=== PATIENT | female | born 1985 | race Hispanic/Latino ===

== ENCOUNTER 2018-03-17 17:52 | Emergency (ER) | payer OTHER ==
--- OUTSIDE RECORDS SUMMARY | 2018-03-17 17:54 | XMS REPORT | Clinical Summary ---
:1985 Author Organization [facility] Address [address] [place] [address] Care Team Providers Name Role Phone Rogelio Evangelista MD Primary Care Provider Allergies No Known Allergies Current Medications Not on file Active Problems Currently Estimated Date of Delivery Comments Yes 10/21/2017 No additional problems on file Encounters Date Type Specialty Care Team Description 05/08/2017 Emergency Emergency Medicine Adolph Anaya, Fall, initial encounter (Primary Dx); Intrauterine normal , first trimester after 03/16/2017 Social History Tobacco Use Types Packs/Day Years Used Date Never Smoker Alcohol Use Drinks/Week oz/Week Comments No Currently Estimated Date of Delivery Comments Yes 10/21/2017 Sex Assigned at Date Recorded Not on file Last Filed Vital Signs Vital Sign Reading Time Taken Blood Pressure 116/57 05/08/2017 3:54 PM CDT Pulse 80 05/08/2017 3:54 PM CDT Temperature 36.4 C (97.5 F) 05/08/2017 3:54 PM CDT Respiratory Rate 16 05/08/2017 3:54 PM CDT Oxygen Saturation 98% 05/08/2017 3:54 PM CDT Inhaled Oxygen Concentration - - Weight - - Height 167.6 cm (5' 6") 05/08/2017 1:26 PM CDT Body Mass Index - - Plan of Treatment Health Maintenance Due Date Last Done Comments CERVICAL CANCER SCREENING 2008 INFLUENZA VACCINE 04/15/2018 Procedures Procedure Name Priority Date/Time Associated Comments Diagnosis US SINGLE STAT 05/08/2017 3:04 Results for this LESS THAN 14 WEEKS PM CDT procedure are in the results section. US STAT 05/08/2017 3:04 Results for this TRANSVAGINAL PM CDT procedure are in the results section. URINALYSIS STAT 05/08/2017 2:06 Results for this PM CDT procedure are in the results section. after 03/16/2017 Results US Single Less Than 14 Weeks (05/08/2017 3:04 PM) Narrative Performed At EXAMINATION:US SINGLE LESS THAN 14 WEEKS [facility] CLINICAL HISTORY:pain after fall at 16 weeks COMPARISON:None. TECHNIQUE:Transverse and longitudinal transvaginal and transabdominal sonographic images of the pelvis were obtained. Grayscale, color Doppler, and spectral waveform analysis of the ovarian vessels was performed. FINDINGS: A live intrauterine gestation measuring 14 weeks 1 day by ultrasound demonstrates a cardiac rate of 160 bpm. The placenta is posterior, though the inferior placental tip is not imaged, in particular relative to the cervix, and follow-up traditional OB ultrasound is therefore recommended, though this could possibly be performed on a nonemergent outpatient basis. The right ovary measures3.7 x 2.1 x 2.7 cm and appears normal. The left ovary is not visualized. Blood flow is documented within the right ovary.. No suspicious fluid is identified.There is a small nabothian cyst. Impression: Live IUP measuring 14 weeks 1 day by ultrasound. ENDOMETRIAL THICKNESS GUIDELINES Pre-menopausal *Menstrual phase : 1 - 4 mm *Proliferative phase (days 6-14) : 5 - 7 mm *Late proliferative phase (trilaminar appearance) : up to 11 mm *Secretory Phase : 7 - 16 mm Post-menopausal without bleeding (acceptable ranges are less well-established) * Up to 8 -11 mm *Greater than 11 mm should prompt biopsy Post-menopausal with bleeding *Atrophy : 5 mm or less *Abnormal : greater than 5mm should prompt biopsy Post-menopausal on Tamoxifen *Normal : 5 mm or less *Abnormal : greater than 5 mm (high-rate of false of positive. consider hysteroscopy and biopsy on all patients with bleeding on Tamoxifen) [facility]-[id number] Procedure Note Interface, Radiology Results Incoming - 05/08/2017 3:36 PM CDT EXAMINATION: US SINGLE LESS THAN 14 WEEKS CLINICAL HISTORY: pain after fall at 16 weeks COMPARISON: None. TECHNIQUE:Transverse and longitudinal transvaginal and transabdominal sonographic images of the pelvis were obtained. Grayscale, color Doppler, and spectral waveform analysis of the ovarian vessels was performed. FINDINGS: A live intrauterine gestation measuring 14 weeks 1 day by ultrasound demonstrates a cardiac rate of 160 bpm. The placenta is posterior, though the inferior placental tip is not imaged, in particular relative to the cervix, and follow-up traditional OB ultrasound is therefore recommended, though this could possibly be performed on a nonemergent outpatient basis. The right ovary measures 3.7 x 2.1 x 2.7 cm and appears normal. The left ovary is not visualized. Blood flow is documented within the right ovary.. No suspicious fluid is identified. There is a small nabothian cyst. Impression: Live IUP measuring 14 weeks 1 day by ultrasound. ENDOMETRIAL THICKNESS GUIDELINES Pre-menopausal * Menstrual phase : 1 - 4 mm * Proliferative phase (days 6-14) : 5 - 7 mm * Late proliferative phase (trilaminar appearance) : up to 11 mm * Secretory Phase : 7 - 16 mm Post-menopausal without bleeding (acceptable ranges are less well-established) * Up to 8 -11 mm * Greater than 11 mm should prompt biopsy Post-menopausal with bleeding * Atrophy : 5 mm or less * Abnormal : greater than 5mm should prompt biopsy Post-menopausal on Tamoxifen * Normal : 5 mm or less * Abnormal : greater than 5 mm (high-rate of false of positive. consider hysteroscopy and biopsy on all patients with bleeding on Tamoxifen) [facility]-[id number] Performing Organization Address City/[facility] Phone Number [email or web address] [place] [address] US Transvaginal (05/08/2017 3:04 PM) Narrative Performed At EXAMINATION:US TRANSVAGINAL [facility] CLINICAL HISTORY:Trauma IMPRESSION: Please see accession number [id number] for report. [id number] Procedure Note Interface, Radiology Results Incoming - 05/08/2017 3:08 PM CDT EXAMINATION: US TRANSVAGINAL CLINICAL HISTORY: Trauma IMPRESSION: Please see accession number [id number] for report. [id number] Performing Organization Address City/[facility] Phone Number [email or web address] [place] [address] Urinalysis (05/08/2017 2:06 PM) Glucose, UA Negative Negative DEPART[facility] OF PATHOLOGY [facility] GENOMIC MEDICINE, [facility] Bilirubin, UA Positive@UBIL (A) Negative DEPARTMENT OF PATHOLOGY AND GENOMIC MEDICINE, [facility] Ketones, UA Negative Negative DEPARTMENT OF PATHOLOGY AND GENOMIC MEDICINE, [facility] Specific gravity, UA =>1.030 1.001 - 1.035 [facility] Blood, UA Trace (A) Negative [facility] pH, UA 5.5 5.0 - 8.5 [facility] Protein, UA 1+ (A) Negative [facility] Urobilinogen, UA 2.0 (A) <2.0 [facility] Nitrite, UA Negative Negative [facility] Leukocyte esterase, UA Negative Negative [facility] Color, UA Dark Yellow [facility] Appearance, UA Slightly Hazy [facility] Specimen Urine Performing Organization Address City/State/[facility] Phone Number DEPARTMENT OF PATHOLOGY AND [address] [place] [id number] [place] [address] after 03/16/2017 Insurance Payer Benefit Plan / Group Subscriber ID Type Phone Address MEDICAID MEDICAID xxxxxxxxx Medicaid Work: [id number] [employer]AR[employer] [phone] [place], [place] [address] Home: [phone] [facility]
[2018-03-17] MEDS ORDERED: ONDANSETRON 4 MG/2 ML VIAL ONE (19:10)
[2018-03-17] MEDS ORDERED: MECLIZINE HCL 12.5 MG TAB ONE (19:10)
[2018-03-17] MEDS ORDERED: NA CHLORIDE 0.9% 1,000 ML ONE (19:10)
--- NOTE | 2018-03-17 19:25 | RAD REPORT ---
EXAM DESCRIPTION: RAD - Chest Single View - 03/17/2018 7:21 pm CLINICAL HISTORY: Hypertension Chest pain. COMPARISON: None FINDINGS: Portable technique limits examination quality. The lungs are grossly clear. The heart is normal in size. No displaced fractures. IMPRESSION: No acute intrathoracic process suspected.
--- NOTE | 2018-03-17 19:25 | RAD REPORT ---
EXAM DESCRIPTION: CT - Head Brain Wo Cont - 03/17/2018 7:15 pm CLINICAL HISTORY: elevated blood pressure;Dizziness;Headache COMPARISON: <Comparisons> TECHNIQUE: All CT scans are performed using dose optimization technique as appropriate and may inclu de automated exposure control or mA/KV adjustment according to patient size. FINDINGS: No intracranial hemorrhage, hydrocephalus or extra-axial fluid collection.No areas of brai n edema or evidence of midline shift. The paranasal sinuses and mastoids are clear. The calvarium is intact. IMPRESSION: No acute intracranial abnormality.
[2018-03-17 19:51] LABS: Absolute Lymphocytes (CBC) 2.1 K/uL (0.7-4.9); Absolute Monocytes 0.7 K/uL (0.1-1.3); Absolute Neutrophil 7.6 K/uL (1.8-8.0); Basophils % 0.4 % (0-1.3); Eosinophils % 0.2 % (0-4.4); Hematocrit 36.7 % (36.0-45.0); Lymphocytes % 20.3 % (15.3-44.8); MCH 26.6 pg (27.0-35.0); MCV 79.5 fL (80-100); MPV 8.7 fL (7.6-11.3); Monocytes % 6.6 % (3.3-12.3); RBC Red Blood Cell Count 4.61 M/uL (3.86-4.86)
[2018-03-17 19:57] LABS: Protime INR 1.13
[2018-03-17 20:13] LABS: ALT/SGPT 94 U/L (12-78); AST/SGOT 66 U/L (15-37); Albumin 3.7 g/dL (3.4-5.0); Alkaline Phosphatase 92 U/L (45-117); BUN Blood Urea Nitrogen 14 mg/dL (7-18); Bicarbonate 24 mmol/L (21-32); Bilirubin Direct < 0.1 mg/dL (0-0.2); Bilirubin Total 0.4 mg/dL (0.2-1.0); CKMB Creatine Kinase MB < 1.0 ng/mL (0.3-3.6); Creatine Phosphokinase 126 U/L (26-192); Glucose Level 104 mg/dL (74-106); Magnesium 2.2 mg/dL (1.8-2.4); Potassium 3.8 mmol/L (3.5-5.1); Protein, Total 8.2 g/dL (6.4-8.2); Sodium Level 139 mmol/L (136-145)
[2018-03-17 20:54] LABS: Urine Blood 3+ (NEG); Urine Glucose NEGATIVE (NEG); Urine Protein TRACE (NEG)
[2018-03-17] MEDS ORDERED: ACETAMINOPHEN 500 MG TAB ONE (21:05)
[2018-03-17] MEDS ORDERED: METOCLOPRAMIDE 10 MG/2mL INJ ONE (21:05)
--- NOTE | 2018-03-17 21:29 | EDPHYS ---
Physician Documentation [facility] Name: Zehra Carrillo Age: 32 yrs Sex: Female : 1985 Arrival Date: 03/17/2018 Time: 17:56 Bed 19 Private MD: Go Evangelista E ED Physician Obinna Ladd HPI: 03/17 19:00 This 32 yrs old Female presents to ER via Ambulatory with complaints of High cp Blood Pressure, Headache, Dizziness. 19:00 The patient has elevated blood pressure and discovered this dentist office. Onset: The cp symptoms/episode began/occurred today. Severity of symptoms: At its worst the blood pressure was 160 mm Hg, in the emergency department the blood pressure is improved, 122 mm Hg. 19:00 Associated signs and symptoms: Pertinent positives: dizziness, headache, general cp weakness, Pertinent negatives: chest pain, visual changes, vomiting. 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 - Social history:: Smoking status: Patient/guardian denies using tobacco, Patient/guardian denies using alcohol. - Ebola Screening: : Patient negative for fever greater than or equal to 101.5 degrees Fahrenheit, and additional compatible Ebola Virus Disease symptoms Patient denies exposure to infectious person Patient denies travel to an Ebola-affected area in the 21 days before illness onset. ROS: 19:10 Constitutional: Negative for body aches, chills, fever, poor PO intake. cp 19:10 Eyes: Negative for injury, pain, redness, and discharge. cp 19:10 ENT: Negative for drainage from ear(s), ear pain, sore throat, difficulty swallowing, difficulty handling secretions. 19:10 Cardiovascular: Negative for chest pain, edema, palpitations. 19:10 Respiratory: Negative for cough, shortness of breath, wheezing. 19:10 Abdomen/GI: Negative for abdominal pain, vomiting, diarrhea, constipation, anorexia, black/tarry stool, rectal bleeding. 19:10 Back: Negative for pain at rest, pain with movement, radiated pain. 19:10 : Negative for urinary symptoms. 19:10 Skin: Negative for cellulitis, rash. 19:10 Neuro: Positive for dizziness, headache, general weakness, Negative for altered mental status, syncope, near syncope, visual changes. 19:10 All other systems are negative. Exam: 19:15 Constitutional: The patient appears in no acute distress, alert, awake, cp non-diaphoretic, non-toxic, well developed, well nourished. 19:15 Head/Face: Normocephalic, atraumatic. Eyes: Pupils equal round and reactive to light, cp extra-ocular motions intact. Lids and lashes normal. Conjunctiva and sclera are non-icteric and not injected. Cornea within normal limits. Periorbital areas with no swelling, redness, or edema. ENT: Nares patent. No nasal discharge, no septal abnormalities noted. Tympanic membranes are normal and external auditory canals are clear. Oropharynx with no redness, swelling, or masses, exudates, or evidence of obstruction, uvula midline. Mucous membranes moist. Neck: Trachea midline, no thyromegaly or masses palpated, and no cervical lymphadenopathy. Supple, full range of motion without nuchal rigidity, or vertebral point tenderness. No Meningismus. Chest/axilla: Normal chest wall appearance and motion. Nontender with no deformity. No lesions are appreciated. Cardiovascular: Regular rate and rhythm with a normal S1 and S2. No gallops, murmurs, or rubs. Normal PMI, no JVD. No pulse deficits. Respiratory: Lungs have equal breath sounds bilaterally, clear to auscultation and percussion. No rales, rhonchi or wheezes noted. No increased work of breathing, no retractions or nasal flaring. Abdomen/GI: Soft, non-tender, with normal bowel sounds. No distension or tympany. No guarding or rebound. No evidence of tenderness throughout. Skin: Warm, dry with normal turgor. Normal color with no rashes, no lesions, and no evidence of cellulitis. Neuro: Awake and alert, GCS 15, oriented to person, place, time, and situation. Cranial nerves II-XII grossly intact. Motor strength 5/5 in all extremities. Sensory grossly intact. Cerebellar exam normal. Normal gait. 19:37 ECG was reviewed by the Attending Physician. cp Vital Signs: 18:02 BP 112 / 80; Pulse 93; Resp 18; Temp 98.4(O); Pulse Ox 100% on R/A; Weight 103.42 kg; hj Height 5 ft. 6 in. (167.64 cm); Pain 10/10; 18:50 BP 122 / 87; Pulse 89; Resp 14; Temp 98.5; Pulse Ox 99% on R/A; Pain 8/10; ch 19:30 BP 108 / 71; Pulse 85; Resp 18; Pulse Ox 98% on R/A; lp1 20:30 BP 112 / 69; Pulse 80; Resp 16; Pulse Ox 98% on R/A; lp1 21:30 BP 124 / 79; Pulse 82; Resp 17; Pulse Ox 99% on R/A; lp1 18:02 Body Mass Index 36.80 (103.42 kg, 167.64 cm) hj MDM: 18:32 Patient medically screened. cp 19:00 Differential diagnosis: hypertensive crisis, Malignant HTN, CVA, intracerebral cp hemorrhage, vertigo, electrolyte abnormality. 21:25 Data reviewed: vital signs, nurses notes, lab test result(s), EKG, radiologic studies, cp CT scan, plain films. 21:25 Test interpretation: by ED physician or midlevel provider: ECG, plain radiologic cp studies. Counseling: I had a detailed discussion with the patient and/or guardian regarding: the historical points, exam findings, and any diagnostic results supporting the discharge/admit diagnosis, lab results, radiology results, the need for outpatient follow up, a family practitioner, to return to the emergency department if symptoms worsen or persist or if there are any questions or concerns that arise at home. Response to treatment: the patient's symptoms have markedly improved after treatment, and as a result, I will discharge patient. 03/17 18:56 Order name: Basic Metabolic Panel cp 03/17 18:56 Order name: CBC with Diff; Complete Time: 20:27 cp 03/17 20:27 Interpretation: Normal except: MCV 79.5; MCH 26.6; RDW 16.2. cp 03/17 18:56 Order name: Ckmb; Complete Time: 20:27 cp 03/17 18:56 Order name: CPK; Complete Time: 20:27 cp 03/17 18:56 Order name: LFT's; Complete Time: 20:27 cp 03/17 20:27 Interpretation: Normal except: AST 66; ALT 94; GLOB 4.5; A/G 0.8. 03/17 18:56 Order name: Magnesium; Complete Time: 20:27 cp 03/17 20:45 Interpretation: MG 2.2; Reviewed. 03/17 18:56 Order name: PT-INR; Complete Time: 20:27 cp 03/17 20:44 Interpretation: PT 13.3; Reviewed. 03/17 18:56 Order name: Ptt, Activated; Complete Time: 20:27 cp 03/17 18:56 Order name: Troponin (emerg Dept Use Only); Complete Time: 20:27 cp 03/17 20:28 Interpretation: TROPED < 0.02; Reviewed. 03/17 18:56 Order name: Basic Metabolic Panel; Complete Time: 20:27 EDNY 03/17 20:28 Interpretation: Normal except: CL 109. 03/17 20:49 Order name: Urine Dipstick--Ancillary (enter results) [facility] 03/17 20:49 Order name: Urine --Ancillary (enter results) [facility] 03/17 20:50 Order name: Urine Dipstick-Ancillary [facility] 03/17 20:50 Order name: Urine --Ancillary [facility] 03/17 18:56 Order name: CT Head Brain wo Cont; Complete Time: 19:30 03/17 19:30 Interpretation: Report reviewed. 03/17 18:56 Order name: Urine Test (obtain specimen); Complete Time: 20:48 03/17 18:56 Order name: XRAY Chest (1 view); Complete Time: 19:30 03/17 18:56 Order name: EKG; Complete Time: 18:56 03/17 18:56 Order name: Cardiac monitoring; Complete Time: 19:04 cp 03/17 18:56 Order name: EKG - Nurse/Tech; Complete Time: 19:45 cp 03/17 18:56 Order name: IV Saline Lock; Complete Time: 19:45 cp 03/17 18:56 Order name: Labs collected and sent; Complete Time: 19:45 cp 03/17 18:56 Order name: O2 Per Protocol; Complete Time: 19:04 cp 03/17 18:56 Order name: O2 Sat Monitoring; Complete Time: 19:04 cp 03/17 18:56 Order name: Urine Dipstick-Ancillary (obtain specimen); Complete Time: 20:48 cp EC:37 Rate is 84 beats/min. Rhythm is regular. NV interval is normal. QRS interval is normal. cp QT interval is normal. No ST changes noted. Interpreted by me. Reviewed by me. Administered Medications: 19:44 Drug: Meclizine 25 mg Route: PO; lp1 20:47 Follow up: Response: Other; Dizziness slightly decreased lp1 19:45 Drug: NS 0.9% 1000 ml Route: IV; Rate: 1 bolus; Site: right antecubital; lp1 21:20 Follow up: IV Status: Completed infusion; IV Intake: 1000ml lp1 19:45 Drug: Zofran 4 mg Route: IVP; Site: right antecubital; lp1 20:48 Follow up: Response: Marked relief of symptoms lp1 21:10 Drug: Reglan 10 mg Route: IVP; Site: right antecubital; lp1 21:10 Drug: Tylenol 1000 mg Route: PO; lp1 Disposition: 03/17/18 21:29 Discharged to Home. Impression: Dizziness, Headache, Weakness - General. - Condition is Stable. - Discharge Instructions: Dizziness, General Headache Without Cause, Weakness. - Prescriptions for Meclizine 25 mg Oral Tablet - take 1 tablet by ORAL route every 8 hours As needed; 30 tablet. Zofran 4 mg Oral Tablet - take 1 tablet by ORAL route every 12 hours As needed; 20 tablet. - Medication Reconciliation Form, Thank You Letter, Antibiotic Education, Prescription Opioid Use form. - Follow up: Private Physician; When: 2 - 3 days; Reason: Recheck today's complaints. - Problem is new. - Symptoms have improved. Addendum: 03/19/2018 03:42 Co-signature as Attending Physician, Obinna Ladd MD. g s Signatures: Dispatcher [employer] EDRylie Fajardo RN RN lp1 Brent Garcia RN RN hj Page, Corey, PA PA cp Starr, Gregory, MD MD gs Corrections: (The following items were deleted from the chart) 03/17 21:33 21:29 03/17/2018 21:29 Discharged to Home. Impression: Dizziness; Headache; Weakness - lp1 General. Condition is Stable. Forms are Medication Reconciliation Form, Thank You Letter, Antibiotic Education, Prescription Opioid Use. Follow up: Private Physician; When: 2 - 3 days; Reason: Recheck today's complaints. Problem is new. Symptoms have improved. cp
--- NOTE | 2018-03-17 21:29 | ER ---
Nurse's Notes [facility] Name: Zehra Carrillo Age: 32 yrs Sex: Female : 1985 Arrival Date: 03/17/2018 Time: 17:56 Bed 19 Private MD: Go Evangelista E Diagnosis: Dizziness;Headache;Weakness-General Presentation: 03/17 17:58 Presenting complaint: Patient states: i was at the dentist clinic for a procedure, but hj they didn't do the procedure because my BP was so high; reports dizziness and headache; BP at the dentist is 160/95;. Transition of care: patient was not received from another setting of care. Onset of symptoms was March 17, 2018. Risk Assessment: Do you want to hurt yourself or someone else? Patient reports no desire to harm self or others. Initial Sepsis Screen: Does the patient meet any 2 criteria? No. Patient's initial sepsis screen is negative. Does the patient have a suspected source of infection? No. Patient's initial sepsis screen is negative. Care prior to arrival: None. 17:58 Method Of Arrival: Ambulatory 17:58 Acuity: FRANCISCO 3 Triage Assessment: 18:01 Headache History: Denies prior headaches. General: Appears in no apparent distress. hj uncomfortable, Behavior is calm, cooperative, appropriate for age. Pain: Complains of pain in head Pain currently is 10 out of 10 on a pain scale. Pain began Also complains of nausea. Neuro: Level of Consciousness is awake, alert, obeys commands, Oriented to person, place, time, situation, Appropriate for age. 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 - Social history:: Smoking status: Patient/guardian denies using tobacco, Patient/guardian denies using alcohol. - Ebola Screening: : Patient negative for fever greater than or equal to 101.5 degrees Fahrenheit, and additional compatible Ebola Virus Disease symptoms Patient denies exposure to infectious person Patient denies travel to an Ebola-affected area in the 21 days before illness onset. Screenin:02 Abuse screen: Denies threats or abuse. Denies injuries from another. Nutritional hj screening: No deficits noted. Tuberculosis screening: No symptoms or risk factors identified. Fall Risk None identified. Assessment: 18:20 Reassessment: when pt tracks with her eyes, states she gets very dizzy. General: ch Appears in no apparent distress. uncomfortable, Behavior is calm, cooperative, appropriate for age. Pain: Complains of pain in head Pain currently is 8 out of 10 on a pain scale. Pain began suddenly. Neuro: Level of Consciousness is awake, alert, obeys commands, Oriented to person, place, time, situation, Lead Carpenter are equal bilaterally Moves all extremities. Full function Gait is steady, Speech is normal, Facial symmetry appears normal, Facial symmetry: tongue is midline, Pupils are PERRLA, Reports dizziness, headache. Cardiovascular: Heart tones S1 S2 present Capillary refill < 3 seconds in bilateral fingers toes Clubbing of nail beds is absent Pulses are all present. Edema is 1+ to left ankle and right ankle. Respiratory: Airway is patent Respiratory effort is even, unlabored, Breath sounds are clear bilaterally. GI: Abdomen is obese, Bowel sounds present X 4 quads. Abd is soft and non tender X 4 quads. Reports nausea. : No signs and/or symptoms were reported regarding the genitourinary system. EENT: No signs and/or symptoms were reported regarding the EENT system. Derm: Skin is pink, warm \T\ dry. Musculoskeletal: Circulation, motion, and sensation intact. Capillary refill < 3 seconds, in bilateral fingers. toes. 19:30 General: Appears uncomfortable, Behavior is appropriate for age. Pain: Complains of lp1 pain in head Aggravated by increased activity, Noted to be withdrawn. Neuro: Level of Consciousness is awake, alert, obeys commands, Oriented to person, place, time, situation, Moves all extremities. Full function Gait is steady, Speech is normal, Pupils are PERRLA, Reports dizziness, on movement headache. Cardiovascular: Patient's skin is warm and dry. Rhythm is sinus rhythm. Respiratory: Respiratory effort is even, unlabored, Breath sounds are clear bilaterally. GI: Reports nausea. : No signs and/or symptoms were reported regarding the genitourinary system. EENT: No signs and/or symptoms were reported regarding the EENT system. Derm: Skin is pink, warm \T\ dry. Musculoskeletal: Circulation, motion, and sensation intact. 20:30 Reassessment: Patient appears in no apparent distress at this time. No changes from lp1 previously documented assessment. Patient states nausea relief, some dizziness relief; States continued headache. 21:29 Reassessment: Patient states ready to leave at this time; ready to take child home; lp1 Does not want to wait for discharge papers. Vital Signs: 18:02 BP 112 / 80; Pulse 93; Resp 18; Temp 98.4(O); Pulse Ox 100% on R/A; Weight 103.42 kg; hj Height 5 ft. 6 in. (167.64 cm); Pain 10/10; 18:50 BP 122 / 87; Pulse 89; Resp 14; Temp 98.5; Pulse Ox 99% on R/A; Pain 8/10; ch 19:30 BP 108 / 71; Pulse 85; Resp 18; Pulse Ox 98% on R/A; lp1 20:30 BP 112 / 69; Pulse 80; Resp 16; Pulse Ox 98% on R/A; lp1 21:30 BP 124 / 79; Pulse 82; Resp 17; Pulse Ox 99% on R/A; lp1 18:02 Body Mass Index 36.80 (103.42 kg, 167.64 cm) ED Course: 17:56 Patient arrived in ED. rg4 17:56 Go Evangelista MD is Private Physician. rg4 18:00 Triage completed. hj 18:02 Arm band placed on left wrist. hj 18:03 Patient has correct armband on for positive identification. Placed in gown. Bed in low hj position. Call light in reach. Side rails up X 1. Adult w/ patient. 18:12 Jeannette Gilliland, RICARDO is Primary Nurse. ch 18:30 Anibal Varner PA is PHCP. cp 18:31 Obinna Ladd MD is Attending Physician. cp 18:50 No apparent distress. Resting quietly. ch 18:50 No provider procedures requiring assistance completed. ch 19:[address] via wheelchair. sj 19:06 Report given to Rylie. ch 19:14 CT completed. Patient tolerated procedure well. Patient moved to radiology. nj 19:15 CT Head Brain wo Cont In Process Unspecified. EDMS 19:20 X-ray completed. Patient tolerated procedure poorly. Patient moved back from radiology. 1 19:20 XRAY Chest (1 view) In Process Unspecified. EDMS 19:20 Inserted saline lock: 20 gauge in right antecubital area, using aseptic technique. lp1 Blood collected. 19:44 Rylie Rosales, RN is Primary Nurse. lp1 21:31 IV discontinued, No redness/swelling at site. Pressure dressing applied. lp1 Administered Medications: 19:44 Drug: Meclizine 25 mg Route: PO; lp1 20:47 Follow up: Response: Other; Dizziness slightly decreased lp1 19:45 Drug: NS 0.9% 1000 ml Route: IV; Rate: 1 bolus; Site: right antecubital; lp1 21:20 Follow up: IV Status: Completed infusion; IV Intake: 1000ml lp1 19:45 Drug: Zofran 4 mg Route: IVP; Site: right antecubital; lp1 20:48 Follow up: Response: Marked relief of symptoms lp1 21:10 Drug: Reglan 10 mg Route: IVP; Site: right antecubital; lp1 21:10 Drug: Tylenol 1000 mg Route: PO; lp1 Intake: 21:20 IV: 1000ml; Total: 1000ml. lp1 Outcome: 21:29 Discharge ordered by MD. cp 21:31 Discharged to home ambulatory. lp1 21:31 Condition: good 21:31 Instructed on Follow-up with PCP if symptoms persist; Patient did not wait for discharge papers 21:33 Patient left the ED. 1 Signatures: Dispatcher [employer] EDMS Jeannette Gilliland, Barbara Haro RN, ch 1 Rae Andino Laura, RICARDO RN 1 Brent Garcia RN RN hj Page, Corey, PA PA cp Garcia, Rubi Arslan Carranza Corrections: (The following items were deleted from the chart) 18:04 18:02 Pulse 93bpm; Resp 18bpm; Pulse Ox 100% RA; Temp 98.4F Oral; 103.42 kg; Height 5 hj ft. 6 in.; BMI: 36.8; Pain 10/10; hj
[2018-03-17 21:42] VITALS: TEMP 98.5
[2018-03-17 21:44] VITALS: BP 108/71; O2SAT 98
--- NOTE | 2018-03-18 09:24 | EKG ---
Test Date: 2018-03-17 Test Time: 19:28:31 Screen Roller: MEAGAN MEASUREMENT RESULTS: Intervals: Rate: 84 AK: 130 QRSD: 92 QT: 360 QTc: 425 Homer: P: 15 AK: 130 QRS: 5 T: 12 INTERPRETIVE STATEMENTS: Normal sinus rhythm Normal ECG No previous ECG available for comparison Electronically Signed On 03-18-18 09:22:51 CDT by Gutierrez Lion
== END 2018-03-17 21:33 | disposition home or self-care (01) ==
LOC: ER 17:52
DX: R51 Headache (principal); R53.1 Weakness; F90.9 Attention-deficit hyperactivity disorder, unspecified type
CPT/HCPCS: 36415; 70450; 71045; 80048; 80076; 81003; 81025; 82550; 82553; 83735; 84484; 85025; 85610; 85730; 93005; 96361; 96374; 96375; 99285; J2405; J2765; J7030

== ENCOUNTER 2019-03-01 10:05 | Emergency (ER) | payer OTHER, SELFPAY ==
--- OUTSIDE RECORDS SUMMARY | 2019-03-01 10:07 | XMS REPORT | Clinical Summary ---
:1985 Author Organization [facility] Address [address] [place] [address] Care Team Providers Name Role Phone Rogelio Evangelista MD Primary Care Provider Allergies No Known Allergies Medications Not on file Active Problems Estimated Date of Delivery Comments Yes 10/21/2017 No additional problems on file Social History Tobacco Use Types Packs/Day Years Used Date Never Smoker Alcohol Use Drinks/Week oz/Week Comments No Estimated Date of Delivery Comments Yes 10/21/2017 Sex Assigned at Date Recorded Not on file Job Start Date Occupation Industry Not on file Not on file Not on file Travel History Travel Start Travel End No recent travel history available. Last Filed Vital Signs Not on file Plan of Treatment Health Maintenance Due Date Last Done Comments INFLUENZA VACCINE 04/15/2019 Results Not on fileafter 02/28/2018 [id number] (Work) Advance Directives Patient has advance care planning documents on file. For more information, please contact:[id number] [place] [address]
[2019-03-01] MEDS ORDERED: PIPER/TAZO/NS 3.375gm 3.375 GM/100 ML BAG ONE (10:56)
[2019-03-01] MEDS ORDERED: KETOROLAC 30 MG/ML INJ ONE (10:56)
[2019-03-01] MEDS ORDERED: FENTANYL CITR 100 MCG/2 ML ONE ×2 (10:56→13:21)
[2019-03-01 11:00] LABS: Absolute Lymphocytes (CBC) 1.6 K/uL (0.7-4.9); Basophils % 0.3 % (0-1.3); Eosinophils % 0.3 % (0-4.4); Hematocrit 40.8 % (36.0-45.0); MPV 8.8 fL (7.6-11.3); Monocytes % 6.5 % (3.3-12.3); RBC Red Blood Cell Count 4.59 M/uL (3.86-4.86)
[2019-03-01 11:26] LABS: Albumin 3.5 g/dL (3.4-5.0); Bilirubin Total 0.6 mg/dL (0.2-1.0); Potassium 3.4 mmol/L (3.5-5.1); Protein, Total 8.2 g/dL (6.4-8.2)
[2019-03-01 11:56] LABS: Urine Blood TRACE (NEG); Urine Glucose NEGATIVE (NEG); Urine Protein 1+ (NEG)
[2019-03-01] MEDS ORDERED: POTASSIUM 25 MEQ EFFERV TAB ONE (12:02)
--- NOTE | 2019-03-01 12:23 | RAD REPORT ---
EXAM DESCRIPTION: CT - Int Auditory Canals W/Contr - 03/01/2019 11:44 am CLINICAL HISTORY: R ear infection. r/o mastoiditis COMPARISON: <Comparisons> TECHNIQUE: The temporal bones were scanned in the direct axial plane using high resolution thin slic es without contrast. Coronal and sagittal reformatted images were obtained and reviewed. IV contrast was administered. All CT scans are performed using dose optimization technique as appropriate and may include automated exposure control or mA/KV adjustment according to patient size. FINDINGS: On the right, there is very significant inflammatory change involving the external auditory canal wit h very prominent soft tissue filling the external canal. The tissue is phlegmonous in nature without a drainable abscess suspected. The middle ear cavity is filled with fluid with a small amount of air present. No ossicular erosion seen. Fluid is present in the mastoid air cell with adjacent skin thick ening present. Early mastoiditis is likely. No thrombosis seen involving the sigmoid sinus or right i nternal jugular vein. On the left, there is evidence of external auditory canal soft tissue thickening as well, however les s severe compared to the right. Some early, mild fluid is present in the middle ear cavity and left m astoid air cell, however less significant than on the right. No ossicular erosion seen. No evidence o f sigmoid sinus or internal jugular vein thrombus. IMPRESSION: A significant right sided otitis externa, otitis media and early mastoiditis suspected. Similar, but less severe early findings are present on the left.
--- NOTE | 2019-03-01 12:37 | EDPHYS ---
Physician Documentation [facility] Name: Zehra Carrillo Age: 33 yrs Sex: Female : 1985 Arrival Date: 03/01/2019 Time: 10:08 Bed 14 Private MD: Go Evangelista E ED Physician Go Liz HPI: 03/01 11:32 This 33 yrs old Female presents to ER via Ambulatory with complaints of Ear wa Pain. 11:32 The patient presents with drainage, that is purulent, pain, swelling, tenderness. The wa complaints affect the right ear > left. Onset: The symptoms/episode began/occurred 4 day(s) ago. Modifying factors: The symptoms are alleviated by nothing, the symptoms are aggravated by nothing. Associated signs and symptoms: Pertinent positives: on the right side, sore throat, Pertinent negatives: cough, fever, lightheadedness, rhinorrhea, sinus trouble. Severity of symptoms: At their worst the symptoms were moderate in the emergency department the symptoms are worse moderately. The patient has not experienced similar symptoms in the past. The patient has been recently seen by a physician: the patient's primary care provider, place on ciprodex and augmentin. 33 yo F. c/o severe R ear pain with discharge x 4 days. Now also 2 days of L ear pain. saw her PMD 2 days ago and given Ciprodex and Augmentin. states symptoms worse. denies h/o DM. CLERICAL RECEPTIONIST: 10:13 LMP N/A - control method bp Historical: - Allergies: 10:13 No Known Allergies; bp - Home Meds: 10:13 None [Active]; bp - PMHx: 10:13 ADD/ADHD; bp - Immunization history:: Adult Immunizations up to date. - Social history:: Smoking status: Patient/guardian denies using tobacco. - Ebola Screening: : No symptoms or risks identified at this time. - Family history:: not pertinent. - Hospitalizations: : No recent hospitalization is reported. ROS: 11:35 Constitutional: Negative for fever, chills, and weight loss, Eyes: Negative for injury, wa pain, redness, and discharge, Neck: Negative for injury, pain, and swelling, Cardiovascular: Negative for chest pain, palpitations, and edema, Respiratory: Negative for shortness of breath, cough, wheezing, and pleuritic chest pain, Abdomen/GI: Negative for abdominal pain, nausea, vomiting, diarrhea, and constipation, Back: Negative for injury and pain, : Negative for injury, bleeding, discharge, and swelling, MS/Extremity: Negative for injury and deformity, Skin: Negative for injury, rash, and discoloration, Neuro: Negative for headache, weakness, numbness, tingling, and seizure, Psych: Negative for depression, anxiety, suicide ideation, homicidal ideation, and hallucinations. 11:35 ENT: Positive for drainage from ear(s), ear pain, sore throat, on the right side, Negative for nasal discharge, rhinorrhea, sinus congestion. Exam: 11:37 Constitutional: This is a well developed, well nourished patient who is awake, alert, wa and in no acute distress. Head/Face: Normocephalic, atraumatic. Eyes: Pupils equal round and reactive to light, extra-ocular motions intact. Lids and lashes normal. Conjunctiva and sclera are non-icteric and not injected. Cornea within normal limits. Periorbital areas with no swelling, redness, or edema. Neck: Trachea midline, no thyromegaly or masses palpated, and no cervical lymphadenopathy. Supple, full range of motion without nuchal rigidity, or vertebral point tenderness. No Meningismus. Chest/axilla: Normal chest wall appearance and motion. Nontender with no deformity. No lesions are appreciated. Cardiovascular: Regular rate and rhythm with a normal S1 and S2. No gallops, murmurs, or rubs. Normal PMI, no JVD. No pulse deficits. Respiratory: Lungs have equal breath sounds bilaterally, clear to auscultation and percussion. No rales, rhonchi or wheezes noted. No increased work of breathing, no retractions or nasal flaring. Abdomen/GI: Soft, non-tender, with normal bowel sounds. No distension or tympany. No guarding or rebound. No evidence of tenderness throughout. Back: No spinal tenderness. No costovertebral tenderness. Full range of motion. Skin: Warm, dry with normal turgor. Normal color with no rashes, no lesions, and no evidence of cellulitis. MS/ Extremity: Pulses equal, no cyanosis. Neurovascular intact. Full, normal range of motion. Neuro: Awake and alert, GCS 15, oriented to person, place, time, and situation. Cranial nerves II-XII grossly intact. Motor strength 5/5 in all extremities. Sensory grossly intact. Cerebellar exam normal. Normal gait. Psych: Awake, alert, with orientation to person, place and time. Behavior, mood, and affect are within normal limits. 11:37 ENT: External ear(s): pain with movement, that is severe, of the pinna of right ear, R mastoid tender. traction on Pinna elicit pain. canal completely closed with noted yellowish discharge. L ear canal filled with yellow debris and discharge. no mastoid tenderness. 11:39 ENT: throat exam wnl. no swelling, redness or petechiae. wa Vital Signs: 10:13 BP 111 / 69; Pulse 75; Resp 16; Temp 97.1; Pulse Ox 97% ; Weight 104.33 kg; Height 5 bp ft. 6 in. (167.64 cm); 11:10 BP 130 / 79; Pulse 75; Resp 16; Pulse Ox 95% on R/A; aj1 12:14 BP 127 / 65; Pulse 80; Resp 18; Pulse Ox 99% on R/A; aj1 13:30 BP 97 / 65; Pulse 68; Resp 18; Pulse Ox 100% on R/A; aj1 14:20 BP 103 / 68; Pulse 64; Resp 18; Temp 98.4; Pulse Ox 100% on R/A; aj1 15:35 BP 117 / 63; Pulse 66; Resp 18; Pulse Ox 100% on R/A; aj1 10:13 Body Mass Index 37.12 (104.33 kg, 167.64 cm) bp MDM: 10:17 Patient medically screened. wa 11:40 Differential diagnosis: severe otitis externa/media. r/o R mastoid involvement. wa 12:32 Data reviewed: vital signs, nurses notes, lab test result(s), radiologic studies. Test wa interpretation: by ED physician or midlevel provider: CT: acute R side mastoiditis. Also note on the Left. R>L. labs noted for mild hyperkalemia. Response to treatment: the patient's symptoms have mildly improved after treatment. ED course: noted mastoiditis. will administer vanc IV as well. will transfer as no ENT in house for further care. 13:14 Physician consultation: 1316 hrs: spoke with Dr. Stein ENT at [facility]. accepted to ny consult on pt. advised admit to hospitalist service. 03/01 10:35 Order name: CBC with Diff; Complete Time: 11: ny 03/01 10:35 Order name: CMP; Complete Time: 11: ny 03/01 10:49 Order name: Int Auditory Canals W/Contr; Complete Time: 12:25 EDMS 03/01 10:50 Order name: Urine Dipstick--Ancillary (enter results); Complete Time: 12:23 bd 03/01 10:50 Order name: Urine --Ancillary (enter results); Complete Time: 12:23 03/01 10:35 Order name: IV Start; Complete Time: 10:54 ny 03/01 10:36 Order name: Urine Test (obtain specimen); Complete Time: 10:54 ny 03/01 10:36 Order name: Urine Dipstick-Ancillary (obtain specimen); Complete Time: 10:54 ny Administered Medications: 11:08 Drug: Zosyn 3.375 grams Route: IVPB; Infused Over: 60 mins; Site: right antecubital; aj1 12:13 Follow up: IV Status: Completed infusion; IV Intake: 100ml aj1 11:08 Drug: TORadol 30 mg Route: IVP; Site: right antecubital; aj1 12:14 Follow up: Response: No adverse reaction aj1 11:09 Drug: fentaNYL (PF) 50 mcg Route: IVP; Site: right antecubital; aj1 12:13 Follow up: Response: No adverse reaction aj1 12:13 Drug: Potassium Effervescent Tablet 50 mEq Route: PO; aj1 13:14 Follow up: Response: No adverse reaction aj1 13:13 Drug: vancoMYCIN 2 grams Route: IVPB; Rate: calculated rate; Site: right antecubital; aj1 15:35 Follow up: IV Status: Infusion continued upon transfer; IV Intake: 200ml aj1 13:13 Drug: fentaNYL (PF) 50 mcg Route: IVP; Site: right antecubital; aj1 13:45 Follow up: Response: No adverse reaction; Pain is decreased aj1 14:45 Drug: Dilaudid 1 mg Route: IVP; Site: right antecubital; aj1 15:35 Follow up: Response: No adverse reaction; Pain is decreased aj1 Disposition: 03/01/19 12:36 Transfer ordered to Other Acute Care Facility. Diagnosis are Acute R side otitis media, acute R side otitis externa, acute R side mastoiditis, acute L side otitis externa, acute L side otitis Media. - Reason for transfer: Higher level of care. - Accepting physician is . Steff. - Condition is Stable. - Problem is new. - Symptoms have improved. Signatures: Dispatcher [employer] EDNE Niecy Abdullahi RN RN aj1 Go Liz MD MD wa Peltier, Brian, RN RN bp Corrections: (The following items were deleted from the chart) 10:49 10:42 Maxillofacial W/Cont+CT.RAD.BRZ ordered. [facility] 15:42 12:36 03/01/2019 12:36 Transfer ordered to Other Acute Care Facility. Diagnosis is aj1 Acute R side otitis media; acute R side otitis externa; acute R side mastoiditis; acute L side otitis externa; acute L side otitis Media. Reason for transfer: Higher level of care. Accepting physician is [facility]. Condition is Stable. Problem is new. Symptoms have improved. paulo
--- NOTE | 2019-03-01 12:37 | ER ---
Nurse's Notes [facility] Name: Zehra Carrillo Age: 33 yrs Sex: Female : 1985 Arrival Date: 03/01/2019 Time: 10:08 Bed 14 Private MD: Go Evangelista E Diagnosis: Acute R side otitis media;acute R side otitis externa;acute R side mastoiditis;acute L side otitis externa;acute L side otitis Media Presentation: 03/01 10:11 Presenting complaint: Patient states: REFERRED BY PCP DR LEILA NAGEL FOR R OTITIS bp MEDIA SPREADING TO LEFT OTITIS EXTERNA. Transition of care: patient was not received from another setting of care. Onset of symptoms is unknown. Risk Assessment: Do you want to hurt yourself or someone else? Patient reports no desire to harm self or others. Initial Sepsis Screen: Does the patient meet any 2 criteria? No. Patient's initial sepsis screen is negative. Does the patient have a suspected source of infection? No. Patient's initial sepsis screen is negative. Care prior to arrival: None. 10:11 Method Of Arrival: Ambulatory bp 10:11 Acuity: FRANCISCO 3 bp Triage Assessment: 10:13 General: Appears in no apparent distress. uncomfortable, Behavior is cooperative, bp appropriate for age, anxious. Pain: Complains of pain in right ear and left ear. EENT: Reports pain in left ear and right ear. 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 - Social history:: Smoking status: Patient/guardian denies using tobacco. - Ebola Screening: : No symptoms or risks identified at this time. - Family history:: not pertinent. - Hospitalizations: : No recent hospitalization is reported. Screenin:21 Abuse screen: Denies threats or abuse. Denies injuries from another. Nutritional aj1 screening: No deficits noted. Tuberculosis screening: No symptoms or risk factors identified. 15:37 Fall Risk None identified. aj1 Assessment: 10:21 General: Appears in no apparent distress. uncomfortable, Behavior is calm, cooperative, aj1 appropriate for age. Pain: Complains of pain in right ear, left ear and right jaw Pain currently is 9 out of 10 on a pain scale. Neuro: Level of Consciousness is awake, alert, obeys commands, Oriented to person, place, time, situation. Cardiovascular: Patient's skin is warm and dry. Respiratory: Airway is patent Respiratory effort is even, unlabored, Respiratory pattern is regular, symmetrical. GI: No signs and/or symptoms were reported involving the gastrointestinal system. : No signs and/or symptoms were reported regarding the genitourinary system. EENT: Reports ear pain, states that she was seen at her PCP office 3 days ago and given Rx for antibiotics, the pain was not getting any better and the other ear was beginning to hurt so she returned to her PCP for follow up today, he attempted to flush her ear, but the procedure was extremely painful for the patient, so she was advised to come to the emergency room for further evaluation. Derm: No signs and/or symptoms reported regarding the dermatologic system. Skin is pink, warm \T\ dry. normal. Musculoskeletal: No signs and/or symptoms reported regarding the musculoskeletal system. Circulation, motion, and sensation intact. 11:10 Reassessment: Patient appears in no apparent distress at this time. No changes from aj1 previously documented assessment. Patient and/or family updated on plan of care and expected duration. Pain level reassessed. Patient is alert, oriented x 3, equal unlabored respirations, skin warm/dry/pink. 12:14 Reassessment: Patient appears in no apparent distress at this time. No changes from aj1 previously documented assessment. Patient and/or family updated on plan of care and expected duration. Pain level reassessed. Patient is alert, oriented x 3, equal unlabored respirations, skin warm/dry/pink. Patient provided socks for comfort. 13:30 Reassessment: Patient appears in no apparent distress at this time. No changes from aj1 previously documented assessment. Patient and/or family updated on plan of care and expected duration. Pain level reassessed. Patient is alert, oriented x 3, equal unlabored respirations, skin warm/dry/pink. 14:21 Reassessment: Patient appears in no apparent distress at this time. No changes from aj1 previously documented assessment. Patient and/or family updated on plan of care and expected duration. Pain level reassessed. Patient is alert, oriented x 3, equal unlabored respirations, skin warm/dry/pink. 15:33 Reassessment: Patient appears in no apparent distress at this time. No changes from aj1 previously documented assessment. Patient and/or family updated on plan of care and expected duration. Pain level reassessed. Patient is alert, oriented x 3, equal unlabored respirations, skin warm/dry/pink. Vital Signs: 10:13 BP 111 / 69; Pulse 75; Resp 16; Temp 97.1; Pulse Ox 97% ; Weight 104.33 kg; Height 5 bp ft. 6 in. (167.64 cm); 11:10 BP 130 / 79; Pulse 75; Resp 16; Pulse Ox 95% on R/A; aj1 12:14 BP 127 / 65; Pulse 80; Resp 18; Pulse Ox 99% on R/A; aj1 13:30 BP 97 / 65; Pulse 68; Resp 18; Pulse Ox 100% on R/A; aj1 14:20 BP 103 / 68; Pulse 64; Resp 18; Temp 98.4; Pulse Ox 100% on R/A; aj1 15:35 BP 117 / 63; Pulse 66; Resp 18; Pulse Ox 100% on R/A; aj1 10:13 Body Mass Index 37.12 (104.33 kg, 167.64 cm) bp ED Course: 10:08 Patient arrived in ED. mr 10:08 Go Evangelista MD is Private Physician. mr 10:13 Triage completed. bp 10:13 Arm band placed on. bp 10:15 Niecy Abdullahi RN is Primary Nurse. aj1 10:17 Go Liz MD is Attending Physician. wa 10:21 Patient has correct armband on for positive identification. Bed in low position. Call aj1 light in reach. 10:21 No provider procedures requiring assistance completed. aj1 10:50 Urine collected: clean catch specimen, mayelin colored. dh3 10:53 Initial lab(s) drawn, by me, sent to lab. Inserted saline lock: 20 gauge in right dh3 antecubital area, using aseptic technique. Blood collected. 11:47 Int Auditory Canals W/Contr In Process Unspecified. EDMS 14:26 Report given to RICARDO Tam at [facility]. aj1 15:36 Patient transferred, IV remains in place. aj1 Administered Medications: 11:08 Drug: Zosyn 3.375 grams Route: IVPB; Infused Over: 60 mins; Site: right antecubital; aj1 12:13 Follow up: IV Status: Completed infusion; IV Intake: 100ml aj1 11:08 Drug: TORadol 30 mg Route: IVP; Site: right antecubital; aj1 12:14 Follow up: Response: No adverse reaction aj1 11:09 Drug: fentaNYL (PF) 50 mcg Route: IVP; Site: right antecubital; aj1 12:13 Follow up: Response: No adverse reaction aj1 12:13 Drug: Potassium Effervescent Tablet 50 mEq Route: PO; aj1 13:14 Follow up: Response: No adverse reaction aj1 13:13 Drug: vancoMYCIN 2 grams Route: IVPB; Rate: calculated rate; Site: right antecubital; aj1 15:35 Follow up: IV Status: Infusion continued upon transfer; IV Intake: 200ml aj1 13:13 Drug: fentaNYL (PF) 50 mcg Route: IVP; Site: right antecubital; aj1 13:45 Follow up: Response: No adverse reaction; Pain is decreased aj1 14:45 Drug: Dilaudid 1 mg Route: IVP; Site: right antecubital; aj1 15:35 Follow up: Response: No adverse reaction; Pain is decreased aj1 Intake: 12:13 IV: 100ml; Total: 100ml. aj1 15:35 IV: 200ml; Total: 300ml. aj1 Outcome: 12:36 ER care complete, transfer ordered by MD. bates 15:36 Transferred by ground EMS to [facility]. aj1 15:36 Condition: stable 15:36 Discharge instructions given to patient, Instructed on the need for transfer, Demonstrated understanding of instructions. 15:42 Patient left the ED. aj1 Signatures: Dispatcher [employer] EDMS Niecy Abdullahi RN RN aj1 Zoya Fernandez, Nancy 3 Go Liz MD MD wa Peltier, Brian RN RN bp
[2019-03-01] MEDS ORDERED: VANCOMYCIN 2 GM in NA CHLORIDE 0.9% 500 ML IVPB ONE (13:00)
[2019-03-01] MEDS ORDERED: HYDROMORPHONE HCL 1 MG/ML INJ ONE (14:48)
[2019-03-01 16:13] VITALS: O2SAT 100
[2019-03-01 16:15] VITALS: BP 103/68; TEMP 98.4
== END 2019-03-01 15:42 ==
LOC: ER 10:05
DX: H66.93 Otitis media, unspecified, bilateral (principal); H60.503 Unspecified acute noninfective otitis externa, bilateral; H70.91 Unspecified mastoiditis, right ear
CPT/HCPCS: 36415; 70481; 80053; 81003; 81025; 85025; 96365; 96366; 96367; 96375; 99285; J1170; J2543; J3010; Q9967

== ENCOUNTER 2019-08-20 17:01 | Emergency (ER) | payer OTHER ==
--- OUTSIDE RECORDS SUMMARY | 2019-08-20 17:11 | XMS REPORT ---
:1985 [facility] Address [address] [place] [address] Dr. Norris [address] [place] [id number] Care Team Providers Name Role Phone LOC CORDON Unavailable Unavailable Problems This patient has no known problems. Allergies, Adverse Reactions, Alerts This patient has no known allergies or adverse reactions. Medications This patient has no known medications. Results Test Description Test Time Test Comments Text Results Atomic Results Result Comments BLOOD CULTURE 2019-03-07 09:55:00 Test Item Value Reference Range Comments CULTURE (BEAKER) (test dupz=1547) No growth in 5 days BLOOD [id number] 20:01:00 Test Item Value Reference Range Comments CULTURE (BEAKER) (test nknm=9964) No growth in 5 days EAR CULTURE + GRAM [id number] 10:54:00 Test Item Value Reference Range Comments CULTURE (BEAKER) (test PSEUDOMONAS 4+ Pseudomonas rphs=3310) AERUGINOSA aeruginosa Amikacin (test code=1) Susceptible 0-16 , Resistant <0 or >16 Aztreonam (test code=32) Susceptible 0-8 , Resistant <0 or >8 Cefepime (test code=51) Susceptible 0-8 , Resistant <0 or >8 Ceftazidime (test Susceptible 0-8 , code=27) Resistant <0 or >8 Ciprofloxacin (test Susceptible 0-0.5 , code=7) Resistant <0 or >.5 Gentamicin (test code=18) Susceptible 0-4 , Resistant <0 or >4 Imipenem (test code=19) Susceptible 0-2 , Resistant <0 or >2 Levofloxacin (test Susceptible 0-1 , code=22) Resistant <0 or >1 Meropenem (test code=34) Susceptible 0-2 , Resistant <0 or >2 Piperacillin (test Susceptible 0-16 , code=24) Resistant <0 or >16 Piperacillin + Tazobactam Susceptible 0-16 , (test code=29) Resistant <0 or >16 Tobramycin (test code=25) Susceptible 0-4 , Resistant <0 or >4 CULTURE (BEAKER) (test KLEBSIELLA 1+ Klebsiella tnjp=3996) PNEUMONIAE SSP pneumoniae ssp PNEUMONIAE pneumoniae Amikacin (test code=1) Ampicillin + Sulbactam (test code=6) Aztreonam (test code=32) Cefepime (test code=51) Cefoxitin (test code=68) Ceftazidime (test code=27) Ceftriaxone (test code=52) Ertapenem (test code=38) Gentamicin (test code=18) Levofloxacin (test code=22) Meropenem (test code=34) Nitrofurantoin (test code=23) Piperacillin + Tazobactam (test code=29) Tetracycline (test code=2) Tobramycin (test code=25) Trimethoprim + Sulfamethoxazole (test code=47) GRAM STAIN RESULT <1+ WBCs (BEAKER) (test hbuj=7990) GRAM STAIN RESULT 1+ gram variable (BEAKER) (test rods iwnl=794388) GRAM STAIN RESULT <1+ gram positive (BEAKER) (test cocci in pairs dtst=[id number]) BASIC METABOLIC [id number] 06:46:00 Test Item Value Reference Range Comments SODIUM (BEAKER) (test 137 meq/L 136-145 qjrt=792) POTASSIUM (BEAKER) (test 4.1 meq/L 3.5-5.1 vsvp=952) CHLORIDE (BEAKER) (test 106 meq/L 98-107 nhjt=840) CO2 (BEAKER) (test 23 meq/L 22-29 zbgh=820) BLOOD UREA NITROGEN 9 mg/dL 7-21 (BEAKER) (test ahji=682) CREATININE (BEAKER) (test 0.63 mg/dL 0.57-1.25 ngxs=502) GLUCOSE RANDOM (BEAKER) 93 mg/dL 70-105 (test ktkp=856) CALCIUM (BEAKER) (test 9.0 mg/dL 8.4-10.2 ubrl=111) EGFR (BEAKER) (test 110 mL/min/1.73 sq m ESTIMATED GFR IS NOT ozff=6783) ACCURATE CREATININE CLEARANCE IN PREDICTING GLOMERULAR FILTRATION RATE. ESTIMATED GFR IS NOT APPLICABLE FOR DIALYSIS PATIENTS. CBC W/PLT COUNT & AUTO [id number] 06:02:00 Test Item Value Reference Range Comments WHITE BLOOD CELL COUNT (BEAKER) (test renm=231) 7.2 K/ L 3.5-10.5 RED BLOOD CELL COUNT (BEAKER) (test ecwk=704) 4.11 M/ L 3.93-5.22 HEMOGLOBIN (BEAKER) (test ayii=687) 12.3 GM/DL 11.2-15.7 HEMATOCRIT (BEAKER) (test sxem=126) 36.6 % 34.1-44.9 MEAN CORPUSCULAR VOLUME (BEAKER) (test jenh=832) 89.1 fL 79.4-94.8 MEAN CORPUSCULAR HEMOGLOBIN (BEAKER) (test 29.9 pg 25.6-32.2 hqyl=195) MEAN CORPUSCULAR HEMOGLOBIN CONC (BEAKER) (test 33.6 GM/DL 32.2-35.5 hldd=230) RED CELL DISTRIBUTION WIDTH (BEAKER) (test 11.7 % 11.7-14.4 vnis=485) PLATELET COUNT (BEAKER) (test ktep=338) 279 K/CU MM 150-450 MEAN PLATELET VOLUME (BEAKER) (test rghu=986) 10.1 fL 9.4-12.3 NUCLEATED RED BLOOD CELLS (BEAKER) (test 0 /100 WBC 0-0 fwbn=598) NEUTROPHILS RELATIVE PERCENT (BEAKER) (test 59 % rpte=889) LYMPHOCYTES RELATIVE PERCENT (BEAKER) (test 31 % apzy=121) MONOCYTES RELATIVE PERCENT (BEAKER) (test 7 % wrfe=976) EOSINOPHILS RELATIVE PERCENT (BEAKER) (test 3 % ztta=841) BASOPHILS RELATIVE PERCENT (BEAKER) (test 1 % icta=903) NEUTROPHILS ABSOLUTE COUNT (BEAKER) (test 4.23 K/ L 1.56-6.13 fixr=775) LYMPHOCYTES ABSOLUTE COUNT (BEAKER) (test 2.22 K/ L 1.18-3.74 blkl=061) MONOCYTES ABSOLUTE COUNT (BEAKER) (test 0.48 K/ L 0.24-0.36 bfwt=977) EOSINOPHILS ABSOLUTE COUNT (BEAKER) (test 0.18 K/ L 0.04-0.36 umsw=893) BASOPHILS ABSOLUTE COUNT (BEAKER) (test 0.05 K/ L 0.01-0.08 yuwm=744) IMMATURE GRANULOCYTES-RELATIVE PERCENT (BEAKER) 1 % 0-1 (test brlk=8069) URINALYSIS W/ REFLEX URINE [id number] 14:41:00 Test Item Value Reference Range Comments COLOR (BEAKER) (test alve=838) Yellow CLARITY (BEAKER) (test ploj=279) Clear SPECIFIC GRAVITY UA (BEAKER) (test ccll=622) 1.015 1.001-1.035 PH UA (BEAKER) (test hfts=190) 7.0 5.0-8.0 PROTEIN UA (BEAKER) (test ysxu=145) Negative Negative GLUCOSE UA (BEAKER) (test ndgg=739) Negative Negative KETONES UA (BEAKER) (test tfcv=006) Negative Negative BILIRUBIN UA (BEAKER) (test fgoz=467) Negative Negative BLOOD UA (BEAKER) (test iuxm=647) Moderate Negative NITRITE UA (BEAKER) (test evqw=203) Negative Negative LEUKOCYTE ESTERASE UA (BEAKER) (test wamf=210) Moderate Negative UROBILINOGEN UA (BEAKER) (test frcq=906) 0.2 mg/dL 0.2-1.0 RBC UA (BEAKER) (test xxyc=483) 50 /HPF WBC UA (BEAKER) (test hxwi=307) 18 /HPF MUCUS (BEAKER) (test nlxg=8020) Occasional SQUAMOUS EPITHELIAL (BEAKER) (test koiz=304) 3 /HPF SOURCE(BEAKER) (test yehy=6705) BASIC METABOLIC [id number] 05:45:00 Test Item Value Reference Range Comments SODIUM (BEAKER) (test 135 meq/L 136-145 kjub=045) POTASSIUM (BEAKER) (test 4.0 meq/L 3.5-5.1 gsds=586) CHLORIDE (BEAKER) (test 104 meq/L 98-107 karr=372) CO2 (BEAKER) (test 24 meq/L 22-29 vrmf=427) BLOOD UREA NITROGEN 10 mg/dL 7-21 (BEAKER) (test phlo=397) CREATININE (BEAKER) (test 0.62 mg/dL 0.57-1.25 peoc=578) GLUCOSE RANDOM (BEAKER) 95 mg/dL 70-105 (test fboq=480) CALCIUM (BEAKER) (test 9.1 mg/dL 8.4-10.2 oobw=387) EGFR (BEAKER) (test 112 mL/min/1.73 sq m ESTIMATED GFR IS NOT dcpe=0195) ACCURATE CREATININE CLEARANCE IN PREDICTING GLOMERULAR FILTRATION RATE. ESTIMATED GFR IS NOT APPLICABLE FOR DIALYSIS PATIENTS. CBC W/PLT COUNT & AUTO [id number] 05:11:00 Test Item Value Reference Range Comments WHITE BLOOD CELL COUNT (BEAKER) (test epoc=743) 7.0 K/ L 3.5-10.5 RED BLOOD CELL COUNT (BEAKER) (test vakz=415) 4.23 M/ L 3.93-5.22 HEMOGLOBIN (BEAKER) (test fzlb=249) 12.8 GM/DL 11.2-15.7 HEMATOCRIT (BEAKER) (test yfir=094) 37.4 % 34.1-44.9 MEAN CORPUSCULAR VOLUME (BEAKER) (test wycb=192) 88.4 fL 79.4-94.8 MEAN CORPUSCULAR HEMOGLOBIN (BEAKER) (test 30.3 pg 25.6-32.2 egrm=315) MEAN CORPUSCULAR HEMOGLOBIN CONC (BEAKER) (test 34.2 GM/DL 32.2-35.5 oxet=226) RED CELL DISTRIBUTION WIDTH (BEAKER) (test 11.8 % 11.7-14.4 wjfc=538) PLATELET COUNT (BEAKER) (test cnuy=320) 262 K/CU MM 150-450 MEAN PLATELET VOLUME (BEAKER) (test mwxo=238) 9.8 fL 9.4-12.3 NUCLEATED RED BLOOD CELLS (BEAKER) (test 0 /100 WBC 0-0 gshu=106) NEUTROPHILS RELATIVE PERCENT (BEAKER) (test 54 % efxl=216) LYMPHOCYTES RELATIVE PERCENT (BEAKER) (test 36 % dzbe=047) MONOCYTES RELATIVE PERCENT (BEAKER) (test 7 % bxth=279) EOSINOPHILS RELATIVE PERCENT (BEAKER) (test 2 % kpsl=567) BASOPHILS RELATIVE PERCENT (BEAKER) (test 0 % bbts=510) NEUTROPHILS ABSOLUTE COUNT (BEAKER) (test 3.80 K/ L 1.56-6.13 hrot=419) LYMPHOCYTES ABSOLUTE COUNT (BEAKER) (test 2.55 K/ L 1.18-3.74 spff=433) MONOCYTES ABSOLUTE COUNT (BEAKER) (test 0.50 K/ L 0.24-0.36 waud=744) EOSINOPHILS ABSOLUTE COUNT (BEAKER) (test 0.13 K/ L 0.04-0.36 qjtn=719) BASOPHILS ABSOLUTE COUNT (BEAKER) (test 0.03 K/ L 0.01-0.08 lvph=076) IMMATURE GRANULOCYTES-RELATIVE PERCENT (BEAKER) 0 % 0-1 (test gzhk=6228) HEMOGLOBIN [id number] 13:15:00 Test Item Value Reference Range Comments HEMOGLOBIN A1C (BEAKER) (test pimm=199) 5.6 % 4.3-6.1 BASIC METABOLIC [id number] 05:44:00 Test Item Value Reference Range Comments SODIUM (BEAKER) (test 137 meq/L 136-145 ilkz=789) POTASSIUM (BEAKER) (test 4.0 meq/L 3.5-5.1 vfnw=300) CHLORIDE (BEAKER) (test 105 meq/L 98-107 ibaa=143) CO2 (BEAKER) (test 25 meq/L 22-29 sxtn=427) BLOOD UREA NITROGEN 11 mg/dL 7-21 (BEAKER) (test greu=848) CREATININE (BEAKER) (test 0.64 mg/dL 0.57-1.25 zomd=557) GLUCOSE RANDOM (BEAKER) 94 mg/dL 70-105 (test skoe=818) CALCIUM (BEAKER) (test 9.3 mg/dL 8.4-10.2 wmws=274) EGFR (BEAKER) (test 108 mL/min/1.73 sq m ESTIMATED GFR IS NOT zija=2546) ACCURATE CREATININE CLEARANCE IN PREDICTING GLOMERULAR FILTRATION RATE. ESTIMATED GFR IS NOT APPLICABLE FOR DIALYSIS PATIENTS. [id number] 05:16:00 Test Item Value Reference Range Comments PROTIME (BEAKER) (test sgjp=567) 14.5 seconds 11.9-14.2 INR (BEAKER) (test acnx=480) 1.2 <=5.9 PARTIAL THROMBOPLASTIN TIME (BEAKER) (test 32.6 seconds 22.5-36.0 scqa=303) Effective 02/10/2019: PT Reference Range ChangeNew: 11.9-14.2 Previous: 11.7- 14.7RECOMMENDED COUMADIN/WARFARIN INR THERAPY RANGESSTANDARD DOSE: 2.0-3.0 Includes: PROPHYLAXIS for venous thrombosis, systemic embolization; TREATMENT for venous thrombosis and/or pulmonary embolus.HIGH RISK: Target INR is2.5-3.5 for patients wiht mechanical heart valves.CBC W/PLT COUNT & AUTO [id number] 05:13:00 Test Item Value Reference Range Comments WHITE BLOOD CELL COUNT (BEAKER) (test redm=143) 9.2 K/ L 3.5-10.5 RED BLOOD CELL COUNT (BEAKER) (test sysw=349) 4.06 M/ L 3.93-5.22 HEMOGLOBIN (BEAKER) (test zmzi=279) 12.4 GM/DL 11.2-15.7 HEMATOCRIT (BEAKER) (test rafl=908) 35.9 % 34.1-44.9 MEAN CORPUSCULAR VOLUME (BEAKER) (test hcxi=615) 88.4 fL 79.4-94.8 MEAN CORPUSCULAR HEMOGLOBIN (BEAKER) (test 30.5 pg 25.6-32.2 txoj=674) MEAN CORPUSCULAR HEMOGLOBIN CONC (BEAKER) (test 34.5 GM/DL 32.2-35.5 hcag=835) RED CELL DISTRIBUTION WIDTH (BEAKER) (test 11.8 % 11.7-14.4 rzem=393) PLATELET COUNT (BEAKER) (test aadp=039) 254 K/CU MM 150-450 MEAN PLATELET VOLUME (BEAKER) (test rjot=570) 10.2 fL 9.4-12.3 NUCLEATED RED BLOOD CELLS (BEAKER) (test 0 /100 WBC 0-0 hmcy=827) NEUTROPHILS RELATIVE PERCENT (BEAKER) (test 59 % cfrc=118) LYMPHOCYTES RELATIVE PERCENT (BEAKER) (test 31 % xlql=322) MONOCYTES RELATIVE PERCENT (BEAKER) (test 8 % jfrl=427) EOSINOPHILS RELATIVE PERCENT (BEAKER) (test 1 % dssu=230) BASOPHILS RELATIVE PERCENT (BEAKER) (test 1 % dtsi=279) NEUTROPHILS ABSOLUTE COUNT (BEAKER) (test 5.43 K/ L 1.56-6.13 vkjs=859) LYMPHOCYTES ABSOLUTE COUNT (BEAKER) (test 2.84 K/ L 1.18-3.74 tema=798) MONOCYTES ABSOLUTE COUNT (BEAKER) (test 0.76 K/ L 0.24-0.36 vusk=880) EOSINOPHILS ABSOLUTE COUNT (BEAKER) (test 0.07 K/ L 0.04-0.36 yaxd=501) BASOPHILS ABSOLUTE COUNT (BEAKER) (test 0.06 K/ L 0.01-0.08 wgfc=491) IMMATURE GRANULOCYTES-RELATIVE PERCENT (BEAKER) 0 % 0-1 (test nyer=3350) SCREEN, [id number] 20:10:00 Test Item Value Reference Range Comments TEST URINE (BEAKER) (test pvdg=535) Negative BASIC METABOLIC [id number] 18:39:00 Test Item Value Reference Range Comments SODIUM (BEAKER) (test 138 meq/L 136-145 ypmn=816) POTASSIUM (BEAKER) (test 3.7 meq/L 3.5-5.1 ybvh=982) CHLORIDE (BEAKER) (test 101 meq/L 98-107 zwmd=431) CO2 (BEAKER) (test 29 meq/L 22-29 gjbd=018) BLOOD UREA NITROGEN 10 mg/dL 7-21 (BEAKER) (test vykl=123) CREATININE (BEAKER) (test 0.74 mg/dL 0.57-1.25 qqce=899) GLUCOSE RANDOM (BEAKER) 139 mg/dL 70-105 (test pyah=912) CALCIUM (BEAKER) (test 9.4 mg/dL 8.4-10.2 ncgb=969) EGFR (BEAKER) (test 92 mL/min/1.73 sq m ESTIMATED GFR IS NOT bfvk=0073) ACCURATE CREATININE CLEARANCE IN PREDICTING GLOMERULAR FILTRATION RATE. ESTIMATED GFR IS NOT APPLICABLE FOR DIALYSIS PATIENTS.
[2019-08-20] MEDS ORDERED: IBUPROFEN 100 MG/5 ML UCUP ONE (18:02)
[2019-08-20] MEDS ORDERED: HYDROCODONE/CHLORPHEN 5 ML/OSYR ONE (18:14)
[2019-08-20 18:29] LABS: Urine Culture Reflex Order NOT NEEDED
[2019-08-20 18:34] LABS: Urine Bacteria 20-50 /HPF (<20); Urine Mucus 2+ /HPF (NONE SEEN); Urine RBC <5 /HPF (NONE SEEN)
[2019-08-20 18:34] LABS: Urine Blood TRACE (NEG); Urine Glucose NEGATIVE (NEG); Urine Protein 1+ (NEG); Urine Specific Gravity 1.025 (1.005-1.030)
--- NOTE | 2019-08-20 19:10 | RAD REPORT ---
EXAM DESCRIPTION: RAD - Chest Pa And Lat (2 Views) - 08/20/2019 6:22 pm CLINICAL HISTORY: Chest pain;Cough COMPARISON: March 2018 TECHNIQUE: PA and lateral views of the chest were obtained. FINDINGS: The lungs are underinflated. Interstitial markings are not substantially different from co mparison. Markings are more pronounced retrocardiac left base matching the 2018 study. Heart size i s normal and central vasculature is within normal limits. No pleural effusion or pneumothorax seen. No acute bony finding noted. No aortic abnormality. IMPRESSION: No acute cardiopulmonary process.
--- NOTE | 2019-08-20 19:12 | ER ---
Nurse's Notes [facility] Name: Zehra Carrillo Age: 33 yrs Sex: Female : 1985 Arrival Date: 08/20/2019 Time: 17:03 Bed 28 Private MD: Go Evangelista E Diagnosis: Fever presenting with conditions classified elsewhere;Urinary tract infection, site not specified Presentation: 08/20 17:13 Presenting complaint: Patient states: Pt states pain in chest, weakness, ear pain, dm5 throat pain and lightheadedness that started last night. Highest temp recorded at home 102. Pt states the last time they took medication was 0900, Mucinex, Tylenol. Presenting complaint: Patient states: hurts to [facility]. Transition of care: patient was not received from another setting of care. Onset of symptoms was August 19, 2019. Risk Assessment: Do you want to hurt yourself or someone else? Patient reports no desire to harm self or others. Initial Sepsis Screen: Does the patient meet any 2 criteria? HR > 90 bpm. No. Patient's initial sepsis screen is negative. Does the patient have a suspected source of infection? No. Patient's initial sepsis screen is negative. Note gastric sleeve and hiatal hernia repair, 3 weeks ago. Care prior to arrival: None. 17:13 Method Of Arrival: Ambulatory dm5 17:13 Acuity: FRANCISCO 4 dm5 Triage Assessment: 17:25 General: Appears in no apparent distress. uncomfortable, Behavior is calm, cooperative. dm5 Pain: Complains of pain in throat Pain currently is 8 out of 10 on a pain scale. Pain began last night Aggravated by swallowing. Neuro: Level of Consciousness is awake, alert, obeys commands, Oriented to person, place, time. Respiratory: Reports cough that is non-productive. Derm: Skin is pink, warm \T\ dry. NIGHT NURSE: 17:13 abnormal mentstrual cycle dm5 Historical: - Allergies: 19:36 No Known Allergies; ss - Immunization history:: Adult Immunizations up to date. - Social history:: Smoking status: Patient/guardian denies using tobacco. - Ebola Screening: : Patient denies exposure to infectious person Patient denies travel to an Ebola-affected area in the 21 days before illness onset. Screenin:09 Abuse screen: Denies threats or abuse. Denies injuries from another. Nutritional dm5 screening: No deficits noted. Tuberculosis screening: No symptoms or risk factors identified. Fall Risk None identified. Assessment: 18:09 Reassessment: urine sent to lab. dm5 18:09 General: Appears uncomfortable. Neuro: Level of Consciousness is awake, alert, obeys dm5 commands. Respiratory: Reports cough that is. Derm: Skin is pink, warm \T\ dry. 19:34 Reassessment: discharge pending shot time. ss Vital Signs: 17:13 BP 98 / 55; Pulse 95; Resp 20; Temp 99; Pulse Ox 99% on R/A; Weight 97.52 kg (R); dm5 Height 5 ft. 6 in. (167.64 cm); 19:34 BP 116 / 72; Pulse 76; Resp 15; Temp 98.6(O); Pulse Ox 98% on R/A; ss 17:13 Body Mass Index 34.70 (97.52 kg, 167.64 cm) dm5 ED Course: 17:03 Patient arrived in ED. mr 17:03 Go Evangelista MD is Private Physician. mr 17:12 Darcie Zuluaga FNP-C is [facility]. snw 17:12 Nicolas Delgado MD is Attending Physician. snw 17:17 Triage completed. dm5 17:25 Arm band placed on right wrist. Patient placed in an exam room. dm5 17:27 flu and strep sent to lab. dm5 17:55 Naima Rivera, RICARDO is Primary Nurse. dm5 17:55 Throat Culture Sent. dm5 18:09 Patient has correct armband on for positive identification. dm5 18:19 Chest Pa And Lat (2 Views) XRAY In Process Unspecified. EDMS 19:04 Daphne Hernandez, RICARDO is Primary Nurse. ss 19:11 Go Evangelista MD is Referral Physician. snw 19:35 No provider procedures requiring assistance completed. Patient did not have IV access ss during this emergency room visit. Administered Medications: 07:18 Drug: Rocephin (cefTRIAXone) 1 grams Route: IM; Site: left gluteus; ss 19:53 Follow up: Response: No adverse reaction ss 18:00 Drug: Motrin Suspension 400 mg Route: PO; sg 18:55 Follow up: Response: No adverse reaction sg 18:33 Drug: Tussionex Pennkinetic ER 5 ml Route: PO; sg 18:54 Follow up: Response: No adverse reaction Outcome: 19:11 Discharge ordered by . snw 19:35 Discharge instructions given to patient, family, Instructed on discharge instructions, ss follow up and referral plans. medication usage, Demonstrated understanding of instructions, follow-up care, medications, Prescriptions given X 2. 19:52 Discharged to home ambulatory. ss 19:52 Condition: good 19:53 Patient left the ED. ss Addendum: 08/23/2019 12:52 Addendum: Culture Results: Positive urine culture. No further action required. Bacteria b d sensitive to prescribed antibiotic. Signatures: Dispatcher [employer] EDMS Suzanne Powell Deana, RN RN dm5 Obdulio Lancaster RN RN sg Darcie Zuluaga, ORTHOPEDIC RADIOLOGIC TECHNOLOGIST-C ORTHOPEDIC RADIOLOGIC TECHNOLOGIST-Csnw Zoya Fernandez Shelby, RN RN
--- NOTE | 2019-08-20 19:13 | EDPHYS ---
Physician Documentation [facility] Name: Zehra Carrillo Age: 33 yrs Sex: Female : 1985 Arrival Date: 08/20/2019 Time: 17:03 Bed 28 Private MD: Go Evangelista E ED Physician Nicolas Delgado HPI: 08/20 20:36 This 33 yrs old Female presents to ER via Ambulatory with complaints of Flu snw Symptoms. 20:36 Onset: The symptoms/episode began/occurred suddenly, this morning. Associated signs and snw symptoms: Pertinent positives: cough, fever, bodyaches. Modifying factors: The patient symptoms are alleviated by nothing. It is unknown whether or not the patient has had similar symptoms in the past. 3 months ago pt had gastric bypass, yest pt had cryotherapy to cervix yest. SLEEVER: 17:13 abnormal mentstrual cycle dm5 Historical: - Allergies: 19:36 No Known Allergies; ss - Immunization history:: Adult Immunizations up to date. - Social history:: Smoking status: Patient/guardian denies using tobacco. - Ebola Screening: : Patient denies exposure to infectious person Patient denies travel to an Ebola-affected area in the 21 days before illness onset. ROS: 20:34 Eyes: Negative for injury, pain, redness, and discharge, ENT: Negative for injury, snw pain, and discharge, Neck: Negative for injury, pain, and swelling, Cardiovascular: Negative for chest pain, palpitations, and edema. 20:34 Respiratory: Negative for shortness of breath, cough, wheezing, and pleuritic chest pain, Abdomen/GI: Negative for abdominal pain, nausea, vomiting, diarrhea, and constipation, Back: Negative for injury and pain, : Negative for injury, bleeding, discharge, and swelling, MS/Extremity: Negative for injury and deformity, Skin: Negative for injury, rash, and discoloration, Neuro: Negative for headache, weakness, numbness, tingling, and seizure. 20:34 Constitutional: Positive for body aches, chills, fatigue, fever, malaise, poor PO intake. 20:34 Respiratory: Positive for cough. Exam: 20:34 Head/Face: Normocephalic, atraumatic. Eyes: Pupils equal round and reactive to light, snw extra-ocular motions intact. Lids and lashes normal. Conjunctiva and sclera are non-icteric and not injected. Cornea within normal limits. Periorbital areas with no swelling, redness, or edema. ENT: Nares patent. No nasal discharge, no septal abnormalities noted. Tympanic membranes are normal and external auditory canals are clear. Oropharynx with no redness, swelling, or masses, exudates, or evidence of obstruction, uvula midline. Mucous membranes moist. Neck: Trachea midline, no thyromegaly or masses palpated, and no cervical lymphadenopathy. Supple, full range of motion without nuchal rigidity, or vertebral point tenderness. No Meningismus. Chest/axilla: Normal chest wall appearance and motion. Nontender with no deformity. No lesions are appreciated. Cardiovascular: Regular rate and rhythm with a normal S1 and S2. No gallops, murmurs, or rubs. Normal PMI, no JVD. No pulse deficits. Respiratory: Lungs have equal breath sounds bilaterally, clear to auscultation and percussion. No rales, rhonchi or wheezes noted. No increased work of breathing, no retractions or nasal flaring. Back: No spinal tenderness. No costovertebral tenderness. Full range of motion. 20:34 Skin: Warm, dry with normal turgor. Normal color with no rashes, no lesions, and no evidence of cellulitis. MS/ Extremity: Pulses equal, no cyanosis. Neurovascular intact. Full, normal range of motion. Neuro: Awake and alert, GCS 15, oriented to person, place, time, and situation. Cranial nerves II-XII grossly intact. Motor strength 5/5 in all extremities. Sensory grossly intact. Cerebellar exam normal. Normal gait. 20:34 Constitutional: The patient appears alert, awake, uncomfortable. 20:34 Abdomen/GI: Inspection: abdomen appears normal, Bowel sounds: normal, Palpation: abdomen is soft and non-tender. Vital Signs: 17:13 BP 98 / 55; Pulse 95; Resp 20; Temp 99; Pulse Ox 99% on R/A; Weight 97.52 kg (R); dm5 Height 5 ft. 6 in. (167.64 cm); 19:34 BP 116 / 72; Pulse 76; Resp 15; Temp 98.6(O); Pulse Ox 98% on R/A; ss 17:13 Body Mass Index 34.70 (97.52 kg, 167.64 cm) dm5 MDM: 17:21 Patient medically screened. snw 20:35 Data reviewed: vital signs, nurses notes. Data interpreted: Pulse oximetry: on room air snw is 98 %. Interpretation: normal. Counseling: I had a detailed discussion with the patient and/or guardian regarding: the historical points, exam findings, and any diagnostic results supporting the discharge/admit diagnosis, lab results, radiology results, the need for outpatient follow up, to return to the emergency department if symptoms worsen or persist or if there are any questions or concerns that arise at home. Special discussion: Based on the history and exam findings, there is no indication for further emergent testing or inpatient evaluation. I discussed with the patient/guardian the need to see the primary care provider for further evaluation of the symptoms. 08/20 17:12 Order name: Flu; Complete Time: 17:54 snw 08/20 17:12 Order name: Strep; Complete Time: 17:44 snw 08/20 17:41 Order name: Throat Culture EDMS 08/20 17:47 Order name: Urine Microscopic Only; Complete Time: 18:39 snw 08/20 17:47 Order name: Urine Culture snw 08/20 18:28 Order name: Urine Dipstick--Ancillary (enter results); Complete Time: 18:39 eb 08/20 17:51 Order name: Chest Pa And Lat (2 Views) XRAY; Complete Time: 19:18 snw 08/20 18:28 Order name: Urine --Ancillary (enter results); Complete Time: 18:39 eb 08/20 19:10 Order name: VS Recheck; Complete Time: 19:25 snw Administered Medications: 07:18 Drug: Rocephin (cefTRIAXone) 1 grams Route: IM; Site: left gluteus; ss 19:53 Follow up: Response: No adverse reaction ss 18:00 Drug: Motrin Suspension 400 mg Route: PO; sg 18:55 Follow up: Response: No adverse reaction sg 18:33 Drug: Tussionex Pennkinetic ER 5 ml Route: PO; sg 18:54 Follow up: Response: No adverse reaction sg Disposition: 08/21 07:25 Co-signature as Attending Physician, Nicolas Delgado MD I agree with the assessment and kdr plan of care. Disposition: 08/20/19 19:11 Discharged to Home. Impression: Fever presenting with conditions classified elsewhere, Urinary tract infection, site not specified. - Condition is Stable. - Discharge Instructions: Urinary Tract Infection, Adult, Rehydration, Adult. - Prescriptions for acetaminophen- codeine 120-12 mg/5 mL Oral Suspension - take 10 milliliters by ORAL route every 6 hours As needed; 180 milliliter. Augmentin ES- 600 600-42.9 mg/5 mL Oral Suspension for Reconstitution - take 7.2 milliliter by ORAL route every 12 hours for 10 days Max = 875mg/dose; 150 milliliter. - Work release form, Medication Reconciliation Form, Thank You Letter, Antibiotic Education, Prescription Opioid Use form. - Follow up: Go Evangelista MD; When: 2 - 3 days; Reason: Recheck today's complaints, Continuance of care, Re-evaluation by your physician. Follow up: Emergency Department; When: As needed; Reason: Worsening of condition. Signatures: Dispatcher [employer] EDMS Obdulio Lancaster, RN RN Nicolas Delgado MD MD [facility] Darcie Zuluaga, UI ARCHITECT-C UI ARCHITECT-Csnw Daphne Hernandez RN RN ss Corrections: (The following items were deleted from the chart) 08/20 19:53 19:11 08/20/2019 19:11 Discharged to Home. Impression: Fever presenting with conditions ss classified elsewhere; Urinary tract infection, site not specified. Condition is Stable. Forms are Medication Reconciliation Form, Thank You Letter, Antibiotic Education, Prescription Opioid Use. Follow up: Go Evangelista; When: 2 - 3 days; Reason: Recheck today's complaints, Continuance of care, Re-evaluation by your physician. Follow up: Emergency Department; When: As needed; Reason: Worsening of condition. snw
[2019-08-20] MEDS ORDERED: WATER FOR INJ,STERILE 10 ML ONE (19:16)
[2019-08-20] MEDS ORDERED: CEFTRIAXONE 1000 MG/VIAL ONE (19:16)
[2019-08-20 21:12] VITALS: BP 116/72; TEMP 98.6; O2SAT 98
== END 2019-08-20 19:53 | disposition home or self-care (01) ==
LOC: ER 17:01
DX: N39.0 Urinary tract infection, site not specified (principal)
CPT/HCPCS: 71046; 81003; 81015; 81025; 87070; 87077; 87081; 87086; 87088; 87186; 87804; 96372; 99284

== ENCOUNTER 2020-03-12 21:56 | Emergency (ER) | payer OTHER ==
--- OUTSIDE RECORDS SUMMARY | 2020-03-12 21:59 | XMS REPORT | Clinical Summary ---
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
--- OUTSIDE RECORDS SUMMARY | 2020-03-12 22:00 | XMS REPORT | Clinical Summary ---
:1985 Author Organization [facility] Address [address] [place] [id number] Care Team Providers Name Role Phone Go Evangelista MD Primary Care Provider [phone] Allergies No Known Allergies Medications Medication Sig Dispensed Refills Start Date End Date Status dextroamphetamine/amp Take by mouth. 0 Active hetamine (ADDERALL ORAL) ibuprofen Take 1 tablet 30 tablet 0 03/04/2019 03/19/2019 Expi red (ADVIL,MOTRIN) 400 MG (400 mg total) tablet by mouth every 8 (eight) hours as needed for Pain for up to 15 days. 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 Obesity 03/01/2019 Right otitis media 03/01/2019 Mastoiditis 03/01/2019 Encounters Date Type Specialty Care Team Description 07/10/2019 Refill Internal Medicine Emma Moe MD after 03/12/2019 Family History Medical History Relation Name Comments Diabetes Father Hyperlipidemia Father Hypertension Father Cancer Mother Diabetes Mother Hypertension Mother Relation Name Status Comments Father Mother Social History Tobacco Use Types Packs/Day Years Used Date Never Smoker Smokeless Tobacco: Never Used Sex Assigned at Date Recorded Not on file Job Start Date Occupation Industry Not on file Not on file Not on file Travel History Travel Start Travel End No recent travel history available. Last Filed Vital Signs Not on file Plan of Treatment Not on file Results Not on fileafter 03/12/2019 Insurance Payer Benefit Plan / Group Subscriber ID Type Phone A ddress C[employer] - [employer]GD CARE CIGNA HMO/POS/OPEN ACCESS xxxxxxxxxxx HMO/POS Advance Directives For more information, please contact:[place] [address] [place], [place] [phone] Code Status Date Activated Date Inactivated Comments Full Code 03/01/2019 5:42 PM 03/04/2019 4:58 PM This code status was determined by: Patient
--- OUTSIDE RECORDS SUMMARY | 2020-03-12 22:01 | XMS REPORT | Continuity of Care Document ---
:[address] [facility] t Address [address] [place] [address] Care Team Providers Name Role Phone Palma Evangelista MD Primary Care Physician Abhi MIDDLETON, Anthony Attending Clinician NERIS Attending Clinician Unavailable NERIS Admitting Clinician Unavailable Payers Payer Name Policy Type Policy Number Effective Date Expiration Date S aleshia CIGNA [facility] ACCESSxxxxxxxxx xxHMO/POS Problems Condition Condition Condition Status Onset Resolution Last Treating Co mments Source Name Details Category Date Date Treatment Clinician Date Right Right Disease Active [facility] externa [facility]: Medical 00 [place] Obesity Obesity Disease Active 2019-[address] [facility] - 00[facility]: [facility] 00 [place] Right Right Disease Active 2019-[address] [facility] otitis otitis 6-17 [facility] - media media 00:00: Medical 00 [place] Mastoiditi Mastoiditi Disease Active 2019-[address] s s 6-17 [facility] - 00:00: Medical 00 [place] Allergies, Adverse Reactions, Alerts This patient has no known allergies or adverse reactions. Family History Family Member Diagnosis Comments Start Date Stop Date Source Natural father Diabetes [facility] Natural father Hyperlipidemia [facility] Natural father Hypertension [facility] Natural mother Cancer [facility] Natural mother Diabetes [facility] Natural mother Hypertension [facility] Social History Social Habit Start Date Stop Date Quantity Comments Source ASSERTION 2017-01-28 Ry Method ist 00:00:[address] [facility] Alcohol intake 2017-05-08 2017-05-08 Current [facility]ist 00:00:00 00:00:00 non-drinker of alcohol (finding) Smoking Status Start Date Stop Date Source Never smoker [facility] Medications Ordered Filled Start Stop Current Ordering Indication Dosage Frequency Signature Comments Components Source Medication Medication Date Date Medication? Clinician (SIG) Name Name ibuprofen 2019- No 400mg Take 1 [facility] (ADVIL,MOTR 6-20 07-05 tablet [facility] - IN) 400 MG 00:00: 23:59 (400 mg Med ical tablet 00 :00 total) by Center mouth every 8 (eight) hours as needed for Pain for up to 15 days. dextroamphe Yes Take by [facility] tamine/amph 6-17 mouth. [facility] - etamine 17:33: Medical (ADDERALL 42 Center ORAL) Procedures This patient has no known procedures. Plan of Care Planned Activity Planned Date Details Comments Source Future Scheduled 2020-04-15 INFLUENZA VACCINE [facility] 00:00:00 [code = INFLUENZA VACCINE] Future Scheduled [facility] malignant neoplasm of cervix (procedure) [code = 328820463] Results Test Description Test Time Test Comments Results Result Comments Source BLOOD CULTURE 2019-03-07 09:55:00 Test Item Value Reference Range Interpretation Comme nts CULTURE (BEAKER) (test code = 1095) No growth in 5 days BLOOD [id number] 20:01:00 Test Item Value Reference Range Interpretation Comments CULTURE (BEAKER) (test No growth in 5 days code = 1095) EAR CULTURE + GRAM [id number] 10:54:00 Test Item Value Reference Range Interpretation Comments CULTURE (BEAKER) (test PSEUDOMONAS A 4+ Ps eudomonas code = 1095) AERUGINOSA aeruginosa Amikacin (test code = Susceptible 0-16 S 1) , Resistant <0 or >16 Aztreonam (test code = Susceptible 0-8 S 32) , Resistant <0 or >8 Cefepime (test code = Susceptible 0-8 S 51) , Resistant <0 or >8 Ceftazidime (test code Susceptible 0-8 S = 27) , Resistant <0 or >8 Ciprofloxacin (test Susceptible S code = 7) 0-0.5 , Resistant <0 or >.5 Gentamicin (test code Susceptible 0-4 S = 18) , Resistant <0 or >4 Imipenem (test code = Susceptible 0-2 S 19) , Resistant <0 or >2 Levofloxacin (test Susceptible 0-1 S code = 22) , Resistant <0 or >1 Meropenem (test code = Susceptible 0-2 S 34) , Resistant <0 or >2 Piperacillin (test Susceptible 0-16 S code = 24) , Resistant <0 or >16 Piperacillin + Susceptible 0-16 S Tazobactam (test code , Resistant <0 = 29) or >16 Tobramycin (test code Susceptible 0-4 S = 25) , Resistant <0 or >4 CULTURE (BEAKER) (test KLEBSIELLA A 1+ Kl ebsiella code = 1095) PNEUMONIAE SSP pneumoniae ss p PNEUMONIAE pneumoniae Amikacin (test code = S 1) Ampicillin + Sulbactam R (test code = 6) Aztreonam (test code = S 32) Cefepime (test code = S 51) Cefoxitin (test code = S 68) Ceftazidime (test code S = 27) Ceftriaxone (test code S = 52) Ertapenem (test code = S 38) Gentamicin (test code S = 18) Levofloxacin (test S code = 22) Meropenem (test code = S 34) Nitrofurantoin (test I code = 23) Piperacillin + S Tazobactam (test code = 29) Tetracycline (test S code = 2) Tobramycin (test code S = 25) Trimethoprim + S Sulfamethoxazole (test code = 47) GRAM STAIN RESULT <1+ WBCs (BEAKER) (test code = 1123) GRAM STAIN RESULT 1+ gram variable (BEAKER) (test code = rods 408173) GRAM STAIN RESULT <1+ gram (BEAKER) (test code = positive cocci 719133) in pairs BASIC METABOLIC [id number] 06:46:00 Test Item Value Reference Range Interpretation Comments SODIUM (BEAKER) 137 meq/L 136-145 (test code = 381) POTASSIUM (BEAKER) 4.1 meq/L 3.5-5.1 (test code = 379) CHLORIDE (BEAKER) 106 meq/L 98-107 (test code = 382) CO2 (BEAKER) (test 23 meq/L 22-29 code = 355) BLOOD UREA NITROGEN 9 mg/dL 7-21 (BEAKER) (test code = 354) CREATININE (BEAKER) 0.63 mg/dL 0.57-1.25 (test code = 358) GLUCOSE RANDOM 93 mg/dL 70-105 (BEAKER) (test code = 652) CALCIUM (BEAKER) 9.0 mg/dL 8.4-10.2 (test code = 697) EGFR (BEAKER) (test 110 mL/min/1.73 ESTIM ATED GFR IS code = 1092) sq m NOT ACCURATE CREATININE CLEARANCE IN PREDICTING GLOMERULAR FILTRATION RATE . ESTIMATED GFR I S NOT APPLICABLE FOR DIALYSIS PATIEN TS. CBC W/PLT COUNT & AUTO [id number] 06:02:00 Test Item Value Reference Range Interpretation Comments WHITE BLOOD CELL COUNT (BEAKER) 7.2 K/ L 3.5-10.5 (test code = 775) RED BLOOD CELL COUNT (BEAKER) 4.11 M/ L 3.93-5.22 (test code = 761) HEMOGLOBIN (BEAKER) (test code = 12.3 GM/DL 11.2-15.7 410) HEMATOCRIT (BEAKER) (test code = 36.6 % 34.1-44.9 411) MEAN CORPUSCULAR VOLUME (BEAKER) 89.1 fL 79.4-94.8 (test code = 753) MEAN CORPUSCULAR HEMOGLOBIN 29.9 pg 25.6-32.2 (BEAKER) (test code = 751) MEAN CORPUSCULAR HEMOGLOBIN CONC 33.6 GM/DL 32.2-35.5 (BEAKER) (test code = 752) RED CELL DISTRIBUTION WIDTH 11.7 % 11.7-14.4 (BEAKER) (test code = 412) PLATELET COUNT (BEAKER) (test 279 K/CU MM 150-450 code = 756) MEAN PLATELET VOLUME (BEAKER) 10.1 fL 9.4-12.3 (test code = 754) NUCLEATED RED BLOOD CELLS 0 /100 WBC 0-0 (BEAKER) (test code = 413) NEUTROPHILS RELATIVE PERCENT 59 % (BEAKER) (test code = 429) LYMPHOCYTES RELATIVE PERCENT 31 % (BEAKER) (test code = 430) MONOCYTES RELATIVE PERCENT 7 % (BEAKER) (test code = 431) EOSINOPHILS RELATIVE PERCENT 3 % (BEAKER) (test code = 432) BASOPHILS RELATIVE PERCENT 1 % (BEAKER) (test code = 437) NEUTROPHILS ABSOLUTE COUNT 4.23 K/ L 1.56-6.13 (BEAKER) (test code = 670) LYMPHOCYTES ABSOLUTE COUNT 2.22 K/ L 1.18-3.74 (BEAKER) (test code = 414) MONOCYTES ABSOLUTE COUNT (BEAKER) 0.48 K/ L 0.24-0.36 H (test code = 415) EOSINOPHILS ABSOLUTE COUNT 0.18 K/ L 0.04-0.36 (BEAKER) (test code = 416) BASOPHILS ABSOLUTE COUNT (BEAKER) 0.05 K/ L 0.01-0.08 (test code = 417) IMMATURE GRANULOCYTES-RELATIVE 1 % 0-1 PERCENT (BEAKER) (test code = 2801) URINALYSIS W/ REFLEX URINE [id number] 14:41:00 Test Item Value Reference Range Interpretation Comments COLOR (BEAKER) (test code = 470) Yellow CLARITY (BEAKER) (test code = 469) Clear SPECIFIC GRAVITY UA (BEAKER) (test 1.015 1.001-1.035 code = 468) PH UA (BEAKER) (test code = 467) 7.0 5.0-8.0 PROTEIN UA (BEAKER) (test code = Negative Negative 464) GLUCOSE UA (BEAKER) (test code = Negative Negative 365) KETONES UA (BEAKER) (test code = Negative Negative 371) BILIRUBIN UA (BEAKER) (test code = Negative Negative 462) BLOOD UA (BEAKER) (test code = Moderate Negative A 461) NITRITE UA (BEAKER) (test code = Negative Negative 465) LEUKOCYTE ESTERASE UA (BEAKER) Moderate Negative A (test code = 466) UROBILINOGEN UA (BEAKER) (test 0.2 mg/dL 0.2-1.0 code = 463) RBC UA (BEAKER) (test code = 519) 50 /HPF WBC UA (BEAKER) (test code = 520) 18 /HPF MUCUS (BEAKER) (test code = 1574) Occasional SQUAMOUS EPITHELIAL (BEAKER) (test 3 /HPF code = 516) SOURCE(BEAKER) (test code = 2795) BASIC METABOLIC [id number] 05:45:00 Test Item Value Reference Range Interpretation Comments SODIUM (BEAKER) 135 meq/L 136-145 L (test code = 381) POTASSIUM (BEAKER) 4.0 meq/L 3.5-5.1 (test code = 379) CHLORIDE (BEAKER) 104 meq/L 98-107 (test code = 382) CO2 (BEAKER) (test 24 meq/L 22-29 code = 355) BLOOD UREA NITROGEN 10 mg/dL 7-21 (BEAKER) (test code = 354) CREATININE (BEAKER) 0.62 mg/dL 0.57-1.25 (test code = 358) GLUCOSE RANDOM 95 mg/dL 70-105 (BEAKER) (test code = 652) CALCIUM (BEAKER) 9.1 mg/dL 8.4-10.2 (test code = 697) EGFR (BEAKER) (test 112 mL/min/1.73 ESTIM ATED GFR IS code = 1092) sq m NOT ACCURATE CREATININE CLEARANCE IN PREDICTING GLOMERULAR FILTRATION RATE . ESTIMATED GFR I S NOT APPLICABLE FOR DIALYSIS PATIEN TS. CBC W/PLT COUNT & AUTO [id number] 05:11:00 Test Item Value Reference Range Interpretation Comments WHITE BLOOD CELL COUNT (BEAKER) 7.0 K/ L 3.5-10.5 (test code = 775) RED BLOOD CELL COUNT (BEAKER) 4.23 M/ L 3.93-5.22 (test code = 761) HEMOGLOBIN (BEAKER) (test code = 12.8 GM/DL 11.2-15.7 410) HEMATOCRIT (BEAKER) (test code = 37.4 % 34.1-44.9 411) MEAN CORPUSCULAR VOLUME (BEAKER) 88.4 fL 79.4-94.8 (test code = 753) MEAN CORPUSCULAR HEMOGLOBIN 30.3 pg 25.6-32.2 (BEAKER) (test code = 751) MEAN CORPUSCULAR HEMOGLOBIN CONC 34.2 GM/DL 32.2-35.5 (BEAKER) (test code = 752) RED CELL DISTRIBUTION WIDTH 11.8 % 11.7-14.4 (BEAKER) (test code = 412) PLATELET COUNT (BEAKER) (test 262 K/CU MM 150-450 code = 756) MEAN PLATELET VOLUME (BEAKER) 9.8 fL 9.4-12.3 (test code = 754) NUCLEATED RED BLOOD CELLS 0 /100 WBC 0-0 (BEAKER) (test code = 413) NEUTROPHILS RELATIVE PERCENT 54 % (BEAKER) (test code = 429) LYMPHOCYTES RELATIVE PERCENT 36 % (BEAKER) (test code = 430) MONOCYTES RELATIVE PERCENT 7 % (BEAKER) (test code = 431) EOSINOPHILS RELATIVE PERCENT 2 % (BEAKER) (test code = 432) BASOPHILS RELATIVE PERCENT 0 % (BEAKER) (test code = 437) NEUTROPHILS ABSOLUTE COUNT 3.80 K/ L 1.56-6.13 (BEAKER) (test code = 670) LYMPHOCYTES ABSOLUTE COUNT 2.55 K/ L 1.18-3.74 (BEAKER) (test code = 414) MONOCYTES ABSOLUTE COUNT (BEAKER) 0.50 K/ L 0.24-0.36 H (test code = 415) EOSINOPHILS ABSOLUTE COUNT 0.13 K/ L 0.04-0.36 (BEAKER) (test code = 416) BASOPHILS ABSOLUTE COUNT (BEAKER) 0.03 K/ L 0.01-0.08 (test code = 417) IMMATURE GRANULOCYTES-RELATIVE 0 % 0-1 PERCENT (BEAKER) (test code = 2801) HEMOGLOBIN [id number] 13:15:00 Test Item Value Reference Range Interpretation Comments HEMOGLOBIN A1C (BEAKER) (test code = 5.6 % 4.3-6.1 368) BASIC METABOLIC [id number] 05:44:00 Test Item Value Reference Range Interpretation Comments SODIUM (BEAKER) 137 meq/L 136-145 (test code = 381) POTASSIUM (BEAKER) 4.0 meq/L 3.5-5.1 (test code = 379) CHLORIDE (BEAKER) 105 meq/L 98-107 (test code = 382) CO2 (BEAKER) (test 25 meq/L 22-29 code = 355) BLOOD UREA NITROGEN 11 mg/dL 7-21 (BEAKER) (test code = 354) CREATININE (BEAKER) 0.64 mg/dL 0.57-1.25 (test code = 358) GLUCOSE RANDOM 94 mg/dL 70-105 (BEAKER) (test code = 652) CALCIUM (BEAKER) 9.3 mg/dL 8.4-10.2 (test code = 697) EGFR (BEAKER) (test 108 mL/min/1.73 ESTIM ATED GFR IS code = 1092) sq m NOT ACCURATE CREATININE CLEARANCE IN PREDICTING GLOMERULAR FILTRATION RATE . ESTIMATED GFR I S NOT APPLICABLE FOR DIALYSIS PATIEN TS. [id number] 05:16:00 Test Item Value Reference Range Interpretation Comments PROTIME (BEAKER) (test code = 14.5 seconds 11.9-14.2 H 759) INR (BEAKER) (test code = 370) 1.2 <=5.9 PARTIAL THROMBOPLASTIN TIME 32.6 seconds 22.5-36.0 (BEAKER) (test code = 760) Effective 02/10/2019: PT Reference Range ChangeNew: 11.9-14.2 Previous: 11.7- 14.7RECOMMENDED COUMADIN/WARFARIN INR THERAPY RANGESSTANDARD DOSE: 2.0-3.0 Includes: PROPHYLAXIS for venous thrombosis, systemic embolization; TREATMENT for venous thrombosis and/or pulmonary embolus.HIGH RISK: Target INR is2.5-3.5 for patients wiht mechanical heart valves.CBC W/PLT COUNT & AUTO [id number] 05:13:00 Test Item Value Reference Range Interpretation Comments WHITE BLOOD CELL COUNT (BEAKER) 9.2 K/ L 3.5-10.5 (test code = 775) RED BLOOD CELL COUNT (BEAKER) 4.06 M/ L 3.93-5.22 (test code = 761) HEMOGLOBIN (BEAKER) (test code = 12.4 GM/DL 11.2-15.7 410) HEMATOCRIT (BEAKER) (test code = 35.9 % 34.1-44.9 411) MEAN CORPUSCULAR VOLUME (BEAKER) 88.4 fL 79.4-94.8 (test code = 753) MEAN CORPUSCULAR HEMOGLOBIN 30.5 pg 25.6-32.2 (BEAKER) (test code = 751) MEAN CORPUSCULAR HEMOGLOBIN CONC 34.5 GM/DL 32.2-35.5 (BEAKER) (test code = 752) RED CELL DISTRIBUTION WIDTH 11.8 % 11.7-14.4 (BEAKER) (test code = 412) PLATELET COUNT (BEAKER) (test 254 K/CU MM 150-450 code = 756) MEAN PLATELET VOLUME (BEAKER) 10.2 fL 9.4-12.3 (test code = 754) NUCLEATED RED BLOOD CELLS 0 /100 WBC 0-0 (BEAKER) (test code = 413) NEUTROPHILS RELATIVE PERCENT 59 % (BEAKER) (test code = 429) LYMPHOCYTES RELATIVE PERCENT 31 % (BEAKER) (test code = 430) MONOCYTES RELATIVE PERCENT 8 % (BEAKER) (test code = 431) EOSINOPHILS RELATIVE PERCENT 1 % (BEAKER) (test code = 432) BASOPHILS RELATIVE PERCENT 1 % (BEAKER) (test code = 437) NEUTROPHILS ABSOLUTE COUNT 5.43 K/ L 1.56-6.13 (BEAKER) (test code = 670) LYMPHOCYTES ABSOLUTE COUNT 2.84 K/ L 1.18-3.74 (BEAKER) (test code = 414) MONOCYTES ABSOLUTE COUNT (BEAKER) 0.76 K/ L 0.24-0.36 H (test code = 415) EOSINOPHILS ABSOLUTE COUNT 0.07 K/ L 0.04-0.36 (BEAKER) (test code = 416) BASOPHILS ABSOLUTE COUNT (BEAKER) 0.06 K/ L 0.01-0.08 (test code = 417) IMMATURE GRANULOCYTES-RELATIVE 0 % 0-1 PERCENT (BEAKER) (test code = 2801) SCREEN, [id number] 20:10:00 Test Item Value Reference Range Interpretation Comments TEST URINE (BEAKER) (test Negative code = 583) BASIC METABOLIC [id number] 18:39:00 Test Item Value Reference Range Interpretation Comments SODIUM (BEAKER) 138 meq/L 136-145 (test code = 381) POTASSIUM (BEAKER) 3.7 meq/L 3.5-5.1 (test code = 379) CHLORIDE (BEAKER) 101 meq/L 98-107 (test code = 382) CO2 (BEAKER) (test 29 meq/L 22-29 code = 355) BLOOD UREA NITROGEN 10 mg/dL 7-21 (BEAKER) (test code = 354) CREATININE (BEAKER) 0.74 mg/dL 0.57-1.25 (test code = 358) GLUCOSE RANDOM 139 mg/dL 70-105 H (BEAKER) (test code = 652) CALCIUM (SANDYAKER) 9.4 mg/dL 8.4-10.2 (test code = 697) EGFR (LUAN) (test 92 mL/min/1.73 ESTIMA EMMA GFR IS code = 1092) sq m NOT ACCURATE CREATININE CLEARANCE IN PREDICTING GLOMERULAR FILTRATION RATE . ESTIMATED GFR I S NOT APPLICABLE FOR DIALYSIS PATIEN TS.
[2020-03-12 22:53] LABS: Absolute Lymphocytes (CBC) 2.4 K/uL (0.7-4.9); Basophils % 0.6 % (0-1.3); Hematocrit 36.8 % (36.0-45.0); Lymphocytes % 29.8 % (15.3-44.8); MPV 9.3 fL (7.6-11.3); RBC Red Blood Cell Count 4.03 M/uL (3.86-4.86)
[2020-03-12] MEDS ORDERED: FAMOTIDINE 20 MG/2 ML VIAL IV ONE (22:57)
[2020-03-12] MEDS ORDERED: ONDANSETRON 4 MG/2 ML VIAL ONE (22:57)
[2020-03-12] MEDS ORDERED: MORPHINE 2 MG/ML SYR ONE (22:57)
[2020-03-12 23:06] LABS: ALT/SGPT 28 U/L (12-78); AST/SGOT 42 U/L (15-37); Albumin 3.6 g/dL (3.4-5.0); Alkaline Phosphatase 76 U/L (45-117); BUN Blood Urea Nitrogen 15 mg/dL (7-18); Bicarbonate 24 mmol/L (21-32); Bilirubin Direct < 0.1 mg/dL (0-0.2); Bilirubin Total 0.3 mg/dL (0.2-1.0); Glucose Level 106 mg/dL (74-106); Lipase 211 U/L (73-393); Potassium 3.6 mmol/L (3.5-5.1); Protein, Total 7.4 g/dL (6.4-8.2); Sodium Level 140 mmol/L (136-145)
[2020-03-13] MEDS ORDERED: MORPHINE 2 MG/ML SYR ONE (00:02)
[2020-03-13] MEDS ORDERED: DICYCLOMINE HCL 10 MG CAP ONE (01:00)
[2020-03-13] MEDS ORDERED: FENTANYL CITR 100 MCG/2 ML ONE (01:24)
[2020-03-13] MEDS ORDERED: NA CHLORIDE 0.9% 1,000 ML ONE (01:24)
[2020-03-13] MEDS ORDERED: MAGNE/ALUM HYDROXD 30 ML UCUP ONE (01:25)
[2020-03-13] MEDS ORDERED: LIDOCAINE VISCOUS 2% SOLN 15 ML UDC ONE (01:25)
--- NOTE | 2020-03-13 01:28 | ER ---
Nurse's Notes [facility] Name: Zehra Carrillo Age: 34 yrs Sex: Female : 1985 Arrival Date: 03/12/2020 Time: 21:59 Bed 6 Private MD: Diagnosis: Upper abdominal pain, unspecified Presentation: 03/12 22:10 Chief complaint: Patient states: Epigastric pain that began one hour ago, states having sg hx of constipation, states never having this pain before its an 04/24, began while just watching TV with her spouse, denies N/V/D at this time. Coronavirus screen: Proceed with normal triage. Ebola Screen: Patient negative for fever greater than or equal to 101.5 degrees Fahrenheit, and additional compatible Ebola Virus Disease symptoms Patient denies exposure to infectious person. Patient denies travel to an Ebola-affected area in the 21 days before illness onset. No symptoms or risks identified at this time. Initial Sepsis Screen: Does the patient meet any 2 criteria? No. Patient's initial sepsis screen is negative. Does the patient have a suspected source of infection? No. Patient's initial sepsis screen is negative. Risk Assessment: Do you want to hurt yourself or someone else? Patient reports no desire to harm self or others. Onset of symptoms was March 12, 2020. Care prior to arrival: None. Transition of care: patient was not received from another setting of care. 22:10 Method Of Arrival: Ambulatory sg 22:10 Acuity: FRANCISCO 3 sg Historical: - Allergies: 22:13 No Known Allergies; sg - Home Meds: 22:13 None [Active]; sg - PMHx: 22:13 ADD/ADHD; sg 22:23 Constipation; sg - PSHx: 22:13 Bariatric Sx; sg - Immunization history:: Adult Immunizations up to date. - Social history:: Smoking status: Patient denies any tobacco usage or history of. Screenin:10 Abuse screen: Denies threats or abuse. Nutritional screening: No deficits noted. ea Tuberculosis screening: No symptoms or risk factors identified. Fall Risk None identified. Assessment: 23:10 General: Appears in no apparent distress. uncomfortable, Behavior is calm, cooperative, jd3 appropriate for age. Pain: Complains of pain in abdomen Quality of pain is described as aching, tender. Neuro: Level of Consciousness is awake, alert, obeys commands, Oriented to person, place, time, situation. Cardiovascular: Denies chest pain, Capillary refill < 3 seconds Patient's skin is warm and dry. Respiratory: Airway is patent Respiratory effort is even, unlabored, Respiratory pattern is regular, symmetrical, Denies cough, shortness of breath. GI: Abdomen is flat, non-distended, Abd is soft X 4 quads Abdomen is tender to palpation X 4 quads. Reports lower abdominal pain, upper abdominal pain, nausea, vomiting. : Reports pain in bilateral flank(s). EENT: No signs and/or symptoms were reported regarding the EENT system. Derm: Skin is intact, Skin is dry, Skin is normal, Skin temperature is warm. Musculoskeletal: Circulation, motion, and sensation intact. Range of motion: intact in all extremities. 03/13 00:15 Reassessment: Patient appears in no apparent distress at this time. No changes from jd3 previously documented assessment. Patient and/or family updated on plan of care and expected duration. Pain level reassessed. Patient is alert, oriented x 3, equal unlabored respirations, skin warm/dry/pink. 01:24 Reassessment: Patient appears in no apparent distress at this time. Patient and/or jd3 family updated on plan of care and expected duration. Pain level reassessed. Patient is alert, oriented x 3, equal unlabored respirations, skin warm/dry/pink. reports continued pain. reports decreased nausea. 01:55 Reassessment: Patient and/or family updated on plan of care and expected duration. Pain ea level reassessed. Patient is alert, oriented x 3, equal unlabored respirations, skin warm/dry/pink. Discharge instruction given to patient, verbalized the understanding of instruction. Pt left ED ambulatory tolerating well. Pt awaiting in car for pt. Vital Signs: 03/12 23:14 BP 100 / 57; Pulse 62; Resp 18; Temp 97.7; Pulse Ox 100% ; Weight 75.75 kg; Height 5 ea ft. 6 in. (167.64 cm); 03/13 00:27 BP 99 / 67; Pulse 63; Resp 16 S; Pulse Ox 98% on R/A; jd3 01:24 BP 97 / 75; Pulse 70; Resp 16 S; Pulse Ox 97% on R/A; jd3 03/12 23:14 Body Mass Index 26.95 (75.75 kg, 167.64 cm) ea ED Course: 03/12 21:59 Patient arrived in ED. cf2 22:08 Nunu Fournier MD is Attending Physician. ma2 22:08 Anibal Varner PA is PHCP. cp 22:11 Nunu Fournier MD is Attending Physician. cp 22:12 Triage completed. sg 22:12 Arm band placed on. sg 22:35 Julio C Salas RN is Primary Nurse. jd3 22:43 Inserted saline lock: 20 gauge in right antecubital area, using aseptic technique. jd3 Blood collected. 23:10 Patient has correct armband on for positive identification. Bed in low position. Call ea light in reach. 03/13 00:01 CT Abd/Pelvis - IV Contrast Only In Process Unspecified. EDMS 01:27 Brent Conklin MD is Referral Physician. cp 01:47 No provider procedures requiring assistance completed. ea 01:50 IV discontinued, intact, bleeding controlled, No redness/swelling at site. Pressure ea dressing applied. Administered Medications: 03/12 22:59 Drug: morphine 2 mg Route: IVP; Site: right antecubital; jd3 23:55 Follow up: Response: No adverse reaction; RASS: Alert and Calm (0) jd3 22:59 Drug: Zofran (Ondansetron) 4 mg Route: IVP; Site: right antecubital; jd3 23:57 Follow up: Response: No adverse reaction jd3 22:59 Drug: Pepcid 20 mg Route: IVP; Site: right antecubital; jd3 23:57 Follow up: Response: No adverse reaction jd3 23:56 Drug: morphine 2 mg Route: IVP; Site: right antecubital; jd3 03/13 00:50 Follow up: Response: No adverse reaction; RASS: Alert and Calm (0) jd3 00:53 Drug: Bentyl 20 mg Route: PO; jd3 01:47 Follow up: Response: No adverse reaction ea 01:23 Drug: NS 0.9% 1000 ml Route: IV; Rate: 1 bolus; Site: right antecubital; jd3 01:23 Drug: fentaNYL (PF) 25 mcg Route: IVP; Site: right antecubital; jd3 01:48 Follow up: Response: No adverse reaction ea 01:23 Drug: GI Cocktail without - (Maalox Suspension 30 ml, Lidocaine Liquid 2 % 15 jd3 ml) Route: PO; 01:48 Follow up: Response: No adverse reaction ea Outcome: 01:27 Discharge ordered by . clive 01:56 Discharged to home ambulatory, with family. ea 01:56 Condition: stable 01:56 Discharge instructions given to patient, Instructed on discharge instructions, follow up and referral plans. medication usage, Demonstrated understanding of instructions, follow-up care, medications, Prescriptions given X 3. 01:57 Patient left the ED. ea Signatures: Dispatcher [employer] EDMS Obdulio Lancaster RN RN Anibal Strauss PA PA cp Antunez, Elena, RN RN ea Davies, Jonathon, RN RN jNunu Farah MD MD ma2 Regulo Smart 2
--- NOTE | 2020-03-13 01:28 | EDPHYS ---
Physician Documentation [facility] Name: Zehra Carrillo Age: 34 yrs Sex: Female : 1985 Arrival Date: 03/12/2020 Time: 21:59 Bed 6 Private MD: ED Physician Nunu Fournier HPI: 03/12 22:20 This 34 yrs old Female presents to ER via Ambulatory with complaints of cp Abdominal Pain, Constipation. 22:20 The patient presents with abdominal pain in the upper abdomen, below ribcage. cp 22:20 Onset: The symptoms/episode began/occurred suddenly, 1 hour(s) ago. cp 22:20 The symptoms radiate to cp 22:20 Associated signs and symptoms: Pertinent positives: constipation, nausea. cp Historical: - Allergies: 22:13 No Known Allergies; sg - Home Meds: 22:13 None [Active]; sg - PMHx: 22:13 ADD/ADHD; sg 22:23 Constipation; sg - PSHx: 22:13 Bariatric Sx; sg - Immunization history:: Adult Immunizations up to date. - Social history:: Smoking status: Patient denies any tobacco usage or history of. ROS: 22:30 Constitutional: Negative for body aches, chills, fever, poor PO intake. cp 22:30 Eyes: Negative for injury, pain, redness, and discharge. cp 22:30 Cardiovascular: Negative for chest pain, palpitations. 22:30 Respiratory: Negative for cough, shortness of breath, wheezing. cp 22:30 Abdomen/GI: Positive for abdominal pain, Negative for diarrhea, constipation, active vomiting. 22:30 Back: Positive for radiated pain. 22:30 : Negative for urinary symptoms, vaginal bleeding, vaginal discharge. 22:30 Neuro: Negative for altered mental status, headache, weakness. 22:30 All other systems are negative. Exam: 22:35 Constitutional: The patient appears in no acute distress, alert, awake, cp non-diaphoretic, non-toxic, well developed, well nourished. 22:35 Head/Face: Normocephalic, atraumatic. cp 22:35 Eyes: Periorbital structures: appear normal, Conjunctiva: normal, no exudate, no cp injection, Sclera: no appreciated abnormality, Lids and lashes: appear normal, bilaterally. 22:35 ENT: External ear(s): are unremarkable, Nose: is normal, Mouth: is normal, Posterior pharynx: Airway: no evidence of obstruction, patent. 22:35 Chest/axilla: Inspection: normal, Palpation: is normal, no crepitus, no tenderness. 22:35 Cardiovascular: Rate: normal, Rhythm: regular. 22:35 Respiratory: the patient does not display signs of respiratory distress, Respirations: normal, no use of accessory muscles, no retractions, labored breathing, is not present, Breath sounds: are clear throughout, no decreased breath sounds, no stridor, no wheezing. 22:35 Abdomen/GI: Inspection: abdomen appears normal, Bowel sounds: active, all quadrants, Palpation: soft, in all quadrants, moderate abdominal tenderness, in the epigastric area, right upper quadrant and left upper quadrant, rebound tenderness, is not appreciated, voluntary guarding, is elicited in the epigastric area, right upper quadrant and left upper quadrant. 22:35 Back: pain, of the mid back area, ROM is normal. 22:35 Skin: no rash present. 22:35 Neuro: Orientation: to person, place \T\ time. Mentation: is normal, Motor: moves all fours, strength is normal. Vital Signs: 23:14 BP 100 / 57; Pulse 62; Resp 18; Temp 97.7; Pulse Ox 100% ; Weight 75.75 kg; Height 5 ea ft. 6 in. (167.64 cm); 03/13 00:27 BP 99 / 67; Pulse 63; Resp 16 S; Pulse Ox 98% on R/A; jd3 01:24 BP 97 / 75; Pulse 70; Resp 16 S; Pulse Ox 97% on R/A; jd3 03/12 23:14 Body Mass Index 26.95 (75.75 kg, 167.64 cm) ea MDM: 03/12 22:08 Patient medically screened. ma2 23:00 Differential diagnosis: cholecystitis, Cholelithiasis, non-specific abd pain, cp pancreatitis, Peptic Ulcer Disease, Perf. Duodenal Ulcer, Perf. Gastric Ulcer, Ureterolithiasis, urinary tract infection. 03/13 01:25 Data reviewed: vital signs, nurses notes, lab test result(s), radiologic studies, CT cp scan. 01:25 Counseling: I had a detailed discussion with the patient and/or guardian regarding: the cp historical points, exam findings, and any diagnostic results supporting the discharge/admit diagnosis, lab results, radiology results, the need for outpatient follow up, a general surgeon, to return to the emergency department if symptoms worsen or persist or if there are any questions or concerns that arise at home. 01:26 Response to treatment: the patient's symptoms have markedly improved after treatment, cp and as a result, I will discharge patient. 01:26 Special discussion: Based on the patient's Hx, exam, and Dx evaluation, there is no cp indication for emergent surgery or inpatient Tx. It is understood by the patient/guardian that if the Sx's persist or worsen they need to return immediately for re-evaluation. 03/12 22:12 Order name: Basic Metabolic Panel; Complete Time: 23:09 cp 03/12 22:12 Order name: CBC with Diff; Complete Time: 23:09 cp 03/12 22:12 Order name: Hepatic Function; Complete Time: 23:09 cp 03/13 00:45 Interpretation: Normal except: AST 42. cp 03/12 22:12 Order name: Lipase; Complete Time: 23:09 cp 03/12 22:53 Order name: CT Abd/Pelvis - IV Contrast Only cp 03/12 22:12 Order name: IV Saline Lock; Complete Time: 22:43 cp 03/12 22:12 Order name: Labs collected and sent; Complete Time: 22:44 cp 03/12 22:12 Order name: Urine Dipstick-Ancillary (obtain specimen); Complete Time: 23:08 cp 03/12 22:12 Order name: Urine Test (obtain specimen); Complete Time: 23:08 cp 03/13 00:45 Order name: PO challenge; Complete Time: 01:23 cp Administered Medications: 03/12 22:59 Drug: morphine 2 mg Route: IVP; Site: right antecubital; jd3 23:55 Follow up: Response: No adverse reaction; RASS: Alert and Calm (0) jd3 22:59 Drug: Zofran (Ondansetron) 4 mg Route: IVP; Site: right antecubital; jd3 23:57 Follow up: Response: No adverse reaction jd3 22:59 Drug: Pepcid 20 mg Route: IVP; Site: right antecubital; jd3 23:57 Follow up: Response: No adverse reaction jd3 23:56 Drug: morphine 2 mg Route: IVP; Site: right antecubital; jd3 03/13 00:50 Follow up: Response: No adverse reaction; RASS: Alert and Calm (0) jd3 00:53 Drug: Bentyl 20 mg Route: PO; jd3 01:47 Follow up: Response: No adverse reaction ea 01:23 Drug: NS 0.9% 1000 ml Route: IV; Rate: 1 bolus; Site: right antecubital; jd3 01:23 Drug: fentaNYL (PF) 25 mcg Route: IVP; Site: right antecubital; jd3 01:48 Follow up: Response: No adverse reaction ea 01:23 Drug: GI Cocktail without - (Maalox Suspension 30 ml, Lidocaine Liquid 2 % 15 jd3 ml) Route: PO; 01:48 Follow up: Response: No adverse reaction ea Disposition: 03:10 Co-signature as Attending Physician, Nunu Fournier MD. ma2 Disposition: 03/13/20 01:27 Discharged to Home. Impression: Upper abdominal pain, unspecified. - Condition is Stable. - Discharge Instructions: Abdominal Pain, Adult. - Prescriptions for Bentyl 20 mg Oral Tablet - take 2 tablets by ORAL route every 6 hours As needed; 30 tablet. Zofran 4 mg Oral Tablet - take 1 tablet by ORAL route every 12 hours As needed; 20 tablet. Protonix 40 mg Oral Tablet - take 1 tablet by ORAL route once daily; 30 tablet. - Medication Reconciliation Form, Thank You Letter, Antibiotic Education, Prescription Opioid Use, Work release form form. - Follow up: Brent Conklin MD; When: Today; Reason: Recheck today's complaints. - Problem is new. - Symptoms have improved. Signatures: Dispatcher [employer] EDObdulio Juarez RN RN Anibal Strauss PA PA cp Antunez, Elena, RN RN ea Davies, Jonathon, RN RN jd3 Alzahri, Mohammad, MD MD ma2 Corrections: (The following items were deleted from the chart) 01:57 01:27 03/13/2020 01:27 Discharged to Home. Impression: Upper abdominal pain, ea unspecified. Condition is Stable. Forms are Medication Reconciliation Form, Thank You Letter, Antibiotic Education, Prescription Opioid Use. Follow up: Brent Conklin; When: Today; Reason: Recheck today's complaints. Problem is new. Symptoms have improved. cp
[2020-03-13 02:05] VITALS: TEMP 97.7
[2020-03-13 02:07] VITALS: BP 97/75; O2SAT 97
--- NOTE | 2020-03-13 10:38 | RAD REPORT ---
EXAM DESCRIPTION: CT Abdomen Pelvis W Contrast CLINICAL HISTORY: 34 years Female upper abdominal pain TECHNIQUE: Contiguous axial images obtained through the abdomen and pelvis following intravenous con trast administration. Coronal and sagittal reformatted images provided. This CT exam was performed according to our departmental dose-optimization program, which includes on e or more of the following dose reduction techniques: automated exposure control, adjustment of the m A and/or kV according to patient size, and/or use of iterative reconstruction technique. COMPARISON: No prior exams provided for comparison. FINDINGS: The gallbladder appears mildly distended without visualized mural thickening or inflammati on. No visualized gallstone or biliary stone. The lung bases, liver, pancreas, spleen, adrenal glands, kidneys, urinary bladder, and osseous struct ures are normal. Intrauterine device in place. No adnexal mass. Prior gastric sleeve surgery. There is no bowel inflammation, obstruction, free intraperitoneal air, or ascites. The appendix is normal. IMPRESSION: Mild gallbladder distention. If there is right upper quadrant pain, ultrasound recommend ed. No other acute findings in the abdomen or pelvis. Electronically signed by: Jillian Dior MD 03/13/2020 12:27 AM CDT Due to temporary technical issues with the PACS/Fluency reporting system, reports are being signed by the in house radiologist without review as a courtesy to ensure prompt reporting. The interpreting r adiologist is fully responsible for the content of the report.
== END 2020-03-13 01:57 | disposition home or self-care (01) ==
LOC: ER 21:56
DX: R10.10 Upper abdominal pain, unspecified (principal); K59.00 Constipation, unspecified
CPT/HCPCS: 85025; 80048; 36415; 80076; 83690; 74177; 96375; 96374; 99284; Q9967; J3010; J2270; J7030; J2405

== ENCOUNTER 2020-03-22 07:07 | Day surgery (SDC) | payer OTHER ==
[2020-03-21 18:19] LABS: ALT/SGPT 21 U/L (12-78); AST/SGOT 11 U/L (15-37); Albumin 3.9 g/dL (3.4-5.0); Alkaline Phosphatase 90 U/L (45-117); Amylase 49 U/L (25-115); BUN Blood Urea Nitrogen 12 mg/dL (7-18); Bicarbonate 27 mmol/L (21-32); Bilirubin Direct 0.2 mg/dL (0-0.2); Bilirubin Total 0.7 mg/dL (0.2-1.0); Glucose Level 83 mg/dL (74-106); Lipase 77 U/L (73-393); Potassium 3.8 mmol/L (3.5-5.1); Sodium Level 140 mmol/L (136-145)
[2020-03-21 18:31] LABS: Basophils % 0.7 % (0-1.3); Hematocrit 38.5 % (36.0-45.0); Lymphocytes % 34.1 % (15.3-44.8); MPV 9.7 fL (7.6-11.3)
--- OUTSIDE RECORDS SUMMARY | 2020-03-22 07:10 | XMS REPORT | Clinical Summary ---
:1985 [facility] [place] [address] Care Team Providers Name Role Phone Go Evangelista MD Primary Care Provider [phone] Allergies No Known Allergies Medications Medication Sig Dispensed Refills Start Date End Date Status dextroamphetamine/ampheta Take by mouth. 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 Obesity 03/01/2019 Right otitis media 03/01/2019 Mastoiditis 03/01/2019 Encounters Date Type Specialty Care Team Description 07/10/2019 Refill Internal Medicine Emma Moe MD after 03/22/2019 Family History Medical History Relation Name Comments [...] Not on file Results Not on fileafter 03/22/2019 Insurance Payer Benefit Plan / Group Subscriber ID Type Phone A ddress CIGNA - MGD CARE CIGNA HMO/POS/OPEN ACCESS xxxxxxxxxxx HMO/POS Advance Directives For more information, please contact:[facility] [employer] [facility] [place], [place] [phone] Code Status Date Activated Date Inactivated Comments Full Code 03/01/2019 5:42 PM 03/04/2019 4:58 PM This code status was determined by: Patient
--- OUTSIDE RECORDS SUMMARY | 2020-03-22 07:10 | XMS REPORT | Clinical Summary ---
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
--- OUTSIDE RECORDS SUMMARY | 2020-03-22 07:11 | XMS REPORT | Continuity of Care Document ---
:1985 Author Organization [facility] t Address [address] [place] [address] Care Team Providers Name Role Phone Palma Evangelista MD Primary Care Physician Abhi MIDDLETON, Anthony Attending Clinician NERIS Attending Clinician Unavailable NERIS Admitting Clinician Unavailable Payers Payer Name Policy Type Policy Number Effective Date Expiration Date S aleshia CIGNA - MGD x[facility]OPEN Center ACCESSxxxxxxxxx xxHMO/POS Problems Condition Condition Condition Status Onset Resolution Last Treating Co mments Source Name Details Category Date Date Treatment Clinician Date Right Right Disease Active [address] [facility] otitis otitis 6-17 [facility] externa [facility]:00: Medical 00 [place] Obesity Obesity Disease Active 2019-[address] [facility] 6[facility]17 [facility] - [facility]: Medical 00 [place] Right Right Disease Active 2019-[address] [facility] otitis otitis 6-17 [facility] media media 00:[facility]: Medical 00 [place] Mastoiditi Mastoiditi Disease Active 2019-[address] s s 6-17 [facility] - [facility]: Medical 00 [place] Allergies, Adverse Reactions, Alerts This patient has no known allergies or adverse reactions. Family History Family Member Diagnosis Comments Start Date Stop Date Source Natural father Diabetes [facility] Natural father Hyperlipidemia [facility] Natural father Hypertension [facility] Natural mother Cancer [facility] Natural mother Diabetes [facility] Natural mother Hypertension [facility] Social History Social Habit Start Date Stop Date Quantity Comments Source ASSERTION 2017-01-28 Ry Method ist 00:00:[address] [facility] Alcohol intake 2017-05-08 2017-05-08 [facility] non-drinker of alcohol (finding) Smoking Status Start Date Stop Date Source Never smoker [facility] Medications Ordered Filled Start Stop Current Ordering Indication Dosage Frequency Signature Comments Components Source Medication Medication Date Date Medication? Clinician (SIG) Name Name dextroamphe Yes Take by [facility] tamine/amph 6-17 mouth. [facility] - etamine 17:33: Medical ([facility]ALL Center ORAL) Procedures This patient has no known procedures. Plan of Care Planned Activity Planned Date Details Comments Source Future Scheduled 2020-04-15 INFLUENZA VACCINE [place] [facility] 00:00:00 [code = INFLUENZA VACCINE] Future Scheduled [facility] malignant neoplasm of cervix (procedure) [code = 128651395] Results Test Description Test Time Test Comments Results Result Comments Source BLOOD CULTURE 2019-03-07 09:55:00 Test Item Value Reference Range Interpretation Comme nts CULTURE (BEAKER) (test code = 1095) No growth in 5 days BLOOD [id number] 20:01:00 Test Item Value Reference Range Interpretation Comments CULTURE (BEAKER) (test No growth in 5 days code = 1095) EAR CULTURE + GRAM [id number] 10:54:00 Test Item Value Reference Range Interpretation [...] gram variable (BEAKER) (test code = rods 003555) GRAM STAIN RESULT <1+ gram (BEAKER) (test code = positive cocci 957986) in pairs BASIC METABOLIC [id number] 06:46:00 Test Item Value Reference Range Interpretation [...] PATIEN TS. CBC W/PLT COUNT & AUTO [id number] 06:02:00 Test Item Value Reference Range Interpretation [...] code = 2801) URINALYSIS W/ REFLEX URINE [id number] 14:41:00 Test Item Value Reference Range Interpretation [...] SOURCE(BEAKER) (test code = 2795) BASIC METABOLIC [id number] 05:45:00 Test Item Value Reference Range Interpretation [...] PATIEN TS. CBC W/PLT COUNT & AUTO [id number] 05:11:00 Test Item Value Reference Range Interpretation [...] PERCENT (BEAKER) (test code = 2801) HEMOGLOBIN [id number] 13:15:00 Test Item Value Reference Range Interpretation Comments HEMOGLOBIN A1C (BEAKER) (test code = 5.6 % 4.3-6.1 368) BASIC METABOLIC [id number] 05:44:00 Test Item Value Reference Range Interpretation [...] S NOT APPLICABLE FOR DIALYSIS PATIEN TS. [id number] 05:16:00 Test Item Value Reference Range Interpretation [...] mechanical heart valves.CBC W/PLT COUNT & AUTO [id number] 05:13:00 Test Item Value Reference Range Interpretation [...] PERCENT (BEAKER) (test code = 2801) SCREEN, [id number] 20:10:00 Test Item Value Reference Range Interpretation Comments TEST URINE (BEAKER) (test Negative code = 583) BASIC METABOLIC [id number] 18:39:00 Test Item Value Reference Range Interpretation [...] H (BEAKER) (test code = 652) CALCIUM (BEAKER) 9.4 mg/dL 8.4-10.2 (test code = 697) EGFR (BEAKER) (test 92 mL/min/1.73 ESTIMA EMMA GFR IS code = 1092) sq m NOT ACCURATE CREATININE CLEARANCE IN PREDICTING GLOMERULAR FILTRATION RATE . ESTIMATED GFR I S NOT APPLICABLE FOR DIALYSIS PATIEN TS.
[2020-03-22] MEDS ORDERED: Ringers Lactate 1,000 ML IV ONE (08:06)
[2020-03-22] MEDS ORDERED: FENTANYL CITR 100 MCG/2 ML ONE (08:46)
[2020-03-22] MEDS ORDERED: ROCURONIUM 50 MG/5 ML VIAL IV ONE (08:46)
[2020-03-22] MEDS ORDERED: LIDOCAINE 1% MPF 5 ML VIAL ONE (08:46)
[2020-03-22] MEDS ORDERED: MIDAZOLAM HCL 2 MG/2 ML INJ ONE (08:46)
[2020-03-22] MEDS ORDERED: propofoL 200 MG/20 ML VIAL IV ONE (08:46)
[2020-03-22] MEDS: CEFOXITIN/SWI 1gm 1 GM/10 ML SYR ONE ×2 (08:51→08:55)
[2020-03-22] MEDS ORDERED: KETOROLAC 30 MG/ML INJ ONE (09:11)
[2020-03-22] MEDS ORDERED: dexAMETHasone 10 MG/ML VIAL ONE (09:11)
[2020-03-22] MEDS ORDERED: GLYCOPYRROLATE 0.2 MG/ML SYR ONE (09:47)
[2020-03-22] MEDS ORDERED: ONDANSETRON 4 MG/2 ML VIAL ONE ×2 (09:47→10:10)
[2020-03-22] MEDS ORDERED: NEOSTIGMINE 1 MG/ML -5 ML ONE (09:48)
--- NOTE | 2020-03-22 09:49 | P.BOP ---
Preoperative diagnosis: acute cholecystitis, symptomatic cholelithiasis, RUQ abd pain Postoperative diagnosis: same Primary procedure: Laparoscopic cholecystectomy Estimated blood loss: <10cc Specimen: gb Findings: as above Anesthesia: General Complications: None Drain(s): Other Transferred to: Recovery Room Condition: Good
[2020-03-22] MEDS: HYDROMORPHONE HCL 2 MG/ML inj ONE ×4 (10:01→10:17)
[2020-03-22] MEDS: HYDROMORPHONE HCL 1 MG/ML INJ ONE ×2 (10:22→10:27)
[2020-03-22] MEDS: MEPERIDINE HCL 50 MG/ML ONE ×2 (10:30→10:35)
[2020-03-22] MEDS ORDERED: MEPERIDINE HCL 50 MG/ML ONE (10:50)
[2020-03-22 11:27] VITALS: O2SAT 98
[2020-03-22] MEDS ORDERED: CODEINE 30MG/APAP 300MG TAB ONE (12:00)
[2020-03-22 12:28] VITALS: BP 106/68; TEMP 97
--- NOTE | 2020-03-27 22:18 | OP ---
Date of Procedure: 03/22/2020 Surgeon: Brent Conklin MD Preoperative Diagnoses: Acute cholecystitis, symptomatic cholelithiasis, right upper quadrant abdomi nal pain. Postoperative Diagnoses: Acute cholecystitis, symptomatic cholelithiasis, right upper quadrant abdom inal pain. Procedure Performed: Laparoscopic cholecystectomy. Estimated Blood Loss: Less than 10 mL. Anesthesia: General plus local. Indications: This is the case of a female who comes to us with above diagnosis, intractable abdomina l pain. She tried to control that with diet, but she is unable to do so. She wants the gallbladder removed. The benefits, alternatives, and risks of laparoscopic possible open cholecystectomy were fu lly explained, which include, but not limited to infection, bleeding, damage to adjacent structures, anesthesia complications, choledocholithiasis, bile leak, pancreatitis, AK, and even . She also understands this may not relieve any symptoms, she might need more than one surgical intervention. She understands also the importance of weight loss. Procedure In Detail: The patient was brought to the operating room, placed in supine position. Anes thesia was done without complication. Abdominal area was prepped and draped in the sterile fashion. Marcaine 0.5% was injected for local anesthetic followed by sharp incision of the skin in the infrau mbilical region. Incision was carried down to fascia, which was opened under direct vision. Periton eum was encountered, opened under direct vision. Vicryl #1 placed inside the fascia. Chandni trocar was carefully introduced. No bleeding was obtained. I placed 3 more trocars, 5 mm each one of them, 1 in the epigastric area, 2 in the right upper quadrant under direct visualization. This allowed me to put a grasper in the fundus of the gallbladder, another grasper in the infundibulum, retracted th e gallbladder in the inferolateral fashion exposing the triangle of Calot and obtaining critical view . Cystic duct and cystic artery were clearly isolated, freed circumferentially and a connection betw een those and the gallbladder was clearly identified. I proceeded to ligate those by using at least 3 clips proximal, 1 clip distal, ligation in the middle. Same was done with the cystic artery. No b ile leak, no bleeding. The gallbladder was removed from the liver using Bovie cauterizer and removed from abdominal cavity using EndoCatch through the umbilical incision. The area was inspected once a gain. No bile leak. No bleeding. At that moment, I proceeded to remove the trocars under direct vi larry, deflated pneumoperitoneum, closed the fascia with 1 Vicryl, irrigated subcutaneous tissue, clos ed that with 3-0 chromic and skin approximated. Sponge count and instrument counts were correct. Carl thompson tolerated the procedure well. Patient was sent to the recovery in stable condition. PIPE/CITLALLI Voice ID: [id number] Report ID: [id number]
--- NOTE | 2020-03-27 22:21 | DS ---
Date of Discharge: 03/22/2020 Diagnoses: Acute cholecystitis, symptomatic cholelithiasis, right upper quadrant abdominal pain. Procedure: Laparoscopic cholecystectomy. Disposition: Home. Activity: As tolerated. No heavy lifting Plan: Follow up in my office in 1 week. Call for appointment [phone]. Keep area dry for 48 hours then may shower. Medications: See orders. PIPE/CITLALLI Voice ID: [id number] Report ID: [id number]
== END 2020-03-22 12:30 | disposition home or self-care (01) ==
LOC: OR 07:07
PROVIDERS: ATTEND Surgery
PROC: 0FT44ZZ Resection of Gallbladder, Percutaneous Endoscopic Approach (ICD-10-PCS; principal; 2020-03-22 08:15)
DX: K80.12 Calculus of gallbladder with acute and chronic cholecystitis without obstruction (principal); Z11.59 Encounter for screening for other viral diseases; K21.9 Gastro-esophageal reflux disease without esophagitis; Z98.84 Bariatric surgery status; Z82.49 Family history of ischemic heart disease and other diseases of the circulatory system; Z83.3 Family history of diabetes mellitus; Z80.49 Family history of malignant neoplasm of other genital organs
CPT/HCPCS: 47562; 85025; 80048; 36415; 82150; 84703; 80076; 88304; 83690; U0002; J2704; J2250; J1170 ×2; J3010; J1100; J2175 ×2; J2710; J7120; J2405 ×2

== ENCOUNTER 2020-08-05 01:33 | Emergency (ER) | payer OTHER ==
--- OUTSIDE RECORDS SUMMARY | 2020-08-05 01:35 | XMS REPORT | Clinical Summary ---
:1985 Author Organization [facility] Address [address] [place] [address] Care Team Providers Name Role Phone Go Evangelista MD Primary Care Provider [phone] Allergies No Known Allergies Medications Medication Sig Dispensed Refills Start Date End Date Status dextroamphetamine/ampheta Take by mouth. 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 Obesity 03/01/2019 Right otitis media 03/01/2019 Mastoiditis 03/01/2019 Family History Medical History Relation Name Comments Diabetes Father Hyperlipidemia Father Hypertension Father Cancer Mother Diabetes Mother Hypertension Mother Relation Name Status Comments Father Mother Social History Tobacco Use Types Packs/Day Years Used Date Never Smoker Smokeless Tobacco: Never Used Sex Assigned at Date Recorded Not on file Last Filed Vital Signs Not on file Plan of Treatment Health Maintenance Due Date Last Done Comments LIPID PANEL 2007 CERVICAL CANCER SCREENING PAP ONLY (Age 21-65) 2008 INFLUENZA VACCINE (#1) 2020 07/15/2017 Results Not on fileafter 08/05/2019 Insurance Payer Benefit Plan / Subscriber ID Effective Dates Phone Addre ss Type Group CIGNA - MGD CIGNA [id number] 2018-Present HMO/POS CARE HMO/POS/OPEN ACCESS Advance Directives For more information, please contact: [phone] Code Status Date Activated Date Inactivated Comments Full Code 03/01/2019 5:42 PM 03/04/2019 4:58 PM This code status was determined by: Patient
--- OUTSIDE RECORDS SUMMARY | 2020-08-05 01:35 | XMS REPORT | Continuity of Care Document ---
:1985 Author Organization [facility] t Address [address] [place] [address] Care Team Providers Name Role Phone Palma Evangelista MD Primary Care Physician Lab, Fam Pob I Attending Clinician Unavailable Pcp, Does Not Have A Attending Clinician NERIS Attending Clinician Unavailable NERIS Admitting Clinician Unavailable Problems Condition Condition Condition Status Onset Resolution Last Treating Co mments Source Name Details Category Date Date Treatment Clinician Date Right Right Disease Active 2019-[address] [facility] otitis [facility]itis 6[facility]17 [facility] extern[facility] extern[facility]: Medical 00 [place] Obesity Obesity Disease Active 2019-[address] [facility] 6[facility] - [facility] 00 [place] Right Right Disease Active 2019-[address] [facility] otitis otitis 6-17 [facility] media media 00:00: Medical 00 [place] Mastoiditi Mastoiditi Disease Active 2019-[address] s s 6-17 [facility] - 00:[facility]: Medical 00 [place] Allergies, Adverse Reactions, Alerts This patient has no known allergies or adverse reactions. Family History Family Member Diagnosis Comments Start Date Stop Date Source Natural father Diabetes [facility] Natural father Hyperlipidemia [facility] Natural father Hypertension [facility] Natural mother Cancer [facility] Natural mother Diabetes [facility] Natural mother Hypertension [facility] Social History Social Habit Start Date Stop Date Quantity Comments Source ASSERTION 2017-01-28 Ry Method ist 00:00:00 Sex Assigned At [facility] Tobacco use and 2019-03-01 2019-03-01 Never used [facility] - exposure 00:00:00 00:00:00 [facility] Alcohol intake 2017-05-08 2017-05-08 Current [facility] 00:00:00 00:00:00 non-drinker of alcohol (finding) Smoking Status Start Date Stop Date Source Never smoker [facility] Medications Ordered Filled Start Stop Current Ordering Indication Dosage Frequency Signature Comments Components Source Medication Medication Date Date Medication? Clinician (SIG) Name Name dextroamphe Yes Take by [facility] tamine/amph 6-20 mouth. [facility] - etamine 14:58: Medical ([facility]DERALL 04 Center ORAL) Procedures This patient has no known procedures. Plan of Care Planned Activity Planned Date Details Comments Source Future Scheduled 2020-05-16 [facility] (#1) [code = [facility] INFLUENZA VACCINE (#1)] Future Scheduled 2020-04-15 INFLUENZA VACCINE [facility] 00:00:00 [code = INFLUENZA VACCINE] Future Scheduled 2008 Screening for [facility]odist Test 00:00:00 malignant neoplasm of cervix (procedure) [code = 521834794] Future Scheduled 2008 Screening for [facility] es - Test 00:00:00 malignant neoplasm Medical C enter of cervix (procedure) [code = 042520056] Future Scheduled 2007 Lipid panel [facility] s - Test 00:00:00 (procedure) [code = [facility] 84181348] Encounters Start End Encounter Admission Attending Care Care Encounter Source Date/Time Date/Time Type Type Clinicians Facility Department ID 2020-07-26 2020-07-26 Laboratory Lab, Adc [facility] [id number] 09:02:18 09:22:18 Only Fam Pob I Health [id number] [place] [id number] Professio [phone] nal 0[address] 2020-07-26 2020-07-26 Letter Pcp, [facility] [id number] 00:00:00 00:00:00 (Out) Patient Health [id number] Does Not [place] [id number] Have A Professio [phone] nal 044 [address] One Results Test Description Test Time Test Comments Results Result Comments Source BLOOD CULTURE 2019-03-07 09:55:00 Test Item Value Reference Range Interpretation Comme nts CULTURE (BEAKER) (test code = 1095) No growth in 5 days BLOOD [id number] 20:01:00 Test Item Value Reference Range Interpretation Comments CULTURE (BEAKER) (test No growth in 5 days code = 1095) EAR CULTURE + GRAM [id number] 10:54:00 Test Item Value Reference Range Interpretation [...] gram variable (BEAKER) (test code = rods 034282) GRAM STAIN RESULT <1+ gram (BEAKER) (test code = positive cocci 645127) in pairs BASIC METABOLIC [id number] 06:46:00 Test Item Value Reference Range Interpretation [...] PATIEN TS. CBC W/PLT COUNT & AUTO [id number] 06:02:00 Test Item Value Reference Range Interpretation [...] code = 2801) URINALYSIS W/ REFLEX URINE [id number] 14:41:00 Test Item Value Reference Range Interpretation [...] SOURCE(BEAKER) (test code = 2795) BASIC METABOLIC [id number] 05:45:00 Test Item Value Reference Range Interpretation [...] PATIEN TS. CBC W/PLT COUNT & AUTO [id number] 05:11:00 Test Item Value Reference Range Interpretation [...] PERCENT (BEAKER) (test code = 2801) HEMOGLOBIN [id number] 13:15:00 Test Item Value Reference Range Interpretation Comments HEMOGLOBIN A1C (BEAKER) (test code = 5.6 % 4.3-6.1 368) BASIC METABOLIC [id number] 05:44:00 Test Item Value Reference Range Interpretation [...] S NOT APPLICABLE FOR DIALYSIS PATIEN TS. [id number] 05:16:00 Test Item Value Reference Range Interpretation [...] mechanical heart valves.CBC W/PLT COUNT & AUTO [id number] 05:13:00 Test Item Value Reference Range Interpretation [...] PERCENT (BEAKER) (test code = 2801) SCREEN, [id number] 20:10:00 Test Item Value Reference Range Interpretation Comments TEST URINE (BEAKER) (test Negative code = 583) BASIC METABOLIC [id number] 18:39:00 Test Item Value Reference Range Interpretation [...]
--- OUTSIDE RECORDS SUMMARY | 2020-08-05 01:35 | XMS REPORT | Clinical Summary ---
:1985 Author Organization [facility] Address [address] [place] [address] Care Team Providers Name Role Phone Rogelio Evangelista MD Primary Care Provider [phone] Allergies No Known Active Allergies Medications Not on file Active Problems Estimated Date of Delivery Comments Yes 10/21/2017 No additional problems on file Social History Tobacco Use Types Packs/Day Years Used Date Never Smoker Alcohol Use Drinks/Week oz/Week Comments No Estimated Date of Delivery Comments Yes 10/21/2017 Sex Assigned at Date Recorded Not on file Obstetrics History Grav Para Term Pre Abrt (TAB) (SAB) (Ect) Mult Lvng Comments 1 Date Outcome GA Total Labor/2nd/3rd Weight Sex Delivery Anes PTL Mayte A 1 A5 Name Clin Labor Current Last Filed Vital Signs Not on file Plan of Treatment Health Maintenance Due Date Last Done Comments CERVICAL CANCER SCREENING 2008 INFLUENZA VACCINE 04/15/2020 Results Not on fileafter 08/05/2019 [phone] (Work) Advance Directives For more information, please contact: [phone] Type Date Recorded 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
--- OUTSIDE RECORDS SUMMARY | 2020-08-05 01:36 | XMS REPORT | Summary of Care ---
:1985 Author Organization [facility] Address [address] [place] [address] Care Team Providers Name Role Phone Pcp, Does Not Have A Primary Care Provider Encounter Details Date Type Department Care Team Description 07/26/2020 Letter (Out) [facility] Family Pcp, Patient Does Not Medicine - [place] Have A [address] [place] [address] [address] [place] [address] [address] [place] [address] Allergies No Known Allergiesdocumented as of this encounter (statuses as of 07/26/2020) Medications Medication Sig Dispensed Refills Start Date End Date Status VIT-IRON 1 Tab Oral DAILY 30 3 03/16/2009 Active FUMARATE-FA 65-1 MG ORAL TAB DOCUSATE CALCIUM 240 1 Cap Oral QHSPRN 30 3 03/16/2009 Active MG ORAL CAP sulfamethoxazole-trime Take 1 Tab by 20 Tab 0 03/03/2015 Active thoprim (BACTRIM DS) mouth every 12 800-160 mg tablet (twelve) hours. 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 documented as of this encounter Last Filed Vital Signs Not on filedocumented in this encounter Plan of Treatment Date Type Specialty Care Team Description 07/26/2020 Laboratory Only Family Medicine Lucita Hickman , SANJAY [address] [place] [address] [place] [address] Exposure to Lab, Adc Fam Pob I SARS-associated coronavirus (Pr imary Dx) documented as of this encounter Results Not on filedocumented in this encounter Additional Health Concerns Infection Onset Date Last Indicated Resolved Time COVID-19 Rule Out 07/26/2020 07/26/2020 documented as of this encounter Insurance Payer Benefit Plan / Group Subscriber ID Effective Dates Phone Address Type MURTAZA HAUSER II [id number] 2019-Present H MO/PPO/POS documented as of this encounter
--- OUTSIDE RECORDS SUMMARY | 2020-08-05 01:36 | XMS REPORT | Summary of Care ---
:1985 Author Organization [facility] Address [address] [place] [address] Care Team Providers Name Role Phone Pcp, Does Not Have A Primary Care Provider Reason for Visit Reason Comments LAB Encounter Details Date Type Department Care Team Description 07/26/2020 Laboratory Only [facility] Family Vick, SANJAY Lee [address] [place] [address] [place] [phone] Exposure to Medicine - [facility], Adc Fam Pob I SARS-associated [address] [place] [address] coronavir[address] s ([address] Dx) [place] [phone] Allergies No Known Allergiesdocumented as of this [...] in contact with Yes 07/26/2020 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 documented as of this encounter Last Filed Vital Signs Not on filedocumented in this encounter Nursing Notes Dania Rodríguez, RICARDO - 07/26/2020 5:20 PM CSTSonmiguel Carrillo is a 34 year old female here for COVID Screening with a Nasopharyngeal Swab All droplet and contact precautions taken with appropriate PPE worn while interacting with patient. ? Goggles ? N95 Mask ? Gloves ? Gown RR 16 Pulse Ox 98% Patient educated on plan of care for visit, swabbing technique, risks and benefits of test and length of time to receive results. Verbal consent obtained to perform test. CDC Fact Sheet for Patients nCoV Diagnostic Panel dated 11/28/2019 and Factsheet What to Do if Sick with COVID 19 11/08/19 provided. Patient swabbed per appropriate nasopharyngeal technique, and patient tolerated well. Patient was discharged from the testing clinic in stable condition. Dania Rodríguez RN 07/26/2020 9:07 AM documented in this encounter Plan of Treatment Name Type Priority Associated Diagnoses Order S chedule COVID-19 (MOLECULAR LAB Routine Exposure to Expected : 07/26/2020, TESTING SARS-associated Expires: 021 NUCLEIC ACID coronavirus AMPLIFICATION) documented as of this encounter Results Not on filedocumented in this encounter Visit Diagnoses Diagnosis Exposure to SARS-associated coronavirus - Primary documented in this encounter Additional Health Concerns Infection Onset Date Last Indicated Resolved Time COVID-19 Rule Out 07/26/2020 07/26/2020 documented as of this encounter documented as of this encounter
[2020-08-05] MEDS ORDERED: MORPHINE 2 MG/ML SYR ONE (02:15)
[2020-08-05] MEDS ORDERED: FAMOTIDINE 20 MG/2 ML VIAL IV ONE (02:15)
[2020-08-05] MEDS ORDERED: ONDANSETRON 4 MG/2 ML VIAL ONE (02:15)
[2020-08-05 02:34] LABS: Absolute Lymphocytes (CBC) 1.3 K/uL (0.7-4.9); Basophils % 0.2 % (0-1.3); Hematocrit 35.6 % (36.0-45.0); Lymphocytes % 14.6 % (15.3-44.8); MPV 9.2 fL (7.6-11.3); RBC Red Blood Cell Count 3.96 M/uL (3.86-4.86)
[2020-08-05] MEDS ORDERED: NA CHLORIDE 0.9% 1,000 ML ONE ×2 (02:35→04:58)
[2020-08-05 02:47] LABS: ALT/SGPT 145 U/L (12-78); AST/SGOT 280 U/L (15-37); Albumin 3.7 g/dL (3.4-5.0); Alkaline Phosphatase 122 U/L (45-117); BUN Blood Urea Nitrogen 12 mg/dL (7-18); Bicarbonate 26 mmol/L (21-32); Bilirubin Direct 0.4 mg/dL (0-0.2); Bilirubin Total 0.9 mg/dL (0.2-1.0); Glucose Level 126 mg/dL (74-106); Lipase 1338 U/L (73-393); Potassium 3.6 mmol/L (3.5-5.1); Protein, Total 7.3 g/dL (6.4-8.2); Sodium Level 141 mmol/L (136-145)
[2020-08-05 02:50] LABS: Urine Blood NEGATIVE (NEG); Urine Glucose NEGATIVE (NEG); Urine Protein NEGATIVE (NEG)
[2020-08-05] MEDS ORDERED: PROMETHAZINE INJ 25 MG/ML AMP ONE (04:39)
[2020-08-05] MEDS ORDERED: MORPHINE 4 MG/ML SYR ONE (04:39)
--- NOTE | 2020-08-05 06:25 | ER ---
Nurse's Notes [facility] Name: Zehra Carrillo Age: 34 yrs Sex: Female : 1985 Arrival Date: 08/05/2020 Time: 01:35 Bed 16 Private MD: Diagnosis: Acute Pancreatitis;Choledocolithiasis Presentation: 08/05 01:46 Chief complaint: Patient states: severe abdominal pain started at approximately 2200. dm5 Pain is constant but then there are waves of more severe pain. Pt states that she has had a similar pain in the past that was related to her "gallbladder attack". Pt has had gallbladder removed. Coronavirus screen: Client denies travel out of the [place] in the last 14 days. nausea, Client presents with at least one sign or symptom that may indicate coronavirus-19. Standard/surgical mask placed on the client. Ebola Screen: Patient negative for fever greater than or equal to 101.5 degrees Fahrenheit, and additional compatible Ebola Virus Disease symptoms Patient denies exposure to infectious person. Patient denies travel to an Ebola-affected area in the 21 days before illness onset. No symptoms or risks identified at this time. Initial Sepsis Screen: Does the patient meet any 2 criteria? No. Patient's initial sepsis screen is negative. Does the patient have a suspected source of infection? No. Patient's initial sepsis screen is negative. Risk Assessment: Do you want to hurt yourself or someone else? Patient reports no desire to harm self or others. Onset of symptoms was August 05, 2020. 01:46 Method Of Arrival: Ambulatory dm5 01:46 Acuity: FRANCISCO 3 dm5 Historical: - Allergies: 01:52 No Known Allergies; dm5 - Home Meds: 01:52 None [Active]; dm5 - PMHx: 01:52 ADD/ADHD; constipation; dm5 - PSHx: 01:52 Cholecystectomy; Hernia repair; dm5 - Immunization history:: Adult Immunizations. - Social history:: Smoking status: Patient denies any tobacco usage or history of. Screenin:15 Abuse screen: Denies threats or abuse. Nutritional screening: No deficits noted. cr4 Tuberculosis screening: No symptoms or risk factors identified. Fall Risk None identified. Assessment: 01:53 General: Appears uncomfortable, well groomed, Behavior is calm, cooperative, cr4 appropriate for age. Pain: Complains of pain in upper abd Pain radiates to radiates accross upper abd. Pain currently is 4 out of 10 on a pain scale. at worst was 10 out of 10 on a pain scale. Pain began 4 hours ago. Is intermittent. Neuro: No deficits noted. Level of Consciousness is awake, alert, obeys commands, Oriented to person, place, time, Appropriate for age. Cardiovascular: No deficits noted. Respiratory: No deficits noted. Airway is patent Trachea midline Respiratory effort is even, unlabored, Respiratory pattern is regular, Breath sounds are clear bilaterally. GI: Bowel sounds present X 4 quads. Abd is soft and non tender X 4 quads. Reports upper abdominal pain, nausea, Patient currently denies vomiting. : Denies burning with urination, discharge. EENT: No deficits noted. Derm: No deficits noted. Musculoskeletal: No deficits noted. 03:30 Reassessment: Patient and/or family updated on plan of care and expected duration. Pain cr4 level reassessed. Patient is alert, oriented x 3, equal unlabored respirations, skin warm/dry/pink. Patient states feeling better. 04:23 Reassessment: Patient and/or family updated on plan of care and expected duration. Pain cr4 level reassessed. Patient is alert, oriented x 3, equal unlabored respirations, skin warm/dry/pink. reports pain increasing again. Ed Burden to speak w/the patient.. 05:15 Reassessment: Patient and/or family updated on plan of care and expected duration. Pain cr4 level reassessed. Patient is alert, oriented x 3, equal unlabored respirations, skin warm/dry/pink. Patient states feeling better. 06:15 Reassessment: Patient and/or family updated on plan of care and expected duration. Pain cr4 level reassessed. Patient is alert, oriented x 3, equal unlabored respirations, skin warm/dry/pink. 07:31 Reassessment: night nurse reports she was unable to give report because it was during em shift change. 08:10 Reassessment: report given to RICARDO Calderon at [facility], pending EMS em transportation. 08:47 Reassessment: report given to EMS, pt reports pain is coming back, rates pain 04/24, em Dr. Rittger notified, received VO for 25 mcg fentanyl IVP x 1. Vital Signs: 01:52 BP 110 / 77; Pulse 84; Resp 18; Temp 98.4; Pulse Ox 98% ; Pain 4/10; cr4 03:31 Pain 4/10; cr4 04:21 BP 105 / 72; Pulse 62; Resp 18; Pulse Ox 98% ; Pain 6/10; cr4 05:00 BP 106 / 77; Pulse 62; Resp 18; Temp 98.4; Pulse Ox 100% ; Pain 4/10; cr4 06:13 BP 105 / 69; Pulse 74; Resp 18; Pulse Ox 99% ; Pain 4/10; cr4 07:31 BP 106 / 73; Pulse 76; Resp 18; Pulse Ox 99% on R/A; Pain 6/10; em ED Course: 01:35 Patient arrived in ED. ag3 01:44 Brayan Platt MD is Attending Physician. mh7 01:51 Triage completed. dm5 01:52 Ирина Brown, RICARDO is Primary Nurse. cr4 01:52 Arm band placed on Patient placed in an exam room. dm5 02:14 Inserted saline lock: 20 gauge in left antecubital area, using aseptic technique. cr4 03:23 CT Abd/Pelvis - IV Contrast Only In Process Unspecified. EDMS 05:15 Patient has correct armband on for positive identification. Bed in low position. Side cr4 rails up X2. 05:34 initiated transfer with Kezia Martinez from [facility]. mw2 05:55 doc to doc with the GI doctor from [facility]. Doctor from [facility] stated that GI mw2 won't be able to help patient until Friday. 05:57 initiated transfer with Elizabeth from [facility]. mw2 06:13 doc to doc with the GI doctor from [facility]. mw2 06:15 Door closed. Lights dimmed. cr4 06:30 administrative approval given by Jeanie Larios/ patient has been accepted to [address] 4th floor/ Dr. Rodriguez has accepted the patient in transfer/ report to be called to [phone]. 08:56 No provider procedures requiring assistance completed. Patient admitted, IV remains in em place. Administered Medications: 02:20 Drug: morphine 2 mg Route: IVP; Site: left antecubital; cr4 03:00 Follow up: Response: No adverse reaction; Pain is decreased cr4 03:31 Follow up: Pain 4/10 Adult; Response: Pain is decreased cr4 02:20 Drug: Zofran (Ondansetron) 4 mg Route: IVP; Site: left antecubital; cr4 03:00 Follow up: Response: No adverse reaction; Pain is decreased cr4 03:31 Follow up: Response: No adverse reaction; Nausea is decreased cr4 02:20 Drug: Pepcid 20 mg Route: IVP; Site: left antecubital; cr4 03:00 Follow up: Response: No adverse reaction cr4 02:26 Drug: NS 0.9% 1000 ml Route: IV; Rate: 1000 ml; Site: left antecubital; cr4 03:30 Follow up: IV Status: Completed infusion; IV Intake: 1000ml cr4 04:30 Drug: morphine 4 mg Route: IVP; Site: left antecubital; cr4 05:00 Follow up: Response: Pain is decreased cr4 04:30 Drug: Phenergan 12.5 mg Route: IVP; Site: left antecubital; cr4 05:00 Follow up: Response: No adverse reaction; Nausea is decreased cr4 04:51 Drug: NS 0.9% 1000 ml Route: IV; Rate: 1000 ml; Site: left antecubital; cr4 06:11 Follow up: IV Status: Completed infusion; IV Intake: 100ml cr4 08:56 Drug: fentaNYL (PF) 25 mcg Route: IVP; Site: left antecubital; em Intake: 03:30 IV: 1000ml; Total: 1000ml. cr4 06:11 IV: 100ml; Total: 1100ml. cr4 Outcome: 06:24 ER care complete, transfer ordered by MD. coker 08:56 Transferred by ground EMS to [facility], Transfer form completed. X-rays sent em w/ patient. 08:56 Condition: stable 08:56 Instructed on the need for transfer, Demonstrated understanding of instructions. 09:00 Patient left the ED. em Signatures: Dispatcher MedHo Naima Montoya RN RN dm5 Munoz, Edgar RN RICARDO em Ирина Brown RN RN cr4 Selma Bojorquez mw2 Sandra Carlisle ag3 Brayan Platt, ID [id number]
--- NOTE | 2020-08-05 06:25 | EDPHYS ---
Physician Documentation [facility] Name: Zehra Carrillo Age: 34 yrs Sex: Female : 1985 Arrival Date: 08/05/2020 Time: 01:35 Bed 16 Private MD: ED Physician Brayan Platt HPI: 08/05 02:10 This 34 yrs old Female presents to ER via Ambulatory with complaints of mh7 Abdominal Pain. 02:10 The patient presents with abdominal pain in the upper abdomen. Onset: The mh7 symptoms/episode began/occurred last night, at 22:00. The symptoms do not radiate. 02:11 Associated signs and symptoms: Pertinent positives: nausea, Pertinent negatives: mh7 anorexia, blood in stools, chest pain, constipation, diarrhea, dysuria, fever, headache, hematuria, palpitations, shortness of breath, vaginal discharge, vomiting, vomiting blood. The symptoms are described as intermittent, vague, waxing/waning. Modifying factors: The symptoms are alleviated by nothing, the symptoms are aggravated by nothing. Severity of pain: At its worst the pain was moderate last night, in the emergency department the pain is unchanged. Historical: - Allergies: 01:52 No Known Allergies; dm5 - Home Meds: 01:52 None [Active]; dm5 - PMHx: 01:52 ADD/ADHD; constipation; dm5 - PSHx: 01:52 Cholecystectomy; Hernia repair; dm5 - Immunization history:: Adult Immunizations. - Social history:: Smoking status: Patient denies any tobacco usage or history of. ROS: 02:11 Constitutional: Negative for fever, chills, and weight loss, Eyes: Negative for injury, mh7 pain, redness, and discharge, ENT: Negative for injury, pain, and discharge, Neck: Negative for injury, pain, and swelling, Cardiovascular: Negative for chest pain, palpitations, and edema, Respiratory: Negative for shortness of breath, cough, wheezing, and pleuritic chest pain, Back: Negative for injury and pain, : Negative for injury, bleeding, discharge, and swelling, MS/Extremity: Negative for injury and deformity, Skin: Negative for injury, rash, and discoloration, Neuro: Negative for headache, weakness, numbness, tingling, and seizure, Psych: Negative for depression, anxiety, suicide ideation, homicidal ideation, and hallucinations, Allergy/Immunology: Negative for hives, rash, and allergies, Endocrine: Negative for neck swelling, polydipsia, polyuria, polyphagia, and marked weight changes, Hematologic/Lymphatic: Negative for swollen nodes, abnormal bleeding, and unusual bruising. Exam: 02:11 Head/Face: Normocephalic, atraumatic. Eyes: Pupils equal round and reactive to light, mh7 extra-ocular motions intact. Lids and lashes normal. Conjunctiva and sclera are non-icteric and not injected. Cornea within normal limits. Periorbital areas with no swelling, redness, or edema. Neck: Trachea midline, no thyromegaly or masses palpated, and no cervical lymphadenopathy. Supple, full range of motion without nuchal rigidity, or vertebral point tenderness. No Meningismus. Chest/axilla: Normal chest wall appearance and motion. Nontender with no deformity. No lesions are appreciated. Cardiovascular: Regular rate and rhythm with a normal S1 and S2. No gallops, murmurs, or rubs. Normal PMI, no JVD. No pulse deficits. Respiratory: Lungs have equal breath sounds bilaterally, clear to auscultation and percussion. No rales, rhonchi or wheezes noted. No increased work of breathing, no retractions or nasal flaring. 02:11 Back: No spinal tenderness. No costovertebral tenderness. Full range of motion. Skin: Warm, dry with normal turgor. Normal color with no rashes, no lesions, and no evidence of cellulitis. MS/ Extremity: Pulses equal, no cyanosis. Neurovascular intact. Full, normal range of motion. Neuro: Awake and alert, GCS 15, oriented to person, place, time, and situation. Cranial nerves II-XII grossly intact. Motor strength 5/5 in all extremities. Sensory grossly intact. Cerebellar exam normal. Normal gait. Psych: Awake, alert, with orientation to person, place and time. Behavior, mood, and affect are within normal limits. 02:11 Constitutional: The patient appears in no acute distress, alert, awake, uncomfortable. 02:11 Abdomen/GI: Inspection: abdomen appears normal, scar(s), are noted in the right upper quadrant, Bowel sounds: Palpation: moderate abdominal tenderness, in the epigastric area, right upper quadrant and left upper quadrant, Rectal exam: the exam is deferred, because of patient request, Indicators: McBurney's point is not tender, Morales's sign is negative, Rovsing's sign is negative, Obturator sign is negative, Psoas sign is negative, Liver: no appreciated palpable abnormalities, Hernia: not appreciated. Vital Signs: 01:52 BP 110 / 77; Pulse 84; Resp 18; Temp 98.4; Pulse Ox 98% ; Pain 4/10; cr4 03:31 Pain 4/10; cr4 04:21 BP 105 / 72; Pulse 62; Resp 18; Pulse Ox 98% ; Pain 6/10; cr4 05:00 BP 106 / 77; Pulse 62; Resp 18; Temp 98.4; Pulse Ox 100% ; Pain 4/10; cr4 06:13 BP 105 / 69; Pulse 74; Resp 18; Pulse Ox 99% ; Pain 4/10; cr4 07:31 BP 106 / 73; Pulse 76; Resp 18; Pulse Ox 99% on R/A; Pain 6/10; em MDM: 06:21 Differential diagnosis: bowel obstruction, diverticulitis, gastritis, gastroesophageal mh7 reflux disease, non-specific abd pain, pancreatitis, Pyelonephritis, urinary tract infection, Choledocolithiasis. Data reviewed: vital signs, nurses notes, lab test result(s), CBC, electrolytes, urinalysis, radiologic studies, CT scan. Data interpreted: Pulse oximetry: on room air is 99 %. Interpretation: normal. Counseling: I had a detailed discussion with the patient and/or guardian regarding: the historical points, exam findings, and any diagnostic results supporting the discharge/admit diagnosis, lab results, radiology results, the need to transfer to another facility, [facility] does not immediately have the required specialist. Response to treatment: the patient's symptoms have mildly improved after treatment. 06:24 Patient medically screened. [facility] 08/05 02:02 Order name: Basic Metabolic Panel; Complete Time: :49 [facility] 08/05 02:02 Order name: CBC with Diff; Complete Time: :49 [facility] 08/05 02:02 Order name: Hepatic Function; Complete Time: 02:49 [facility] 08/05 02:02 Order name: Lipase; Complete Time: :49 [facility] 08/05 02:39 Order name: Urine Dipstick--Ancillary (enter results); Complete Time: 02:52 [facility] 08/05 02:39 Order name: Urine --Ancillary (enter results); Complete Time: 02:52 [facility] 08/05 02:53 Order name: CT Abd/Pelvis - IV Contrast Only [facility] 08/05 04:02 Order name: Amylase, Serum; Complete Time: 04:31 [facility] 08/05 07:06 Order name: SARS-COV-2 RT PCR [facility] 08/05 02:02 Order name: IV Saline Lock; Complete Time: 02:15 [facility] 08/05 02:02 Order name: Labs collected and sent; Complete Time: 02:26 [facility] 08/05 02:02 Order name: Urine Dipstick-Ancillary (obtain specimen); Complete Time: 02:41 [facility] 08/05 02:02 Order name: Urine Test (obtain specimen); Complete Time: 02:41 [facility] Administered Medications: 02:20 Drug: morphine 2 mg Route: IVP; Site: left antecubital; cr4 03:00 Follow up: Response: No adverse reaction; Pain is decreased cr4 03:31 Follow up: Pain 10 Adult; Response: Pain is decreased cr4 02:20 Drug: Zofran (Ondansetron) 4 mg Route: IVP; Site: left antecubital; cr4 03:00 Follow up: Response: No adverse reaction; Pain is decreased cr4 03:31 Follow up: Response: No adverse reaction; Nausea is decreased cr4 02:20 Drug: Pepcid 20 mg Route: IVP; Site: left antecubital; cr4 03:00 Follow up: Response: No adverse reaction cr4 02:26 Drug: NS 0.9% 1000 ml Route: IV; Rate: 1000 ml; Site: left antecubital; cr4 03:30 Follow up: IV Status: Completed infusion; IV Intake: 1000ml cr4 04:30 Drug: morphine 4 mg Route: IVP; Site: left antecubital; cr4 05:00 Follow up: Response: Pain is decreased cr4 04:30 Drug: Phenergan 12.5 mg Route: IVP; Site: left antecubital; cr4 05:00 Follow up: Response: No adverse reaction; Nausea is decreased cr4 04:51 Drug: NS 0.9% 1000 ml Route: IV; Rate: 1000 ml; Site: left antecubital; cr4 06:11 Follow up: IV Status: Completed infusion; IV Intake: 100ml cr4 08:56 Drug: fentaNYL (PF) 25 mcg Route: IVP; Site: left antecubital; em Disposition: 08/05/20 06:24 Transfer ordered to [facility]. Diagnosis are Acute Pancreatitis, Choledocolithiasis. - Reason for transfer: Higher level of care. - Accepting physician is Dr. Donnelly. - Condition is Stable. - Problem is new. - Symptoms have improved. Signatures: Dispatcher [employer] EDOR Naima Rivera, RN RN dm5 Dontrell Agarwal, RN RN Ирина Carey RN RN cr4 Brayan Platt MD MD 7 Corrections: (The following items were deleted from the chart) 02:13 02:10 Associated signs and symptoms: Pertinent negatives: nausea, mh7 7 05:45 05:06 CORONAVIRUS+MR.LAB.BRZ ordered. [facility] 09:00 06:24 08/05/2020 06:24 Transfer ordered to [facility]. Diagnosis is Acute em Pancreatitis; Choledocolithiasis. Reason for transfer: Higher level of care. Accepting physician is Dr. Donnelly. Condition is Stable. Problem is new. Symptoms have improved. 7
[2020-08-05] MEDS ORDERED: FENTANYL CITR 100 MCG/2 ML ONE (09:03)
[2020-08-05 15:55] VITALS: TEMP 98.4
[2020-08-05 16:01] VITALS: O2SAT 99
[2020-08-05 16:03] VITALS: BP 106/73
--- NOTE | 2020-08-07 10:59 | RAD REPORT ---
EXAM DESCRIPTION: CT - Abdomen Pelvis W Contrast - 08/05/2020 7:14 am CLINICAL HISTORY: ABD PAIN TECHNIQUE: Contiguous axial images obtained through the abdomen and pelvis following the uneventful administration of IV contrast. Coronal and sagittal reformatted images were provided. This exam was performed according to our departmental dose-optimization program, which includes autom ated exposure control, adjustment of the mA and/or kV according to patient size and/or use of iterati ve reconstruction technique. COMPARISON: 03/12/2020 FINDINGS: Lung bases: Clear Liver: The liver is enlarged. Gallbladder and biliary system: Interval cholecystectomy. Pancreas: The pancreas appears somewhat indistinct. Spleen: Unremarkable Adrenals: Unremarkable Kidneys: Normal renal cortical enhancement. No calculi. No hydronephrosis. Bowel: Prior gastric sleeve. Moderate stool. No obstruction. No appreciable mucosal thickening. Appendix: Normal caliber appendix. No findings to suggest acute appendicitis. Urinary bladder: Unremarkable Reproductive: 1.6 cm left ovarian corpus luteal cyst. Intrauterine device in place. The right ovary i s unremarkable as visualized. Lymph nodes: No pathologically enlarged lymph nodes. Peritoneum: Small amount of free fluid within the cul-de-sac. No free air. Vessels: No abdominal aortic aneurysm. Abdominal wall: Small fat-containing umbilical hernia. Bones: Unremarkable IMPRESSION: 1. The pancreas appears somewhat indistinct. Consider laboratory correlation for acute pancreatitis. 2. 1.6 cm left ovarian corpus luteum cyst. No follow-up imaging is recommended. Reference: J Am C oll Radiol 2013;10:675-681 3. Other findings as above. Electronically signed by: Alvin Winter MD 08/05/2020 3:51 AM [facility] Due to temporary technical issues with the PACS/Fluency reporting system, reports are being signed by the in house radiologist without review as a courtesy to ensure prompt reporting. The interpreting r adiologist is fully responsible for the content of the report.
== END 2020-08-05 09:00 | disposition short-term general hospital (02) ==
LOC: ER 01:33
DX: K85.90 Acute pancreatitis without necrosis or infection, unspecified (principal); K80.50 Calculus of bile duct without cholangitis or cholecystitis without obstruction; Z20.828 Contact with and (suspected) exposure to other viral communicable diseases
CPT/HCPCS: 96361; 85025; 80048; 36415; 82150; 81025; 80076; 81003; 83690; 74177; 96375; 96374; 99285; U0003; Q9967; J2550; J3010; J2270; J7030 ×2; J2405

== ENCOUNTER 2021-03-13 21:21 | Emergency (ER) | payer OTHER ==
--- OUTSIDE RECORDS SUMMARY | 2021-03-13 21:24 | XMS REPORT | Continuity of Care Document ---
:1985 Author Organization [facility] t Address [address] [place] [address] Care Team Providers Name Role Phone Palma Evangelista MD Primary Care Physician Neville SILVA Attending Clinician Unavailable Lab, Fam Pob I Attending Clinician Unavailable Pcp, Does Not Have A Attending Clinician NERIS Attending Clinician Unavailable NERIS Admitting Clinician Unavailable Payers Payer Name Policy Type Policy Number Effective Date Expiration Date Chuck monk CIG[employer] - MGD [id number] [address] [facility] CARECIGNA 00:00:00 - Medical HMO/POS/OPEN Center [id number] 2019-Presen tHMO/POS Problems Condition Condition Condition Status Onset Resolution Last Treating Co mments Source Name Details Category Date Date Treatment Clinician Date Right Right Disease Active [facility] extern[facility] externa [facility] Center Infection Infection Disease Active [facility] of right of right 6[facility] - mastoid mastoid 00:00: Medical bone bone 00 Center Obesity Obesity Disease [facility] - [facility] Right Right Disease Active 2018- [facility] - media media 00:00: Medical Center Allergies, Adverse Reactions, Alerts This patient has no known allergies or adverse reactions. Family History Family Member Diagnosis Comments Start Date Stop Date Source Natural father Diabetes [facility] Natural father Hyperlipidemia [facility] Natural father Hypertension [facility] Natural mother Cancer [facility] Natural mother Diabetes [facility] Natural mother Hypertension [facility] Social History Social Habit Start Date Stop Date Quantity Comments Source ASSERTION 2017-01-28 [facility] 00:00:00 Tobacco use and 2019-03-01 2019-03-01 Never used [facility] kes - exposure 00:00:00 00:00:00 [facility] Alcohol intake 2017-05-08 2017-05-08 Current [facility] thodist 00:00:00 00:00:00 non-drinker of alcohol (finding) Sex Ass[birth year] [facility] ethodist 00:00:00 00:00:00 Smoking Status Start Date Stop Date Source Never smoker [facility] Medications Ordered Filled Start Stop Current Ordering Indication Dosage Frequency Signature Comments Components Source Medication Medication Date Date Medication? Clinician (SIG) Name Name dextroamphe Yes Take by [facility] tamine/amph 6-20 [facility]. [facility] - etamine 14:58: Medical ([facility] Center ORAL) Procedures This patient has no known procedures. Plan of Care Planned Activity Planned Date Details Comments Source Future Scheduled 2021-04-15 INFLUENZA VACCINE [facility] 00:00:00 [code = INFLUENZA VACCINE] Future Scheduled 2020-05-16 INFLUENZA VACCINE [facility] Test 00:00:00 (#1) [code = [facility] INFLUENZA VACCINE (#1)] Future Scheduled 2008 Screening for [facility]odist Test 00:00:00 malignant neoplasm of cervix (procedure) [code = 398090343] Future Scheduled 2008 Screening for [facility] - Test 00:00:00 malignant neoplasm Medical C enter of cervix (procedure) [code = 025424327] Future Scheduled 2007 Lipid panel [facility] Test 00:00:00 (procedure) [code = [facility] 51506725] Future Scheduled 1999 COVID-19 VACCINE [facility] 00:00:00 (1) [code = COVID-19 VACCINE (1)] Encounters Start End Encounter Admission Attending Care Care Encounter Source Date/Time Date/Time Type Type Clinicians Facility Department ID 2020-10-24 2020-10-24 Telephone JESSICA Lozada [id number] 00:00:00 00:00:00 Anibal KYLEE [id number] [facility] [id number] 2020-07-26 2020-07-26 Laboratory Lab, [facility] [id number] 09:02:18 09:22:18 Only Fam Pob I Health [id number] [place] [id number] Professio [phone] nal [address] 2020-07-26 2020-07-26 Letter Pcp, [facility] [id number] 00:00:00 00:00:00 (Out) Patient Health [id number] Does Not [place] [id number] Have A Professio [phone] nal 044 [address] One Results Test Description Test Time Test Comments Results Result Comments Source BLOOD CULTURE 2019-03-07 09:55:00 Test Item Value Reference Range Interpretation Comme nts CULTURE (BEAKER) (test code = 1095) No growth in 5 days BLOOD [id number] 20:01:00 Test Item Value Reference Range Interpretation Comments CULTURE (BEAKER) (test No growth in 5 days code = 1095) EAR CULTURE + GRAM [id number] 10:54:00 Test Item Value Reference Range Interpretation [...] gram variable (BEAKER) (test code = rods 872132) GRAM STAIN RESULT <1+ gram (BEAKER) (test code = positive cocci 889771) in pairs BASIC METABOLIC [id number] 06:46:00 Test Item Value Reference Range Interpretation [...] PATIEN TS. CBC W/PLT COUNT & AUTO [id number] 06:02:00 Test Item Value Reference Range Interpretation [...] code = 2801) URINALYSIS W/ REFLEX URINE [id number] 14:41:00 Test Item Value Reference Range Interpretation [...] code = 516) SOURCE(BEAKER) (test code = 4575) BASIC METABOLIC [id number] 05:45:00 Test Item Value Reference Range Interpretation [...] PATIEN TS. CBC W/PLT COUNT & AUTO [id number] 05:11:00 Test Item Value Reference Range Interpretation [...] PERCENT (BEAKER) (test code = 2801) HEMOGLOBIN [id number] 13:15:00 Test Item Value Reference Range Interpretation Comments HEMOGLOBIN A1C (BEAKER) (test code = 5.6 % 4.3-6.1 368) BASIC METABOLIC [id number] 05:44:00 Test Item Value Reference Range Interpretation [...] S NOT APPLICABLE FOR DIALYSIS PATIEN TS. [id number] 05:16:00 Test Item Value Reference Range Interpretation [...] mechanical heart valves.CBC W/PLT COUNT & AUTO [id number] 05:13:00 Test Item Value Reference Range Interpretation [...] PERCENT (BEAKER) (test code = 2801) SCREEN, [id number] 20:10:00 Test Item Value Reference Range Interpretation Comments TEST URINE (BEAKER) (test Negative code = 583) BASIC METABOLIC [id number] 18:39:00 Test Item Value Reference Range Interpretation [...] GFR I S NOT APPLICABLE FOR DIALYSIS PATIFAUZIA MENDOZA.
[2021-03-13] MEDS ORDERED: LIDOCAINE 1% MPF 30 ML VIAL ONE (22:23)
[2021-03-13] MEDS ORDERED: HYDROCODONE/APAP 7.5/325 MG TAB ONE (22:23)
--- NOTE | 2021-03-13 23:44 | EDPHYS ---
Physician Documentation [facility] Name: Zehra Carrillo Age: 35 yrs Sex: Female : 1985 Arrival Date: 03/13/2021 Time: 21:24 Bed 26 Private MD: Go Evangelista E ED Physician Nunu Fournier HPI: 03/13 22:00 This 35 yrs old Female presents to ER via Ambulatory with complaints of Foot cp Injury. 22:00 The patient presents with a contusion, an injury, pain, that is acute. The complaints cp affect the right great toe. SCHEDULING SPECIALIST: 21:42 LMP 03/04/2021 ea Historical: - Allergies: 21:41 No Known Allergies; ea - PMHx: 21:41 ADD/ADHD; constipation; ea 21:41 Pancreatitis; ea - PSHx: 21:41 Cholecystectomy; ea - Immunization history:: Adult Immunizations up to date. - Social history:: Smoking status: Patient denies any tobacco usage or history of. ROS: 22:05 Constitutional: Negative for body aches, chills, fever, poor PO intake. cp 22:05 : Positive for injury or acute deformity, of the right great toe. 22:05 All other systems are negative. Exam: 22:10 Constitutional: The patient appears in no acute distress, alert, awake, non-toxic, well cp developed, well nourished, uncomfortable. 22:10 Head/Face: Normocephalic, atraumatic. cp 22:10 Chest/axilla: Inspection: normal. 22:10 Cardiovascular: Rate: normal. 22:10 Respiratory: the patient does not display signs of respiratory distress, Respirations: normal, no use of accessory muscles, no retractions. 22:10 Musculoskeletal/extremity: Extremities: grossly normal except: noted in the right great toe: pain, swelling, tenderness, Perfusion: the extremity is normally perfused throughout, Severe pain noted. Nails: partial avulsion, right great toe. Vital Signs: 21:40 BP 121 / 83; Pulse 80; Resp 19; Temp 98; Pulse Ox 100% ; Weight 72.57 kg; Height 5 ft. ea 6 in. (167.64 cm); 21:55 BP 121 / 83; Pulse 87; Resp 18; Pulse Ox 100% on R/A; Pain 9/10; ld1 23:41 BP 126 / 88; Pulse 89; Resp 18; Pulse Ox 100% ; ld1 21:40 Body Mass Index 25.82 (72.57 kg, 167.64 cm) ea MDM: 21:35 Patient medically screened. cp 22:10 Differential diagnosis: dislocation, open fracture, closed fracture, contusion. cp 23:42 Data reviewed: vital signs, nurses notes, radiologic studies, plain films. cp 23:42 Test interpretation: by ED physician or midlevel provider: plain radiologic studies. cp Counseling: I had a detailed discussion with the patient and/or guardian regarding: the historical points, exam findings, and any diagnostic results supporting the discharge/admit diagnosis, radiology results, the need for outpatient follow up, a family practitioner, to return to the emergency department if symptoms worsen or persist or if there are any questions or concerns that arise at home. Response to treatment: the patient's symptoms have markedly improved after treatment, and as a result, I will discharge patient. 03/13 21:42 Order name: Foot Right 3 View XRAY em 03/13 22:19 Order name: Dressing - Wound; Complete Time: 00:10 cp 03/13 22:19 Order name: Gloves, Sterile; Complete Time: 22:43 cp 03/13 22:19 Order name: Setup Suture Tray; Complete Time: 22:43 cp 03/13 23:42 Order name: Wound dressing; Complete Time: 23:54 cp 03/13 23:42 Order name: Post-op Orthopedic Shoe; Complete Time: 23:54 cp Administered Medications: 22:03 Drug: Hydrocodone-Acetaminophen (7.5 mg-325 mg) 1 tabs Route: PO; ld1 23:00 Follow up: Response: No adverse reaction; Marked relief of symptoms; Pain is decreased em 22:42 Drug: Lidocaine (1 %) 10 ml {Note: administered by PA. Anibal} Volume: 20 ml; Route: em Infiltration; Site: wound; 03/14 00:10 Follow up: Response: No adverse reaction; Marked relief of symptoms; Pain is decreased em 03/13 22:43 Drug: Marcaine (bupivacaine) (0.5 %) 10 ml {Note: administered by PA. Anibal} Volume: em 10 ml; Route: Infiltration; Site: wound; 23:00 Follow up: Response: No adverse reaction; Marked relief of symptoms; Pain is decreased em Disposition: 03/14 19:58 Co-signature as Attending Physician, Nunu Fournier MD. ma2 Disposition Summary: 03/13/21 23:43 Discharge Ordered Location: Home cp Problem: new cp Symptoms: have improved cp Condition: Stable cp Diagnosis - Contusion of right great toe with damage to nail cp Followup: cp - With: Private Physician - When: 10 - 14 days - Reason: Staple/Suture removal Discharge Instructions: - Discharge Summary Sheet cp - Nail Avulsion cp - Fingernail or Toenail Removal, Adult cp Forms: - Medication Reconciliation Form cp - Thank You Letter cp - Antibiotic Education cp - Prescription Opioid Use cp Prescriptions: - Cephalexin 500 mg Oral Capsule - take 1 capsule by ORAL route every 6 hours for 10 days; 40 capsule; Refills: 0, cp Product Selection Permitted - Ibuprofen 800 mg Oral Tablet - take 1 tablet by ORAL route every 8 hours As needed take with food; 30 tablet; cp Refills: 0, Product Selection Permitted - Tramadol 50 mg Oral Tablet - take 1 tablet by ORAL route every 8 hours as needed; 20 tablet; Refills: 0, cp Product Selection Permitted Signatures: Dispatcher [employer] Dontrell Dodson RN RN em Page, Corey, PA PA cp Antunez, Elena, RN RN ea Alzahri, Mohammad, MD MD ma2 Lary Colvin RN RN ld1 Corrections: (The following items were deleted from the chart) 01:03/13 23:05 : Positive for injury or acute deformity, of the right great toe, cp cp 03/14 01:03/13 23:05 Constitutional: Negative for body aches, chills, fever, poor PO intake, cp cp 03/14 01:03/13 23:05 All other systems are negative, cp cp
--- NOTE | 2021-03-13 23:44 | ER ---
Nurse's Notes [facility] Name: Zehra Carrillo Age: 35 yrs Sex: Female : 1985 Arrival Date: 03/13/2021 Time: 21:24 Bed 26 Private MD: Go Evangelista E Diagnosis: Contusion of right great toe with damage to nail Presentation: 03/13 21:40 Chief complaint: Patient states: Reports she ran into the tub with her foot about ea thirty min ago. Pt reports laceration to big right toe. Coronavirus screen: At this time, the client does not indicate any symptoms associated with coronavirus-19. Ebola Screen: No symptoms or risks identified at this time. Initial Sepsis Screen: Does the patient meet any 2 criteria? No. Patient's initial sepsis screen is negative. Does the patient have a suspected source of infection? No. Patient's initial sepsis screen is negative. Risk Assessment: Do you want to hurt yourself or someone else? Patient reports no desire to harm self or others. Onset of symptoms was March 13, 2021. 21:40 Method Of Arrival: Ambulatory ea 21:40 Acuity: FRANCISCO 3 ea Triage Assessment: 21:43 General: Appears uncomfortable, Behavior is appropriate for age. Pain: Complains of ea pain in Right first toenail. Musculoskeletal: Circulation, motion, and sensation intact. Injury Description: Laceration. 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 - Social history:: Smoking status: Patient denies any tobacco usage or history of. Screenin:41 Abuse screen: Denies threats or abuse. Nutritional screening: No deficits noted. ea Tuberculosis screening: No symptoms or risk factors identified. Fall Risk None identified. Assessment: 21:55 General: Appears in no apparent distress. comfortable, Behavior is calm, cooperative, ld1 appropriate for age. Pain: Complains of pain in Right first toenail Pain does not radiate. Pain currently is 9 out of 10 on a pain scale. Quality of pain is described as throbbing, pulsating, Pain began 1 hour ago. Is continuous. Neuro: Level of Consciousness is awake, alert, obeys commands, Oriented to person, place, time, situation. Cardiovascular: Capillary refill < 3 seconds Patient's skin is warm and dry. Respiratory: Airway is patent Respiratory effort is even, unlabored, Respiratory pattern is regular, symmetrical. GI: Abdomen is flat, non-distended. : No signs and/or symptoms were reported regarding the genitourinary system. EENT: No signs and/or symptoms were reported regarding the EENT system. Derm: No signs and/or symptoms reported regarding the dermatologic system. Musculoskeletal: No signs and/or symptoms reported regarding the musculoskeletal system. Injury Description: Pt states she was getting out of the shower and kicked the edge of the bathtub with her right foot. Pt reports pulsating/throbbing in right great toe. 23:41 Reassessment: Patient appears in no apparent distress at this time. Patient is alert, ld1 oriented x 3, equal unlabored respirations, skin warm/dry/pink. Vital Signs: 21:40 BP 121 / 83; Pulse 80; Resp 19; Temp 98; Pulse Ox 100% ; Weight 72.57 kg; Height 5 ft. ea 6 in. (167.64 cm); 21:55 BP 121 / 83; Pulse 87; Resp 18; Pulse Ox 100% on R/A; Pain 9/10; ld1 23:41 BP 126 / 88; Pulse 89; Resp 18; Pulse Ox 100% ; ld1 21:40 Body Mass Index 25.82 (72.57 kg, 167.64 cm) ea ED Course: 21:24 Patient arrived in ED. es 21:24 Go Evangelista MD is Private Physician. es 21:35 Anibal Varner PA is PHCP. cp 21:35 Nunu Fournier MD is Attending Physician. cp 21:37 Lary Colvin RN is Primary Nurse. ld1 21:41 Triage completed. ea 21:41 Patient has correct armband on for positive identification. Bed in low position. Call ea light in reach. Side rails up X2. 21:42 Arm band placed on right wrist. Patient placed in an exam room, on a stretcher, on ea pulse oximetry. 22:13 Foot Right 3 View XRAY In Process Unspecified. EDMS 23:30 Assist provider with laceration repair on right foot using sutures. Set up tray. em Performed by Anibal GRACE Dressed with 4X4s, Fortunato, Neosporin, Patient tolerated well. 03/14 00:12 Patient did not have IV access during this emergency room visit. em Administered Medications: 03/13 22:03 Drug: Hydrocodone-Acetaminophen (7.5 mg-325 mg) 1 tabs Route: PO; ld1 23:00 Follow up: Response: No adverse reaction; Marked relief of symptoms; Pain is decreased em 22:42 Drug: Lidocaine (1 %) 10 ml {Note: administered by PA. Anibal} Volume: 20 ml; Route: em Infiltration; Site: wound; 03/14 00:10 Follow up: Response: No adverse reaction; Marked relief of symptoms; Pain is decreased em 03/13 22:43 Drug: Marcaine (bupivacaine) (0.5 %) 10 ml {Note: administered by PA. Anibal} Volume: em 10 ml; Route: Infiltration; Site: wound; 23:00 Follow up: Response: No adverse reaction; Marked relief of symptoms; Pain is decreased em Outcome: 23:43 Discharge ordered by MD. duffy 03/14 00:11 Discharged to home via wheelchair, with family. em Condition: stable Discharge instructions given to patient, family, Instructed on discharge instructions, follow up and referral plans. medication usage, wound care, Demonstrated understanding of instructions, follow-up care, medications, wound care, Prescriptions given X 3. 00:12 Patient left the ED. em Signatures: Dispatcher [employer] Adela Sommers Edgar, RN RN em Anibal Varner PA PA cp Antunez, Elena, RN RN ea Dibbern, Lauren, RN RN ld1
[2021-03-14 00:36] VITALS: TEMP 98; O2SAT 100
[2021-03-14 00:38] VITALS: BP 126/88
--- NOTE | 2021-03-14 13:51 | RAD REPORT ---
EXAM DESCRIPTION: RAD - Foot Right 3 View - 03/13/2021 10:14 pm CLINICAL HISTORY: Pain. COMPARISON: None. TECHNIQUE: AP, lateral, and oblique views of the right foot. FINDINGS: No fracture. Alignment is anatomic. Joint spaces are maintained. Normal bone mineralizatio n. Normal soft tissues. IMPRESSION: 1. Negative right foot. Electronically signed by: Didi Almeida DO 03/13/2021 11:23 PM CDT Due to temporary technical issues with the PACS/Fluency reporting system, reports are being signed by the in house radiologists without review as a courtesy to insure prompt reporting. The interpreting radiologist is fully responsible for the content of the report.
== END 2021-03-14 00:12 | disposition home or self-care (01) ==
LOC: ER 21:21
PROC: 0JQQ0ZZ Repair Right Foot Subcutaneous Tissue and Fascia, Open Approach (ICD-10-PCS; principal; 2021-03-14)
DX: S90.211A Contusion of right great toe with damage to nail, initial encounter (principal); W22.8XXA Striking against or struck by other objects, initial encounter
CPT/HCPCS: 99284

== ENCOUNTER 2021-11-11 19:54 | Emergency (ER) | payer OTHER ==
--- OUTSIDE RECORDS SUMMARY | 2021-11-11 19:58 | XMS REPORT | Clinical Summary ---
:1985 Author Organization [facility] MD [facility] Address [address] [place] [address] Care Team Providers Name Role Phone Margot Benitez MD Primary Care Provider Marquez Hagen MD Unavailable Allergies No known active allergies Medications Medication Sig Dispensed Refills Start End Date Status Date dextroamphetamine- Take 1 tablet by 0 Active amphetamine mouth 2 (two) 2 (ADDERALL) 30 mg times a day as tablet needed. cyanocobalamin Inject 1 mL 0 Act lilliana (VITAMIN B-12) under the skin 2 1,000 mcg/mL every 30 injection (thirty) days. ergocalciferol Take 1 capsule 0 Active (DRISDOL) 50,000 by mouth once a 2 units capsule week. levothyroxine Take 1 tablet by 0 Active (SYNTHROID, mouth daily. 2 LEVOTHROID) 75 mcg tablet hydroxyzine HCl Take 1 tablet by 0 Active (ATARAX) 50 mg mouth as needed. 2 tablet LORazepam (ATIVAN) Take 1 tablet 1 tablet 0 Active 0.5 mg 30-60 minutes 2 tabletIndications: prior to Anxiety, not scheduled otherwise imaging. You can specified bring the prescription with you to your appointment and the imaging staff will instruct you when to take it. oxyCODONE Take 1 tablet (5 30 tablet 0 Act lilliana (ROXICODONE) 5 mg mg) by mouth 2 immediate release every 4 (four) tabletIndications: hours as needed Positive cervical for severe pain. high risk HPV DNA test acetaminophen Take 2 tablets 60 tablet 0 A ctive (TYLENOL) 500 mg (1,000 mg) by 2 tabletIndications: mouth every 6 Neoplasm, (six) hours. malignant of exocervix apixaban (Eliquis) Take 1 tablet 50 tablet 0 0 Active 2.5 mg (2.5 mg) by 2 22 tabletIndications: mouth every 12 Neoplasm, (twelve) hours malignant of for 25 days. exocervix senna-docusate Take 1 tablet by 60 tablet 0 Active (SENOKOT-S) 8.6 mouth twice 2 mg-50 mg daily. HOLD for tabletIndications: loose Neoplasm, stools/diarrhea. malignant of Available over exocervix the counter. ibuprofen Take 1 tablet 30 tablet 0 Active (ADVIL,MOTRIN) 800 (800 mg) by 2 mg mouth 3 (three) tabletIndications: times a day with Neoplasm, meals. malignant of exocervix methocarbamol Take 1 tablet 30 tablet 0 Ac tive (ROBAXIN) 500 mg (500 mg) by 2 tabletIndications: mouth every 8 Neoplasm, (eight) hours. malignant of exocervix apixaban (Eliquis) Take 1 tablet 52 tablet 0 0 Discontinued 2.5 mg (2.5 mg) by 2 22 (Reorder ) tabletIndications: mouth every 12 Neoplasm, (twelve) hours malignant of for 26 days. 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 Staging: Clinical stage from 2021: Stage IB2 (Primary) - Signed by Margot Benitez MD on 10/19/2021 Positive cervical high risk HPV DNA test 10/18/2021 Anxiety 09/15/2016 Hypothyroidism 09/15/2016 Encounters Date Type Specialty Care Team Description 11/06/2021 Surgery Eli, RADICAL ABDOMIN AL Margot Gaytan MD HYSTERECTOMY, WITH PELVIC LYMPHADENECTOMY W/ REMOVAL OF TUBE (S) 11/06/2021 Anesthesia Event Lolis Perdomo MD Perez, Emmanuel 11/06/2021 Hospital Encounter Transition Benitez, Neoplasm, malignant of exocervix; - Margot Gaytan MD Positive cervical high risk HPV DNA test 11/09/2021 Rossi Noland MD 11/06/2021 Travel 11/05/2021 Anesthesia Event Anesthesiology Fredo Og RN 11/05/2021 POEM Appointments Anesthesiology Thom, Neoplasm , malignant of exocervix; SANJAY Jim Positive cervic al high risk HPV DNA test 11/05/2021 Nutrition Nutrition Margot Benitez MD Gundlach, Claire P, RD 11/02/2021 Office Visit Gynecology Thom, Neoplasm, malig nant of exocervix (Primary Dx); SANJAY Jim Positive cervic al high risk HPV DNA test 11/02/2021 Clinical Support Covid Thom, Suspected C OVID-19 (Primary Dx); SANJAY Jim Neoplasm, malignant of exocervix; Zuleika Mccray Positive cervic al high risk HPV DNA test RICARDO Agrawal 11/02/2021 Documentation Gynecology Maura Hodgson 11/02/2021 Travel 10/27/2021 Immunization Covid Administration of SARS-CoV-2 mRNA vaccine (Primar y Dx) 10/27/2021 Travel 10/26/2021 Ancillary Procedure Radiology Thom, Neoplasm , malignant of exocervix; SANJAY Jim Positive cervic al high risk HPV DNA test 10/26/2021 Ancillary Procedure Radiology Thom, Neoplasm , malignant of exocervix; SANJAY Jim Positive cervic al high risk HPV DNA test 10/26/2021 Travel 10/24/2021 Lab Requisition [facility] 10/22/2021 Orders Only Gynecology Thom, Anxiety, not SANJAY Jim otherwise speci fied (Primary Dx) 10/19/2021 Office Visit Gynecology Eli, Neoplasm, malig nant of exocervix (Primary Dx); Margot Gaytan MD Positive cervi madeline high risk HPV DNA test; Excessive and f requent menstruation with irregular cycle 10/19/2021 [facility] Patient Access Services 10/19/2021 Prep for Surgery Gynecology Thom, Neoplasm, m alignant of exocervix (Primary Dx); SANJAY Jim Positive cervic al high risk HPV DNA test 10/19/2021 Travel after 11/11/2020 Immunizations Name Administration Dates Next Due Moderna SARS-CoV-2 Booster Vaccination 10/27/2021 Moderna SARS-CoV-2 Vaccination 12/20/2020, 11/22/2020 Surgical History Surgery Date Site/Laterality Comments COLONOSCOPY 09/15/2006 - 09/14/2007 HERNIA REPAIR 07/16/2019 - 08/14/2019 STOMACH SURGERY 07/16/2019 - 08/14/2019 CHOLECYSTECTOMY 09/15/2019 - 09/14/2020 UPPER GASTROINTESTINAL 07/16/2019 - ENDOSCOPY 08/14/2019 PA RADICAL ABD 11/06/2021 Abdomen/Bilateral Procedure: RAD ICAL HYSTEREC+PELV NODES ABDOMINAL HY STERECTOMY, WITH PELVIC LYMPHADENECTOMY W/ REMOVAL OF TUBE( S); Surgeon: Margot Benitez MD; Lo cation: MAIN OR; Servic e: DISPLAY SPECIALIST - GYNECOLOGIC ONCO LOGY Medical devices from this surgery are in t he Implants section . PA INTRAOPERATIVE SENTINEL 11/06/2021 Bilateral Proce dure: INTRAOPERATIVE LYMPH NODE ID W DYE LYMPHATIC MA PPING; INJECTION Surgeon: Margot Benitez MD; Lo cation: MAIN OR; Servic e: DISPLAY SPECIALIST - GYNECOLOGIC ONCO LOGY Medical devices from this surgery are in t he Implants section . Medical History Medical History Date Comments Migraine 1999 Pancreatitis 2019 Depressive disorder 2019 Anxiety 2017 Obsessive-compulsive disorder 2000 Attention-deficit hyperactivity disorder Family History Medical History Relation Name Comments Breast cancer Maternal Grandmother Gris Sapp Past due to this Cervical cancer Mother Gris Carrillo Leukemia Paternal Aunt Katherine Wolfe Relation Name Status Comments Maternal Grandmother Gris Sapp Mother Gris Carrillo Paternal Aunt Katherine Wolfe Social History Tobacco Use Types Packs/Day Years Used Date Never Smoker 0 0 Smokeless Tobacco: Never Used Alcohol Use Standard Drinks/Week Comments Yes 0 (1 standard drink = 0.6 oz pure alcoho l) Socially-maybe 2x a month Alcohol Habits Answer Date Recorded How often do you have a drink containing Not asked alcohol? How many drinks containing alcohol do you Not asked have on a typical day when you are drinking? How often do you have six or more drinks on Not asked one occasion? Comment: Socially-maybe 2x a month 10/19/2021 Sex Assigned at Date Recorded Female 10/16/2021 7:18 PM HOSPITAL INSURANCE REPRESENTATIVE Job Start Date Occupation Industry Not on file Not on file Not on file COVID-19 Exposure Response Date Recorded In the last month, have you been in contact with No / Unsure 11/06/2021 8:24 PM HOSPITAL INSURANCE REPRESENTATIVE someone who was confirmed or suspected to have Coronavirus / COVID-19? Obstetrics History Para Term AB IAB SAB Ectopic Multiple Living Live Births 5 3 3 2 3 Date Outcome GA Total Labor/2nd/3rd Weight Sex Delivery Anes PTL Mayte A 1 A5 Name Clin Labor Term Term Term AB AB Last Filed Vital Signs Vital Sign Reading Time Taken Comments Blood Pressure 104/70 11/09/2021 6:20 PM HOSPITAL INSURANCE REPRESENTATIVE Pulse 88 11/09/2021 6:20 PM HOSPITAL INSURANCE REPRESENTATIVE Temperature 36.8 C (98.2 F) 11/09/2021 6:20 PM HOSPITAL INSURANCE REPRESENTATIVE Respiratory Rate 20 11/09/2021 6:20 PM HOSPITAL INSURANCE REPRESENTATIVE Oxygen Saturation 97% 11/09/2021 6:20 PM HOSPITAL INSURANCE REPRESENTATIVE Inhaled Oxygen Concentration - - Weight 77.2 kg (170 lb 3.1 oz) 11/08/2021 5:56 AM HOSPITAL INSURANCE REPRESENTATIVE Height 165.5 cm (5' 5.16") 11/07/2021 8:06 AM HOSPITAL INSURANCE REPRESENTATIVE Body Mass Index 28.19 11/07/2021 8:06 AM HOSPITAL INSURANCE REPRESENTATIVE Plan of Treatment Date Type Specialty Care Team Description 11/13/2021 Clinical Support Surgical Oncology Sharla Tomas, PA [address] [place], [place] [address] (Wo rk) 11/21/2021 Telemedicine Gynecology Margot Benitez MD [address] [place], [place] [address] (Wo rk) Health Maintenance Due Date Last Done Comments COVID-19 Vaccination Completed 10/27/2021, 12/20/2020, 06/2021 Implants Implanted Type Area Med Spa Manager Device Shelf Model / Identifier Expiration Date Ser ial / Lot Seprafilm - Sna Skin/Tiss [id number] 04/03/2024 [id number] / Implanted: Qty: 1 on 11/06/2021 by Margot Benitez MD at [facility] BIOSURGERY NA / [id number] Mirena Description: Mirena Procedures Procedure Name Priority Date/Time Associated Comments Diagnosis ANION GAP AM 11/09/2021 12:38 Results for this AM HOSPITAL INSURANCE REPRESENTATIVE procedure are i n the results section. .GLOMERULAR FILTRATION AM 11/09/2021 12:38 R esults for this RATE AM HOSPITAL INSURANCE REPRESENTATIVE procedure are i n the results section. SERUM CREATININE AM 11/09/2021 12:38 Results for this AM HOSPITAL INSURANCE REPRESENTATIVE procedure are i n the results section. MANUAL DIFFERENTIAL AM 11/09/2021 12:38 Resu lts for this AM HOSPITAL INSURANCE REPRESENTATIVE procedure are i n the results section. Results CBC AM 11/09/2021 12:38 Results for this AM HOSPITAL INSURANCE REPRESENTATIVE procedure are i n the results section. GLUCOSE, RANDOM AM 11/09/2021 12:38 Results for this AM HOSPITAL INSURANCE REPRESENTATIVE procedure are i n the results section. SERUM CREATININE AM 11/09/2021 12:38 AM HOSPITAL INSURANCE REPRESENTATIVE BLOOD UREA NITROGEN AM 11/09/2021 12:38 Resu lts for this AM HOSPITAL INSURANCE REPRESENTATIVE procedure are i n the results section. MAGNESIUM LEVEL AM 11/09/2021 12:38 Results for this AM HOSPITAL INSURANCE REPRESENTATIVE procedure are i n the results section. POTASSIUM LEVEL AM 11/09/2021 12:38 Results for this AM HOSPITAL INSURANCE REPRESENTATIVE procedure are i n the results section. CHLORIDE LEVEL AM 11/09/2021 12:38 Results f or this AM HOSPITAL INSURANCE REPRESENTATIVE procedure are i n the results section. CARBON DIOXIDE LEVEL AM 11/09/2021 12:38 Res ults for this AM HOSPITAL INSURANCE REPRESENTATIVE procedure are i n the results section. SODIUM LEVEL AM 11/09/2021 12:38 Results for this AM HOSPITAL INSURANCE REPRESENTATIVE procedure are i n the results section. COMPLETE BLOOD COUNT W/ AM 11/09/2021 12:38 DIFFERENTIAL AM HOSPITAL INSURANCE REPRESENTATIVE ANION GAP AM 11/08/2021 3:03 Results for this AM HOSPITAL INSURANCE REPRESENTATIVE procedure are i n the results section. .GLOMERULAR FILTRATION AM 11/08/2021 3:03 R esults for this RATE AM HOSPITAL INSURANCE REPRESENTATIVE procedure are i n the results section. SERUM CREATININE AM 11/08/2021 3:03 Results for this AM HOSPITAL INSURANCE REPRESENTATIVE procedure are i n the results section. MANUAL DIFFERENTIAL AM 11/08/2021 3:03 Resu lts for this AM HOSPITAL INSURANCE REPRESENTATIVE procedure are i n the results section. Results CBC AM 11/08/2021 3:03 Results for this AM HOSPITAL INSURANCE REPRESENTATIVE procedure are i n the results section. GLUCOSE, RANDOM AM 11/08/2021 3:03 Results for this AM HOSPITAL INSURANCE REPRESENTATIVE procedure are i n the results section. SERUM CREATININE AM 11/08/2021 3:03 AM HOSPITAL INSURANCE REPRESENTATIVE BLOOD UREA NITROGEN AM 11/08/2021 3:03 Resu lts for this AM HOSPITAL INSURANCE REPRESENTATIVE procedure are i n the results section. MAGNESIUM LEVEL AM 11/08/2021 3:03 Results for this AM HOSPITAL INSURANCE REPRESENTATIVE procedure are i n the results section. POTASSIUM LEVEL AM 11/08/2021 3:03 Results for this AM HOSPITAL INSURANCE REPRESENTATIVE procedure are i n the results section. CHLORIDE LEVEL AM 11/08/2021 3:03 Results f or this AM HOSPITAL INSURANCE REPRESENTATIVE procedure are i n the results section. CARBON DIOXIDE LEVEL AM 11/08/2021 3:03 Res ults for this AM HOSPITAL INSURANCE REPRESENTATIVE procedure are i n the results section. SODIUM LEVEL AM 11/08/2021 3:03 Results for this AM HOSPITAL INSURANCE REPRESENTATIVE procedure are i n the results section. COMPLETE BLOOD COUNT W/ AM 11/08/2021 3:03 DIFFERENTIAL AM HOSPITAL INSURANCE REPRESENTATIVE ANION GAP AM 11/07/2021 12:30 Results for this AM HOSPITAL INSURANCE REPRESENTATIVE procedure are i n the results section. .GLOMERULAR FILTRATION AM 11/07/2021 12:30 R esults for this RATE AM HOSPITAL INSURANCE REPRESENTATIVE procedure are i n the results section. SERUM CREATININE AM 11/07/2021 12:30 Results for this AM HOSPITAL INSURANCE REPRESENTATIVE procedure are i n the results section. GLUCOSE, RANDOM AM 11/07/2021 12:30 Results for this AM HOSPITAL INSURANCE REPRESENTATIVE procedure are i n the results section. SERUM CREATININE AM 11/07/2021 12:30 AM HOSPITAL INSURANCE REPRESENTATIVE BLOOD UREA NITROGEN AM 11/07/2021 12:30 Resu lts for this AM HOSPITAL INSURANCE REPRESENTATIVE procedure are i n the results section. MAGNESIUM LEVEL AM 11/07/2021 12:30 Results for this AM HOSPITAL INSURANCE REPRESENTATIVE procedure are i n the results section. POTASSIUM LEVEL AM 11/07/2021 12:30 Results for this AM HOSPITAL INSURANCE REPRESENTATIVE procedure are i n the results section. CHLORIDE LEVEL AM 11/07/2021 12:30 Results f or this AM HOSPITAL INSURANCE REPRESENTATIVE procedure are i n the results section. CARBON DIOXIDE LEVEL AM 11/07/2021 12:30 Res ults for this AM HOSPITAL INSURANCE REPRESENTATIVE procedure are i n the results section. SODIUM LEVEL AM 11/07/2021 12:30 Results for this AM HOSPITAL INSURANCE REPRESENTATIVE procedure are i n the results section. MANUAL DIFFERENTIAL AM 11/07/2021 12:27 Resu lts for this AM HOSPITAL INSURANCE REPRESENTATIVE procedure are i n the results section. Results CBC AM 11/07/2021 12:27 Results for this AM HOSPITAL INSURANCE REPRESENTATIVE procedure are i n the results section. COMPLETE BLOOD COUNT W/ AM 11/07/2021 12:27 DIFFERENTIAL AM HOSPITAL INSURANCE REPRESENTATIVE INTRAOPERATIVE 11/06/2021 9:17 Neoplasm, LYMPHATIC MAPPING AM HOSPITAL INSURANCE REPRESENTATIVE malignant of exocervix Positive cervical high risk HPV DNA test Special Needs AA@0500 RADICAL ABDOMINAL 11/06/2021 9:17 AM Neoplasm, malign ant of HYSTERECTOMY, WITH PELVIC HOSPITAL INSURANCE REPRESENTATIVE exocer vix LYMPHADENECTOMY W/ OR W/O Positive cervic al high risk HPV REMOVAL OF TUBE(S) AND DNA test OVRY(S) Special Needs AA@0500 CONFIRM ABORH TYPE Now 11/06/2021 8:53 Resul ts for this AM HOSPITAL INSURANCE REPRESENTATIVE procedure are i n the results section. TMP INTERPRETATION Routine 11/06/2021 8:49 Resul ts for this ANTIBODY SCREEN NEGATIVE AM HOSPITAL INSURANCE REPRESENTATIVE pro cedure are in the results section. CLOT EXPIRATION DATE Routine 11/06/2021 8:49 Res ults for this AM HOSPITAL INSURANCE REPRESENTATIVE procedure are i n the results section. ANTIBODY SCREEN Now 11/06/2021 8:49 Results for this AM HOSPITAL INSURANCE REPRESENTATIVE procedure are i n the results section. ABORH Now 11/06/2021 8:49 Results for this AM HOSPITAL INSURANCE REPRESENTATIVE procedure are i n the results section. TYPE AND SCREEN Now 11/06/2021 8:49 AM HOSPITAL INSURANCE REPRESENTATIVE OR URINE BETA HCG Now 11/06/2021 8:17 Result s for this QUALITATIVE AM HOSPITAL INSURANCE REPRESENTATIVE procedure are i n the results section. URINE CULTURE Routine 11/02/2021 12:33 Neoplasm, Results fo r this PM HOSPITAL INSURANCE REPRESENTATIVE malignant of procedure are i n exocervix the results Positive cervical section. high risk HPV DNA test URINALYSIS MICROSCOPIC Routine 11/02/2021 11:56 R esults for this AM HOSPITAL INSURANCE REPRESENTATIVE procedure are i n the results section. URINALYSIS WITH Routine 11/02/2021 11:56 Neoplasm, Results for this MICROSCOPIC IF INDICATED AM HOSPITAL INSURANCE REPRESENTATIVE malignant of pro cedure are in exocervix the results Positive cervical section. high risk HPV DNA test COVID-19 (SARS-COV-2) Routine 11/02/2021 8:40 Suspected Re sults for this PCR-ASYMPTOMATIC MC AM HOSPITAL INSURANCE REPRESENTATIVE COVID-19 procedur e are in the results section. EKG, 12-LEAD (SCHEDULED) Routine 11/02/2021 Neoplasm, malignant of exocervix Positive cervical high risk HPV DNA test PETCT CONTRAST ENHANCED Routine 10/26/2021 11:30 Neoplasm, Results for this INITIAL TREATMENT AM HOSPITAL INSURANCE REPRESENTATIVE malignant of procedure are in STRATEGY exocervix the results Positive cervical section. high risk HPV DNA test MRI PELVIS W WO CONTRAST Routine 10/26/2021 9:00 Neoplasm, Results for this AM HOSPITAL INSURANCE REPRESENTATIVE malignant of procedure are i n exocervix the results Positive cervical section. high risk HPV DNA test PATHOLOGY BIOPSY Routine 10/23/2021 10:00 Neoplasm, Results for this INTERPRETATION AM HOSPITAL INSURANCE REPRESENTATIVE malignant of procedure are in exocervix the results Positive cervical section. high risk HPV DNA test TMP HIV 1/2 AG&AB PATH Routine 10/19/2021 12:40 R esults for this INTERP PM HOSPITAL INSURANCE REPRESENTATIVE procedure are i n the results section. TMP HCVAB INTERP Routine 10/19/2021 12:40 Results for this PM HOSPITAL INSURANCE REPRESENTATIVE procedure are i n the results section. FRACTIONATED BILIRUBIN Routine 10/19/2021 12:40 Neoplasm, R esults for this PM HOSPITAL INSURANCE REPRESENTATIVE malignant of procedure are i n exocervix the results Positive cervical section. high risk HPV DNA test TOTAL PROTEIN Routine 10/19/2021 12:40 Neoplasm, Results fo r this PM HOSPITAL INSURANCE REPRESENTATIVE malignant of procedure are i n exocervix the results Positive cervical section. high risk HPV DNA test ASPARTATE Routine 10/19/2021 12:40 Neoplasm, Results for this AMINOTRANSFERASE PM HOSPITAL INSURANCE REPRESENTATIVE malignant of procedure a re in exocervix the results Positive cervical section. high risk HPV DNA test ALANINE AMINOTRANSFERASE Routine 10/19/2021 12:40 Neoplasm, Results for this PM HOSPITAL INSURANCE REPRESENTATIVE malignant of procedure are i n exocervix the results Positive cervical section. high risk HPV DNA test ALKALINE PHOSPHATASE Routine 10/19/2021 12:40 Neoplasm, Res ults for this PM HOSPITAL INSURANCE REPRESENTATIVE malignant of procedure are i n exocervix the results Positive cervical section. high risk HPV DNA test ALBUMIN LEVEL Routine 10/19/2021 12:40 Neoplasm, Results fo r this PM HOSPITAL INSURANCE REPRESENTATIVE malignant of procedure are i n exocervix the results Positive cervical section. high risk HPV DNA test CALCIUM LEVEL TOTAL Routine 10/19/2021 12:40 Neoplasm, Resu lts for this PM HOSPITAL INSURANCE REPRESENTATIVE malignant of procedure are i n exocervix the results Positive cervical section. high risk HPV DNA test .GLOMERULAR FILTRATION Routine 10/19/2021 12:40 Neoplasm, R esults for this RATE PM HOSPITAL INSURANCE REPRESENTATIVE malignant of procedure are i n exocervix the results Positive cervical section. high risk HPV DNA test SERUM CREATININE Routine 10/19/2021 12:40 Neoplasm, Results for this PM HOSPITAL INSURANCE REPRESENTATIVE malignant of procedure are i n exocervix the results Positive cervical section. high risk HPV DNA test ELECTROLYTE PANEL Routine 10/19/2021 12:40 Neoplasm, Result s for this PM HOSPITAL INSURANCE REPRESENTATIVE malignant of procedure are i n exocervix the results Positive cervical section. high risk HPV DNA test BLOOD UREA NITROGEN Routine 10/19/2021 12:40 Neoplasm, Resu lts for this PM HOSPITAL INSURANCE REPRESENTATIVE malignant of procedure are i n exocervix the results Positive cervical section. high risk HPV DNA test GLUCOSE LEVEL Routine 10/19/2021 12:40 Neoplasm, Results fo r this PM HOSPITAL INSURANCE REPRESENTATIVE malignant of procedure are i n exocervix the results Positive cervical section. high risk HPV DNA test MANUAL DIFFERENTIAL Routine 10/19/2021 12:40 Neoplasm, Resu lts for this PM HOSPITAL INSURANCE REPRESENTATIVE malignant of procedure are i n exocervix the results Positive cervical section. high risk HPV DNA test Results CBC Routine 10/19/2021 12:40 Neoplasm, Results for this PM HOSPITAL INSURANCE REPRESENTATIVE malignant of procedure are i n exocervix the results Positive cervical section. high risk HPV DNA test APTT Routine 10/19/2021 12:40 Neoplasm, Results for this PM HOSPITAL INSURANCE REPRESENTATIVE malignant of procedure are i n exocervix the results Positive cervical section. high risk HPV DNA test PROTHROMBIN TIME Routine 10/19/2021 12:40 Neoplasm, Results for this PM HOSPITAL INSURANCE REPRESENTATIVE malignant of procedure are i n exocervix the results Positive cervical section. high risk HPV DNA test HEMOGLOBIN A1C Routine 10/19/2021 12:40 Neoplasm, Results f or this PM HOSPITAL INSURANCE REPRESENTATIVE malignant of procedure are i n exocervix the results Positive cervical section. high risk HPV DNA test HEPATITIS C VIRUS Routine 10/19/2021 12:40 Neoplasm, Result s for this ANTIBODY PM HOSPITAL INSURANCE REPRESENTATIVE malignant of procedure are i n exocervix the results Positive cervical section. high risk HPV DNA test HIV-1/2 ANTIGEN AND Routine 10/19/2021 12:40 Neoplasm, Resu lts for this ANTIBODIES, FOURTH PM HOSPITAL INSURANCE REPRESENTATIVE malignant of procedure are in GENERATION exocervix the results Positive cervical section. high risk HPV DNA test COMPREHENSIVE METABOLIC Routine 10/19/2021 12:40 Neoplasm, PANEL PM HOSPITAL INSURANCE REPRESENTATIVE malignant of exocervix Positive cervical high risk HPV DNA test COMPLETE BLOOD COUNT W/ Routine 10/19/2021 12:40 Neoplasm, DIFFERENTIAL PM HOSPITAL INSURANCE REPRESENTATIVE malignant of exocervix Positive cervical high risk HPV DNA test HUMAN CHORIONIC Routine 10/19/2021 11:29 Neoplasm, Results for this GONADOTROPIN, AM HOSPITAL INSURANCE REPRESENTATIVE malignant of procedure are in QUALITATIVE, URINE exocervix the results Positive cervical section. high risk HPV DNA test FREE THYROXINE Routine 10/19/2021 10:40 Neoplasm, Results f or this AM HOSPITAL INSURANCE REPRESENTATIVE malignant of procedure are i n exocervix the results Positive cervical section. high risk HPV DNA test THYROID STIMULATING Routine 10/19/2021 10:40 Neoplasm, Resu lts for this HORMONE AM HOSPITAL INSURANCE REPRESENTATIVE malignant of procedure are i n exocervix the results Positive cervical section. high risk HPV DNA test PATHOLOGY OUTSIDE Routine 10/09/2021 Results fo r this INTERPRETATION procedure are in the results section. after 11/11/2020 Results Glucose, Random (11/09/2021 12:38 AM HOSPITAL INSURANCE REPRESENTATIVE)Only the most recent of3 resultswithin the time period is included. Glucose Random 103 70 - 199 mg/dL [facility] Comment: [facility] Effective 04/10/16, the gluco se reference intervals have been updated based on [place] [employer] guidelines (Standards of Medical Care in Diabetes 2016. Diabetes Care 2016; 39: S13-S22). Fasting blood glucose: Normal: 70-99 mg/dL Impaired fasting glucose (in creased risk for diabetes or pre-diabetes): 100- 125 mg/dL Diabetes mellitus: >/=126 mg/dL Random blood glucose: Normal: 70-199 mg/dL Note: Random glucose >100 mg/dL is assoc iated with increased risk for diabetes Specimen Blood Performing Organization Address City/State/[facility] Code Phon e Number [facility] Unless otherwise noted, [address] all lab tests performed by: Division of Pathology and Laboratory Medicine [address] Anion Gap (11/09/2021 12:38 AM HOSPITAL INSURANCE REPRESENTATIVE)Only the most recent of3 resultswithin the time period is included. Pathologist Sig nature Anion Gap 8 4 - 14 mEq/L [facility] Specimen Blood Performing Organization Address City/State/ZIP Code Phon e Number [facility] Unless otherwise noted, [address] all lab tests performed by: Division of Pathology and Laboratory Medicine [address] [place] [address] [place] (ABNORMAL) .Serum Creatinine (11/09/2021 12:38 AM HOSPITAL INSURANCE REPRESENTATIVE)Only the most recent of4 resultswithin the time period is included. Pathologist Sig nature Creatinine 0.49 (L) 0.51 - 0.95 mg/dL [facility] Specimen Blood Performing Organization Address [facility] Phon e Number [facility] Unless otherwise noted, [address] all lab tests performed by: Division of Pathology and Laboratory Medicine [address] [place] [address] (ABNORMAL) .CBC (11/09/2021 12:38 AM HOSPITAL INSURANCE REPRESENTATIVE)Only the most recent of4 resultswithin the time period is included. WBC 6.8 4.0 - 11.0 [facility] K/uL [facility] RBC 3.22 (L) 4.00 - 5.50 [facility] M/uL [facility] Hgb 9.0 (L) 12.0 - 16.0 [facility] gm/dL [facility] Hct 28.6 (L) 37.0 - 47.0 % [facility] MCV 89 82 - [address] [facility] MCH 28.0 27.0 - 31.[address] [facility] MCHC 31.5 31.0 - 36.0 [facility] gm/dL [facility] RDW-SD 42.9 35.1 - 46.[address] [facility] RDW-CV 13.2 12.0 - 15.5 % [facility] Platelet count 239 140 - 440 K/uL [facility] MPV 10.5 (H) 4.0 - 10.[address] [facility] INRBC 0.0 <=0.0 % [facility] Comment: [facility] The INRBC (instrument NRBC) value reflects the enumera tion of nucleated red blood cells contained in a 200uL samp le of whole blood analyzed by the instrument. This value may differ from the NRBC value reported in a manual differ ential, which is based on a 100 cell differential. Specimen Blood Performing Organization Address [facility] Phon e Number [facility] Unless otherwise noted, [address] all lab tests performed by: Division of Pathology and Laboratory Medicine [address] [place] [address] Glomerular Filtration Rate (11/09/2021 12:38 AM HOSPITAL INSURANCE REPRESENTATIVE)Only the most recent of4 resultswithin the time period is included. eGFR-AA 147 >=60 [facility] Comment: mL/min/1.73 [facility] Normal eGFR: >= 60 mL/min/1.73 m2 sq. m Note: The eGFR is calculated using the CKD-EPI equation. The eGFR declines with age. eGFR <60 mL/min/1.73 m2 is considered as "decreased". This equation should only be used for patients 18 and older. According to the [facility]'s Kidney Disease Outcome Quality Initiative (KDOQI) classification and 2012 Kidney Disease Improving Global Outcomes (KDIGO) Clinical Practice Guideline, the stage of CKD should be categorized based on estimated GFR. Stage Description GFR mL/min/1.73 m2 1 Normal or high GFR >=90 2 Mildly decreased GFR 60-89 3a Mildly to moderately decreased GFR 45-59 3b Moderately to severely decreased GFR 30-44 4 Severely decreased GFR 15-29 5 Kidney failure <15 eGFR-VIVEK 128 >=60 [facility] Comment: mL/min/1.73 [facility] Normal eGFR: >= 60 mL/min/1.73 m2 sq. m Note: The eGFR is calculated using the CKD-EPI equation. The eGFR declines with age. eGFR <60 mL/min/1.73 m2 is considered as "decreased". This equation should only be used for patients 18 and older. According to the [facility]'s Kidney Disease Outcome Quality Initiative (KDOQI) classification and 2012 Kidney Disease Improving Global Outcomes (KDIGO) Clinical Practice Guideline, the stage of CKD should be categorized based on estimated GFR. Stage Description GFR mL/min/1.73 m2 1 Normal or high GFR >=90 2 Mildly decreased GFR 60-89 3a Mildly to moderately decreased GFR 45-59 3b Moderately to severely decreased GFR 30-44 4 Severely decreased GFR 15-29 5 Kidney failure <15 Specimen Blood Performing Organization Address City/State/ZIP Code Phon e Number [facility] Unless otherwise noted, [place] [address] CENTER all lab tests performed by: Division of Pathology and Laboratory Medicine [address] (ABNORMAL) Differential (11/09/2021 12:38 AM HOSPITAL INSURANCE REPRESENTATIVE)Only the most recent of4 resultswithin the time period is included. Neutrophil % 61.6 42.0 - 66.0 % [facility] Lymphocyte % 29.9 24.0 - 44.0 % [facility] Monocyte % 7.1 (H) 2.0 - 7.0 % [facility] Eosinophil % 0.7 (L) 1.0 - 4.0 % [facility] Basophil % 0.4 0.0 - 1.0 % [facility] IGRE % 0.3Comment: IGRE % 0.0 - 0.4 % [facility] count includes [facility] Metamyelocytes, Myelocytes, and Promyelocytes. Neutrophil Abs 4.18 1.70 - 7.30 [facility] Lymphocyte Abs 2.03 1.00 - 4.80 [facility] Monocyte Abs 0.48 0.08 - 0.70 [facility] Eosinophil Abs 0.05 0.04 - 0.40 [facility] Basophil Abs 0.03 0.00 - 0.10 [facility] IG Abs 0.02 0.00 - 0.04 [facility] Specimen Blood Performing Organization Address City/[facility] Phon e Number [facility] Unless otherwise noted, [address] all lab tests performed by: Division of Pathology and Laboratory Medicine [address] [facility] Blood Urea Nitrogen (11/09/2021 12:38 AM HOSPITAL INSURANCE REPRESENTATIVE)Only the most recent of4 results within the time period is included. Pathologist Sig nature BUN 12 6 - 23 mg/dL [facility] Specimen Blood Performing Organization Address City/[facility] Phon e Number [facility] Unless otherwise noted, [address] all lab tests performed by: Division of Pathology and Laboratory Medicine [address] [facility] (ABNORMAL) Sodium Level (11/09/2021 12:38 AM HOSPITAL INSURANCE REPRESENTATIVE)Only the most recent of3 resultswithin the time period is included. Pathologist Sig nature Sodium Lvl 134 (L) 136 - 145 mEq/L [facility] Specimen Blood Performing Organization Address City/[facility] Phon e Number [facility] Unless otherwise noted, [address] all lab tests performed by: Division of Pathology and Laboratory Medicine [address] [place] Potassium Level (11/09/2021 12:38 AM HOSPITAL INSURANCE REPRESENTATIVE)Only the most recent of3 resultswithin the time period is included. Pathologist Sig nature Potassium Lvl 3.9 3.5 - 5.1 mEq/L [facility] Specimen Blood Performing Organization Address [facility] Phon e Number [facility] Unless otherwise noted, [address] all lab tests performed by: Division of Pathology and Laboratory Medicine [address] [place] Magnesium Level (11/09/2021 12:38 AM HOSPITAL INSURANCE REPRESENTATIVE)Only the most recent of3 resultswithin the time period is included. Pathologist Sig nature Magnesium 1.9 1.6 - 2.6 mg/dL [facility] Specimen Blood Performing Organization Address [facility] Phon e Number [facility] Unless otherwise noted, [address] all lab tests performed by: Division of Pathology and Laboratory Medicine [address] [place] Chloride Level (11/09/2021 12:38 AM HOSPITAL INSURANCE REPRESENTATIVE)Only the most recent of3 resultswithin the time period is included. Pathologist Sig nature Chloride 103 98 - 107 mEq/L [facility] Specimen Blood Performing Organization Address [facility] Phon e Number [facility] Unless otherwise noted, [address] all lab tests performed by: Division of Pathology and Laboratory Medicine [address] [place] Carbon Dioxide Level (11/09/2021 12:38 AM HOSPITAL INSURANCE REPRESENTATIVE)Only the most recent of3 results within the time period is included. Pathologist Sig nature CO2 23 22 - 29 mEq/L [facility] Specimen Blood Performing Organization Address [facility] Phon e Number [facility] Unless otherwise noted, [address] all lab tests performed by: Division of Pathology and Laboratory Medicine [address] [place] Confirm ABORh (11/06/2021 8:53 AM HOSPITAL INSURANCE REPRESENTATIVE) Pathologist Sig nature ABORh Confirm. A NEG [facility] Specimen Blood Performing Organization Address [facility]/State/ZIP Code Phon e Number [facility] Unless otherwise noted, [address] all lab tests performed by: Division of Pathology and Laboratory Medicine [address] [place] Clot Expiration Date (11/06/2021 8:49 AM HOSPITAL INSURANCE REPRESENTATIVE) Pathologist Sig nature T & S Expiration 11/09/[address] [facility] Specimen Blood Performing Organization Address City/[facility]/ZIP Code Phon e Number [facility] Unless otherwise noted, [address] all lab tests performed by: Division of Pathology and Laboratory Medicine [address] [place] TMP Interpretation Antibody Screen Negative (11/06/2021 8:49 AM HOSPITAL INSURANCE REPRESENTATIVE) TMP Auto Neg ABSC At the present time, patien t plasma shows no evidence of RBC alloantibodies. [facility] Interp Comment: [facility] [place] [id number] Dictated by: KULWINDER MOLINA MD - [id number] Dictated Date/Time: 11.06.19 12:34 PM HOSPITAL INSURANCE REPRESENTATIVE Transcribed Date/Time: 11.06.2021 12:34 PM HOSPITAL INSURANCE REPRESENTATIVE Electronically Signed By: MD Gia BRADSHAW [id number] on 11.06.2021 12:34 PM Specimen Blood Performing Organization Address City/State/ZIP Code Phon e Number [facility] Unless otherwise noted, [address] all lab tests performed by: Division of Pathology and Laboratory Medicine [address] [place] ABORh (11/06/2021 8:49 AM HOSPITAL INSURANCE REPRESENTATIVE) Pathologist Sig nature ABORh. A NEG [facility] Specimen Blood Performing Organization Address City/State/ZIP Code Phon e Number [facility] Unless otherwise noted, [address] all lab tests performed by: Division of Pathology and Laboratory Medicine [address] [place] Antibody Screen (11/06/2021 8:49 AM HOSPITAL INSURANCE REPRESENTATIVE) Pathologist Sig nature ABSC. Negative ABSC [facility] Specimen Blood Performing Organization Address City/State/ZIP Code Phon e Number [facility] Unless otherwise noted, [address] all lab tests performed by: Division of Pathology and Laboratory Medicine [address] [place] OR Urine Beta HCG Qualitative (11/06/2021 8:17 AM HOSPITAL INSURANCE REPRESENTATIVE) OR Urine Beta HCG Negative Negative [facility] Qualitative Comment: [facility] Very dilute urine specimens may cause false negative results. Suggest repeat in 48 hours with a first morning voided urine or request quantitative serum beta HCG test. The ICON 20 hCG Serum/Urine test employs a solid phase chromatographic immunoassay technology to selectively detect elevated levels of hCG in urine with a high degree of sensitivity. Specimen Urine Performing Organization Address City/[facility]/ZIP Code Phon e Number [facility] Unless otherwise noted, [address] all lab tests performed by: Division of Pathology and Laboratory Medicine [address] [place] Urine Culture (11/02/2021 12:33 PM HOSPITAL INSURANCE REPRESENTATIVE) Final Report No growth [facility] Path Review - The results have been review ed and electronically signed by Pathologist: [facility] Urine Karely Castañeda MD, PhD #[id number] [facility] Specimen Urine, Clean Catch Performing Organization Address City/[facility]/ZIP Code Phon e Number [facility] Unless otherwise noted, [address] all lab tests performed by: Division of Pathology and Laboratory Medicine [address] [place] (ABNORMAL) Urinalysis with Microscopic (11/02/2021 11:56 AM HOSPITAL INSURANCE REPRESENTATIVE) UA WBC 3-4 (A)Comment: All 0 - 2 /HPF [facility] [place] components of UA Microscopic Exam performed at [facility], [address] [place] [id number] UA RBC 3-5 (A)Comment: As 0 - 2 /HPF [facility] [place] part of the UA Microscopic Exam performed at [facility], [address] [place] [id number] UA Mucous 3+ (A)Comment: As Not Seen-Trace [facility] [place] part of the UA /HPF Microscopic Exam performed at [facility], [address] [place] [address] UA Bacteria OCCComment: As part NOT SEEN /HPF [facility] [place] of the UA Microscopic Exam performed at [facility], [address] [place] [address] UA Squam Epi OCCComment: As part None-Occasional [facility] [place] of the UA Microscopic /HPF Exam performed at [facility], [address] [place] [address] UA Trans Epi OCC (A)Comment: As NOT SEEN /HPF [facility] [place] part of the UA Microscopic Exam performed at [facility], [address] [place] [address] UA Hyal Cast 0-2Comment: As part 0 - 2 /LPF [facility] [place] of the UA Microscopic Exam performed at [facility], [address] [place] [address] UA Amorph Tracy OCC (A)Comment: As NOT SEEN /HPF [facility] [place] part of the UA Microscopic Exam performed at [facility], [address] [place] [address] Specimen Urine Narrative [facility] - 11/02/2021 1:05 PM HOSPITAL INSURANCE REPRESENTATIVE Some reporting parameters within the Urinalysis test have changed due to the implementation of new instrumentation in the [facility], allowing greater sensitivity of measurement. Urinalysis results rep orted by the [facility] using existing instrumentation, as well as Urinalysis t esting performed manually or by backup methodology at the [facility] will remain relatively unchanged. New reporting parameters and units will now be reported for all campuses. Performing Organization Address City/State/ZIP Code Phon e Number [facility] [address] (ABNORMAL) Urinalysis with Microscopic (11/02/2021 11:56 AM HOSPITAL INSURANCE REPRESENTATIVE) UA Color YellowComment: All Straw-Yellow [facility] components of UA Macroscopic performed at [facility], [address] [place] [address] UA Appear ClearComment: As part Clear [facility] of the UA Macroscopic performed at [facility], [address] [place] [address] UA Glucose NEGComment: As part NEG mg/dL [facility] [place] of the UA Macroscopic performed at [facility], [address] [place] [address] UA Bili NEGComment: As part NEG [facility] [place] of the UA Macroscopic performed at [facility], [address] [place] [address] UA Ketones Trace (A)Comment: As NEG mg/dL [facility] [place] part of UA Macroscopic or as an individual orderable testing performed at [facility], [address] [place] [address] UA Spec Grav 1.025Comment: As part 1.003 - 1.035 [facility] [place] of UA Macroscopic or as an individual orderable testing performed at [facility], [address] [place] [address] UA Blood Trace (A)Comment: As NEG [facility] [place] part of the UA Macroscopic performed at [facility], [address] [place] [address] UA pH 6.5Comment: As part 5.0 - 9.0 [facility] [place] of UA Macroscopic or as an individual orderable testing performed at [facility], [address] [place] [address] UA Protein Trace (A)Comment: As NEG mg/dL [facility] [place] part of the UA Macroscopic performed at [facility], [address] [place] [address] UA Urobilinogen NEGComment: As part NEG [facility] [place] of the UA Macroscopic performed at [facility], [address] [place] [address] UA Nitrite NEGComment: As part NEG [facility] [place] of the UA Macroscopic performed at [facility], [address] [place] [address] UA Leuk Est NEGComment: As part NEG [facility] [place] of the UA Macroscopic performed at [facility], [address] [place] [address] Specimen Urine Performing Organization Address City/State/ZIP Code Phon e Number [facility] [id number] COVID-19 (SARS-CoV-2) PCR-Asymptomatic (11/02/2021 8:40 AM HOSPITAL INSURANCE REPRESENTATIVE) COVID19 (SARS Not Detected Not Detected [facility] SAPP CoV-2) Result Comment: [facility]ENTER This test is a qualitative r everse-transcriptase polymerase chain reaction (RT- PCR) developed for the [employer] system and intended for qualitative detection of SARS CoV-2 RNA in nasopharyngeal a nd oropharyngeal swab specimens collected from any individuals, including those suspected of COVID-19 by their healthcare provider, and those without symptoms or other reasons to suspect COVID-19. A fact sheet for patients provided by the mfg assoc ( [employer]) can be reviewed at: https://www.Lux[employer].gov/media/13 6091/download. A fact sheet for Health Care providers is provided by the mfg assoc ([employer]) and can be reviewed at: https://www.Luxera.gov/media/297315/download Results must be interpreted within the context of all relevant clinical and laboratory findings and should not form the sole basis for a diagnosis or treatment decision. Positive results do not rule out bacterial infection or co- infection with other viruses. Negative results do not rule out SARS-CoV-2 and must be combined with clinical observations, patient history, and/or epidemiological information. "Presumptive Positive" resul ts are due to partial amplification of SARS-CoV-2 targets and indicates low amounts of virus present in the specimen at or near the limit of detection. Regardless, individuals with "Presumptive Positive" results should be managed per institutional gu idelines as individuals positive for SARS-CoV-2 virus, including use of appropriate infection control protocols. Internal controls are includ ed to assess for possible amplification inhibitors. If inhibition is detected, testing is repeated and if inhibition is confirmed the specimen is resulted as "Invalid". When an "Invalid" result occurs, it is recommended to wait 3 days before submittin g a new specimen for testing if clinically indicated. This assay has been approve d by the FDA for use only under Emergency Use Authorization (EUA) in laboratories that have been CLIA-certified to perform moderate-complexity and high-complexity tests. The performance characteristics of this assay were verified by the Microbiology Laboratory at [facility], CLIA Accreditation #: [id number] and CAP Accreditation #: [id number]. COVID19 SARS BEAD WIRE INSULATOR Swab [facility] COVID19 SARS Pre-OR Procedure [facility] Indication CANCER CENTER Specimen Nasopharyngeal Swab Performing Organization Address City/State/ZIP Code Phon e Number [facility] Unless otherwise noted, [place] [address] [place] all lab tests performed by: Division of Pathology and Laboratory Medicine [address] [place] EKG, 12-Lead (Scheduled) (11/02/2021) Specimen Narrative This result has an attachment that is no t available. Performing Organization Address City/State/ZIP Code Phon e Number [facility] PETCT Contrast Enhanced Initial Treatment Strategy (10/26/2021 11:30 AM HOSPITAL INSURANCE REPRESENTATIVE) Specimen Impressions [id number] - 10/26/2021 1:49 PM HOSPITAL INSURANCE REPRESENTATIVE FDG avid known primary tumor in the cervix. No FDG avid parametrial extension, lymphadenopathy, or distant metastases. 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 Indication: Initial staging to determine treatment strategies Comparison: Correlation is made with MRI performed the same day. Technique: F-18 fluorodeoxyglucose (FD G) 9.9 mCi was administered intravenously via right upper proximity. To allow for distribution and uptake of radiotracer, the patient was asked to rest quietly for approximately 60-90 minutes. PET/C T imaging was performed from the skull base through the proximal thighs. CT scanning was done for attenuation correction, image registration, and diagnosis with s can parameters optimized to minimize rad iation exposure to the patient. The CT portion of the examination was performed with intravenous and enteric contrast. SUV measurements are reported as maximum SALDIVAR V based on body weight unless otherwise specified. Findings: Head and Neck: No FDG avid lesions in th e head and neck region. Chest: No FDG avid or otherwise suspicio us pulmonary nodules. No FDG avid or pathologically enlarged lymph nodes in the chest. Abdomen and Pelvis: The liver, spleen, p ancreas, adrenal glands, and both kidneys are unremarkable with no FDG avid lesions. Postsurgical changes from cholecystectom y and gastric reduction surgery. An intrauterine device is in place. Ther e is residual gel contrast material in the vaginal vault from the previous MRI. Focal hypermetabolic activity in the cervix has a maximum SUV of 17.7 (image 209). The underlying cervical abnormality is not measurable on CT. There is no parametrial extension. No FDG avid or pathologically enlarged l ymph nodes in the abdomen or pelvis. Musculoskeletal: No FDG avid bone lesion s. 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 Indication: Initial staging to determine treatment strategies Comparison: Correlation is made with MRI performed the same day. Technique: F-18 fluorodeoxyglucose (FDG ) 9.9 mCi was administered intravenously via right upper proximity. To allow for distribution and uptake of radiotracer, the patient was asked to rest quietly for approximately 60-90 minutes. PET/CT padmini ging was performed from the skull base through the proximal thighs. CT scanning was done for attenuation correction, image registration, and diagnosis with scan parameters optimized to minimize radiation exposure to the patient. The CT portion of the examination was performed with intravenous and enteric contrast. SUV measurements are reported as maximum SUV based on body weight unless otherwise specified. Findings: Head and Neck: No FDG avid lesions in th e head and neck region. Chest: No FDG avid or otherwise suspicio us pulmonary nodules. No FDG avid or pathologically enlarged lymph nodes in the chest. Abdomen and Pelvis: The liver, spleen, p ancreas, adrenal glands, and both kidneys are unremarkable with no FDG avid lesions. Postsurgical changes from cholecystectom y and gastric reduction surgery. An intrauterine device is in place. Ther e is residual gel contrast material in the vaginal vault from the previous MRI. Focal hypermetabolic activity in the cervix has a maximum SUV of 17.7 (image 209). The underlying cervical abnormality is not m easurable on CT. There is no parametrial extension. No FDG avid or pathologically enlarged l ymph nodes in the abdomen or pelvis. Musculoskeletal: No FDG avid bone lesion s. IMPRESSION: FDG avid known primary tumor in the cerv ix. No FDG avid parametrial extension, lymphadenopathy, or distant metastases. Performing Organization Address City/State/ZIP Code Phon e Number [id number] MRI Pelvis with and without Contrast (10/26/2021 9:00 AM HOSPITAL INSURANCE REPRESENTATIVE) Specimen Impressions [id number] - 10/26/2021 10:36 AM HOSPITAL INSURANCE REPRESENTATIVE The known biopsy-proven malignancy appea rs confined to the cervix, and is ill- defined on MR imaging. There is no evidence of vaginal, uterine or parametrial invasion. I personally reviewed these image(s) lesliesawyer diaz with the resident's/fellow's interpretations, certify that if a procedure was performed I was physically present, and agree with the final report. Narrative [id number] - 10/26/2021 10:36 AM HOSPITAL INSURANCE REPRESENTATIVE FULL RESULT: Examination: MRI PELVIS W WO CONTRAST, 9:00 AM. 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 Indication: Cancer pre-treatment assessm ent, Newly diagnosed Cervical Cancer-> initial staging Comparison: None Technique: Multiplanar multisequence mag netic resonance imaging of the pelvis was performed without and with intravenous administration of contrast. Findings: There is nonspecific enhancement at the level of the cervix (image 12 series 127), which may be related to prior procedure or known malignancy. This enhancement appears confined to the cervix. No discre te mass is visualized the level of the c ervix. There is no evidence of vaginal, uterine, or parametrial invasion. An intrauterine device is present. The bilateral ovaries are seen containin g follicles. There are no suspicious adnexal masses. No enlarged pelvic or inguinal lymph nod es are identified.There is a nonspecific 5 mm left external iliac lymph node (series 7 image 16), possibly reactive. The bladder and rectum appear unremarkab le. There is no evidence of osseous metastas is. Other: Limited coronal imaging demonstra varinder no evidence of hydronephrosis. Procedure Note Alanna Gardner MD - 10/26/2021 FULL RESULT: Examination: MRI PELVIS W WO CONTRAST, 9:00 AM. 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 Indication: Cancer pre-treatment assessm ent, Newly diagnosed Cervical Cancer-> initial staging Comparison: None Technique: Multiplanar multisequence mag netic resonance imaging of the pelvis was performed without and with intravenous administration of contrast. Findings: There is nonspecific enhancement at the level of the cervix (image 12 series 127), which may be related to prior procedure or known malignancy. This enhancement appears confined to the cervix. No discrete mass is visualized the level of the cervix. Ther e is no evidence of vaginal, uterine, or parametrial invasion. An intrauterine device is present. The bilateral ovaries are seen containin g follicles. There are no suspicious adnexal masses. No enlarged pelvic or inguinal lymph nod es are identified.There is a nonspecific 5 mm left external iliac lymph node (series 7 image 16), possibly reactive. The bladder and rectum appear unremarkab le. There is no evidence of osseous metastas is. Other: Limited coronal imaging demonstra varinder no evidence of hydronephrosis. 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 There is no evidence of vaginal, uterine or parametrial invasion. I personally reviewed these image(s) leslie diaz with the resident's/fellow's interpretations, certify that if a procedure was performed I was physically present, and agree with the final report. 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 (SEE CO MMENT) signed by Karli Balderrama on 10/24/2021 at 6: 09 PM Comment Immunohistochemical stains a re performed and show the neoplastic cells to be positive for p40 and p16 (strong, diffuse), while negative for synaptophysin and chromogranin. In-situ hybridization for HR-H [facility] PV is performed and is posit lilliana. The findings are consistent with the above diagnosis. While invasion into the unde rlying stroma is present, the lack of sufficient underlying stroma and tangential sectioning limit evaluation and a depth of invasion cannot be determined on this sample. Lymphovascular invasion is not identified. Gross Description A: [facility] Cervix, 9-10 o'clock: One ta n-yellow fragment of soft tissue measuring 0.8 cm, entirely submitted in A1. GM Biomarker T: A1 [facility] Block(s) N: N/A Disclaimer "Some tests reported here [facility] may have been developed and performance characteristics determined by [facility]. These tests have not been specifically cleared or approved by the U.S. Food and Drug Administration. If applicable, controls were reviewed and showed appropriate reactivity." Specimen Tissue - Cervix Performing Organization Address City/State/ZIP Code Phon e Number [facility] [place] [address] [address] [facility] HIV 1/2 Ag&Ab Path Interp (10/19/2021 12:40 PM HOSPITAL INSURANCE REPRESENTATIVE) HIV 1/2 Ag&Ab Negative for HIV-1 antigen a nd HIV-1/HIV-2 antibodies. No laboratory evidence of HIV infection. If acute HIV infection is suspected, consider testing for HIV-1 RNA. [facility] Interp Comment: CENTER NICANOR YATES MD, PhD - [id number] Dictated by: NICANOR YATES MD, PhD - [id number] Dictated Date/Time: 10.20.19 21:24 PM HOSPITAL INSURANCE REPRESENTATIVE Transcribed Date/Time: 10.20.2021 21:24 PM HOSPITAL INSURANCE REPRESENTATIVE Electronically Signed By: DIOGO YATES MD, PhD - [id number] on 10.20.2021 21:24 PM Specimen Blood Performing Organization Address City/State/ZIP Code Phon e Number [facility] CENTER [address] [place] [address] HIV-1/2 Antigen and Antibodies, Fourth Generation (10/19/2021 12:40 PM HOSPITAL INSURANCE REPRESENTATIVE) Pathologist [facility] HIV 1/2 Ag & Ab, Non Reactive Non Reactive [facility] 4th Gen Comment: CENTER Performed at: [facility] [address] [place] [address] Specimen Blood Performing Organization Address City/[facility] Phon e Number [facility] [place] [address] [place] [address] TMP HCV Ab Path Interp (10/19/2021 12:40 PM HOSPITAL INSURANCE REPRESENTATIVE) [facility] HCV Ab Path There is NO serologic evidence of Hepatitis C vi funmilayo antibody. [facility] Interp Comment: CENTER NICANOR YATES MD, PhD - [id number] Dictated by: NICANOR YATES MD, PhD - [id number] Dictated Date/Time: 10.20.19 21:24 PM HOSPITAL INSURANCE REPRESENTATIVE Transcribed Date/Time: 10.20.2021 21:24 PM HOSPITAL INSURANCE REPRESENTATIVE Electronically Signed By: DIOGO YATES MD, PhD - [id number] on 10.20.2021 21:24 PM Specimen Blood Performing Organization Address City/[facility] Code Phon e Number [facility] [place] [address] [place] [address] Fractionated Bilirubin (10/19/2021 12:40 PM HOSPITAL INSURANCE REPRESENTATIVE) [facility] Bili Total 0.4 <=1.2 mg/dL [facility] Comment: Indocyanine Green (ICG) may cause falsely elevated bilirubin results. Total and direct bilirubin must not be measured from samples containing indocyanine green. False elevation of total pipe irubin can be seen in patients with IgG concentrations above 28 g/L. Testing performed at [facility], [address] [place] [address] Bili Direct <0.2 <=0.3 mg/dL [facility] Comment: Indocyanine Green (ICG) may cause falsely elevated bilirubin results. Total and direct bilirubin must not be measured from samples containing indocyanine green. Testing performed at [facility], [address] [place] [address] Bili Indirect See Note 0.0 - 0.9 [facility] Comment: mg/dL Unable to calculate Indirect Bilirubin result due to some parameters are outside reportable range Testing performed at [facility], [address] [place] [address] Specimen Blood Performing Organization Address City/State/ZIP Code Phon e Number [facility] [place] [address] [place] [address] Hepatitis C Virus Antibody (10/19/2021 12:40 PM HOSPITAL INSURANCE REPRESENTATIVE) HCVAb. Non Reactive Non Reactive [facility] Comment: CENTER Antibody detection in the im munocompromised and immunosuppressed population may be delayed or absent entirely. Therefore serial testing, correlation with other clinical findings, and supplemental testin g (if available) should be taken into consideration when interpreting the results. Performed at: [facility] [address] [place] [address] Specimen Blood Performing Organization Address City/[facility]/ZIP Code Phon e Number [facility]ENTER [address] [place] [address] aPTT (10/19/2021 12:40 PM HOSPITAL INSURANCE REPRESENTATIVE) Pathologist Sig alma aPTT 30.1Comment: Testing 24.7 - 36.8 [facility] performed at [facility], [address] [place] [address] Specimen Blood Narrative [facility] - 10/19/2021 1:10 PM HOSPITAL INSURANCE REPRESENTATIVE This lab cannot be scheduled at the [facility] ([place], [place]) locations due to collection/proccessing restrictions: [facility] and [facility]. Performing Organization Address City/[facility]/ZIP [facility] [place] [address] [place] [address] PT/INR (10/19/2021 12:40 PM HOSPITAL INSURANCE REPRESENTATIVE) Pathologist Robin marquez PT 13.5Comment: Testing 11.5 - 13.9 RCC [facility]ERO performed at [facility], [address] [place] [address] INR 1.07Comment: Testing 0.90 - 1.10 [facility] performed at [facility], [address] [place] [address] Specimen Blood Narrative [facility] - 10/19/2021 1:10 PM HOSPITAL INSURANCE REPRESENTATIVE This lab cannot be scheduled at the [facility] ([place], [place]) locations due to collection/proccessing restrictions: [facility] and [facility]. Performing Organization Address City/State/ZIP Code Phon [place] [address] [place] [address] ALT (10/19/2021 12:40 PM HOSPITAL INSURANCE REPRESENTATIVE) Pathologist Sig nature ALT 8Comment: Testing performed <=33 U/L [facility] [place] at [facility], [address] [place], [place] [address] Specimen Blood Performing Organization Address City/[facility]/ZIP Code Phon e Number [address] Aspartate Aminotransferase (10/19/2021 12:40 PM HOSPITAL INSURANCE REPRESENTATIVE) Pathologist Sig [facility] AST 12Comment: Testing performed <=32 U/L RCC [place] at [facility], [address] [place] [address] Specimen Blood Performing Organization Address City/[facility]/ZIP Code Phon e Number [address] Total Protein (10/19/2021 12:40 PM HOSPITAL INSURANCE REPRESENTATIVE) Pathologist Sig [facility] Total Protein 7.9Comment: Testing 6.4 - 8.3 g/dL [facility] [place] performed at [facility], [address] [place] [address] Specimen Blood Performing Organization Address City/[facility]/ZIP Code Phon e Number [facility], [address] Alkaline Phosphatase (10/19/2021 12:40 PM HOSPITAL INSURANCE REPRESENTATIVE) Pathologist Sig nature Alk Phos 88Comment: Testing 35 - 104 U/L [facility] [place] performed at [facility], [address] [place] [address] Specimen Blood Performing Organization Address City/[facility]/ZIP Code Phon e Number [address] Hemoglobin A1c (10/19/2021 12:40 PM HOSPITAL INSURANCE REPRESENTATIVE) Pathologist Sig nature A1C 5.0 4.3 - 5.6 % [facility] Comment: HbA1c values >=6.5% are diagnostic of diabetes mellitu s. Diagnosis should be confirmed by repeat testing. Therapeutic Action suggested: >8.0% HbA1c; Goal of therapy: <7.0% HbA1c Testing Performed at [facility], [address] [place] [address] Specimen Blood Performing Organization Address [facility]/ZIP [facility] [place] [address] [place] [address] Glucose Level (10/19/2021 12:40 PM HOSPITAL INSURANCE REPRESENTATIVE) Pathologist Sig nature Glucose Level 93 70 - 99 mg/dL [facility] Comment: Effective 04/10/16, the gluco se reference intervals have been updated based on [place] [employer] guidelines (Standards of Medical Care in Diabetes 2016. Diabetes Care 2016; 39: S13-S22). Fasting blood glucose: Normal: 70-99 mg/dL Impaired fasting glucose (in creased risk for diabetes or pre-diabetes): 100- 125 mg/dL Diabetes mellitus: >/=126 mg/dL Random blood glucose: Normal: 70-199 mg/dL Note: Random glucose >100 mg/dL is assoc iated with increased risk for diabetes Testing performed at [facility], [address] [place] [address] Specimen Blood Performing Organization Address [facility] [place] [address] [place] [address] Calcium Level (10/19/2021 12:40 PM HOSPITAL INSURANCE REPRESENTATIVE) Pathologist Sig nature Calcium Lvl 9.5Comment: Testing 8.4 - 10.2 mg/dL [facility] performed at [facility], [address] [place] [address] Specimen Blood Performing Organization Address City/[facility]/ZIP [facility] [place] [address] [place] [address] Albumin Level (10/19/2021 12:40 PM HOSPITAL INSURANCE REPRESENTATIVE) Pathologist Sig nature Albumin Lvl 4.6Comment: Testing 3.5 - 5.2 gm/dL [facility] performed at [facility], [address] [place], [place] [address] Specimen Blood Performing Organization Address City/State/ZIP Code Phon e Number [facility] [place] [id number] [address] [place] [address] Electrolyte Panel (10/19/2021 12:40 PM HOSPITAL INSURANCE REPRESENTATIVE) Pathologist Sig nature Sodium Lvl 137Comment: Testing 136 - 145 mEq/L [facility] [place] performed at [facility], [address] [place] [address] Potassium Lvl 3.6Comment: Testing 3.5 - 5.1 mEq/L [facility] [place] performed at [facility], [address] [place] [address] Chloride 102Comment: Testing 98 - 107 mEq/L [facility] performed at [facility], [address] [place] [address] CO2 26Comment: Testing 22 - 29 mEq/L [facility] performed at [facility], [address] [place] [address] Anion Gap 9Comment: Testing 4 - 14 mEq/L [facility] performed at [facility], [address] [place] [address] Specimen Blood Performing Organization Address City/[facility]/ZIP Code Phon e Number [facility] [place] [id number] [address] [place] [address] U HCG (10/19/2021 11:29 AM HOSPITAL INSURANCE REPRESENTATIVE) Pathologist Sig nature U beta hCG Ql Negative Negative [facility] Comment: Very dilute urine specimens may cause false negative results. Suggest repeat in 48 hours with a first morning voided urine or request quantitative serum beta HCG test. Testing performed at [facility], [address] [place], [place] [id number] Specimen Urine Performing Organization Address City/State/ZIP Code Phon e Number [facility] [place] [id number] [address] [place] [address] TSH (10/19/2021 10:40 AM HOSPITAL INSURANCE REPRESENTATIVE) Pathologist Sig nature TSH 1.18Comment: Testing 0.27 - 4.20 [facility] [place] performed at [facility], [address] [place] [address] Specimen Blood Performing Organization Address City/[facility]/ZIP [place] [address] [address] [facility] Free T4 (10/19/2021 10:40 AM HOSPITAL INSURANCE REPRESENTATIVE) Pathologist Sig nature T4 Free 1.52Comment: Testing 0.93 - 1.70 ng/dL ROSIO PHAM performed at [facility], [address] [facility], [place] [address] Specimen Blood Performing Organization Address [facility] [place] [address] [address] [facility] Pathology Outside Interpretation (10/09/2021) Materials Accession#, Stained, Block, Unstained Collected Receiv ed [facility] Received A. [id number], 3 SS, 0 BLOCKS, 0 USS 10/09/2021 10/24/2021 Diagnosis Three outside slides ([id number], A1 x2, IHC), designated as cervical biopsy: [facility] Electronically signed by Carolina FRAGMENTS OF INVASIVE POORLY DIFFERENTIATED SQUAMOUS CELL CARCINOMA. (SEE COMMENT) MD Manuel on 10/25/2021 at 5 :16 AM/FMT PM Comment Submitted [facility] immunohistochemical stain shows that the tumor cells are positive for CK5/6. This result supports the above diagnosis. Biomarker T: [id number], A1 [facility] Block(s) Disclaimer "Some tests reported here [facility] may have been developed and performance characteristics determined by [facility]. These tests have not been specifically cleared or approved by the U.S. Food and Drug Administration. If applicable, controls were reviewed and showed appropriate reactivity." Specimen Tissue Performing Organization Address City/[facility]/ZIP Code Phon e Number [facility] [address] [address] after 11/11/2020 Insurance Payer Benefit Plan / Subscriber ID Effective Dates Phone Addre ss Type Group [employer] MANAGED CIGNA HMO POS [id number] 2018-Present [id number] O CARE OPEN [place] [address] Advance Directives Type Date Recorded Patient Overhauler Explanati on Advance Directives: 11/02/2021 12:00 AM Directive to Physicians Living Will and Family or Surrogates-Maytein g Will Advance Directives: 11/02/2021 12:00 AM Medical Estephania varela Medical Power of Uniformer Uniformer Code Status Date Activated Date Inactivated Comments Full Code 11/06/2021 7:56 PM 11/09/2021 8:33 PM Care Teams Occupational Therapy Technician Relationship Specialty Start Date End Date Margot Benitez, PCP - General Gynecological Oncology 10/17/[address] [place] [address] Patricio Hagen PCP - External Primary Obstetrics/Gynecology 10/19/21 MD Marquez Care Provider [address] [place] [address]
--- OUTSIDE RECORDS SUMMARY | 2021-11-11 20:00 | XMS REPORT | Continuity of Care Document ---
:1985 Author Organization [facility] t Address [address] [place] [address] Care Team Providers Name Role Phone Palma Evangelista MD Primary Care Physician SYSTEM, NOT IN Attending Clinician Unavailable DUNIA Attending Clinician Unavailable Lucila Benitez MD Attending Clinician Dunia MIDDLETON Attending Clinician Leanne MIDDLETON Attending Clinician John Attending Clinician Unavailable Brady Og RN Attending Clinician Unavailable Dereck GRACE Attending Clinician Lucille DANIELS, P Attending Clinician Lucila BENITEZ Attending Clinician Unavailable DERECK Attending Clinician Unavailable Tanja Mccray RN Attending Clinician Unavailable Roxane Hodgson Attending Clinician Unavailable Halle Evans MD Attending Clinician Huber MIDDLETON Attending Clinician Karli CHILDRESS Attending Clinician Unavailable Neville SILVA Attending Clinician Unavailable TROY Attending Clinician Unavailable Lab, Fam Pob I Attending Clinician Unavailable Roxane Koroma Attending Clinician Pcp, Does Not Have A Attending Clinician NERIS Attending Clinician Unavailable Nathan HOUSE Attending Clinician Unavailable Nathan HOUSE Attending Clinician Unavailable DUNIA Admitting Clinician Unavailable NERIS Admitting Clinician Unavailable Hayden MAZA Admitting Clinician Unavailable Payers Payer Name Policy Type Policy Number Effective Date Expiration Date Chuck monk CIGNA HMO POS [id number] 2018 00:00:00 OPEN ACCESS CIGNA II [id number] 2019 00:00:00 Problems Condition Condition Condition Status Onset Resolution Last Treating Co mments Source Name Details Category Date Date Treatment Clinician Date Excessive Excessive Disease Active and and 10-21 Anderso frequent frequent 00:00: n menstruati menstruati 00 on with on with irregular irregular cycle cycle Neoplasm, Neoplasm, Disease Active malignant malignant 10-18 Tha rso of of 00:00: n exocervix exocervix 00 Positive Positive Disease Active cervical cervical 10-18 Jaime o high risk high risk 00:00: n HPV DNA HPV DNA 00 test test Anxiety Anxiety Disease Active 09-15 Anderso 00:00: n 00 Hypothyroi Hypothyroi Disease Active M D dism dism 09-15 Anderso 00:00: n 00 No known No known Disease Unive rs active active ity of problems problems [facility] Allergies, Adverse Reactions, Alerts Allergy Allergy Status Severity Reaction(s) Onset Inactive Treating Comm ents Source Name Type Date Date Clinician NO KNOWN Drug Active Univers ALLERGIE Class ity of S [facility] Family History Family Member Diagnosis Comments Start Date Stop Date Source Maternal grandmother Breast cancer Karli Sapp Natural mother Cervical cancer MD Radha bryant Paternal aunt Leukemia MD Sapp Social History Social Habit Start Date Stop Date Quantity Comments Source ASSERTION 2017-01-28 Adventism 00:00:00 Hospital History [facility] MD Sapp Alcohol Frequency History [facility] MD Sapp Alcohol Std Drinks History BARBARAHI MD Sapp Alcohol Binge Exposure to Not sure MD Sapp SARS-CoV-2 (event) Alcohol intake 2021-11-08 2021-11-08 Current drinker MD Radha bryant 00:00:00 00:00:00 of alcohol (finding) Tobacco use and 2021-10-19 2021-10-19 Smokeless tobacco MD Sapp exposure 00:00:00 00:00:00 non-user History SDOH 2021-10-19 2021-10-19 Socially-maybe 2x MD Radha bryant Alcohol Comment 00:00:00 00:00:00 a month Sex [birth year] At [birth year] F MD Sandoval on 00:00:00 00:00:00 Smoking Status Start Date Stop Date Source Never smoked tobacco MD Sapp Unknown if ever smoked [facility] Medications Ordered Filled Start Stop Current Ordering Indication Dosage Frequency Signature Comments Components Source Medication Medication Date Date Medication? Clinician (SIG) Name Name oxyCODONE Yes Positive 5mg Take 1 MD (ROXICODONE 2-25 cervical tablet (5 Anderso ) 5 mg 00:00: high risk mg) by n immediate 00 HPV DNA mouth release test every 4 tablet (four) hours as needed for severe pain. acetaminoph Yes Neoplasm, 1000mg Take 2 MD en 2-25 malignant tablets Anderso (TYLENOL) 00:00: of (1,000 mg) n 500 mg 00 exocervix by mouth tablet every 6 (six) hours. senna-docus Yes Neoplasm, 1{tbl} Take 1 MD ate 2-25 malignant tablet by Osvaldo tao (SENOKOT-S) 00:00: of mouth n 8.6 mg-50 00 exocervix twice mg tablet daily. HOLD for loose stools/wale rrhea. Available over the counter. ibuprofen Yes Neoplasm, 800mg Take 1 MD (ADVIL,MOTR 2-25 malignant tablet A nderso IN) 800 mg 00:00: of (800 mg) n tablet 00 exocervix by mouth 3 (three) times a day with meals. methocarbam Yes Neoplasm, 500mg Take 1 MD ol 2-25 malignant tablet Anderso (ROBAXIN) 00:00: of (500 mg) n 500 mg 00 exocervix by mouth tablet every 8 (eight) hours. apixaban 2021- Yes Neoplasm, 2.5mg Take 1 MD (Eliquis) 2-25 03-23 malignant tablet An derso 2.5 mg 00:00: 04:59 of (2.5 mg) n tablet 00 :00 exocervix by mouth every 12 (twelve) hours for 25 days. apixaban 2021- No Neoplasm, 2.5mg Take 1 MD (Eliquis) 11-07 malignant tablet An derso 2.5 mg 00:00: 00:00 of (2.5 mg) n tablet 00 :00 exocervix by mouth every 12 (twelve) hours for 26 days. LORazepam Yes Anxiety, Take 1 MD (ATIVAN) 2-07 not tablet Anderso 0.5 mg 00:00: otherwise 30-60 n tablet 00 specified minutes prior to scheduled imaging. You can bring the prescripti on with you to your appointmen t and the imaging staff will instruct you when to take it. dextroamphe Yes 1{tbl} Take 1 MD tamine-amph 1-18 tablet by And erso etamine 00:00: mouth 2 n (ADDERALL) 00 (two) 30 mg times a tablet day as needed. cyanocobala Yes 1mL Inject 1 MD min 1-18 mL under Anderso (VITAMIN 00:00: the skin n B-12) 1,000 00 every 30 mcg/mL (thirty) injection days. ergocalcife Yes 1{capsu Take 1 M D rol 1-18 le} capsule by Andelle (DRISDOL) 00:00: mouth once n 50,000 00 a week. units capsule levothyroxi Yes 1{tbl} Take 1 MD ne 1-18 tablet by Andnatano (SYNTHROID, 00:00: mouth n LEVOTHROID) 00 daily. 75 mcg tablet hydroxyzine Yes 1{tbl} Take 1 MD HCl 1-18 tablet by Anderso (ATARAX) 50 00:00: mouth as n mg tablet 00 needed. amoxicillin 2020- No [id number] 1{tbl} Take 1 Univers -clavulanat 10-23 tablet by it y of e 00:00: 05:59 mouth 2 [place] (AUGMENTIN) 00 :00 (two) Medical 875-125 mg times Branch per tablet daily for 10 days. cetirizine- 2020- No [id number] 1{tbl} Take 1 Univers psuedoephed 10-23 tablet by it y of rine 00:00: 05:59 mouth 2 [place] (ZYRTEC-D) 00 :00 (two) Medical 5-120 mg times Branch per tablet daily for 10 days. dextroamphe Yes 30mg Take 30 mg Univers tamine-amph 1-13 by mouth 2 it y of etamine 30 00:00: (two) [place] mg tablet 00 times Medical daily. Branch sulfamethox Yes 1{tbl} Take 1 Tab Univers azole-trime 6-19 by mouth ity of thoprim 00:00: every 12 [place] (BACTRIM 00 (twelve) Medical DS) 800-160 hours. Branch mg tablet sulfamethox Yes 1{tbl} Take 1 Tab Univers azole-trime 6-19 by mouth ity of thoprim 00:00: every 12 [place] (BACTRIM 00 (twelve) Medical DS) 800-160 hours. Branch mg tablet Yes 1 Tab Oral Uni vers VIT-IRON 7-02 DAILY ity of FUMARATE-FA 00:00: [place] 65-1 MG 00 Medical ORAL TAB Branch DOCUSATE Yes 1 Cap Oral Uni vers CALCIUM 240 7-02 QHSPRN ity of MG ORAL CAP 00:00: [place] 00 Medical Branch Yes 1 Tab Oral Uni vers VIT-IRON 7-02 DAILY ity of FUMARATE-FA 00:00: [place] 65-1 MG 00 Medical ORAL TAB Branch DOCUSATE Yes 1 Cap Oral Uni vers CALCIUM 240 7-02 QHSPRN ity of MG ORAL CAP 00:00: [place] 00 [facility] Immunizations Ordered Filled Immunization Date Status Comments [facility] e Immunization Name Name Tonya SARS-CoV-2 2021-10-27 Completed MD And erson Booster Vaccination 00:00:00 Moderna SARS-CoV-2 2020-12-20 Completed MD And erson Vaccination 00:00:00 Moderna SARS-CoV-2 2020-11-22 Completed MD And erson Vaccination 00:00:00 HPV9 2019-06-25 Completed University of 00:00:00 [facility] Rho (d) Immune 2009-03-16 Completed University of Globulin 00:00:00 [facility] Rho (d) Immune 2009-03-16 Completed University of Globulin 00:00:00 [facility] Rho (d) Immune 2009-03-16 Completed University of Globulin 00:00:00 [facility] Vital Signs Vital Name Observation Time Observation Value Comments Source Systolic blood pressure 2021-11-10 00:20:00 104 mm[Hg] MD Sapp Diastolic blood pressure 2021-11-10 00:20:00 70 mm[Hg] MD Sapp Heart rate 2021-11-10 00:20:00 88 /min MD Osvaldo kramer Body temperature 2021-11-10 00:20:00 36.78 Theresa MD Roxane zamora Respiratory rate 2021-11-10 00:20:00 20 /min MD Roxane zamora Oxygen saturation in 2021-11-10 00:20:00 97 /min MD Sapp Arterial blood by Pulse oximetry Body weight 2021-11-08 11:56:00 77.2 kg MD Osvaldo kramer BMI 2021-11-08 11:56:00 28.19 kg/m2 MD Osvaldo kramer Body height 2021-11-07 14:06:00 165.5 cm MD Osvaldo kramer Procedures Procedure Date / Time Performed Performing Clinician [facility] e COMPLETE BLOOD COUNT W/ 2021-11-09 06:38:00 Kojo Emmanuel MD DIFFERENTIAL SODIUM LEVEL 2021-11-09 06:38:00 Kojo Emmanuel MD CARBON DIOXIDE LEVEL 2021-11-09 06:38:00 Kojo Emmanuel MD Tha rson CHLORIDE LEVEL 2021-11-09 06:38:00 Kojo Emmanuel MD POTASSIUM LEVEL 2021-11-09 06:38:00 Kojo Emmanuel MD MAGNESIUM LEVEL 2021-11-09 06:38:00 Kojo Emmanuel MD BLOOD UREA NITROGEN 2021-11-09 06:38:00 Kojo Emmanuel MD SERUM CREATININE 2021-11-09 06:38:00 Kojo Emmanuel MD GLUCOSE, RANDOM 2021-11-09 06:38:00 Kojo Emmanuel MD Results CBC 2021-11-09 06:38:00 Kojo Emmanuel MD MANUAL DIFFERENTIAL 2021-11-09 06:38:00 Kojo Emmanuel MD SERUM CREATININE 2021-11-09 06:38:00 Kojo Emmanuel MD .GLOMERULAR FILTRATION RATE 2021-11-09 06:38:00 Kojo Emmanuel MD ANION GAP 2021-11-09 06:38:00 Kojo Emmanuel MD COMPLETE BLOOD COUNT W/ 2021-11-08 09:03:00 Kojo Emmanuel MD nderson DIFFERENTIAL SODIUM LEVEL 2021-11-08 09:03:00 Kojo Emmanuel MD CARBON DIOXIDE LEVEL 2021-11-08 09:03:00 Kojo Emmanuel MD rson CHLORIDE LEVEL 2021-11-08 09:03:00 Kojo Emmanuel MD POTASSIUM LEVEL 2021-11-08 09:03:00 Kojo Emmanuel MD MAGNESIUM LEVEL 2021-11-08 09:03:00 Kojo Emamnuel MD BLOOD UREA NITROGEN 2021-11-08 09:03:00 Kojo Emmanuel MD Osvaldo son SERUM CREATININE 2021-11-08 09:03:00 Kojo Emmanuel MD GLUCOSE, RANDOM 2021-11-08 09:03:00 Kojo Emmanuel MD Results CBC 2021-11-08 09:03:00 Kojo Emmanuel MD MANUAL DIFFERENTIAL 2021-11-08 09:03:00 Kojo Emmanuel MD Ovsaldo son SERUM CREATININE 2021-11-08 09:03:00 Kojo Emmanuel MD .GLOMERULAR FILTRATION RATE 2021-11-08 09:03:00 Kojo Emmanuel MD ANION GAP 2021-11-08 09:03:00 Kojo Emmanuel MD SODIUM LEVEL 2021-11-07 06:30:00 Kojo Emmanuel MD CARBON DIOXIDE LEVEL 2021-11-07 06:30:00 Kojo Emmanuele rson CHLORIDE LEVEL 2021-11-07 06:30:00 Kojo Emmanuel MD POTASSIUM LEVEL 2021-11-07 06:30:00 Kojo Emmanuel MD MAGNESIUM LEVEL 2021-11-07 06:30:00 Kojo Emmanuel MD BLOOD UREA NITROGEN 2021-11-07 06:30:00 Kojo Emmanuel MD Osvaldo son SERUM CREATININE 2021-11-07 06:30:00 Kojo Emmanuel MD GLUCOSE, RANDOM 2021-11-07 06:30:00 Kojo Emmanuel MD SERUM CREATININE 2021-11-07 06:30:00 Kojo Emmanuel MD .GLOMERULAR FILTRATION RATE 2021-11-07 06:30:00 Kojo Emmanuel MD ANION GAP 2021-11-07 06:30:00 Kojo Emmanuel MD COMPLETE BLOOD COUNT W/ 2021-11-07 06:27:00 Kojo Emmanuel MDrsdestiny DIFFERENTIAL Results CBC 2021-11-07 06:27:00 Kojo Emmanuel MD MANUAL DIFFERENTIAL 2021-11-07 06:27:00 Kojo Emmanuel MD nia RADICAL ABDOMINAL 2021-11-06 15:17:00 Jami Benitez MD Tha rsdestiny HYSTERECTOMY, WITH PELVIC LYMPHADENECTOMY W/ OR W/O REMOVAL OF TUBE(S) AND OVRY(S) INTRAOPERATIVE LYMPHATIC 2021-11-06 15:17:00 Jami Benitez MD MAPPING CONFIRM ABORH TYPE 2021-11-06 14:53:00 Jami Benitez MD And erson TYPE AND SCREEN 2021-11-06 14:49:00 Hernán Harden MD ABORH 2021-11-06 14:49:00 Hernán Harden MD ANTIBODY SCREEN 2021-11-06 14:49:00 Hernán Harden MD CLOT EXPIRATION DATE 2021-11-06 14:49:00 Hernán Harden MD rsdestiny TMP INTERPRETATION ANTIBODY 2021-11-06 14:49:00 Hernán Harden MD SCREEN NEGATIVE OR URINE BETA HCG QUALITATIVE 2021-11-06 14:17:00 Hernán Harden MD URINE CULTURE 2021-11-02 18:33:00 Hernán Harden MD URINALYSIS WITH MICROSCOPIC IF 2021-11-02 17:56:00 Sharla Harden MD INDICATED URINALYSIS MICROSCOPIC 2021-11-02 17:56:00 Hernán Harden MDson COVID-19 (SARS-COV-2) 2021-11-02 14:40:00 Hernán Harden MD And jocelyne PCR-ASYMPTOMATIC MC EKG, 12-LEAD (SCHEDULED) 2021-11-02 00:00:00 Hernán Harden MD PETCT CONTRAST ENHANCED 2021-10-26 17:30:00 Hernán Harden MD INITIAL TREATMENT STRATEGY MRI PELVIS W WO CONTRAST 2021-10-26 15:00:30 Hernán Harden MD PATHOLOGY BIOPSY 2021-10-23 16:00:00 Hernán Harden MD INTERPRETATION COMPLETE BLOOD COUNT W/ 2021-10-19 18:40:53 Hernán Harden MD DIFFERENTIAL COMPREHENSIVE METABOLIC PANEL 2021-10-19 18:40:53 Hernán Harden MD HIV-1/2 ANTIGEN AND 2021-10-19 18:40:53 [facility] ANTIBODIES, FOURTH GENERATION HEPATITIS C VIRUS ANTIBODY 2021-10-19 18:40:53 Hernán Harden HEMOGLOBIN A1C 2021-10-19 18:40:53 Hernán Harden MD PROTHROMBIN TIME 2021-10-19 18:40:53 Hernán Harden MD APTT 2021-10-19 18:40:53 Hernán Harden MD Results CBC 2021-10-19 18:40:53 Hernán Harden MD MANUAL DIFFERENTIAL 2021-10-19 18:40:53 Hernán Harden [facility] GLUCOSE LEVEL 2021-10-19 18:40:53 Hernán Harden MD BLOOD UREA NITROGEN 2021-10-19 18:40:53 Hernán Harden MD Osvaldo son ELECTROLYTE PANEL 2021-10-19 18:40:53 Hernán Harden MD [facility] n SERUM CREATININE 2021-10-19 18:40:53 Hernán Harden MD .GLOMERULAR FILTRATION RATE 2021-10-19 18:40:53 Hernán Harden MD CALCIUM LEVEL TOTAL 2021-10-19 18:40:53 Hernán Harden [facility] ALBUMIN LEVEL 2021-10-19 18:40:53 Hernán Harden MD ALKALINE PHOSPHATASE 2021-10-19 18:40:53 [facility] ALANINE AMINOTRANSFERASE 2021-10-19 18:40:53 Hernán Harden MD ASPARTATE AMINOTRANSFERASE 2021-10-19 18:40:53 Hernán Harden TOTAL PROTEIN 2021-10-19 18:40:53 Hernán Harden MD FRACTIONATED BILIRUBIN 2021-10-19 18:40:53 Hernán Harden MD TMP HCVAB INTERP 2021-10-19 18:40:53 Hernán Harden MD TMP HIV 1/2 AG&AB PATH INTERP 2021-10-19 18:40:53 Hernán Harden MD HUMAN CHORIONIC GONADOTROPIN, 2021-10-19 17:29:00 Hernán Harden MD QUALITATIVE, URINE THYROID STIMULATING HORMONE 2021-10-19 16:40:00 Hernán Harden MD FREE THYROXINE 2021-10-19 16:40:00 Hernán Harden MD PATHOLOGY OUTSIDE 2021-10-09 00:00:00 Elizabeth Ngo MD Osvaldo son INTERPRETATION Plan of Care Planned Activity Planned Date Details Comments Source Future Scheduled Test COVID-19 VACCINE (1) [facility] [code = COVID-19 VACCINE (1)] Future Scheduled Test Screening for [facility] malignant neoplasm of cervix (procedure) [code = 327197040] Future Scheduled Test INFLUENZA VACCINE [facility] [code = INFLUENZA VACCINE] Encounters Start End Encounter Admission Attending Care Care Encounter Source Date/Time Date/Time Type Type Clinicians Facility Department ID 2021-10-18 Outpatient YUN, KAYLYN PATIÑO [id number] 10:48:59 ANGELA Sandoval o timmy 2021-11-06 2021-11-09 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 [id number] 05:38:00 18:27:00 AMIR Oncology Osvaldo so n 2021-11-05 2021-11-05 Outpatient AUGUSTUS BENITEZ MDA MDA [id number] 12:57:11 12:57:11 JAMI Sandoval o timmy 2021-11-05 2021-11-05 Outpatient AUGUSTUS HARDEN MDA MDA [id number] 09:00:18 09:00:18 HERNÁN Sandoval o timmy 2021-11-02 2021-11-02 Outpatient AUGUSTUS HARDEN MDA MDA [id number] 14:17:15 14:17:15 HERNÁN warner 2021-11-02 2021-11-02 Outpatient AUGUSTUS HARDEN MDA MDA [id number] 11:56:30 12:34:16 HERNÁN Sandoval o timmy 2021-11-02 2021-11-02 Outpatient AUGUSTUS HARDEN MDA MDA [id number] 08:29:44 08:43:46 HERNÁN warner 2021-11-02 2021-11-02 Outpatient EL DERECK, MDA MDA [id number] MD 08:11:05 08:25:44 HERNÁN warner 2021-10-27 2021-10-27 Outpatient EL MDA MDA [id number] MD 09:43:04 09:43:04 Jaime warner 2021-10-26 2021-10-26 Outpatient EL DERECK, MDA MDA [id number] MD 07:13:10 07:13:10 HERNÁN warner 2021-10-26 2021-10-26 Outpatient EL DERECK, MDA MDA [id number] MD 07:12:51 07:12:51 HERNÁN warner 2021-10-19 2021-10-19 Outpatient EL DERECK, MDA MDA [id number] MD 10:38:29 12:39:45 HERNÁN warner 2021-10-19 2021-10-19 Outpatient EL XU, MDA MDA [id number] MD 09:39:33 09:39:33 JAMI warner 2021-10-19 2021-10-19 Outpatient EL MDA MDA [id number] MD 09:37:10 09:37:18 Jaime warner 2020-12-20 2020-12-20 Outpatient Hayden CHILDRESS, [facility] [id number] Univers 16:20:00 16:20:00 JOSHUA [facility] 2020-11-22 2020-11-[address] [facility] [id number] Univers 16:40[facility]00 [facility] 2020-10-24 Telephone JESSICA Lozada [id number] 00:00:00 00:00:00 Anibal KYLEE [id number] [facility] [id number] [facility] 2020-10-24 2020-10-24 Telephone JESSICA Lozada [id number] [facility] 00:00:00 00:00:00 Anibal KYLEE [id number] [facility] [id number] [facility] [id number] [address] 2020-10-23 2020-10-23 Outpatient R TROY, [facility] [id number] Univers 17:00:00 18:27:07 CASTRO ity [facility] 2020-10-23 2020-10-[address] [facility] [id number] Univers 17:00:00 17:00:00 [id number] ity [facility] 2020-07-26 2020-07-26 Outpatient R [facility] [id number] Univers 17:20:00 17:20:00 ity [facility] 2020-07-26 2020-07-26 Laboratory Lab, [facility] [id number] 09:02:18 09:22:18 Only Fam Pob I Health [id number] [place] 4.2.7.2.686 Professio [phone] [place] [address] Office Building [facility] 2020-07-26 2020-07-26 Laboratory Lab, [facility] Fam Pob I [facility] 1.2. [id number] Univers 09:02:18 09:22:18 Only VickTamarae A Health [id number] ity of [place] 4.2.7.2.686 Prabhu as Professio [phone] [facility] dicma nal [address] [place] [address] Office Building [facility] 2020-07-26 2020-07-26 Letter Pcp, [facility] [id number] 00:00:00 00:00:00 (Out) Patient Health [id number] Does Not [place] [id number] Have A Professio [phone] [place] [address] Office Building [facility] 2020-07-26 2020-07-26 Letter Pcp, [facility] [id number] Univers 00:00:00 00:00:00 (Out) Patient Health [id number] it y of Does Not [place] 4[place].2.686 [place] Have A Professio [phone] Mt dic[address] Office Building One 2009-03-14 2009-03-16 Inpatient O ALEIDA HOUSE [facility] [place] [id number] Univers 18:53:00 15:30:00 ALEIDA HOUSE 8 [facility] Results Test Description Test Time Test Comments Results Result Comments Source Glomerular Filtration Rate 2021-11-09 07:44:20 Test Item Value Reference Range Interpretation Comme nts eGFR-AA (test code = 66288-5) 147 See_Comment Normal eGFR: >= 60 mL/min/1.73 m2Note: The eGF R is calculated using the CKD-EPI equ ation. The eGFR declines with a ge. eGFR <60 mL/min/1.73 m2 is considered as "decreased". Th is equation should only be used fo r patients 18 and older. Ashley g to the National Kidney [employer] on's Kidney Disease Outcome Quality Initiative (KDOQI) classification and 2012 Kidney Disease Improvi ng Global Outcomes (KDIGO) Clinica l Practice Guideline, the stage of CK D should be categorized bas ed on estimated GFR. Stage Descripti on GFR mL/min/1.73 m21 Normal or high GFR >=902 Mi ldly decreased GFR 60-8 93a Mildly to moderately decr eased GFR 45-593b Moderately to s everely decreased GFR 30-444 Sever dorene decreased GFR 15-295 Kidney f ailure <15 [Automated mess age] The system which generated this result transmitted reference range : >=60 mL/min/1.73 sq. m. The referenc e range was not used to interpret th is result as normal/abnormal . eGFR-VIVEK (test code = 71200-9) 128 See_Comment Normal eGFR: >= 60 mL/min/1.73 m2Note: The eGF R is calculated using the CKD-EPI equ ation. The eGFR declines with a ge. eGFR <60 mL/min/1.73 m2 is considered as "decreased". Th is equation should only be used fo r patients 18 and older. Ashley g to the National Kidney Foundati on's Kidney Disease Outcome Quality Initiative (KDOQI) classification and 2012 Kidney Disease Improvi ng Global Outcomes (KDIGO) Clinica l Practice Guideline, the stage of CK D should be categorized bas ed on estimated GFR. Stage Descripti on GFR mL/min/1.73 m21 Normal or high GFR >=902 Mi ldly decreased GFR 60-8 93a Mildly to moderately decr eased GFR 45-593b Moderately to s everely decreased GFR 30-444 Sever dorene decreased GFR 15-295 Kidney f ailure <15 [Automated mess age] The system which generated this result transmitted reference range : >=60 mL/min/1.73 sq. m. The referenc e range was not used to interpret th is result as normal/abnormal . MD Dominguez [id number] 07:44:19 Test Item Value Reference Range Interpretation Comments Anion Gap (test code 8 See_Comment [Autom ated message] The = 87188-2) system which ge nerated this result transmit jeremías reference range : 4 - 14 mEq/L. The refe rence range was not used to interpret this result as normal/abnormal . MD SappMagnesium [id number] 07:44:18 Test Item Value Reference Range Interpretation Comments Magnesium (test code = 92553-9) 1.9 mg/dL 1.6-2.6 MD SappChloride [id number] 07:44:17 Test Item Value Reference Range Interpretation Comments Chloride (test code = 103 See_Comment [Auto mated message] The ) system which ge nerated this result tra nsmitted reference range : 98 - 107 mEq/L. The refe rence range was not u sed to interpret this result as normal/abnormal . MD Sapp.Serum [id number] 07:44:16 Test Item Value Reference Range Interpretation Comments Creatinine (test code = 2160-0) 0.49 mg/dL 0.51-0.95 L Lab Interpretation (test code = Abnormal 88842-4) MD SappPotassium [id number] 07:44:15 Test Item Value Reference Range Interpretation Comments Potassium Lvl (test 3.9 See_Comment [Automa jeremías message] The code = 2823-3) system which generated this result tra nsmitted reference range : 3.5 - 5.1 mEq/L. The reference range was not u sed to interpret this result as normal/abnormal . MD SappBlood Urea [id number] 07:44:14 Test Item Value Reference Range Interpretation Comments BUN (test code = 3094-0) 12 mg/dL 6-23 MD SappSodium [id number] 07:44:13 Test Item Value Reference Range Interpretation Comments Sodium Lvl (test code = 134 See_Comment L [Au tomated message] 2951-2) The system [employer] h generated this result transmitted ref erence range: 136 - 14 5 mEq/L. The refe rence range was not u sed to interpret this result as normal/abnor mal. Lab Interpretation (test Abnormal code = 54159-7) MD SappGlucose, [id number] 07:44:11 Test Item Value Reference Range Interpretation Comments Glucose Random (test 103 mg/dL 70-199 Effecti ve 04/10/16, the code = 2345-7) glucose refer ence intervals have been updated based o n [place] [employer] talita delines (Standards of M edical Care in Diabete s 2016. Diabetes Care 2 016; 39: S13-S22).Fastin g blood glucose:Normal: 70-99 mg/dLImpaired f asting glucose (increa sed risk for diabetes or pre-diabetes): 100-125 mg/dLDiabetes m ellitus: >/=126 mg/dL Ra ndom blood glucose:N ormal: 70-199 mg/dLNot e: Random glucose >100 mg /dL is associated with increased risk for diabetes MD SappCarbon Dioxide [id number] 07:44:10 Test Item Value Reference Range Interpretation Comments CO2 (test code = 23 See_Comment [Automated message] The 2028-05) system which ge nerated this result transmit jeremías reference range : 22 - 29 mEq/L. The refe rence range was not used to interpret this result as normal/abnormal . MD SappMwsfbmfsIugjphdtrvjy8931-87-97 07:00:43 Test Item Value Reference Range Interpretation Comments Neutrophil % (test code = 61.6 % 42.0-66.0 770-8) Lymphocyte % (test code = 29.9 % 24.0-44.0 736-9) Monocyte % (test code = 7.1 % 2.0-7.0 H 5905-5) Eosinophil % (test code = 0.7 % 1.0-4.0 L 713-8) Basophil % (test code = 0.4 % 0.0-1.0 31979-8) IGRE % (test code = 0.3 % 0.0-0.4 IGRE % c ount 49725-8) includes Metamyelocytes, Myelocytes, and Promyelocytes. Neutrophil Abs (test code 4.18 K/uL 1.70-7.30 = 751-8) Lymphocyte Abs (test code 2.03 K/uL 1.00-4.80 = 731-0) Monocyte Abs (test code = 0.48 K/uL 0.08-0.70 742-7) Eosinophil Abs (test code 0.05 K/uL 0.04-0.40 = 711-2) Basophil Abs (test code = 0.03 K/uL 0.00-0.10 704-7) IG Abs (test code = 0.02 K/uL 0.00-0.04 21762-2) Lab Interpretation (test Abnormal code = 24073-2) MD Sapp.[id number] 07:00:39 Test Item Value Reference Range Interpretation Comments WBC (test code = 6.8 K/uL 4.0-11.0 6690-2) RBC (test code = 789-8) 3.22 See_Comment L [Au tomated message] The system [employer] generated this result transmitted ref erence range: 4.00 - 5 .50 M/uL. The refer ence range was not u sed to interpret this result as normal/abnor mal. Hgb (test code = 718-7) 9.0 See_Comment L [Au tomated message] The system [employer] generated this result transmitted ref erence range: 12.0 - 1 6.0 gm/dL. The refe rence range was not u sed to interpret this result as normal/abnor mal. Hct (test code = 28.6 % 37.0-47.0 L 4544-3) MCV (test code = 787-2) 89 fL 82-98 MCH (test code = 785-6) 28.0 pg 27.0-31.0 MCHC (test code = 31.5 See_Comment [Automate d message] 786-4) The system [employer] generated this result transmitted ref erence range: 31.0 - 3 6.0 gm/dL. The refe rence range was not u sed to interpret this result as normal/abnor mal. RDW-SD (test code = 42.9 fL 35.1-46.3 39555-6) RDW-CV (test code = 13.2 % 12.0-15.5 788-0) Platelet count (test 239 K/uL 140-440 code = 777-3) MPV (test code = 10.5 fL 4.0-10.4 H 92357-8) INRBC (test code = 0.0 % See_Comment The INRBC (instrument 74473-2) NRBC) value ref lects the enumeration of nucleated red b lood cells contained in a 200uL sampleof whole blood analyzed by the instrument. Thi s value maydiffer from the NRBC value repo rted in a manual differential,wh ich is based on a 100 cell differential. [Automated mess age] The system [employer] generated this result transmitted ref erence range: <=0.0. T he reference range was not used to int erpret this result as normal/abnormal . Lab Interpretation Abnormal (test code = 68188-3) MD SappTMP Interpretation Antibody Screen [id number] 18:34:25 Test Item Value Reference Range Interpretation Comments TMP Auto Neg At the present ABSC Interp time, patient (test code = plasma shows no ____KULWINDER TY 7535) evidence of RBC LYNDSAY MOLINA MD alloantibodies. - [id number] jeremías by: KULWINDER SHIELDS MD - [id number] Date/Time: 10.17 12:34 PM BAND PRESSER Transcribed Demetrius e/Time: 11.06.2021 12:3 4 PM CSTElectronical ly Signed By: KULWINDER SHIELDS MD - [id number] on 12:34 PM MD SappAntibody Rkihni7914-32-16 16:42:22 Test Item Value Reference Range Interpretation Comments ABSC. (test code = 890-4) Negative ABSC MD SappClgbvgtnABWLf9365-99-03 16:42:21 Test Item Value Reference Range Interpretation Comments ABORh. (test code = 882-1) A NEG MD AndersonClot Expiration Hygf6972-81-82 16:42:20 Test Item Value Reference Range Interpretation Comments T & S Expiration (test code = 11/09/2021 5318) MD SappConfirm [id number] 16:42:09 Test Item Value Reference Range Interpretation Comments ABORh Confirm. (test code = 882-1) A NEG MD SappOR Urine Beta HCG Zrsotxbljgi4260-64-70 14:27:27 Test Item Value Reference Range Interpretation Comments OR Urine Beta HCG Negative Negative Very dilut e urine Qualitative (test specimens may cause code = 8927) false negative results. Suggest repeat in 48 hours with a fi rst morning voided urine or request quantit ative serum beta HCG test. The ICON 20 hCG Ser um/Urine test employs a solid phase chromatog raphic immunoassay patricia hnology to selectively detect elevated levels of hCG in urine with a high degree of sensi tivity. MD SappCOVID-19 (SARS-CoV-2) PCR-Asymptomatic [id number] 05:45:38 Test Item Value Reference Range Interpretation Comments COVID19 (SARS Not Detected Not Detected CoV-2) Result (test code = ____This test i s a 87227-7) qualitative reverse-transcr iptase polymerase fish n reaction (RT-PC R) developed for t he Yovanny MERON 680 0 system and inte nded for qualitative detection of SA RS CoV-2 RNA in nasopharyngeal and oropharyngeal s wab specimens colle cted from any indivi duals, including those suspected of CO VID-19 by their health care provider, and t hose without symptom s or other reasons t o suspect COVID-1 9. A fact sheet for patients provid ed by the manufacture r ([employer]) c an be reviewed at:https://www. fda.go v/media/368395/ downlo ad. A fact shee t for Health Care pro viders is provided by the account services representative ([employer]) and can be reviewed at: https://www.fda .gov/m edia/832631/lauren nload Results must be interpreted wit hin the context of all relevant clinic al and laboratory find ings and should not form the sole basis for a diagnosis or treatment decis ion. Positive result s do not rule out bacterial infec tion or co-infection with other viruses. Negative result s do not rule out SARS-CoV-2 and must be combined wit h clinical observations, p atient history, and/or epidemiological information. "Presumptive Positive" resul ts are due to partial amplification o f SARS-CoV-2 targ ets and indicates l ow amounts of viru s present in the specimen at or near the limit of detection. Regardless, individuals wit h "Presumptive Positive" resul ts should be manag ed per institutional guidelines as individuals pos itive for SARS-CoV-2 virus, including use o f appropriate inf ection control protoco ls. Internal contro ls are included to ass ess for possible amplification inhibitors. If inhibition is detected, testi ng is repeated and if inhibition is confirmed the specimen is res ulted as "Invalid". W hen an "Invalid" resul t occurs, it is recommended to wait 3 days before submitting a ne w specimen for te sting if clinically indicated. Thi s assay has been approved by the FDA for use only un aundrea Emergency Use Authorization ( EUA) in laboratories that have been CLIA-certified to perform moderate-comple xity and high-comple xity tests. The performance characteristics of this assay were verified by the Microbiology Laboratory at [facility], CLIA Accreditation # : [id number] and CAP Accreditation # : [id number]. 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 Swab Source (test code = 30823) COVID19 SARS Pre-OR Procedure Indication (test code = 07585) MD SappPathology Outside Cdwkpgllwdnofz3278-75-94 23:16:27 Test Item Value Reference Range Interpretation Comments Materials Received (test b2cinCNzMWXrtVLhZiLo code = 9973) APQySRSgu0ujMUVaeMOd ZzEwMzNcZnRuYmpcdWMx MDRjYgKju5cmq045nCAq w6bcXIEfByV1xGMkVMTb pSGlH991GWFyLJzoo1yz u0DhCVCfiRSfy4F6DKTZ oiyxxPo8dQulJ86bp1U9 VlsmS4rtZGTnVJVvA6Op JQ7bCXBjCxz3ZEK6ITS6 NQBvPLHoX0HeOS6hSBUq pHUaHOk4g2gfuXbiZSHw IBZ0i9ufUYkquhRyFZ9t tr5cnNa7d8bkizClNYTu TYBhfJPDNERgK5YoeWpt Wp2yuSi7jIhqSaduBJO2 Oer8WD6gxs46egs1lUfr FLDlgiozDmN9OQmkACIm djofEXa3IFbnBTXggXhp MFxtYXJncjcyMFxtYXJn mVU5CENiaSBiZ4TnRFCv AKoxGLQjrhz9FvFnMj5q jJAfhUbuFZahp7nvy5va eULiZdf6TKGoLxZfHhoo ZXkyl0Lsr4yzTXTsbf8j RPM8nJAdvAada7Z7qQXx DVDwoJPqjjFmYXRjfw43 hYSdxOHlrMNwgc6awhRn aSIvvLTqCZT1sRLwtvDa LPIzjOPtLNYrRJ2dpSVp FZQhtX9vqdyqTROtMiGk wvhmHEXqxQglqzPhHx7o bPmoXXB7TKreU9hceW3o JvY9TBpjF1uuwN5oGPl0 IPxtqAF2WTSpzB8aCP8x fmtjs7phCgZsTY5deveq m6hoEoYpIZ7blhe8i7ri BSM3BRdvUNVmEeI9ivL5 NDBcaGVhZGVyeTcyMFxm k502OGX6RuQqRUBea9Hs V8SdfQupH43fjVykY26s JVEyhIxxrS4voFqbiT5a UyHwSqUqEPa0dl37GSy7 oyjcvGcxAUc8nxFfICLi YHF9TMElfJDbDXLbF2p9 boFfEGZeJNY7RBYluMBq CENpC4k1ckAlORR4RDq8 cnBhZGRmdDNcdHJwYWRk YjBcdHJwYWRkZmIzXHRy zKMnlICulZUndO5iyBvy FQFqgSBpuC0uUEC1FDXf cmgzMjBcdHJoZHJcbHRy yl27ANWqcnFhiBAufXdr iMIaIIA9BYByBCXySCOm HAW5FQJnDbTsqsAsLRgw bGJyZHJiXGJyZHJzXGJy PMK2EQYqBnObipUjEGeg bGJyZHJsXGJyZHJzXGJy SZJ0SHZkSrOamqKpLUkw bGJyZHJyXGJyZHJzXGJy GBA9SXMnSdNqsaBbJHho bHBhZHQxMFxjbHBhZGZ0 J2mavYTbBHYsHXtkhTJp SRWwI7fvnEIzFVaqDQOz cGFkZmwzXGNscGFkYjBc P1pgHZCdVtUzZ9IosOp7 MDAwXGNsdmVydGFsdFxj pYNjQET7KZReZWVoXSUc JHV2HSCkDeGupeGfVJla bGJyZHJiXGJyZHJzXGJy GTF3ZXLiZyImcxPxJEvb bGJyZHJsXGJyZHJzXGJy BYL5CDKeRfYvwiOkTUba bGJyZHJyXGJyZHJzXGJy POP4QZWhUiEsdsAgPShu bHBhZHQxMFxjbHBhZGZ0 F9etbSRfYKYpLKnkjJCe ZWQeO8bnkMXeKTzkSDGt cGFkZmwzXGNscGFkYjBc B0nnLIVsKmRaU5YwtCg0 NjAwXGNsdmVydGFsdFxj iHSoUGD3XEOdMTVmSEEn GME6ABKjCaGxvaNnJEyh bGJyZHJiXGJyZHJzXGJy PBO5CBHeClTvbbZiJSwj bGJyZHJsXGJyZHJzXGJy NAF6FVHtHnBmtrZuUGvs bGJyZHJyXGJyZHJzXGJy HZC9JMApKtRzemTqOUai bHBhZHQxMFxjbHBhZGZ0 C2ukuTVpYWZqJGnbkLAr KUNiI2aeeBKyOKusQEDc cGFkZmwzXGNscGFkYjBc S4arISUjRjSiV0XpjIl9 PxDfQICtyfAoiP64Vmwn y1MsRTQxLQG6SNsnYEgl bFxwbGFpblxmMVxmczIw KMllwvzhNTQyQBwqU9lh OrFiFCYwlEutIVtln1Il XGYxXGNmMlxmczIwXGIg NMGbUMFgxB6uUyuzO2Ws mQ3oQHtwKwgmS2cpQJXb r0PvmZ1wMWbizVJrxmqb MVxmczIwXGxhbmcxMDMz ARqkN4zzJcFmUMGogPri FThny5XwSRQcKZUfGixh yyUbOKu6jgHvNNOziSxo fASxYWehrsJamSlfc2Ls gaEilCqrQPFdGLd2tsSy nfcrnZj8vLQpqNdpYQSe fJkkfY6jBbBnQfCfWDcj bGFpblxmMVxmczIwXGxh ymqpHGPtCMhnW5rqZyIc IZJlzWtfLPsuc5ByCQBx CCYgUnocmxMwWAKgQ19o bGVjdGVkXHBsYWluXGYx XGZzMjBcbGFuZzEwMzNc aGljaFxmMVxkYmNoXGYx QDqbT2icPkDsS8OlCHAt CjNkyFIfR2yaW1CcwUob YXJkXGludGJsXHNzcGFy ATW9zWZbvoVdwGUhgUTm JNNfITayCRA9wPOwymwk aGWrunpyQGpcmdT0MBFn YWluXGYxXGZzMjBcbGFu ZzEwMzNcaGljaFxmMVxk PsBqNYLjWQvkD1dkVpAm W3WxYNFvWsOlNvKJOHBz aXZlZFxwbGFpblxmMVxm czIwXGxhbmcxMDMzXGhp P8uvFkNeDJVbcNrpVUeh o1XcPDUxESNqInxzvrQu MNr5aeCnPPAcoMzydJ39 Axhmdu32TMVxw1pyIHDy O7SvoAEkSBUjfMNbQWfz MDhcdHJwYWRkZmwzXHRy cGFkZHIxMDhcdHJwYWRk ZnIzXHRycGFkZHQwXHRy dZHfEAS3P9b2ftWaFEQn YSn8skLqQUBxHiGeeRZo KPJ9HOo3KessjzT9vWPj J6h7ZprslnSsAGrgeFVk uy41EDIqtrGdiNHkrXuk dEAfKAE1BALhQTUnPMPm AHL0JKLpTbYwglJxEWrt bGJyZHJiXGJyZHJzXGJy JEH8OYNbDmQekdGqGDym bGJyZHJsXGJyZHJzXGJy VZE2EIXxNuHivcPzUTmr bGJyZHJyXGJyZHJzXGJy ACO0MKRsAdXfwnXfFZmp bHBhZHQxMFxjbHBhZGZ0 H0ijvCXiUFFaWYpujGSu NGKiX7nkwWBqQDvrVLQr cGFkZmwzXGNscGFkYjBc M8flRKCeMyWvS2HhmKf3 MDAwXGNsdmVydGFsdFxj eBYaJTC5YSQmTHPtSSMp DPK0RNOjLcJaduSpNUag bGJyZHJiXGJyZHJzXGJy VJO9HDArFjWlwyNbFBhy bGJyZHJsXGJyZHJzXGJy ZNM6UKTqZkXeutVdQFvo bGJyZHJyXGJyZHJzXGJy HDS6XPXtQxRujxYbUKzy bHBhZHQxMFxjbHBhZGZ0 I2sxsVMuGKMwNGgawGAi YIJjM4wdtWYfCRyoWAYn cGFkZmwzXGNscGFkYjBc Y8acOGKyHtYkH8OibXw7 NjAwXGNsdmVydGFsdFxj jQLeLFN5TIOeAKInIPVs VWO6YDKgZxZdidRgGVkz bGJyZHJiXGJyZHJzXGJy TDR2BHQnWcMbwlZbHTsg bGJyZHJsXGJyZHJzXGJy CQH9EQKtFnQinbKrKGgw bGJyZHJyXGJyZHJzXGJy ZZO4RWImAoLmznZvEYlj bHBhZHQxMFxjbHBhZGZ0 E3ifbIVqGAYdZAofdGUn DIPsQ6fqfBKxBNshGYDc cGFkZmwzXGNscGFkYjBc H0ksJDCpJzEuZ9NelOv6 VgPwRPBrbjQwdP04Vzym k9RkENOnKRL4YKwpXQnj bFxwbGFpblxmMFxmczI0 XHBsYWluXGYxXGZzMjBc bGFuZzEwMzNcaGljaFxm DUzgQjVfMCOeGAzuN9kb RwMgV3QmEURgStGwVJ6a UzIyLTAwNjkwLCAzIFNT NWReELMOV3MRIormFTTV H3NwiCytyA1jVbVcUbSj TNmgUT7xCLQuE5kyoYGn HSScSGJwM3srMcVxhT6z aFxmMVxjZjJcZnMyMFxs dHJjaFxjZWxsXHBhcmRc uR22Knzdz5RbGPUwSWP8 MFxzMFxxbFxwbGFpblxm SErfseT8UIIsPQiiTGRz XGZzMjBcbGFuZzEwMzNc aGljaFxmMVxkYmNoXGYx JRjjE9lwOoAxS8ViKIAm BnThGS5jHR6yXOKyVGZd YWluXGYxXGZzMjBcbGFu ZzEwMzNcaGljaFxmMVxk SqTgBQWfQMbrS7moNqQg C0WgITEvRmKlzMPwD2dy R5IdfZyxNPToYTrbvDFv JZBcbTAfPYM5eIItxtAi oMnabDeaaI3mZjEuKdYl NFxwbGFpblxmMVxmczIw JIrkvjulFLLbVJimQ1bp QiQhLTCqtQarWZuzd7Sv XGYxXGNmMlxmczIwIDIv TT0lQUVvMUFpLMpuPZEj XGZzMjBcbGFuZzEwMzNc aGljaFxmMVxkYmNoXGYx HIpvD4luGdLtG7JfPXLs HgUznNYjL0cxR3PqiNqq npNnxHtvs9imwNOyICop n7CutqVgxVvrVNYpJWBi XHBsYWluXGYwXGZzMjRc fOhioI1lGdBpYsYuPHig GS6yCAQzZ6yvzVQkKTQf JRQhI2ehWeDdwC6wyEtf MVxmczIwXHBhcn0= Diagnosis (test code = d7ilxUMpLYXsjUP0EkZb 34) IYZxc5qbs4OwwNGooHAw BTdtkSCxipNupm15mFI5 mO47JC0yBNBwHrN8BOAa dsQ7Pjl7OOXyKDZkaURi S483e6tsh7ctwlElxYO9 QGKbJBElL3CnVN0oFYFr gHFvH38gsLTpNYX4LKRg SHKtvROmIECtTQU0IRHk dNHrG8beOZEhUS6fxfkt SFocAZaqKVIcjQQ4NSMu eHXoY5GkSADyQUsyOZIy erg5YbToXk3cqGUrfBff MFxwYXJkXHBsYWluXGZz SpDmH4HeIPSnslZuFO42 eCJoFIJql2veOJAaMHeQ MdPqHEA0YPNvSCfvXhFd SUNqsGMfOOvRZ1dmAiHb KSwgZGVzaWduYXRlZCBh iwNcLHQjZWImmzKcM1Ns TRYjy6WqfLhibYUjKKxn NzIwXGxpbjcyMFxwYXJc qPynQDPhFJqbeaF4CESr C6KaEUHXVWsDZN9NNkOC IsFXPyJZZ9vDXEPVO51N TEmkMUmBQgGCWX9VXLYT IVKxT1PBIJ1MHIDzY5VE RLXJYQTCMK2NZRMfYIqK PKSqJ38VPJOYOXmysSKq FWEfwvIvR4XzQIKunjUA XR5DAVZiaMTnvP== Comment (test code = f9yizSUwNMElcOR6KeQa 9835) EEXqm6any3ClnAPirZSk BTrkyITrywJonq40cSM4 wV16RG4nNUWuBfE5XXDn ehF6Apj8PZJzUICquVYe U604a4jak3iftkHrcKE6 RFMdWJZfO3LuXO7nASSc qOTyV82nvVVdVLC2HHNk GMRdlEBoOXTpWBG1PHGi gIEtC0wqXNLiZY5vtydj KGrlBEypCQWhgBB4XEKj bXQdG3TiHRUbTDaiKEYv hfe5KeVyMv0rfJLbiPzm MFxwYXJkXHBsYWluXGZz QsMnE8FyRLKFmAIguNY7 TNQpgX0ncD7ygCrrbC5h aGVtaWNhbCBzdGFpbiBz kN74ojA6tFC1HICqDUI1 kB1njiCuEVjjpxKyhwQg dI4tzQTeczEqQu9dSVKK UJ68SlZBsIybUSNnd3Hu oMIoySIli8R5wvW2pMXt QQAstrEgVWrqK55ve8gi LlxwYXJ9 [employer](s) (test l9txtRBqVNKfgLY7BgPn code = 9841) WVPaz6clz4LjrGJwuBZe JTrqwJDswxSivk31zKP9 gT00IU8yBIIpWcK6HBBq aiU8Zvm2QSRwUVWgwAJh A722q8qzv5uxplMbzMN5 XWHtOXUjL6AnRB0pOZZn gBKpL51bsWEpQFZ0UXKe GBOvbZDqWLQqKLQ2NZOl nDRdY8gtPUNpBH9hjffg SNogWUitSBCyyWH2EQDe kKEuW0AqHXOeBMmxUJJf kfq2PoUpQl5fhZGonPea MFxwYXJkXHBsYWluXGZz MjAgVDogXGNmMSBTMjIt KOX2EKHeCQVuTQMbhv0= Disclaimer (test code = u5erlHPbNODotFCoZuLu 9897) KEVqLNUcp8jaUPVniLQc ZzEwMzNcZnRuYmpcdWMx EJDpHfGqy5htc570fQAt l1lxYOIjQtH2bTDxMFNa fIVaA578TJYeIYhss8bk d0PnPPPwwJCbb4P3UWHX udkyzQs7uKmuY93tv9Y6 CnduX4kpKADrLSVyI1Rt SY3nYWNsWfs7EUN0MDY3 QGKzZZLkH4OtDZ5wCQHh tEKvSVd2l3nduYkaHPDu NUD7z6rnGUyyxeCiFF6a im1ltMo6e3bnfwSnNPZn JZBcbMENIQQnI6JkpZrb Ox2uzAk8zPicPrqmMTN9 Iur9UG7vwf88fvh7nEju RGXrqifyFiT6ZFcrGHXh pkwvRXn3IOroMHNfbBY2 EUAwcMTkW4EyWSFoFV6f esh0NMA8RGagKMXcOjP9 NDBcaGVhZGVyeTcyMFxm x746VIW8LyHlCB7gU4Xn g9R4eI6slBQjLTXxdPPr PoTgMNWqyc0lbLFxHAtl j8JzJFF4jkR3wSCpxYWe TQEjUA62Abyub0QyVbbt AXX3BGIzaeYpk2Zki0ff BhFdheBjN4iaL5IwWUMm NVDxXJAaYbPxrlNdq5Dl j5LdbPHrhUt2c7uxKFSh XWSdyZcri1ldDFX9RGNf Y5L5hVUex1kdHClpKJEp tCY5zsP6YOBubRYdN5Cg pT5wUXFfXG9oouw6v0wa VVQ5WGgyIHUfNnE8vwO6 NDBcaGVhZGVyeTcyMFxm x513AYA0OsNnAUGem4De Z2FdeYaqK97yzScdN24j IZIxyFvyvV9bfVbycR6v ZjBcZnMyNFxxbFxwbGFp fovfATbdobX4LGyscdjc FAQzPQgsJ1ylYjBeQAUl cPctEGdrn3CrRKNtWITm QoweqdL4DFHVh39lPCNo i3KvJMMsyK1tbYWvLLbn yoCrhCQ4RGwsgeWbReEa qfKqWIGenE1xKFGbKD9n PEBjlmWywd7kbiLfSUKb SNGsZ3EddjhsxKmktcEb FFJecd9xydIkNIN8ZPLJ XD5PTGSnKHUwu97zHJOr lQqqxC1wgLVtmgFaZIRc z5VjgE7ujBJAPRGcV3zh HB1dFGxlt4JlrOUxgXPw mSZ5GNWrd7PoAoVmpkOm gGHfwJGlF1GuoIemM1up DCZbDJLxifXhoYNlu4Rd NATwpBV9qLUjNT5GJnOH s52yVVVcCBNCetLrKIOp pPokjZW0pqW7eV5nKwZB ZiBhcHBsaWNhYmxlLCBj d247uf6tscD0AIGeBYXw azmun0DrZSQxMMOyaU40 UPBqAUNcml4yqeuwnKKw fcOlD2Eflvq6nV5bITCo YWluXGYxXGZzMjJcbGFu ZzEwMzNcaGljaFxmMVxk GhMbNISpBJjlJ8kcVcGo ZnMyMlxwYXJ9 [facility] Ftumdiszijdoik3079-01-08 00:09:42 Test Item Value Reference Range Interpretation Comments Submitted Clinical History o3njsZPlIDWwn0nhWKY (test code = 65520) mbGFuZzEwMzNcZnRuYm pcdWMxIHtccnRmMVxzc 3SeR6CtSnMsFJgjwiJb XGRlZmxhbmcxMDMzXGZ 0bmJqXHVjMVxkZWZmMH qfIm1jgOYuqFbqKxIdQ GEro6fnkkMUmzvahGe6 x8ayCHWtDgQ0kWIpULy fI3cjhzOnbBZaRZJwTK y3yB96KNBjxJ3eeSSrE RwdddDwWmB0IKbtQDEz GmT4KGGgrFIhAKZdL3r yZWQwXGdyZWVuMFxibH YtBZK1rWrxz9F5oTViq GVldHtcZjBcZnMyMiBO r6FzIKm2cRlrL8KnEDO jUoY2rTLiYVEmAVuhFZ QcTTQexsL9gT43IQgnj zF3uEIez9Kzf19zx486 xC8dnPNqVAG3UKTzXEU hhKHfBFCuVMT4IAJxmX AlT9yqRIMaQK6qhiffC DmqYXiqRRKuxWA1QPQy pMUtE1KpNBInNQceJLM wknc2UzPcTy7fvVCapR gtGDlsq9ymm1zcwSEfL mh0KPKlHcMmCkvoAQbp i8Wab4hxSQEppf3nUTA 7iFKpbZbiq8E9jHZtXU SthAPaavNoBATpGlM4D UhdOO1eyo78BOVuVGA4 fu4xtAWslOpfuoGgvNQ zVVwhG9McDLUie980ID VfY0IdLVRtg1C8mvAlC vTqBHWnzVI9ncE3BPXm LBx4xQSspkZ7jnDadZR rM2hzqQ6sYUTjZV1glz udi2kcICrpTMliOFCwu BA4vyL2BXQftTKwT6Xf kV4pJWJkALvjQMNeorf 6LoTmYd0gkZXkhHkwLE xzYmtwYWdlXHBnbmNvb nRccGduZGVjXHBsYWlu XHBsYWluXGYwXGZzMjR cbZxysRrtzK7nGlWdRc UeFGzpPQ3lMZLzR1rgd OXrGEBoZDBiM6yuEdEr uI9irLzcXYxrpzLuVZ5 nd0HmNZUcHQMqBImaS4 1awwCmb6UtFAtiW6Fuw tf6KAiQYIZmXU7yuDLb XTCkv8v3jBXyDOZazjZ yO0InFGszN4mxzwmzff SOPEMrYF3KMNOsr3NoO 0K6Xh73BBOcROZmKThi XGYxXGZzMjJcbGFuZzE wMzNcaGljaFxmMVxkYm OaYFUbLUlnL2yqQfKfJ fXqNnzkDVN2fG== Diagnosis (test code = 34) h7eafSKuWWMgySF7UlN rULVij2ncr9HjiKTluD EmRKuwuJGnruQwzs07a LH6kY41SJ4tNYWiEmA3 EMEbuyQ2Cjz9YQUsQUQ wxDWcZ089g6una7pigd PqzGU9cNviKIXkfhjbU nI5FLxiPYFqjqknISe3 SNcpEZMexYX1JTWbnLH fU3RfJZKwQC4bdaw7NJ I3GHhfKUGvOeM6DNLzh LNsABEbaNveDQylt766 POU2EeAkFOSqhbMvwOl xbK3lGjOyIKEBZgZMXV W3lWktHKnsPATsxshvh K3pacjujUQoLZYnDkVr JZNSR7CSVVTSNWDXZNK FTlRJQVRFRCBTUVVBTU 9VUyBDRUxMIENBUkNJT i8KTB8mTGXCLWWHY32M CM0RRYxcWRAdFotmIFP hcn0= Comment (test code = 9835) c6yzmZXxMNSzyYK9PzW aRGWjs6roe1GvqXTmhG ZrRMdobLHlbtQjlg90g UV2dQ89YU6pNVShUcR3 YLVnycP6Jfg4QPIlECB ycHJaN122l8raf1ekmn ZrgII6wFosDJVgkanoH vQ2THjtPRNuufstSYg2 IIseLLYoxQB4JVYnrAT yH1HpXVFoXP0bomf6QN P4FPxrWFVxIwS2LIPln GTgVIEjeSzqVKach790 BVP0LiNkNXYcxxDsvQh owL4eVtOvEXZKcG50lc 1myIO5m2ViIT9xW4BtQ ZB5YKuoqpNhdaRoyRKj Wr9xsIGrEETpRXFilP9 8LBQyTJHmGA2seACjnU ljIGNlbGxzIHRvIGJlI NCvx8j5qCOoORVzdiKf ZCFsBY8mPEKbTcNce0R co65zWHEfnDUgeLZuQV sni7zbkZXursHhMSUxm oXiGt0aVCA8efZmcC1c mMsfnI3qKQ4rEFHzkh6 sl9qfOS6wtc4eHK7lz8 c9vVTokOOnpKSvgqH0o N3iDXVavlFDRh9CBFEu rWUqiPKfGz8aeJWjFZX fHDJsxfIdi1TqmNo3EA 4gVGhlIGZpbmRpbmdzI GImVPChw89izLU4LJ06 VPieiCkfhLnzISXiz5T dDWMbVIypa4Dqhs9diG FyXHBhciBXaGlsZSBpb oIlm3duqoChfzBmBJZm XZA2orQxgwl5kA8iTCY 6gm7kTSWeoqPpblAqCL 78FUO1oLVtxTIolpAcU aUrqLTguJVdAG01TOEj RKIpsIprfkzkz1Aop17 oQFMoZPP8WS6hAA01rC JcLTDkI9Kfl77zawurz GltaXQgZXZhbHVhdGlv nwXfrlJzSHIzDBW3bDW eAcQyguQgg2mvoxWiLZ 0qv6BoKdHyROQ8GEGnu Z7hCGJczaJ2dRgeDGYm iISzTF8aDAeqhVkcloD tF8RbLYDjdO88STHty6 8hjFOnky39TMsqHK23p WZpZWQuICBccGFyfQ== Gross Description (test q7ofxOHaIUOcrKTURGd code = 1035755882) wMFxhbnNpXHNwbHRwZ3 VoiuxgLNgyCR6fAG2fv MqmlUVilBRhER1NDRVf ZmYxXHBhcGVydzEyMjQ jOZSnwCTfyHS9LIEgKR 1hcmdsMTgwMFxtYXJnc nV7CHJovNUgN0PjIYLw PE4styyaDCD1JCfffX3 cniHIMzfrXe3ejBTlfP tcZjFcZmNoYXJzZXQwX TJxmLbiXJEuKEn6kQ3L IkhxV65pg7Z9Qyj1GSE wJNEtL8InRA9gDZPukC VrQ68RZquuVNM7FUXFC apxPKTkXF4Cm3snMIQp eKIzSIW6LFmnfYNhSXE rYPWkSXy8RWWdSOxvrH TmRP2ypAsaGfbomKlmg 2VjdCBcXGlkIDUxMDAy EYvaNDRsMO4XQqAgAZE iTKP2MiGeXIa6JMl2MJ 9WUyAiICAgNTAxMTIxM iAgHBr6AHhoCZ9GSCx3 OhO5ScX4UzW2XPK6ZGC cXHQgMiBcXGYgQXJpYW wgXFxmcyAxMCBcXGZiI AhzYdkjVUwkG64gvGkr kS2oYijjmuBiDUI9UGO hciANClxwbGFpblxlcG ljTmVzdERvYzEgDQpcb HRycGFyXGxpbjBccmlu MCANClxsdHJjaFxiXGN mMVxmczIwIENlcnZpeC loUP5wSZJcO9Ewn0VhL fjbELkgCjTrMO4hDEP6 HO8vgKPdlS43PUMqUEd qAP26YM2eDAVjGmBzbI qgq8BbFL5jEXQ0daoyS tFrHnabC50yJKTegUsf DSt2KLP7Nc1ilKVfJBL fasOXJU0kXPlfjy06QW H5x5bueUPrXMikBkujt YYmvdX2PXxCXVKVBLcE OxRlIM5iIUqLQzkAUAl JTnwyMTAxNnwxfFVTRV Q4PEfmyUcxkRg4u7bjw HDqa1i5ORmcGRL0vIvS s9tpsBTdXQmpFpmrgCK cclB4HKiARTRBLBzFWq EuJF6oWAhDMloMUpF2O pGpWOY6YJqFS4REtJZ1 Qne0VGa4vUulYoaampP xiZGkOlBIaL1ylOjmvQ 0rtRYoF5qtUjLpMBZYB lxlcGljTmVzdERvYzBc huP4SBJliGYrITA6OG4 kXHBhclxwYXJkXHNsLT Y9JZftoO53tKNuDOKmN TZccGFyfVxwbGFpbiAN MplwgV4qZlUek1mnzAb 0MCANClxwbGFpblxmcz O9NWUnj3kevUgjs2Nbz RMbXR6drEwrxT8nBjYw NiANCn0= Biomarker Block(s) (test l4ujpFOpEGBhnTN8GwK code = 9841) fAPSab8sva3TioVOynS KfUTplpAUouzXwoo26n UB3zA81VT0tWWIuTqR6 XLOjxaR8Une3LOZzCAV vxFRlK084x6fjs5kjnz MypSX0wJwkXXShswigU wU7DDlbFMExwtfdNRe6 GJsdAMUstAN2ZRHmnWA bU7QoAGUkVJ5qzda4GS D8FWkkIPJgBlM2STPyo AGzHXBeaStcDDdnu797 BPN4UkPcSCWithUrlUn bkK8uNpRbDNTRNwHHZM ftDWTxXbgwYr9CUMVdl n0= Disclaimer (test code = o7yjoXQpRDMxrSXxIjN 9844) qITBcOHFps4bsFBBueK FuZzEwMzNcZnRuYmpcd PEuVUXtMaKma1cbu701 oNCyw9okDLTnPiO0cZK lUSIvcORsP177REFaQI opk5ohm8WaMSBrxRUec 4G4APOHoimuzJh9kKcg X13fm6Q4GfcnM2zmSCZ wIGDtR1ByOY6cAMGaOc r5ECZ8LJR2RUXzGIBhI 9SmOQ3hMNAanDFtZFr9 w2zbpVsfYKJoGZP8g6v kQGgouyCiWB6zcq5tyD o6q4rdcsFjIJUbSBYza UQEJGPlZ3FthXhdTa2c dZn2yLyyMxciQKE8Jcw 9OJ2mbg60viz2xYfgWQ MgrxfbOgS8FKyyKTNje schJZy5QUrpDZMurIN4 LFVtrDCrP9MnXEYiZF0 nvfc8MYH4YTcaBDBfMc W9HNJdrMWqWNNkfMvsX Qxny767WTL2BlXiMH9y U5Wiq0Z7oN7ylNUpUTO ykKOnQxWxKPMtld9anU FqLVahh2EtRIM5wvS1s RDfzXXeOMYcIM15Olcu l6AzAljrZWE4LBHmlkS jm3Fmm9jhAdBxrlVjG4 jjM4WgTCHvHDRrCRVkK aWsayRhz7Mrl5JtlINi kUi3g6weCURqLIWrvGy tf9mmESS9YJWbJ0V8lN Zus9waEWmhBILumQE5g tF1DVCraSDpL9SjfB6e CWCsJI5rhqu0e1blNGR 8UHmvTSIpGbY7rhT8HW BcaGVhZGVyeTcyMFxmb 000IGP1WvIkIBGxs0Qd H0YbhCfhE88zfIhnR65 qWCSxjTybzF2bkWryiB 5cZjBcZnMyNFxxbFxwb QYqyvnvOTodykE5OVql uclcNHSvXMrvN7suKnE jKOBxrByoMNlfl5FvEE JgANBkPypjkfM8OHLZt 24dURLwd0TuZFXaxD2e yXWyBSxjscVuvVK8HYo hdmUgYmVlbiBkZXZlbG 7eKVIaKY5tVETazoCrh z8zoqNgJDVcBTIaY7Fu cmlzdGljcyBkZXRlcm1 tzaGfFUH4WVJYLD0CCA MlQRIkb37hXWIjhEmeb M0twCMpsoUyTYVge2Az uM0ohMTHQIVhF6whAP5 wDPsde4LvtZRviVLcsV V1JYQwf2MvGgIujbJfo XKslRPaL8KkcXhwT3zo KYNiGHBnahKzbHKhs9U uQQYjhMQ8xBOmPX0DIa BMz80mHGHqIDAHajWaQ SWaaPflfQG9rhV5pR0p LiBJZiBhcHBsaWNhYmx jJJYxf925fg9bhhY1CL TpQMFufxlzj2DwGLPwV PMbbR99TZYrMNNwuq3x kbagkFDlpoFfB1Ielgw 9nB8cFPVpGYunYVRtAA ZzMjJcbGFuZzEwMzNca GljaFxmMVxkYmNoXGYx IGlvV2ryQmRrLlMgNjt wYXJ9 AndersonBLOOD [id number] 09:55:00 Test Item Value Reference Range Interpretation Comments CULTURE (BEAKER) (test No growth in 5 days code = 1095) BLOOD [id number] 20:01:00 Test Item Value Reference Range Interpretation Comments CULTURE (BEAKER) (test No growth in 5 days code = 1095) EAR CULTURE + GRAM [id number] 10:54:00 Test Item Value Reference Range Interpretation [...] gram variable (BEAKER) (test code = rods [id number]) GRAM STAIN RESULT <1+ gram (BEAKER) (test code = positive cocci 557327) in pairs BASIC METABOLIC [id number] 06:46:00 Test Item Value Reference Range Interpretation [...] PATIEN TS. CBC W/PLT COUNT & AUTO [id number] 06:02:00 Test Item Value Reference Range Interpretation [...] code = 2801) URINALYSIS W/ REFLEX URINE [id number] 14:41:00 Test Item Value Reference Range Interpretation [...] SOURCE(BEAKER) (test code = 2795) BASIC METABOLIC [id number] 05:45:00 Test Item Value Reference Range Interpretation [...] PATIEN TS. CBC W/PLT COUNT & AUTO [id number] 05:11:00 Test Item Value Reference Range Interpretation [...] PERCENT (BEAKER) (test code = 2801) HEMOGLOBIN [id number] 13:15:00 Test Item Value Reference Range Interpretation Comments HEMOGLOBIN A1C (BEAKER) (test code = 5.6 % 4.3-6.1 368) BASIC METABOLIC [id number] 05:44:00 Test Item Value Reference Range Interpretation Comments SODIUM (BEAKER) 137 meq/L 136-145 (test code = 381) POTASSIUM (BEAKER) 4.0 meq/L 3.5-5.1 (test code = 379) CHLORIDE (BEAKER) 105 meq/L 98-107 (test code = 382) CO2 (BEAKER) (test 25 meq/L -29 code = 355) BLOOD UREA NITROGEN 11 [...] S NOT APPLICABLE FOR DIALYSIS PATIEN TS. [id number] 05:16:00 Test Item Value Reference Range Interpretation [...] mechanical heart valves.CBC W/PLT COUNT & AUTO [id number] 05:13:00 Test Item Value Reference Range Interpretation [...] PERCENT (BEAKER) (test code = 2801) SCREEN, [id number] 20:10:00 Test Item Value Reference Range Interpretation Comments TEST URINE (BEAKER) (test Negative code = 583) BASIC METABOLIC [id number] 18:39:00 Test Item Value Reference Range Interpretation [...] 697) EGFR (BEAKER) (test 92 mL/min/1.73 ESTIMA JEREMÍAS GFR IS code = 1092) sq m NOT ACCURATE CREATININE CLEARANCE IN PREDICTING GLOMERULAR FILTRATION RATE . ESTIMATED GFR I S NOT APPLICABLE FOR DIALYSIS PATIEN TS.
[2021-11-11] MEDS ORDERED: MORPHINE 4 MG/ML SYR ONE ×2 (21:05→23:25)
[2021-11-11] MEDS ORDERED: ONDANSETRON 4 MG/2 ML VIAL ONE (21:05)
[2021-11-11 21:18] LABS: Absolute Lymphocytes (CBC) 2.1 K/uL (0.7-4.9); Hematocrit 29.9 % (36.0-45.0); Lymphocytes % 23.7 % (15.3-44.8); MPV 7.7 fL (7.6-11.3)
[2021-11-11 21:29] LABS: ALT/SGPT 128 U/L (12-78); AST/SGOT 44 U/L (15-37); Albumin 3.3 g/dL (3.4-5.0); Alkaline Phosphatase 135 U/L (45-117); BUN Blood Urea Nitrogen 19 mg/dL (7-18); Bicarbonate 28 mmol/L (21-32); Bilirubin Direct 0.2 mg/dL (0-0.2); Bilirubin Total 0.5 mg/dL (0.2-1.0); Glucose Level 109 mg/dL (74-106); Lipase 161 U/L (73-393); Potassium 3.6 mmol/L (3.5-5.1); Protein, Total 7.1 g/dL (6.4-8.2); Sodium Level 138 mmol/L (136-145)
[2021-11-11 22:10] LABS: Urine Blood 3+ (Negative); Urine Glucose Negative (Negative); Urine Protein 2+ (Negative); Urine Specific Gravity >=1.030 (1.005-1.030)
[2021-11-11] MEDS ORDERED: CEFTRIAXONE 1000 MG/VIAL ONE (22:19)
[2021-11-11 22:22] LABS: Urine Bacteria >50 /HPF (<20); Urine Mucus HEAVY /HPF (NONE SEEN); Urine RBC 20-50 /HPF (NONE SEEN)
[2021-11-11] MEDS ORDERED: NA CHLORIDE 0.9% 500 ML ONE (23:25)
--- NOTE | 2021-11-11 23:41 | ER ---
Nurse's Notes [facility] Name: Zehra Carrillo Age: 36 yrs Sex: Female : 1985 Arrival Date: 11/11/2021 Time: 19:57 Bed 27 Private MD: Diagnosis: UTI/ Urinary tract infection, site not specified Presentation: 11/11 20:03 Chief complaint: Patient states: recent diagnosis of cancer with a radical hysterectomy sf1 done on 11/06 and was discharged on the 11/09 with a catheter in place. Patient reports discomfort in the abdomen with decreased output and blood in the urine. Coronavirus screen: Vaccine status: Patient reports receiving the 2nd dose of the covid vaccine. Ebola Screen: Patient negative for fever greater than or equal to 101.5 degrees Fahrenheit, and additional compatible Ebola Virus Disease symptoms Patient denies exposure to infectious person. Patient denies travel to an Ebola-affected area in the 21 days before illness onset. Initial Sepsis Screen: Does the patient meet any 2 criteria? No. Patient's initial sepsis screen is negative. Does the patient have a suspected source of infection? No. Patient's initial sepsis screen is negative. Risk Assessment: Do you want to hurt yourself or someone else? Patient reports no desire to harm self or others. Onset of symptoms was November 10, 2021. 20:03 Method Of Arrival: Ambulatory sf1 20:03 Acuity: FRANCISCO 3 sf1 Triage Assessment: 20:05 General: Appears in no apparent distress. Behavior is calm, cooperative, appropriate sf1 for age. Pain: Complains of pain in suprapubic area Pain currently is 8 out of 10 on a pain scale. Historical: - Allergies: 20:05 No Known Allergies; sf1 - Home Meds: 20:05 ibuprofen 800 mg oral tab 3 times per day [Active]; Senokot S Oral 8.6 mg twice a day sf1 [Active]; acetaminophen 500 mg Oral tab 2 tabs every 6 hours [Active]; Eliquis 2.5 mg oral tab 1 tab 2 times per day [Active]; methocarbamol 500 mg oral tab three times a day [Active]; oxycodone 5 mg oral TbOr 1 tab every 4 hours [Active]; - PMHx: 20:05 ADD/ADHD; constipation; Pancreatitis; cervical cancer; sf1 - PSHx: 20:05 Cholecystectomy; radical hysterectomy; sf1 - Immunization history:: Flu vaccine is not up to date. - Social history:: Smoking status: Patient denies any tobacco usage or history of. Patient/guardian denies using alcohol, street drugs. Screenin:33 Abuse screen: Denies threats or abuse. Nutritional screening: No deficits noted. ss7 Tuberculosis screening: No symptoms or risk factors identified. Fall Risk IV access (20 points). Assessment: 21:33 General: Appears in no apparent distress. comfortable, Behavior is calm, cooperative, ss7 appropriate for age. Neuro: No deficits noted. Cardiovascular: Heart tones S1 S2. Respiratory: No deficits noted. Breath sounds are clear bilaterally. GI: Abdomen is flat. : Ruby in place to gravity drainage Urine is blood tinged. EENT: No deficits noted. Derm: No deficits noted. Musculoskeletal: No deficits noted. Vital Signs: 20:03 BP 110 / 84; Pulse 84; Resp 20; Temp 98.3; Pulse Ox 100% ; Weight 72.57 kg; Height 5 sf1 ft. 6 in. (167.64 cm); Pain 8/10; 21:42 BP 114 / 81; Pulse 88; Resp 18; Pulse Ox 100% ; ss7 23:00 BP 104 / 74; Pulse 85; Resp 18; Pulse Ox 100% on R/A; ss7 20:03 Body Mass Index 25.82 (72.57 kg, 167.64 cm) sf1 ED Course: 19:57 Patient arrived in ED. kc5 20:05 Triage completed. sf1 20:11 Francesca Galvan RN is Primary Nurse. ss7 20:21 Juan M Rodriguez NP is PHCP. pm1 20:21 Brayan Platt MD is Attending Physician. pm1 20:57 Basic Metabolic Panel Sent. ss7 20:57 CBC with Diff Sent. ss7 20:57 Hepatic Function Sent. ss7 20:57 Lipase Sent. ss7 21:33 Inserted saline lock: 20 gauge in right antecubital area, using aseptic technique. ss7 21:33 Patient has correct armband on for positive identification. Bed in low position. Call ss7 light in reach. Side rails up X2. 22:11 Urine Microscopic Only Sent. lr4 23:39 No provider procedures requiring assistance completed. ss7 23:40 Arm band placed on. 7 11/12 00:01 Report given to Kiley. ss7 00:34 IV discontinued, intact, bleeding controlled, No redness/swelling at site. Pressure sf1 dressing applied. Administered Medications: 11/11 21:10 Drug: morphine 4 mg Route: IVP; Site: right antecubital; ss7 23:46 Follow up: Response: Pain is decreased ss7 21:10 Drug: Zofran (Ondansetron) 4 mg Route: IVP; Site: right antecubital; ss7 23:46 Follow up: Response: Pain is decreased ss7 22:31 Drug: Rocephin (cefTRIAXone) 1 grams Route: IV; Rate: calculated rate; Site: right ss7 antecubital; 23:38 Drug: NS 0.9% 500 ml Route: IV; Rate: bolus; Site: right antecubital; ss7 23:38 Drug: morphine 4 mg Route: IVP; Site: right antecubital; 7 23:45 Follow up: Response: No adverse reaction; Pain is decreased 7 Outcome: 23:40 Discharged to home ambulatory. ss7 23:40 Condition: good 23:40 Discharge instructions given to patient, family. 23:40 Discharge ordered by MD. pm1 11/12 00:35 Patient left the ED. sf1 Addendum: 11/14/2021 07:51 Addendum: Culture Results: Positive urine culture. No further action required. Bacteria s s sensitive to prescribed antibiotic. Signatures: Daphne Hernandez RN RN ss Juan M Rodriguez NP PROFESSIONAL ADVISOR pm1 Liza Weir kc5 Kiley Silver RN RN sf1 Francesca Galvan RN RN ss7 Radha Gee RN RN lr4
--- NOTE | 2021-11-11 23:41 | EDPHYS ---
Physician Documentation [facility] Name: Zehra Carrillo Age: 36 yrs Sex: Female : 1985 Arrival Date: 11/11/2021 Time: 19:57 Bed 27 Private MD: ED Physician Brayan Platt HPI: 11/11 20:46 This 36 yrs old Female presents to ER via Ambulatory with complaints of Blood pm1 In Catheter. 20:46 The patient presents with urinary symptoms, hematuria. Onset: The symptoms/episode pm1 began/occurred yesterday. Modifying factors: The symptoms are alleviated by nothing. Associated signs and symptoms: Pertinent positives: left flank pain, Pertinent negatives: fever. The patient has not experienced similar symptoms in the past. The patient has been recently seen by a physician: Dr. Margot Benitez Patient with Radical hysterectomy - removal of uterus, cervix, fallopian tubes due to cervical cancer. Bilateral ovaries spared. Patient discharged home with Ruby catheter. Patient reports no blood present in Ruby bag after discharge but she noticed darkening of her urine and possibly blood starting yesterday. Historical: - Allergies: 20:05 No Known Allergies; sf1 - Home Meds: 20:05 ibuprofen 800 mg oral tab 3 times per day [Active]; Senokot S Oral 8.6 mg twice a day sf1 [Active]; acetaminophen 500 mg Oral tab 2 tabs every 6 hours [Active]; Eliquis 2.5 mg oral tab 1 tab 2 times per day [Active]; methocarbamol 500 mg oral tab three times a day [Active]; oxycodone 5 mg oral TbOr 1 tab every 4 hours [Active]; - PMHx: 20:05 ADD/ADHD; constipation; Pancreatitis; cervical cancer; sf1 - PSHx: 20:05 Cholecystectomy; radical hysterectomy; sf1 - Immunization history:: Flu vaccine is not up to date. - Social history:: Smoking status: Patient denies any tobacco usage or history of. Patient/guardian denies using alcohol, street drugs. ROS: 20:46 Positive for flank pain, hematuria. pm1 20:46 Constitutional: Negative for fever, chills, and weight loss, Cardiovascular: Negative for chest pain, palpitations, and edema, Respiratory: Negative for shortness of breath, cough, wheezing, and pleuritic chest pain, Abdomen/GI: Negative for abdominal pain, nausea, vomiting, diarrhea, and constipation. 20:46 MS/Extremity: Negative for injury and deformity, Skin: Negative for injury, rash, and discoloration, Neuro: Negative for headache, weakness, numbness, tingling, and seizure. 20:46 : Positive for flank pain, hematuria. 20:46 All other systems are negative. Exam: 20:46 Constitutional: This is a well developed, well nourished patient who is awake, alert, pm1 and in no acute distress. Head/Face: Normocephalic, atraumatic. 20:46 Back: No spinal tenderness. No costovertebral tenderness. Full range of motion. Skin: Warm, dry with normal turgor. Normal color with no rashes, no lesions, and no evidence of cellulitis. MS/ Extremity: Pulses equal, no cyanosis. Neurovascular intact. Full, normal range of motion. 20:46 Cardiovascular: Exam negative for acute changes, Rate: normal, Rhythm: regular, Pulses: no pulse deficits are appreciated. 20:46 Respiratory: Exam negative for acute changes, respiratory distress, shortness of breath. 20:46 Abdomen/GI: Inspection: suprapubic surgical wound without any signs of infection, no dehiscence, redness, discharge, odor, Palpation: abdomen is soft and non-tender, in all quadrants. 20:46 Neuro: Exam negative for acute changes, Orientation: is normal, Mentation: is normal, Motor: is normal, moves all fours. Vital Signs: 20:03 BP 110 / 84; Pulse 84; Resp 20; Temp 98.3; Pulse Ox 100% ; Weight 72.57 kg; Height 5 sf1 ft. 6 in. (167.64 cm); Pain 8/10; 21:42 BP 114 / 81; Pulse 88; Resp 18; Pulse Ox 100% ; ss7 23:00 BP 104 / 74; Pulse 85; Resp 18; Pulse Ox 100% on R/A; ss7 20:03 Body Mass Index 25.82 (72.57 kg, 167.64 cm) sf1 MDM: 20:36 Patient medically screened. pm1 21:32 Data reviewed: vital signs. Data interpreted: Pulse oximetry: on room air is 100 %. pm1 Interpretation: normal. 21:40 Physician consultation: MD Marcelo discussed with her Fellow regarding the surgery and pm1 there was no injury to the bladder. Since patient has appointment in the office in two days, will replace the Ruby and get urine sample for micro and culture. Will leave the Ruby in place for the patient's appointment for self void testing. She also discussed the ER plan of care with her Fellow and the Fellow does not feel that the CT Abdomen pelvis is necessary. Patient clinically presenting with cystitis/pyelonephritis therefore I agree that CT abdomen/pelvis does not need to performed at this ER visit. 23:38 Counseling: I had a detailed discussion with the patient and/or guardian regarding: the pm1 historical points, exam findings, and any diagnostic results supporting the discharge/admit diagnosis, lab results, the need for outpatient follow up, to return to the emergency department if symptoms worsen or persist or if there are any questions or concerns that arise at home. 11/11 20:43 Order name: Basic Metabolic Panel pm1 11/11 20:43 Order name: CBC with Diff; Complete Time: 21:31 pm1 11/11 20:43 Order name: Hepatic Function; Complete Time: 21:31 pm11/11 20:43 Order name: Lipase; Complete Time: 21:31 pm11/11 20:43 Order name: Urine Microscopic Only; Complete Time: 22:32 pm11/11 20:43 Order name: Basic Metabolic Panel; Complete Time: 21:31 EDWV 11/11 22:10 Order name: Urine Dipstick-Ancillary; Complete Time: 22:12 EDWV 11/11 22:24 Order name: Urine Culture [facility] 11/11 20:43 Order name: IV Saline Lock; Complete Time: 20:57 pm11/11 20:43 Order name: Labs collected and sent; Complete Time: 20:57 pm11/11 20:43 Order name: Urine Dipstick-Ancillary (obtain specimen); Complete Time: 22:11 pm11/11 21:31 Order name: Ruby; Complete Time: 22:02 pm11/11 23:11 Order name: Leg Bag; Complete Time: 23:38 pm1 Administered Medications: 21:10 Drug: morphine 4 mg Route: IVP; Site: right antecubital; ss7 23:46 Follow up: Response: Pain is decreased ss7 21:10 Drug: Zofran (Ondansetron) 4 mg Route: IVP; Site: right antecubital; ss7 23:46 Follow up: Response: Pain is decreased ss7 22:31 Drug: Rocephin (cefTRIAXone) 1 grams Route: IV; Rate: calculated rate; Site: right ss7 antecubital; 23:38 Drug: NS 0.9% 500 ml Route: IV; Rate: bolus; Site: right antecubital; ss7 23:38 Drug: morphine 4 mg Route: IVP; Site: right antecubital; ss7 23:45 Follow up: Response: No adverse reaction; Pain is decreased ss7 Disposition: 11/12 01:45 Co-signature as Attending Physician, Brayan Platt MD. [facility] Disposition Summary: 11/11/21 23:40 Discharge Ordered Location: Home pm1 Problem: new pm1 Symptoms: have improved pm1 Condition: Stable pm1 Diagnosis - UTI/ Urinary tract infection, site not specified pm1 Followup: pm1 - With: Emergency Department - When: As needed - Reason: Worsening of condition Followup: pm1 - With: Private Physician - When: 2 - 3 days - Reason: Recheck today's complaints, Continuance of care, Re-evaluation by your physician Discharge Instructions: - Discharge Summary Sheet pm1 - Urinary Tract Infection, Adult pm1 Forms: - Medication Reconciliation Form pm1 - Thank You Letter pm1 - Antibiotic Education pm1 - Prescription Opioid Use pm1 Prescriptions: - Bactrim DS 800-160 mg Oral Tablet - take 1 tablet by ORAL route every 12 hours for 10 days; 20 tablet; Refills: 0, pm1 Product Selection Permitted Signatures: Dispatcher [employer] EDMS Juan M Rodriguez, CERTIFIED PERSONAL TRAINER CERTIFIED PERSONAL TRAINER pm1 Brayan Platt MD MD 7 Kiley Silver RN RN sf1 Francesca Galvan RN RN ss7 Corrections: (The following items were deleted from the chart) 11/11 22:03 20:50 Abdomen Pelvis W [id number] ordered. EDMS EDMS
[2021-11-12 00:40] VITALS: TEMP 98.3; O2SAT 100
[2021-11-12 00:43] VITALS: BP 104/74
== END 2021-11-12 00:35 | disposition home or self-care (01) ==
LOC: ER 19:54
DX: N39.0 Urinary tract infection, site not specified (principal); Z85.41 Personal history of malignant neoplasm of cervix uteri; Z90.710 Acquired absence of both cervix and uterus
CPT/HCPCS: 87088; 85025; 87086; 80048; 36415; 80076; 87077; 87186; 83690; 96375; 96374; 99283; J7040; J2405; 81003; 81015

== ENCOUNTER 2023-07-24 15:34 | Emergency (ER) | payer OTHER ==
--- OUTSIDE RECORDS SUMMARY | 2023-07-24 15:38 | XMS REPORT | Clinical Summary ---
:1985 Author Organization [facility] MD [facility] Address [address] [place] [address] Care Team Providers Name Role Phone Margot Benitez MD Primary Care Provider Patricio Hagen MD Unavailable Ashlee Kuo RD Unavailable Unavailable Maureen Zamarripa MD Unavailable [phone] Clare Carranza MD Unavailable Niecy Deleon APRN Unavailable Allergies Active Allergy Reactions Criticality Noted Date Comments Ciprofloxacin GI Intolerance 02/07/2023 GI pain Medications Medication Sig Dispensed Refills Start End Date Status Date dextroamphetamine-a Take 1 tablet 0 Active mphetamine (30 mg) by 2 (ADDERALL) 30 mg mouth 2 (two) tablet times a day as needed. escitalopram Take 1 tablet 90 tablet 0 Act lilliana (Lexapro) 5 mg (5 mg) by 2 tabletIndications: mouth every Adjustment disorder morning. with mixed anxiety and depressed mood PreviDent 5000 APPLY A PEA 0 Act lilliana Sensitive 1.1-5 % SIZE AMOUNT TO 2 pste dental paste BRUSH AND BRUSH FOR 2 MINUTES TWICE DAILY RINSING WELL AFTER USE. Dodex 1,000 mcg/mL ADMINISTER 1 0 Active injection ML IN THE 2 MUSCLE MONTHLY vaginal lubricant Insert into 0 Active inst the vagina as needed. ALPRAZolam (XANAX) every 8 0 A ctive 1 mg tablet (eight) hours 3 as needed. ergocalciferol 0 Activ e (DRISDOL) 50,000 3 units capsule [place] Thyroid 60 Take 1 tablet 0 Active mg tablet (60 mg) by 3 mouth daily. levothyroxine Take 1 tablet 0 Ac tive (SYNTHROID, (75 mcg) by LEVOTHROID) 75 mcg mouth daily. tablet cranberry extract Take 1 capsule 30 capsule 2 Active (Ellura) 200 mg by mouth daily 3 capIndications: for 90 doses. Acute cystitis with hematuria diclofenac sodium TAKE 1 TABLET 0 09/18/19 Discontinued (VOLTAREN) 75 mg EC BY MOUTH TWICE 11 07 (Therapy tablet DAILY completed) chlorhexidine 0 09/18/19 Discon tinued (PERIDEX) 0.12% 2 (Not Applicable) solution fluconazole Take 1 tablet 1 tablet 0 09/22/19 Expi red (Diflucan) 200 mg (200 mg) by 3 23 tabletIndications: mouth once for Candidiasis of 1 dose. vagina <Acute> escitalopram Take 1 tablet 30 tablet 1 12/07/19 Dis continued (Lexapro) 5 mg (5 mg) by 12 05 tabletIndications: mouth every Adjustment disorder morning. with mixed anxiety and depressed mood, Positive cervical high risk HPV DNA test phenazopyridine HCl Take by mouth. 0 04/25 Discontinued (AZO ORAL) 2 tablets in 23 (Not A pplicable) the AM and 2 tablets in the PM nystatin Apply 30 g 0 01/04/20 (MYCOSTATIN) topically to 3 100,000 units/g affected powderIndications: area(s) twice Candidiasis of skin daily for 7 days. sulfamethoxazole-tr Take 1 tablet 14 tablet 0 imethoprim (BACTRIM by mouth twice 3 DS) 800 mg-160 mg daily for 7 per days. tabletIndications: Dysuria magnesium hydroxide Chew 1 tablet 0 Discontinued (GARCIA CHEWS) (311 mg) every 23 (Therapy 311 MG chew 4 (four) hours com pleted) as needed. 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 Cancer Staging: Clinical stage from 2021: Stage IB2 (Primary) - Signed by Margot Benitez MD on 10/19/2021 Positive cervical high risk HPV DNA test 10/18/2021 Adjustment disorder with mixed anxiety and depressed mood Hypothyroidism 09/15/2016 Encounters Date Type Department Care Team Description 05/09/2023 Consult Genitourinary Cancer Maureen Zamarripa neoplasm of endocervix; 12:00 PM CDT Center MD Joshua Acute cystitis with hematuri a [address] [facility], [address]th [place] [address] 05/09/2023 Travel 05/08/2023 Telemedicine Adolescent and Young Enoch Deleon cervical high risk HPV DNA test (Primary Dx); 9:00 AM CDT Adult Center Niecy Blake APRN Anxiety, not otherwise speci fied; [address] [facility] Sexual dysfunction Main dg, 7th [place] [address] 05/08/2023 Documentation [facility] Zenaida [address], 7th [place] [address] 05/08/2023 Documentation Child and Adolescent Klaus Grimaldo [facility] Neuropsychology [address], 7th [place] [address] 05/08/2023 Documentation Child and Adolescent Klaus Grimaldo [facility] Neuropsychology [address] Main Bldg, 7th [place] [address] 05/08/2023 Documentation Child and Adolescent Klaus Grimaldo [facility] Neuro[facility]ology [address], 7th [place] [address] 04/25/2023 Follow-Up MD Sapp in [facility] Margot Benitez gnant neoplasm 9:00 AM CDT [facility] - Gynecology MD Los of endocervix [address] [facility] (Primary Dx ) [place] [address] 04/25/2023 Travel 04/21/2023 Travel 04/18/2023 Ancillary Procedure Diagnostic Imaging Eva Mejia PA Malignant neoplasm 8:15 AM CDT in [facility] of endocervix [address] [facility] [place] [address] 02/06/2023 Orders Only MD Sapp in [facility] Dixie Fernando, Dysur ia (Primary [facility] - Gynecology PA Dx) [address] [place] [address] 01/06/2023 Travel 12/27/2022 Follow-Up MD Sapp in [facility] Eva Mejia, SANJAY Cand idiasis of skin (Primary Dx); 1:00 PM CDT Land - Gynecology Malignant neoplasm of endoce rvix [address] [place] [address] 12/27/2022 Travel 12/26/2022 Orders Only MD Sapp in [facility] Dixie Fernando, Malig nant neoplasm [facility] - Gynecology PA of endocervix [address] [facility] (Primary Dx ) [place] [address] 12/26/2022 Orders Only MD Sapp in [facility] Lisa Lelo [facility] - Gynecology Radha RN [address] [place] [address] 12/23/2022 Orders Only MD Sapp in [facility] Dixie Fernando, Acute cystitis with hematuria (Primary Dx); [facility] - Gynecology PA Malignant neoplasm of endoce rvix [address] [place] [address] 12/19/2022 Infusion MD Sapp in [facility] Eva Mejia PA Malignant neoplasm of endocervix; 3:45 PM CDT [facility] - Infusion Niesha Maldonado Acute cystitis with hematuri a [address] [facility] RICARDO [address] [place] [address] 12/19/2022 Travel 12/19/2022 Orders Only MD Sapp in [facility] Lelo Gonzalez Land - Gynecology J, RN [address] [place] [address] 12/18/2022 Follow-Up MD Sapp in [facility] Margot Benitez gnant neoplasm of endocervix (Primary Dx); 11:00 AM CDT Land - Gynecology MD Los Acute cystitis with hematuri a [address] [place] [address] 12/18/2022 Travel 12/16/2022 Hospital Encounter Diagnostic Margot Benitez a 10:00 AM CDT Laboratory Center MD Los Discharge Disposition: Home - 12/16/[address] 11:59 [place] [address] 12/16/2022 Travel 12/13/2022 Orders Only MD Sapp in [facility] Kassie, Dixie, Dysur ia (Primary [facility] - Gynecology PA Dx) [address] [place] [address] 12/06/2022 Travel 11/22/2022 Travel 11/15/2022 Travel 11/08/2022 Telemedicine Adolescent and Young Farhad Deleon m, malignant of exocervix (Primary Dx); 9:00 AM MANAGER CAFE Adult Center Niecy Blake APRN Positive cervical high risk HPV DNA test; [address] Anxiety, not otherwise speci fied; Main Bldg, 7th Floor [place] [address] 10/15/2022 Orders Only MD Sapp in [facility] Eva Mejia PA Acut e cystitis [facility] - Gynecology with hematuria [address] [place] [address] (Primary Dx ) [place] [address] 09/22/2022 Telephone MD Sapp in [facility] Eva Mejia PA [facility] - Gynecology [address] [place] [address] 09/22/2022 Orders Only MD Sapp in [facility] Eva Mejia PA Cand idiasis of Land - Gynecology vagina <Acute> [address] [place] [address] (Primary Dx ) [place] [address] 09/20/2022 Infusion MD Sapp in [facility] Eva Mejia PA Acute cystitis 3:45 PM MANAGER CAFE [facility] - Infusion Catherine Camarillo with hematuria [address] [place] [address] 09/20/2022 Travel 09/20/2022 Orders Only MD Sapp in [facility] Eva Mejia PA Land - Gynecology [address] [place] [address] 09/19/2022 Orders Only MD Sapp in [facility] Eva Mejia PA Acut e cystitis [facility] - Gynecology with hematuria [address] [facility] (Primary Dx ) [place] [address] 09/18/2022 Follow-Up MD Sapp in [facility] Margot Benitez gnant neoplasm of endocervix (Primary Dx); 10:30 AM MANAGER CAFE [facility] Carmelina Madison MD Abdominal pain, not otherwise specified; [address] [place] [address] 09/18/2022 Travel after 07/24/2022 Immunizations Name Administration Dates Next Due Moderna SARS-CoV-2 Monovalent Booster Vaccination (50 2021 mcg/0.25 mL) Moderna SARS-CoV-2 Vaccination 12/20/2020, 11/22/2020 Surgical History Surgery Date Site/Laterality Comments COLONOSCOPY 09/15/2006 - 09/14/2007 HERNIA REPAIR 07/16/2019 - 08/14/2019 STOMACH SURGERY 07/16/2019 - 08/14/2019 CHOLECYSTECTOMY 09/15/2019 - 09/14/2020 UPPER GASTROINTESTINAL 07/16/2019 - ENDOSCOPY 08/14/2019 RI RAD ABDL HYSTERECTOMY 11/06/2021 Abdomen/Bilateral Proce dure: RADICAL W/BI PELVIC LMPHADENECTOMY ABDOM INAL HYSTERECTOMY, WITH PELVIC LYMPHADENECTOMY W/ REMOVAL OF TUBE( S); Surgeon: Margot Benitez MD; Loc ation: MAIN OR; Service : MINE ENGINEERING MANAGER - GYNECOLOGIC ONCO LOGY Medical devices from this surgery are in t he Medical Devices section. RI INTRAOP SENTINEL LYMPH 11/06/2021 Bilateral Proced ure: INTRAOPERATIVE NODE ID W/DYE INJECTION LYMPHATI C MAPPING; Surgeon: Margot Benitez MD; Loc ation: MAIN OR; Service : MINE ENGINEERING MANAGER - GYNECOLOGIC ONCO LOGY Medical devices from this surgery are in t he Medical Devices section. HEMORRHOID SURGERY 04/17/2023 Medical History Medical History Date Comments Migraine 1999 Pancreatitis 2019 Depressive disorder 2019 Anxiety 2016 Obsessive-compulsive disorder 1999 Attention-deficit hyperactivity disorder Family History Medical History Relation Name Comments Depression Brother Drug abuse Brother Diabetes type II Father Breast cancer Maternal Grandmother Gris Sapp Past due to this Cervical cancer Mother Gris Carrillo Depression Mother Gris Carrillo Leukemia Paternal Aunt Katherine Wolfe Relation Name Status Comments Brother Alive Father Alive Maternal Grandmother Gris Sapp Mother Gris Carrillo Alive Paternal Aunt Katherine Wolfe Sister (Age 19) Son 1 Alive Son 2 Alive Son 3 Alive Social History Tobacco Use Types Packs/Day Years Used Date Smoking Tobacco: Never Smokeless Tobacco: Never Tobacco Cessation: Counseling Given: Yes Alcohol Use Standard Drinks/Week Comments Not Currently 0 (1 standard drink = 0.6 oz pure alcoho l) Socially-maybe 1x a month Education Answer Date Recorded What is the highest level of school Associate degree: [employer] program 11/22/2022 you have completed or the highest degree you have received? Sex and Gender Information Value Date Recorded Sex Assigned at Female 10/16/2021 7:18 PM MANAGER CAFE Gender Identity Female 10/16/2021 7:[address] Sexual Orientation Straight 10/16/2021 7:[address] Job Start Date Occupation Industry Not on file Not on file Not on file Obstetrics History Para Term AB IAB SAB Ectopic Multiple Living Live Births 5 3 3 2 3 3 Date Outcome GA Total Labor/2nd/3rd Weight Sex Delivery Anes PTL Mayte A 1 A5 Name Clin Labor Term Term Term AB AB Last Filed Vital Signs Vital Sign Reading Time Taken Comments Blood Pressure 113/76 05/09/2023 11:26 AM CDT Pulse 92 05/09/2023 11:26 AM CDT Temperature 36.9 C (98.4 F) 05/09/2023 11:26 AM CDT Respiratory Rate 15 05/09/2023 11:26 AM CDT Oxygen Saturation 100% 05/09/2023 11:26 AM CDT Inhaled Oxygen Concentration - - Weight 83.4 kg (183 lb 13.8 oz) 05/09/2023 11:18 AM CDT Height 165.5 cm (5' 5.16") 05/09/2023 11:18 AM CDT Body Mass Index 30.45 05/09/2023 11:18 AM CDT Plan of Treatment Date Type Department Care Team Description 08/15/2023 10:30 Telemedicine Genitourinary Cancer Maureen Zamarripa AM MANAGER CAFE [place] MD Joshua [address] [facility] [address] [facility], [address] [place] [address] [place] [address] [phone] 08/22/2023 11:30 Follow-Up MD Sapp in [place] Joy Benitez, AM MANAGER CAFE - Gynecology [address] [facility] [address] [place], [place] [address] [place] [phone] [place] [address] 09 (Wo rk) Health Maintenance Due Date Last Done Comments COVID-19 Vaccination (2022-05/16/2023 10/27/2021, , season) 11/22/2020 Medical Devices Implanted Type Area Production Or Plant Engineer Device Shelf Model / Identifier Expiration Date Ser ial / Lot Seprafilm - Sna Skin/Tiss GENZYME 04/03/2024 [id number] / Implanted: Qty: 1 on 11/06/2021 by Margot Benitez MD at [facility] BIOSURGERY NA / [id number] Mirena Description: Mirena Procedures Procedure Name Priority Date/Time Associated Comments Diagnosis XR CHEST 2 VW Routine 04/18/2023 8:30 AM Malignant neoplasm Re sults for this CDT of endocervix procedure are in the results section. URINALYSIS MICROSCOPIC Routine 02/07/2023 1:05 PM Results for this EXAM CDT procedure are i n the results section. URINALYSIS WITH Routine 02/07/2023 1:05 PM Dysuria Result s for this MICROSCOPIC IF CDT procedure are in INDICATED the results section. URINE CULTURE Routine 02/07/2023 1:05 PM Dysuria Results for this CDT procedure are i n the results section. URINALYSIS MICROSCOPIC Routine 12/16/2022 10:19 R esults for this EXAM AM CDT procedure are i n the results section. URINALYSIS WITH Routine 12/16/2022 10:19 Dysuria Results for this MICROSCOPIC IF AM CDT procedure are in INDICATED the results section. URINE CULTURE Routine 12/16/2022 10:19 Dysuria Results fo r this AM CDT procedure are i n the results section. CYTOLOGY HPV 16/18 Routine 09/18/2022 11:27 Malignant neoplasm Results for this GENOTYPING AND HIGH AM MANAGER CAFE of endocervix procedu re are in RISK POOL the results section. CYTOLOGY MINE ENGINEERING MANAGER Routine 09/18/2022 11:27 Malignant neoplasm Resul ts for this INTERPRETATION AM MANAGER CAFE of endocervix procedure ar e in the results section. URINALYSIS MICROSCOPIC Routine 09/18/2022 11:14 R esults for this EXAM AM MANAGER CAFE procedure are i n the results section. URINALYSIS WITH Routine 09/18/2022 11:14 Dysuria Results for this MICROSCOPIC IF AM MANAGER CAFE procedure are in INDICATED the results section. URINE CULTURE Routine 09/18/2022 11:14 Dysuria Results fo r this AM MANAGER CAFE procedure are i n the results section. after 07/24/2022 Results X-ray Chest 2 Views (04/18/2023 8:30 AM CDT) Anatomical Region Laterality Modality Chest Radio Fluoroscopy Specimen (Source) Anatomical Collection Method Collection Time Re ceived Time Location / / Volume Laterality 04/18/2023 9:09 AM CDT Impressions 04/18/2023 9:10 AM CDT No acute cardiopulmonary disease. ACTIONABLE ITEMS/RECOMMENDATIONS: None. Narrative 04/18/2023 9:10 AM CDT FULL RESULT: Examination: XR CHEST 2 VW on 04/18/2023 8 :30 AM. Clinical History: Malignant neoplasm of endocervix Indication: Other:, cervical cancer scre ening for lung disease Comparison: None Technique: Posteroanterior, lateral and dual-energy radiographs of the chest. Findings: Support Apparatus: None. Lungs/Pleura: No consolidation. No pleur al effusion. Mediastinum/Heart: The cardiac normal in size. No destructive osseous lesions. Procedure Note LawsAshlyn Fatima MD - 04/18/20 23 FULL RESULT: Examination: XR CHEST 2 VW on 04/18/2023 8 :30 AM. Clinical History: Malignant neoplasm of endocervix Indication: Other:, cervical cancer scre ening for lung disease Comparison: None Technique: Posteroanterior, lateral and dual-energy radiographs of the chest. Findings: Support Apparatus: None. Lungs/Pleura: No consolidation. No pleur al effusion. Mediastinum/Heart: The cardiac normal in size. No destructive osseous lesions. IMPRESSION: No acute cardiopulmonary disease. ACTIONABLE ITEMS/RECOMMENDATIONS: None. Eva GRACE IMHalle DIAGNOSTIC IMAGING ORDER NICOLAS (ABNORMAL) Urinalysis Microscopic Exam (02/07/2023 1:05 PM CDT)Only the most recent of3 resultswithin the time period is included. athologist Signature UA WBC 26-50 (A) 0 - 2 /HPF [place] Comment: Some reporting parameters within the Uri nalysis test have changed due to the implementation of new instrumentation in the [place], allowing greater sensitivity of measurement. Urinalysis results rep orted by the [facility] using existing instrumentation, as well as Urinalysis t esting performed manually or by backup methodology at the [facility] [place] will remain relatively unchanged. New reporting parameters and units will not be reported for all campuses. All components of UA Microscopic Exam performed at [facility], [address] [place] [address] UA RBC 11-25 (A) 0 - 2 /HPF [place] [facility] Comment: As part of the UA Microscopic E xam performed at [facility], [address] [place] [address] UA Mucous TRACE Not Seen-Trace /HPF [place] [facility] Comment: As part of the UA Microscopic E xam performed at [facility], [address] [place] [address] UA Bacteria 1+ (A) NOT SEEN /HPF [place] [facility] Comment: As part of the UA Microscopic E xam performed at [facility], [address] [place] [address] UA Squam Epi Few (A) None-Occasional /HPF [place] [facility] Comment: As part of the UA Microscopic E xam performed at [facility], [address] [place] [address] UA WBC Clump 1+ (A) NOT SEEN /HPF [place] Comment: As part of the UA Microscopic E xam performed at [facility], [address] [place] [address] UA Amorph Tracy OCC (A) NOT SEEN /HPF [place] Comment: As part of the UA Microscopic E xam performed at [facility], [address] [place] [address] Specimen Anatomical Collection Method Collection Time Receive d Time (Source) Location / / Volume Laterality Urine 02/07/2023 1:05 PM 3 1:05 CDT PM CDT Dixie GRACE LAB BLOOD ORDERABLES Performing Organization Address City/State/ZIP Code Phon e Number [address], [address] (ABNORMAL) Urinalysis w/Microscopic if Indicated (02/07/2023 1:05 PM CDT)Only the most recent of3 resultswithin the time period is included. athologist Signature UA Color Brown (A) Straw-Yello [place] w Comment: All components of UA Macroscopi c performed at [facility], [address] [place] [address] UA Appear Sl Cloudy (A) Clear [place] Comment: As part of the UA Macroscopic p erformed at [facility], [address] [place] [address] UA Glucose 250 (A) NEG mg/dL [place] Comment: As part of the UA Macroscopic p erformed at [facility], [address] [place] [address] UA Bili NEG NEG [place] Comment: As part of the UA Macroscopic p erformed at [facility], [address] [place] [address] UA Ketones NEG NEG mg/dL [place] Comment: As part of UA Macroscopic or as an individual orderable testing performed at [facility], [address] [place], [place] [address] UA Spec Grav 1.010 1.003 - 1.035 [place] Comment: As part of UA Macroscopic or as an individual orderable testing performed at [facility], [address] [place] [address] UA Blood Small (A) NEG [place] Comment: As part of the UA Macroscopic p erformed at [facility], [address] [place] [address] UA pH 5.5 5.0 - 9.0 [place] Comment: As part of UA Macroscopic or as an individual orderable testing performed at [facility], [address] [place] [address] UA Protein 30 (A) NEG mg/dL [place] Comment: As part of the UA Macroscopic p erformed at [facility], [address] [place] [address] UA Urobilinogen POS (A) NEG [place] Comment: As part of the UA Macroscopic p erformed at [facility], [address] [place] [address] UA Nitrite POS (A) NEG [place] Comment: As part of the UA Macroscopic p erformed at [facility], [address] [place] [address] UA Leuk Est Moderate (A) NEG [place] Comment: As part of the UA Macroscopic p erformed at [facility], [address] [place] [address] Specimen Anatomical Collection Method Collection Time Receive d Time (Source) Location / / Volume Laterality Urine 02/07/2023 1:05 PM 1:05 CDT PM CDT Dixie GRACE URINE ORDERABLES Performing Organization Address City/State/ZIP Code Phon e Number [facility] [place] [address], [address] (ABNORMAL) Urine Culture (02/07/2023 1:05 PM CDT)Only the most recent of3 resultswithin the time period is included. [facility] Method Time Signature Final Report >= 100,000 cfu/ml Escherichia coli [place] <10,000 cfu/ml Normal site tressa present. [facility] Organism Escherichia [place] coli (A) [facility] Specimen Anatomical Collection Method Collection Time Receive d Time (Source) Location / / Volume Laterality Urine, Clean 02/07/2023 1:05 PM 3 7:32 Catch CDT PM CDT Narrative Organism Antibiotic Method Susceptibility Escherichia coli *PAL expressed in mcg/mL MINIMUM INHIBITORY PAL : MINT CONCENTRATION Escherichia coli Ampicillin MINIMUM INHIBITORY >=32: Resist ant CONCENTRATION Escherichia coli Amoxicillin/Clavulanate MINIMUM INHIBITORY 4: S usceptible CONCENTRATION Escherichia coli Ampicillin/Sulbactam MINIMUM INHIBITORY 16: Int ermediate CONCENTRATION Escherichia coli Piperacillin/Tazobactam MINIMUM INHIBITORY <=4: Susceptible CONCENTRATION Escherichia coli Cefpodoxime MINIMUM INHIBITORY <=0.25: Susc eptible CONCENTRATION Escherichia coli Cefotaxime MINIMUM INHIBITORY <=0.25: Susc eptible CONCENTRATION Escherichia coli Ceftazidime MINIMUM INHIBITORY <=1: Suscept ible CONCENTRATION Escherichia coli Ceftriaxone MINIMUM INHIBITORY <=0.25: Susc eptible CONCENTRATION Escherichia coli Cefepime MINIMUM INHIBITORY <=0.12: Susc eptible CONCENTRATION Escherichia coli Aztreonam MINIMUM INHIBITORY <=1: Suscept ible CONCENTRATION Escherichia coli Ertapenem MINIMUM INHIBITORY <=0.12: Susc eptible CONCENTRATION Escherichia coli Imipenem MINIMUM INHIBITORY <=0.25: Susc eptible CONCENTRATION Escherichia coli Meropenem MINIMUM INHIBITORY <=0.25: Susc eptible CONCENTRATION Escherichia coli Amikacin MINIMUM INHIBITORY 2: Susceptib le CONCENTRATION Escherichia coli Gentamicin MINIMUM INHIBITORY <=1: Suscept ible CONCENTRATION Escherichia coli Tobramycin MINIMUM INHIBITORY <=1: Suscept ible CONCENTRATION Escherichia coli Ciprofloxacin MINIMUM INHIBITORY <=0.06: Susc eptible CONCENTRATION Escherichia coli Levofloxacin MINIMUM INHIBITORY <=0.12: Susc eptible CONCENTRATION Escherichia coli Nitrofurantoin MINIMUM INHIBITORY <=16: Suscep tible CONCENTRATION Escherichia coli Trimethoprim/Sulfamethoxa MINIMUM INHIBITORY <= 20: Susceptible zole CONCENTRATION Dixie GRACE MICROBIOLOGY - GENERAL ORDER NICOLAS Performing Organization Address City/State/ZIP Code Phon e Number [facility] Unless otherwise noted, [place] [address] [place] all lab tests performed by: Division of Pathology and Laboratory Medicine [address] [place] [address] Cytology HPV 16/18 Genotyping and High Risk Pool (09/18/2022 11:27 AM MANAGER CAFE) Component Value Ref Range Test Analysis Performed Pathologis t Method Time At [facility] HPV Type 16 Negative Negative, 09/19/2022 [facility] Indetermi 5:50 PM santos, MANAGER CAFE Invalid HPV Type 18 Negative Negative, 09/19/2022 [facility] Indetermi 5:50 PM santos, MANAGER CAFE Invalid HPV High Risk Negative Negative, 09/19/2022 [facility] Non-16/18 Indetermi 5:50 PM santos, MANAGER CAFE Invalid Informational The sagar HPV Test ([facility], [place], [place]) is a qualitative in vitro diagnostic test for the detection of Human Papillomavirus in cervical specimens collected in [employer] Solution. T 09/19/2022 [facility] Points he test utilizes amplificati on of target DNA by the Polymerase Chain Reaction (PCR) and nucleic acid hybridization for the detection of 14 high-risk (HR) HPV types in a single analysis. The test specifi 5:50 PM loren identifies types HPV16 and HPV18 while concurrently detecting the other high risk types (31, 33, 35, 39, 45, 51, 52, 56, 58, 59, 66, and 68). MANAGER CAFE The performance characterist ics of this test were validated and determined by the [facility] cytology laboratory. These validation analyses have confirmed the accurate performance of the assay of the [facility] s stated limit of detection for the target of the test in various specimen types. The [facility] cytology laborator y is authorized under Clinical Laboratory Improvement Amendments (CLIA) to perform high-complexity testing. The [facility] Department of Pathology is accredited by the [employer] ([employer]). Specimen Anatomical Collection Method Collection Time Receive d Time (Source) Location / / Volume Laterality Swab (specimen) 09/18/2022 11:27 09/19/19 23 (Vagina, AM MANAGER CAFE 10:23 AM MANAGER CAFE ThinPrep, Liquid Based Preparation) [facility] CYTOLOGY ORDERABLES Performing Organization Address City/State/ZIP Code Phon e Number [facility] [place] [address], [place] [address] [place] [facility] MINE ENGINEERING MANAGER Interpretation (09/18/2022 11:27 AM MANAGER CAFE) Component Value Ref Test Analysis Performed Pathologis t Range Method Time At [facility] Gross 1 ThinPrep vial 09/20/2022 [facility] Description received 3:17 PM MANAGER CAFE Specimen Vagina, ThinPrep, 09/20/2022 [facility] Information Liquid Based 3:17 PM Preparation, MANAGER CAFE Swab, Specimen Satisfactory for 09/20/2022 [facility] Adequacy evaluation 3:17 PM MANAGER CAFE Diagnosis Negative for 09/20/2022 [facility] Elec tronically intraepithelial 3:17 PM sign ed by lesion or MANAGER CAFE Stewart Ruby malignancy M, CT(ASC P) on 09/20/2022 a t 3:17 PM Diagnosis Fungal forms 09/20/2022 [facility] Additional consistent with 3:17 PM Statements Valentine MANAGER CAFE HPV Reflex for Yes 09/20/2022 [facility] 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 Results are more reliable when a satisfactory sample is obtained on a regular repetitive basis and should 09/20/2022 [facility] Points be interpreted together with past and current clinical data . 3:17 PM Some tests reported here may have been developed and performance characteristics determined by [facility] Laboratory Medicine. These tests have not been specifically cleared or approved by the U.S. Food and Drug Administration. MANAGER CAFE Specimen Anatomical Collection Method Collection Time Receive d Time (Source) Location / / Volume Laterality Swab (specimen) 09/18/2022 11:27 09/19/19 23 (Vagina, AM MANAGER CAFE 10:23 AM MANAGER CAFE ThinPrep, Liquid Based Preparation) [facility] CYTOLOGY ORDERABLES Performing Organization Address City/State/ZIP Code Phon e Number [facility] [place] [address], [address] after 07/24/2022 Insurance Payer Benefit Plan / Subscriber ID Effective Dates Phone Addre ss Type Group [employer] MANAGED CIGNA HMO POS [id number] 2018-Present P O K[place]ELYN [id number] HMO CARE OPEN ACCESS [place] [address] Advance Directives Type Date 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 Advance Directives: 11/02/2021 Directive to Physicians Living Will and Family or Surrogates-Oskar trevino Will Advance Directives: 11/02/2021 Medical Bibiana r of Form Tamper Operator Medical Power of Form Tamper Operator Code Status Date Activated Date Inactivated Comments Full Code 11/06/2021 7:56 PM 11/09/2021 8:33 PM Care Teams 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 Relationship Specialty Start Date End Date Margot Benitez, PCP - General Gynecological Oncology 10/17/21 Patricio Hagen PCP - External Primary Obstetrics/Gynecology 10/19/21 MD Marquez Care Provider [address] [place] [address] [place] [address] Ashlee Kuo, Clinical Dietitian Nutrition 05/17/[address] [place] [id number] Maureen Zamarripa Consulting Physician Urology 05/09/23 MD Joshua [address] [place] [id number] Clare Carranza MD Consulting Physician Psychiatry 05/22/[address] [place] [id number] Niecy Deleon Nurse Practitioner Pediatric Medicine 05/07/22 R, 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
--- OUTSIDE RECORDS SUMMARY | 2023-07-24 16:00 | XMS REPORT | Continuity of Care Document ---
:1985 [facility] Organization [facility] t Address [address] [place] [address] Care Team Providers Name Role Phone Rogelio Evangelista MD Primary Care Physician [phone] SYSTEM, PROVIDER NOT IN Attending Clinician Unavailable Maureen Montemayor MD Attending Clinician [phone] MAUREEN MONTEMAYOR Attending Clinician Unavailable NIECY DELEON Attending Clinician Unavailable Niecy Deleon APRN Attending Clinician Zenaida Domínguez Attending Clinician Unavailable Klaus Grimaldo Attending Clinician Doc Tamayo Attending Clinician JAMI MCNAIR Attending Clinician Unavailable Jami Mcnair MD Attending Clinician MIHAELA WOODALL Attending Clinician Unavailable Eva Mahoney Attending Clinician EVA FELTON Attending Clinician Unavailable SWATHI MEYERS Attending Clinician Unavailable Dixie Woodson Attending Clinician CHAPARRITA ORELLANA Attending Clinician Unavailable Lisa SILVA, Lelo Garcia Attending Clinician Erica SILVA, Niesha Betts Attending Clinician Rabia SILVA, Catherine Ding Attending Clinician Unavailable MIKE OBRIEN Attending Clinician Unavailable Ayaan DANIELS, Ashlee Knutson Attending Clinician Unavailable Monica Ventura LCSW Attending Clinician HERNÁN HARDEN Attending Clinician Unavailable Hernán Cross Attending Clinician Unavailable SANTA DUQUE Attending Clinician Unavailable JOSHUA CHILDRESS Attending Clinician Unavailable Neville SILVA, Anibal Attending Clinician Unavailable CASTRO SIMMONS Attending Clinician Unavailable Shelley Buckner Attending Clinician Doctor Unassigned, [place] Attending Clinician Unavailable Lab, Adc Fam Pob I Attending Clinician Unavailable Lucita Koroma Attending Clinician Pcp, Patient Does Not Have A Attending Clinician [phone] NERISLOC Calvillo Attending Clinician Unavailable ALEIDA HOUSE Attending Clinician Unavailable ALEIDA HOUSE Attending Clinician Unavailable SANTA DUQUE Admitting Clinician Unavailable Shelley Buckner Admitting Clinician LOC CORDON Admitting Clinician Unavailable NELLA MAZA Admitting Clinician Unavailable Payers Payer Name Policy Type Policy Number Effective Date Expiration Date Praveen monk CIGNA OPEN [id number] 2018 00:00:00 ACCESS/OPEN ACCESS PLUS CIGNA II [id number] 2019 00:00:00 Problems Condition Condition Condition Status Onset Resolution Last Treating Co mments Source Name Details Category Date Date Treatment Clinician Date Relationsh Relationsh Disease Active U nivers ip ip 4-03 ity of distress distress 00:00: [place] with with [address] [facility] Decreased Decreased Disease Active Uni vers libido libido 3-10 ity of 00:00: [place] 00 MD Vin warner [facility] Dyspareuni Dyspareuni Disease Active U nivers a a 3-10 ity of 00:00: [place] 00 MD Vin warner [facility] Vaginal Vaginal Disease Active Univers dryness dryness 3-10 ity of 00:00: [place] 00 MD Vin warner [facility] Excessive Excessive Disease Active Uni vers and and 2-06 ity of frequent frequent 00:00: [place] menstruati menstruati 00 on with on with Vin irregular irregular n cycle cycle [facility] Neoplasm, Neoplasm, Disease Active Uni vers malignant malignant 2-03 ity of of of 00:00: [place] exocervix exocervix 00 MD Vin warner [facility] Positive Positive Disease Active Unive rs cervical cervical 2-03 ity of high risk high risk 00:[place] HPV DNA HPV DNA 00 [facility] Diagnosis Active 2019-092020-08-09 Memoria LITHIASIS [place] 10-05 12:20:00 l LITHIASIS 00:00: [place] Active 00 08/05/2020 [facility] [place] [facility] Right Right Disease Active [facility] externa [facility]: [facility] 00 [place] Infection Infection Disease Active [facility] of right of right 6-17 [facility] mastoid mastoid 00:00: [facility] bone bone 00 Center Obesity Obesity Disease Active [facility] 00[facility]: [facility] 00 [place] Right Right Disease Active [facility]itis [facility]17 [facility] media media 00:00: Medical 00 Center Adjustment Adjustment Disease Active U nivers disorder disorder 09-15 ity of with mixed [place] mixed [place] anxiety anxiety 00 depressed depressed n mood mood [facility] Hypothyroi Hypothyroi Disease Active U nivers dism dism - ity of 00:00: [place] 00 MD Vin warner [facility] Hiatal Hiatal Problem Resolve 2022-06-14 Mem oria hernia hernia d 22:02:53 l (disorder) (disorder) He rmann Resolved Problem 06/14/2022 [facility] Headache Headache Problem Active 2023-05-01 Memoria (finding) (finding) 10:32:55 l Active Avinash Problem 05/01/2023 [facility] [place] Malignant Malignant Problem Active 2023-05-01 Memoria tumor of tumor of 10:32:55 l cervix cervix Avinash (disorder) (disorder) Active Problem 05/01/2023 [facility] [place] Migraine Migraine Problem Active 2023-05-01 Memoria with aura with aura 10:32:55 l (disorder) (disorder) [place] Active Problem 05/01/2023 [facility] [place] No known No known Disease Unive rs active active ity of problems problems [facility] Allergies, Adverse Reactions, Alerts Allergy Allergy Status Severity Reaction(s) Onset Inactive Treating Comm ents Source Name Type Date Date Clinician CIPROFLO DRUG Active Nausea 2022-0 MD XACIN INGREDI 5-26 Anderso 00:00: n 00 CIPROFLO DRUG Active Nausea 3-0 MD XACIN INGREDI 5-26 Anderso 00:00: n 00 CIPROFLO DRUG Active Nausea 3-0 MD XACIN INGREDI 5-26 Anderso 00:00: n 00 CIPROFLO DRUG Active Nausea 3-0 MD XACIN INGREDI 5-26 Anderso 00:00: n 00 CIPROFLO DRUG Active Nausea 2023-0 MD XACIN INGREDI 5-26 Anderso 00:00: n 00 CIPROFLO DRUG Active Nausea 3-0 MD XACIN INGREDI 5-26 Anderso 00:00: n 00 CIPROFLO DRUG Active Nausea 3-0 MD XACIN INGREDI 5-26 Anderso 00:00: n 00 CIPROFLO DRUG Active Nausea 3-0 MD XACIN INGREDI 5-26 Anderso 00:00: n 00 CIPROFLO DRUG Active Nausea 2023-0 MD XACIN INGREDI 5-26 Anderso 00:00: n 00 CIPROFLO DRUG Active Nausea 2023-0 MD XACIN INGREDI 5-26 Anderso 00:00: n 00 CIPROFLO DRUG Active Nausea 2023-0 MD XACIN INGREDI 5-26 Anderso 00:00: n 00 CIPROFLO DRUG Active Nausea 2023-0 MD XACIN INGREDI -26 Anderso 00:00: n 00 CIPROFLO DRUG Active Nausea 3-0 MD XACIN INGREDI - Anderso 00:00: n 00 CIPROFLO DRUG Active Nausea 3-0 MD XACIN INGREDI - Anderso 00:00: n 00 CIPROFLO DRUG Active Nausea 3-0 MD XACIN INGREDI - Anderso 00:00: n 00 CIPROFLO DRUG Active Nausea 3-0 MD XACIN INGREDI - Anderso 00:00: n 00 CIPROFLO DRUG Active Nausea 3-0 MD XACIN INGREDI - Anderso 00:00: n 00 CIPROFLO DRUG Active Nausea 2022-0 MD XACIN INGREDI - Anderso 00:00: n 00 CIPROFLO DRUG Active Nausea 2022-0 MD XACIN INGREDI - Anderso 00:00: n 00 CIPROFLO DRUG Active Nausea 2022-0 MD XACIN INGREDI 02-07 Anderso 00:00: n 00 Ciproflo Propensi Active GI 2022-0 GI pain Unive rs xacin ty to Intolerance 02-07 ity o f adverse 00:00: [place] reaction 00 MD praveen [facility] NO KNOWN Drug Active Univers ALLERGIE Class ity of S [facility] No Known No Known Active Memori a Medicati Medicati l on on [place] Allergie Allergie s s Family History Family Member Diagnosis Comments Start Date Stop Date Source Natural brother Depression [facility] Natural brother Drug abuse [facility] Natural [facility] Natural father Diabetes [facility] Natural father Hyperlipidemia [facility] Natural father Hypertension [facility] Maternal grandmother [facility] Natural [facility] Natural mother Depression [facility] Natural mother Hypertension [facility] Natural mother Cancer [facility] Natural mother Diabetes [facility] Paternal aunt Leukemia [facility] Natural sister [facility] MD Osvaldo kramer [facility] Natural son [facility] MD [facility] Social History Social Habit Start Date Stop Date Quantity Comments Source ASSERTION 2017-01-28 [facility] Tobacco use and 2023-05-08 2023-05-08 Smokeless Universit y of exposure 00:00:00 00:00:00 tobacco non-user [facility] Alcohol intake 2023-05-08 2023-05-08 Ex-drinker University 00:00:00 00:00:00 (finding) [place] MD [facility] History of Social 2023-05-08 2023-05-08 Univers ity of function 00:00:00 00:00:00 [place] MD Osvaldo kramer [facility] Exposure to 2022-12-17 2022-12-27 Not sure University SARS-CoV-2 (event) 00:00:00 12:58:00 [place] [facility] Education 2022-11-22 2022-11-22 University of 00:00:00 00:00:00 [place] MD Osvaldo kramer [facility] Alcohol Comment 2022-11-22 2022-11-22 Socially-maybe Unive rsity of 00:00:00 00:00:00 1x a month [place] MD Osvaldo kramer [facility] Sex Assigned At [address] [facility] 00:00[facility]00 [facility] Smoking Status Start Date Stop Date Source Tobacco smoking status [facility] Tobacco smoking consumption [facility] Medications Ordered Filled Start Stop Current Ordering Indication Dosage Frequency Signature Comments Components Source Medication Medication Date Date Medication? Clinician (SIG) Name Name levothyroxi Yes 75ug Take 1 Univ ers ne 8-25 tablet (75 ity of (SYNTHROID, 23:37: mcg) by Prabhu as LEVOTHROID) 52 mouth 75 mcg daily. Anderso tablet n [facility] cranberry 2022- Yes Acute 1{capsu Take 1 U nivers extract 824 cystitis le} capsule by i ty of (Andrei) 00:00: 05:59 with mouth [place] 200 mg cap 00 :00 hematuria daily for MD 90 doses. Anderso n [facility] magnesium 2023-0 2023- No 311mg Chew 1 Univ ers hydroxide 8-24 08-24 tablet ity of (GARCIA 09:11: 00:00 (311 mg) Prabhu as CHEWS) 311 59 :00 every 4 MD MG chew (four) Anderso hours as n needed. [facility] [place] 2022-0 Yes 225 mg, Memoria Autoinjecto 8-14 SUB-Q, l r 225 17:07: qMonth, # [place] mg/1.5 mL 00 1 kit, 3 subcutaneou Refill(s), s solution Pharmacy: [facility] #[id number], 162.56, cm, 04/28/23 11:48:00 CDT, Height, 84.545, kg, 04/28/23 11:48:00 CDT, Weight Wendi 2022-0 Yes 225 mg, Memoria Autoinjecto 8-14 SUB-Q, l r 225 17:07: qMonth, # Avinash mg/1.5 mL 00 1 kit, 3 subcutaneou Refill(s), s solution Pharmacy: [facility] #[id number], 162.56, cm, 04/28/23 11:48:00 CDT, Height, 84.545, kg, 04/28/23 11:48:00 CDT, Weight Wend[place] 0 Yes 225 mg, Memoria Autoinjecto 8-14 SUB-Q, l r 225 17:07: qMonth, # [place] mg/1.5 mL 00 1 kit, 3 subcutaneou Refill(s), s solution Pharmacy: [facility] #[id number], 162.56, cm, 04/28/23 11:48:00 CDT, Height, 84.545, kg, 04/28/23 11:48:00 CDT, Weight Wendi 2022-0 Yes 225 mg, Memoria Autoinjecto 8-14 SUB-Q, l r 225 17:07: qMonth, # [place] mg/1.5 mL 00 1 kit, 3 subcutaneou Refill(s), s solution Pharmacy: [facility] #[id number], 162.56, cm, 04/28/23 11:48:00 CDT, Height, 84.545, kg, 04/28/23 11:48:00 CDT, Weight [place] 3-0 Yes 225 mg, Memoria Autoinjecto 8-14 SUB-Q, l r 225 17:07: qMonth, # Avinash mg/1.5 mL 00 1 kit, 3 subcutaneou Refill(s), s solution Pharmacy: [facility] #[id number], 162.56, cm, 04/28/23 11:48:00 CDT, Height, 84.545, kg, 04/28/23 11:48:00 CDT, Weight Imitrex 100 2023-0 Yes 100 mg = 1 Memoria mg oral 8-14 tab, PO, l tablet 17:06: PRN, PRN Avinash 00 for migraine headache, X 30 day, # 9 tab, 1 Refill(s), [id number], 162.56, cm, 04/28/23 11:48:00 CDT, Height, 84.545, kg, 04/28/23 11:48:00 CDT, Weight Imitrex 100 2022-0 Yes 100 mg = 1 Memoria mg oral 8-14 tab, PO, l tablet 17:06: PRN, PRN [place] 00 for migraine headache, X 30 day, # 9 tab, 1 Refill(s), [id number], 162.56, cm, 04/28/23 11:48:00 CDT, Height, 84.545, kg, 04/28/23 11:48:00 CDT, Weight Imitrex 100 3-0 Yes 100 mg = 1 Memoria mg oral 8-14 tab, PO, l tablet 17:06: PRN, PRN [place] 00 for migraine headache, X 30 day, # 9 tab, 1 Refill(s), [id number], 162.56, cm, 04/28/23 11:48:00 CDT, Height, 84.545, kg, 04/28/23 11:48:00 CDT, Weight Imitrex 100 2023-0 Yes 100 mg = 1 Memoria mg oral 8-14 tab, PO, l tablet 17:06: PRN, PRN Avinash 00 for migraine headache, X 30 day, # 9 tab, 1 Refill(s), Pharmacy: [facility] #[id number], 162.56, cm, 04/28/23 11:48:00 CDT, Height, 84.545, kg, 04/28/23 11:48:00 CDT, Weight Imitrex 100 2022-0 Yes 100 mg = 1 Memoria mg oral 8-14 tab, PO, l tablet 17:06: PRN, PRN for migraine headache, X 30 day, # 9 tab, 1 Refill(s), Pharmacy: [facility] #[id number], 162.56, cm, 04/28/23 11:48:00 CDT, Height, 84.545, kg, 04/28/23 11:48:00 CDT, Weight [place] Yes 60 mg = 1 Memori a Thyroid 60 8-14 tab, PO, l mg oral 16:56: Daily, # Ricardo n tablet 00 30 tab, 1 Refill(s) [place] 0 Yes 60 mg = 1 Memori a Thyroid 60 8-14 tab, PO, l mg oral 16:56: Daily, # Ricardo n tablet 00 30 tab, 1 Refill(s) [place] 2022-0 Yes 60 mg = 1 Memori a Thyroid 60 8-14 tab, PO, l mg oral 16:56: Daily, # Ricardo n tablet 00 30 tab, 1 Refill(s) [place] 0 Yes 60 mg = 1 Memori a Thyroid 60 8-14 tab, PO, l mg oral 16:56: Daily, # Ricardo n tablet 00 30 tab, 1 Refill(s) [place] 0 Yes 60 mg = 1 Memori a Thyroid 60 8-14 tab, PO, l mg oral 16:56: Daily, # Ricardo n tablet 00 30 tab, 1 Refill(s) [place] 0 Yes 60mg Take 1 Univers Thyroid 60 8-14 tablet (60 ity of mg tablet 00:00: mg) by Semaj thompson MD daily. [facility] vaginal Yes Insert Univers lubricant 811 into the ity of inst 09:25: vagina as Semaj Mor[facility] phen[facility]ri 2022- No Take by Un jr dine HCl 8-11 08-11 mouth. 2 ity of (AZO ORAL) 09:25: 00:00 tablets in [place] 30 :00 the AM and 2 tablets Anderso in the PM [facility] sulfamethox 2022- No Dysuria 1{tbl} Take 1 Univers azole-trime 5-26 06-03 tablet by it y of thoprim 00:00: 04:59 mouth [place] (BACTRIM 00 :00 twice DS) 800 daily for Anderso mg-160 mg 7 days. n per tablet [facility] sulfamethox 2022- No Dysuria 1{tbl} Take 1 Univers azole-trime 5-26 06-03 tablet by it y of thoprim 00:00: 04:59 mouth [place] (BACTRIM 00 :00 twice MD DS) 800 daily for Anderso mg-160 mg 7 days. n per tablet [facility] vaginal Yes Insert Univers lubricant 4-24 into the ity of inst 16:29: vagina as [place] 19 needed. MD Vin warner [facility] phenazopyri Yes Take by Uni vers dine HCl 4-24 mouth. 2 ity of (AZO ORAL) 16:29: tablets in [place] 19 the AM and 2 tablets Anderso in the PM [facility] vaginal Yes Insert Univers lubricant 4-14 into the ity of inst 15:05: vagina as [place] 32 needed. MD Vin warner [facility] phenazopyri Yes Take by Uni vers dine HCl 4-14 mouth. 2 ity of (AZO ORAL) 15:05: tablets in [place] 32 the AM and 2 tablets Anderso in the PM [facility] nystatin 2022- No Candidiasis Apply Univers (MYCOSTATIN 4-14 04-22 of skin topically ity of ) 100,000 00:00: 04:59 to [place] units/g 00 :00 affected MD powder area(s) Anderso twice n daily for Cancer 7 days. [place] nystatin 2022- No Candidiasis Apply Univers (MYCOSTATIN 4-14 -22 of skin topically ity of ) 100,000 00:00: 04:59 to [place] units/g 00 :00 affected MD powder area(s) Anderso twice n daily for Cancer 7 days. [place] nystatin 2022- No Candidiasis Apply Univers (MYCOSTATIN 4-14 22 of skin topically ity of ) 100,000 00:00: 04:59 to [place] units/g 00 :00 affected MD powder area(s) Anderso twice n daily for Cancer 7 days. [place] phenazopyri Yes Take by Uni vers dine HCl 4-05 mouth. 2 ity of (AZO ORAL) 22:04: tablets in [place] 55 the AM and 2 tablets Anderso in the PM [facility] vaginal Yes Insert Univers lubricant -05 into the ity of inst 11:23: vagina as [place] 21 needed. MD Banuelos [facility] escitalopra 2022- No Positive 5mg Take 1 Univers m (Lexapro) 3-06 12-24 cervical tablet (5 ity of 5 mg tablet 00:00: 00:00 high risk mg) by [place] 00 :00 HPV DNA mouth MD test every Anderso morning. [facility] escitalopra 2022- No Positive 5mg Take 1 Univers m (Lexapro) 3-24 -24 cervical tablet (5 ity of 5 mg tablet 00:00: 00:00 high risk mg) by [place] 00 :00 HPV DNA mouth MD test every Anderso morning. [facility] escitalopra 2022- No Positive 5mg Take 1 Univers m (Lexapro) 3-24 -24 cervical tablet (5 ity of 5 mg tablet 00:00: 00:00 high risk mg) by [place] 00 :00 HPV DNA mouth MD test every Anderso morning. [facility] escitalopra 2022- No Positive 5mg Take 1 Univers m (Lexapro) 3-24 -24 cervical tablet (5 ity of 5 mg tablet 00:00: 00:00 high risk mg) by [place] 00 :00 HPV DNA mouth MD test every Anderso morning. [facility] ALPRAZolam Yes Univers (XANAX) 1 -22 ity of mg tablet 00:00: [place] 00 MD Vin warner [facility] ergocalcife Yes Univer s rol - ity of (DRISDOL) 00:00: [place] 50,000 00 MD units Anderso capsule [facility] ALPRAZolam Yes Univers (XANAX) 1 - ity of mg tablet 00:00: [place] 00 MD Banuelos [facility] ergocalcife Yes Univer s rol - ity of (DRISDOL) 00:00: [place] 50,000 00 MD units Anderso capsule [facility] ALPRAZolam Yes Univers (XANAX) 1 10-06 ity of mg tablet 00:00: [place] 00 MD Vin warner [facility] ergocalcife Yes Univer s rol - ity of (DRISDOL) 00:00: [place] 50,000 00 [facility] ALPRAZolam Yes every 8 Univ ers (XANAX) 1 - (eight) ity of mg tablet 00:00: hours [place] 00 needed. MD Banuelos [facility] ergocalcife Yes Univer s rol - ity of (DRISDOL) 00:00: [place] 50,000 [facility] No Candidiasis 200mg Take 1 Univers (Diflucan) 09-22 of vagina tablet i ty of 200 mg 00:00: 05:59 <Acute> (200 mg) Prabhu as tablet 00 :00 by mouth once for 1 Anderso dose. [facility] fluconazole 2022- No Candidiasis 200mg Take 1 Univers (Diflucan) 09-22 of vagina tablet i ty of 200 mg 00:00: 05:59 <Acute> (200 mg) Prabhu as tablet 00 :00 by mouth once for 1 Anderso dose. [facility] fluconazole 2022- No Candidiasis 200mg Take 1 Univers (Diflucan) 09-22 of vagina tablet i ty of 200 mg 00:00: 05:59 <Acute> (200 mg) Prabhu as tablet 00 :00 by mouth once for 1 Anderso dose. [facility] fluconazole 2022- No Candidiasis 200mg Take 1 Univers (Diflucan) 09-22 of vagina tablet i ty of 200 mg 00:00: 05:59 <Acute> (200 mg) Prabhu as tablet 00 :00 by mouth once for 1 Anderso dose. n [facility] diclofenac 2021-09- No TAKE 1 Univ ers sodium 0-04 01-04 TABLET BY ity of (VOLTAREN) 00:00: 00:00 MOUTH [place] 75 mg EC 00 :00 TWICE [facility]-09- No TAKE 1 Univ ers sodium 0-04 01-04 TABLET BY ity of (VOLTAREN) 00:00: 00:00 MOUTH [place] 75 mg EC 00 :00 TWICE MD tablet DAILY [facility] diclof[facility]ac 2021-09- No TAKE 1 Univ ers sodium 0-04 01-04 TABLET BY ity of (VOLTAREN) 00:00: 00:00 MOUTH [place] 75 mg EC 00 :00 TWICE MD tablet DAILY [facility] diclofenac 2021-09- No TAKE 1 Univ ers sodium 0-04 01-04 TABLET BY ity of (VOLTAREN) 00:00: 00:00 MOUTH [place] 75 mg EC 00 :00 TWICE MD tablet DAILY [facility] escitalopra 2021-09 Yes Adjustment 5mg Take 1 Univers m (Lexapro) 0-03 disorder tablet (5 ity of 5 mg tablet 00:00: with mixed mg) by anxiety and mouth depressed every Anderso mood morning. n [facility] Dodex 2021-09 Yes ADMINISTER Univers mcg/mL 0-03 1 ML IN ity of injection 00:00: THE MUSCLE [place] 00 MONTHLY MD Banuelos [facility] escitalopra 2021-09 Yes Adjustment 5mg Take 1 Univers m (Lexapro) 0-03 disorder tablet (5 ity of 5 mg tablet 00:00: with mixed mg) by anxiety and mouth depressed every Anderso mood morning. [facility] Dodex 2021-09 Yes ADMINISTER Univers mcg/mL 0-03 1 ML IN ity of injection 00:00: [place]CLE [place] 00 MONTHLY [facility] Adjustment 5mg Take 1 Univers m (Lexapro) 0-03 disorder tablet (5 ity of 5 mg tablet 00:00: with mixed mg) by [place] [id number] anxiety and mouth depressed every Anderso mood morning. n [facility] 2021-09 Yes ADMINISTER Univers mcg/mL 0-03 1 ML IN ity of injection 00:00: [place]CLE [place] 00 MONTHLY MD Vin warner [facility] 2021-09 Yes Adjustment 5mg Take 1 Univers m (Lexapro) 0-03 disorder tablet (5 ity of 5 mg tablet 00:00: with mixed mg) by [place] [id number] anxiety and mouth depressed every Anderso mood morning. n [facility] 2021-09 Yes ADMINISTER Univers mcg/mL 0-03 1 ML IN ity of injection 00:00: [place]CLE [place] 00 MONTHLY [facility] No Dysuria 100mg Take 1 Univers oin 06-14- capsule ity of monohyd/m-c 00:00: 04:59 (100 mg) [place] ryst 00 :00 by mouth (Joshua) twice Anderso 100 mg daily for n capsule 5 days. [facility] 2021- No Dysuria 100mg Take 1 Univers oin 06-14 10-06 capsule ity of monohyd/m-c 00:00: 04:59 (100 mg) [place] ryst 00 :00 by mouth (Joshua) twice Anderso 100 mg daily for n capsule 5 [facility]. [facility] No Dysuria 100mg Take 1 Univers oin -30 10-06 capsule ity of monohyd/m-c 00:00: 04:59 (100 mg) [place] ryst 00 :00 by mouth (Joshua) twice Anderso 100 mg daily for n capsule 5 days. [email or web address] 2021- No Adjustment 5mg Take 1 Univers m (Lexapro) 05-22 10-03 disorder tablet (5 ity of 5 mg tablet 00:00: 00:00 with mixed mg) by [place] 00 :00 anxiety and mouth MD depressed every Anderso mood morning. n [facility] escitalopra 2021- No Adjustment 5mg Take 1 Univers m (Lexapro) 05-22 disorder tablet (5 ity of 5 mg tablet 00:00: 00:00 with mixed mg) by [place] 00 :00 anxiety and mouth MD depressed every Anderso mood morning. n [facility] escitalopra 2021- No Adjustment 5mg Take 1 Univers m (Lexapro) 05-22 disorder tablet (5 ity of 5 mg tablet 00:00: 00:00 with mixed mg) by [place] 00 :00 anxiety and mouth MD depressed every Anderso mood morning. n [facility] propranolol 2021-0 Yes 10 mg = 1 M emoria 10 mg oral 8-23 tab, PO, l tablet 15:38: BID, # 180 [place] nn 00 tab, 1 Refill(s), Pharmacy: [facility] #[id number], 162.56, cm, 04/26/22 11:29:00 CDT, Height, 76.875, kg, 04/26/22 11:29:00 CDT, Weight propranolol 2021-0 Yes 10 mg = 1 M emoria 10 mg oral 8-23 tab, PO, l tablet 15:38: BID, # 180 [place] nn 00 tab, 1 Refill(s), Pharmacy: [facility] #[id number], 162.56, cm, 04/26/22 11:29:00 CDT, Height, 76.875, kg, 04/26/22 11:29:00 CDT, Weight propranolol 2021-0 Yes 10 mg = 1 M emoria 10 mg oral 8-23 tab, PO, l tablet 15:38: BID, # 180 [place] nn 00 tab, 1 Refill(s), Pharmacy: [facility] STORE #[id number], 162.56, cm, 04/26/22 11:29:00 CDT, Height, 76.875, kg, 04/26/22 11:29:00 CDT, Weight propranolol 2-0 Yes 10 mg = 1 M emoria 10 mg oral 8-23 tab, PO, l tablet 15:38: BID, # 180 Ivory nn 00 tab, 1 Refill(s), Pharmacy: [facility] STORE #[id number], 162.56, cm, 04/26/22 11:29:00 CDT, Height, 76.875, kg, 04/26/22 11:29:00 CDT, Weight propranolol 2022-0 Yes 10 mg = 1 M emoria 10 mg oral 8-23 tab, PO, l tablet 15:38: BID, # 180 Ivory nn 00 tab, 1 Refill(s), Pharmacy: [facility] #[id number], 162.56, cm, 04/26/22 11:29:00 CDT, Height, 76.875, kg, 04/26/22 11:29:00 CDT, Weight propranolol 2022-0 Yes 10 mg = 1 M emoria 10 mg oral 8-23 tab, PO, l tablet 15:38: BID, # 180 Ivory nn 00 tab, 1 Refill(s), Pharmacy: [facility] [id number], 162.56, cm, 04/26/22 11:29:00 CDT, Height, 76.875, kg, 04/26/22 11:29:00 CDT, Weight propranolol 2022-0 Yes 10 mg = 1 M emoria 10 mg oral 8-23 tab, PO, l tablet 15:38: BID, # 180 Ivory nn 00 tab, 1 Refill(s), Pharmacy: [facility] [place][id number], 162.56, cm, 04/26/22 11:29:00 CDT, Height, 76.875, kg, 04/26/22 11:29:00 CDT, Weight propranolol 2022-0 Yes 10 mg = 1 M emoria 10 mg oral 8-23 tab, PO, l tablet 15:38: BID, # 180 Ivory nn 00 tab, 1 Refill(s), Pharmacy: [facility] #[id number], 162.56, cm, 04/26/22 11:29:00 CDT, Height, 76.875, kg, 04/26/22 11:29:00 CDT, Weight propranolol 2022-0 Yes 10 mg = 1 M emoria 10 mg oral 8-23 tab, PO, l tablet 15:38: BID, # 180 Ivory nn 00 tab, 1 Refill(s), Pharmacy: [facility] #[id number], 162.56, cm, 04/26/22 11:29:00 CDT, Height, 76.875, kg, 04/26/22 11:29:00 CDT, Weight propranolol 2022-0 Yes 10 mg = 1 M emoria 10 mg oral 8-23 tab, PO, l tablet 15:38: BID, # 180 Ivory nn 00 tab, 1 Refill(s), Pharmacy: [facility] #[id number], 162.56, cm, 04/26/22 11:29:00 CDT, Height, 76.875, kg, 04/26/22 11:29:00 CDT, Weight propranolol 2022-0 Yes 10 mg = 1 M emoria 10 mg oral 8-23 tab, PO, l tablet 15:38: BID, # 180 Ivory nn 00 tab, 1 Refill(s), Pharmacy: [facility] #[id number], 162.56, cm, 04/26/22 11:29:00 CDT, Height, 76.875, kg, 04/26/22 11:29:00 CDT, Weight propranolol 2022-0 Yes 10 mg = 1 M emoria 10 mg oral 8-23 tab, PO, l tablet 15:38: BID, # 180 Ivory nn 00 tab, 1 Refill(s), Pharmacy: [facility] [place][id number], 162.56, cm, 04/26/22 11:29:00 CDT, Height, 76.875, kg, 04/26/22 11:29:00 CDT, Weight propranolol 2022-0 Yes 10 mg = 1 M emoria 10 mg oral 8-23 tab, PO, l tablet 15:38: BID, # 180 Ivory nn 00 tab, 1 Refill(s), Pharmacy: [facility] #[id number], 162.56, cm, 04/26/22 11:29:00 CDT, Height, 76.875, kg, 04/26/22 11:29:00 CDT, Weight propranolol 2022-0 Yes 10 mg = 1 M emoria 10 mg oral 8-23 tab, PO, l tablet 15:38: BID, # 180 Ivory nn 00 tab, 1 Refill(s), Pharmacy: [facility] #[id number], 162.56, cm, 04/26/22 11:29:00 CDT, Height, 76.875, kg, 04/26/22 11:29:00 CDT, Weight propranolol 2022-0 Yes 10 mg = 1 M emoria 10 mg oral 8-23 tab, PO, l tablet 15:38: BID, # 180 Ivory nn 00 tab, 1 Refill(s), Pharmacy: [facility] STORE #[id number], 162.56, cm, 04/26/22 11:29:00 CDT, Height, 76.875, kg, 04/26/22 11:29:00 CDT, Weight propranolol 2022-0 Yes 10 mg = 1 M emoria 10 mg oral 8-23 tab, PO, l tablet 15:38: BID, # 180 Ivory nn 00 tab, 1 Refill(s), Pharmacy: [facility] #[id number], 162.56, cm, 04/26/22 11:29:00 CDT, Height, 76.875, kg, 04/26/22 11:29:00 CDT, Weight propranolol 2022-0 Yes 10 mg = 1 M emoria 10 mg oral 8-23 tab, PO, l tablet 15:38: BID, # 180 Ivory nn 00 tab, 1 Refill(s), Pharmacy: [facility] [place][id number], 162.56, cm, 04/26/22 11:29:00 CDT, Height, 76.875, kg, 04/26/22 11:29:00 CDT, Weight propranolol 2022-0 Yes 10 mg = 1 M emoria 10 mg oral 8-23 tab, PO, l tablet 15:38: BID, # 180 Ivory nn 00 tab, 1 Refill(s), Pharmacy: [facility] #[id number], 162.56, cm, 04/26/22 11:29:00 CDT, Height, 76.875, kg, 04/26/22 11:29:00 CDT, Weight propranolol 2022-0 Yes 10 mg = 1 M emoria 10 mg oral 8-23 tab, PO, l tablet 15:38: BID, # 180 Ivory nn 00 tab, 1 Refill(s), Pharmacy: [facility] #[id number], 162.56, cm, 04/26/22 11:29:00 CDT, Height, 76.875, kg, 04/26/22 11:29:00 CDT, Weight propranolol 2022-0 Yes 10 mg = 1 M emoria 10 mg oral 8-23 tab, PO, l tablet 15:38: BID, # 180 Ivory nn 00 tab, 1 Refill(s), Pharmacy: [facility] #[id number], 162.56, cm, 04/26/22 11:29:00 CDT, Height, 76.875, kg, 04/26/22 11:29:00 CDT, Weight propranolol 2022-0 Yes 10 mg = 1 M emoria 10 mg oral 8-23 tab, PO, l tablet 15:38: BID, # 180 Ivory nn 00 tab, 1 Refill(s), Pharmacy: [facility] #[id number], 162.56, cm, 04/26/22 11:29:00 CDT, Height, 76.875, kg, 04/26/22 11:29:00 CDT, Weight propranolol 2022-0 Yes 10 mg = 1 M emoria 10 mg oral 8-23 tab, PO, l tablet 15:38: BID, # 180 Ivory nn 00 tab, 1 Refill(s), Pharmacy: [facility] #[id number], 162.56, cm, 04/26/22 11:29:00 CDT, Height, 76.875, kg, 04/26/22 11:29:00 CDT, Weight Imitrex 100 2022-0 Yes 100 mg = 1 Memoria mg oral 8-12 tab, PO, l tablet 16:42: Daily, PRN Ivory nn 00 for migraine headache, X 9 day, # 9 tab, 1 Refill(s), Pharmacy: [facility] #[id number], 162.56, cm, 04/26/22 11:29:00 CDT, Height, 76.875, kg, 04/26/22 11:29:00 CDT, Weight propranolol 2022-0 Yes 10 mg = 1 M emoria 10 mg oral 8-12 tab, PO, l tablet 16:42: BID, # 60 Ricardo n 00 tab, 3 Refill(s), Pharmacy: [facility] #[id number], 162.56, cm, 04/26/22 11:29:00 CDT, Height, 76.875, kg, 04/26/22 11:29:00 CDT, Weight Imitrex 100 2022-0 Yes 100 mg = 1 Memoria mg oral 8-12 tab, PO, l tablet 16:42: Daily, PRN Ivroy nn 00 for migraine headache, X 9 day, # 9 tab, 1 Refill(s), Pharmacy: [facility] #[id number], 162.56, cm, 04/26/22 11:29:00 CDT, Height, 76.875, kg, 04/26/22 11:29:00 CDT, Weight propranolol 2022-0 Yes 10 mg = 1 M emoria 10 mg oral 8-12 tab, PO, l tablet 16:42: BID, # 60 Ricardo n 00 tab, 3 Refill(s), Pharmacy: [facility] #[id number], 162.56, cm, 04/26/22 11:29:00 CDT, Height, 76.875, kg, 04/26/22 11:29:00 CDT, Weight Imitrex 100 2022-0 Yes 100 mg = 1 Memoria mg oral 8-12 tab, PO, l tablet 16:42: Daily, PRN Ivory nn 00 for migraine headache, X 9 day, # 9 tab, 1 Refill(s), Pharmacy: [facility] #[id number], 162.56, cm, 04/26/22 11:29:00 CDT, Height, 76.875, kg, 04/26/22 11:29:00 CDT, Weight propranolol 2022-0 Yes 10 mg = 1 M emoria 10 mg oral 8-12 tab, PO, l tablet 16:42: BID, # 60 Ricardo n 00 tab, 3 Refill(s), Pharmacy: [facility] #[id number], 162.56, cm, 04/26/22 11:29:00 CDT, Height, 76.875, kg, 04/26/22 11:29:00 CDT, Weight Imitrex 100 2-0 Yes 100 mg = 1 Memoria mg oral 8-12 tab, PO, l tablet 16:42: Daily, PRN Ivory nn 00 for migraine headache, X 9 day, # 9 tab, 1 Refill(s), Pharmacy: [facility] #[id number], 162.56, cm, 04/26/22 11:29:00 CDT, Height, 76.875, kg, 04/26/22 11:29:00 CDT, Weight propranolol 2-0 Yes 10 mg = 1 M emoria 10 mg oral 8-12 tab, PO, l tablet 16:42: BID, # 60 Ricardo n 00 tab, 3 Refill(s), Pharmacy: [facility] #[id number], 162.56, cm, 04/26/22 11:29:00 CDT, Height, 76.875, kg, 04/26/22 11:29:00 CDT, Weight Imitrex 100 2021-0 Yes 100 mg = 1 Memoria mg oral 8-12 tab, PO, l tablet 16:42: Daily, PRN Ivory nn 00 for migraine headache, X 9 day, # 9 tab, 1 Refill(s), Pharmacy: [facility] #[id number], 162.56, cm, 04/26/22 11:29:00 CDT, Height, 76.875, kg, 04/26/22 11:29:00 CDT, Weight propranolol 2-0 Yes 10 mg = 1 M emoria 10 mg oral 8-12 tab, PO, l tablet 16:42: BID, # 60 Ricardo n 00 tab, 3 Refill(s), Pharmacy: [facility] #[id number], 162.56, cm, 04/26/22 11:29:00 CDT, Height, 76.875, kg, 04/26/22 11:29:00 CDT, Weight Imitrex 100 2-0 Yes 100 mg = 1 Memoria mg oral 8-12 tab, PO, l tablet 16:42: Daily, PRN Ivory nn 00 for migraine headache, X 9 day, # 9 tab, 1 Refill(s), Pharmacy: [facility] #[id number], 162.56, cm, 04/26/22 11:29:00 CDT, Height, 76.875, kg, 04/26/22 11:29:00 CDT, Weight propranolol 2022-0 Yes 10 mg = 1 M emoria 10 mg oral 8-12 tab, PO, l tablet 16:42: BID, # 60 Ricardo n 00 tab, 3 Refill(s), Pharmacy: [facility] #[id number], 162.56, cm, 04/26/22 11:29:00 CDT, Height, 76.875, kg, 04/26/22 11:29:00 CDT, Weight Imitrex 100 2022-0 Yes 100 mg = 1 Memoria mg oral 8-12 tab, PO, l tablet 16:42: Daily, PRN Ivory nn 00 for migraine headache, X 9 day, # 9 tab, 1 Refill(s), Pharmacy: [facility] #[id number], 162.56, cm, 04/26/22 11:29:00 CDT, Height, 76.875, kg, 04/26/22 11:29:00 CDT, Weight propranolol 2022-0 Yes 10 mg = 1 M emoria 10 mg oral 8-12 tab, PO, l tablet 16:42: BID, # 60 Ricardo n 00 tab, 3 Refill(s), Pharmacy: [facility] #[id number], 162.56, cm, 04/26/22 11:29:00 CDT, Height, 76.875, kg, 04/26/22 11:29:00 CDT, Weight Imitrex 100 2022-0 Yes 100 mg = 1 Memoria mg oral 8-12 tab, PO, l tablet 16:42: Daily, PRN Ivory nn 00 for migraine headache, X 9 day, # 9 tab, 1 Refill(s), Pharmacy: [facility] #[id number], 162.56, cm, 04/26/22 11:29:00 CDT, Height, 76.875, kg, 04/26/22 11:29:00 CDT, Weight propranolol 2022-0 Yes 10 mg = 1 M emoria 10 mg oral 8-12 tab, PO, l tablet 16:42: BID, # 60 Ricardo n 00 tab, 3 Refill(s), Pharmacy: [facility] #[id number], 162.56, cm, 04/26/22 11:29:00 CDT, Height, 76.875, kg, 04/26/22 11:29:00 CDT, Weight Imitrex 100 2022-0 Yes 100 mg = 1 Memoria mg oral 8-12 tab, PO, l tablet 16:42: Daily, PRN Ivory nn 00 for migraine headache, X 9 day, # 9 tab, 1 Refill(s), Pharmacy: [facility] #[id number], 162.56, cm, 04/26/22 11:29:00 CDT, Height, 76.875, kg, 04/26/22 11:29:00 CDT, Weight propranolol 2022-0 Yes 10 mg = 1 M emoria 10 mg oral 8-12 tab, PO, l tablet 16:42: BID, # 60 Ricardo n 00 tab, 3 Refill(s), Pharmacy: [facility] #[id number], 162.56, cm, 04/26/22 11:29:00 CDT, Height, 76.875, kg, 04/26/22 11:29:00 CDT, Weight Imitrex 100 2022-0 Yes 100 mg = 1 Memoria mg oral 8-12 tab, PO, l tablet 16:42: Daily, PRN Ivory nn 00 for migraine headache, X 9 day, # 9 tab, 1 Refill(s), Pharmacy: [facility] #[id number], 162.56, cm, 04/26/22 11:29:00 CDT, Height, 76.875, kg, 04/26/22 11:29:00 CDT, Weight propranolol 2022-0 Yes 10 mg = 1 M emoria 10 mg oral 8-12 tab, PO, l tablet 16:42: BID, # 60 Ricardo n 00 tab, 3 Refill(s), Pharmacy: [facility] #[id number], 162.56, cm, 04/26/22 11:29:00 CDT, Height, 76.875, kg, 04/26/22 11:29:00 CDT, Weight Imitrex 100 2022-0 Yes 100 mg = 1 Memoria mg oral 8-12 tab, PO, l tablet 16:42: Daily, PRN Ivory nn 00 for migraine headache, X 9 day, # 9 tab, 1 Refill(s), Pharmacy: [facility] STORE #[id number], 162.56, cm, 04/26/22 11:29:00 CDT, Height, 76.875, kg, 04/26/22 11:29:00 CDT, Weight propranolol 2021-0 Yes 10 mg = 1 M emoria 10 mg oral 8-12 tab, PO, l tablet 16:42: BID, # 60 Ricardo n 00 tab, 3 Refill(s), Pharmacy: [facility] STORE #[id number], 162.56, cm, 04/26/22 11:29:00 CDT, Height, 76.875, kg, 04/26/22 11:29:00 CDT, Weight Imitrex 100 2021-0 Yes 100 mg = 1 Memoria mg oral 8-12 tab, PO, l tablet 16:42: Daily, PRN Ivory nn 00 for migraine headache, X 9 day, # 9 tab, 1 Refill(s), Pharmacy: [facility] STORE #[id number], 162.56, cm, 04/26/22 11:29:00 CDT, Height, 76.875, kg, 04/26/22 11:29:00 CDT, Weight propranolol 2021-0 Yes 10 mg = 1 M emoria 10 mg oral 8-12 tab, PO, l tablet 16:42: BID, # 60 Ricardo n 00 tab, 3 Refill(s), Pharmacy: [facility] STORE #[id number], 162.56, cm, 04/26/22 11:29:00 CDT, Height, 76.875, kg, 04/26/22 11:29:00 CDT, Weight Imitrex 100 2021-0 Yes 100 mg = 1 Memoria mg oral 8-12 tab, PO, l tablet 16:42: Daily, PRN Ivory nn 00 for migraine headache, X 9 day, # 9 tab, 1 Refill(s), Pharmacy: [facility] #[id number], 162.56, cm, 04/26/22 11:29:00 CDT, Height, 76.875, kg, 04/26/22 11:29:00 CDT, Weight propranolol 2-0 Yes 10 mg = 1 M emoria 10 mg oral 8-12 tab, PO, l tablet 16:42: BID, # 60 Ricardo n 00 tab, 3 Refill(s), Pharmacy: [facility] #[id number], 162.56, cm, 04/26/22 11:29:00 CDT, Height, 76.875, kg, 04/26/22 11:29:00 CDT, Weight Imitrex 100 2022-0 Yes 100 mg = 1 Memoria mg oral 8-12 tab, PO, l tablet 16:42: Daily, PRN Ivory nn 00 for migraine headache, X 9 day, # 9 tab, 1 Refill(s), Pharmacy: [facility] [place][id number], 162.56, cm, 04/26/22 11:29:00 CDT, Height, 76.875, kg, 04/26/22 11:29:00 CDT, Weight propranolol 2-0 Yes 10 mg = 1 M emoria 10 mg oral 8-12 tab, PO, l tablet 16:42: BID, # 60 Ricardo n 00 tab, 3 Refill(s), Pharmacy: [facility] #[id number], 162.56, cm, 04/26/22 11:29:00 CDT, Height, 76.875, kg, 04/26/22 11:29:00 CDT, Weight Imitrex 100 2-0 Yes 100 mg = 1 Memoria mg oral 8-12 tab, PO, l tablet 16:42: Daily, PRN Ivory nn 00 for migraine headache, X 9 day, # 9 tab, 1 Refill(s), Pharmacy: [facility] #[id number], 162.56, cm, 04/26/22 11:29:00 CDT, Height, 76.875, kg, 04/26/22 11:29:00 CDT, Weight propranolol 2022-0 Yes 10 mg = 1 M emoria 10 mg oral 8-12 tab, PO, l tablet 16:42: BID, # 60 Ricardo n 00 tab, 3 Refill(s), Pharmacy: [facility] #[id number], 162.56, cm, 04/26/22 11:29:00 CDT, Height, 76.875, kg, 04/26/22 11:29:00 CDT, Weight Imitrex 100 2021-0 Yes 100 mg = 1 Memoria mg oral 8-12 tab, PO, l tablet 16:42: Daily, PRN Ivory nn 00 for migraine headache, X 9 day, # 9 tab, 1 Refill(s), Pharmacy: [facility] #[id number], 162.56, cm, 04/26/22 11:29:00 CDT, Height, 76.875, kg, 04/26/22 11:29:00 CDT, Weight propranolol 2021-0 Yes 10 mg = 1 M emoria 10 mg oral 8-12 tab, PO, l tablet 16:42: BID, # 60 Ricardo n 00 tab, 3 Refill(s), Pharmacy: [facility] #[id number], 162.56, cm, 04/26/22 11:29:00 CDT, Height, 76.875, kg, 04/26/22 11:29:00 CDT, Weight Imitrex 100 2021-0 Yes 100 mg = 1 Memoria mg oral 8-12 tab, PO, l tablet 16:42: Daily, PRN Ivory nn 00 for migraine headache, X 9 day, # 9 tab, 1 Refill(s), Pharmacy: [facility] #[id number], 162.56, cm, 04/26/22 11:29:00 CDT, Height, 76.875, kg, 04/26/22 11:29:00 CDT, Weight propranolol 2021-0 Yes 10 mg = 1 M emoria 10 mg oral 8-12 tab, PO, l tablet 16:42: BID, # 60 Ricardo n 00 tab, 3 Refill(s), Pharmacy: [facility] #[id number], 162.56, cm, 04/26/22 11:29:00 CDT, Height, 76.875, kg, 04/26/22 11:29:00 CDT, Weight Imitrex 100 2-0 Yes 100 mg = 1 Memoria mg oral 8-12 tab, PO, l tablet 16:42: Daily, PRN Ivory nn 00 for migraine headache, X 9 day, # 9 tab, 1 Refill(s), Pharmacy: [facility] STORE #[id number], 162.56, cm, 04/26/22 11:29:00 CDT, Height, 76.875, kg, 04/26/22 11:29:00 CDT, Weight propranolol 2022-0 Yes 10 mg = 1 M emoria 10 mg oral 8-12 tab, PO, l tablet 16:42: BID, # 60 Ricardo n 00 tab, 3 Refill(s), Pharmacy: [facility] #[id number], 162.56, cm, 04/26/22 11:29:00 CDT, Height, 76.875, kg, 04/26/22 11:29:00 CDT, Weight Imitrex 100 2022-0 Yes 100 mg = 1 Memoria mg oral 8-12 tab, PO, l tablet 16:42: Daily, PRN Ivory nn 00 for migraine headache, X 9 day, # 9 tab, 1 Refill(s), Pharmacy: [facility] #[id number], 162.56, cm, 04/26/22 11:29:00 CDT, Height, 76.875, kg, 04/26/22 11:29:00 CDT, Weight propranolol 2022-0 Yes 10 mg = 1 M emoria 10 mg oral 8-12 tab, PO, l tablet 16:42: BID, # 60 Ricardo n 00 tab, 3 Refill(s), Pharmacy: [facility] #[id number], 162.56, cm, 04/26/22 11:29:00 CDT, Height, 76.875, kg, 04/26/22 11:29:00 CDT, Weight Imitrex 100 2022-0 Yes 100 mg = 1 Memoria mg oral 8-12 tab, PO, l tablet 16:42: Daily, PRN Ivory nn 00 for migraine headache, X 9 day, # 9 tab, 1 Refill(s), Pharmacy: [facility] #[id number], 162.56, cm, 04/26/22 11:29:00 CDT, Height, 76.875, kg, 04/26/22 11:29:00 CDT, Weight propranolol 2022-0 Yes 10 mg = 1 M emoria 10 mg oral 8-12 tab, PO, l tablet 16:42: BID, # 60 Ricardo n 00 tab, 3 Refill(s), Pharmacy: [facility] #[id number], 162.56, cm, 04/26/22 11:29:00 CDT, Height, 76.875, kg, 04/26/22 11:29:00 CDT, Weight Imitrex 100 2022-0 Yes 100 mg = 1 Memoria mg oral 8-12 tab, PO, l tablet 16:42: Daily, PRN Ivory nn 00 for migraine headache, X 9 day, # 9 tab, 1 Refill(s), Pharmacy: [facility] #[id number], 162.56, cm, 04/26/22 11:29:00 CDT, Height, 76.875, kg, 04/26/22 11:29:00 CDT, Weight propranolol 2022-0 Yes 10 mg = 1 M emoria 10 mg oral 8-12 tab, PO, l tablet 16:42: BID, # 60 Ricardo n 00 tab, 3 Refill(s), Pharmacy: [facility] #[id number], 162.56, cm, 04/26/22 11:29:00 CDT, Height, 76.875, kg, 04/26/22 11:29:00 CDT, Weight Imitrex 100 2022-0 Yes 100 mg = 1 Memoria mg oral 8-12 tab, PO, l tablet 16:42: Daily, PRN Ivory nn 00 for migraine headache, X 9 day, # 9 tab, 1 Refill(s), Pharmacy: [facility] #[id number], 162.56, cm, 04/26/22 11:29:00 CDT, Height, 76.875, kg, 04/26/22 11:29:00 CDT, Weight propranolol 2022-0 Yes 10 mg = 1 M emoria 10 mg oral 8-12 tab, PO, l tablet 16:42: BID, # 60 Ricardo n 00 tab, 3 Refill(s), Pharmacy: [facility] #[id number], 162.56, cm, 04/26/22 11:29:00 CDT, Height, 76.875, kg, 04/26/22 11:29:00 CDT, Weight chlorhexidi 2022- No Unive rs ne 04-26 ity of (PERIDEX) 00:00: 00:00 [place] 0.12% 00 :00 MD solution [facility] chlorhexidi 2022- No Unive rs ne 04-26 ity of (PERIDEX) 00:00: 00:00 [place] 0.12% 00 :00 MD solution [facility] chlorhexidi 2022- No Unive rs ne 04-26 ity of (PERIDEX) 00:00: 00:00 [place] 0.12% 00 :00 MD solution [facility] chlorhexidi 2022- No Unive rs ne 04-26 ity of (PERIDEX) 00:00: 00:00 [place] 0.12% 00 :00 MD solution [facility] PreviDent Yes APPLY A Unive rs 5000 8-11 PEA SIZE ity of Sensitive 00:00: AMOUNT TO Prabhu as 1.1-5 % 00 BRUSH AND MD pste dental BRUSH FOR And erso paste 2 MINUTES n TWICE [facility] RINSING WELL AFTER USE. Prev Yes APPLY A Unive rs 5000 8-11 PEA SIZE ity of Sensitive 00:00: AMOUNT TO Prabhu as 1.1-5 % 00 BRUSH AND MD pste dental BRUSH FOR And erso paste 2 MINUTES n TWICE [facility] RINSING WELL AFTER USE. Prev Yes APPLY A Unive rs 5000 8-11 PEA SIZE ity of Sensitive 00:00: AMOUNT TO Prabhu as 1.1-5 % 00 BRUSH AND MD pste dental BRUSH FOR And erso paste 2 MINUTES n TWICE [facility] RINSING WELL AFTER USE. Prev Yes APPLY A Unive rs 5000 8-11 PEA SIZE ity of Sensitive 00:00: AMOUNT TO Prabhu as 1.1-5 % 00 BRUSH AND MD pste dental BRUSH FOR And erso paste 2 MINUTES n TWICE [facility] RINSING WELL AFTER USE. Topamax 25 Yes 50 mg = 2 Me moria mg oral 6-24 tab, PO, l tablet 17:17: Bedtime, # Ivory nn 00 60 tab, 3 Refill(s), Pharmacy: [facility] #[id number], 162.56, cm, 03/08/22 11:53:00 CDT, Height, 76.818, kg, 03/08/22 11:53:00 CDT, Weight Topamax 25 2021-0 Yes 50 mg = 2 Me moria mg oral 6-24 tab, PO, l tablet 17:17: Bedtime, # Ivory nn 00 60 tab, 3 Refill(s), Pharmacy: [facility] #[id number], 162.56, cm, 03/08/22 11:53:00 CDT, Height, 76.818, kg, 03/08/22 11:53:00 CDT, Weight Topamax 25 2021-0 Yes 50 mg = 2 Me moria mg oral 6-24 tab, PO, l tablet 17:17: Bedtime, # Ivory nn 00 60 tab, 3 Refill(s), Pharmacy: [facility] [id number], 162.56, cm, 03/08/22 11:53:00 CDT, Height, 76.818, kg, 03/08/22 11:53:00 CDT, Weight Topamax 25 2021-0 Yes 50 mg = 2 Me moria mg oral 6-24 tab, PO, l tablet 17:17: Bedtime, # Ivory nn 00 60 tab, 3 Refill(s), Pharmacy: [facility] #[id number], 162.56, cm, 03/08/22 11:53:00 CDT, Height, 76.818, kg, 03/08/22 11:53:00 CDT, Weight Topamax 25 2021-0 Yes 50 mg = 2 Me moria mg oral 6-24 tab, PO, l tablet 17:17: Bedtime, # Ivory nn 00 60 tab, 3 Refill(s), Pharmacy: [facility] #[id number], 162.56, cm, 03/08/22 11:53:00 CDT, Height, 76.818, kg, 03/08/22 11:53:00 CDT, Weight Topamax 25 2021-0 Yes 50 mg = 2 Me moria mg oral 6-24 tab, PO, l tablet 17:17: Bedtime, # Ivory nn 00 60 tab, 3 Refill(s), Pharmacy: [facility] #[id number], 162.56, cm, 03/08/22 11:53:00 CDT, Height, 76.818, kg, 03/08/22 11:53:00 CDT, Weight Topamax 25 2021-0 Yes 50 mg = 2 Me moria mg oral 6-24 tab, PO, l tablet 17:17: Bedtime, # Ivory nn 00 60 tab, 3 Refill(s), Pharmacy: [facility] #[id number], 162.56, cm, 03/08/22 11:53:00 CDT, Height, 76.818, kg, 03/08/22 11:53:00 CDT, Weight Topamax 25 2021-0 Yes 50 mg = 2 Me moria mg oral 6-24 tab, PO, l tablet 17:17: Bedtime, # Ivory nn 00 60 tab, 3 Refill(s), Pharmacy: [facility] #[id number], 162.56, cm, 03/08/22 11:53:00 CDT, Height, 76.818, kg, 03/08/22 11:53:00 CDT, Weight Topamax 25 2021-0 Yes 50 mg = 2 Me moria mg oral 6-24 tab, PO, l tablet 17:17: Bedtime, # Ivory nn 00 60 tab, 3 Refill(s), Pharmacy: [facility] #[id number], 162.56, cm, 03/08/22 11:53:00 CDT, Height, 76.818, kg, 03/08/22 11:53:00 CDT, Weight Topamax 25 2021-0 Yes 50 mg = 2 Me moria mg oral 6-24 tab, PO, l tablet 17:17: Bedtime, # Ivory nn 00 60 tab, 3 Refill(s), Pharmacy: [facility] [facility] #[id number], 162.56, cm, 03/08/22 11:53:00 CDT, Height, 76.818, kg, 03/08/22 11:53:00 CDT, Weight Topamax 25 2021-0 Yes 50 mg = 2 Me moria mg oral 6-24 tab, PO, l tablet 17:17: Bedtime, # Ivory nn 00 60 tab, 3 Refill(s), Pharmacy: [facility] #[id number], 162.56, cm, 03/08/22 11:53:00 CDT, Height, 76.818, kg, 03/08/22 11:53:00 CDT, Weight Topamax 25 2021-0 Yes 50 mg = 2 Me moria mg oral 6-24 tab, PO, l tablet 17:17: Bedtime, # Ivory nn 00 60 tab, 3 Refill(s), Pharmacy: [facility] #[id number], 162.56, cm, 03/08/22 11:53:00 CDT, Height, 76.818, kg, 03/08/22 11:53:00 CDT, Weight Topamax 25 2021-0 Yes 50 mg = 2 Me moria mg oral 6-24 tab, PO, l tablet 17:17: Bedtime, # Ivory nn 00 60 tab, 3 Refill(s), Pharmacy: [facility] #[id number], 162.56, cm, 03/08/22 11:53:00 CDT, Height, 76.818, kg, 03/08/22 11:53:00 CDT, Weight Topamax 25 2021-0 Yes 50 mg = 2 Me moria mg oral 6-24 tab, PO, l tablet 17:17: Bedtime, # Ivory nn 00 60 tab, 3 Refill(s), Pharmacy: [facility] #[id number], 162.56, cm, 03/08/22 11:53:00 CDT, Height, 76.818, kg, 03/08/22 11:53:00 CDT, Weight Topamax 25 2021-0 Yes 50 mg = 2 Me moria mg oral 6-24 tab, PO, l tablet 17:17: Bedtime, # Ivory nn 00 60 tab, 3 Refill(s), Pharmacy: [facility] #[id number], 162.56, cm, 03/08/22 11:53:00 CDT, Height, 76.818, kg, 03/08/22 11:53:00 CDT, Weight Topamax 25 2021-0 Yes 50 mg = 2 Me moria mg oral 6-24 tab, PO, l tablet 17:17: Bedtime, # Ivory nn 00 60 tab, 3 Refill(s), Pharmacy: [facility] #[id number], 162.56, cm, 03/08/22 11:53:00 CDT, Height, 76.818, kg, 03/08/22 11:53:00 CDT, Weight Topamax 25 2021-0 Yes 50 mg = 2 Me moria mg oral 6-24 tab, PO, l tablet 17:17: Bedtime, # Ivory nn 00 60 tab, 3 Refill(s), [id number], 162.56, cm, 03/08/22 11:53:00 CDT, Height, 76.818, kg, 03/08/22 11:53:00 CDT, Weight Topamax 25 2021-0 Yes 50 mg = 2 Me moria mg oral 6-24 tab, PO, l tablet 17:17: Bedtime, # Ivory nn 00 60 tab, 3 Refill(s), [id number], 162.56, cm, 03/08/22 11:53:00 CDT, Height, 76.818, kg, 03/08/22 11:53:00 CDT, Weight Topamax 25 2021-0 Yes 50 mg = 2 Me moria mg oral 6-24 tab, PO, l tablet 17:17: Bedtime, # Ivory nn 00 60 tab, 3 Refill(s), [id number], 162.56, cm, 03/08/22 11:53:00 CDT, Height, 76.818, kg, 03/08/22 11:53:00 CDT, Weight Topamax 25 2-0 Yes 50 mg = 2 Me moria mg oral 6-24 tab, PO, l tablet 17:17: Bedtime, # Ivory nn 00 60 tab, 3 Refill(s), [facility][id number], 162.56, cm, 03/08/22 11:53:00 CDT, Height, 76.818, kg, 03/08/22 11:53:00 CDT, Weight Topamax 25 2022-0 Yes 50 mg = 2 Me moria mg oral 6-24 tab, PO, l tablet 17:17: Bedtime, # Ivory nn 00 60 tab, 3 Refill(s), Pharmacy: [facility] #[id number], 162.56, cm, 03/08/22 11:53:00 CDT, Height, 76.818, kg, 03/08/22 11:53:00 CDT, Weight Topamax 25 2-0 Yes 50 mg = 2 Me moria mg oral 6-24 tab, PO, l tablet 17:17: Bedtime, # Ivory nn 00 60 tab, 3 Refill(s), Pharmacy: [facility] #[id number], 162.56, cm, 03/08/22 11:53:00 CDT, Height, 76.818, kg, 03/08/22 11:53:00 CDT, Weight Topamax 25 2-0 Yes 25 mg = 1 Me moria mg oral 5-20 tab, PO, l tablet 17:11: Bedtime, # Ivory nn 00 30 tab, 3 Refill(s), Pharmacy: [facility] #[id number], 162.56, cm, 02/01/22 11:34:00 CDT, Height, 76.591, kg, 02/01/22 11:34:00 CDT, Weight Topamax 25 2022-0 Yes 25 mg = 1 Me moria mg oral 5-20 tab, PO, l tablet 17:11: Bedtime, # Ivory nn 00 30 tab, 3 Refill(s), Pharmacy: [facility] #[id number], 162.56, cm, 02/01/22 11:34:00 CDT, Height, 76.591, kg, 02/01/22 11:34:00 CDT, Weight Topamax 25 2022-0 Yes 25 mg = 1 Me moria mg oral 5-20 tab, PO, l tablet 17:11: Bedtime, # Ivory nn 00 30 tab, 3 Refill(s), Pharmacy: [facility] #[id number], 162.56, cm, 02/01/22 11:34:00 CDT, Height, 76.591, kg, 02/01/22 11:34:00 CDT, Weight Topamax 25 2022-0 Yes 25 mg = 1 Me moria mg oral 5-20 tab, PO, l tablet 17:11: Bedtime, # Ivory nn 00 30 tab, 3 Refill(s), Pharmacy: [facility] #[id number], 162.56, cm, 02/01/22 11:34:00 CDT, Height, 76.591, kg, 02/01/22 11:34:00 CDT, Weight Topamax 25 2-0 Yes 25 mg = 1 Me moria mg oral 5-20 tab, PO, l tablet 17:11: Bedtime, # Ivory nn 00 30 tab, 3 Refill(s), Pharmacy: [facility] #[id number], 162.56, cm, 02/01/22 11:34:00 CDT, Height, 76.591, kg, 02/01/22 11:34:00 CDT, Weight Topamax 25 2-0 Yes 25 mg = 1 Me moria mg oral 5-20 tab, PO, l tablet 17:11: Bedtime, # Ivory nn 00 30 tab, 3 Refill(s), Pharmacy: [facility] #[id number], 162.56, cm, 02/01/22 11:34:00 CDT, Height, 76.591, kg, 02/01/22 11:34:00 CDT, Weight Topamax 25 2022-0 Yes 25 mg = 1 Me moria mg oral 5-20 tab, PO, l tablet 17:11: Bedtime, # Ivory nn 00 30 tab, 3 Refill(s), Pharmacy: [facility] #[id number], 162.56, cm, 02/01/22 11:34:00 CDT, Height, 76.591, kg, 02/01/22 11:34:00 CDT, Weight Topamax 25 2022-0 Yes 25 mg = 1 Me moria mg oral 5-20 tab, PO, l tablet 17:11: Bedtime, # Ivory nn 00 30 tab, 3 Refill(s), Pharmacy: [facility] #[id number], 162.56, cm, 02/01/22 11:34:00 CDT, Height, 76.591, kg, 02/01/22 11:34:00 CDT, Weight Topamax 25 2022-0 Yes 25 mg = 1 Me moria mg oral 5-20 tab, PO, l tablet 17:11: Bedtime, # Ivory nn 00 30 tab, 3 Refill(s), Pharmacy: [facility] #[id number], 162.56, cm, 02/01/22 11:34:00 CDT, Height, 76.591, kg, 02/01/22 11:34:00 CDT, Weight Topamax 25 2022-0 Yes 25 mg = 1 Me moria mg oral 5-20 tab, PO, l tablet 17:11: Bedtime, # Ivory nn 00 30 tab, 3 Refill(s), Pharmacy: [facility] #[id number], 162.56, cm, 02/01/22 11:34:00 CDT, Height, 76.591, kg, 02/01/22 11:34:00 CDT, Weight Topamax 25 2022-0 Yes 25 mg = 1 Me moria mg oral 5-20 tab, PO, l tablet 17:11: Bedtime, # Ivory nn 00 30 tab, 3 Refill(s), Pharmacy: [facility] #[id number], 162.56, cm, 02/01/22 11:34:00 CDT, Height, 76.591, kg, 02/01/22 11:34:00 CDT, Weight Topamax 25 2022-0 Yes 25 mg = 1 Me moria mg oral 5-20 tab, PO, l tablet 17:11: Bedtime, # Ivory nn 00 30 tab, 3 Refill(s), Pharmacy: [facility] #[id number], 162.56, cm, 02/01/22 11:34:00 CDT, Height, 76.591, kg, 02/01/22 11:34:00 CDT, Weight Topamax 25 2022-0 Yes 25 mg = 1 Me moria mg oral 5-20 tab, PO, l tablet 17:11: Bedtime, # Ivory nn 00 30 tab, 3 Refill(s), Pharmacy: [facility] #[id number], 162.56, cm, 02/01/22 11:34:00 CDT, Height, 76.591, kg, 02/01/22 11:34:00 CDT, Weight Topamax 25 2022-0 Yes 25 mg = 1 Me moria mg oral 5-20 tab, PO, l tablet 17:11: Bedtime, # Ivory nn 00 30 tab, 3 Refill(s), Pharmacy: [facility] #[id number], 162.56, cm, 02/01/22 11:34:00 CDT, Height, 76.591, kg, 02/01/22 11:34:00 CDT, Weight Topamax 25 2022-0 Yes 25 mg = 1 Me moria mg oral 5-20 tab, PO, l tablet 17:11: Bedtime, # Ivory nn 00 30 tab, 3 Refill(s), Pharmacy: [facility] [id number], 162.56, cm, 02/01/22 11:34:00 CDT, Height, 76.591, kg, 02/01/22 11:34:00 CDT, Weight Topamax 25 2-0 Yes 25 mg = 1 Me moria mg oral 5-20 tab, PO, l tablet 17:11: Bedtime, # Ivory nn 00 30 tab, 3 Refill(s), Pharmacy: [facility] #[id number], 162.56, cm, 02/01/22 11:34:00 CDT, Height, 76.591, kg, 02/01/22 11:34:00 CDT, Weight Topamax 25 2022-0 Yes 25 mg = 1 Me moria mg oral 5-20 tab, PO, l tablet 17:11: Bedtime, # Ivory nn 00 30 tab, 3 Refill(s), Pharmacy: [facility] #[id number], 162.56, cm, 02/01/22 11:34:00 CDT, Height, 76.591, kg, 02/01/22 11:34:00 CDT, Weight Topamax 25 2022-0 Yes 25 mg = 1 Me moria mg oral 5-20 tab, PO, l tablet 17:11: Bedtime, # Ivory nn 00 30 tab, 3 Refill(s), Pharmacy: [facility] #[id number], 162.56, cm, 02/01/22 11:34:00 CDT, Height, 76.591, kg, 02/01/22 11:34:00 CDT, Weight Topamax 25 2021-0 Yes 25 mg = 1 Me moria mg oral 5-20 tab, PO, l tablet 17:11: Bedtime, # Ivory nn 00 30 tab, 3 Refill(s), Pharmacy: [facility] #[id number], 162.56, cm, 02/01/22 11:34:00 CDT, Height, 76.591, kg, 02/01/22 11:34:00 CDT, Weight Topamax 25 2021-0 Yes 25 mg = 1 Me moria mg oral 5-20 tab, PO, l tablet 17:11: Bedtime, # Ivory nn 00 30 tab, 3 Refill(s), Pharmacy: [facility] #[id number], 162.56, cm, 02/01/22 11:34:00 CDT, Height, 76.591, kg, 02/01/22 11:34:00 CDT, Weight Topamax 25 2021-0 Yes 25 mg = 1 Me moria mg oral 5-20 tab, PO, l tablet 17:11: Bedtime, # Ivory nn 00 30 tab, 3 Refill(s), Pharmacy: [facility] #[id number], 162.56, cm, 02/01/22 11:34:00 CDT, Height, 76.591, kg, 02/01/22 11:34:00 CDT, Weight Topamax 25 2021-0 Yes 25 mg = 1 Me moria mg oral 5-20 tab, PO, l tablet 17:11: Bedtime, # Ivory nn 00 30 tab, 3 Refill(s), Pharmacy: [facility] #[id number], 162.56, cm, 02/01/22 11:34:00 CDT, Height, 76.591, kg, 02/01/22 11:34:00 CDT, Weight levothyroxi Yes TAKE 1 William loy ne 75 mcg 5-20 TABLET BY l (0.075 mg) 16:49: MOUTH Ricardo n oral tablet 00 EVERY DAY IN THE MORNING ON AN EMPTY STOMACH levothyroxi Yes TAKE 1 William loy ne 75 mcg 5-20 TABLET BY l (0.075 mg) 16:49: MOUTH Ricardo n oral tablet 00 EVERY DAY IN THE MORNING ON AN EMPTY STOMACH levothyroxi Yes TAKE 1 William loy ne 75 mcg 5-20 TABLET BY l (0.075 mg) 16:49: MOUTH Ricardo n oral tablet 00 EVERY DAY IN THE MORNING ON AN EMPTY STOMACH levothyroxi Yes TAKE 1 William loy ne 75 mcg 5-20 TABLET BY l (0.075 mg) 16:49: MOUTH Ricardo n oral tablet 00 EVERY DAY IN THE MORNING ON AN EMPTY STOMACH levothyroxi Yes TAKE 1 William loy ne 75 mcg 5-20 TABLET BY l (0.075 mg) 16:49: MOUTH Ricardo n oral tablet 00 EVERY DAY IN THE MORNING ON AN EMPTY STOMACH levothyroxi Yes TAKE 1 William loy ne 75 mcg 5-20 TABLET BY l (0.075 mg) 16:49: MOUTH Ricardo n oral tablet 00 EVERY DAY IN THE MORNING ON AN EMPTY STOMACH levothyroxi Yes TAKE 1 William loy ne 75 mcg 5-20 TABLET BY l (0.075 mg) 16:49: MOUTH Ricardo n oral tablet 00 EVERY DAY IN THE MORNING ON AN EMPTY STOMACH levothyroxi Yes TAKE 1 William loy ne 75 mcg 5-20 TABLET BY l (0.075 mg) 16:49: MOUTH Ricardo n oral tablet 00 EVERY DAY IN THE MORNING ON AN EMPTY STOMACH levothyroxi Yes TAKE 1 William loy ne 75 mcg 5-20 TABLET BY l (0.075 mg) 16:49: MOUTH Ricardo n oral tablet 00 EVERY DAY IN THE MORNING ON AN EMPTY STOMACH levothyroxi Yes TAKE 1 William loy ne 75 mcg 5-20 TABLET BY l (0.075 mg) 16:49: MOUTH Ricardo n oral tablet 00 EVERY DAY IN THE MORNING ON AN EMPTY STOMACH levothyroxi 0 Yes TAKE 1 William loy ne 75 mcg 5-20 TABLET BY l (0.075 mg) 16:49: MOUTH Ricardo n oral tablet 00 EVERY DAY IN THE MORNING ON AN EMPTY STOMACH levothyroxi 0 Yes TAKE 1 William loy ne 75 mcg 5-20 TABLET BY l (0.075 mg) 16:49: MOUTH Ricardo n oral tablet 00 EVERY DAY IN THE MORNING ON AN EMPTY STOMACH levothyroxi 0 Yes TAKE 1 William loy ne 75 mcg 5-20 TABLET BY l (0.075 mg) 16:49: MOUTH Ricardo n oral tablet 00 EVERY DAY IN THE MORNING ON AN EMPTY STOMACH levothyroxi 0 Yes TAKE 1 William loy ne 75 mcg 5-20 TABLET BY l (0.075 mg) 16:49: MOUTH Ricardo n oral tablet 00 EVERY DAY IN THE MORNING ON AN EMPTY STOMACH levothyroxi 0 Yes TAKE 1 William loy ne 75 mcg 5-20 TABLET BY l (0.075 mg) 16:49: MOUTH Ricardo n oral tablet 00 EVERY DAY IN THE MORNING ON AN EMPTY STOMACH levothyroxi Yes TAKE 1 William loy ne 75 mcg 5-20 TABLET BY l (0.075 mg) 16:49: MOUTH Ricardo n oral tablet 00 EVERY DAY IN THE MORNING ON AN EMPTY STOMACH levothyroxi 0 Yes TAKE 1 William loy ne 75 mcg 5-20 TABLET BY l (0.075 mg) 16:49: MOUTH Ricardo n oral tablet 00 EVERY DAY IN THE MORNING ON AN EMPTY STOMACH levothyroxi 0 Yes TAKE 1 William loy ne 75 mcg 5-20 TABLET BY l (0.075 mg) 16:49: MOUTH Ricardo n oral tablet 00 EVERY DAY IN THE MORNING ON AN EMPTY STOMACH levothyroxi 0 Yes TAKE 1 William loy ne 75 mcg 5-20 TABLET BY l (0.075 mg) 16:49: MOUTH Ricardo n oral tablet 00 EVERY DAY IN THE MORNING ON AN EMPTY STOMACH levothyroxi 0 Yes TAKE 1 William loy ne 75 mcg 5-20 TABLET BY l (0.075 mg) 16:49: MOUTH Ricardo n oral tablet 00 EVERY DAY IN THE MORNING ON AN EMPTY STOMACH levothyroxi 0 Yes TAKE 1 William loy ne 75 mcg 5-20 TABLET BY l (0.075 mg) 16:49: MOUTH Ricardo n oral tablet 00 EVERY DAY IN THE MORNING ON AN EMPTY STOMACH levothyroxi 0 Yes TAKE 1 William loy ne 75 mcg 5-20 TABLET BY l (0.075 mg) 16:49: MOUTH Ricardo n oral tablet 00 EVERY DAY IN THE MORNING ON AN EMPTY STOMACH Atarax 50 0 Yes TAKE 1 Memori a mg oral tab 5-20 TABLET BY l 16:35: MOUTH [place] 00 EVERY DAY NEEDED Atarax 50 0 Yes TAKE 1 Memori a mg oral tab 5-20 TABLET BY l 16:35: MOUTH [place] 00 EVERY DAY NEEDED Atarax 50 0 Yes TAKE 1 Memori a mg oral tab 5-20 TABLET BY l 16:35: MOUTH Avinash 00 EVERY DAY NEEDED Atarax 50 0 Yes TAKE 1 Memori a mg oral tab 5-20 TABLET BY l 16:35: MOUTH [place] 00 EVERY DAY NEEDED Atarax 50 0 Yes TAKE 1 Memori a mg oral tab 5-20 TABLET BY l 16:35: MOUTH [place] 00 EVERY DAY NEEDED Atarax 50 0 Yes TAKE 1 Memori a mg oral tab 5-20 TABLET BY l 16:35: MOUTH Avinash 00 EVERY DAY NEEDED Atarax 50 2021-0 Yes TAKE 1 Mem[facility] a mg oral tab 5-20 TABLET BY l 16:35: MOUTH Avinash 00 EVERY DAY NEEDED Atarax 50 0 Yes TAKE 1 Memori a mg oral tab 5-20 TABLET BY l 16:35: MOUTH [place] 00 EVERY DAY NEEDED Atarax 50 2021-0 Yes TAKE 1 Memori a mg oral tab 5-20 TABLET BY l 16:35: MOUTH Avinash 00 EVERY DAY NEEDED Atarax 50 2021-0 Yes TAKE 1 Memori a mg oral tab 5-20 TABLET BY l 16:35: MOUTH [place] 00 EVERY DAY NEEDED Atarax 50 2021-0 Yes TAKE 1 Memori a mg oral tab 5-20 TABLET BY l 16:35: MOUTH [place] 00 EVERY DAY NEEDED Atarax 50 2021-0 Yes TAKE 1 Memori a mg oral tab 5-20 TABLET BY l 16:35: MOUTH Avinash 00 EVERY DAY NEEDED Atarax 50 2021-0 Yes TAKE 1 Memori a mg oral tab 5-20 TABLET BY l 16:35: MOUTH [place] 00 EVERY DAY NEEDED Atarax 50 2021-0 Yes TAKE 1 Memori a mg oral tab 5-20 TABLET BY l 16:35: MOUTH Avinash 00 EVERY DAY NEEDED Atarax 50 2021-0 Yes TAKE 1 Memori a mg oral tab 5-20 TABLET BY l 16:35: MOUTH Avinash 00 EVERY DAY NEEDED Atarax 50 2021-0 Yes TAKE 1 Memori a mg oral tab 5-20 TABLET BY l 16:35: MOUTH [place] 00 EVERY DAY NEEDED Atarax 50 2021-0 Yes TAKE 1 Memori a mg oral tab 5-20 TABLET BY l 16:35: MOUTH [place] 00 EVERY DAY NEEDED Atarax 50 2021-0 Yes TAKE 1 Memori a mg oral tab 5-20 TABLET BY l 16:35: MOUTH Avinash 00 EVERY DAY NEEDED Atarax 50 2021-0 Yes TAKE 1 Memori a mg oral tab 5-20 TABLET BY l 16:35: MOUTH [place] 00 EVERY DAY NEEDED Atarax 50 2021-0 Yes TAKE 1 Memori a mg oral tab 5-20 TABLET BY l 16:35: MOUTH [place] 00 EVERY DAY NEEDED Atarax 50 2021-0 Yes TAKE 1 Memori a mg oral tab 5-20 TABLET BY l 16:35: MOUTH [place] 00 EVERY DAY NEEDED Atarax 50 2021-0 Yes TAKE 1 Memori a mg oral tab 5-20 TABLET BY l 16:35: MOUTH Avinash 00 EVERY DAY NEEDED SUMAtriptan 0 Yes = 1 spray, [facility] 20 mg/inh 5-20 NASAL, l nasal spray 16:34: ONCE, PRN [place] 00 for migraine headache, # 1 ea, 0 Refill(s) SUMAtriptan 0 Yes = 1 spray, [facility] 20 mg/inh 5-20 NASAL, l nasal spray 16:34: ONCE, PRN [place] 00 for migraine headache, # 1 ea, 0 Refill(s) SUMAtriptan 0 Yes = 1 spray, [facility] 20 mg/inh 5-20 NASAL, l nasal spray 16:34: ONCE, PRN [place] 00 for migraine headache, # 1 ea, 0 Refill(s) SUMAtriptan 2-0 Yes = 1 spray, [facility] 20 mg/inh 5-20 NASAL, l nasal spray 16:34: ONCE, PRN [place] 00 for migraine headache, # 1 ea, 0 Refill(s) SUMAtriptan 2021-0 Yes = 1 spray, [facility] 20 mg/inh 5-20 NASAL, l nasal spray 16:34: ONCE, PRN [place] 00 for migraine headache, # 1 ea, 0 Refill(s) SUMAtriptan 2021-0 Yes = 1 spray, [facility] 20 mg/inh 5-20 NASAL, l nasal spray 16:34: ONCE, PRN [place] 00 for migraine headache, # 1 ea, 0 Refill(s) SUMAtriptan 2021-0 Yes = 1 spray, [facility] 20 mg/inh 5-20 NASAL, l nasal spray 16:34: ONCE, PRN [place] 00 for migraine headache, # 1 ea, 0 Refill(s) SUMAtriptan 2021-0 Yes = 1 spray, [facility] 20 mg/inh 5-20 NASAL, l nasal spray 16:34: ONCE, PRN [place] 00 for migraine headache, # 1 ea, 0 Refill(s) SUMAtriptan 2021-0 Yes = 1 spray, [facility] 20 mg/inh 5-20 NASAL, l nasal spray 16:34: ONCE, PRN [place] 00 for migraine headache, # 1 ea, 0 Refill(s) SUMAtriptan 2021-0 Yes = 1 spray, [facility] 20 mg/inh 5-20 NASAL, l nasal spray 16:34: ONCE, PRN [place] 00 for migraine headache, # 1 ea, 0 Refill(s) SUMAtriptan 2-0 Yes = 1 spray, [facility] 20 mg/inh 5-20 NASAL, l nasal spray 16:34: ONCE, PRN [place] 00 for migraine headache, # 1 ea, 0 Refill(s) SUMAtriptan 2-0 Yes = 1 spray, [facility] 20 mg/inh 5-20 NASAL, l nasal spray 16:34: ONCE, PRN [place] 00 for migraine headache, # 1 ea, 0 Refill(s) SUMAtriptan 2022-0 Yes = 1 spray, [facility] 20 mg/inh 5-20 NASAL, l nasal spray 16:34: ONCE, PRN [place] 00 for migraine headache, # 1 ea, 0 Refill(s) SUMAtriptan 2021-0 Yes = 1 spray, [facility] 20 mg/inh 5-20 NASAL, l nasal spray 16:34: ONCE, PRN [place] 00 for migraine headache, # 1 ea, 0 Refill(s) SUMAtriptan 2021-0 Yes = 1 spray, [facility] 20 mg/inh 5-20 NASAL, l nasal spray 16:34: ONCE, PRN [place] 00 for migraine headache, # 1 ea, 0 Refill(s) SUMAtriptan 2021-0 Yes = 1 spray, [facility] 20 mg/inh 5-20 NASAL, l nasal spray 16:34: ONCE, PRN [place] 00 for migraine headache, # 1 ea, 0 Refill(s) SUMAtriptan 2021-0 Yes = 1 spray, [facility] 20 mg/inh 5-20 NASAL, l nasal spray 16:34: ONCE, PRN [place] 00 for migraine headache, # 1 ea, 0 Refill(s) SUMAtriptan 2021-0 Yes = 1 spray, [facility] 20 mg/inh 5-20 NASAL, l nasal spray 16:34: ONCE, PRN [place] 00 for migraine headache, # 1 ea, 0 Refill(s) SUMAtriptan 2-0 Yes = 1 spray, [facility] 20 mg/inh 5-20 NASAL, l nasal spray 16:34: ONCE, PRN [place] 00 for migraine headache, # 1 ea, 0 Refill(s) SUMAtriptan 2021-0 Yes = 1 spray, [facility] 20 mg/inh 5-20 NASAL, l nasal spray 16:34: ONCE, PRN [place] 00 for migraine headache, # 1 ea, 0 Refill(s) SUMAtriptan 2-0 Yes = 1 spray, [facility] 20 mg/inh 5-20 NASAL, l nasal spray 16:34: ONCE, PRN [place] 00 for migraine headache, # 1 ea, 0 Refill(s) SUMAtriptan 2-0 Yes = 1 spray, [facility] 20 mg/inh 5-20 NASAL, l nasal spray 16:34: ONCE, PRN [place] 00 for migraine headache, # 1 ea, 0 Refill(s) ciprofloxac 2021- No Cystitis 500mg Take 1 [facility] in HCl 01-25-23 tablet ity of (Cipro) 500 00:00: 00:00 (500 mg) [place] mg tablet 00 :00 by mouth MD twice Anderso daily. n [facility] ciprofloxac 2021- No Cystitis 500mg Take 1 [facility] in HCl 01-25-23 tablet ity of (Cipro) 500 00:00: 00:00 (500 mg) [place] mg tablet 00 :00 by mouth MD twice Anderso daily. n [facility] ciprofloxac 2021- No Cystitis 500mg Take 1 [facility] in HCl 01-2523 tablet ity of (Cipro) 500 00:00: 00:00 (500 mg) [place] mg tablet 00 :00 by mouth MD twice Anderso daily. [facility] dextroamphe Yes 30mg Take 1 Univ ers tamine-amph 1-18 tablet (30 it y of etamine 00:00: mg) by [place] (ADDERALL) 00 mouth 2 MD 30 mg (two) Anderso tablet times a n day as Cancer needed. [place] dextroamphe Yes 30mg Take 1 [facility] ers tamine-amph 1-18 tablet (30 it y of etamine 00:00: mg) by [place] (ADDERALL) 00 mouth 2 MD 30 mg (two) Anderso tablet times a n day as Cancer needed. [facility] dextroamphe Yes 30mg Take 1 Univ ers tamine-amph 1-18 tablet (30 it y of etamine 00:00: mg) by [place] (ADDERALL) 00 mouth 2 MD 30 mg (two) Anderso tablet times a n day as Cancer needed. [facility] dextroamphe Yes 30mg Take 1 Univ ers tamine-amph 1-18 tablet (30 it y of etamine 00:00: mg) by [place] (ADDERALL) 00 mouth 2 MD 30 mg (two) Anderso tablet times a n day as Cancer needed. [facility] ergocalcife 2021- No 1{capsu Take 1 [facility] rol 10-02 le} capsule by ity of (DRISDOL) 00:00: 00:00 mouth once [place] 50,000 00 :00 a week. MD roque Anderso capsule n [facility] levothyroxi 2021- No 1{tbl} Take 1 U nivers ne 10-02 tablet by ity of (SYNTHROID, 00:00: 00:00 [place] LEVOTHROID[place] 00 :00 daily. 75 mcg Anderso tablet n [facility] ergocalcife 2021- No 1{capsu Take 1 [facility] rol 10-02 le} capsule by ity of (DRISDOL) 00:00: 00:00 mouth once [place] 50,000 00 :00 a week. MD roque Anderso capsule n [facility] levothyroxi 2021- No 1{tbl} Take 1 U nivers ne 10-02 tablet by ity of (SYNTHROID, 00:00: 00:00 [place] LEVOTHROID) 00 :00 daily. 75 mcg Anderso tablet n [facility] amoxicillin 2020- No [id number] 1{tbl} Take 1 Univers -clavulanat 10-23 tablet by it y of e 00:00: 05:59 mouth 2 [place] (AUGMENTIN) 00 :00 (two) Medical 875-125 mg times Branch per tablet daily for 10 days. cetirizine- 2020- No [id number] 1{tbl} Take 1 Univers psuedoephed 10-23 tablet by it y of rine 00:00: 05:59 mouth 2 [place] (ZYRTEC-D) 00 :00 (two) Medical 5-120 mg times Branch per tablet daily for 10 days. dextroamphe Yes 30mg Take 30 mg Univers tamine-amph 1-13 by mouth 2 it y of etamine 30 00:00: (two) [place] mg tablet 00 times Medical daily. Branch Melatonin 2019-09 No Notes: Memori a 10-07 (Same as: l 04:42: Melatonin) Avinash 00 Melatonin 2019-09 No Notes: Memori a 1-23 (Same as: l 04:42: Melatonin) Melatonin 2019-09 No Notes: Memori a 1-23 (Same as: l 04:42: Melatonin) Melatonin 2019-09 No Notes: Memori a 1-23 (Same as: l 04:42: Melatonin) Melatonin 2019-09 No Notes: Memori a 1-23 (Same as: l 04:42: Melatonin) Melatonin 2019-09 No Notes: Memori a 1-23 (Same as: l 04:42: Melatonin) Melatonin 2019-09 No Notes: Memori a 1-23 (Same as: l 04:42: Melatonin) Melatonin 2019-09 No Notes: Memori a 1-23 (Same as: l 04:42: Melatonin) Melatonin 2019-09 No Notes: Memori a 1-23 (Same as: l 04:42: Melatonin) Melatonin 2019-09 No Notes: Memori a 1-23 (Same as: l 04:42: Melatonin) Melatonin 2019-09 No Notes: Memori a 1-23 (Same as: l 04:42: Melatonin) Melatonin 2019-09 No Notes: Memori a 1-23 (Same as: l 04:42: Melatonin) Melatonin 2019-09 No Notes: Memori a 1-23 (Same as: l 04:42: Melatonin) Melatonin 2019-09 No Notes: Memori a 1-23 (Same as: l 04:42: Melatonin) Melatonin 2019-09 No Notes: Memori a 1-23 (Same as: l 04:42: Melatonin) Melatonin 2019-09 No Notes: Memori a 1-23 (Same as: l 04:42: Melatonin) Melatonin 2019-09 No Notes: Memori a 1-23 (Same as: l 04:42: Melatonin) Melatonin 2019-09 No Notes: Memori a 1-23 (Same as: l 04:42: Melatonin) Melatonin 2019-09 No Notes: Memori a 1-23 (Same as: l 04:42: Melatonin) Melatonin 2019-09 No Notes: Memori a 1-23 (Same as: l 04:42: Melatonin) Melatonin 2019-09 No Notes: Memori a 10-07 (Same as: l 04:42: Melatonin) [place] Melatonin 2019-09 No Notes: Memori a 10-07 (Same as: l 04:42: Melatonin) [place] Acetaminoph 2019-09 No Notes: Do M emoria en 325 MG / 22 not exceed l Hydrocodone 17:46: 4gm/day of [place] Bitartrate 00 acetaminop 10 MG Oral hen. (Same Tablet as: [place] [[place] 325/10) 10] Acetaminoph 2019-09 No Notes: Do M emoria en 325 MG / 22 not exceed l Hydrocodone 17:46: 4gm/day of [place] Bitartrate 00 acetaminop 10 MG Oral hen. (Same Tablet as: [place] [[place] 325/10) 10325] Acetaminoph 2019-09 No Notes: Do M emoria en 325 MG / 22 not exceed l Hydrocodone 17:46: 4gm/day of [place] Bitartrate 00 acetaminop 10 MG Oral hen. (Same Tablet as: [place] [[place] 325/10) 10325] Acetaminoph 2019-09 No Notes: Do M emoria en 325 MG / 22 not exceed l Hydrocodone 17:46: 4gm/day of [place] Bitartrate 00 acetaminop 10 MG Oral hen. (Same Tablet as: [place] [[place] 325/10) 10325] Acetaminoph 2019-09 No Notes: Do M emoria en 325 MG / 22 not exceed l Hydrocodone 17:46: 4gm/day of [place] Bitartrate 00 acetaminop 10 MG Oral hen. (Same Tablet as: [place] [[place] 325/10) 10325] Acetaminoph 2019-09 No Notes: Do M emoria en 325 MG / -22 not exceed l Hydrocodone 17:46: 4gm/day of [place] Bitartrate 00 acetaminop 10 MG Oral hen. (Same Tablet as: [place] [[place] 325/10) 10325] Acetaminoph 2019-09 No Notes: Do M emoria en 325 MG / 22 not exceed l Hydrocodone 17:46: 4gm/day of [place] Bitartrate 00 acetaminop 10 MG Oral hen. (Same Tablet as: [place] [[place] 325/10) ] Acetaminoph 2019-09 No Notes: Do M emoria en 325 MG / -22 not exceed l Hydrocodone 17:46: 4gm/day of [place] Bitartrate 00 acetaminop 10 MG Oral hen. (Same Tablet as: [place] [[place] 325/10) ] Acetaminoph 2019-09 No Notes: Do M emoria en 325 MG / 22 not exceed l Hydrocodone 17:46: 4gm/day of [place] Bitartrate 00 acetaminop 10 MG Oral hen. (Same Tablet as: [place] [[place] 325/10) ] Acetaminoph 2019-09 No Notes: Do M emoria en 325 MG / 22 not exceed l Hydrocodone 17:46: 4gm/day of [place] Bitartrate 00 acetaminop 10 MG Oral hen. (Same Tablet as: [place] [[place] 325/10) ] Acetaminoph 2019-09 No Notes: Do M emoria en 325 MG / -22 not exceed l Hydrocodone 17:46: 4gm/day of [place] Bitartrate 00 acetaminop 10 MG Oral hen. (Same Tablet as: [place] [[place] 325/10) ] Acetaminoph 2019-09 No Notes: Do M emoria en 325 MG / -22 not exceed l Hydrocodone 17:46: 4gm/day of [place] Bitartrate 00 acetaminop 10 MG Oral hen. (Same Tablet as: [place] [[place] 325/10) ] Acetaminoph 2019-09 No Notes: Do M emoria en 325 MG / -22 not exceed l Hydrocodone 17:46: 4gm/day of [place] Bitartrate 00 acetaminop 10 MG Oral hen. (Same Tablet as: [place] [[place] 325/10) ] Acetaminoph 2019-09 No Notes: Do M emoria en 325 MG / -22 not exceed l Hydrocodone 17:46: 4gm/day of [place] Bitartrate 00 acetaminop 10 MG Oral hen. (Same Tablet as: [place] [[place] 325/10) ] Acetaminoph 2019-09 No Notes: Do M emoria en 325 MG / -22 not exceed l Hydrocodone 17:46: 4gm/day of [place] Bitartrate 00 acetaminop 10 MG Oral hen. (Same Tablet as: [place] [[place] 325/10) ] Acetaminoph 2019-09 No Notes: Do M emoria en 325 MG / 22 not exceed l Hydrocodone 17:46: 4gm/day of [place] Bitartrate 00 acetaminop 10 MG Oral hen. (Same Tablet as: [place] [[place] 325/10) ] Acetaminoph 2019-09 No Notes: Do M emoria en 325 MG / 10-06 not exceed l Hydrocodone 17:46: 4gm/day of [place] Bitartrate 00 acetaminop 10 MG Oral hen. (Same Tablet as: [place] [[place] 325/10) ] Acetaminoph 2019-09 No Notes: Do M emoria en 325 MG / 10-06 not exceed l Hydrocodone 17:46: 4gm/day of [place] Bitartrate 00 acetaminop 10 MG Oral hen. (Same Tablet as: [place] [[place] 325/10) ] Acetaminoph 2019-09 No Notes: Do M emoria en 325 MG / 22 not exceed l Hydrocodone 17:46: 4gm/day of [place] Bitartrate 00 acetaminop 10 MG Oral hen. (Same Tablet as: [place] [[place] 325/10) ] Acetaminoph 2019-09 No Notes: Do M emoria en 325 MG / -22 not exceed l Hydrocodone 17:46: 4gm/day of [place] Bitartrate 00 acetaminop 10 MG Oral hen. (Same Tablet as: [place] [[place] 325/10) ] Acetaminoph 2019-09 No Notes: Do M emoria en 325 MG / -22 not exceed l Hydrocodone 17:46: 4gm/day of [place] Bitartrate 00 acetaminop 10 MG Oral hen. (Same Tablet as: [place] [[place] 325/10) ] Acetaminoph 2019-09 No Notes: Do M emoria en 325 MG / 10-06 not exceed l Hydrocodone 17:46: 4gm/day of [place] Bitartrate 00 acetaminop 10 MG Oral hen. (Same Tablet as: [place] [[place] 325/10) 10/325] Zofran 2019-09 No Notes: Memoria 10-06 (Same as: l 15:19: Zofran) Avinash 00 MEDICATION WASTE Product Size: 4 mg Product Wasted: ___ mg Zofran 2019-09 No Notes: Memoria 10-06 (Same as: l 15:19: Zofran) Avinash 00 MEDICATION WASTE Product Size: 4 mg Product Wasted: ___ mg Zofran 2019-09 No Notes: Memoria 10-06 (Same as: l 15:19: Zofran) Avinash 00 MEDICATION WASTE Product Size: 4 mg Product Wasted: ___ mg Zofran 2019-09 No Notes: [facility] 10-06 (Same as: l 15:19: Zofran) Avinash 00 MEDICATION WASTE Product Size: 4 mg Product Wasted: ___ mg Zofran 2019-09 No Notes: Memoria 10-06 (Same as: l 15:19: Zofran) Avinash 00 MEDICATION WASTE Product Size: 4 mg Product Wasted: ___ mg Zofran 2019-09 No Notes: Memoria 10-06 (Same as: l 15:19: Zofran) Avinash 00 MEDICATION WASTE Product Size: 4 mg Product Wasted: ___ mg Zofran 2019-09 No Notes: Memoria 10-06 (Same as: l 15:19: Zofran) Avinash 00 MEDICATION WASTE Product Size: 4 mg Product Wasted: ___ mg Zofran 2019-09 No Notes: [facility] 10-06 (Same as: l 15:19: Zofran) Avinash 00 MEDICATION WASTE Product Size: 4 mg Product Wasted: ___ mg Zofran 2019-09 No Notes: Memoria 10-06 (Same as: l 15:19: Zofran) Avinash 00 MEDICATION WASTE Product Size: 4 mg Product Wasted: ___ mg Zofran 2020-1 No Notes: Memoria 10-06 (Same as: l 15:19: Zofran) Avinash 00 MEDICATION WASTE Product Size: 4 mg Product Wasted: ___ mg Zofran 2020-1 No Notes: Memoria 10-06 (Same as: l 15:19: Zofran) Avinash 00 MEDICATION WASTE Product Size: 4 mg Product Wasted: ___ mg Zofran 2020-1 No Notes: Memoria 10-06 (Same as: l 15:19: Zofran) Avinash 00 MEDICATION WASTE Product Size: 4 mg Product Wasted: ___ mg Zofran 2020-1 No Notes: Memoria 10-06 (Same as: l 15:19: Zofran) Avinash 00 MEDICATION WASTE Product Size: 4 mg Product Wasted: ___ mg Zofran 2020-1 No Notes: Memoria 10-06 (Same as: l 15:19: Zofran) Avinash 00 MEDICATION WASTE Product Size: 4 mg Product Wasted: ___ mg Zofran 2020-1 No Notes: Memoria 10-06 (Same as: l 15:19: Zofran) Avinash 00 MEDICATION WASTE Product Size: 4 mg Product Wasted: ___ mg Zofran 2020-1 No Notes: Memoria 10-06 (Same as: l 15:19: Zofran) Avinash 00 MEDICATION WASTE Product Size: 4 mg Product Wasted: ___ mg Zofran 2020-1 No Notes: Memoria 10-06 (Same as: l 15:19: Zofran) Avinash 00 MEDICATION WASTE Product Size: 4 mg Product Wasted: ___ mg Zofran 2020-1 No Notes: Memoria 10-06 (Same as: l 15:19: Zofran) Avinash 00 MEDICATION WASTE Product Size: 4 mg Product Wasted: ___ mg Zofran 2020-1 No Notes: Memoria 10-06 (Same as: l 15:19: Zofran) Avinash 00 MEDICATION WASTE Product Size: 4 mg Product Wasted: ___ mg Zofran 2019- No Notes: Memoria 10-06 (Same as: l 15:19: Zofran) Avinash 00 MEDICATION WASTE Product Size: 4 mg Product Wasted: ___ mg Zofran 2019- No Notes: Memoria 10-06 (Same as: l 15:19: Zofran) Avinash 00 MEDICATION WASTE Product Size: 4 mg Product Wasted: ___ mg Zofran 2019- No Notes: Memoria 10-06 (Same as: l 15:19: Zofran) Avinash 00 MEDICATION WASTE Product Size: 4 mg Product Wasted: ___ mg Zofran 2019-09 No 4 mg, Memoria 10-06 Route: l 13:33: IVP, Drug [place] 00 form: INJ, PRN, Dosing Weight 72.727, kg, PRN as needed for nausea/vom iting, Start date: 08/06/20 7:33:00 STUNNER, Duration: 30 day, Stop date: 09/05/20 7:32:00 STUNNER Zofran 2019- No 4 mg, Memoria 10-06 Route: l 13:33: IVP, Drug [place] 00 form: INJ, PRN, Dosing Weight 72.727, kg, PRN as needed for nausea/vom iting, Start date: 08/06/20 7:33:00 STUNNER, Duration: 30 day, Stop date: 09/05/20 7:32:00 STUNNER Zofran 2019- No 4 mg, Memoria 10-06 Route: l 13:33: IVP, Drug [place] 00 form: INJ, PRN, Dosing Weight 72.727, kg, PRN as needed for nausea/vom iting, Start date: 08/06/20 7:33:00 STUNNER, Duration: 30 day, Stop date: 09/05/20 7:32:00 STUNNER Zofran 2019- No 4 mg, Memoria 10-06 Route: l 13:33: IVP, Drug [place] 00 form: INJ, PRN, Dosing Weight 72.727, kg, PRN as needed for nausea/vom iting, Start date: 08/06/20 7:33:00 STUNNER, Duration: 30 day, Stop date: 09/05/20 7:32:00 STUNNER Zofran 2020-1 No 4 mg, Memoria 1-22 Route: l 13:33: IVP, Drug [place] 00 form: INJ, PRN, Dosing Weight 72.727, kg, PRN as needed for nausea/vom iting, Start date: 08/06/20 7:33:00 STUNNER, Duration: 30 day, Stop date: 09/05/20 7:32:00 STUNNER Zofran 2020-1 No 4 mg, Memoria 1-22 Route: l 13:33: IVP, Drug [place] 00 form: INJ, PRN, Dosing Weight 72.727, kg, PRN as needed for nausea/vom iting, Start date: 08/06/20 7:33:00 STUNNER, Duration: 30 day, Stop date: 09/05/20 7:32:00 STUNNER Zofran 2020-1 No 4 mg, Memoria 1- Route: l 13:33: IVP, Drug [place] 00 form: INJ, PRN, Dosing Weight 72.727, kg, PRN as needed for nausea/vom iting, Start date: 08/06/20 7:33:00 STUNNER, Duration: 30 day, Stop date: 09/05/20 7:32:00 STUNNER Zofran 2020-1 No 4 mg, Memoria 1- Route: l 13:33: IVP, Drug [place] 00 form: INJ, PRN, Dosing Weight 72.727, kg, PRN as needed for nausea/vom iting, Start date: 08/06/20 7:33:00 STUNNER, Duration: 30 day, Stop date: 09/05/20 7:32:00 STUNNER Zofran 2020-1 No 4 mg, Memoria 1-22 Route: l 13:33: IVP, Drug [place] 00 form: INJ, PRN, Dosing Weight 72.727, kg, PRN as needed for nausea/vom iting, Start date: 08/06/20 7:33:00 STUNNER, Duration: 30 day, Stop date: 09/05/20 7:32:00 STUNNER Zofran 2020-1 No 4 mg, Memoria 1-22 Route: l 13:33: IVP, Drug [place] 00 form: INJ, PRN, Dosing Weight 72.727, kg, PRN as needed for nausea/vom iting, Start date: 08/06/20 7:33:00 STUNNER, Duration: 30 day, Stop date: 09/05/20 7:32:00 STUNNER Zofran 2020-1 No 4 mg, Memoria 10-06 Route: l 13:33: IVP, Drug [place] 00 form: INJ, PRN, Dosing Weight 72.727, kg, PRN as needed for nausea/vom iting, Start date: 08/06/20 7:33:00 STUNNER, Duration: 30 day, Stop date: 09/05/20 7:32:00 STUNNER Zofran 2020-1 No 4 mg, Memoria 10-06 Route: l 13:33: IVP, Drug [place] 00 form: INJ, PRN, Dosing Weight 72.727, kg, PRN as needed for nausea/vom iting, Start date: 08/06/20 7:33:00 STUNNER, Duration: 30 day, Stop date: 09/05/20 7:32:00 STUNNER Zofran 2020-1 No 4 mg, Memoria 10-06 Route: l 13:33: IVP, Drug [place] 00 form: INJ, PRN, Dosing Weight 72.727, kg, PRN as needed for nausea/vom iting, Start date: 08/06/20 7:33:00 STUNNER, Duration: 30 day, Stop date: 09/05/20 7:32:00 STUNNER Zofran 2020-1 No 4 mg, Memoria 10-06 Route: l 13:33: IVP, Drug [place] 00 form: INJ, PRN, Dosing Weight 72.727, kg, PRN as needed for nausea/vom iting, Start date: 08/06/20 7:33:00 STUNNER, Duration: 30 day, Stop date: 09/05/20 7:32:00 STUNNER Zofran 2020-1 No 4 mg, Memoria 10-06 Route: l 13:33: IVP, Drug [place] 00 form: INJ, PRN, Dosing Weight 72.727, kg, PRN as needed for nausea/vom iting, Start date: 08/06/20 7:33:00 STUNNER, Duration: 30 day, Stop date: 09/05/20 7:32:00 STUNNER Zofran 2020-1 No 4 mg, Memoria 1- Route: l 13:33: IVP, Drug [place] 00 form: INJ, PRN, Dosing Weight 72.727, kg, PRN as needed for nausea/vom iting, Start date: 08/06/20 7:33:00 STUNNER, Duration: 30 day, Stop date: 09/05/20 7:32:00 STUNNER Zofran 2020-1 No 4 mg, Memoria 1-22 Route: l 13:33: IVP, Drug [place] 00 form: INJ, PRN, Dosing Weight 72.727, kg, PRN as needed for nausea/vom iting, Start date: 08/06/20 7:33:00 STUNNER, Duration: 30 day, Stop date: 09/05/20 7:32:00 STUNNER Zofran 2020-1 No 4 mg, Memoria - Route: l 13:33: IVP, Drug [place] 00 form: INJ, PRN, Dosing Weight 72.727, kg, PRN as needed for nausea/vom iting, Start date: 08/06/20 7:33:00 STUNNER, Duration: 30 day, Stop date: 09/05/20 7:32:00 STUNNER Zofran 2020-1 No 4 mg, Memoria 1- Route: l 13:33: IVP, Drug [place] 00 form: INJ, PRN, Dosing Weight 72.727, kg, PRN as needed for nausea/vom iting, Start date: 08/06/20 7:33:00 STUNNER, Duration: 30 day, Stop date: 09/05/20 7:32:00 STUNNER Zofran 2020-1 No 4 mg, Memoria 1-22 Route: l 13:33: IVP, Drug [place] 00 form: INJ, PRN, Dosing Weight 72.727, kg, PRN as needed for nausea/vom iting, Start date: 08/06/20 7:33:00 STUNNER, Duration: 30 day, Stop date: 09/05/20 7:32:00 STUNNER Zofran 2020-1 No 4 mg, Memoria 1-22 Route: l 13:33: IVP, Drug [place] 00 form: INJ, PRN, Dosing Weight 72.727, kg, PRN as needed for nausea/vom iting, Start date: 08/06/20 7:33:00 STUNNER, Duration: 30 day, Stop date: 09/05/20 7:32:00 STUNNER Zofran 2019-09 No 4 mg, Memoria 10-06 Route: l 13:33: IVP, Drug [place] 00 form: INJ, PRN, Dosing Weight 72.727, kg, PRN as needed for nausea/vom iting, Start date: 08/06/20 7:33:00 STUNNER, Duration: 30 day, Stop date: 09/05/20 7:32:00 STUNNER Lovenox 2019-09 No Notes: Memoria 1-21 (Same as: l 22:00: Lovenox) Lovenox 2019-09 No Notes: Memoria 1-21 (Same as: l 22:00: Lovenox) [place]vinash 00 Lovenox 2019-09 No Notes: Memoria 1-21 (Same as: l 22:00: Lovenox) [place]vinash 00 Lovenox 2019-09 No Notes: [facility]oria 1-21 (Same as: l 22:00: Lovenox) [place] Lovenox 2019-09 No Notes: [facility] 1-21 (Same as: l 22:00: Lovenox) [place] Lovenox 2019-09 No Notes: [facility] 1-21 (Same as: l 22:00: Lovenox) [place] Lovenox 2019-09 No Notes: Memoria 1-21 (Same as: l 22:00: Lovenox) [place] Lovenox 2019-09 No Notes: Memoria 1-21 (Same as: l 22:00: Lovenox) [place] Lovenox 2019-09 No Notes: [facility]oria 1-21 (Same as: l 22:00: Lovenox) [place] Lovenox 2019-09 No Notes: [facility]oria 1-21 (Same as: l 22:00: Lovenox) [place] Lovenox 2019-09 No Notes: [facility]oria 1-21 (Same as: l 22:00: Lovenox) [place] Lovenox 2019-09 No Notes: Memoria 1-21 (Same as: l 22:00: Lovenox) [place] Lovenox 2019-09 No Notes: Memoria 1-21 (Same as: l 22:00: Lovenox) [place] Lovenox 2019-09 No Notes: Memoria 1-21 (Same as: l 22:00: Lovenox) [place] Lovenox 2019-09 No Notes: Memoria 1-21 (Same as: l 22:00: Lovenox) [place] Lovenox 2019-09 No Notes: Memoria 1-21 (Same as: l 22:00: Lovenox) [place] Lovenox 2019-09 No Notes: Memoria 1-21 (Same as: l 22:00: Lovenox) [place] Lovenox 2019-09 No Notes: Memoria 1-21 (Same as: l 22:00: Lovenox) [place] Lovenox 2019-09 No Notes: Memoria 1-21 (Same as: l 22:00: Lovenox) [place] Lovenox 2019-09 No Notes: Memoria 1-21 (Same as: l 22:00: Lovenox) [place] 00 Lovenox 2019-09 No Notes: Memoria 1-21 (Same as: l 22:00: Lovenox) [place] Lovenox 2019-09 No Notes: [facility]oria 1-21 (Same as: l 22:00: Lovenox) [place] 00 Acetaminoph 2019-09 No Notes: Do M emoria en 1-21 not exceed l 21:00: 4 gm/day. [place] 00 (Same as: Tylenol) Acetaminoph 2019-09 No Notes: Do M emoria en 1-21 not exceed l 21:00: 4 gm/day. [place] 00 (Same as: Tylenol) Acetaminoph 2019-09 No Notes: Do M emoria en 1-21 not exceed l 21:00: 4 gm/day. [place] 00 (Same as: Tylenol) Acetaminoph 2019-09 No Notes: Do M emoria en 1-21 not exceed l 21:00: 4 gm/day. [place] 00 (Same as: Tylenol) Acetaminoph 2019-09 No Notes: Do M emoria en 1-21 not exceed l 21:00: 4 gm/day. (Same as: Tylenol) Acetaminoph 2019-09 No Notes: Do M emoria en 1-21 not exceed l 21:00: 4 gm/day. (Same as: Tylenol) Acetaminoph 2019-09 No Notes: Do M emoria en 1-21 not exceed l 21:00: 4 gm/day. (Same as: Tylenol) Acetaminoph 2019-09 No Notes: Do M emoria en 1-21 not exceed l 21:00: 4 gm/day. (Same as: Tylenol) Acetaminoph 2019-09 No Notes: Do M emoria en 1-21 not exceed l 21:00: 4 gm/day. (Same as: Tylenol) Acetaminoph 2019-09 No Notes: Do M emoria en 1-21 not exceed l 21:00: 4 gm/day. (Same as: Tylenol) Acetaminoph 2019-09 No Notes: Do M emoria en 1-21 not exceed l 21:00: 4 gm/day. (Same as: Tylenol) Acetaminoph 2019-09 No Notes: Do M emoria en 1-21 not exceed l 21:00: 4 gm/day. (Same as: Tylenol) Acetaminoph 2019-09 No Notes: Do M emoria en 1-21 not exceed l 21:00: 4 gm/day. (Same as: Tylenol) Acetaminoph 2019-09 No Notes: Do M emoria en 1-21 not exceed l 21:00: 4 gm/day. (Same as: Tylenol) Acetaminoph 2019-09 No Notes: Do M emoria en 1-21 not exceed l 21:00: 4 gm/day. (Same as: Tylenol) Acetaminoph 2019-09 No Notes: Do M emoria en 1-21 not exceed l 21:00: 4 gm/day. (Same as: Tylenol) Acetaminoph 2019-09 No Notes: Do M emoria en 1-21 not exceed l 21:00: 4 gm/day. (Same as: Tylenol) Acetaminoph 2019-09 No Notes: Do M emoria en 1-21 not exceed l 21:00: 4 gm/day. (Same as: Tylenol) Acetaminoph 2019-09 No Notes: Do M emoria en 1-21 not exceed l 21:00: 4 gm/day. (Same as: Tylenol) Acetaminoph 2019-09 No Notes: Do M emoria en 1-21 not exceed l 21:00: 4 gm/day. (Same as: Tylenol) Acetaminoph 2019-09 No Notes: Do M emoria en 1-21 not exceed l 21:00: 4 gm/day. (Same as: Tylenol) Acetaminoph 2019-09 No Notes: Do M emoria en 1-21 not exceed l 21:00: 4 gm/day. (Same as: Tylenol) Tramadol 2019-09 No Notes: Not Mem oria 1-21 to exceed l 20:42: 400mg/day. (Same As: Ultram) Tramadol 2019-09 No Notes: Not Mem oria 1-21 to exceed l 20:42: 400mg/day. (Same As: Ultram) Tramadol 2019-09 No Notes: Not Mem oria 1-21 to exceed l 20:42: 400mg/day. (Same As: Ultram) Tramadol 2019-09 No Notes: Not Mem oria 1-21 to exceed l 20:42: 400mg/day. (Same As: Ultram) Tramadol 2019-09 No Notes: Not Mem oria 1-21 to exceed l 20:42: 400mg/day. (Same As: Ultram) Tramadol 2019-09 No Notes: Not Mem oria 1-21 to exceed l 20:42: 400mg/day. (Same As: Ultram) Tramadol 2019-09 No Notes: Not Mem oria 1-21 to exceed l 20:42: 400mg/day. (Same As: Ultram) Tramadol 2019-09 No Notes: Not Mem oria 1-21 to exceed l 20:42: 400mg/day. (Same As: Ultram) Tramadol 2019-09 No Notes: Not Mem oria 1-21 to exceed l 20:42: 400mg/day. [place] 00 (Same As: Ultram) Tramadol 2019-09 No Notes: Not Mem oria 1-21 to exceed l 20:42: 400mg/day. [place] 00 (Same As: Ultram) Tramadol 2019-09 No Notes: Not Mem oria 1-21 to exceed l 20:42: 400mg/day. [place] 00 (Same As: Ultram) Tramadol 2019-09 No Notes: Not Mem oria 1-21 to exceed l 20:42: 400mg/day. [place]ash 00 (Same As: Ultram) Tramadol 2019-09 No Notes: Not Mem oria 1-21 to exceed l 20:42: 400mg/day. [place]ash (Same As: Ultram) Tramadol 2019-09 No Notes: Not Mem oria 1-21 to exceed l 20:42: 400mg/day. [place] 00 (Same As: Ultram) Tramadol 2019-09 No Notes: Not Mem oria 1-21 to exceed l 20:42: 400mg/day. [place]ash 00 (Same As: Ultram) Tramadol 2019-09 No Notes: Not Mem oria 1-21 to exceed l 20:42: 400mg/day. [place] 00 (Same As: Ultram) Tramadol 2019-09 No Notes: Not Mem oria 1-21 to exceed l 20:42: 400mg/day. [place] 00 (Same As: Ultram) Tramadol 2019-09 No Notes: Not Mem oria 1-21 to exceed l 20:42: 400mg/day. [place] 00 (Same As: Ultram) Tramadol 2019-09 No Notes: Not Mem oria 1-21 to exceed l 20:42: 400mg/day. [place] 00 (Same As: Ultram) Tramadol 2019-09 No Notes: Not Mem oria 1-21 to exceed l 20:42: 400mg/day. [place] 00 (Same As: Ultram) Tramadol 2019-09 No Notes: Not Mem oria 1-21 to exceed l 20:42: 400mg/day. [place] 00 (Same As: Ultram) Tramadol 2019-09 No Notes: Not Mem oria 1-21 to exceed l 20:42: 400mg/day. [place] 00 (Same As: Ultram) Lovenox 2020-1 No 40 mg, [facility]oria 1-21 Route: l 20:00: SUB-Q, [place]vinash 00 Drug form: INJ, [id number], Dosing Weight 72.727, kg, Start date: 08/05/20 14:00:00 STUNNER, Duration: 30 day, Stop date: 09/03/20 14:00:00 STUNNER Lovenox 2020-1 No 40 mg, [facility] 1-21 Route: l 20:00: SUB-Q, Avinash 00 Drug form: INJ, [id number], Dosing Weight 72.727, kg, Start date: 08/05/20 14:00:00 STUNNER, Duration: 30 day, Stop date: 09/03/20 14:00:00 STUNNER Lovenox 2020-1 No 40 mg, [facility] 1-21 Route: l 20:00: SUB-Q, [place]vinash 00 Drug form: INJ, [id number], Dosing Weight 72.727, kg, Start date: 08/05/20 14:00:00 STUNNER, Duration: 30 day, Stop date: 09/03/20 14:00:00 STUNNER Lovenox 2020-1 No 40 mg, [facility] 1-21 Route: l 20:00: SUB-Q, [place]vinash 00 Drug form: INJ, [id number], Dosing Weight 72.727, kg, Start date: 08/05/20 14:00:00 STUNNER, Duration: 30 day, Stop date: 09/03/20 14:00:00 STUNNER Lovenox 2020-1 No 40 mg, [facility] 1-21 Route: l 20:00: SUB-Q, Avinash 00 Drug form: INJ, [id number], Dosing Weight 72.727, kg, Start date: 08/05/20 14:00:00 STUNNER, Duration: 30 day, Stop date: 09/03/20 14:00:00 STUNNER Lovenox 2020-1 No 40 mg, [facility] 1-21 Route: l 20:00: SUB-Q, [place] 00 Drug form: INJ, [id number], Dosing Weight 72.727, kg, Start date: 08/05/20 14:00:00 STUNNER, Duration: 30 day, Stop date: 09/03/20 14:00:00 STUNNER Lovenox 2020-1 No 40 mg, [facility] 1-21 Route: l 20:00: SUB-Q, Avinash 00 Drug form: INJ, [id number], Dosing Weight 72.727, kg, Start date: 08/05/20 14:00:00 STUNNER, Duration: 30 day, Stop date: 09/03/20 14:00:00 STUNNER Lovenox 2020-1 No 40 mg, [facility]oria 1-21 Route: l 20:00: SUB-Q, [place] 00 Drug form: INJ, [id number], Dosing Weight 72.727, kg, Start date: 08/05/20 14:00:00 STUNNER, Duration: 30 day, Stop date: 09/03/20 14:00:00 STUNNER Lovenox 2020-1 No 40 mg, [facility] 1-21 Route: l 20:00: SUB-Q, [place]vinash 00 Drug form: INJ, [id number], Dosing Weight 72.727, kg, Start date: 08/05/20 14:00:00 STUNNER, Duration: 30 day, Stop date: 09/03/20 14:00:00 STUNNER Lovenox 2020-1 No 40 mg, [facility] 1-21 Route: l 20:00: SUB-Q, [place]vinash 00 Drug form: INJ, [id number], Dosing Weight 72.727, kg, Start date: 08/05/20 14:00:00 STUNNER, Duration: 30 day, Stop date: 09/03/20 14:00:00 STUNNER Lovenox 2020-1 No 40 mg, [facility] 1-21 Route: l 20:00: SUB-Q, [place] 00 Drug form: INJ, [id number], Dosing Weight 72.727, kg, Start date: 08/05/20 14:00:00 STUNNER, Duration: 30 day, Stop date: 09/03/20 14:00:00 STUNNER Lovenox 2020-1 No 40 mg, [facility] 1-21 Route: l 20:00: SUB-Q, [place]vin[place] 00 Drug form: INJ, [id number], Dosing Weight 72.727, kg, Start date: 08/05/20 14:00:00 STUNNER, Duration: 30 day, Stop date: 09/03/20 14:00:00 STUNNER Lovenox 2020-1 No 40 mg, [facility] 1-21 Route: l 20:00: SUB-Q, [place] 00 Drug form: INJ, [id number], Dosing Weight 72.727, kg, Start date: 08/05/20 14:00:00 STUNNER, Duration: 30 day, Stop date: 09/03/20 14:00:00 STUNNER Lovenox 2020-1 No 40 mg, Memoria 1-21 Route: l 20:00: SUB-Q, Avinash 00 Drug form: INJ, [id number], Dosing Weight 72.727, kg, Start date: 08/05/20 14:00:00 STUNNER, Duration: 30 day, Stop date: 09/03/20 14:00:00 STUNNER Lovenox 2020-1 No 40 mg, Memoria 1-21 Route: l 20:00: SUB-Q, Avinash 00 Drug form: INJ, [id number], Dosing Weight 72.727, kg, Start date: 08/05/20 14:00:00 STUNNER, Duration: 30 day, Stop date: 09/03/20 14:00:00 STUNNER Lovenox 2020-1 No 40 mg, Memoria 1-21 Route: l 20:00: SUB-Q, Avinash 00 Drug form: INJ, [id number], Dosing Weight 72.727, kg, Start date: 08/05/20 14:00:00 STUNNER, Duration: 30 day, Stop date: 09/03/20 14:00:00 STUNNER Lovenox 2020-1 No 40 mg, Memoria 1-21 Route: l 20:00: SUB-Q, [place] 00 Drug form: INJ, [id number], Dosing Weight 72.727, kg, Start date: 08/05/20 14:00:00 STUNNER, Duration: 30 day, Stop date: 09/03/20 14:00:00 STUNNER Lovenox 2020-1 No 40 mg, Memoria 1-21 Route: l 20:00: SUB-Q, Avinash 00 Drug form: INJ, [id number], Dosing Weight 72.727, kg, Start date: 08/05/20 14:00:00 STUNNER, Duration: 30 day, Stop date: 09/03/20 14:00:00 STUNNER Lovenox 2020-1 No 40 mg, Memoria 1-21 Route: l 20:00: SUB-Q, [place] 00 Drug form: INJ, [id number], Dosing Weight 72.727, kg, Start date: 08/05/20 14:00:00 STUNNER, Duration: 30 day, Stop date: 09/03/20 14:00:00 STUNNER Lovenox 2020-1 No 40 mg, Memoria 1-21 Route: l 20:00: SUB-Q, Avinash 00 Drug form: INJ, [id number], Dosing Weight 72.727, kg, Start date: 08/05/20 14:00:00 STUNNER, Duration: 30 day, Stop date: 09/03/20 14:00:00 STUNNER Lovenox 2020-1 No 40 mg, Memoria 1-21 Route: l 20:00: SUB-Q, [place] 00 Drug form: INJ, [id number], Dosing Weight 72.727, kg, Start date: 08/05/20 14:00:00 STUNNER, Duration: 30 day, Stop date: 09/03/20 14:00:00 STUNNER Lovenox 2020-1 No 40 mg, Memoria 1-21 Route: l 20:00: SUB-Q, [place] 00 Drug form: INJ, [id number], Dosing Weight 72.727, kg, Start date: 08/05/20 14:00:00 STUNNER, Duration: 30 day, Stop date: 09/03/20 14:00:00 STUNNER Ibuprofen 2019- No Notes: Memori a 1-21 (Same as: l 19:30: Motrin) [place] 00 "Do Not Crush" Take with food. Ibuprofen 2019-09 No Notes: Memori a 1-21 (Same as: l 19:30: Motrin) Avinash 00 "Do Not Crush" Take with food. Ibuprofen 2019-09 No Notes: Memori a 1-21 (Same as: l 19:30: Motrin) [place] 00 "Do Not Crush" Take with food. Ibuprofen 2019-09 No Notes: Memori a 1-21 (Same as: l 19:30: Motrin) [place] 00 "Do Not Crush" Take with food. Ibuprofen 2019-09 No Notes: Memori a 1-21 (Same as: l 19:30: Motrin) [place]ash 00 "Do Not Crush" Take with food. Ibuprofen 2019-09 No Notes: Memori a 1-21 (Same as: l 19:30: Motrin) [place] 00 "Do Not Crush" Take with food. Ibuprofen 2019-09 No Notes: [facility] a 1-21 (Same as: l 19:30: Motrin) [place] 00 "Do Not Crush" Take with food. Ibuprofen 2019-09 No Notes: [facility] a 1-21 (Same as: l 19:30: Motrin) [place] 00 "Do Not Crush" Take with food. Ibuprofen 2019-09 No Notes: [facility] a 1-21 (Same as: l 19:30: Motrin) [place] 00 "Do Not Crush" Take with food. Ibuprofen 2019-09 No Notes: [facility] a 1-21 (Same as: l 19:30: Motrin) [place] 00 "Do Not Crush" Take with food. Ibuprofen 2019-09 No Notes: [facility] a 1-21 (Same as: l 19:30: Motrin) [place] 00 "Do Not Crush" Take with food. Ibuprofen 2019-09 No Notes: [facility] a 1-21 (Same as: l 19:30: Motrin) [place] 00 "Do Not Crush" Take with food. Ibuprofen 2019-09 No Notes: [facility] a 1-21 (Same as: l 19:30: Motrin) [place] 00 "Do Not Crush" Take with food. Ibuprofen 2019-09 No Notes: [facility] a 1-21 (Same as: l 19:30: Motrin) [place] 00 "Do Not Crush" Take with food. Ibuprofen 2019-09 No Notes: [facility] a 1-21 (Same as: l 19:30: Motrin) [place] 00 "Do Not Crush" Take with food. Ibuprofen 2019-09 No Notes: [facility] a 1-21 (Same as: l 19:30: Motrin) [place] 00 "Do Not Crush" Take with food. Ibuprofen 2019-09 No Notes: [facility] a 1-21 (Same as: l 19:30: Motrin) [place] 00 "Do Not Crush" Take with food. Ibuprofen 2019-09 No Notes: [facility] a 1-21 (Same as: l 19:30: Motrin) [place] 00 "Do Not Crush" Take with food. Ibuprofen 2019-09 No Notes: [facility] a 1-21 (Same as: l 19:30: Motrin) [place] 00 "Do Not Crush" Take with food. Ibuprofen 2019-09 No Notes: [facility] a 1-21 (Same as: l 19:30: Motrin) [place] 00 "Do Not Crush" Take with food. Ibuprofen 2019-09 No Notes: [facility] a 1-21 (Same as: l 19:30: Motrin) [place] 00 "Do Not Crush" Take with food. Ibuprofen 2019-09 No Notes: [facility] a 1-21 (Same as: l 19:30: Motrin) [place] 00 "Do Not Crush" Take with food. Amphetamine 2019-09 Yes 30 mg = 1 M emoria aspartate 1-21 tab, PO, l 7.5 MG / 19:26: Daily, 0 [place] nn Amphetamine 00 Refill(s) Sulfate 7.5 MG / Dextroamphe tamine saccharate 7.5 MG / Dextroamphe tamine Sulfate 7.5 MG Oral Tablet [Adderall] Adderall 30 2019-09 Yes 30 mg = 1 M emoria mg oral 1-21 tab, PO, l tablet 19:26: Daily, 0 [place] 00 Refill(s) Amphetamine 2019-09 Yes 30 mg = 1 M emoria aspartate 1-21 tab, PO, l 7.5 MG / 19:26: Daily, 0 [place] Amphetamine 00 Refill(s) Sulfate 7.5 MG / Dextroamphe tamine saccharate 7.5 MG / Dextroamphe tamine Sulfate 7.5 MG Oral Tablet [Adderall] Adderall 30 2019-09 Yes 30 mg = 1 M [facility] mg oral 1-21 tab, PO, l tablet 19:26: Daily, 0 [place] 00 Refill(s) Amphetamine 2019-09 Yes 30 mg = 1 M emoria aspartate 1-21 tab, PO, l 7.5 MG / 19:26: Daily, 0 [place] Amphetamine 00 Refill(s) Sulfate 7.5 MG / Dextroamphe tamine saccharate 7.5 MG / Dextroamphe tamine Sulfate 7.5 MG Oral Tablet [Adderall] Adderall 30 2019-09 Yes 30 mg = 1 M [facility] mg oral 1-21 tab, PO, l tablet 19:26: Daily, 0 [place] 00 Refill(s) Amphetamine 2019-09 Yes 30 mg = 1 M emoria aspartate 1-21 tab, PO, l 7.5 MG / 19:26: Daily, 0 [place] Amphetamine 00 Refill(s) Sulfate 7.5 MG / Dextroamphe tamine saccharate 7.5 MG / Dextroamphe tamine Sulfate 7.5 MG Oral Tablet [Adderall] Adderall 30 2019-09 Yes 30 mg = 1 M [facility] mg oral 1-21 tab, PO, l tablet 19:26: Daily, 0 [place] 00 Refill(s) Amphetamine 2019-09 Yes 30 mg = 1 M emoria aspartate 1-21 tab, PO, l 7.5 MG / 19:26: Daily, 0 [place] Amphetamine 00 Refill(s) Sulfate 7.5 MG / Dextroamphe tamine saccharate 7.5 MG / Dextroamphe tamine Sulfate 7.5 MG Oral Tablet [Adderall] Adderall 30 2019-09 Yes 30 mg = 1 M [facility] mg oral 1-21 tab, PO, l tablet 19:26: Daily, 0 [place] 00 Refill(s) Amphetamine 2019-09 Yes 30 mg = 1 M emoria aspartate 1-21 tab, PO, l 7.5 MG / 19:26: Daily, 0 [place] Amphetamine 00 Refill(s) Sulfate 7.5 MG / Dextroamphe tamine saccharate 7.5 MG / Dextroamphe tamine Sulfate 7.5 MG Oral Tablet [Adderall] Adderall 30 2019-09 Yes 30 mg = 1 M [facility] mg oral 1-21 tab, PO, l tablet 19:26: Daily, 0 [place] 00 Refill(s) Amphetamine 2019-09 Yes 30 mg = 1 M em[facility] aspartate 1-21 tab, PO, l 7.5 MG / 19:26: Daily, 0 [place] Amphetamine 00 Refill(s) Sulfate 7.5 MG / Dextroamphe tamine saccharate 7.5 MG / Dextroamphe tamine Sulfate 7.5 MG Oral Tablet [Adderall] Adderall 30 2019-09 Yes 30 mg = 1 M [facility] mg oral 1-21 tab, PO, l tablet 19:26: Daily, 0 [place] 00 Refill(s) Amphetamine 2019-09 Yes 30 mg = 1 M emoria aspartate 1-21 tab, PO, l 7.5 MG / 19:26: Daily, 0 [place] Amphetamine 00 Refill(s) Sulfate 7.5 MG / Dextroamphe tamine saccharate 7.5 MG / Dextroamphe tamine Sulfate 7.5 MG Oral Tablet [Adderall] Adderall 30 2019-09 Yes 30 mg = 1 M [facility] mg oral -21 tab, PO, l tablet 19:26: Daily, 0 [place] 00 Refill(s) Amphetamine 2019-09 Yes 30 mg = 1 M em[facility] aspartate 1-21 tab, PO, l 7.5 MG / 19:26: Daily, 0 [place] Amphetamine 00 Refill(s) Sulfate 7.5 MG / Dextroamphe tamine saccharate 7.5 MG / Dextroamphe tamine Sulfate 7.5 MG Oral Tablet [Adderall] Adderall 30 2019-09 Yes 30 mg = 1 M [facility] mg oral -21 tab, PO, l tablet 19:26: Daily, 0 [place] 00 Refill(s) Amphetamine 2019-09 Yes 30 mg = 1 M emoria aspartate 1-21 tab, PO, l 7.5 MG / 19:26: Daily, 0 [place] Amphetamine 00 Refill(s) Sulfate 7.5 MG / Dextroamphe tamine saccharate 7.5 MG / Dextroamphe tamine Sulfate 7.5 MG Oral Tablet [Adderall] Adderall 30 2019-09 Yes 30 mg = 1 M [facility] mg oral 1-21 tab, PO, l tablet 19:26: Daily, 0 [place] 00 Refill(s) Amphetamine 2019-09 Yes 30 mg = 1 M emoria aspartate 1-21 tab, PO, l 7.5 MG / 19:26: Daily, 0 [place] Amphetamine 00 Refill(s) Sulfate 7.5 MG / Dextroamphe tamine saccharate 7.5 MG / Dextroamphe tamine Sulfate 7.5 MG Oral Tablet [Adderall] Adderall 30 2019-09 Yes 30 mg = 1 M [facility] mg oral 1-21 tab, PO, l tablet 19:26: Daily, 0 [place] 00 Refill(s) Amphetamine 2019-09 Yes 30 mg = 1 M emoria aspartate 1-21 tab, PO, l 7.5 MG / 19:26: Daily, 0 [place] Amphetamine 00 Refill(s) Sulfate 7.5 MG / Dextroamphe tamine saccharate 7.5 MG / Dextroamphe tamine Sulfate 7.5 MG Oral Tablet [Adderall] Adderall 30 2019-09 Yes 30 mg = 1 M [facility] mg oral 1-21 tab, PO, l tablet 19:26: Daily, 0 [place] 00 Refill(s) Amphetamine 2019-09 Yes 30 mg = 1 M emoria aspartate 1-21 tab, PO, l 7.5 MG / 19:26: Daily, 0 [place] Amphetamine 00 Refill(s) Sulfate 7.5 MG / Dextroamphe tamine saccharate 7.5 MG / Dextroamphe tamine Sulfate 7.5 MG Oral Tablet [Adderall] Adderall 30 2019-09 Yes 30 mg = 1 M [facility] mg oral 1-21 tab, PO, l tablet 19:26: Daily, 0 [place] 00 Refill(s) Amphetamine 2019-09 Yes 30 mg = 1 M emoria aspartate 1-21 tab, PO, l 7.5 MG / 19:26: Daily, 0 [place] Amphetamine 00 Refill(s) Sulfate 7.5 MG / Dextroamphe tamine saccharate 7.5 MG / Dextroamphe tamine Sulfate 7.5 MG Oral Tablet [Adderall] Adderall 30 2019-09 Yes 30 mg = 1 M [facility] mg oral 1-21 tab, PO, l tablet 19:26: Daily, 0 [place] 00 Refill(s) Amphetamine 2019-09 Yes 30 mg = 1 M emoria aspartate 1-21 tab, PO, l 7.5 MG / 19:26: Daily, 0 [place] Amphetamine 00 Refill(s) Sulfate 7.5 MG / Dextroamphe tamine saccharate 7.5 MG / Dextroamphe tamine Sulfate 7.5 MG Oral Tablet [Adderall] Adderall 30 2019-09 Yes 30 mg = 1 M [facility] mg oral 1-21 tab, PO, l tablet 19:26: Daily, 0 [place] 00 Refill(s) Amphetamine 2019-09 Yes 30 mg = 1 M emoria aspartate 1-21 tab, PO, l 7.5 MG / 19:26: Daily, 0 [place] Amphetamine 00 Refill(s) Sulfate 7.5 MG / Dextroamphe tamine saccharate 7.5 MG / Dextroamphe tamine Sulfate 7.5 MG Oral Tablet [Adderall] Adderall 30 2019-09 Yes 30 mg = 1 M [facility] mg oral -21 tab, PO, l tablet 19:26: Daily, 0 [place] 00 Refill(s) Amphetamine 2019-09 Yes 30 mg = 1 M emoria aspartate 1-21 tab, PO, l 7.5 MG / 19:26: Daily, 0 [place] Amphetamine 00 Refill(s) Sulfate 7.5 MG / Dextroamphe tamine saccharate 7.5 MG / Dextroamphe tamine Sulfate 7.5 MG Oral Tablet [Adderall] Adderall 30 2019-09 Yes 30 mg = 1 M [facility] mg oral -21 tab, PO, l tablet 19:26: Daily, 0 [place] 00 Refill(s) Amphetamine 2019-09 Yes 30 mg = 1 M emoria aspartate 1-21 tab, PO, l 7.5 MG / 19:26: Daily, 0 [place] Amphetamine 00 Refill(s) Sulfate 7.5 MG / Dextroamphe tamine saccharate 7.5 MG / Dextroamphe tamine Sulfate 7.5 MG Oral Tablet [Adderall] Adderall 30 2019-09 Yes 30 mg = 1 M [facility] mg oral -21 tab, PO, l tablet 19:26: Daily, 0 [place] 00 Refill(s) Amphetamine 2019-09 Yes 30 mg = 1 M emoria aspartate 1-21 tab, PO, l 7.5 MG / 19:26: Daily, 0 [place] Amphetamine 00 Refill(s) Sulfate 7.5 MG / Dextroamphe tamine saccharate 7.5 MG / Dextroamphe tamine Sulfate 7.5 MG Oral Tablet [Adderall] Adderall 30 2019-09 Yes 30 mg = 1 M [facility] mg oral 1-21 tab, PO, l tablet 19:26: Daily, 0 [place] 00 Refill(s) Amphetamine 2019-09 Yes 30 mg = 1 M emoria aspartate 1-21 tab, PO, l 7.5 MG / 19:26: Daily, 0 [place] Amphetamine 00 Refill(s) Sulfate 7.5 MG / Dextroamphe tamine saccharate 7.5 MG / Dextroamphe tamine Sulfate 7.5 MG Oral Tablet [Adderall] Amphetamine 2019-09 Yes 30 mg = 1 M [facility] aspartate 1-21 tab, PO, l 7.5 MG / 19:26: Daily, 0 [place] Amphetamine 00 Refill(s) Sulfate 7.5 MG / Dextroamphe tamine saccharate 7.5 MG / Dextroamphe tamine Sulfate 7.5 MG Oral Tablet [Adderall] Adderall 30 2019-09 Yes 30 mg = 1 M [facility] mg oral -21 tab, PO, l tablet 19:26: Daily, 0 [place] 00 Refill(s) Amphetamine 2019-09 Yes 30 mg = 1 M emoria aspartate -21 tab, PO, l 7.5 MG / 19:26: Daily, 0 [place] Amphetamine 00 Refill(s) Sulfate 7.5 MG / Dextroamphe tamine saccharate 7.5 MG / Dextroamphe tamine Sulfate 7.5 MG Oral Tablet [Adderall] Adderall 30 2019-09 Yes 30 mg = 1 M [facility] mg oral -21 tab, PO, l tablet 19:26: Daily, 0 [place] 00 Refill(s) Ibuprofen 2019-09 No 600 mg, [facility] 10-05 Route: PO, l 19:21: Drug form: [place] 00 TAB, Q6H, Dosing Weight 72.727, kg, PRN Pain Score 4-6, Start date: 08/05/20 13:21:00 STUNNER, Duration: 30 day, Stop date: 09/04/20 13:20:00 STUNNER Ibuprofen 2019-09 No 600 mg, [facility] 10-05 Route: PO, l 19:21: Drug form: [place] 00 TAB, Q6H, Dosing Weight 72.727, kg, PRN Pain Score 4-6, Start date: 08/05/20 13:21:00 STUNNER, Duration: 30 day, Stop date: 09/04/20 13:20:00 STUNNER Ibuprofen 2020-1 No 600 mg, [facility] 10-05 Route: PO, l 19:21: Drug form: [place] 00 TAB, Q6H, Dosing Weight 72.727, kg, PRN Pain Score 4-6, Start date: 08/05/20 13:21:00 STUNNER, Duration: 30 day, Stop date: 09/04/20 13:20:00 STUNNER Ibuprofen 2020- No 600 mg, [facility] 10-05 Route: PO, l 19:21: Drug form: [place] 00 TAB, Q6H, Dosing Weight 72.727, kg, PRN Pain Score 4-6, Start date: 08/05/20 13:21:00 STUNNER, Duration: 30 day, Stop date: 09/04/20 13:20:00 STUNNER Ibuprofen 2019- No 600 mg, [facility] 10-05 Route: PO, l 19:21: Drug form: [place] 00 TAB, Q6H, Dosing Weight 72.727, kg, PRN Pain Score 4-6, Start date: 08/05/20 13:21:00 STUNNER, Duration: 30 day, Stop date: 09/04/20 13:20:00 STUNNER Ibuprofen 2019- No 600 mg, [facility] 10-05 Route: PO, l 19:21: Drug form: [place] 00 TAB, Q6H, Dosing Weight 72.727, kg, PRN Pain Score 4-6, Start date: 08/05/20 13:21:00 STUNNER, Duration: 30 day, Stop date: 09/04/20 13:20:00 STUNNER Ibuprofen 2020- No 600 mg, [facility] 10-05 Route: PO, l 19:21: Drug form: [place] 00 TAB, Q6H, Dosing Weight 72.727, kg, PRN Pain Score 4-6, Start date: 08/05/20 13:21:00 STUNNER, Duration: 30 day, Stop date: 09/04/20 13:20:00 STUNNER Ibuprofen 2019-1 No 600 mg, [facility] 10-05 Route: PO, l 19:21: Drug form: [place] 00 TAB, Q6H, Dosing Weight 72.727, kg, PRN Pain Score 4-6, Start date: 08/05/20 13:21:00 STUNNER, Duration: 30 day, Stop date: 09/04/20 13:20:00 STUNNER Ibuprofen 2020-1 No 600 mg, [facility] 1- Route: PO, l 19:21: Drug form: [place] 00 TAB, Q6H, Dosing Weight 72.727, kg, PRN Pain Score 4-6, Start date: 08/05/20 13:21:00 STUNNER, Duration: 30 day, Stop date: 09/04/20 13:20:00 STUNNER Ibuprofen 2020-1 No 600 mg, [facility] 10-05 Route: PO, l 19:21: Drug form: [place] 00 TAB, Q6H, Dosing Weight 72.727, kg, PRN Pain Score 4-6, Start date: 08/05/20 13:21:00 STUNNER, Duration: 30 day, Stop date: 09/04/20 13:20:00 STUNNER Ibuprofen 2020-1 No 600 mg, [facility] 10-05 Route: PO, l 19:21: Drug form: [place] 00 TAB, Q6H, Dosing Weight 72.727, kg, PRN Pain Score 4-6, Start date: 08/05/20 13:21:00 STUNNER, Duration: 30 day, Stop date: 09/04/20 13:20:00 STUNNER Ibuprofen 2020- No 600 mg, [facility] 10-05 Route: PO, l 19:21: Drug form: [place] 00 TAB, Q6H, Dosing Weight 72.727, kg, PRN Pain Score 4-6, Start date: 08/05/20 13:21:00 STUNNER, Duration: 30 day, Stop date: 09/04/20 13:20:00 STUNNER Ibuprofen 2020-1 No 600 mg, [facility] - Route: PO, l 19:21: Drug form: [place] 00 TAB, Q6H, Dosing Weight 72.727, kg, PRN Pain Score 4-6, Start date: 08/05/20 13:21:00 STUNNER, Duration: 30 day, Stop date: 09/04/20 13:20:00 STUNNER Ibuprofen 2020-1 No 600 mg, [facility] 10-05 Route: PO, l 19:21: Drug form: [place] 00 TAB, Q6H, Dosing Weight 72.727, kg, PRN Pain Score 4-6, Start date: 08/05/20 13:21:00 STUNNER, Duration: 30 day, Stop date: 09/04/20 13:20:00 STUNNER Ibuprofen 2020-1 No 600 mg, [facility] 1- Route: PO, l 19:21: Drug form: [place] 00 TAB, Q6H, Dosing Weight 72.727, kg, PRN Pain Score 4-6, Start date: 08/05/20 13:21:00 STUNNER, Duration: 30 day, Stop date: 09/04/20 13:20:00 STUNNER Ibuprofen 2020-1 No 600 mg, [facility] - Route: PO, l 19:21: Drug form: [place] 00 TAB, Q6H, Dosing Weight 72.727, kg, PRN Pain Score 4-6, Start date: 08/05/20 13:21:00 STUNNER, Duration: 30 day, Stop date: 09/04/20 13:20:00 STUNNER Ibuprofen 2020- No 600 mg, [facility] 10-05 Route: PO, l 19:21: Drug form: [place] 00 TAB, Q6H, Dosing Weight 72.727, kg, PRN Pain Score 4-6, Start date: 08/05/20 13:21:00 STUNNER, Duration: 30 day, Stop date: 09/04/20 13:20:00 STUNNER Ibuprofen 2019- No 600 mg, [facility] 10-05 Route: PO, l 19:21: Drug form: [place] 00 TAB, Q6H, Dosing Weight 72.727, kg, PRN Pain Score 4-6, Start date: 08/05/20 13:21:00 STUNNER, Duration: 30 day, Stop date: 09/04/20 13:20:00 STUNNER Ibuprofen 2020-1 No 600 mg, [facility] - Route: PO, l 19:21: Drug form: [place] 00 TAB, Q6H, Dosing Weight 72.727, kg, PRN Pain Score 4-6, Start date: 08/05/20 13:21:00 STUNNER, Duration: 30 day, Stop date: 09/04/20 13:20:00 STUNNER Ibuprofen 2020-1 No 600 mg, [facility] 10-05 Route: PO, l 19:21: Drug form: [place] 00 TAB, Q6H, Dosing Weight 72.727, kg, PRN Pain Score 4-6, Start date: 08/05/20 13:21:00 STUNNER, Duration: 30 day, Stop date: 09/04/20 13:20:00 STUNNER Ibuprofen 2020-1 No 600 mg, [facility] 10-05 Route: PO, l 19:21: Drug form: [place] 00 TAB, Q6H, Dosing Weight 72.727, kg, PRN Pain Score 4-6, Start date: 08/05/20 13:21:00 STUNNER, Duration: 30 day, Stop date: 09/04/20 13:20:00 STUNNER Ibuprofen 2019-1 No 600 mg, [facility] 10-05 Route: PO, l 19:21: Drug form: [place] 00 TAB, Q6H, Dosing Weight 72.727, kg, PRN Pain Score 4-6, Start date: 08/05/20 13:21:00 STUNNER, Duration: 30 day, Stop date: 09/04/20 13:20:00 STUNNER Acetaminoph 2020-1 No 100.4 F, Karli emoria en 10-05 Start l 19:13: date: 08/05/20 13:13:00 STUNNER, Duration: 30 day, Stop date: 09/04/20 13:12:00 STUNNER, 0 Acetaminoph 2020-1 No 100.4 F, Karli emoria en 10-05 Start l 19:13: date: 08/05/20 13:13:00 STUNNER, Duration: 30 day, Stop date: 09/04/20 13:12:00 STUNNER, 0 Acetaminoph 2020-1 No 100.4 F, Karli emoria en 10-05 Start l 19:13: date: 08/05/20 13:13:00 STUNNER, Duration: 30 day, Stop date: 09/04/20 13:12:00 STUNNER, 0 Acetaminoph 2020-1 No 100.4 F, Karli emoria en 10-05 Start l 19:13: date: 08/05/20 13:13:00 STUNNER, Duration: 30 day, Stop date: 09/04/20 13:12:00 STUNNER, 0 Acetaminoph 2020-1 No 100.4 F, Karli emoria en 10-05 Start l 19:13: date: 08/05/20 13:13:00 STUNNER, Duration: 30 day, Stop date: 09/04/20 13:12:00 STUNNER, 0 Acetaminoph 2020-1 No 100.4 F, Karli antunez en 10-05 Start l 19:13: date: 08/05/20 13:13:00 STUNNER, Duration: 30 day, Stop date: 09/04/20 13:12:00 STUNNER, 0 Acetaminoph 2020-1 No 100.4 F, Karli antunez en 10-05 Start l 19:13: date: 08/05/20 13:13:00 STUNNER, Duration: 30 day, Stop date: 09/04/20 13:12:00 STUNNER, 0 Acetaminoph 2020-1 No 100.4 F, Karli antunez en 10-05 Start l 19:13: date: 08/05/20 13:13:00 STUNNER, Duration: 30 day, Stop date: 09/04/20 13:12:00 STUNNER, 0 Acetaminoph 2020-1 No 100.4 F, Karli antunez en 10-05 Start l 19:13: date: 08/05/20 13:13:00 STUNNER, Duration: 30 day, Stop date: 09/04/20 13:12:00 STUNNER, 0 Acetaminoph 2020-1 No 100.4 F, Karli antunez en 10-05 Start l 19:13: date: 08/05/20 13:13:00 STUNNER, Duration: 30 day, Stop date: 09/04/20 13:12:00 STUNNER, 0 Acetaminoph 2020-1 No 100.4 F, Karli antunez en 10-05 Start l 19:13: date: 08/05/20 13:13:00 STUNNER, Duration: 30 day, Stop date: 09/04/20 13:12:00 STUNNER, 0 Acetaminoph 2020-1 No 100.4 F, Karli antunez en 10-05 Start l 19:13: date: 08/05/20 13:13:00 STUNNER, Duration: 30 day, Stop date: 09/04/20 13:12:00 STUNNER, 0 Acetaminoph 2020-1 No 100.4 F, Karli emoria en 1-21 Start l 19:13: date: 08/05/20 13:13:00 STUNNER, Duration: 30 day, Stop date: 09/04/20 13:12:00 STUNNER, 0 Acetaminoph 2020-1 No 100.4 F, Karli emoria en - Start l 19:13: date: 08/05/20 13:13:00 STUNNER, Duration: 30 day, Stop date: 09/04/20 13:12:00 STUNNER, 0 Acetaminoph 2020-1 No 100.4 F, Karli emoria en - Start l 19:13: date: 08/05/20 13:13:00 STUNNER, Duration: 30 day, Stop date: 09/04/20 13:12:00 STUNNER, 0 Acetaminoph 2020-1 No 100.4 F, Karli emoria en - Start l 19:13: date: 08/05/20 13:13:00 STUNNER, Duration: 30 day, Stop date: 09/04/20 13:12:00 STUNNER, 0 Acetaminoph 2020-1 No 100.4 F, Karli emoria en - Start l 19:13: date: 08/05/20 13:13:00 STUNNER, Duration: 30 day, Stop date: 09/04/20 13:12:00 STUNNER, 0 Acetaminoph 2020-1 No 100.4 F, Karli emoria en - Start l 19:13: date: 08/05/20 13:13:00 STUNNER, Duration: 30 day, Stop date: 09/04/20 13:12:00 STUNNER, 0 Acetaminoph 2020-1 No 100.4 F, Karli emoria en - Start l 19:13: date: 08/05/20 13:13:00 STUNNER, Duration: 30 day, Stop date: 09/04/20 13:12:00 STUNNER, 0 Acetaminoph 2020-1 No 100.4 F, Karli emoria en - Start l 19:13: date: 08/05/20 13:13:00 STUNNER, Duration: 30 day, Stop date: 09/04/20 13:12:00 STUNNER, 0 Acetaminoph 2020-1 No 100.4 F, Karli antunez en -21 Start l 19:13: date: 08/05/20 13:13:00 STUNNER, Duration: 30 day, Stop date: 09/04/20 13:12:00 STUNNER, 0 Acetaminoph 2020-1 No 100.4 F, Karli antunez en -21 Start l 19:13: date: 08/05/20 13:13:00 STUNNER, Duration: 30 day, Stop date: 09/04/20 13:12:00 STUNNER, 0 Calcium 2020-1 No 1,000 mL, [facility] Chloride 1-21 1,000 l 0.0014 17:45: ml/hr, MEQ/ML / 00 Infuse Potassium Over: 1 Chloride hr, Route: 0.004 IV, 1,000, MEQ/ML / Drug form: Sodium INJ, ONCE, Chloride Priority: 0.103 STAT, MEQ/ML / Dosing Sodium Weight Lactate 72.727 kg, 0.028 Start MEQ/ML date: Injectable 08/05/20 Solution 11:45:00 STUNNER, Stop date: 08/05/20 11:45:00 STUNNER, 0 Lactated 2020-1 No 1,000 mL, William loy Ringers IV 10-05 Rate: 125 l 1,000 mL 17:45: ml/hr, Infuse over: 8 hr, Route: IV, Dosing Weight 72.727 kg, Total Volume: 1,000, Start date: 08/05/20 11:45:00 STUNNER, Duration: 30 day, Stop date: 09/04/20 11:44:00 STUNNER, 1.86, m2, 0 Calcium 2020-1 No 1,000 mL, [facility] Chloride -21 1,000 l 0.0014 17:45: ml/hr, MEQ/ML / 00 Infuse Potassium Over: 1 Chloride hr, Route: 0.004 IV, 1,000, MEQ/ML / Drug form: Sodium INJ, ONCE, [place] Priority: 0.103 STAT, MEQ/ML / Dosing Sodium Weight Lactate 72.727 kg, 0.028 Start MEQ/ML date: Injectable 08/05/20 Solution 11:45:00 STUNNER, Stop date: 08/05/20 11:45:00 STUNNER, 0 Lactated 2020-1 No 1,000 mL, William loy Ringers IV -21 Rate: 125 l 1,000 mL 17:45: ml/hr, [place] 00 Infuse over: 8 hr, Route: IV, Dosing Weight 72.727 kg, Total Volume: 1,000, Start date: 08/05/20 11:45:00 STUNNER, Duration: 30 day, Stop date: 09/04/20 11:44:00 STUNNER, 1.86, m2, 0 Calcium 2020-1 No 1,000 mL, [facility] Chloride 1-21 1,000 l 0.0014 17:45: ml/hr, [place] MEQ/ML / 00 Infuse Potassium Over: 1 Chloride hr, Route: 0.004 IV, 1,000, MEQ/ML / Drug form: Sodium INJ, ONCE, Chloride Priority: 0.103 STAT, MEQ/ML / Dosing Sodium Weight Lactate 72.727 kg, 0.028 Start MEQ/ML date: Injectable 08/05/20 Solution 11:45:00 STUNNER, Stop date: 08/05/20 11:45:00 STUNNER, 0 Lactated 2020-1 No 1,000 mL, William loy Ringers IV - Rate: 125 l 1,000 mL 17:45: ml/hr, [place] 00 Infuse over: 8 hr, Route: IV, Dosing Weight 72.727 kg, Total Volume: 1,000, Start date: 08/05/20 11:45:00 STUNNER, Duration: 30 day, Stop date: 09/04/20 11:44:00 STUNNER, 1.86, m2, 0 Calcium 2020-1 No 1,000 mL, [facility] Chloride -21 1,000 l 0.0014 17:45: ml/hr, [place] MEQ/ML / 00 Infuse Potassium Over: 1 Chloride hr, Route: 0.004 IV, 1,000, MEQ/ML / Drug form: Sodium INJ, ONCE, Chloride Priority: 0.103 STAT, MEQ/ML / Dosing Sodium Weight Lactate 72.727 kg, 0.028 Start MEQ/ML date: Injectable 08/05/20 Solution 11:45:00 STUNNER, Stop date: 08/05/20 11:45:00 STUNNER, 0 Lactated 2020-1 No 1,000 mL, William loy Ringers IV -21 Rate: 125 l 1,000 mL 17:45: ml/hr, [place] 00 Infuse over: 8 hr, Route: IV, Dosing Weight 72.727 kg, Total Volume: 1,000, Start date: 08/05/20 11:45:00 STUNNER, Duration: 30 day, Stop date: 09/04/20 11:44:00 STUNNER, 1.86, m2, 0 Calcium 2020-1 No 1,000 mL, [facility] Chloride 1-21 1,000 l 0.0014 17:45: ml/hr, [place] MEQ/ML / 00 Infuse Potassium Over: 1 Chloride hr, Route: 0.004 IV, 1,000, MEQ/ML / Drug form: Sodium INJ, ONCE, Chloride Priority: 0.103 STAT, MEQ/ML / Dosing Sodium Weight Lactate 72.727 kg, 0.028 Start MEQ/ML date: Injectable 08/05/20 Solution 11:45:00 STUNNER, Stop date: 08/05/20 11:45:00 STUNNER, 0 Lactated 2020-1 No 1,000 mL, William loy Ringers IV - Rate: 125 l 1,000 mL 17:45: ml/hr, [place] 00 Infuse over: 8 hr, Route: IV, Dosing Weight 72.727 kg, Total Volume: 1,000, Start date: 08/05/20 11:45:00 STUNNER, Duration: 30 day, Stop date: 09/04/20 11:44:00 STUNNER, 1.86, m2, 0 Calcium 2020-1 No 1,000 mL, [facility] Chloride -21 1,000 l 0.0014 17:45: ml/hr, Avinash MEQ/ML / 00 Infuse Potassium Over: 1 Chloride hr, Route: 0.004 IV, 1,000, MEQ/ML / Drug form: Sodium INJ, ONCE, Chloride Priority: 0.103 STAT, MEQ/ML / Dosing Sodium Weight Lactate 72.727 kg, 0.028 Start MEQ/ML date: Injectable 08/05/20 Solution 11:45:00 STUNNER, Stop date: 08/05/20 11:45:00 STUNNER, 0 Lactated 2020-1 No 1,000 mL, William loy Ringers IV -21 Rate: 125 l 1,000 mL 17:45: ml/hr, Avinash 00 Infuse over: 8 hr, Route: IV, Dosing Weight 72.727 kg, Total Volume: 1,000, Start date: 08/05/20 11:45:00 STUNNER, Duration: 30 day, Stop date: 09/04/20 11:44:00 STUNNER, 1.86, m2, 0 Calcium 2020-1 No 1,000 mL, [facility] Chloride 1-21 1,000 l 0.0014 17:45: ml/hr, Avinash MEQ/ML / 00 Infuse Potassium Over: 1 Chloride hr, Route: 0.004 IV, 1,000, MEQ/ML / Drug form: Sodium INJ, ONCE, Chloride Priority: 0.103 STAT, MEQ/ML / Dosing Sodium Weight Lactate 72.727 kg, 0.028 Start MEQ/ML date: Injectable 08/05/20 Solution 11:45:00 STUNNER, Stop date: 08/05/20 11:45:00 STUNNER, 0 Lactated 2020-1 No 1,000 mL, William loy Ringers IV - Rate: 125 l 1,000 mL 17:45: ml/hr, Avinash 00 Infuse over: 8 hr, Route: IV, Dosing Weight 72.727 kg, Total Volume: 1,000, Start date: 08/05/20 11:45:00 STUNNER, Duration: 30 day, Stop date: 09/04/20 11:44:00 STUNNER, 1.86, m2, 0 Calcium 2020-1 No 1,000 mL, [facility] Chloride 1-21 1,000 l 0.0014 17:45: ml/hr, [place] MEQ/ML / 00 Infuse Potassium Over: 1 Chloride hr, Route: 0.004 IV, 1,000, MEQ/ML / Drug form: Sodium INJ, ONCE, Chloride Priority: 0.103 STAT, MEQ/ML / Dosing Sodium Weight Lactate 72.727 kg, 0.028 Start MEQ/ML date: Injectable 08/05/20 Solution 11:45:00 STUNNER, Stop date: 08/05/20 11:45:00 STUNNER, 0 Lactated 2020-1 No 1,000 mL, William loy Ringers IV 1-21 Rate: 125 l 1,000 mL 17:45: ml/hr, Avinash 00 Infuse over: 8 hr, Route: IV, Dosing Weight 72.727 kg, Total Volume: 1,000, Start date: 08/05/20 11:45:00 STUNNER, Duration: 30 day, Stop date: 09/04/20 11:44:00 STUNNER, 1.86, m2, 0 Calcium 2020-1 No 1,000 mL, [facility] Chloride 1-21 1,000 l 0.0014 17:45: ml/hr, [place] MEQ/ML / 00 Infuse Potassium Over: 1 Chloride hr, Route: 0.004 IV, 1,000, MEQ/ML / Drug form: Sodium INJ, ONCE, Chloride Priority: 0.103 STAT, MEQ/ML / Dosing Sodium Weight Lactate 72.727 kg, 0.028 Start MEQ/ML date: Injectable 08/05/20 Solution 11:45:00 STUNNER, Stop date: 08/05/20 11:45:00 STUNNER, 0 Lactated 2020-1 No 1,000 mL, William loy Ringers IV - Rate: 125 l 1,000 mL 17:45: ml/hr, Avinash 00 Infuse over: 8 hr, Route: IV, Dosing Weight 72.727 kg, Total Volume: 1,000, Start date: 08/05/20 11:45:00 STUNNER, Duration: 30 day, Stop date: 09/04/20 11:44:00 STUNNER, 1.86, m2, 0 Calcium 2020-1 No 1,000 mL, [facility] Chloride 1-21 1,000 l 0.0014 17:45: ml/hr, [place] MEQ/ML / 00 Infuse Potassium Over: 1 Chloride hr, Route: 0.004 IV, 1,000, MEQ/ML / Drug form: Sodium INJ, ONCE, Chloride Priority: 0.103 STAT, MEQ/ML / Dosing Sodium Weight Lactate 72.727 kg, 0.028 Start MEQ/ML date: Injectable 08/05/20 Solution 11:45:00 STUNNER, Stop date: 08/05/20 11:45:00 STUNNER, 0 Lactated 2020-1 No 1,000 mL, William loy Ringers IV -21 Rate: 125 l 1,000 mL 17:45: ml/hr, [place] 00 Infuse over: 8 hr, Route: IV, Dosing Weight 72.727 kg, Total Volume: 1,000, Start date: 08/05/20 11:45:00 STUNNER, Duration: 30 day, Stop date: 09/04/20 11:44:00 STUNNER, 1.86, m2, 0 Calcium 2020-1 No 1,000 mL, [facility] Chloride 1-21 1,000 l 0.0014 17:45: ml/hr, [place] MEQ/ML / 00 Infuse Potassium Over: 1 Chloride hr, Route: 0.004 IV, 1,000, MEQ/ML / Drug form: Sodium INJ, ONCE, Chloride Priority: 0.103 STAT, MEQ/ML / Dosing Sodium Weight Lactate 72.727 kg, 0.028 Start MEQ/ML date: Injectable 08/05/20 Solution 11:45:00 STUNNER, Stop date: 08/05/20 11:45:00 STUNNER, 0 Lactated 2020-1 No 1,000 mL, William loy Ringers IV -21 Rate: 125 l 1,000 mL 17:45: ml/hr, [facility] 00 Infuse over: 8 hr, Route: IV, Dosing Weight 72.727 kg, Total Volume: 1,000, Start date: 08/05/20 11:45:00 STUNNER, Duration: 30 day, Stop date: 09/04/20 11:44:00 STUNNER, 1.86, m2, 0 Calcium 2020-1 No 1,000 mL, [facility] Chloride 1-21 1,000 l 0.0014 17:45: ml/hr, [facility] MEQ/ML / 00 Infuse Potassium Over: 1 Chloride hr, Route: 0.004 IV, 1,000, MEQ/ML / Drug form: Sodium INJ, ONCE, Chloride Priority: 0.103 STAT, MEQ/ML / Dosing Sodium Weight Lactate 72.727 kg, 0.028 Start MEQ/ML date: Injectable 08/05/20 Solution 11:45:00 STUNNER, Stop date: 08/05/20 11:45:00 STUNNER, 0 Lactated 2020-1 No 1,000 mL, William loy Ringers IV -21 Rate: 125 l 1,000 mL 17:45: ml/hr, [facility] 00 Infuse over: 8 hr, Route: IV, Dosing Weight 72.727 kg, Total Volume: 1,000, Start date: 08/05/20 11:45:00 STUNNER, Duration: 30 day, Stop date: 09/04/20 11:44:00 STUNNER, 1.86, m2, 0 Calcium 2020-1 No 1,000 mL, [facility] Chloride 1-21 1,000 l 0.0014 17:45: ml/hr, [facility] MEQ/ML / 00 Infuse Potassium Over: 1 Chloride hr, Route: 0.004 IV, 1,000, MEQ/ML / Drug form: Sodium INJ, ONCE, Chloride Priority: 0.103 STAT, MEQ/ML / Dosing Sodium Weight Lactate 72.727 kg, 0.028 Start MEQ/ML date: Injectable 08/05/20 Solution 11:45:00 STUNNER, Stop date: 08/05/20 11:45:00 STUNNER, 0 Lactated 2020-1 No 1,000 mL, William loy Ringers IV 10-05 Rate: 125 l 1,000 mL 17:45: ml/hr, [facility] 00 Infuse over: 8 hr, Route: IV, Dosing Weight 72.727 kg, Total Volume: 1,000, Start date: 08/05/20 11:45:00 STUNNER, Duration: 30 day, Stop date: 09/04/20 11:44:00 STUNNER, 1.86, m2, 0 Calcium 2020-1 No 1,000 mL, [facility] Chloride 1-21 1,000 l 0.0014 17:45: ml/hr, [place] MEQ/ML / 00 Infuse Potassium Over: 1 Chloride hr, Route: 0.004 IV, 1,000, MEQ/ML / Drug form: Sodium INJ, ONCE, Chloride Priority: 0.103 STAT, MEQ/ML / Dosing Sodium Weight Lactate 72.727 kg, 0.028 Start MEQ/ML date: Injectable 08/05/20 Solution 11:45:00 STUNNER, Stop date: 08/05/20 11:45:00 STUNNER, 0 Lactated 2020-1 No 1,000 mL, William loy Ringers IV 10-05 Rate: 125 l 1,000 mL 17:45: ml/hr, [place] 00 Infuse over: 8 hr, Route: IV, Dosing Weight 72.727 kg, Total Volume: 1,000, Start date: 08/05/20 11:45:00 STUNNER, Duration: 30 day, Stop date: 09/04/20 11:44:00 STUNNER, 1.86, m2, 0 Calcium 2020-1 No 1,000 mL, [facility] Chloride 1-21 1,000 l 0.0014 17:45: ml/hr, [place] MEQ/ML / 00 Infuse Potassium Over: 1 Chloride hr, Route: 0.004 IV, 1,000, MEQ/ML / Drug form: Sodium INJ, ONCE, Chloride Priority: 0.103 STAT, MEQ/ML / Dosing Sodium Weight Lactate 72.727 kg, 0.028 Start MEQ/ML date: Injectable 08/05/20 Solution 11:45:00 STUNNER, Stop date: 08/05/20 11:45:00 STUNNER, 0 Lactated 2020-1 No 1,000 mL, William loy Ringers IV 10-05 Rate: 125 l 1,000 mL 17:45: ml/hr, [place] 00 Infuse over: 8 hr, Route: IV, Dosing Weight 72.727 kg, Total Volume: 1,000, Start date: 08/05/20 11:45:00 STUNNER, Duration: 30 day, Stop date: 09/04/20 11:44:00 STUNNER, 1.86, m2, 0 Calcium 2020-1 No 1,000 mL, [facility] Chloride -21 1,000 l 0.0014 17:45: ml/hr, [place] MEQ/ML / 00 Infuse Potassium Over: 1 Chloride hr, Route: 0.004 IV, 1,000, MEQ/ML / Drug form: Sodium INJ, ONCE, Chloride Priority: 0.103 STAT, MEQ/ML / Dosing Sodium Weight Lactate 72.727 kg, 0.028 Start MEQ/ML date: Injectable 08/05/20 Solution 11:45:00 STUNNER, Stop date: 08/05/20 11:45:00 STUNNER, 0 Lactated 2019-1 No 1,000 mL, William loy Ringers IV 10-05 Rate: 125 l 1,000 mL 17:45: ml/hr, [facility] 00 Infuse over: 8 hr, Route: IV, Dosing Weight 72.727 kg, Total Volume: 1,000, Start date: 08/05/20 11:45:00 STUNNER, Duration: 30 day, Stop date: 09/04/20 11:44:00 STUNNER, 1.86, m2, 0 Calcium 2020-1 No 1,000 mL, [facility] Chloride 1-21 1,000 l 0.0014 17:45: ml/hr, [place] MEQ/ML / 00 Infuse Potassium Over: 1 Chloride hr, Route: 0.004 IV, 1,000, MEQ/ML / Drug form: Sodium INJ, ONCE, Chloride Priority: 0.103 STAT, MEQ/ML / Dosing Sodium Weight Lactate 72.727 kg, 0.028 Start MEQ/ML date: Injectable 08/05/20 Solution 11:45:00 STUNNER, Stop date: 08/05/20 11:45:00 STUNNER, 0 Lactated 2020-1 No 1,000 mL, William loy Ringers IV 10-05 Rate: 125 l 1,000 mL 17:45: ml/hr, [place] 00 Infuse over: 8 hr, Route: IV, Dosing Weight 72.727 kg, Total Volume: 1,000, Start date: 08/05/20 11:45:00 STUNNER, Duration: 30 day, Stop date: 09/04/20 11:44:00 STUNNER, 1.86, m2, 0 Calcium 2020-1 No 1,000 mL, [facility] Chloride -21 1,000 l 0.0014 17:45: ml/hr, [place] MEQ/ML / 00 Infuse Potassium Over: 1 Chloride hr, Route: 0.004 IV, 1,000, MEQ/ML / Drug form: Sodium INJ, ONCE, Chloride Priority: 0.103 STAT, MEQ/ML / Dosing Sodium Weight Lactate 72.727 kg, 0.028 Start MEQ/ML date: Injectable 08/05/20 Solution 11:45:00 STUNNER, Stop date: 08/05/20 11:45:00 STUNNER, 0 Lactated 2020-1 No 1,000 mL, William loy Ringers IV 10-05 Rate: 125 l 1,000 mL 17:45: ml/hr, [facility] 00 Infuse over: 8 hr, Route: IV, Dosing Weight 72.727 kg, Total Volume: 1,000, Start date: 08/05/20 11:45:00 STUNNER, Duration: 30 day, Stop date: 09/04/20 11:44:00 STUNNER, 1.86, m2, 0 Calcium 2020-1 No 1,000 mL, [facility] Chloride -21 1,000 l 0.0014 17:45: ml/hr, [place] MEQ/ML / 00 Infuse Potassium Over: 1 Chloride hr, Route: 0.004 IV, 1,000, MEQ/ML / Drug form: Sodium INJ, ONCE, Chloride Priority: 0.103 STAT, MEQ/ML / Dosing Sodium Weight Lactate 72.727 kg, 0.028 Start MEQ/ML date: Injectable 08/05/20 Solution 11:45:00 STUNNER, Stop date: 08/05/20 11:45:00 STUNNER, 0 Lactated 2020-1 No 1,000 mL, William loy Ringers IV -21 Rate: 125 l 1,000 mL 17:45: ml/hr, [facility] 00 Infuse over: 8 hr, Route: IV, Dosing Weight 72.727 kg, Total Volume: 1,000, Start date: 08/05/20 11:45:00 STUNNER, Duration: 30 day, Stop date: 09/04/20 11:44:00 STUNNER, 1.86, m2, 0 Calcium 2020-1 No 1,000 mL, [facility] Chloride 1-21 1,000 l 0.0014 17:45: ml/hr, [place] MEQ/ML / 00 Infuse Potassium Over: 1 Chloride hr, Route: 0.004 IV, 1,000, MEQ/ML / Drug form: Sodium INJ, ONCE, Chloride Priority: 0.103 STAT, MEQ/ML / Dosing Sodium Weight Lactate 72.727 kg, 0.028 Start MEQ/ML date: Injectable 08/05/20 Solution 11:45:00 STUNNER, Stop date: 08/05/20 11:45:00 STUNNER, 0 Lactated 2020-1 No 1,000 mL, William loy Ringers IV - Rate: 125 l 1,000 mL 17:45: ml/hr, [place] 00 Infuse over: 8 hr, Route: IV, Dosing Weight 72.727 kg, Total Volume: 1,000, Start date: 08/05/20 11:45:00 STUNNER, Duration: 30 day, Stop date: 09/04/20 11:44:00 STUNNER, 1.86, m2, 0 Calcium 2020-1 No 1,000 mL, [facility] Chloride 1-21 1,000 l 0.0014 17:45: ml/hr, [place] MEQ/ML / 00 Infuse Potassium Over: 1 Chloride hr, Route: 0.004 IV, 1,000, MEQ/ML / Drug form: Sodium INJ, ONCE, Chloride Priority: 0.103 STAT, MEQ/ML / Dosing Sodium Weight Lactate 72.727 kg, 0.028 Start MEQ/ML date: Injectable 08/05/20 Solution 11:45:00 STUNNER, Stop date: 08/05/20 11:45:00 STUNNER, 0 Lactated 2020-1 No 1,000 mL, William loy Ringers IV 21 Rate: 125 l 1,000 mL 17:45: ml/hr, [place] 00 Infuse over: 8 hr, Route: IV, Dosing Weight 72.727 kg, Total Volume: 1,000, Start date: 08/05/20 11:45:00 STUNNER, Duration: 30 day, Stop date: 09/04/20 11:44:00 STUNNER, 1.86, m2, 0 Calcium 2020-1 No 1,000 mL, [facility] Chloride -21 1,000 l 0.0014 17:45: ml/hr, [facility] MEQ/ML / 00 Infuse Potassium Over: 1 Chloride hr, Route: 0.004 IV, 1,000, MEQ/ML / Drug form: Sodium INJ, ONCE, Chloride Priority: 0.103 STAT, MEQ/ML / Dosing Sodium Weight Lactate 72.727 kg, 0.028 Start MEQ/ML date: Injectable 08/05/20 Solution 11:45:00 STUNNER, Stop date: 08/05/20 11:45:00 STUNNER, 0 Lactated 2019-1 No 1,000 mL, William loy Ringers IV 10-05 Rate: 125 l 1,000 mL 17:45: ml/hr, [facility] 00 Infuse over: 8 hr, Route: IV, Dosing Weight 72.727 kg, Total Volume: 1,000, Start date: 08/05/20 11:45:00 STUNNER, Duration: 30 day, Stop date: 09/04/20 11:44:00 STUNNER, 1.86, m2, 0 Dextrose 2020-1 No 12.5 gm, [facility] 50% Syringe 10-05 25 mL, l (D50W) 17:43: Route: [facility] 00 IVP, Drug Form: INJ, Dosing Weight 72.727, kg, PRN, PRN Blood Glucose Results, Start date: 08/05/20 11:43:00 STUNNER, Duration: 30 day, Stop date: 09/04/20 11:42:00 STUNNER, 0 Glucagon 2019-1 No 1 mg, [facility] 10-05 Route: IM, l 17:43: Drug form: [place] 00 PDR/INJ, PRN, Dosing Weight 72.727, kg, PRN Blood Glucose Results, Start date: 08/05/20 11:43:00 STUNNER, Duration: 30 day, Stop date: 09/04/20 11:42:00 STUNNER, 0 Acetaminoph 2019- No Notes: Do M emoria en 10-05 not exceed l 17:43: 4 gm/day. [facility] (Same as: Tylenol) Dextrose 2019-09 No 12.5 gm, [facility] 50% Syringe 10-05 25 mL, l (D50W) 17:43: Route: [facility] 00 IVP, Drug Form: INJ, Dosing Weight 72.727, kg, PRN, PRN Blood Glucose Results, Start date: 08/05/20 11:43:00 STUNNER, Duration: 30 day, Stop date: 09/04/20 11:42:00 STUNNER, 0 Glucagon 2019-1 No 1 mg, [facility] 10-05 Route: IM, l 17:43: Drug form: [place] 00 PDR/INJ, PRN, Dosing Weight 72.727, kg, PRN Blood Glucose Results, Start date: 08/05/20 11:43:00 STUNNER, Duration: 30 day, Stop date: 09/04/20 11:42:00 STUNNER, 0 Acetaminoph 2019- No Notes: Do M emoria en 10-05 not exceed l 17:43: 4 gm/day. [facility] 00 (Same as: Tylenol) Dextrose 2019-09 No 12.5 gm, [facility] 50% Syringe 10-05 25 mL, l (D50W) 17:43: Route: [place] 00 IVP, Drug Form: INJ, Dosing Weight 72.727, kg, PRN, PRN Blood Glucose Results, Start date: 08/05/20 11:43:00 STUNNER, Duration: 30 day, Stop date: 09/04/20 11:42:00 STUNNER, 0 Glucagon 2020-1 No 1 mg, [facility] 10-05 Route: IM, l 17:43: Drug form: [place] 00 PDR/INJ, PRN, Dosing Weight 72.727, kg, PRN Blood Glucose Results, Start date: 08/05/20 11:43:00 STUNNER, Duration: 30 day, Stop date: 09/04/20 11:42:00 STUNNER, 0 Acetaminoph 2020-1 No Notes: Do Karli cheneyria en 10-05 not exceed l 17:43: 4 gm/day. (Same as: Tylenol) Dextrose 2019-1 No 12.5 gm, [facility] 50% Syringe - 25 mL, l (D50W) 17:43: Route: [place] 00 IVP, Drug Form: INJ, Dosing Weight 72.727, kg, PRN, PRN Blood Glucose Results, Start date: 08/05/20 11:43:00 STUNNER, Duration: 30 day, Stop date: 09/04/20 11:42:00 STUNNER, 0 Glucagon 2020-1 No 1 mg, [facility] - Route: IM, l 17:43: Drug form: [place] 00 PDR/INJ, PRN, Dosing Weight 72.727, kg, PRN Blood Glucose Results, Start date: 08/05/20 11:43:00 STUNNER, Duration: 30 day, Stop date: 09/04/20 11:42:00 STUNNER, 0 Acetaminoph 2020-1 No Notes: Do Karli cheneyria en 10-05 not exceed l 17:43: 4 gm/day. (Same as: Tylenol) Dextrose 2019-1 No 12.5 gm, [facility] 50% Syringe - 25 mL, l (D50W) 17:43: Route: [place] 00 IVP, Drug Form: INJ, Dosing Weight 72.727, kg, PRN, PRN Blood Glucose Results, Start date: 08/05/20 11:43:00 STUNNER, Duration: 30 day, Stop date: 09/04/20 11:42:00 STUNNER, 0 Glucagon 2020-1 No 1 mg, [facility] 10-05 Route: IM, l 17:43: Drug form: [place] 00 PDR/INJ, PRN, Dosing Weight 72.727, kg, PRN Blood Glucose Results, Start date: 08/05/20 11:43:00 STUNNER, Duration: 30 day, Stop date: 09/04/20 11:42:00 STUNNER, 0 Acetaminoph 2020-1 No Notes: Do M emoria en 10-05 not exceed l 17:43: 4 gm/day. [facility] 00 (Same as: Tylenol) Dextrose 2019-09 No 12.5 gm, [facility] 50% Syringe - 25 mL, l (D50W) 17:43: Route: [facility] 00 IVP, Drug Form: INJ, Dosing Weight 72.727, kg, PRN, PRN Blood Glucose Results, Start date: 08/05/20 11:43:00 STUNNER, Duration: 30 day, Stop date: 09/04/20 11:42:00 STUNNER, 0 Glucagon 2019-1 No 1 mg, [facility] 10-05 Route: IM, l 17:43: Drug form: [facility] 00 PDR/INJ, PRN, Dosing Weight 72.727, kg, PRN Blood Glucose Results, Start date: 08/05/20 11:43:00 STUNNER, Duration: 30 day, Stop date: 09/04/20 11:42:00 STUNNER, 0 Acetaminoph 2019- No Notes: Do Karli emoria en 10-05 not exceed l 17:43: 4 gm/day. [place] 00 (Same as: Tylenol) Dextrose 2019-09 No 12.5 gm, [facility] 50% Syringe 10-05 25 mL, l (D50W) 17:43: Route: [facility] 00 IVP, Drug Form: INJ, Dosing Weight 72.727, kg, PRN, PRN Blood Glucose Results, Start date: 08/05/20 11:43:00 STUNNER, Duration: 30 day, Stop date: 09/04/20 11:42:00 STUNNER, 0 Glucagon 2019-1 No 1 mg, [facility] 10-05 Route: IM, l 17:43: Drug form: [place] 00 PDR/INJ, PRN, Dosing Weight 72.727, kg, PRN Blood Glucose Results, Start date: 08/05/20 11:43:00 STUNNER, Duration: 30 day, Stop date: 09/04/20 11:42:00 STUNNER, 0 Acetaminoph 2020-1 No Notes: Do M emoria en 10-05 not exceed l 17:43: 4 gm/day. [place] 00 (Same as: Tylenol) Dextrose 2019-09 No 12.5 gm, [facility] 50% Syringe 1-21 25 mL, l (D50W) 17:43: Route: [facility] 00 IVP, Drug Form: INJ, Dosing Weight 72.727, kg, PRN, PRN Blood Glucose Results, Start date: 08/05/20 11:43:00 STUNNER, Duration: 30 day, Stop date: 09/04/20 11:42:00 STUNNER, 0 Glucagon 2020-1 No 1 mg, [facility] 10-05 Route: IM, l 17:43: Drug form: [place] 00 PDR/INJ, PRN, Dosing Weight 72.727, kg, PRN Blood Glucose Results, Start date: 08/05/20 11:43:00 STUNNER, Duration: 30 day, Stop date: 09/04/20 11:42:00 STUNNER, 0 Acetaminoph 2020-1 No Notes: Do M emoria en 10-05 not exceed l 17:43: 4 gm/day. [facility] (Same as: Tylenol) Dextrose 2019-1 No 12.5 gm, [facility] 50% Syringe - 25 mL, l (D50W) 17:43: Route: [place] IVP, Drug Form: INJ, Dosing Weight 72.727, kg, PRN, PRN Blood Glucose Results, Start date: 08/05/20 11:43:00 STUNNER, Duration: 30 day, Stop date: 09/04/20 11:42:00 STUNNER, 0 Glucagon 2019-1 No 1 mg, [facility] 10-05 Route: IM, l 17:43: Drug form: [place] 00 PDR/INJ, PRN, Dosing Weight 72.727, kg, PRN Blood Glucose Results, Start date: 08/05/20 11:43:00 STUNNER, Duration: 30 day, Stop date: 09/04/20 11:42:00 STUNNER, 0 Acetaminoph 2020-1 No Notes: Do M emoria en 10-05 not exceed l 17:43: 4 gm/day. [facility] (Same as: Tylenol) Dextrose 2019-1 No 12.5 gm, [facility] 50% Syringe 1-21 25 mL, l (D50W) 17:43: Route: [place] 00 IVP, Drug Form: INJ, Dosing Weight 72.727, kg, PRN, PRN Blood Glucose Results, Start date: 08/05/20 11:43:00 STUNNER, Duration: 30 day, Stop date: 09/04/20 11:42:00 STUNNER, 0 Glucagon 2020-1 No 1 mg, [facility] 10-05 Route: IM, l 17:43: Drug form: [place] 00 PDR/INJ, PRN, Dosing Weight 72.727, kg, PRN Blood Glucose Results, Start date: 08/05/20 11:43:00 STUNNER, Duration: 30 day, Stop date: 09/04/20 11:42:00 STUNNER, 0 Acetaminoph 2020-1 No Notes: Do M emoria en 10-05 not exceed l 17:43: 4 gm/day. [place] 00 (Same as: Tylenol) Dextrose 2019- No 12.5 gm, [facility] 50% Syringe - 25 mL, l (D50W) 17:43: Route: [facility] 00 IVP, Drug Form: INJ, Dosing Weight 72.727, kg, PRN, PRN Blood Glucose Results, Start date: 08/05/20 11:43:00 STUNNER, Duration: 30 day, Stop date: 09/04/20 11:42:00 STUNNER, 0 Glucagon 2020-1 No 1 mg, [facility] 10-05 Route: IM, l 17:43: Drug form: [place] 00 PDR/INJ, PRN, Dosing Weight 72.727, kg, PRN Blood Glucose Results, Start date: 08/05/20 11:43:00 STUNNER, Duration: 30 day, Stop date: 09/04/20 11:42:00 STUNNER, 0 Acetaminoph 2020-1 No Notes: Do M emoria en 10-05 not exceed l 17:43: 4 gm/day. [facility] 00 (Same as: Tylenol) Dextrose 2019-1 No 12.5 gm, [facility] 50% Syringe - 25 mL, l (D50W) 17:43: Route: [facility] 00 IVP, Drug Form: INJ, Dosing Weight 72.727, kg, PRN, PRN Blood Glucose Results, Start date: 08/05/20 11:43:00 STUNNER, Duration: 30 day, Stop date: 09/04/20 11:42:00 STUNNER, 0 Glucagon 2020-1 No 1 mg, [facility] 10-05 Route: IM, l 17:43: Drug form: [place] 00 PDR/INJ, PRN, Dosing Weight 72.727, kg, PRN Blood Glucose Results, Start date: 08/05/20 11:43:00 STUNNER, Duration: 30 day, Stop date: 09/04/20 11:42:00 STUNNER, 0 Acetaminoph 2020- No Notes: Do Karli emoria en 10-05 not exceed l 17:43: 4 gm/day. [facility] 00 (Same as: Tylenol) Dextrose 2019-09 No 12.5 gm, [facility] 50% Syringe 10-05 25 mL, l (D50W) 17:43: Route: [facility] 00 IVP, Drug Form: INJ, Dosing Weight 72.727, kg, PRN, PRN Blood Glucose Results, Start date: 08/05/20 11:43:00 STUNNER, Duration: 30 day, Stop date: 09/04/20 11:42:00 STUNNER, 0 Glucagon 2019-1 No 1 mg, [facility] 10-05 Route: IM, l 17:43: Drug form: [place] PDR/INJ, PRN, Dosing Weight 72.727, kg, PRN Blood Glucose Results, Start date: 08/05/20 11:43:00 STUNNER, Duration: 30 day, Stop date: 09/04/20 11:42:00 STUNNER, 0 Acetaminoph 2019- No Notes: Do Karli emoria en 10-05 not exceed l 17:43: 4 gm/day. (Same as: Tylenol) Dextrose 2019-09 No 12.5 gm, [facility] 50% Syringe 10-05 25 mL, l (D50W) 17:43: Route: [place] 00 IVP, Drug Form: INJ, Dosing Weight 72.727, kg, PRN, PRN Blood Glucose Results, Start date: 08/05/20 11:43:00 STUNNER, Duration: 30 day, Stop date: 09/04/20 11:42:00 STUNNER, 0 Glucagon 2019-1 No 1 mg, [facility] 10-05 Route: IM, l 17:43: Drug form: [facility] 00 PDR/INJ, PRN, Dosing Weight 72.727, kg, PRN Blood Glucose Results, Start date: 08/05/20 11:43:00 STUNNER, Duration: 30 day, Stop date: 09/04/20 11:42:00 STUNNER, 0 Acetaminoph 2020-1 No Notes: Do Karli emoria en 10-05 not exceed l 17:43: 4 gm/day. (Same as: Tylenol) Dextrose 2019-1 No 12.5 gm, [facility] 50% Syringe 1-21 25 mL, l (D50W) 17:43: Route: IVP, Drug Form: INJ, Dosing Weight 72.727, kg, PRN, PRN Blood Glucose Results, Start date: 08/05/20 11:43:00 STUNNER, Duration: 30 day, Stop date: 09/04/20 11:42:00 STUNNER, 0 Glucagon 2020-1 No 1 mg, [facility] 10-05 Route: IM, l 17:43: Drug form: [place] 00 PDR/INJ, PRN, Dosing Weight 72.727, kg, PRN Blood Glucose Results, Start date: 08/05/20 11:43:00 STUNNER, Duration: 30 day, Stop date: 09/04/20 11:42:00 STUNNER, 0 Acetaminoph 2020-1 No Notes: Do Karli emoria en 10-05 not exceed l 17:43: 4 gm/day. (Same as: Tylenol) Dextrose 2019- No 12.5 gm, [facility] 50% Syringe 1-21 25 mL, l (D50W) 17:43: Route: IVP, Drug Form: INJ, Dosing Weight 72.727, kg, PRN, PRN Blood Glucose Results, Start date: 08/05/20 11:43:00 STUNNER, Duration: 30 day, Stop date: 09/04/20 11:42:00 STUNNER, 0 Glucagon 2020-1 No 1 mg, [facility] 10-05 Route: IM, l 17:43: Drug form: [place] 00 PDR/INJ, PRN, Dosing Weight 72.727, kg, PRN Blood Glucose Results, Start date: 08/05/20 11:43:00 STUNNER, Duration: 30 day, Stop date: 09/04/20 11:42:00 STUNNER, 0 Acetaminoph 2020-1 No Notes: Do Karli emoria en 10-05 not exceed l 17:43: 4 gm/day. A[facility] (Same as: Tylenol) Dextrose 2019- No 12.5 gm, [facility] 50% Syringe 1-21 25 mL, l (D50W) 17:43: Route: [place] 00 IVP, Drug Form: INJ, Dosing Weight 72.727, kg, PRN, PRN Blood Glucose Results, Start date: 08/05/20 11:43:00 STUNNER, Duration: 30 day, Stop date: 09/04/20 11:42:00 STUNNER, 0 Glucagon 2019-1 No 1 mg, [facility] 10-05 Route: IM, l 17:43: Drug form: [facility] 00 PDR/INJ, PRN, Dosing Weight 72.727, kg, PRN Blood Glucose Results, Start date: 08/05/20 11:43:00 STUNNER, Duration: 30 day, Stop date: 09/04/20 11:42:00 STUNNER, 0 Acetaminoph 2020-1 No Notes: Do M emoria en 10-05 not exceed l 17:43: 4 gm/day. [place] (Same as: Tylenol) Dextrose 2019-09 No 12.5 gm, [facility] 50% Syringe -21 25 mL, l (D50W) 17:43: Route: [facility] 00 IVP, Drug Form: INJ, Dosing Weight 72.727, kg, PRN, PRN Blood Glucose Results, Start date: 08/05/20 11:43:00 STUNNER, Duration: 30 day, Stop date: 09/04/20 11:42:00 STUNNER, 0 Glucagon 2019-1 No 1 mg, [facility] 10-05 Route: IM, l 17:43: Drug form: [facility] 00 PDR/INJ, PRN, Dosing Weight 72.727, kg, PRN Blood Glucose Results, Start date: 08/05/20 11:43:00 STUNNER, Duration: 30 day, Stop date: 09/04/20 11:42:00 STUNNER, 0 Acetaminoph 2020-1 No Notes: Do M emoria en 10-05 not exceed l 17:43: 4 gm/day. [facility] (Same as: Tylenol) Dextrose 2019-09 No 12.5 gm, Memor ia 50% Syringe 1-21 25 mL, l (D50W) 17:43: Route: [place] 00 IVP, Drug Form: INJ, Dosing Weight 72.727, kg, PRN, PRN Blood Glucose Results, Start date: 08/05/20 11:43:00 STUNNER, Duration: 30 day, Stop date: 09/04/20 11:42:00 STUNNER, 0 Glucagon 2020-1 No 1 mg, Memoria 10-05 Route: IM, l 17:43: Drug form: [place] 00 PDR/INJ, PRN, Dosing Weight 72.727, kg, PRN Blood Glucose Results, Start date: 08/05/20 11:43:00 STUNNER, Duration: 30 day, Stop date: 09/04/20 11:42:00 STUNNER, 0 Acetaminoph 2020-1 No Notes: Do M emoria en 10-05 not exceed l 17:43: 4 gm/day. [place] (Same as: Tylenol) Dextrose 2019-09 No 12.5 gm, Memor ia 50% Syringe 10-05 25 mL, l (D50W) 17:43: Route: Avinash 00 IVP, Drug Form: INJ, Dosing Weight 72.727, kg, PRN, PRN Blood Glucose Results, Start date: 08/05/20 11:43:00 STUNNER, Duration: 30 day, Stop date: 09/04/20 11:42:00 STUNNER, 0 Glucagon 2020-1 No 1 mg, [facility] 10-05 Route: IM, l 17:43: Drug form: Avinash 00 PDR/INJ, PRN, Dosing Weight 72.727, kg, PRN Blood Glucose Results, Start date: 08/05/20 11:43:00 STUNNER, Duration: 30 day, Stop date: 09/04/20 11:42:00 STUNNER, 0 Acetaminoph 2020-1 No Notes: Do M emoria en 10-05 not exceed l 17:43: 4 gm/day. Avinash (Same as: Tylenol) Dextrose 2019- No 12.5 gm, Memor ia 50% Syringe - 25 mL, l (D50W) 17:43: Route: [place] 00 IVP, Drug Form: INJ, Dosing Weight 72.727, kg, PRN, PRN Blood Glucose Results, Start date: 08/05/20 11:43:00 STUNNER, Duration: 30 day, Stop date: 09/04/20 11:42:00 STUNNER, 0 Glucagon 2019-1 No 1 mg, Memoria 10-05 Route: IM, l 17:43: Drug form: [place] 00 PDR/INJ, PRN, Dosing Weight 72.727, kg, PRN Blood Glucose Results, Start date: 08/05/20 11:43:00 STUNNER, Duration: 30 day, Stop date: 09/04/20 11:42:00 STUNNER, 0 Acetaminoph 2019-09 No Notes: Do M emoria en 10-05 not exceed l 17:43: 4 gm/day. (Same as: Tylenol) Dextrose 2019-09 No 12.5 gm, [facility] 50% Syringe 10-05 25 mL, l (D50W) 17:43: Route: IVP, Drug Form: INJ, Dosing Weight 72.727, kg, PRN, PRN Blood Glucose Results, Start date: 08/05/20 11:43:00 STUNNER, Duration: 30 day, Stop date: 09/04/20 11:42:00 STUNNER, 0 Glucagon 2019-09 No 1 mg, Memoria 10-05 Route: IM, l 17:43: Drug form: [place] 00 PDR/INJ, PRN, Dosing Weight 72.727, kg, PRN Blood Glucose Results, Start date: 08/05/20 11:43:00 STUNNER, Duration: 30 day, Stop date: 09/04/20 11:42:00 STUNNER, 0 Acetaminoph 2019-09 No Notes: Do M emoria en 10-05 not exceed l 17:43: 4 gm/day. (Same as: Tylenol) dextroamphe 2019-0 Yes Take by [facility] 6-[facility] ORAL) dextroamphe 2019-0 Yes Take by [facility] 6-20 [facility]. [facility] ([facility] 04 [facility] ORAL) dextroamphe 2019-0 Yes Take by [facility] 6-20 [facility]. [facility] ([facility] 04 [facility] ORAL) dextroamphe 2019-0 Yes Take by [facility] 6-20 [facility]. [facility] ([facility] 04 Center ORAL) sulfamethox Yes 1{tbl} Take 1 Tab [facility] azole-trime 6-19 by mouth ity of thoprim 00:00: every 12 [place] (BACTRIM 00 (twelve) Medical DS) 800-160 hours. Branch mg tablet sulfamethox Yes 1{tbl} Take 1 Tab [facility] azole-trime 6-19 by mouth ity of thoprim 00:00: every 12 [place] (BACTRIM 00 (twelve) Medical DS) 800-160 hours. Branch mg tablet Yes 1 Tab Oral Uni vers VIT-IRON 7-02 DAILY ity of FUMARATE-FA 00:00: [place] 65-1 MG 00 Medical ORAL TAB Branch DOCUSATE Yes 1 Cap Oral Uni vers CALCIUM 240 7-02 QHSPRN ity of MG ORAL CAP 00:00: [place] 00 Medical Branch Yes 1 Tab Oral Uni vers VIT-IRON 7-02 DAILY ity of FUMARATE-FA 00:00: [place] 65-1 MG 00 Medical ORAL TAB Branch DOCUSATE Yes 1 Cap Oral Uni vers CALCIUM 240 7-02 QHSPRN ity of MG ORAL CAP 00:00: [place] 00 [facility] Immunizations Ordered Filled Date Status Comments Source Immunization Name Immunization Name [facility] SARS-CoV-2 2021-10-27 Completed Univer sity of [place] Booster 00:00:00 Semaj MIDDLETON Vaccination (50 Sekou Cancer mcg/0.25 mL) [facility] SARS-CoV-2 2021-10-27 Completed Univer sity of [place] Booster 00:00:00 Semaj MIDDLETON Vaccination (50 Sekou Cancer mcg/0.25 mL) [facility] SARS-CoV-2 2021-10-27 Completed Univer sity of Monovalent Booster 00:00:00 Semaj MIDDLETON Vaccination (50 Sekou Cancer mcg/0.25 mL) [facility] SARS-CoV-2 2020-12-20 Completed Univer sity of Vaccination 00:00:00 [facility] SARS-CoV-2 2020-12-20 Completed Univer sity of Vaccination 00:00:00 Semaj blake [facility] SARS-CoV-2 2020-12-20 Completed Univer sity of Vaccination 00:00:00 Semaj Arshad [facility] Moderna SARS-CoV-2 2020-11-22 Completed Univer sity of Vaccination 00:00:00 [place] MD Sekou Arshad [facility] Moderna SARS-CoV-2 2020-11-22 Completed Univer sity of Vaccination 00:00:00 [place] Sekou Arshad [facility] Moderna SARS-CoV-2 2020-11-22 Completed Univer sity of Vaccination 00:00:00 [place] MD Sapp [facility] HPV9 2019-06-25 Completed University of 00:00:00 [facility] Rho (d) Immune 2009-03-16 Completed University of Globulin 00:00:00 [facility] Rho (d) Immune 2009-03-16 Completed University of Globulin 00:00:00 [facility] Rho (d) Immune 2009-03-16 Completed University of Globulin 00:00:00 [facility] Rho (d) Immune Unknown Completed University of Globulin [facility] HPV9 Unknown Completed [facility] Moderna SARS-CoV-2 Unknown Completed Univer sity of Vaccination [place] MD Sapp [facility] Moderna SARS-CoV-2 Unknown Completed Univer sity of Vaccination [place] [facility] Moderna SARS-CoV-2 Unknown Completed Univer sity of Monovalent Booster [place] Vaccination (50 Sekou Cancer mcg/0.25 mL) [facility] Vital Signs Vital Name Observation Time Observation Value Comments Source Systolic blood 2023-05-09 16:26:04 113 mm[Hg] Univer sity of pressure [facility] Diastolic blood 2023-05-09 16:26:04 76 mm[Hg] Unive rsity of pressure [facility] Heart rate 2023-05-09 16:26:04 92 /min [facility] Body temperature 2023-05-09 16:26:04 36.89 Theresa Univ ersity Marni [facility] Respiratory rate 2023-05-09 16:26:04 15 /min Univ ersity M[facility]i [facility] Oxygen saturation in 2023-05-09 16:26:04 100 /min [facility] Arterial blood by Semaj zamora Pulse oximetry [facility] Center Body height 2023-05-09 16:18:00 [facility] Body weight 2023-05-09 16:18:00 83.4 kg Universi ty of [facility] BMI 2023-05-09 16:18:00 30.45 kg/m2 Universi ty of [facility] Systolic (mm Hg) 2023-04-28 16:44:00 William yeung Avinash Diastolic (mm Hg) 2023-04-28 16:44:00 Mem rociocurry [place] Heart Rate 2023-04-28 16:44:00 [facility] Avinash Height 2023-04-28 16:44:00 5 [ft_i] [facility] Weight 2023-04-28 16:44:00 [facility] A[facility]ash BMI Calculated 2023-04-28 16:44:00 De zapien [place] Systolic blood 2023-01-06 21:24:41 119 mm[Hg] Univer sity of pressure [facility] Diastolic blood 2023-01-06 21:24:41 76 mm[Hg] Unive rsity of pressure [facility] Heart rate 2023-01-06 21:24:41 83 /min Universi ty of [facility] Body temperature 2023-01-06 21:24:41 36.72 Theresa Univ ersity of Sem[facility] Respiratory rate 2023-01-06 21:24:41 16 /min Univ ersity of [facility] Oxygen saturation in 2023-01-06 21:24:41 100 /min University of Arterial blood by Semaj zamora Pulse oximetry [facility] Body weight 2023-01-06 21:19:00 78.3 kg Universi ty of [facility] BMI 2023-01-06 21:19:00 28.59 kg/m2 Universi ty of [facility] Systolic blood 2022-12-27 18:04:00 124 mm[Hg] Univer sity of pressure [facility] Diastolic blood 2022-12-27 18:04:00 79 mm[Hg] Unive rsity of pressure [facility] Heart rate 2022-12-27 18:04:00 81 /min Universi ty of [facility] Body temperature 2022-12-27 18:04:00 37 Theresa Univ ersity of [place] MD [facility] Respiratory rate 2022-12-27 18:04:00 18 /min Univ ersity of Semaj [facility] Body weight 2022-12-27 18:04:00 78.3 kg Universi ty of [place] MD [facility] BMI 2022-12-27 18:04:00 28.59 kg/m2 Universi ty of [place] MD [facility] Systolic blood 2022-12-19 21:37:00 124 mm[Hg] Univer sity of pressure [place] MD [facility] Diastolic blood 2022-12-19 21:37:00 80 mm[Hg] Unive rsity of pressure [facility] Heart rate 2022-12-19 21:37:00 78 /min Universi ty of [place] MD [facility] Body temperature 2022-12-19 21:37:00 36.61 Theresa [facility] ersity [facility] MD [facility] Respiratory rate 2022-12-19 21:37:00 18 /min [facility] [place] ersity of Semaj [facility] Body weight 2022-12-19 21:37:00 78.7 kg Universi ty of [place] MD [facility] BMI 2022-12-19 21:37:00 28.73 kg/m2 Universi ty of [facility] Oxygen saturation in 2022-12-16 13:34:00 98 /min [facility] Arterial blood by Semaj zamora Pulse oximetry [facility] Center Systolic (mm Hg) 2022-04-26 16:27:00 William loyl [place] Diastolic (mm Hg) 2022-04-26 16:27:00 Mem orial Avinash Heart Rate 2022-04-26 16:27:00 [facility] 2022-04-26 16:27:00 De Coronado Height 2022-04-26 16:27:00 162.56 cm [facility] Weight 2022-04-26 16:27:00 [facility] BMI Calculated 2022-04-26 16:27:00 Memrocio al Avinash Systolic (mm Hg) 2022-03-08 16:53:00 William rial Avinash Diastolic (mm Hg) 2022-03-08 16:53:00 Mem orial Avinash Heart Rate 2022-03-08 16:53:00 [facility] [place] Respitory Rate 2022-03-08 16:53:00 Memori al [place] Height 2022-03-08 16:53:00 162.56 cm [facility] [place] Weight 2022-03-08 16:53:00 [facility] [place] BMI Calculated 2022-03-08 16:53:00 Memori al Avinash Systolic (mm Hg) 2022-02-01 16:11:00 William rial [place] Diastolic (mm Hg) 2022-02-01 16:11:00 Mem orial [place] Heart Rate 2022-02-01 16:11:00 [facility] [place] Respitory Rate 2022-02-01 16:11:00 Memori al [place] Height 2022-02-01 16:11:00 162.56 cm [facility] [place] Weight 2022-02-01 16:11:00 [facility] [place] BMI Calculated 2022-02-01 16:11:00 Memori al Avinash Temperature Oral (F) 2020-08-07 21:27:00 98.4 F [facility] [place] Heart Rate 2020-08-07 21:27:00 [facility] Avinash Respitory Rate 2020-08-07 21:27:00 Memori al Avinash Systolic (mm Hg) 2020-08-07 21:27:00 William rial Avinash Diastolic (mm Hg) 2020-08-07 21:27:00 Mem orial [place] Temperature Oral (F) 2020-08-07 16:55:00 98.2 F [facility] Avinash Heart Rate 2020-08-07 16:55:00 [facility] [place] Respitory Rate 2020-08-07 16:55:00 Memori al [place] Systolic (mm Hg) 2020-08-07 16:55:00 William rial Avinash Diastolic (mm Hg) 2020-08-07 16:55:00 Mem orial Avinash Temperature Oral (F) 2020-08-07 13:17:00 98.3 F [facility] Avinash Heart Rate 2020-08-07 13:17:00 [facility] [place] Respitory Rate 2020-08-07 13:17:00 Memori al [place] Systolic (mm Hg) 2020-08-07 13:17:00 William rial Avinash Diastolic (mm Hg) 2020-08-07 13:17:00 Maurice Da Silva Height 2020-08-05 17:04:00 167.64 cm Srini Da Silva Weight 2020-08-05 17:04:00 Srini Da Silva BMI Calculated 2020-08-05 17:04:00 De Coronado Procedures Procedure Date / Time Performing Clinician Source Performed XR CHEST 2 VW 2023-04-18 13:30:00 Roberto [facility] URINE CULTURE 2023-02-07 18:05:37 Kassie [facility] URINALYSIS WITH 2023-02-07 18:05:37 Kassie [facility] MICROSCOPIC IF INDICATED MD Almazan [facility] URINALYSIS MICROSCOPIC 2023-02-07 18:05:37 Dixie Fernando [facility] EXAM [facility] URINE CULTURE 2023-02-07 18:05:37 Kassie [facility] URINALYSIS MICROSCOPIC 2023-02-07 18:05:37 Dixie Fernando [facility] EXAM [facility] URINE CULTURE 2022-12-16 15:19:00 Kassie Dixie [facility] URINALYSIS WITH 2022-12-16 15:19:00 Kassie Dixie [facility] MICROSCOPIC IF INDICATED MD Almazan [facility] URINALYSIS MICROSCOPIC 2022-12-16 15:19:00 Dixie Fernando [facility] EXAM [facility] URINE CULTURE 2022-12-16 15:19:00 Kassie [facility] URINALYSIS MICROSCOPIC 2022-12-16 15:19:00 Dixie Fernando 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 GENOTYPING AND HIGH RISK MD Almazan [facility] URINE CULTURE 2022-09-18 17:14:00 Roberto [facility] URINALYSIS WITH 2022-09-18 17:14:00 Roberto [facility] MICROSCOPIC IF INDICATED MD Almazan [facility] URINALYSIS MICROSCOPIC 2022-09-18 17:14:00 Eva Felton [facility] EXAM [facility] URINE CULTURE 2022-09-18 17:14:00 Roberto [facility] URINALYSIS MICROSCOPIC 2022-09-18 17:14:00 Roberto Eva [facility] [place] EXAM [facility] CT CHEST ABDOMEN PELVIS W 2022-06-21 19:02:35 Dixie [facility] CONTRAST [facility] COMPLETE BLOOD COUNT W/ 2022-06-14 17:53:20 Dixie Fernando [facility] DIFFERENTIAL [facility] COMPREHENSIVE METABOLIC 2022-06-14 17:53:20 Dixie Fernando [facility] PANEL [facility] HEMOGLOBIN A1C 2022-06-14 17:53:20 Kassie Dixie [facility] MAGNESIUM LEVEL 2022-06-14 17:53:20 Kassie [facility] THYROID STIMULATING 2022-06-14 17:53:20 Dixie Fernando [facility] HORMONE [facility] FREE THYROXINE 2022-06-14 17:53:20 Kassie Dixie [facility] Results CBC 2022-06-14 17:53:20 Dixie Fernando [facility] MANUAL DIFFERENTIAL 2022-06-14 17:53:20 Dixie Fernando [facility] GLUCOSE LEVEL 2022-06-14 17:53:20 Kassei [facility] BLOOD UREA NITROGEN 2022-06-14 17:53:20 Dixie eFrnando [facility] ELECTROLYTE PANEL 2022-06-14 17:53:20 Dixie Fernando [facility] SERUM CREATININE 2022-06-14 17:53:20 Dixie Fernando [facility] .GLOMERULAR FILTRATION 2022-06-14 17:53:20 Dixie Fernando [facility] CALCIUM LEVEL TOTAL 2022-06-14 17:53:20 Dixie Fernando [facility] ALBUMIN LEVEL 2022-06-14 17:53:20 Dixie Fernando [place] [facility] ALKALINE PHOSPHATASE 2022-06-14 17:53:20 Dixie Fernando [facility] ALANINE AMINOTRANSFERASE 2022-06-14 17:53:20 Dixie Fernando [facility] ASPARTATE AMINOTRANSFERASE 2022-06-14 17:53:20 [facility] TOTAL PROTEIN 2022-06-14 17:53:20 Dixie Fernando [facility] FRACTIONATED BILIRUBIN 2022-06-14 17:53:20 Dixie Fernando [facility] URINE CULTURE 2022-06-14 17:33:00 Dixie Fernando [facility] URINALYSIS WITH 2022-06-14 17:33:00 Dixie Fernando [facility] MICROSCOPIC IF INDICATED MD Almazan [facility] URINALYSIS MICROSCOPIC 2022-06-14 17:33:00 Dixie Fernando [facility] URINE CULTURE 2022-01-25 16:12:00 Dereck [facility] URINALYSIS WITH 2022-01-25 16:01:00 Hernán Harden [facility] MICROSCOPIC IF INDICATED MD Almazan [facility] URINALYSIS MICROSCOPIC 2022-01-25 16:01:00 Hernán Harden [facility] Plan of Care Planned Activity Planned Date Details Comments Source Future Scheduled 2023-07-15 COVID-19 Vaccination [facility] [place] Test 15:15:11 ( season) [facility] [place] [facility] [code = COVID-19 Center Vaccination ( season)] Future Scheduled 2023-07-13 [facility]FLUENZA VACCINE [facility] Test 23:08:49 (#1) [code = INFLUENZA VACCINE (#1)] Future Scheduled 2023-07-13 COVID[facility]19 [facility] 23:08:49 [code = COVID-19 VACCINE (#1)] Future Scheduled 2023-07-13 [facility] Test 23:08:49 malignant neoplasm of cervix (procedure) [code = 283016405] Future Scheduled 2023-03-07 COVID-19 Vaccination [facility] [place] Test 08:08:43 (4 - Moderna series) MD [place] [code = COVID-19 Center Vaccination (4 - Moderna series)] Future Scheduled 2023-03-01 COVID-19 VACCINE (#1) [facility] Test 05:08:20 [code = COVID-19 VACCINE (#1)] Future Scheduled 2023-03-01 [facility] Test 05:08:20 malignant neoplasm of cervix (procedure) [code = 789816384] Future Scheduled 2023-03-01 IN[facility]ENZA VACCINE [facility] Test 05:08:20 [code = INFLUENZA VACCINE] Future Scheduled 2022-12-31 COVID-19 Vaccination [facility] [place] Test 06:56:32 (4 - Booster for MD [facility] Moderna series) [code Center = COVID-19 Vaccination (4 - Booster for Moderna series)] Future Scheduled 2022-12-23 COVID-19 Vaccination [facility] [place] Test 08:18:08 (4 - Booster for MD [facility] Moderna series) [code Center = COVID-19 Vaccination (4 - Booster for Moderna series)] Future Scheduled 2022-12-22 INFL[facility]ENZA VACCINE [facility] Test 22:55:24 [code = INFLUENZA VACCINE] Future Scheduled 2022-12-22 COVID-19 VACCINE (#1) [facility] Test 22:55:24 [code = COVID-19 VACCINE (#1)] Future Scheduled 2022-12-22 [facility] Test 22:55:24 malignant neoplasm of cervix (procedure) [code = 511259320] Future Scheduled 2022-12-22 INFLUENZA VACCINE [facility] Test 22:55:24 [code = INFLUENZA VACCINE] Future Scheduled 2022-12-22 COVID-19 [facility]ACCINE (#[facility]) [facility] 22:55:24 [code = COVID-19 VACCINE (#1)] Future Scheduled 2022-12-22 [facility] Test 22:55:24 malignant neoplasm of cervix (procedure) [code = 958739438] Future Scheduled COVID-19 VACCINE (1) [facility] [code = COVID-19 VACCINE (1)] Future Scheduled [facility] Test malignant neoplasm of cervix (procedure) [code = 522414558] Future Scheduled INFLUENZA VACCINE [facility] Test [code = INFLUENZA VACCINE] Encounters Start End Encounter Admission Attending Care Care Encounter Source Date/Time Date/Time Type Type Clinicians Facility Department ID 2022-12-23 Outpatient [facility] [id number] [place] 09:51:28 [id number] [facility] 2021-10-18 Outpatient KAYLYN MALCOLM MDA [id number] 10:48:59 PROVIDER Jaime warner 2023-08-01 2023-08-01 Outpatient POLLO TANG [id number] Memoria 11:45:00 11:45:00 07 marlys CamachoAvinash 2023-08-01 2023-08-01 Outpatient [facility] KITTY [id number] Memoria 11:45:00 11:45:00 07 marlys [place] 2023-05-09 2023-05-12 Domonique Sam2.840.1 [id number] [facility] 12:00:00 10:01:57 Maureen 04001.1.1 ity of [place] 3.412.2.7 [place] .3.154541 .8 [facility] 2023-05-09 2023-05-12 Outpatient AUGUSTUS MONTEMAYOR MDA MDA [id number] 11:17:45 10:01:57 MAUREEN warner 2023-05-09 2023-05-09 Travel 1.2.840.1 [id number] [id number] [facility] 00:00:00 00:00:00 76610.1.1 350.1.13.41 ity of 3.412.2.[place]3.698 [place] .3.318269 084.8 MD Calderón8 [facility] 2023-05-08 2023-05-08 Outpatient AUGUSTUS DELEON MDA [facility] [id number] 09:01:48 09:31:12 NIECY Jaime [facility] 2023-05-08 2023-05-08 Telemedicreginaldo Deleon 1.2.840.1 [id number] [facility] 09:00:00 09:31:12 ne Niecy Blake 02999.1.1 ity of 3.412.2.7 [place] .3.879204 MD Calderón8 [facility] 2023-05-08 2023-05-08 Documentat White-Geor 1.2.840.1 [id number] Univers 00:00:00 00:00:00 ion Zenaida tafoya 00274.1.1 i ty of 3.412.2.7 [place] .3.886425 MD Calderón8 [facility] 2023-05-08 2023-05-08 Documentat Dillan, 1.2.840.1 [id number] Univers 00:00:00 00:00:00 ion Klaus K 65127.1.1 it y of 3.412.2.7 [place] .3.362432 MD Calderón8 [facility] 2023-05-08 2023-05-08 Documentat Dillan 1.2.840.1 [id number] Univers 00:00:00 00:00:00 ion Vinnie-Cecil K 15288.1.1 it y of 3.412.2.7 [place] .3.309490 MD Calderón8 [facility] 2023-05-08 2023-05-08 Documentat Dillan 1.2.840.1 [id number] Univers 00:00:00 00:00:00 ion Vinnie-Cecil K 44359.1.1 it y of 3.412.2.7 [place] .3.032796 MD Calderón8 [facility] 2023-04-28 2023-04-29 Outpatient MHIE MNA [id number] Memoria 16:45:00 04:59:59 Neurology 06 l Anny Da Silva 2023-04-28 2023-04-29 Outpatient MHIE MNA [id number] Memoria 16:45:00 04:59:59 Neurology 06 l Anny Da Silva 2023-04-28 2023-04-28 [facility] [id number] 11:45:00 23:59:59 Doc 06 Go 2023-04-28 2023-04-28 Outpatient MHIE MHIE [id number] Memoria 11:45:00 11:45:00 06 marlys Avinash 2023-04-25 2023-04-25 Outpatient AUGUSTUS MCNAIR MDA MDA [id number] 09:06:36 10:10:23 JAMI warner 2023-04-25 2023-04-25 Follow-Up Xu, 1.2.840.1 [id number] [facility] 09:00:00 10:10:23 Jami Madison 26978.1.1 ity of 3.412.2.7 [place] .3.704188 .8 [facility] 2023-04-25 2023-04-25 Travel 1.2.840.1 1.2.624.277 [id number] [facility] 00:00:00 00:00:00 71300.1.1 350.1.13.41 ity of 3.412.2.[place].698 [place] .3.241423 084.8 .8 [facility] 2023-04-21 2023-04-21 Outpatient AUGUSTUS WOODALL MDA MDA [id number] 12:32:53 12:32:53 MIHAELA warner 2023-04-21 2023-04-21 Travel 1.2.840.1 1.2.826.888 [id number] Univers 00:00:00 00:00:00 66438.1.1 350.1.13.41 ity of 3.412.2.[place]3.698 [place] .3.400592 084.8 .8 [facility] 2023-04-18 2023-04-18 Ancillary Eva Felton 1.2.840.1 [id number] [facility] 08:15:00 08:30:00 Procedure 43524.1.1 it y of 3.412.2.7 [place] .3.565630 MD Calderón8 [facility] 2023-04-18 2023-04-18 Outpatient EL LIANGEVA MCGEE MDA MDA [id number] 07:55:37 07:55:37 Jaime o timmy 2023-02-12 2023-02-12 [facility] [id number] [place] 15:40:00 15:40:00 [facility] 2023-02-07 2023-02-07 Outpatient AUGUSTUS MCNAIRKAYLYN MDA [id number] 12:46:37 13:09:22 JAMI warner 2023-02-06 2023-02-06 Jerome Fernando, 1.2.840.1 [id number] Univers 00:00:00 00:00:00 Only Dixie 66666.1.1 ity of 3.412.2.7 [place] .3.152363 MD Calderón8 [facility] 2023-02-06 2023-02-06 Jerome Fernando 1.2.840.1 [id number] Univers 00:00:00 00:00:00 Only Dixie 00762.1.1 ity of 3.412.2.7 [place] .3.050937 MD Hu [facility] 2023-01-06 2023-01-06 Outpatient AUGUSTUS GARCIARAKAYLYN MDA [id number] 16:13:50 16:59:29 CHAPARRITA warner 2023-01-06 2023-01-06 Travel 1.2.840.1 1.2.499.320 [id number] Univers 00:00:00 00:00:00 51908.1.1 350.1.13.41 ity of 3.412.2.[place].698 [place] .3.104759 084.8 MD Hu [facility] 2023-01-06 2023-01-06 Travel 1.2.840.1 1.2.676.549 [id number] Univers 00:00:00 00:00:00 50502.1.1 350.1.13.41 ity of 3.412.2.[place]7.3.698 [place] .3.152430 084.8 MD Hu [facility] 2022-12-27 2022-12-27 Outpatient AUGUSTUS WOODALL MDA MDA [id number] 14:33:38 14:33:38 MIHAELA [facility] 2022-12-27 2022-12-27 Follow-Up Eva Felton 1.2.840.1 [id number] Univers 13:00:00 14:11:00 51504.1.1 ity of 3.412.2.7 [place] .3.001540 MD Hu [facility] 2022-12-27 2022-12-27 Follow-Up Eva Little 1.2.840.1 [id number] Univers 13:00:00 14:11:00 77334.1.1 ity of 3.412.2.7 [place] .3.592293 MD Hu [facility] 2022-12-27 2022-12-27 Travel 1.2.840.1 1.2.261.543 [id number] Univers 00:00:00 00:00:00 56014.1.1 350.1.13.41 ity of 3.412.2.7 [place]7.3.698 [place] .3.325153 084.8 MD Hu [facility] 2022-12-27 2022-12-27 Travel 1.2.840.1 1.2.659.562 [id number] Univers 00:00:00 00:00:00 03081.1.1 350.1.13.41 ity of 3.412.2.[place]7.3.698 [place] .3.871237 084.8 MD Calderón8 [facility] 2022-12-26 2022-12-26 Orders Kassie, 1.2.840.1 [id number] Univers 00:00:00 00:00:00 Only Dixie 69916.1.1 ity of 3.412.2.7 [place] .3.237528 MD Calderón8 [facility] 2022-12-26 2022-12-26 Orders Lisa, 1.2.840.1 [id number] Univers 00:00:00 00:00:00 Only Lelo J 64950.1.1 ity of 3.412.2.7 [place] .3.091030 MD Calderón8 [facility] 2022-12-26 2022-12-26 Orders Kassie, 1.2.840.1 [id number] Univers 00:00:00 00:00:00 Only Dixie 42202.1.1 ity of 3.412.2.7 [place] .3.860813 MD Calderón8 [facility] 2022-12-26 2022-12-26 Orders Lisa, 1.2.840.1 [id number] Univers 00:00:00 00:00:00 Only Lelo J 64973.1.1 ity of 3.412.2.7 [place] .3.800218 MD Calderón8 [facility] 2022-12-23 2022-12-23 Jerome Fernando 1.2.840.1 [id number] Univers 00:00:00 00:00:00 Only Dixie 38554.1.1 ity of 3.412.2.7 [place] .3.432065 MD Calderón8 [facility] 2022-12-23 2022-12-23 Jerome Fernando 1.2.840.1 [id number] Univers 00:00:00 00:00:00 Only Dixie 99905.1.1 ity of 3.412.2.7 [place] .3.885174 MD Calderón8 [facility] 2022-12-19 2022-12-19 Infusion Eva Felton 1.2.840.1 [id number] Univers 15:45:00 16:45:00 Niesha Maldonado 55108.1.1 ity of 3.412.2.7 [place] .3.379676 MD Hu [facility] 2022-12-19 2022-12-19 Infusion EL Eva Felton 1.2.840.1 [id number] Univers 15:45:00 16:45:00 Niesha Maldonado 73563.1.1 ity of 3.412.2.7 [place] .3.558658 MD Hu [facility] 2022-12-19 2022-12-19 Travel 1.2.840.1 1.2.671.719 [id number] Univers 00:00:00 00:00:00 15810.1.1 350.1.13.41 ity of 3.412.2.7 [place]7.3.698 [place] .3.058128 084.8 MD Hu [facility] 2022-12-19 2022-12-19 Orders Lisa, 1.2.840.1 [id number] Univers 00:00:00 00:00:00 Only Lelo Garcia 09387.1.1 ity of 3.412.2.7 [place] .3.010807 MD [facility] 2022-12-19 2022-12-19 Travel 1.2.840.1 1.2.598.759 0261 [id number] Univers 00:00:00 00:00:00 54710.1.1 350.1.13.41 ity of 3.412.2.[place].698 [place] .3.039[place] 084.8 MD [facility] 2022-12-19 2022-12-19 Orders Lisa, 1.2.840.1 [id number] [id number] Univers 00:00:00 00:00:00 Only Lelo Garcia 50456.1.1 ity of 3.412.2.7 [place] .3.993126 MD [facility] 2022-12-18 2022-12-18 Follow-Up Mcnair, 1.2.840.1 [id number] 069 [id number] Univers 11:00:00 12:13:38 Jami Madison 72218.1.1 ity of 3.412.2.7 [place] .3.469799 MD [facility] 2022-12-18 2022-12-18 Follow-Up Mcnair, 1.2.840.1 [id number] Univers 11:00:00 12:13:38 Jami Madison. 73406.1.1 it y of 3.412.2.7 [place] .3.733689 MD [facility] 2022-12-18 2022-12-18 Travel 1.2.840.1 1.2.958.036 5809 [id number] Univers 00:00:00 00:00:00 78590.1.1 350.1.13.41 ity of 3.412.2.[place].698 [place] .[place].2194[place] 084.8 MD [facility] 2022-12-18 2022-12-18 Travel 1.2.840.1 1.2.296.422 0834 048167 Univers 00:00:00 00:00:00 76416.1.1 350.1.13.41 ity of 3.412.2.[place].698 [place] .3.863339 084.8 MD [facility] 2022-12-16 2022-12-16 [facility], 1.2.840.1 [id number] [id number] Univers 10:00:00 23:59:00 Encounter Jami Madison 06156.1.1 i ty of 3.412.2.7 [place] .3.122594 MD [facility] 2022-12-16 2022-12-16 [facility], 1.2.840.1 [id number] [id number] Univers 10:00:00 23:59:00 Erin Jami Lucila 25817.1.1 ity of 3.412.2.7 [place] .3.536666 MD [facility] 2022-12-16 2022-12-16 Outpatient AUGUSTUS WOODALL MDA MDA [id number] 08:25:43 08:25:43 MIHAELA Jaimenatan warner 2022-12-16 2022-12-16 Travel 1.2.840.1 1.2.449.333 5174 [id number] Univers 00:00:00 00:00:00 57567.1.1 350.1.13.41 ity of 3.412.2.7 [place].3.698 [place] .3.228531 084.8 MD [facility] 2022-12-16 2022-12-16 Travel 1.2.840.1 1.2.641.853 9694 [id number] Univers 00:00:00 00:00:00 20568.1.1 350.1.13.41 ity of 3.412.2.7 [place].698 [place] .3.615164 084.8 MD [facility] 2022-12-13 2022-12-13 Jerome Fernando, 1.2.840.1 [id number] Univers 00:00:00 00:00:00 Only Dixie 35007.1.1 ity of 3.412.2.7 [place] .3.107570 MD [facility] 2022-12-13 2022-12-13 Jerome Fernando 1.2.840.1 [id number] Univers 00:00:00 00:00:00 Only Dixie 99987.1.1 ity of 3.412.2.7 [place] .3.592728 MD [facility] 2022-12-06 2022-12-06 Outpatient AUGUSTUS WOODALL MDA MDA [id number] 10:23:21 10:23:21 MIHAELA Jaimenatan warner 2022-12-06 2022-12-06 Travel 1.2.840.1 1.2.866.388 3284 [id number] Univers 00:00:00 00:00:00 19179.1.1 350.1.13.41 ity of 3.412.2.[place]3.698 [place] .3.128[place] 084.8 MD [facility] 2022-12-06 2022-12-06 Travel 1.2.840.1 1.2.816.964 5677 [id number] Univers 00:00:00 00:00:00 51435.1.1 350.1.13.41 ity of 3.412.2.7 [place].3.698 [place] .3.893318 084.8 MD Calderón8 [facility] 2022-11-22 2022-11-22 Outpatient AUGUSTUS WOODALL MDA MDA [id number] 09:30:09 09:30:09 MIHAELA Jaimenatan warner 2022-11-22 2022-11-22 Travel 1.2.840.1 1.2.436.807 2121 [id number] [facility] 00:00:00 00:00:00 83427.1.1 350.1.13.41 ity of 3.412.2.7 [place].3.698 [place] .3.098463 084.8 MD [facility] 2022-11-22 2022-11-22 Travel 1.2.840.1 1.2.584.954 2643 [id number] [facility] 00:00:00 00:00:00 44233.1.1 350.1.13.41 ity of 3.412.2.7 [place]7.3.698 [place] .3.185518 084.8 MD Calderón8 [facility] 2022-11-15 2022-11-15 Outpatient AUGUSTUS WOODALL MDA MDA [id number] 09:40:12 10:05:19 MIHAELA warner 2022-11-15 2022-11-15 Travel 1.2.840.1 1.2.471.639 2767 [id number] Univers 00:00:00 00:00:00 55598.1.1 350.1.13.41 ity of 3.412.2.[place].3.698 [place] .3.806718 084.8 MD [facility] 2022-11-15 2022-11-15 Travel 1.2.840.1 1.2.364.356 8366 [id number] Univers 00:00:00 00:00:00 84216.1.1 350.1.13.41 ity of 3.412.2.[place].3.698 [place] .3.634300 084.8 MD [facility] 2022-11-08 2022-11-08 Telemedici Adrienne, 1.2.840.1 [id number] Univers 09:00:00 09:19:47 brittni Blake 31577.1.1 ity of 3.412.2.7 [place] .3.189780 MD [facility] 2022-11-08 2022-11-08 Telemedici AUGUSTUS Deleon, 1.2.840.1 [id number] Univers 09:00:00 09:19:47 ne Niecy Blake 85899.1.1 ity of 3.412.2.7 [place] .3.679741 MD [facility] 2022-10-15 2022-10-15 Eva Little 1.2.840.1 [id number] 11 [id number] Univers 00:00:00 00:00:00 Only 75000.1.1 ity of 3.412.2.7 [place] .3.771743 MD [facility] 2022-10-15 2022-10-15 Eva Little 1.2.840.1 [id number] 11 [id number] Univers 00:00:00 00:00:00 Only 47291.1.1 ity of 3.412.2.7 [place] .3.370804 MD [facility] 2022-09-22 2022-09-22 Eva Gupta 1.2.840.1 [id number] Univers 00:00:00 00:00:00 74520.1.1 ity of 3.412.2.7 [place] .3.931144 MD Calderón8 [facility] 2022-09-22 2022-09-22 Orders RobetroJeaniena 1.2.840.1 [id number] Univers 00:00:00 00:00:00 Only 93583.1.1 ity of 3.412.2.7 [place] .3.370372 MD Calderón8 [facility] 2022-09-22 2022-09-22 Telephone Roberto Eva 1.2.840.1 [id number] Univers 00:00:00 00:00:00 00244.1.1 ity of 3.412.2.7 [place] .3.395663 MD Calderón8 [facility] 2022-09-22 2022-09-22 Eva Little 1.2.840.1 [id number] 11 [id number] Univers 00:00:00 00:00:00 Only 83827.1.1 ity of 3.412.2.7 [place] .3.532934 MD Calderón8 [facility] 2022-09-20 2022-09-20 Infusion Eva Felton 1.2.840.1 [id number] 1 [id number] Univers 15:45:00 17:23:52 Catherine Camarillo 71567.1.1 ity of 3.412.2.7 [place] .3.578664 MD [facility] 2022-09-20 2022-09-20 Infusion EL Eva Felton 1.2.840.1 [id number] 1 [id number] Univers 15:45:00 17:23:52 Catherine Camarillo 99639.1.1 ity of 3.412.2.7 [place] .3.266897 MD Calderón8 [facility] 2022-09-20 2022-09-20 Travel 1.2.840.1 1.2.605.629 7044 [id number] Univers 00:00:00 00:00:00 48323.1.1 350.1.13.41 ity of 3.412.2.7 [place].3.698 [place].956800 084.8 MD [facility] 2022-09-20 2022-09-20 Eva Little 1.2.840.1 [id number] 11 [id number] Univers 00:00:00 00:00:00 Only 66028.1.1 ity of 3.412.2.7 [place] .3.797654 MD [facility] 2022-09-20 2022-09-20 Travel 1.2.840.1 1.2.038.536 6509 [id number] Univers 00:00:00 00:00:00 43511.1.1 350.1.13.41 ity of 3.412.2.7 [place].3.698 [place] .3.209804 084.8 MD [facility] 2022-09-20 2022-09-20 Eva Little 1.2.840.1 [id number] 11 [id number] Univers 00:00:00 00:00:00 Only 87796.1.1 ity of 3.412.2.7 [place] .3.017489 MD [facility] 2022-09-19 2022-09-19 Eva Little 1.2.840.1 [id number] 11 [id number] Univers 00:00:00 00:00:00 Only 20774.1.1 ity of 3.412.2.7 [place] .3.711215 MD [facility] 2022-09-19 2022-09-19 Eva Little 1.2.840.1 [id number] 11 [id number] Univers 00:00:00 00:00:00 Only 95493.1.1 ity of 3.412.2.7 [place] .3.742986 MD [facility] 2022-09-18 2022-09-18 Follow-Up Jami Mcnair 1.2.840.1 1020 [id number] [id number] Univers 10:30:00 11:32:44 Eva Felton 77193.1.1 ity of 3.412.2.7 [place] .3.940956 MD Calderón8 [facility] 2022-09-18 2022-09-18 Follow-Up Jami Esposito. 1.2.840.1 102 [id number] Univers 10:30:00 11:32:44 Eva Felton 20097.1.1 ity of 3.412.2.7 [place] .3.308460 MD Calderón8 [facility] 2022-09-18 2022-09-18 Outpatient EVA LITTLE MDA MDA [id number] 11:11:03 11:30:50 [facility] 2022-09-18 2022-09-18 Travel 1.2.840.1 1.2.257.704 6736 [id number] Univers 00:00:00 00:00:00 57485.1.1 350.1.13.41 ity of 3.412.2.[place].3.698 [place] .3.360343 084.8 MD Calderón8 [facility] 2022-09-18 2022-09-18 Travel 1.2.840.1 1.2.454.007 5318 [id number] Univers 00:00:00 00:00:00 24382.1.1 350.1.13.41 ity of 3.412.2.7 [place]7.3.698 [place] .3.833223 084.8 MD Calderón8 [facility] 2022-08-12 2022-08-12 Outpatient Hayden OBRIEN [facility] [id number] Univers 09:45:00 09:45:[address] [facility] 2022-07-01 2022-07-01 Ambulatory nullFlavo MNA [id number] Memoria 14:15:00 14:15:00 Pre-Reg r Neurology 05 l Anny Da Silva 2022-07-01 2022-07-01 Ambulatory nullFlavo MNA [id number] [facility] 14:15:00 14:15:00 Pre-Reg r Neurology 05 l Anny Da Silva 2022-07-01 2022-07-01 Outpatient KITTY TANG [id number] 09:15:00 09:15:00 05 marlys Da Silva 2022-07-01 2022-07-01 Outpatient Belkis LAVELLE [facility] [id number] 09:15:00 09:15:00 Doc Stiles 2022-06-21 2022-06-21 Ancillary AUGUSTUS Mcnair, 1.2.840.1 [id number] [facility] 12:20:00 14:45:00 Procedure Jami Gaytan 67222.1.1 ity of 3.412.2.7 [place] .3.378690 MD Calderón8 [facility] 2022-06-21 2022-06-21 Travel 1.2.840.1 1.2.742.714 5414 [id number] [facility] 00:00:00 00:00:00 25051.1.1 350.1.13.41 ity of 3.412.2.7 [place].3.698 [place] .3.110483 084.8 MD Mayte warner [facility] 2022-06-17 2022-06-17 Outpatient AUGUSTUS ORELLANA MDA MDA [id number] 16:01:37 16:01:37 CHAPARRITA warner 2022-06-17 2022-06-17 Travel 1.2.840.1 1.2.720.303 7344 [id number] [facility] 00:00:00 00:00:00 33025.1.1 350.1.13.41 ity of 3.412.2.7 [place]7.3.698 [place] .3.6532[place] 084.8 MD [facility] 2022-06-14 2022-06-14 Outpatient AUGUSTUS MCNAIR MDA MDA [id number] 12:32:49 12:53:45 JAMI warner 2022-06-14 2022-06-14 Outpatient AUGUSTUS MCNAIR MDA MDA [id number] 12:30:07 12:53:40 JAMI warner 2022-06-14 2022-06-14 Office Eva Little 1.2.840.1 [id number] [facility] 11:30:00 12:26:55 Visit 10626.1.1 ity of 3.412.2.7 [place] .3.384980 .8 [facility] 2022-06-14 2022-06-14 Travel 1.2.840.1 1.2.214.802 2924 [id number] [facility] 00:00:00 00:00:00 02722.1.1 350.1.13.41 ity of 3.412.2.7 [place].3.698 [place] .3.440414 084.8 .8 [facility] 2022-06-12 2022-06-12 Ambulatory nullFlavo MNA [id number] Memoria 15:30:00 15:30:00 Pre-Reg r Neurology 04 l Bl[place] 2022-06-12 2022-06-12 Ambulatory nullFlavo MNA [id number] Memoria 15:30:00 15:30:00 Pre-Reg r Neurology 04 l Anny [place] 2022-06-12 2022-06-12 Outpatient MHIE KITTY [id number] Memoria 10:30:00 10:30:00 04 marlys [place] 2022-06-12 2022-06-12 [facility] [id number] 10:30:00 10:30:00 Doc Stiles 2022-05-23 2022-05-23 Outpatient AUGUSTUS MCNAIR MDA MDA [id number] 09:08:34 09:08:42 JAMI warner 2022-05-22 2022-05-22 Outpatient AUGUSTUS ORELLANA MDA MDA [id number] 13:52:27 16:01:28 CHAPARRITA warner 2022-05-22 2022-05-22 Travel 1.2.840.1 1.2.680.032 4749 [id number] [facility] 00:00:00 00:00:00 91181.1.1 350.1.13.41 ity of 3.412.2.7 [place].3.698 [place] .3.785417 084.8 MD Calderón8 [facility] 2022-05-17 2022-05-17 Nutrition Niecy Weir 1.2.840.1 10 [id number] Univers 10:00:00 10:59:02 Ashlee Kuo 57425.1.1 ity of 3.412.2.7 [place] .3.856142 MD Calderón8 [facility] 2022-05-07 2022-05-07 Telemedici AUGUSTUS LiangEva mcgee 1.2.840.1 [id number] Univers 09:00:00 09:39:05 ne Niecy Deleon 40467.1.1 ity of 3.412.2.7 [place] .3.245883 MD Calderón8 [facility] 2022-05-07 2022-05-07 Social [place] 1.2.840.1 [id number] Univers 00:00:00 00:00:00 Work Monica Calvillo 05267.1.1 it y of 3.412.2.7 [place] .3.544467 MD Calderón8 [facility] 2022-05-02 2022-05-02 Telemedici Eva Little 1.2.840.1 [id number] Univers 10:30:00 11:00:00 brittni 02068.1.1 ity of 3.412.2.7 [place] .3.510078 MD Calderón8 [facility] 2022-04-26 2022-04-27 Outpatient nullFlavo MNA [id number] Memoria 16:15:00 04:59:59 r Neurology 03 l Anny Da Silva 2022-04-26 2022-04-27 Outpatient nullFlavo MNA [id number] Memoria 16:15:00 04:59:59 r Neurology 03 l Anny Da Silva 2022-04-26 2022-04-26 [facility] [id number] 11:15:00 23:59:59 Doc 03 Go 2022-04-26 2022-04-26 Outpatient MHIE MHIE [id number] Memoria 11:15:00 11:15:00 03 marlys Avinash 2022-03-15 2022-03-15 Office Jami Esposito 1.2.840.1 [id number] Univers 09:30:00 10:30:34 Visit Eva Felton 86018.1.1 ity of 3.412.2.7 [place] .3.289140 .8 [facility] 2022-03-15 2022-03-15 Travel 1.2.840.1 1.2.872.592 0463 [id number] Univers 00:00:00 00:00:00 91265.1.1 350.1.13.41 ity of 3.412.2.[place]3.698 [place] .3.154995 084.8 .8 [facility] 2022-03-08 2022-03-09 Outpatient nullFlavo MNA [id number] Memoria 16:30:00 04:59:59 r Neurology 02 marlys Anny Da Silva 2022-03-08 2022-03-09 Outpatient nullFlavo MNA [id number] Memoria 16:30:00 04:59:59 r Neurology 02 marlys Anny Da Silva 2022-03-08 2022-03-08 Outpatient ARIELA Tamayo [facility] [id number] 11:30:00 23:59:59 Doc Yaneth Stiles 2022-03-08 2022-03-08 Ambulatory nullFlavo MNA [id number] Memoria 16:30:00 16:30:00 Pre-Reg r Neurology 01 marlys Anny Da Silva 2022-03-08 2022-03-08 Ambulatory nullFlavo MNA [id number] Memoria 16:30:00 16:30:00 Pre-Reg r Neurology 01 l Anny Da Silva 2022-03-08 2022-03-08 Outpatient MHIE IE [id number] Memoria 11:30:00 11:30:00 02 marlys Da Silva 2022-03-082022-03-08 Outpatient KITTY TANG [id number] Memoria 11:30:00 11:30:00 01 marlys Avinash 2022-03-08 2022-03-08 [facility] [id number] 11:30:00 11:30:00 Doc 01 Go 2022-02-01 2022-02-02 Outpatient nullFlavo MNA [id number] Memoria 16:00:00 04:59:59 r Neurology 00 l Anny [place] 2022-02-01 2022-02-02 Outpatient nullFlavo MNA [id number] Memoria 16:00:00 04:59:59 r Neurology 00 l Anny Da Silva 2022-02-01 2022-02-01 Out[facility] [id number] 11:00:00 23:59:59 Doc 00 Go 2022-02-01 2022-02-01 Outpatient KITTY TANG [id number] Memoria 11:00:00 11:00:00 00 marlys Da Silva 2022-01-25 2022-01-25 Outpatient AUGUSTUS HARDEN MDA MDA [id number] 11:00:54 11:00:54 HERNÁN warner 2022-01-25 2022-01-25 Jerome Harden 1.2.840.1 [id number] Univers 00:00:00 00:00:00 Only Hernán 52592.1.1 ity of 3.412.2.7 [place] .3.333705 MD uH [facility] 2022-01-24 2022-01-24 Adán Engel.2.840.1 [id number] Univers 00:00:00 00:00:00 Only Hernán 57301.1.1 ity of 3.412.2.7 [place] .3.272289 MD [facility] Leonard 2021-12-21 2021-12-21 Outpatient EVA LITTLE MDA, MDA [id number] 14:30:28 14:38:18 Jaime warner 2021-12-14 2021-12-14 Outpatient AUGUSTUS HARDEN MDA MDA [id number] 14:04:41 14:04:41 HERNÁN Alleners o timmy 2021-11-21 2021-11-21 Outpatient EL XU, MDA MDA [id number] MD 14:06:56 14:58:25 JAMI Jaime o n 2021-11-13 2021-11-13 Outpatient EL XU, MDA MDA [id number] MD 09:10:26 10:11:53 JAMI Sandoval o n 2021-11-13 2021-11-13 Outpatient EL DERECK, MDA MDA [id number] MD 09:21:34 09:21:34 HERNÁN Alleners o n 2021-11-06 2021-11-09 Inpatient UR DUNIA, MDA [employer] [id number] MD 05:38:00 18:27:00 SANTA Riley so n 2021-11-05 2021-11-05 Outpatient AUGUSTUS MCNAIR, MDA MDA [id number] MD 12:57:11 12:57:11 JAMI Sandoval o timmy 2021-11-05 2021-11-05 Outpatient EL DERECK, MDA MDA [id number] 09:00:18 09:00:18 HERNÁN Alleners o timmy 2021-11-02 2021-11-02 Outpatient EL DERECK, MDA MDA [id number] 14:17:15 14:17:15 HERNÁN Alleners o timmy 2021-11-02 2021-11-02 Outpatient EL DERECK, MDA MDA [id number] MD 11:56:30 12:34:16 HERNÁN Alleners o timmy 2021-11-02 2021-11-02 Outpatient EL DERECK, MDA MDA [id number] 08:29:44 08:43:46 HERNÁN Alleners o timmy 2021-11-02 2021-11-02 Outpatient EL DERECK, MDA MDA [id number] MD 08:11:05 08:25:44 HERNÁN Alleners o timmy 2021-10-27 2021-10-27 Outpatient EL MDA MDA [id number] MD 09:43:04 09:43:04 Jaime o timmy 2021-10-26 2021-10-26 Outpatient EL DERECK, MDA MDA [id number] MD 07:13:10 07:13:10 HERNÁN Alleners o timmy 2021-10-26 2021-10-26 Outpatient EL DERECK, MDA MDA [id number] 07:12:51 07:12:51 HERNÁN warner 2021-10-19 2021-10-19 Outpatient AUGUSTUS HARDEN MDA MDA [id number] MD 10:38:29 12:39:45 HERNÁN warner 2021-10-19 2021-10-19 Outpatient AUGUSTUS MCNAIR MDA MDA [id number] 09:39:33 09:39:33 JAMI warner 2021-10-19 2021-10-19 Outpatient AUGUSTUS MDA MDA [id number] 09:37:10 09:37:18 Jaime warner 2020-12-20 2020-12-20 Outpatient Hayden FIOR, [facility] [id number] Univers 16:20:00 16:20:00 JOSHUA [facility] 2020-11-22 2020-11-22 Outpatient [facility] [id number] Univers 16:40:00 16:40:00 [facility] 2020-10-24 2020-10-24 Telephone JESSICA Lozada 1.2.840.114 [id number] 00:00:00 00:00:00 Anibal KYLEE 350.1.13.10 [facility] 4.2.7.2.686 [id number] [facility] 2020-10-24 2020-10-24 Telephone JESSICA Lozada 1.2.840.114 [id number] Univers 00:00:00 00:00:00 Anibal KYLEE 350.1.13.10 [facility] 4.2.7.2.686 Prabhu as [phone] [address] 2020-10-23 2020-10-23 Outpatient Hayden TROY, [facility] [id number] Univers 17:00:00 18:27:07 CASTRO [facility] 2020-08-05 2020-08-07 Inpatient nullFlavo [facility] [id number] Memoria 16:52:00 22:30:[address] 2020-08-05 2020-08-07 [facility] [id number] Memoria 16:52:00 22:30:[address] 2020-08-05 2020-08-07 Outpatient [facility] [id number] 10:52:00 16:30:00 Shelley 26 onna 2020-07-27 2020-07-27 Patient Doctor JESSICA 1.2.840.114 [id number] Univers 00:00:00 00:00:00 Secure Msg Unassigned, KYLEE 350.1.13.10 ity of [facility] 4.2.7.2.686 Prabhu as [phone] [address] 2020-07-26 2020-07-26 Outpatient R [facility] [id number] Univers 17:20:00 17:20:00 ity of [facility] 2020-07-26 2020-07-26 Laboratory Lab, [facility] 1.2.840.114 [id number] 09:02:18 09:22:18 Only Fam Pob I Health 350.1.13.10 [place] 4.2.7.2.686 Professio [phone] [place] [address] Office Building [facility] 2020-07-26 2020-07-26 Laboratory Lab, [facility] Fam Pob I [facility] 1.2. 840.114 [id number] Univers 09:02:18 09:22:18 Only Lucita Hickman A Health 350.1.13.10 ity of [place] 4.2.7.2.686 Prabhu as Professio [phone] [address] Office Building [facility] 2020-07-26 2020-07-26 Letter Pcp, [facility] 1.2.840.114 [id number] 00:00:00 00:00:00 (Out) Patient Health 350.1.13.10 Does Not [place] 4.2.7.2.686 Have A Professio [phone] [place] [address] Office Building [facility] 2020-07-26 2020-07-26 Letter Pcp, [facility] 1.2.840.114 [id number] Univers 00:00:00 00:00:00 (Out) Patient Health 350.1.13.10 it y of Does Not [place] Professio [phone] [address] Office Building [facility] 2009-03-14 2009-03-16 Inpatient O ALEIDA HOUSE [facility] RANDALL [id number] Univers 18:53:00 15:30:00 ALEIDA HOUSE 8 [facility] Results Test Description Test Time Test Comments Results Result Comments Source Urinalysis Microscopic Exam 2022-12-16 16:05:24 Test Item Value Reference Range Interpretation Comme nts UA WBC (test code = See_Comment Some rep orting parameters 19585-4) within the Urin alysis test have changed du e to the implementation of new instrumentation in the [facility], allowin g greater sensitivity of measurement. Urinalysis resu lts reported by the [facility] Centers using e xisting instrumentation , as well as Urinalysis test ing performed manua lly or by backup raul feldman at the [facility] shawn l remain relatively unch anged. New reporting broderick eters and units will not be reported for all campuse s. [Automated mess age] The system which Credii nerated this result transmit jeremías reference range : 0 - 2 /HPF. The refer ence range was not used to interpret this result as normal/abnormal . UA RBC (test code = 12 See_Comment H [Automa jeremías message] The 48166-5) system which Credii nerated this result transmit jeremías reference range : 0 - 2 /HPF. The refer ence range was not used to interpret this result as normal/abnormal . UA Mucous (test code = NOT SEEN Not Seen-Trace /HPF 80413-0) UA Bacteria (test code = OCC NOT SEEN /HPF A 37876-4) UA Squam Epi (test code = 1+ None-Occasional /HPF A 81146-1) Lab Interpretation (test Abnormal code = 44721-8) [facility] 16:05:24 Test Item Value Reference Range Interpretation Comments UA WBC (test code = See_Comment Some rep orting 17463-4) parameters with in the Urinalysis test have changed due to the implementation of new instrumentation in the [facility], al lowing greater sensiti vity of measurement. Urinalysis resu lts reported by the [facility] C enters using existing instrumentation , as well as Urinaly sis testing perform ed manually or by backup methodology at the [facility] shawn l remain relative ly unchanged. New reporting broderick eters and units will not be reported for al l campuses. [Auto mated message] The sy stem which generated this result transmit jeremías reference range : 0 - 2 /HPF. The refer ence range was not u sed to interpret this result as normal/abnor mal. UA RBC (test code = 12 See_Comment H [Automa jeremías message] 89752-2) The system [employer]Spot generated this result transmitted ref erence range: 0 - 2 /H PF. The reference range was not used to int erpret this result as normal/abnormal . UA Mucous (test code = NOT SEEN Not Seen-Trace 47280-3) /HPF UA Bacteria (test code OCC NOT SEEN /HPF A = 44036-1) UA Squam Epi (test 1+ None-Occasional A code = 06291-4) /HPF Lab Interpretation Abnormal (test code = 09833-2) [facility] Unyuhkfvh3631-53-10 15:42:14 Test Item Value Reference Range Interpretation Comments UA Color (test code = Yellow Straw-Yellow 47420-4) UA Appear (test code = Clear Clear 99530-5) UA Glucose (test code = NEG NEG mg/dL 5792-7) UA Bili (test code = NEG NEG 5770-3) UA Ketones (test code = NEG NEG mg/dL 5797-6) UA Spec Grav (test code = 1.034 1.003-1.035 5810-7) UA Blood (test code = Moderate NEG A 5794-3) UA pH (test code = 5803-2) 6.0 5.0-9.0 UA Protein (test code = 20 mg/dL NEG A 5804-0) UA Urobilinogen (test code 1+ NEG A = 5818-0) UA Nitrite (test code = NEG NEG 5802-4) UA Leuk Est (test code = NEG NEG 5799-2) CARLOS (test code = CARLOS) cup is empty can NOT add on tests.12/16/2022 10:22:33 AM CDT Lab Interpretation (test Abnormal code = 65008-3) [facility] Xyccxjwry5853-47-17 15:42:14 Test Item Value Reference Range Interpretation Comments UA Color (test code = Yellow Straw-Yellow 20283-9) UA Appear (test code = Clear Clear 78470-6) UA Glucose (test code = NEG NEG mg/dL 5792-7) UA Bili (test code = NEG NEG 5770-3) UA Ketones (test code = NEG NEG mg/dL 5797-6) UA Spec Grav (test code = 1.034 1.003-1.035 5810-7) UA Blood (test code = Moderate NEG A 5794-3) UA pH (test code = 5803-2) 6.0 5.0-9.0 UA Protein (test code = 20 mg/dL NEG A 5804-0) UA Urobilinogen (test code 1+ NEG A = 5818-0) UA Nitrite (test code = NEG NEG 5802-4) UA Leuk Est (test code = NEG NEG 5799-2) CARLOS (test code = CARLOS) cup is empty can NOT add on tests.12/16/2022 10:22:33 AM CDT Lab Interpretation (test Abnormal code = 44331-9) [facility] [employer] Interpretation 2022-09-20 21:17:10 Test Item Value Reference Range Interpretation Comments Gross Description [id number] (test code = qBI8lwUhmePe4qWkgPRBvfv [id number]) H9cNMqQZrsv9qqURM0y9vnk iYQBdlwYLUdWF1nUKzfNCQp XU2vSaQeALCnZmIhINLlfLC urfVfZtKlPNPutWWuaKU9MV FoRF7plypjPPxqNGdhSBBjv jY0BCTpxFFuB5XuQDNuCL4x lvpzWHZ6RPQOBnltPk7prBV ibHtcZjFcZmNoYXJzZXQwXG XrkUdmIVFlRBx0eL9RBlixI 07ds7O7Hei5IGKyQJSdK7Fj LS1zBJJtpKJdP80FQifmHTM 2ZTXYIxfaInrhwAxqn6HqaC BcXHNnIFxcaWQgNTEwMDAgX FxkYiBPVlIgIiAxMTYwNDk5 OoP8FGj9RAYXZCPkYsJ1MUI 7PUA3MQs9GCQgBI7sZKbzjC BgTVjyPghuCBgiN686AXfqE SJrC3KxY9SjJYobShJdBNbh FZJiHNDiWHdqYDYbK3WZRNQ nROF2FVI2GCZnYKk6DMrcP5 GLHACoDLW3TiV7OMK2SkA2A Jn9YJHWIj3jBXPfKoM4ZFH8 PxU7RLP7DyTsBG1oPSwkkXX fPXjsm9XkQxZfRNPfLFwldd J0IXVvxyYuROfneJnniK6uA THcS80nl4BOr9EjRM7ZNMd9 rqZldwaznX6pNEOhudMuk9D zMFxlcGljWHNhMzAgDQpcbH BxE3fpC0LpANAoGtSvMPZNl YtkROSztER6vMHvDLAyN4Li stDgXXkxf2OnZIFiyAGMa5M wVA9EXUJphWANTFW5GA3bZK pdDIQiL9GbR8RoxvA7a7mtj Wycw7FpvAFyWU3rwQJtSZ8U KXSxUMxsAX1QmT== Specimen Information d6ytuLCqIIUywKSmQtDrVAT (test code = 47561) gLETdi5jmGBDwvYAoZaUmSl NcZnRuYmpcdWMxXGRlZmYwe 1fer530yBObn7lhMYFaBxJ8 yVNmYDTubKIjZ038PQRhBUz ro6vca7ToMYBcoNWds6O2XZ OFoypabFx4h5xdIoLbQy8po MMSh3NgdSWnQX9gqlk8vZwp M06ur2I3VlmvT8ubNPVzJDI zK7WnZV4lNOEcHwa8TKQ2YV M7RPDhNTSlX0CiYZ9vXJHza WUwIDtccmVkMFxncmVlbjBc Eke3REQ8SXB5ITVaZXTaINv gpvEmhpDqNta3GBZfFHU7LH ByXNX2KAzascMddzPiVyj5N TJrN417PFA9oJixd3xjPLQ9 AWZuOHJsYlApRg3ffXFjS31 4GXFgYBZKOPJmzDu7BSZsnb DmnrLlxQGLk783Z660MBWuC WZbXIc6CrBXLAIkaiw4qG7u VQTyms16mHqxayQkt69ehZE yXGxpMzYwIERlZmluaXRpb2 6gBIkzoTu4r6thmiCowDRJA LDjvkt1fG7qZ701ECB9ZJKx GLy5LDtnnLIirB7hiEQ4FEr xXGZzNDhcYlxzYjEwMFxzYT QqMBfllTMwa2H8fVuaKBijr gGcQPfjIHZdoeHLMMs2y2qx IwekytQ2tDGek2G2aTmcBUn yrgIhZyapwxH1CZMtw8ClRD Vyo8AbPAXwe4mhCH97kWxhu gNzVNKsnYIeq3GlsC1hXCM3 jObnzmfwp14jhPKsKD24cPk pbmVsZXZlbDNcZnMyOFxiXH NiMTAwXHNhMTAwXHNsMFxvd SCvlR7gyKQ2FOblQYzwPKBx QEwrI493JFE8ATKkNIu8KVq kaTXnwO2ckEN2WJx3YXPrDk RcYlxzYjEwMFxzYTEwMFxzb TVpp7G8kDhwUWudjuUbUOpi JPMivzBOOTs6h8pjNOrcgsF 2wISwv1L1xLttPGzpooBnWH gdauFoOAXdq5FmINGev3SvE LOvq0ekTC93eOppmtSgPVQe nFFqa9TutX8tRBN6wXtyioG uGJSzATg2OAggcDPtaG5kxL N6ENf8ZOCnKQHaOxaqNpYwC DtbDVPwSKkapHRsk6U4uHsm ZWxldmVsNlxrZWVwbiBINjt 7d2mqMQRtw34hfYErKNwkKL ZhlsOugos2p4mcIDFtt28so HQwXGxpMzYwXHJpMzYwXHNi MTAwXHNhMTAwXHNsMCBCbG9 ym9O3o6CvB050KRExHOCbbA YQXASYL507ZNCpPFKuClLwN dDsMYGKM8DWA020HSGuZEWb hNcjTRKlVZNiHZorCZ5bnVH cuZU0yWegU8ZkYgh5pDaxYp UrUBgmZEEtqH3fV073ASSxW NpdtTaaS2K5YLCfgDusp7Ak JLguGHUnmU8oF026JWNmOCr cZjJcZnMyMFxiIEtleWJvYX QeA197TQNhZSjqimF1cIArC gMiVxYkRTu0iPCtfGj1FUya xKmaYPO1TTD5Bxr7X4y2jGW 9LjAshLa3Nlp4EXM1EGn3DH c0lXW3MJDgfOp7DbfbJFN8S GWdNVn9gGk9GVLlp7GqOQPh KRcjmEQqRDKlUb2vdJU0vPW rR895MUYyAGwhiiJ9uIXuLs JkCwTrPxq1QSDxXIZ2KDFaK VAnIvhgeeXzX2PoQWFxJHzt Km06oA5dYX5gZATaum12lTt ohaEqKOXlNFk5CRypOStltt K8QRXhOpUqcxYvJvNssxUuO KPdIWNqDtEvlDPvqd3Wn6Aq m2LkFp7zmAd4l9ikezTmDTK lKRTlxZDgZDn9q8vrpiTfWI QoE0Srb74gR979WVUeAoVjS wIySqQxEDUNzZUzl5YawLTt K082QQLxOdDujRECDTUqJKD uUWn7z2fiyyI3RCMrH9N4QE bTKJbzBHChu8NjY715IITxF rewzvRYj03qJI62D335c8ds HFZthvXbeObGhcxfy5uaO84 9XHBhcGVydzEyMjQwXHBhcG OiiCZ9KPUeFX1hcsnoZRyyR ExeJQZprpO9UIJvkRKfY4Eo LCHaFF1ptaaeFTM6XEstCNN pOSD5FcPiGFGfq9Daxri7Pj Veqb7aqt57WNJ4s1HeqYdoZ XC2BDR9KqBdQy3gpXRqFVPz RH6yPtVfrMXcNGLkyk46aSm sBXfzmtOtoW7zSsZpPVAnmA HfZERvSM9lqUUcPIWftQ6xb mxjXHBnYnJkcmhlYWRccGdi ezWkJf2gaAbxOUG7MSxxI5f kyQ2ySiB9VZpfU8tgqJ7aKG a4QWycgSV7TJBvdA9xLA2mb jdma3qxBRhhPGxaSLBaxkY2 xdA5RJSvjPGvQ6FkmO3bRJL rDH0ycjhct8ipYTO2LKosHI ZlLYM6VwLjHNTos3Rqfmc3A zCwi4BkqGOoDEbgR66wc863 MGWytlTtC7nhjHXhofrehEK agkdvHXyisvC0IMOsjmRwpH zqbT7iEzIvTtOwNEhzNQ0xU DTbY0kviUEyBFZzISUxO1na DoXboU9maHsoOQyvTiBrEaJ mIYFWJZjusoUnIONkkG9Bti QvOCPGtKW9lNQbNsXbJRHcG VVbhISdUSAdo72iNMW5LOFe IFxwYXJ9 Specimen Adequacy Satisfactory for (test code = 9847) evaluation Diagnosis (test code = Negative for 9849) intraepithelial lesion or malignancy Diagnosis Additional Fungal forms consistent Statements (test code with Valentine = 9850) HPV Reflex for Inside Sales Account Executive Yes (test code = 9974) Informational Points p0rovMZkHHNetYSdBmEkCUR (test code = 9836) eVSLox6yqVBXnhLCqHnWnCv NcZnRuYmpcdWMxXGRlZmYwe 8jvj494tNFxj2rmYEHxItH9 rCYcGWUsxRUiP022JYClIOf gj1mkq8McVWXgqZAvf2W1XE FFNMrkWHVNELf3k3pnVqLxU bY8aPSzVHvlN9nzsbFynHKl GYGaPBv7qI84CHUgzV1ufQN kYYdadgBsDcR0BPqaTCMxWq U2TLGocYHbUDPqU3biRAIcJ IopFQOqXStdnNOeMWF8bKrz m6D4qDMmhADoeMgyOwRkVuN oSzZIf6HlSUl7lJtaV0RwKE BuLgS0eAVaNRObPTpuPRTqH YTstqP2rI32AIriiiU0zVLc m9Rqf31mr048tX5ewELzKEX 4KJYlVHWexNDhQEBgAZZ9CU LjlFRnC2ibWTRgUO5xsqxdP BuqQQylYXWrxAN1XWKxxHHn U9DcJNDmAXexUHHqxkz2UrP xKu0thRZmkXifFEpkm5wtz9 txlCBlXcv6TCGeUcUaVmauS Fmdi1Ibj3jjKWMjkr0cEAD1 xBEgaMzgg0I6hCUmLSSmyXR depPvCCHqTaY4EYomLG7kzr 31WSUyLKO9ez4yrFKgrTjck kDgfHOcEPihB4VwJJVui463 HAKzY9WmCDZds7P1liJjPzM kLUFodFL5neR0NQWgZPu4hS KivdH6huVsyAUxA8gbnU5wD WNpCB3xgvxaa6eqOWwhLCno FAMrnUR7zhL0FHMuwQQzK3G noI2mKTNbJWojUTSpkay1Lj RyLn8bcLQfjIdpUTabBalhK WdlXHBnbmNvbnRccGduZGVj XHBsYWluXHBsYWluXGYwXGZ oMkOghEhgeAxvyX6sTzUwPv QrJYmaGN5rBTWoE4bylHTtV XYhWNRqV7xyKdIdhV9wuCsm WUbxuiG6PMkpB2Btygxdt3H nY4zdIYbcH8w1h0ohS9vzbL YdNBLjC2TwRR4utwhnjUAdY 4JgjKBzYKH3IacpI1AacZ1g GkRsu1PnvsDkWFBlyqYtUKH iZWFgWJjnTFYar4YedGi3QC EqEEMkx6RhvAHiFDNoSO3ao zRlnnKxaLTngACyk6kofrNh GPTicPpbXbQjkP7nlXYrEH0 vwAEjwEPim2O7YYqnZUIvo0 4cWNNtKXo9bRPqZGWmlGZ1v NXjenNdYzXpgFBrNC4fCVWk m5WoZGGmIQBltdWyzpBsSDM tKJG9r5zxnGgrrmH5yHJpXG Uvz1EcRG8oIIF6spKzgrDmO 2upibtwNYzfHZH7NJ3gORFf imMCz65tICTlw8VnXSDuwG1 zfKQkKTkinxKjvAE3NFtkub XzOuZyblNrPDKasE8eMLIiF X2qHCBfvdRzqf9mcmXaAAMh WZLdW6PybrlrmWdiyhFqQUC vfj1djmJdRZW7MIEPZG2JNA ZyDGBru81eSIOlnWdgyO3uy KTtlhZtNSXdw0ZimL9rvDAG UJQgU7cgUB0pEZfoh1LplLR qrNYniHM3CJVpw1MuHuLfmx HpiXImxGPwS1WyjCowF2eoM CNiUDXqxsPbhPQek2XjKVAm iTB3vQAeXF4IQrDVc16wTNX qGWEExiDdBQWhpJdouXC9ad E8gL6fLaNpbSpowF5kBhZgU eUqWztiXM7nFQXqK8jixINi XDIxDAAaO2uxWwMisK9orKk mMlxmczIyXHBhcn0= [facility] [employer] DES[employer] Interpretation 2022-09-20 21:17:10 Test Item Value Reference Range Interpretation Comments Gross Description d2qfsENdIYEhbMCZTHYpLTY (test code = sLB3yoMoefXv6lBuiAIVbeh [id number]) X3wJFaGAibq8ajXUM4x4yra pVCEfsbIWVyMK0uOSwaBFTh TO7vPpGfXLYvFmLuOGLebNM wuzHfJgBlSXSzpHQtfAW2AG IkHV4slpgdZNjeLLbhXCQeq vO5LJIkpZCuN5CfIYZeHK2e ucznPBT4CATUDlrmLu3gsQK ibHtcZjFcZmNoYXJzZXQwXG PprZmvLKMyTWe4wI9UVnjfE 21in5B7Fif0AAKsAEMmB0Vq DE6sBLIlcBIoW01CSyjsDRL 6UYIFMhfuGrkpeNgkq0IfhJ BcXHNnIFxcaWQgNTEwMDAgX FxkYiBPVlIgIiAxMTYwNDk5 PxA8HFb4ACEHMMKxBlD1YSW 8NNX2JEg0FJUdZQ5bIGpaeE GtTIfzAtqkFPxdV847QObcF DNwL9BbK2JtXZxyStRyJIzv JJCvTHPrNBqiLQYjH2MHSXF hEYV2BJB4QGJjKCz2KCkeQ0 LIZWZfWMV4ZfR6NKL9KaH5E Nw3AMNSXf2sMHNlAjZ4WJP1 HqF4IWT1BhKbLE9fUGclqTQ tEWumj1ImWiUoCXLmSByyiz B5QSPdaeFdTQvrjBdydA1qV TMiY80mc7UWt2JsAZ9SGWj9 jxLqoqzguA9xGEKejqZki1L zMFxlcGljWHNhMzAgDQpcbH XlX3ogO8WmQQBeYuCpCHJYf VtuOZWpgTT6pLYaIQAqP3Ei brBuBSzel0KyUFGcfRICz2N fWR2EDJXbfHSQKIE6QQ2yRE zgLZMnO2VxZ1IbofP1s5lkz Pjbm5RmfJDoED8qiJFpIL3Q QKUfWPccCR3FcU== Specimen Information r1kiyCCpEWEepJGuOyTmSWD (test code = 88859) mJYTow1joDRPftYXjXcWqHf NcZnRuYmpcdWMxXGRlZmYwe 7tbo401yISko8evRERmDjV3 sDIdSCZhnRBcR019RRNzVHe av5fmr9LkJLKieCDlp0P3ZT IFrdqacOz7j0yhKkQmLs8am JWXa4LqzJJcFK7rdxq2aYie G97yd5Y5UqqvT2qlUYRgKSW nH4NfRC9vLFMaBkq7UTN3PM L7LZHxXHEeQ1PaHU0kWEDsj WUwIDtccmVkMFxncmVlbjBc Ilg7VAG5AZU7YQVgPBDrMLe gpnLrdcTrEct6TKByTEW4RW JeSYC5AAffuuUwxdZgRmj4P LVrS728TLW2qEnlt3dnKMI6 TBNbBTGnEsVlTp1sbAUmS21 9EKUxMCNGWACqzUp5RDEszg YirhXmcJOTb704H734QYMhC BYoQFw1OyRCOBClatf5pN3a ZXKxwf10vKeqtzSxp11kjNJ yXGxpMzYwIERlZmluaXRpb2 8vADbwoAt8n9qgewSpsSCCJ SEujta1eN7gX128RXM4TPRo DPh6QZkdrGKqqU3ssRJ0ENm xXGZzNDhcYlxzYjEwMFxzYT ZxYYytwVJgr8Y2xCznZVnef vWuDOdlKIUkzeSXAEk0a1gj VpytuwF6uCZdp1D4vXomWNl ayrOtJjaijfX1VROvd7TuTI Ymc4JsVFLvc9mgHL34aIbkr qJoCVFssROmh4ZwbH3hPMB4 qLzqxtnyf65kjBAhFT10wDx pbmVsZXZlbDNcZnMyOFxiXH NiMTAwXHNhMTAwXHNsMFxvd WHmeU7egXU2KAiaRAqgZKNe CPqdN713XDD7ZUKcKFb1QBd edDKrqH1mtYR1DYd6NBTbHi RcYlxzYjEwMFxzYTEwMFxzb EJbv8G3mMdoBExmoyNsCKad XXWrrfUMLHq2r5inSCmmoeX 5sVFuh1E1gBlxGDcvclKrLM nierFoDYFtz9PdMGXav1PfD PEwc3zzQE61wOdxmuKxSTMj yLTzj9YlvZ3rAFY5jGqggjZ vLDFwWRp1USrpeLSqhM8rsN F2FXv7RUWpHUDfBxtnEeVlY ZboMGRpEEddmXKao5L4xKwd ZWxldmVsNlxrZWVwbiBINjt 9p4haGTYnv10duVQrTSqlUQ OhcqBojem0k4vsRQXfg83so HQwXGxpMzYwXHJpMzYwXHNi MTAwXHNhMTAwXHNsMCBCbG9 ry1B2u5EiA768TEOoKMEvrR BRQOASC215TTCgRTSxQjMcZ vLnJKHYP5OFQ352EICgYSFw pBeyKLKaKJSyFQkyKK4ffZZ jdGS9kDanV3ZxVpp7qYhzEu YyZDdzCKVwdC6yH405CNOpE PdceNvwF9U2IBNxsAhiq4Wh GDxvTFHekB6cD428EURmFVp cZjJcZnMyMFxiIEtleWJvYX GqV412YVWbCGkzuhZ2eNSpW qLtUyVxYTi6xLTymPn3ALwm vCwgLNH5LDA3Cuq1H6e0fSY 5VdDulXj6Ifg7LUR9OAc0TO q6dRX7UWYxqDb8OsmmAPB6Z XMhUTm9wUu9ZVFbe0TvZBZn OPbxxPBcARJpEq7khHA1xCX yK410ZXMkPLrneuL4qGPcPc OqJdLkVdt5IQGuPXS3UKTkN TRsBmetfhGhP4EqRHYyJGaw Zr27uC6qHG4qSNUlpq08cFn aktKjZYSzQQb3WOvrORsznu C0YDQiSoIgveRzPrNzmeNzW UNkPGLzLfGhtIVcmu4Gr3Wy j2SlGm2mxMg8y6kndnLzGRI yIJBsyOGaWBn2i7oaydSsTI HzA6Snl99wF865AJNvEkYxM eDnHvIcGVEPySXec1ZjyOZh J864ZMFpWbGexWQGHONtIIT lVIx9h0nhktH2UJLmA8Y1DH rHHLxrONXpa6MnA104INDkD jczrdJUn82lYA28Y913u6se MASxsgZefAdCujgrz6oyQ15 9XHBhcGVydzEyMjQwXHBhcG DmxPK1BHFyOB1pmligLFccQ GyzRVOzypP9UXRetEBqK5Vc TSUcLG3mqqjrOXP0USmgDRM tNTX3XwXhEGQkr0Jrldr2Se Znrd8aut13RMY6e4MaaLmhK CY4HTH1OsLaEo0exFHaYSNm YN0nWgYohVIvKGBicp17oUp iFDmncsWsjH4aCfLtJVIkoZ MiDFZfLH3zrGFoWCZzfO8pa mxjXHBnYnJkcmhlYWRccGdi wtGhRc7iaEwkBCG2DHrwR2f umF7tTtT5HIlrU6aeuS0gDW s0BYjajHT2OKQyrK5uIM2et zqjj7roCKqvXDjrZACrkqJ8 yjI8YLDcxGOxY2PanI3iULL dLB5tdrvxq5rxFYF9FSpsLR KxXYG0JeZyZRZyp2Eypzo7N kZpo0QgzRWoXAbpG23gw312 FSVweeVzU5wftNUczqoqwLJ urpwtCBwtovR5GWTmvnRfvE cftN9pWpViFaBvOAywEJ4dR PSlL6dgzNAlXAZcZZSpN9am ArPrwA2wsUvnCSbiFuPoCcH iLYUSJAojknZjRZDbaG3Mzp DyBABZyVH1cXXpRlOpMEFwR CEvwVQpZLBpu36sVGD2KORv IFxwYXJ9 Specimen Adequacy Satisfactory for (test code = 9847) evaluation Diagnosis (test code = Negative for 9849) intraepithelial lesion or malignancy Diagnosis Additional Fungal forms consistent Statements (test code with Valentine = 9850) HPV Reflex for Inside Sales [employer] Executive Yes (test code = 9974) Informational Points r4kkpTUmLKQebRTdEiIfCPY (test code = 9836) hWIScy4wvJZZfsRYhLqZuNo NcZnRuYmpcdWMxXGRlZmYwe 8srl596pDBlz0ntAQTqMdO3 jRIiCNYruDFhX039STLvCJt pa1lbt8BpQBHliELud1A7QM LVHIceJQBTZLq2a1dzFfCfP vS3zKXqDGskY3uewrVzlORx CUQxEZu0bI95ZNUwoR1wxAK zKSdpurKzRvR0JVxlFDVjFz Z3FEGtvEWxOFTrM4uzHZRzV JtlDCBxDCrslTQxHBE8mQmi j6Q7cQLfeRJqlAkbBgAdVeN sVcYSw8LhAQe3zZskS0SiBU IvWgA7fTAxSMPaFXplHFJuT VHocaF6bX27XCwqwtG8yCZq a3Nun73ly359lQ1tlWUcZTN 6RZCqXQYkyNIjCWEcVJU0TU FufLIpD2mdCTQmME0jforcN LoyCVczDPHbpNF0BOKwfLRq Z3TgMURwFNruGICotsc8SoU sRf8afUEdcEslSPgbp1vfa4 lslDBoCsd6QUBsFkImLoicE Cjlr4Mzv4cfIMXekj9oKUP7 tOJpkHwna1O9cHKdSPBvkEG vduSqOLTzBaC2NAhbGK8wzt 55DJTmXGI1ke4evTTxaLbbj dFytFVxSDwyT3BjSKTgc193 AAFnD0FbSPJzh2O5ltMoXmF pDNTorZI7fdG4RIZrVTr6oN WavkB0gkWdkORcR3ytmP2kG CGjGZ2fmbexh4oaBIzqUDum ZUJtiUI1gyB8SJVpbYAjJ7U pdS1nMUDqZSdtELEafze6Cz SuUn9saXQvkVqxRAhlYcgjG WdlXHBnbmNvbnRccGduZGVj XHBsYWluXHBsYWluXGYwXGZ lXqRagZytdGnltF0qXrMuGm DlRCoaFR4tKFXwO5vodVDfI NUsQTWvP0ojRrNprH9lyXfx GOwvwqK7LHtwJ6Tsfhfyr5J eT8rgOPftE1z7n2cvH6laxE JdUSVlA2XbPW0bfejegFVrF 7NazUKcVRI2EyewD0AcrG9k KrZgn1RowgUxSOKwzmFdBJB eIAZkLRioNUVab8LmbSx7JM IqMPNfi5FxsFGcHLCiAR9nu aQkgmHyxOXmdQJfh7puhxJt OSTlmOikIlKkxL6vjXJqFZ4 ulRMkzVEif7H2YMkaAIXxs4 4zWVMwKMv2sNUqPTYuaFH9z MKxdlHbCsFyxITzXB1vPUHw r4CnDOBrSIKorrOaokUoCCX xFHZ2o8cacEacxiQ0bRPnQZ Fxb6JvMK7aRRB5teLethDwV 9yxvvvcTOzdHDS8UW2aWHNg nkZSv70aHQKmt7EmSHIvoN4 rjSVkSSidcvFazZL5WSczgy DzSrPlidDhFADfcN9iNEIiO F4tIBLvobXdmm2kqoYsIJTk MNGsS5ApzrenqUtvapGmVYI lgd6xdtLeBRR9CGRMPK4RXS OwQJHxp80wGBZbpVbnpK1ql YJfncBjZNOpl6BxqF1ksCFF WUPrJ1jtFW6oQMxze9OsiKE qqBNevTX0NZIct2OqWuHmbe HmyCAawVUwW0DizSelZ6weI EAsGSQgboJtrMPud2CfCKVy rWP0oWMdVM3FXnZTm80yATU gPJBExwEvMHWtfCjnlWV5nu P0vO4cYbEgjBjqaN4qUuXvQ rFwYeprLW1bMFXyD8luvEZs JYUfWNIwZ9olGiVlgV9jhLn mMlxmczIyXHBhcn0= [facility] [employer] DES[employer] Interpretation 2022-09-20 21:17:10 Test Item Value Reference Range Interpretation Comments Gross Description d3uvaQKrMPGfsFAHVUUbKLL (test code = qSZ6tqVdwwQn1rYklEGPsbq [id number]) K8oMUzQFkum3flGFW1s5kag dHWQbklWKEkXM1gXJxzUIFh IW2fYnXrIISvKsHuLAUztJH uqxGvBnYlUPCkkXNmcWS7II CvJU5fqeikIRdnHGbmXCObh xO8MBIddKOvN0CtQMGvKF9b lytpLXH8SWTHLqbyRl5itME ibHtcZjFcZmNoYXJzZXQwXG TgzOzdRULgNKe0kP3EUyncS 19ta8Z9Kbb9CLXxYDFxQ2Cn TP0cPEGzeENvZ51RDothGSD 3LNPPLspyUprsvKjbi8RyuV BcXHNnIFxcaWQgNTEwMDAgX FxkYiBPVlIgIiAxMTYwNDk5 LpQ7PZr5CSWVDAHeGwP8BTX 5UZN9RDm4XVCjLQ9rNScynU CyVBzhRextEErqH242ZNjvE YMzH4CxQ5JtSJmpUfGbYZnm LRVtMNVnAGdkWTZyV5WBDSB uIQU7IXR2BCFlEVt7JPluB3 BHADTkXFO8NhI2NOV1TfK6T Xs2GGDEXr5pVDQvYdX5XYB0 AtS7SSC3WwRtUS1pQNikpME nUVlpc0OsWsWoOFEjYEdzme D6DWQhxoQrDQxycMardN2hE HPtX41ti7ZUw6ArYI8PXNf3 knXtcgkloU0qDIRlipBzy3H zMFxlcGljWHNhMzAgDQpcbH UhE2fcX0GlPYVlOqPlSIKXw DcwZKXbuWP0rOMeTDGiU7Vu fbQpTTurj7PmEJKepCZUs3J oSI0MEMZelBEBUFU3ZZ7nKU aaMRBkR4AyZ5PnfoD4m4wqu Dxyx1CojWWdPI8kiZXoRF6V GEEqUHwpSW7KbM== Specimen Information h9qgyTMyPYLenGPaLtDoRLY (test code = 52074) gTIIii0vaRLXfoNXxWsKpJy NcZnRuYmpcdWMxXGRlZmYwe 5amd954oEWgq7yzKWBsFsN7 iHRlYFFwvYKmK067FDQiNAa fr7gyl2NhTKVpyMZnk7X1AN GWpdmksOf7b8wcGwDbVk3gb QTDg1PltNPuNZ2hclc2aHnc G82jq2K3YsclG8zaOVYkBNU mG2PsYT1fSLXwQhc7RIH3DN S9FRNaZLCxK2AyQE3fKFKvq WUwIDtccmVkMFxncmVlbjBc Dgs8ONZ5HPT3JZTlQRLsBCh jtwWixxTbXsi5AFBeFMF3RP BgSOH2MQwookWgdaPhDis8V YMcY868ZDS0xOykl2cqSVN1 LHUxRZFiDuDdQp9tgXDkR87 1FWJmJODBOTFvxIl6VYUtry LvfkKawDBOn047N349THIpH WBuZXx6SqBANQWqvdy0sD4v OTWqkz89xOxtmyNmg27buZU yXGxpMzYwIERlZmluaXRpb2 7xUXzgyVz6e7jzgdEshDPUS UWqpfi8hX9uE953VNU3VCPl UDk3EAaxbRZvrC4yhAL7NLd xXGZzNDhcYlxzYjEwMFxzYT WaWMbllSDoe0G3vSugFWaua dWxTMjmPTRjcwXWNQz2n7dz RufljmQ9zBOea1L0hSztTNt yjyVgWcatenU8BKOjp9JgUR Hin4ZzMNGzp9nuXC76yNdhh wNaLASgcQArb5YnqW5lLNY2 tIzssjinn39ebNRmPJ00jNc pbmVsZXZlbDNcZnMyOFxiXH NiMTAwXHNhMTAwXHNsMFxvd CPgaG6ghDH3PIfhXMaoUZYs DLqrM690MVI8VTIgWUx3JSh atPXjrY1ljIJ2RCo4JUOjKf RcYlxzYjEwMFxzYTEwMFxzb ICsd3M5hFwxRMsldxRvKHwm MEYnrvGMNEl4k2umUNhjtaU 5pVBgn7K8zDpoVDriklQwIP owdvJdKYXks2ZiYDLqq4ZkM DTls7xzSH21tHqvhkWnHDWc xASob8HxtL6ySKH7dOkdbgN xTBKgLTc2XZzwlWYcuD4gpS G4BDx3LYAmSFRuDqxzOyXeQ QefIIRwJYexvDSjq2A6uIcd ZWxldmVsNlxrZWVwbiBINjt 4c6wfVIZwm73xbOUfAXryGM UljhOruwy1w1goCKWts32nk HQwXGxpMzYwXHJpMzYwXHNi MTAwXHNhMTAwXHNsMCBCbG9 cl1Y8j3FpJ947CDJdBSObvE AOUBHBZ476XBAyICXlEfBjD mXhMCZIM4FQR225TEZxWEUk bCkpHWVvYQRzBTjsCO2ovMQ vdVQ2jMbyN1ZbYnz0iSdwFz JvUAwsPMQuqT3nU992NIRtZ QcieGirY4F4CLSauUrir3Bp APpzAXCwzF7hU429HPLfNNt cZjJcZnMyMFxiIEtleWJvYX WiM071EIIwKAyitdX6nIElN yXiPbTsZFq5uAXkyQn9WEne iDzqXVM7MSI7Izh1W0e2zIE 1UcBsqLf5Hkd0CQC5SDw1MY y4hVX0CFKrzDn0OobuUZO9L LDaKSn6iPc4IJWuz8IgUIVo KNinpMYpMBDyTt8jpRV0nAG sO004LSMqHRfwvwV3rGOvKz LvLaShKdh7UOUcXUH1QLSkJ MNoEzmyltEuX0ZpPZCsAEio Cc18bC2jZK0aQTSfeb33oWv neeGqBGEcLWw3QKapPNdwnk A0VXDrEqBhtdXgRcSnhfUdL GStENPxRyCamBSmrm3Nr6Fe f3CvGp5mjBo0d4eqrzPqADH rDETimVVsPYj5z9trnsIdDU IcQ5Gyd21lM008URCmOrMaM yAfSvCbPHPXvZEtu5RvvUNb Z852LZOiLsQgnXIQXZHcOHV lMLt1w9fiyxR3HPOdV0T1NR gDPNkaNBZts4JlU847OJIrF sqrcuUWq56yAX09G828b0cd DORilpRluHlIgzqwo5ubE02 9XHBhcGVydzEyMjQwXHBhcG TisDY5ZJZjDY6ojdafOJldJ SffZMVpseN2AXVnxCWnE2La RVLgPF6vebamVDT0JBqaUEF rAGV0NpOwVZBfw7Jtxln7Na Zruq8wwl63VNV0m6MnfAuhA QN8BXX9VaIiMl9tmZJqYGEp KB6jRqLagUXdTPTtqq73eXo jYFbpuzAvdQ9lRgXiYZXmkT PgONKkIS2ljGTrESKbqY8er mxjXHBnYnJkcmhlYWRccGdi xqIwRq7kqCbjZPF2CMgmI8o baL6uXuC8AQmjN7dceQ2wYJ k4BTudaVT7PIZcgB2nMY1yt fitc5dnCTnfMKpbCEPznsL3 zxG6PZAbqEUlN0WtbT6nLCC nTW3hrzsmo7jpDON6LQogPZ KaPKY7YmYfYXBez7Frlgt1S sClm0YsyZZwCOnvQ43us419 BJGrwcOgE6qswZSqnaoysJB tlsndJMjdgvA4ADKkhbWfeS pnnV4iBmUhSwRvICceCC7wA NMlD8dhiBZyQVErLCMzM1zp IhSlkT9kiKulJKotFlJnGdH sFANOQNntizWqPGEutE1Bef RhCXOCxXI7fMJpVsXjISHbY TUhjRUsBQUaj06tSDQ0PEOc IFxwYXJ9 Specimen Adequacy Satisfactory for (test code = 9847) evaluation Diagnosis (test code = Negative for 9849) intraepithelial lesion or malignancy Diagnosis Additional Fungal forms consistent Statements (test code with Valentine = 9850) HPV Reflex for Inside Sales Account Executive Yes (test code = 9974) Informational Points h4kdhEOgKEPkyMMuPiCaUGI (test code = 9836) bUFKgk4gaNDUpjRUqPlLnYw NcZnRuYmpcdWMxXGRlZmYwe 9gas972yERrb1tbMUDyPzZ7 wNZgQFBpbXLfZ748ICUaFFj ek6cez6DpUTVgkDPdq1W8AT EFGKkmCWVZUQt4s0qkHsQpX jW2jIWpKCkrO9pzduKnaNGz NMWeFNv4xZ15CFZroI8wcBF xAQnlajOuLbO7TAndRLHzBf B7MUOnyCRpYFGeC4ukSXCvW YvyEVLmXWhvqWErNZB4eYug s8B4iKZsmRKnlZqdEvSaBzY mUqVTv1ZjRPz7eDvnK1OaBZ OmRtG8hZSqCJBzXUpfHXUmV HDsdnL1zT66POpqodB7eEGv t1Ich76rd187fW4lxCLkCTH 0PEDtVRThdJUgKSMqLQD6EF KxiVVaL5nsQWFyIZ3jtcxaG BauGAdaUJBvhXS6SDYnwMTx S1WzTFXoCLtkXBAllwq4UiN zAp0ihDMurNokLApee6acx6 wknBBeWfd0IYLaJnBuFqswW Wkqo3Fzd8bvTTVvgj6lWRX2 tMMvsHkjp4A0qEGhWHNkkKK spmQjWBQoTnP7BAbuRB3ovs 50GGVjECU9tj8wuWZmvExvr vLqiTFuEAljY5IfVGAqb933 DUPxI0HcDBVhl6Q0teLpKlJ lXJTwdVC5obJ8FNXmBGh7nV KhwzI9idMniJDlJ3nedQ2rA FQtBF7jisayo5dlAOlyVAid PHVfoJF2amE8YOTskEXhJ6L plW9pDWUyPLzlKMAhviq1Jx WpSw5lcXFchPjrKJvtRkwsZ WdlXHBnbmNvbnRccGduZGVj XHBsYWluXHBsYWluXGYwXGZ uMwBfxPhxiVvdnX2nGjHqZd PmIRxuAR5tDLPfW6sldFCgZ CRzQWVrV6mvXcHveM3mbQtz LFwddtB5IOtiL7Ntcaehg0C rO0roULieK9n9e1enW6imnB ZqQRZdP7WnSL8xopkooTXwX 7BqmSSvWVZ0EkiyH5SpbR1w MpAal0VqgsKmCKOqspZsFWK sEYVnFGexTMUoi4NxlHb6RY VsBSRyp9TvwBAyNICjZG7gs wCxliFscLRwbSEvc8eznrAc WVMhgLtrDkFioC0pgZQtAD2 qmUJkbLFnb7O8WLqqLARht7 0qHKNmIZx3xMWhTAEtsAO3b LLzrgHwBzSosBSlGC2hBVZy q9DxDKWqINOqblGxcgXeLMY xZEZ3j6evuEctdcN6oCFhOC Gus9HyNE4aHAI1fcKqcxGjB 2aoskhkCDvsUEG0RC9rNWVv sxRIa18xJYYwx3ZmHKCgiA4 teYPbQXonoyHhqTZ9IZnueh YjGnDwdeVsISDnlY3jLJGwB Y0kLFWmnlTarz1rjoBiKSUv ZQJyZ5CaxreloKiwsiLdFWK bpu9gcpCuRWM3FWOKBW8VRR FjMHFwe81kYZLieGhuuD2jp PJapdIrTDMzc4BgeJ2ioNHI TKZcZ5wyEK0yGYjmq4CmzAW waXPsdPV8UOKuk7UyZjNbus SziTUpaETyM4JngHqkM9paD NBwLUQlxkPkiDEls3HnSVCr fTM3bZBpDG4GRmJMt31iRAB aFHZFldJcNUDfmUrqmPS4qw O3kQ4fArScaGjjqL3dLwMbL kLbUrecLL5uJYSbL6nywXFz LBMvDCOuI1orQbVjhK4yhHl mMlxmczIyXHBhcn0= [facility] [employer] DES[employer]ER Interpretation 2022-09-20 21:17:10 Test Item Value Reference Range Interpretation Comments Gross Description w7ztzGAnJZCtoSMJTDQvUDO (test code = kNE4csBgcgOz3oWcwCKLaln [id number]) V3cMDyLDxir0waVER1s8ulb rJEPahoWTWvQG0sUMpyKUBk UJ8gQcVdHJJvOqUkOERcxNU dcfPiJdGxFLKleDCojEO2VS MuMP3sfqvpGMbiMWveZMDon uG9OLZxsVCxO0DnBWGeWV6m wotoOJR5WGOMAfhuPu5oeMS ibHtcZjFcZmNoYXJzZXQwXG PfoNmzJGAxCGe9bK6JCqruB 77vo6H4Kol7LURjASLpF1Ix GQ9cSNBstUEyP59ENmipHWB 2ZEFCZswmIqxllCyil8HokO BcXHNnIFxcaWQgNTEwMDAgX FxkYiBPVlIgIiAxMTYwNDk5 LuE7QFv7XJVUIYIiTeC8VAT 9HLH2UTm0LPTzTG4oBGnajM JjAEouLlvmEJnoH587WZrwD SZsB0WrL6NsLPbuLeSdFYnq CFDkPIUjYTvhIBJyE5ELNBY rSCP0GHX3MVMvAZb7EMfhO4 YTVQNnWGB8HkA8TOR9ThX5E Gg1HTQIFa4nAGJzCpT1EZY6 QrH8WCL5RkCvIP9bRRocxXL xXAzgb5HwQfJlDSJhFWousz M4DFWcskOgCGgelZnvxA4tQ DUmE40ri8SQu1CjFJ0RQFv8 kjXhwvlwoN6fYMOfyvSny8P zMFxlcGljWHNhMzAgDQpcbH AkK1pcZ3UlIUQeMmNkGLQJv GqrULBbyDI4vYZqVGLlM3Ex mfVhUPgdu1DfFDMqwHRXl7A eDN7TQFOwkVXUHPZ2ZM3mIO miYSFzJ3FnZ7YyoqE3p8vkl Ynkh6TrsHPlVY9obOIfUD4M NTQdZZnkVS2YpP== Specimen Information l8pzfXWaDHNuoWNqMmGkYWM (test code = 26094) hWMFvm8toWLOupHMiDhRsTx NcZnRuYmpcdWMxXGRlZmYwe 5ygq668xRLiq5aeJZXzXlS3 cYOhOPTkrHKjP804XHGaUHz ve9pcv2KsQWZxfSLip6N2ZW IMasfmxYe7l4qkRkOdUy6ud LVOh7VaaBTmMO6jbzc8cKnz X92do7E0ZsyxI3uzIPYeXTX tM3OqUB1iKCIoWvs2KZP3QP L6UKSjVMDsB2CbXJ1bVECri WUwIDtccmVkMFxncmVlbjBc Yto8DBY0TDB0IGMwRBGxGCs nomRtkkSrPru5QNXzZRW6AS GfPEP5NSqzgaSajiNmCsv1T LPcI727KAC7jIwot2ldUSH5 VAVpBPCgPmAtCo2smAFsK50 8BJEiJQUEJJEhkAs2ZPYjla ZwuxLmaNOEf706F130QIXfW ZQfBZv9FiIWDFWfjgt0nV0o GGTevv41pAlvmwHhx18nqLG yXGxpMzYwIERlZmluaXRpb2 9oDAxtbVy0h9fnfgUjwZOHE BIvcrh7pN6vP227LWH4BEBj PIk5JOjxtVYolX2luHW6LRe xXGZzNDhcYlxzYjEwMFxzYT ZsZWweiNNom4Z0qXvuHMgim jPpGUgwBASxezACTEm6b7jl IcsmsbU2vPHex5M5pFmoHUs nfsBgFuqfllB1SGEzw0WyDQ Cyu3KrORFbj3qrRU47cBwov hZzJNSvqFHux8CxaF6qHQW2 mRvvzgpds81lkSBuEZ10uDg pbmVsZXZlbDNcZnMyOFxiXH NiMTAwXHNhMTAwXHNsMFxvd HEbpB9kiSI8CAyoSDzdKSCe JVvjV102DTY8LQHfLFp8KPo ewQEusE5akXW7CJe5ZLZtHv RcYlxzYjEwMFxzYTEwMFxzb MWyh6S4iNeeBEvgbxEpILkm YCItsaLDEVy4e2oqGOevynT 0hZAwx7S4zIqeLVlmdpPbFZ kfsmQoRWIcf9ZiKIWjw1QpT CHqz2lgWG41kZjeajDxMNRf lADlk9WdmX4zJEP7oPjjybC cXOFeXDr0MRpmdBVycO7hoL Q0ULx9NTGmYKZcMkfmShOmK VxfJRTbFYptgCIzj4N1xUsd ZWxldmVsNlxrZWVwbiBINjt 9v0qhWUNjc24gzMAyFDcaOB HxqtLrqty7z2rqYYFrv63yv HQwXGxpMzYwXHJpMzYwXHNi MTAwXHNhMTAwXHNsMCBCbG9 dz1J4b5KmF232JWVrQUVmbY MKVFHLR080BYVxEUEbSmKsA tJrUZFTX7LQY849KIWcDSLn aGhsRZMcYLOjIPkmAQ7beJO veXZ1jWbnA7FwVvu6lMdwTc MfYNivOISpjO1cX121AOSzO LpsqNtqD8Z5SYWnqOrzp5Qa SEcyYQEftK8lH501DYFyLTk cZjJcZnMyMFxiIEtleWJvYX OmY542XZUsJTbhjeO2oGFfD nKuDgXtPSt6sDCypBa5VLhc pSyvAHZ8XEU5Ybs7B4z7hSN 6RqDojPq5Pln4WTS8HMv0OJ e1xNN7USTexCp8YnskWHO3C YPkUZg7xRx7VMMms2FjUHRi RSqsfGBvOZQlDf3ffIK8uFT qF599NXZqBRyogbH9zXDnEy JvDkVvPcc4WIWiFMC2COJnC CYlMyzokzLkI1QgBEAfSRwa Bj48aH4uGU4hATQwrj86uKj vcuPpHFXzMLh4MZmzMRmcps E8QAGqTqOqtsZuSoJsbvGaD JRlOFNhOpKjjUGxpa0Si3Dz f1WfKg1rpJe0o6troxKuZOG nXNPgqYCyRNv3f3esxaOmXJ QuK1Hpx07bW119QLLbFvTrJ vQyXdJwNJXEtZZvb2KsoZUh F844QQDwSgIsyNBYDKMlDXE zFJw8l2janzV2NOGwD8S6RJ nHBEtsZFGxl2NjW940UOFaY qhwklEQv90bMP48I269n4bl IUWttlDvzGcXxpsfv1gbV20 9XHBhcGVydzEyMjQwXHBhcG LijZF5CBChMD1aeufmOBqhP OmdKEYwgfN8NACvbYJyJ9Xe TJAhOM6uvnnlXJV8ILlwSGD sACN5MzXyPJEja8Ahwrj7Ww Lquq6jmk00ORM8q5LraTsfB EM7XMJ9CdXxPp7uoNIiLIXm DL0aNwBpjVZzWBLbdk28sVl tQPzmycNpyI9rLuXaYWOruJ SuTHBjRC2lhWIvIOWnzL3rh mxjXHBnYnJkcmhlYWRccGdi fuOgCd2fhFrqEFZ9NTfbS2k nuI1pZpM0HEvtU2ebdI0aKX p9XQzfgFI2SNLpaF6hAC2cl znql8myIKxjLOnlULWebyH2 dnQ8LIAfkWYkB0EmrK1dIMW sEA2fvpgyv0ezCHV0XDedOG BwJFG2AhVnIRYze2Ikmib1M gFhd8BmzHXfHGzcL50tl860 NWLgliKvQ3uhtMXpapjujJA wllrbXNbwryA0ECCvpySrsY brmW3hHiTbHaWjEXcaWB6rX NXyN4egfGLwEAKzNHVkQ0aj ZbTbdO4iiJucAGcvUgPcOsI xWEHDDNkwrwNyWIAdfK5Caq WmPGSZwJB7sDGeLcFwTIByP MYfeITmDATzx53cQAW1TTBv IFxwYXJ9 Specimen Adequacy Satisfactory for (test code = 9847) evaluation Diagnosis (test code = Negative for 9849) intraepithelial lesion or malignancy Diagnosis Additional Fungal forms consistent Statements (test code with Valentine = 9850) HPV Reflex for Inside Sales Account Executive Yes (test code = 9974) Informational Points b8nwfPPvSWPptEQfHkLnHNR (test code = 9836) pMMXpv5yiPJPqfIJcMyMtHd NcZnRuYmpcdWMxXGRlZmYwe 9dnt399bDRsg0jrAJZpHkV4 rNYeCJSxjROfT731FCLnHTz fg0axy5YiOYNvsMCjt3C7VB KKPLezRAFYYPb0y7jfDoCdE oQ8jNPeWBjmK3etovFltMYr ZRYuLFf5fC96QVJtsT5fmZW xNYdlukYaTpM2QKioMEIiVc Y3CJLueEOmTXZnI4jeNATgZ OfxAJHbADbitIAfDWJ5yHiq b4C1tOLweLYtsKvrTzTjYwY tNgJPq9FhOAf1qPkcU8DmWJ NyVoN7qXSuFKWgKIopLSPfC AShfvH0nA82NQszohZ2hJWh j0Oyt48do459lN0hhCHgDWI 3ECAvZYLnzYLnDOLfBXP6ZB IeeEAyX7pwRCCnWJ3lypyvU YxcMCydIZJkfNX6KFSpsYDr R8CqGFNtAWyoEKFiuru2VwG nJl9fwOAgfZxaQItdg4bbb4 gviENzJxc9HZMyFiPxWlezZ Ottw9Pea5rxIOSfve5sBKY5 gKGjvKyhe7M0kJFrGXYpnGZ qypTzORYkRmB1OBixYF0lsq 29KPUuDDW2yv3xpPWyxLado oUddUKmKZosF1QnQZBlh664 TPQxF9PbBGOfg7P0lpFaTgZ lNEOunCO5beU7OAChSJs4nZ BjsmC8nxSwkYBuT7vpoT9hJ RChMG3wcapkr3coXLmqYSjz CAWkgGI4urO7DBBfxSKiR1X fzF0iPELtBLxfMOEcapp3Vy UxNq6qxWHfrFfdKAyuVrflP WdlXHBnbmNvbnRccGduZGVj XHBsYWluXHBsYWluXGYwXGZ oVfMabZovnOjbxG8gVhFuRl EqZLctSX7jQSCpX0cjcQJyQ TNkGZWiJ4lmMzFkuD0jcVaz WFldkyI4UKdaF5Hbxlltu8I nP1faHUcxX4t3r9feB7phyV FgIBXlF8HnCX4ynzshkEFmC 4AgvYTeVTF9BeajZ5HpyX2b IxSjm7TllpEwPBUzjdVgFYT lHHNhNPvfHGPtm5LhrDq0IY AbNHMfy1YqbUUoZQWuSP9qi vGwgrNuqKQmvLRlb2jejyGw BWUbeLteZqGwrC1qwFTyNX1 djIXsgBVzl2S2NVyaOBXnz0 9hRYMqULx6yPAlXVIeqMG5s NVgcxHyRaZkoGUqAN1vHNOk k8OgRAQhBWZkunMxbdScEYL bVLH9i5wffWilxyK6tKDyLG Tuy2GyYD5rNWR2bcJupqVzJ 7pwxiqyCXmbBKO0PA3tXDMu cpBCq67aKDRgk0MfMMZwhI4 dvVCuIYgglwLlbUR7WSinzx BvToOcwtYcGELbkE4hXGYmR S8tZLLitqXvul1qxoLyWMSu QENzT1CghmbecYjhzxEyGIE tjl8jqjAfCKY6RUOTJQ3COG DlPUWjt48hQFThkNuikW3by JTkktDlOZQzz3ZsmX0cqXFU RYOcL3twGY8nIYnys0EavZO koIByzZQ9UAHcg3XpYcNkyo IrpRTjyTEnY1FrcOeuJ0onN XFiTWXbldSdtBYkq1UgVUFm hAT1pIXhIH4UIiOJt42hHWE rMCDOfaLvWGPclKotrSL9gs U3tJ3lAzYibGgmaA9rWdQlE tDtTabsTY8eXJVlU6bhnAVh XQXqFPUyL1zbNcXjpD7mySr mMlxmczIyXHBhcn0= [facility]/18 [facility] High Risk [id number] 23:50:00 Test Item Value Reference Range Interpretation Comments HPV Type 16 (test Negative Negative, code = 9853) Indeterminate, Invalid HPV Type 18 (test Negative Negative, code = 9854) Indeterminate, Invalid HPV High Risk Negative Negative, Non-16/18 (test code Indeterminate, = 9855) Invalid Informational Points The sagar HPV Test (test code = 9852) ([facility], [place], [place]) is a qualitative in vitro diagnostic test for the detection of Human Papillomavirus in cervical specimens collected in [employer]. The test utilizes amplification of target DNA by the Polymerase Chain Reaction (PCR) and nucleic acid hybridization for the detection of 14 high-risk (HR) HPV types in a single analysis. The test specifically identifies types HPV16 and HPV18 while concurrently detecting the other high risk types (31, 33, 35, 39, 45, 51, 52, 56, 58, 59, 66, and 68). The performance characteristics of this test were validated and determined by the [facility] cytology laboratory. These validation analyses have confirmed the accurate performance of the assay of the fire apparatus engineer s stated limit of detection for the target of the test in various specimen types. The [facility] cytology laboratory is authorized under Clinical Laboratory Improvement Amendments (CLIA) to perform high-complexity testing. The [facility] Department of Pathology is accredited by the [employer] ([employer]). [facility]18 [facility] High Risk [id number] 23:50:00 Test Item Value Reference Range Interpretation Comments HPV Type 16 (test Negative Negative, code = 9853) Indeterminate, Invalid HPV Type 18 (test Negative Negative, code = 9854) Indeterminate, Invalid HPV High Risk Negative Negative, Non-16/18 (test code Indeterminate, = 9855) Invalid Informational Points The sagar HPV Test (test code = 9852) ([facility], [place], [place]) is a qualitative in vitro diagnostic test for the detection of Human Papillomavirus in cervical specimens collected in [employer]. The test utilizes amplification of target DNA by the Polymerase Chain Reaction (PCR) and nucleic acid hybridization for the detection of 14 high-risk (HR) HPV types in a single analysis. The test specifically identifies types HPV16 and HPV18 while concurrently detecting the other high risk types (31, 33, 35, 39, 45, 51, 52, 56, 58, 59, 66, and 68). The performance characteristics of this test were validated and determined by the [facility] cytology laboratory. These validation analyses have confirmed the accurate performance of the assay of the fire apparatus engineer s stated limit of detection for the target of the test in various specimen types. The [facility] cytology laboratory is authorized under Clinical Laboratory Improvement Amendments (CLIA) to perform high-complexity testing. The [facility] Department of Pathology is accredited by the [employer] ([employer]). [facility]/18 Genotyping and High Risk [id number] 23:50:00 Test Item Value Reference Range Interpretation Comments HPV Type 16 (test Negative Negative, code = 9853) Indeterminate, Invalid HPV Type 18 (test Negative Negative, code = 9854) Indeterminate, Invalid HPV High Risk Negative Negative, Non-16/18 (test code Indeterminate, = 9855) Invalid Informational Points The sagar HPV Test (test code = 9852) ([facility], [place], [place]) is a qualitative in vitro diagnostic test for the detection of Human Papillomavirus in cervical specimens collected in [employer]. The test utilizes amplification of target DNA by the Polymerase Chain Reaction (PCR) and nucleic acid hybridization for the detection of 14 high-risk (HR) HPV types in a single analysis. The test specifically identifies types HPV16 and HPV18 while concurrently detecting the other high risk types (31, 33, 35, 39, 45, 51, 52, 56, 58, 59, 66, and 68). The performance characteristics of this test were validated and determined by the [facility] cytology laboratory. These validation analyses have confirmed the accurate performance of the assay of the fire apparatus engineer s stated limit of detection for the target of the test in various specimen types. The [facility] cytology laboratory is authorized under Clinical Laboratory Improvement Amendments (CLIA) to perform high-complexity testing. The [facility] Department of Pathology is accredited by the [employer] ([employer]). [facility]/18 Genotyping and High Risk [id number] 23:50:00 Test Item Value Reference Range Interpretation Comments HPV Type 16 (test Negative Negative, code = 9853) Indeterminate, Invalid HPV Type 18 (test Negative Negative, code = 9854) Indeterminate, Invalid HPV High Risk Negative Negative, Non-16/18 (test code Indeterminate, = 9855) Invalid Informational Points The sagar HPV Test (test code = 9852) ([facility], [place], [place]) is a qualitative in vitro diagnostic test for the detection of Human Papillomavirus in cervical specimens collected in [employer]. The test utilizes amplification of target DNA by the Polymerase Chain Reaction (PCR) and nucleic acid hybridization for the detection of 14 high-risk (HR) HPV types in a single analysis. The test specifically identifies types HPV16 and HPV18 while concurrently detecting the other high risk types (31, 33, 35, 39, 45, 51, 52, 56, 58, 59, 66, and 68). The performance characteristics of this test were validated and determined by the [facility] cytology laboratory. These validation analyses have confirmed the accurate performance of the assay of the fire apparatus engineer s stated limit of detection for the target of the test in various specimen types. The [facility] cytology laboratory is authorized under Clinical Laboratory Improvement Amendments (CLIA) to perform high-complexity testing. The [facility] Department of Pathology is accredited by the [employer] ([employer]). [facility] [id number] 09:18:00 Test Item Value Reference Range Interpretation Comments Monocytes # (test code 0.3 See_Comment [Aut omated message] The = Monocytes #) system which generated this result tra nsmitted reference range : <=0.8. The reference r daniel was not used to int erpret this result as normal/abnormal . [facility]KTKIWHREWF5098-38-27 09:18:00 Test Item Value Reference Range Interpretation Comments Eosinophils # (test code 0.1 See_Comment [A utomated message] The = Eosinophils #) system whic h generated this result tra nsmitted reference range : <=0.5. The reference r daniel was not used to int erpret this result as normal/abnormal . [facility] [id number] 09:18:00 Test Item Value Reference Range Interpretation Comments Ca Ion WB (test code = Ca Ion WB) 1.11 1.05-1.25 [facility] [id number] 09:18:00 Test Item Value Reference Range Interpretation Comments Ca Norm WB (test code = Ca Norm WB) 1.08 1.05-1.25 [place] 447990-11-23 09:18:00 Test Item Value Reference Range Interpretation Comments Glucose Lvl (test code = Glucose Lvl) 74 70-99 [place] 447990-11-23 09:18:00 Test Item Value Reference Range Interpretation Comments BUN (test code = BUN) 5 7-22 [place] 447990-11-23 09:18:00 Test Item Value Reference Range Interpretation Comments Creatinine Lvl (test code = Creatinine 0.44 0.50-1.40 Lvl) [place] 447990-11-23 09:18:00 Test Item Value Reference Range Interpretation Comments Sodium Lvl (test code = Sodium Lvl) 138 135-145 [place] 447990-11-23 09:18:00 Test Item Value Reference Range Interpretation Comments Potassium Lvl (test code = Potassium 3.5 3.5-5.1 Lvl) [place] 447990-11-23 09:18:00 Test Item Value Reference Range Interpretation Comments Chloride Lvl (test code = Chloride Lvl) 108 95-109 [place] 447990-11-23 09:18:00 Test Item Value Reference Range Interpretation Comments CO2 (test code = CO2) 23 24-32 [place] 447990-11-23 09:18:00 Test Item Value Reference Range Interpretation Comments Calcium Lvl (test code = Calcium Lvl) 8.3 8.5-10.5 [place] 447990-11-23 09:18:00 Test Item Value Reference Range Interpretation Comments AGAP (test code = AGAP) 10.5 10.0-20.0 [place] 447990-11-23 09:18:00 Test Item Value Reference Range Interpretation Comments eGFR (test code = eGFR) 134 [place] 447990-11-23 09:18:00 Test Item Value Reference Range Interpretation Comments Calcium Lvl (test code = Calcium Lvl) 8.3 8.5-10.5 [place] 447990-11-23 09:18:00 Test Item Value Reference Range Interpretation Comments Total Protein (test code = Total 5.9 6.4-8.4 Protein) [address]23 09:18:00 Test Item Value Reference Range Interpretation Comments Albumin Lvl (test code = Albumin Lvl) 3.1 3.5-5.[address]23 09:18:00 Test Item Value Reference Range Interpretation Comments ALT (test code = ALT) 178 See_Comment [Auto mated message] The system which ge nerated this result transmit jeremías reference range : <=65. The reference range was not used to interpr et this result as vernell l/abnormal. [address]23 09:18:00 Test Item Value Reference Range Interpretation Comments AST (test code = AST) 92 See_Comment [Auto mated message] The system which ge nerated this result transmit jeremías reference range : <=37. The reference range was not used to interpr et this result as vernell l/abnormal. [place] [address]-23 09:18:00 Test Item Value Reference Range Interpretation Comments Alk Phos (test code = Alk Phos) 128 39-136 [place] [address]-23 09:18:00 Test Item Value Reference Range Interpretation Comments Bili Total (test code = Bili Total) 0.9 0.2-1.[address] 09:18:00 Test Item Value Reference Range Interpretation Comments Bili Direct (test code 0.2 See_Comment [Aut omated message] The = Bili Direct) system which generated this result tra nsmitted reference range : <=0.3. The reference r daniel was not used to int erpret this result as vernell l/abnormal. [address] 09:18:00 Test Item Value Reference Range Interpretation Comments Bili Indirect (test 0.7 See_Comment [Automa jeremías message] The code = Bili Indirect) system which generated this result tra nsmitted reference range : <=1.0. The reference r daniel was not used to int erpret this result as normal/abnormal . [address] 09:18:00 Test Item Value Reference Range Interpretation Comments Globulin (test code = Globulin) 2.8 2.7-4.2 [facility]2020-11-23 09:18:00 Test Item Value Reference Range Interpretation Comments A/G Ratio (test code = A/G Ratio) 1.1 1 0.7-1.6 [facility]2020-11-23 09:18:00 Test Item Value Reference Range Interpretation Comments Magnesium Lvl (test code = Magnesium 1.8 1.8-2.4 Lvl) [facility]2020-11-23 09:18:00 Test Item Value Reference Range Interpretation Comments Phosphorus (test code = Phosphorus) 3.2 2.5-4.5 [facility]mmmtaoUJORAOCIRU1318-08-47 09:18:00 Test Item Value Reference Range Interpretation Comments WBC (test code = WBC) 3.9 3.7-10.4 [facility] CenterBvhzwylKQNKSZXHPS5944-53-49 09:18:00 Test Item Value Reference Range Interpretation Comments RBC (test code = RBC) 3.47 4.20-5.40 [facility] CenterXmkcyucXYDSRYDIFY1122-11-68 09:18:00 Test Item Value Reference Range Interpretation Comments Hgb (test code = Hgb) 11.0 12.0-16.0 [facility] CenterOntcqbvEHKBOJOPLH3133-56-69 09:18:00 Test Item Value Reference Range Interpretation Comments Hct (test code = Hct) 32.2 36.0-48.0 [facility] CenterFouxrufPMGBGHDZGG6969-34-86 09:18:00 Test Item Value Reference Range Interpretation Comments MCV (test code = MCV) 92.6 80.0-98.0 [facility] CenterYforytzEGETCNFCGX5803-35-94 09:18:00 Test Item Value Reference Range Interpretation Comments MCH (test code = MCH) 31.7 pg 27.0-31.0 [facility] CenterCooziblVGBGADFHQN3777-99-32 09:18:00 Test Item Value Reference Range Interpretation Comments MCHC (test code = MCHC) 34.2 32.0-36.0 [facility] CenterPmtwqerJMHNUCETCW7395-60-28 09:18:00 Test Item Value Reference Range Interpretation Comments RDW (test code = RDW) 12.6 11.5-14.5 [facility] CenterPnurnvgSTMUMJXTFC5372-95-49 09:18:00 Test Item Value Reference Range Interpretation Comments Platelet (test code = Platelet) 160 133-450 [place] [address]-11-23 09:18:00 Test Item Value Reference Range Interpretation Comments MPV (test code = MPV) 9.7 7.4-10.4 [place] 235960-11-23 09:18:00 Test Item Value Reference Range Interpretation Comments PT (test code = PT) 15.1 s 12.0-14.7 [place] 235960-11-23 09:18:00 Test Item Value Reference Range Interpretation Comments INR (test code = INR) 1.18 1 0.85-1.17 [place] [address]-11-23 09:18:00 Test Item Value Reference Range Interpretation Comments Segs (test code = Segs) 53.6 45.0-75.0 [place] [address]-11-23 09:18:00 Test Item Value Reference Range Interpretation Comments Lymphocytes (test code = Lymphocytes) 34.7 20.0-40.0 [place] [address]-11-23 09:18:00 Test Item Value Reference Range Interpretation Comments Monocytes (test code = Monocytes) 9.0 2.0-12.0 [place] [address]-11-23 09:18:00 Test Item Value Reference Range Interpretation Comments Eosinophils (test code = 1.9 See_Comment [A utomated message] The Eosinophils) system which ge nerated this result tra nsmitted reference range : <=4.0. The reference r daniel was not used to int erpret this result as normal/abnormal . [place] [address]-11-23 09:18:00 Test Item Value Reference Range Interpretation Comments Basophils (test code = 0.8 See_Comment [Aut omated message] The Basophils) system which ge nerated this result tra nsmitted reference range : <=1.0. The reference r daniel was not used to int erpret this result as normal/abnormal . [place] [address]-11-23 09:18:00 Test Item Value Reference Range Interpretation Comments Neutrophils # (test code = Neutrophils 2.1 1.5-8.1 #) [place] [address]-11-23 09:18:00 Test Item Value Reference Range Interpretation Comments Lymphocytes # (test code = Lymphocytes 1.3 1.0-5.5 #) [place] [address]-11-23 09:18:00 Test Item Value Reference Range Interpretation Comments Monocytes # (test code 0.3 See_Comment [Aut omated message] The = Monocytes #) system which generated this result tra nsmitted reference range : <=0.8. The reference r daniel was not used to int erpret this result as normal/abnormal . [facility] CenterEbhzqxyGQKPFIVOLL1255-02-26 09:18:00 Test Item Value Reference Range Interpretation Comments Eosinophils # (test code 0.1 See_Comment [A utomated message] The = Eosinophils #) system whic h generated this result tra nsmitted reference range : <=0.5. The reference r daniel was not used to int erpret this result as normal/abnormal . [facility]2020-11-23 09:18:00 Test Item Value Reference Range Interpretation Comments Ca Ion WB (test code = Ca Ion WB) 1.11 1.05-1.25 [place] 024340-11-23 09:18:00 Test Item Value Reference Range Interpretation Comments Ca Norm WB (test code = Ca Norm WB) 1.08 1.05-1.25 [place] [address]-11-23 09:18:00 Test Item Value Reference Range Interpretation Comments Glucose Lvl (test code = Glucose Lvl) 74 70-99 [place] 447990-11-23 09:18:00 Test Item Value Reference Range Interpretation Comments BUN (test code = BUN) 5 7-22 [place] 447990-11-23 09:18:00 Test Item Value Reference Range Interpretation Comments Creatinine Lvl (test code = Creatinine 0.44 0.50-1.40 Lvl) [place] [address]-11-23 09:18:00 Test Item Value Reference Range Interpretation Comments Sodium Lvl (test code = Sodium Lvl) 138 135-145 [place] [address]-11-23 09:18:00 Test Item Value Reference Range Interpretation Comments Potassium Lvl (test code = Potassium 3.5 3.5-5.1 Lvl) [place] 447990-11-23 09:18:00 Test Item Value Reference Range Interpretation Comments Chloride Lvl (test code = Chloride Lvl) 108 95-109 [place] 447990-11-23 09:18:00 Test Item Value Reference Range Interpretation Comments CO2 (test code = CO2) 23 24-32 [facility]2020-11-23 09:18:00 Test Item Value Reference Range Interpretation Comments Calcium Lvl (test code = Calcium Lvl) 8.3 8.5-10.5 [place] 447990-11-23 09:18:00 Test Item Value Reference Range Interpretation Comments AGAP (test code = AGAP) 10.5 10.0-20.0 [place] 447990-11-23 09:18:00 Test Item Value Reference Range Interpretation Comments eGFR (test code = eGFR) 134 [place] 447990-11-23 09:18:00 Test Item Value Reference Range Interpretation Comments Calcium Lvl (test code = Calcium Lvl) 8.3 8.5-10.5 [place] 447990-11-23 09:18:00 Test Item Value Reference Range Interpretation Comments Total Protein (test code = Total 5.9 6.4-8.4 Protein) [place] 447990-11-23 09:18:00 Test Item Value Reference Range Interpretation Comments Albumin Lvl (test code = Albumin Lvl) 3.1 3.5-5.[address] [facility] [id number] 09:18:00 Test Item Value Reference Range Interpretation Comments ALT (test code = ALT) 178 See_Comment [Auto mated message] The system which ge nerated this result transmit jeremías reference range : <=65. The reference range was not used to interpr et this result as vernell l/abnormal. [facility] [id number] 09:18:00 Test Item Value Reference Range Interpretation Comments AST (test code = AST) 92 See_Comment [Auto mated message] The system which ge nerated this result transmit jeremías reference range : <=37. The reference range was not used to interpr et this result as vernell l/abnormal. [facility] [id number] 09:18:00 Test Item Value Reference Range Interpretation Comments Alk Phos (test code = Alk Phos) 128 39-[address] [facility] [id number] 09:18:00 Test Item Value Reference Range Interpretation Comments Bili Total (test code = Bili Total) 0.9 0.2-1.3 [address]11-23 09:18:00 Test Item Value Reference Range Interpretation Comments Bili Direct (test code 0.2 See_Comment [Aut omated message] The = Bili Direct) system which generated this result tra nsmitted reference range : <=0.3. The reference r daniel was not used to int erpret this result as vernell l/abnormal. [address]11-23 09:18:00 Test Item Value Reference Range Interpretation Comments Bili Indirect (test 0.7 See_Comment [Automa jeremías message] The code = Bili Indirect) system which generated this result tra nsmitted reference range : <=1.0. The reference r daniel was not used to int erpret this result as normal/abnormal . [address]11-23 09:18:00 Test Item Value Reference Range Interpretation Comments Globulin (test code = Globulin) 2.8 2.7-4.2 [address]11-23 09:18:00 Test Item Value Reference Range Interpretation Comments A/G Ratio (test code = A/G Ratio) 1.1 1 0.7-1.6 [address]11-23 09:18:00 Test Item Value Reference Range Interpretation Comments Magnesium Lvl (test code = Magnesium 1.8 1.8-2.4 Lvl) [address]11-23 09:18:00 Test Item Value Reference Range Interpretation Comments Phosphorus (test code = Phosphorus) 3.2 2.5-4.5 [place] [address]-11-23 09:18:00 Test Item Value Reference Range Interpretation Comments WBC (test code = WBC) 3.9 3.7-10.[address]11-23 09:18:00 Test Item Value Reference Range Interpretation Comments RBC (test code = RBC) 3.47 4.20-5.[address]11-23 09:18:00 Test Item Value Reference Range Interpretation Comments Hgb (test code = Hgb) 11.0 12.0-16.0 [address]11-23 09:18:00 Test Item Value Reference Range Interpretation Comments Hct (test code = Hct) 32.2 36.0-48.0 [address]11-23 09:18:00 Test Item Value Reference Range Interpretation Comments MCV (test code = MCV) 92.6 80.0-98.0 [place] [address]-11-23 09:18:00 Test Item Value Reference Range Interpretation Comments MCH (test code = MCH) 31.7 pg 27.0-31.0 [place] [address]-11-23 09:18:00 Test Item Value Reference Range Interpretation Comments MCHC (test code = MCHC) 34.2 32.0-36.0 [place] [address]-11-23 09:18:00 Test Item Value Reference Range Interpretation Comments RDW (test code = RDW) 12.6 11.5-14.5 [place] [address]-11-23 09:18:00 Test Item Value Reference Range Interpretation Comments Platelet (test code = Platelet) 160 133-450 [place] 235960-11-23 09:18:00 Test Item Value Reference Range Interpretation Comments MPV (test code = MPV) 9.7 7.4-10.4 [place] [address]-11-23 09:18:00 Test Item Value Reference Range Interpretation Comments PT (test code = PT) 15.1 s 12.0-14.7 [place] [address]-11-23 09:18:00 Test Item Value Reference Range Interpretation Comments INR (test code = INR) 1.18 1 0.85-1.17 [place] [address]-11-23 09:18:00 Test Item Value Reference Range Interpretation Comments Segs (test code = Segs) 53.6 45.0-75.0 [place] 235960-11-23 09:18:00 Test Item Value Reference Range Interpretation Comments Lymphocytes (test code = Lymphocytes) 34.7 20.0-40.0 [place] [address]-11-23 09:18:00 Test Item Value Reference Range Interpretation Comments Monocytes (test code = Monocytes) 9.0 2.0-12.0 [place] [address]-11-23 09:18:00 Test Item Value Reference Range Interpretation Comments Eosinophils (test code = 1.9 See_Comment [A utomated message] The Eosinophils) system which ge nerated this result tra nsmitted reference range : <=4.0. The reference r daniel was not used to int erpret this result as normal/abnormal . [place] 235960-11-23 09:18:00 Test Item Value Reference Range Interpretation Comments Basophils (test code = 0.8 See_Comment [Aut omated message] The Basophils) system which ge nerated this result tra nsmitted reference range : <=1.0. The reference r daniel was not used to int erpret this result as normal/abnormal . [facility]ThzywdeWBKGQBPBMB3864-72-76 09:18:00 Test Item Value Reference Range Interpretation Comments Neutrophils # (test code = Neutrophils 2.1 1.5-8.1 #) [facility] CenterPezkziaPCCTIPQVAD3033-96-23 09:18:00 Test Item Value Reference Range Interpretation Comments Lymphocytes # (test code = Lymphocytes 1.3 1.0-5.5 #) [facility] CenterChntdyzIAHAFBMGTO6835-50-49 09:18:00 Test Item Value Reference Range Interpretation Comments Monocytes # (test code 0.3 See_Comment [Aut omated message] The = Monocytes #) system which generated this result tra nsmitted reference range : <=0.8. The reference r daniel was not used to int erpret this result as normal/abnormal . [facility] CenterQbysjneOMKIFCXETY8568-96-35 09:18:00 Test Item Value Reference Range Interpretation Comments Eosinophils # (test code 0.1 See_Comment [A utomated message] The = Eosinophils #) system whic h generated this result tra nsmitted reference range : <=0.5. The reference r daniel was not used to int erpret this result as normal/abnormal . [facility]DashROID [id number] 09:18:00 Test Item Value Reference Range Interpretation Comments Ca Ion WB (test code = Ca Ion WB) 1.11 1.05-1.25 [facility] CenterDashALEXANDRA [place] [id number] 09:18:00 Test Item Value Reference Range Interpretation Comments Ca Norm WB (test code = Ca Norm WB) 1.08 1.05-1.25 [facility]2020-11-23 09:18:00 Test Item Value Reference Range Interpretation Comments Glucose Lvl (test code = Glucose Lvl) 74 70-[address] [facility] [id number] 09:18:00 Test Item Value Reference Range Interpretation Comments BUN (test code = BUN) 5 7-22 [place] 447990-11-23 09:18:00 Test Item Value Reference Range Interpretation Comments Creatinine Lvl (test code = Creatinine 0.44 0.50-1.40 Lvl) [place] 447990-11-23 09:18:00 Test Item Value Reference Range Interpretation Comments Sodium Lvl (test code = Sodium Lvl) 138 135-145 [place] [address]-11-23 09:18:00 Test Item Value Reference Range Interpretation Comments Potassium Lvl (test code = Potassium 3.5 3.5-5.1 Lvl) [place] 447990-11-23 09:18:00 Test Item Value Reference Range Interpretation Comments Chloride Lvl (test code = Chloride Lvl) 108 95-109 [place] 447990-11-23 09:18:00 Test Item Value Reference Range Interpretation Comments CO2 (test code = CO2) 23 24-32 [place] 447990-11-23 09:18:00 Test Item Value Reference Range Interpretation Comments Calcium Lvl (test code = Calcium Lvl) 8.3 8.5-10.5 [place] 447990-11-23 09:18:00 Test Item Value Reference Range Interpretation Comments AGAP (test code = AGAP) 10.5 10.0-20.0 [place] 447990-11-23 09:18:00 Test Item Value Reference Range Interpretation Comments eGFR (test code = eGFR) [address] [place] 447990-11-23 09:18:00 Test Item Value Reference Range Interpretation Comments Calcium Lvl (test code = Calcium Lvl) 8.3 8.5-10.5 [place] 447990-11-23 09:18:00 Test Item Value Reference Range Interpretation Comments Total Protein (test code = Total 5.9 6.4-8.4 Protein) [place] 447990-11-23 09:18:00 Test Item Value Reference Range Interpretation Comments Albumin Lvl (test code = Albumin Lvl) 3.1 3.5-5.0 [place] 447990-11-23 09:18:00 Test Item Value Reference Range Interpretation Comments ALT (test code = ALT) 178 See_Comment [Auto mated message] The system which ge nerated this result transmit jeremías reference range : <=65. The reference range was not used to interpr et this result as vernell l/abnormal. [facility] [employer] [id number] 09:18:00 Test Item Value Reference Range Interpretation Comments AST (test code = AST) 92 See_Comment [Auto mated message] The system which ge nerated this result transmit jeremías reference range : <=37. The reference range was not used to interpr et this result as vernell l/abnormal. [facility] [employer] [id number] 09:18:00 Test Item Value Reference Range Interpretation Comments Alk Phos (test code = Alk Phos) 128 39-136 [facility] [employer] [id number] 09:18:00 Test Item Value Reference Range Interpretation Comments Bili Total (test code = Bili Total) 0.9 0.2-1.3 [facility] [id number] 09:18:00 Test Item Value Reference Range Interpretation Comments Bili Direct (test code 0.2 See_Comment [Aut omated message] The = Bili Direct) system which generated this result tra nsmitted reference range : <=0.3. The reference r daniel was not used to int erpret this result as vernell l/abnormal. [facility] [employer] [id number] 09:18:00 Test Item Value Reference Range Interpretation Comments Bili Indirect (test 0.7 See_Comment [Automa jeremías message] The code = Bili Indirect) system which generated this result tra nsmitted reference range : <=1.0. The reference r daniel was not used to int erpret this result as normal/abnormal . [facility] [employer] [id number] 09:18:00 Test Item Value Reference Range Interpretation Comments Globulin (test code = Globulin) 2.8 2.7-4.2 [facility] [employer] [id number] 09:18:00 Test Item Value Reference Range Interpretation Comments A/G Ratio (test code = A/G Ratio) 1.1 1 0.7-1.6 [facility] [id number] 09:18:00 Test Item Value Reference Range Interpretation Comments Magnesium Lvl (test code = Magnesium 1.8 1.8-2.4 Lvl) [facility] [id number] 09:18:00 Test Item Value Reference Range Interpretation Comments Phosphorus (test code = Phosphorus) 3.2 2.5-4.5 [facility]PxabnqhXVRKPELOZK9014-95-40 09:18:00 Test Item Value Reference Range Interpretation Comments WBC (test code = WBC) 3.9 3.7-10.4 [facility] CenterOzlydfsNQQZDXVPPJ8460-75-86 09:18:00 Test Item Value Reference Range Interpretation Comments RBC (test code = RBC) 3.47 4.20-5.40 [facility] CenterSseqjyeVDPZPQBQJU6280-06-40 09:18:00 Test Item Value Reference Range Interpretation Comments Hgb (test code = Hgb) 11.0 12.0-16.0 [place] 235960-11-23 09:18:00 Test Item Value Reference Range Interpretation Comments Hct (test code = Hct) 32.2 36.0-48.0 [facility] CenterCtlgdjcIMUHDCFTOY3454-40-62 09:18:00 Test Item Value Reference Range Interpretation Comments MCV (test code = MCV) 92.6 80.0-98.0 [facility] CenterBleezzcONIHHGDNUO8566-99-33 09:18:00 Test Item Value Reference Range Interpretation Comments MCH (test code = MCH) 31.7 pg 27.0-31.0 [facility] CenterAnkigdlDBCLPSGWVY0718-77-72 09:18:00 Test Item Value Reference Range Interpretation Comments MCHC (test code = MCHC) 34.2 32.0-36.0 [facility] CenterDfwcjixAUGLIXRNUX9932-95-75 09:18:00 Test Item Value Reference Range Interpretation Comments RDW (test code = RDW) 12.6 11.5-14.5 [facility] CenterXankzymTBMFHKDBBI9848-61-34 09:18:00 Test Item Value Reference Range Interpretation Comments Platelet (test code = Platelet) 160 133-450 [facility] CenterUpfmrnvZFZQQFUFZL7097-13-06 09:18:00 Test Item Value Reference Range Interpretation Comments MPV (test code = MPV) 9.7 7.4-10.4 [facility] CenterAvqlktiWSLUTELDYI3603-20-79 09:18:00 Test Item Value Reference Range Interpretation Comments PT (test code = PT) 15.1 s 12.0-14.7 [facility] CenterUzyhhltABPINEWPZM2519-90-18 09:18:00 Test Item Value Reference Range Interpretation Comments INR (test code = INR) 1.18 1 0.85-1.17 [place] [address]-11-23 09:18:00 Test Item Value Reference Range Interpretation Comments Segs (test code = Segs) 53.6 45.0-75.0 [place] [address]-11-23 09:18:00 Test Item Value Reference Range Interpretation Comments Lymphocytes (test code = Lymphocytes) 34.7 20.0-40.0 [place] [address]-11-23 09:18:00 Test Item Value Reference Range Interpretation Comments Monocytes (test code = Monocytes) 9.0 2.0-12.0 [place] [address]-11-23 09:18:00 Test Item Value Reference Range Interpretation Comments Eosinophils (test code = 1.9 See_Comment [A utomated message] The Eosinophils) system which ge nerated this result tra nsmitted reference range : <=4.0. The reference r daniel was not used to int erpret this result as normal/abnormal . [place] [address]-11-23 09:18:00 Test Item Value Reference Range Interpretation Comments Basophils (test code = 0.8 See_Comment [Aut omated message] The Basophils) system which ge nerated this result tra nsmitted reference range : <=1.0. The reference r daniel was not used to int erpret this result as normal/abnormal . [place] [address]-11-23 09:18:00 Test Item Value Reference Range Interpretation Comments Neutrophils # (test code = Neutrophils 2.1 1.5-8.1 #) [place] [address]-11-23 09:18:00 Test Item Value Reference Range Interpretation Comments Lymphocytes # (test code = Lymphocytes 1.3 1.0-5.5 #) [place] [address]-11-23 09:18:00 Test Item Value Reference Range Interpretation Comments Monocytes # (test code 0.3 See_Comment [Aut omated message] The = Monocytes #) system which generated this result tra nsmitted reference range : <=0.8. The reference r daniel was not used to int erpret this result as normal/abnormal . [place] [address]-11-23 09:18:00 Test Item Value Reference Range Interpretation Comments Eosinophils # (test code 0.1 See_Comment [A utomated message] The = Eosinophils #) system whic h generated this result tra nsmitted reference range : <=0.5. The reference r daniel was not used to int erpret this result as normal/abnormal . [facility] [id number] 09:18:00 Test Item Value Reference Range Interpretation Comments Ca Ion WB (test code = Ca Ion WB) 1.11 1.05-1.25 [facility]RO[facility] [id number] 09:18:00 Test Item Value Reference Range Interpretation Comments Ca Norm WB (test code = Ca Norm WB) 1.08 1.05-1.25 [facility]2020-11-23 09:18:00 Test Item Value Reference Range Interpretation Comments Glucose Lvl (test code = Glucose Lvl) 74 70-99 [facility]2020-11-23 09:18:00 Test Item Value Reference Range Interpretation Comments BUN (test code = BUN) 5 7-22 [facility]2020-11-23 09:18:00 Test Item Value Reference Range Interpretation Comments Creatinine Lvl (test code = Creatinine 0.44 0.50-1.40 Lvl) [facility]2020-11-23 09:18:00 Test Item Value Reference Range Interpretation Comments Sodium Lvl (test code = Sodium Lvl) 138 135-145 [facility] [id number] 09:18:00 Test Item Value Reference Range Interpretation Comments Potassium Lvl (test code = Potassium 3.5 3.5-5.1 Lvl) [facility] [id number] 09:18:00 Test Item Value Reference Range Interpretation Comments Chloride Lvl (test code = Chloride Lvl) 108 95-109 [place] 447990-11-23 09:18:00 Test Item Value Reference Range Interpretation Comments CO2 (test code = CO2) 23 24-[address] [facility] [id number] 09:18:00 Test Item Value Reference Range Interpretation Comments Calcium Lvl (test code = Calcium Lvl) 8.3 8.5-10.[address] [facility] [id number] 09:18:00 Test Item Value Reference Range Interpretation Comments AGAP (test code = AGAP) 10.5 10.0-20.0 [address]11-23 09:18:00 Test Item Value Reference Range Interpretation Comments eGFR (test code = eGFR) 134 [place] [address]-11-23 09:18:00 Test Item Value Reference Range Interpretation Comments Calcium Lvl (test code = Calcium Lvl) 8.3 8.5-10.5 [address]11-23 09:18:00 Test Item Value Reference Range Interpretation Comments Total Protein (test code = Total 5.9 6.4-8.4 Protein) [address]11-23 09:18:00 Test Item Value Reference Range Interpretation Comments Albumin Lvl (test code = Albumin Lvl) 3.1 3.5-5.0 [address]11-23 09:18:00 Test Item Value Reference Range Interpretation Comments ALT (test code = ALT) 178 See_Comment [Auto mated message] The system which ge nerated this result transmit jeremías reference range : <=65. The reference range was not used to interpr et this result as vernell l/abnormal. [address]11-23 09:18:00 Test Item Value Reference Range Interpretation Comments AST (test code = AST) 92 See_Comment [Auto mated message] The system which ge nerated this result transmit jeremías reference range : <=37. The reference range was not used to interpr et this result as vernell l/abnormal. [address]11-23 09:18:00 Test Item Value Reference Range Interpretation Comments Alk Phos (test code = Alk Phos) 128 39-136 [place] [address]-11-23 09:18:00 Test Item Value Reference Range Interpretation Comments Bili Total (test code = Bili Total) 0.9 0.2-1.3 [address]11-23 09:18:00 Test Item Value Reference Range Interpretation Comments Bili Direct (test code 0.2 See_Comment [Aut omated message] The = Bili Direct) system which generated this result tra nsmitted reference range : <=0.3. The reference r daniel was not used to int erpret this result as vernell l/abnormal. [facility] [id number] 09:18:00 Test Item Value Reference Range Interpretation Comments Bili Indirect (test 0.7 See_Comment [Automa jeremías message] The code = Bili Indirect) system which generated this result tra nsmitted reference range : <=1.0. The reference r daniel was not used to int erpret this result as normal/abnormal . [facility] [id number] 09:18:00 Test Item Value Reference Range Interpretation Comments Globulin (test code = Globulin) 2.8 2.7-4.2 [place] 447990-11-23 09:18:00 Test Item Value Reference Range Interpretation Comments A/G Ratio (test code = A/G Ratio) 1.1 1 0.7-1.6 [place] 447990-11-23 09:18:00 Test Item Value Reference Range Interpretation Comments Magnesium Lvl (test code = Magnesium 1.8 1.8-2.4 Lvl) [facility]2020-11-23 09:18:00 Test Item Value Reference Range Interpretation Comments Phosphorus (test code = Phosphorus) 3.2 2.5-4.5 [place] 235960-11-23 09:18:00 Test Item Value Reference Range Interpretation Comments WBC (test code = WBC) 3.9 3.7-10.4 [facility] CenterEuzrblnOESAUUNKBW4458-02-87 09:18:00 Test Item Value Reference Range Interpretation Comments RBC (test code = RBC) 3.47 4.20-5.40 [facility] CenterTkbxqruCYYWFLFDSD8382-45-38 09:18:00 Test Item Value Reference Range Interpretation Comments Hgb (test code = Hgb) 11.0 12.0-16.0 [place] [address]-11-23 09:18:00 Test Item Value Reference Range Interpretation Comments Hct (test code = Hct) 32.2 36.0-48.0 [place] [address]-11-23 09:18:00 Test Item Value Reference Range Interpretation Comments MCV (test code = MCV) 92.6 80.0-98.0 [place] [address]-11-23 09:18:00 Test Item Value Reference Range Interpretation Comments MCH (test code = MCH) 31.7 pg 27.0-31.0 [place] 235960-11-23 09:18:00 Test Item Value Reference Range Interpretation Comments MCHC (test code = MCHC) 34.2 32.0-36.0 [place] 235960-11-23 09:18:00 Test Item Value Reference Range Interpretation Comments RDW (test code = RDW) 12.6 11.5-14.5 [place] [address]-11-23 09:18:00 Test Item Value Reference Range Interpretation Comments Platelet (test code = Platelet) 160 133-450 [facility] CenterOsyqzgyQDFGQBKJDI0978-12-40 09:18:00 Test Item Value Reference Range Interpretation Comments MPV (test code = MPV) 9.7 7.4-10.4 [place] 235960-11-23 09:18:00 Test Item Value Reference Range Interpretation Comments PT (test code = PT) 15.1 s 12.0-14.7 [place] [address]-11-23 09:18:00 Test Item Value Reference Range Interpretation Comments INR (test code = INR) 1.18 1 0.85-1.17 [place] 235960-11-23 09:18:00 Test Item Value Reference Range Interpretation Comments Segs (test code = Segs) 53.6 45.0-75.0 [place] 235960-11-23 09:18:00 Test Item Value Reference Range Interpretation Comments Lymphocytes (test code = Lymphocytes) 34.7 20.0-40.0 [place] [address]-11-23 09:18:00 Test Item Value Reference Range Interpretation Comments Monocytes (test code = Monocytes) 9.0 2.0-12.0 [place] [address]-11-23 09:18:00 Test Item Value Reference Range Interpretation Comments Eosinophils (test code = 1.9 See_Comment [A utomated message] The Eosinophils) system which ge nerated this result tra nsmitted reference range : <=4.0. The reference r daniel was not used to int erpret this result as normal/abnormal . [place] [address]-11-23 09:18:00 Test Item Value Reference Range Interpretation Comments Basophils (test code = 0.8 See_Comment [Aut omated message] The Basophils) system which ge nerated this result tra nsmitted reference range : <=1.0. The reference r daniel was not used to int erpret this result as normal/abnormal . [place] [address]-11-23 09:18:00 Test Item Value Reference Range Interpretation Comments Neutrophils # (test code = Neutrophils 2.1 1.5-8.1 #) [place] [address]-11-23 09:18:00 Test Item Value Reference Range Interpretation Comments Lymphocytes # (test code = Lymphocytes 1.3 1.0-5.5 #) [place] 235960-11-23 09:18:00 Test Item Value Reference Range Interpretation Comments Monocytes # (test code 0.3 See_Comment [Aut omated message] The = Monocytes #) system which generated this result tra nsmitted reference range : <=0.8. The reference r daniel was not used to int erpret this result as normal/abnormal . [place] [address]-11-23 09:18:00 Test Item Value Reference Range Interpretation Comments Eosinophils # (test code 0.1 See_Comment [A utomated message] The = Eosinophils #) system whic h generated this result tra nsmitted reference range : <=0.5. The reference r daniel was not used to int erpret this result as normal/abnormal . [place] 024340-11-23 09:18:00 Test Item Value Reference Range Interpretation Comments Ca Ion WB (test code = Ca Ion WB) 1.11 1.05-1.25 [place] 024340-11-23 09:18:00 Test Item Value Reference Range Interpretation Comments Ca Norm WB (test code = Ca Norm WB) 1.08 1.05-1.25 [place] 447990-11-23 09:18:00 Test Item Value Reference Range Interpretation Comments Glucose Lvl (test code = Glucose Lvl) 74 70-99 [place] 447990-11-23 09:18:00 Test Item Value Reference Range Interpretation Comments BUN (test code = BUN) 5 7-22 [place] 447990-11-23 09:18:00 Test Item Value Reference Range Interpretation Comments Creatinine Lvl (test code = Creatinine 0.44 0.50-1.40 Lvl) [place] 447990-11-23 09:18:00 Test Item Value Reference Range Interpretation Comments Sodium Lvl (test code = Sodium Lvl) 138 135-145 [place] [address]-11-23 09:18:00 Test Item Value Reference Range Interpretation Comments Potassium Lvl (test code = Potassium 3.5 3.5-5.1 Lvl) [place] [address]-11-23 09:18:00 Test Item Value Reference Range Interpretation Comments Chloride Lvl (test code = Chloride Lvl) 108 95-109 [place] [address]-11-23 09:18:00 Test Item Value Reference Range Interpretation Comments CO2 (test code = CO2) 23 24-32 [place] [address]-11-23 09:18:00 Test Item Value Reference Range Interpretation Comments Calcium Lvl (test code = Calcium Lvl) 8.3 8.5-10.5 [place] [address]-11-23 09:18:00 Test Item Value Reference Range Interpretation Comments AGAP (test code = AGAP) 10.5 10.0-20.0 [address]11-23 09:18:00 Test Item Value Reference Range Interpretation Comments eGFR (test code = eGFR) 134 [place] [address]-11-23 09:18:00 Test Item Value Reference Range Interpretation Comments Calcium Lvl (test code = Calcium Lvl) 8.3 8.5-10.5 [place] [address]-11-23 09:18:00 Test Item Value Reference Range Interpretation Comments Total Protein (test code = Total 5.9 6.4-8.4 Protein) [place] [address]-11-23 09:18:00 Test Item Value Reference Range Interpretation Comments Albumin Lvl (test code = Albumin Lvl) 3.1 3.5-5.0 [place] [address]-11-23 09:18:00 Test Item Value Reference Range Interpretation Comments ALT (test code = ALT) 178 See_Comment [Auto mated message] The system which ge nerated this result transmit jeremías reference range : <=65. The reference range was not used to interpr et this result as vernlel l/abnormal. [address]11-23 09:18:00 Test Item Value Reference Range Interpretation Comments AST (test code = AST) 92 See_Comment [Auto mated message] The system which ge nerated this result transmit jeremías reference range : <=37. The reference range was not used to interpr et this result as vernell l/abnormal. [address]11-23 09:18:00 Test Item Value Reference Range Interpretation Comments Alk Phos (test code = Alk Phos) 128 39-136 [place] [address]-11-23 09:18:00 Test Item Value Reference Range Interpretation Comments Bili Total (test code = Bili Total) 0.9 0.2-1.3 [address]11-23 09:18:00 Test Item Value Reference Range Interpretation Comments Bili Direct (test code 0.2 See_Comment [Aut omated message] The = Bili Direct) system which generated this result tra nsmitted reference range : <=0.3. The reference r daniel was not used to int erpret this result as vernell l/abnormal. [address]11-23 09:18:00 Test Item Value Reference Range Interpretation Comments Bili Indirect (test 0.7 See_Comment [Automa jeremías message] The code = Bili Indirect) system which generated this result tra nsmitted reference range : <=1.0. The reference r daniel was not used to int erpret this result as normal/abnormal . [address]11-23 09:18:00 Test Item Value Reference Range Interpretation Comments Globulin (test code = Globulin) 2.8 2.7-4.2 [address]11-23 09:18:00 Test Item Value Reference Range Interpretation Comments A/G Ratio (test code = A/G Ratio) 1.1 1 0.7-1.6 [address]11-23 09:18:00 Test Item Value Reference Range Interpretation Comments Magnesium Lvl (test code = Magnesium 1.8 1.8-2.4 Lvl) [address]11-23 09:18:00 Test Item Value Reference Range Interpretation Comments Phosphorus (test code = Phosphorus) 3.2 2.5-4.[address]11-23 09:18:00 Test Item Value Reference Range Interpretation Comments WBC (test code = WBC) 3.9 3.7-10.[address]11-23 09:18:00 Test Item Value Reference Range Interpretation Comments RBC (test code = RBC) 3.47 4.20-5.40 [facility] CenterBxwlkhsLSITNEJGET0744-75-83 09:18:00 Test Item Value Reference Range Interpretation Comments Hgb (test code = Hgb) 11.0 12.0-16.0 [facility] CenterJjolloeBINUBNKNJI9842-80-75 09:18:00 Test Item Value Reference Range Interpretation Comments Hct (test code = Hct) 32.2 36.0-48.0 [facility] CenterCaytwmdAEZFJQYIDK7394-54-39 09:18:00 Test Item Value Reference Range Interpretation Comments MCV (test code = MCV) 92.6 80.0-98.0 [facility] CenterEgaarruOPIPWZWFYR6831-56-01 09:18:00 Test Item Value Reference Range Interpretation Comments MCH (test code = MCH) 31.7 pg 27.0-31.0 [facility] CenterBlgjlwlIPIUMWPVFT5236-17-17 09:18:00 Test Item Value Reference Range Interpretation Comments MCHC (test code = MCHC) 34.2 32.0-36.0 [facility] CenterDkcopcbCOCUQZYGUF0041-89-70 09:18:00 Test Item Value Reference Range Interpretation Comments RDW (test code = RDW) 12.6 11.5-14.5 [facility] CenterTzwjeibYKIEUCQPYC5678-51-33 09:18:00 Test Item Value Reference Range Interpretation Comments Platelet (test code = Platelet) 160 133-450 [facility] CenterUlpnevmGWSVBOIKNO0412-38-04 09:18:00 Test Item Value Reference Range Interpretation Comments MPV (test code = MPV) 9.7 7.4-10.4 [facility] CenterPsvlxipKQYOIQKIFF7170-27-17 09:18:00 Test Item Value Reference Range Interpretation Comments PT (test code = PT) 15.1 s 12.0-14.7 [facility] CenterJenscbyCVJJXLYNLU5140-81-26 09:18:00 Test Item Value Reference Range Interpretation Comments INR (test code = INR) 1.18 1 0.85-1.17 [facility] CenterSdltovoXOAOKQCYKU3079-97-79 09:18:00 Test Item Value Reference Range Interpretation Comments Segs (test code = Segs) 53.6 45.0-75.0 [facility] CenterAhjawpbBHDKFOEMTD2540-05-62 09:18:00 Test Item Value Reference Range Interpretation Comments Lymphocytes (test code = Lymphocytes) 34.7 20.0-40.0 [place] [address]-11-23 09:18:00 Test Item Value Reference Range Interpretation Comments Monocytes (test code = Monocytes) 9.0 2.0-12.0 [place] 235960-11-23 09:18:00 Test Item Value Reference Range Interpretation Comments Eosinophils (test code = 1.9 See_Comment [A utomated message] The Eosinophils) system which ge nerated this result tra nsmitted reference range : <=4.0. The reference r daniel was not used to int erpret this result as normal/abnormal . [place] 235960-11-23 09:18:00 Test Item Value Reference Range Interpretation Comments Basophils (test code = 0.8 See_Comment [Aut omated message] The Basophils) system which ge nerated this result tra nsmitted reference range : <=1.0. The reference r daniel was not used to int erpret this result as normal/abnormal . [place] 235960-11-23 09:18:00 Test Item Value Reference Range Interpretation Comments Neutrophils # (test code = Neutrophils 2.1 1.5-8.1 #) [place] 235960-11-23 09:18:00 Test Item Value Reference Range Interpretation Comments Lymphocytes # (test code = Lymphocytes 1.3 1.0-5.5 #) [place] 235960-11-23 09:18:00 Test Item Value Reference Range Interpretation Comments Monocytes # (test code 0.3 See_Comment [Aut omated message] The = Monocytes #) system which generated this result tra nsmitted reference range : <=0.8. The reference r danile was not used to int erpret this result as normal/abnormal . [place] 235960-11-23 09:18:00 Test Item Value Reference Range Interpretation Comments Eosinophils # (test code 0.1 See_Comment [A utomated message] The = Eosinophils #) system whic h generated this result tra nsmitted reference range : <=0.5. The reference r daniel was not used to int erpret this result as normal/abnormal . [id number]:00 Test Item Value Reference Range Interpretation Comments Ca Ion WB (test code = Ca Ion WB) 1.11 1.05-1.25 [facility]YALEXANDR[facility] [place] [id number] 09:18:00 Test Item Value Reference Range Interpretation Comments Ca Norm WB (test code = Ca Norm WB) 1.08 1.05-1.25 [place] 447990-11-23 09:18:00 Test Item Value Reference Range Interpretation Comments Glucose Lvl (test code = Glucose Lvl) 74 70-99 [place] 447990-11-23 09:18:00 Test Item Value Reference Range Interpretation Comments BUN (test code = BUN) 5 7-22 [place] 447990-11-23 09:18:00 Test Item Value Reference Range Interpretation Comments Creatinine Lvl (test code = Creatinine 0.44 0.50-1.40 Lvl) [place] 447990-11-23 09:18:00 Test Item Value Reference Range Interpretation Comments Sodium Lvl (test code = Sodium Lvl) 138 135-145 [place] 447990-11-23 09:18:00 Test Item Value Reference Range Interpretation Comments Potassium Lvl (test code = Potassium 3.5 3.5-5.1 Lvl) [place] 447990-11-23 09:18:00 Test Item Value Reference Range Interpretation Comments Chloride Lvl (test code = Chloride Lvl) 108 95-109 [facility]2020-11-23 09:18:00 Test Item Value Reference Range Interpretation Comments CO2 (test code = CO2) 23 24-32 [place] 447990-11-23 09:18:00 Test Item Value Reference Range Interpretation Comments Calcium Lvl (test code = Calcium Lvl) 8.3 8.5-10.5 [place] 447990-11-23 09:18:00 Test Item Value Reference Range Interpretation Comments AGAP (test code = AGAP) 10.5 10.0-20.0 [place] 447990-11-23 09:18:00 Test Item Value Reference Range Interpretation Comments eGFR (test code = eGFR) 134 [place] 447990-11-23 09:18:00 Test Item Value Reference Range Interpretation Comments Calcium Lvl (test code = Calcium Lvl) 8.3 8.5-10.5 [place] 447990-11-23 09:18:00 Test Item Value Reference Range Interpretation Comments Total Protein (test code = Total 5.9 6.4-8.4 Protein) [facility] [id number] 09:18:00 Test Item Value Reference Range Interpretation Comments Albumin Lvl (test code = Albumin Lvl) 3.1 3.5-5.0 [address]11-23 09:18:00 Test Item Value Reference Range Interpretation Comments ALT (test code = ALT) 178 See_Comment [Auto mated message] The system which ge nerated this result transmit jeremías reference range : <=65. The reference range was not used to interpr et this result as vernell l/abnormal. [facility] [id number] 09:18:00 Test Item Value Reference Range Interpretation Comments AST (test code = AST) 92 See_Comment [Auto mated message] The system which ge nerated this result transmit jeremías reference range : <=37. The reference range was not used to interpr et this result as vernell l/abnormal. [facility] [id number] 09:18:00 Test Item Value Reference Range Interpretation Comments Alk Phos (test code = Alk Phos) 128 39-136 [facility] [id number] 09:18:00 Test Item Value Reference Range Interpretation Comments Bili Total (test code = Bili Total) 0.9 0.2-1.3 [facility] [id number] 09:18:00 Test Item Value Reference Range Interpretation Comments Bili Direct (test code 0.2 See_Comment [Aut omated message] The = Bili Direct) system which generated this result tra nsmitted reference range : <=0.3. The reference r daniel was not used to int erpret this result as vernell l/abnormal. [facility] [id number] 09:18:00 Test Item Value Reference Range Interpretation Comments Bili Indirect (test 0.7 See_Comment [Automa jeremías message] The code = Bili Indirect) system which generated this result tra nsmitted reference range : <=1.0. The reference r daniel was not used to int erpret this result as normal/abnormal . [facility] [id number] 09:18:00 Test Item Value Reference Range Interpretation Comments Globulin (test code = Globulin) 2.8 2.7-4.2 [facility]2020-11-23 09:18:00 Test Item Value Reference Range Interpretation Comments A/G Ratio (test code = A/G Ratio) 1.1 1 0.7-1.6 [facility]2020-11-23 09:18:00 Test Item Value Reference Range Interpretation Comments Magnesium Lvl (test code = Magnesium 1.8 1.8-2.4 Lvl) [facility]2020-11-23 09:18:00 Test Item Value Reference Range Interpretation Comments Phosphorus (test code = Phosphorus) 3.2 2.5-4.5 [facility]YixrqnlTCLDYGRNIJ6177-90-07 09:18:00 Test Item Value Reference Range Interpretation Comments WBC (test code = WBC) 3.9 3.7-10.4 [facility] CenterIpewazoZPSNPOHVJN1149-42-77 09:18:00 Test Item Value Reference Range Interpretation Comments RBC (test code = RBC) 3.47 4.20-5.40 [facility] CenterJgsermgTYPLUBGJJG1389-93-98 09:18:00 Test Item Value Reference Range Interpretation Comments Hgb (test code = Hgb) 11.0 12.0-16.0 [place] 235960-11-23 09:18:00 Test Item Value Reference Range Interpretation Comments Hct (test code = Hct) 32.2 36.0-48.0 [facility] CenterEnahyyjAAOCXLIVNV1746-23-60 09:18:00 Test Item Value Reference Range Interpretation Comments MCV (test code = MCV) 92.6 80.0-98.0 [place] 235960-11-23 09:18:00 Test Item Value Reference Range Interpretation Comments MCH (test code = MCH) 31.7 pg 27.0-31.0 [place] [address]-11-23 09:18:00 Test Item Value Reference Range Interpretation Comments MCHC (test code = MCHC) 34.2 32.0-36.0 [facility] CenterBhgtoxyFDCSZTYQOZ2729-89-38 09:18:00 Test Item Value Reference Range Interpretation Comments RDW (test code = RDW) 12.6 11.5-14.5 [facility] CenterWotevhgNZRJZNBYZM9617-26-74 09:18:00 Test Item Value Reference Range Interpretation Comments Platelet (test code = Platelet) 160 133-450 [place] 235960-11-23 09:18:00 Test Item Value Reference Range Interpretation Comments MPV (test code = MPV) 9.7 7.4-10.4 [facility] CenterFtkqmjlZMIKVIXAMX7159-93-31 09:18:00 Test Item Value Reference Range Interpretation Comments PT (test code = PT) 15.1 s 12.0-14.7 [facility] CenterIugocmsDATDALIEUJ4137-44-86 09:18:00 Test Item Value Reference Range Interpretation Comments INR (test code = INR) 1.18 1 0.85-1.17 [place] 235960-11-23 09:18:00 Test Item Value Reference Range Interpretation Comments Segs (test code = Segs) 53.6 45.0-75.0 [place] 235960-11-23 09:18:00 Test Item Value Reference Range Interpretation Comments Lymphocytes (test code = Lymphocytes) 34.7 20.0-40.0 [place] 235960-11-23 09:18:00 Test Item Value Reference Range Interpretation Comments Monocytes (test code = Monocytes) 9.0 2.0-12.0 [facility] CenterOcxcgytBVASAWGAXF8535-83-08 09:18:00 Test Item Value Reference Range Interpretation Comments Eosinophils (test code = 1.9 See_Comment [A utomated message] The Eosinophils) system which ge nerated this result tra nsmitted reference range : <=4.0. The reference r daniel was not used to int erpret this result as normal/abnormal . [facility] CenterDxtdkrfTNXCZVFTVP8169-80-20 09:18:00 Test Item Value Reference Range Interpretation Comments Basophils (test code = 0.8 See_Comment [Aut omated message] The Basophils) system which ge nerated this result tra nsmitted reference range : <=1.0. The reference r daniel was not used to int erpret this result as normal/abnormal . [place] 235960-11-23 09:18:00 Test Item Value Reference Range Interpretation Comments Neutrophils # (test code = Neutrophils 2.1 1.5-8.1 #) [place] [address]-11-23 09:18:00 Test Item Value Reference Range Interpretation Comments Lymphocytes # (test code = Lymphocytes 1.3 1.0-5.5 #) [place] 235960-11-23 09:18:00 Test Item Value Reference Range Interpretation Comments Monocytes # (test code 0.3 See_Comment [Aut omated message] The = Monocytes #) system which generated this result tra nsmitted reference range : <=0.8. The reference r daniel was not used to int erpret this result as normal/abnormal . [facility] CenterNnwjzyzWKLYALCVKA4433-28-72 09:18:00 Test Item Value Reference Range Interpretation Comments Eosinophils # (test code 0.1 See_Comment [A utomated message] The = Eosinophils #) system whic h generated this result tra nsmitted reference range : <=0.5. The reference r daniel was not used to int erpret this result as normal/abnormal . [facility] [id number] 09:18:00 Test Item Value Reference Range Interpretation Comments Ca Ion WB (test code = Ca Ion WB) 1.11 1.05-1.25 [place] 024340-11-23 09:18:00 Test Item Value Reference Range Interpretation Comments Ca Norm WB (test code = Ca Norm WB) 1.08 1.05-1.25 [place] [address]-11-23 09:18:00 Test Item Value Reference Range Interpretation Comments Glucose Lvl (test code = Glucose Lvl) 74 70-99 [place] 447990-11-23 09:18:00 Test Item Value Reference Range Interpretation Comments BUN (test code = BUN) 5 7-22 [place] [address]-11-23 09:18:00 Test Item Value Reference Range Interpretation Comments Creatinine Lvl (test code = Creatinine 0.44 0.50-1.40 Lvl) [place] [address]-11-23 09:18:00 Test Item Value Reference Range Interpretation Comments Sodium Lvl (test code = Sodium Lvl) 138 135-145 [place] 447990-11-23 09:18:00 Test Item Value Reference Range Interpretation Comments Potassium Lvl (test code = Potassium 3.5 3.5-5.1 Lvl) [place] [address]-11-23 09:18:00 Test Item Value Reference Range Interpretation Comments Chloride Lvl (test code = Chloride Lvl) 108 95-109 [place] 447990-11-23 09:18:00 Test Item Value Reference Range Interpretation Comments CO2 (test code = CO2) 23 24-32 [facility]2020-11-23 09:18:00 Test Item Value Reference Range Interpretation Comments Calcium Lvl (test code = Calcium Lvl) 8.3 8.5-10.5 [place] 447990-11-23 09:18:00 Test Item Value Reference Range Interpretation Comments AGAP (test code = AGAP) 10.5 10.0-20.0 [place] [address]-11-23 09:18:00 Test Item Value Reference Range Interpretation Comments eGFR (test code = eGFR) 134 [place] [address]-11-23 09:18:00 Test Item Value Reference Range Interpretation Comments Calcium Lvl (test code = Calcium Lvl) 8.3 8.5-10.5 [place] 447990-11-23 09:18:00 Test Item Value Reference Range Interpretation Comments Total Protein (test code = Total 5.9 6.4-8.4 Protein) [place] [address]-11-23 09:18:00 Test Item Value Reference Range Interpretation Comments Albumin Lvl (test code = Albumin Lvl) 3.1 3.5-5.[address] [facility] [id number] 09:18:00 Test Item Value Reference Range Interpretation Comments ALT (test code = ALT) 178 See_Comment [Auto mated message] The system which ge nerated this result transmit jeremías reference range : <=65. The reference range was not used to interpr et this result as vernell l/abnormal. [facility] [id number] 09:18:00 Test Item Value Reference Range Interpretation Comments AST (test code = AST) 92 See_Comment [Auto mated message] The system which ge nerated this result transmit jeremías reference range : <=37. The reference range was not used to interpr et this result as vernell l/abnormal. [facility] [id number] 09:18:00 Test Item Value Reference Range Interpretation Comments Alk Phos (test code = Alk Phos) 128 39-[address] [facility] [id number] 09:18:00 Test Item Value Reference Range Interpretation Comments Bili Total (test code = Bili Total) 0.9 0.2-1.[address] [facility] [id number] 09:18:00 Test Item Value Reference Range Interpretation Comments Bili Direct (test code 0.2 See_Comment [Aut omated message] The = Bili Direct) system which generated this result tra nsmitted reference range : <=0.3. The reference r daniel was not used to int erpret this result as vernell l/abnormal. [place] [address]-11-23 09:18:00 Test Item Value Reference Range Interpretation Comments Bili Indirect (test 0.7 See_Comment [Automa jeremías message] The code = Bili Indirect) system which generated this result tra nsmitted reference range : <=1.0. The reference r daniel was not used to int erpret this result as normal/abnormal . [place] 447990-11-23 09:18:00 Test Item Value Reference Range Interpretation Comments Globulin (test code = Globulin) 2.8 2.7-4.2 [address]11-23 09:18:00 Test Item Value Reference Range Interpretation Comments A/G Ratio (test code = A/G Ratio) 1.1 1 0.7-1.6 [address]11-23 09:18:00 Test Item Value Reference Range Interpretation Comments Magnesium Lvl (test code = Magnesium 1.8 1.8-2.4 Lvl) [address]11-23 09:18:00 Test Item Value Reference Range Interpretation Comments Phosphorus (test code = Phosphorus) 3.2 2.5-4.5 [place] [address]-11-23 09:18:00 Test Item Value Reference Range Interpretation Comments WBC (test code = WBC) 3.9 3.7-10.[address]11-23 09:18:00 Test Item Value Reference Range Interpretation Comments RBC (test code = RBC) 3.47 4.20-5.[address]11-23 09:18:00 Test Item Value Reference Range Interpretation Comments Hgb (test code = Hgb) 11.0 12.0-16.[address]11-23 09:18:00 Test Item Value Reference Range Interpretation Comments Hct (test code = Hct) 32.2 36.0-48.[address]11-23 09:18:00 Test Item Value Reference Range Interpretation Comments MCV (test code = MCV) 92.6 80.0-98.0 [facility] CenterHrtlimlKFYPDWPMIR9739-82-57 09:18:00 Test Item Value Reference Range Interpretation Comments MCH (test code = MCH) 31.7 pg 27.0-31.0 [facility] CenterYaxwqetJCKGVFGCGL5695-30-43 09:18:00 Test Item Value Reference Range Interpretation Comments MCHC (test code = MCHC) 34.2 32.0-36.0 [place] 235960-11-23 09:18:00 Test Item Value Reference Range Interpretation Comments RDW (test code = RDW) 12.6 11.5-14.5 [facility] CenterJcbahqwGMATCQWNFJ2343-21-08 09:18:00 Test Item Value Reference Range Interpretation Comments Platelet (test code = Platelet) 160 133-450 [facility] CenterSpcfbdjQSGYLYWKSJ1581-54-82 09:18:00 Test Item Value Reference Range Interpretation Comments MPV (test code = MPV) 9.7 7.4-10.4 [place] 235960-11-23 09:18:00 Test Item Value Reference Range Interpretation Comments PT (test code = PT) 15.1 s 12.0-14.7 [facility] CenterHnerlirKSDHEWGKQD8757-07-63 09:18:00 Test Item Value Reference Range Interpretation Comments INR (test code = INR) 1.18 1 0.85-1.17 [place] [address]-11-23 09:18:00 Test Item Value Reference Range Interpretation Comments Segs (test code = Segs) 53.6 45.0-75.0 [place] 235960-11-23 09:18:00 Test Item Value Reference Range Interpretation Comments Lymphocytes (test code = Lymphocytes) 34.7 20.0-40.0 [place] 235960-11-23 09:18:00 Test Item Value Reference Range Interpretation Comments Monocytes (test code = Monocytes) 9.0 2.0-12.0 [place] 235960-11-23 09:18:00 Test Item Value Reference Range Interpretation Comments Eosinophils (test code = 1.9 See_Comment [A utomated message] The Eosinophils) system which ge nerated this result tra nsmitted reference range : <=4.0. The reference r daniel was not used to int erpret this result as normal/abnormal . [place] 235960-11-23 09:18:00 Test Item Value Reference Range Interpretation Comments Basophils (test code = 0.8 See_Comment [Aut omated message] The Basophils) system which ge nerated this result tra nsmitted reference range : <=1.0. The reference r daniel was not used to int erpret this result as normal/abnormal . [facility] CenterIwitybtLCCUKBLULH6549-69-93 09:18:00 Test Item Value Reference Range Interpretation Comments Neutrophils # (test code = Neutrophils 2.1 1.5-8.1 #) [facility] CenterQezaecdEMVNKLYGCL8680-03-94 09:18:00 Test Item Value Reference Range Interpretation Comments Lymphocytes # (test code = Lymphocytes 1.3 1.0-5.5 #) [facility] CenterWbflpdjTCGWFIFYTG0803-13-30 09:18:00 Test Item Value Reference Range Interpretation Comments Monocytes # (test code 0.3 See_Comment [Aut omated message] The = Monocytes #) system which generated this result tra nsmitted reference range : <=0.8. The reference r daniel was not used to int erpret this result as normal/abnormal . [facility] CenterAafwqfoORKFQPOBDZ7261-72-83 09:18:00 Test Item Value Reference Range Interpretation Comments Eosinophils # (test code 0.1 See_Comment [A utomated message] The = Eosinophils #) system whic h generated this result tra nsmitted reference range : <=0.5. The reference r daniel was not used to int erpret this result as normal/abnormal . [facility] [id number] 09:18:00 Test Item Value Reference Range Interpretation Comments Ca Ion WB (test code = Ca Ion WB) 1.11 1.05-1.[address] [facility] [address] HospitalClinkleROID [id number] 09:18:00 Test Item Value Reference Range Interpretation Comments Ca Norm WB (test code = Ca Norm WB) 1.08 1.05-1.[address] [facility] [id number] 09:18:00 Test Item Value Reference Range Interpretation Comments Glucose Lvl (test code = Glucose Lvl) 74 70-[address] [facility] [id number] 09:18:00 Test Item Value Reference Range Interpretation Comments BUN (test code = BUN) 5 7-22 [place] [address]-11-23 09:18:00 Test Item Value Reference Range Interpretation Comments Creatinine Lvl (test code = Creatinine 0.44 0.50-1.40 Lvl) [place] 447990-11-23 09:18:00 Test Item Value Reference Range Interpretation Comments Sodium Lvl (test code = Sodium Lvl) 138 135-145 [place] 447990-11-23 09:18:00 Test Item Value Reference Range Interpretation Comments Potassium Lvl (test code = Potassium 3.5 3.5-5.1 Lvl) [place] [address]-11-23 09:18:00 Test Item Value Reference Range Interpretation Comments Chloride Lvl (test code = Chloride Lvl) 108 95-109 [place] 447990-11-23 09:18:00 Test Item Value Reference Range Interpretation Comments CO2 (test code = CO2) 23 24-32 [place] [address]-11-23 09:18:00 Test Item Value Reference Range Interpretation Comments Calcium Lvl (test code = Calcium Lvl) 8.3 8.5-10.5 [place] 447990-11-23 09:18:00 Test Item Value Reference Range Interpretation Comments AGAP (test code = AGAP) 10.5 10.0-20.0 [place] 447990-11-23 09:18:00 Test Item Value Reference Range Interpretation Comments eGFR (test code = eGFR) 134 [place] 447990-11-23 09:18:00 Test Item Value Reference Range Interpretation Comments Calcium Lvl (test code = Calcium Lvl) 8.3 8.5-10.5 [place] [address]-11-23 09:18:00 Test Item Value Reference Range Interpretation Comments Total Protein (test code = Total 5.9 6.4-8.4 Protein) [place] [address]-11-23 09:18:00 Test Item Value Reference Range Interpretation Comments Albumin Lvl (test code = Albumin Lvl) 3.1 3.5-5.0 [place] [address]-11-23 09:18:00 Test Item Value Reference Range Interpretation Comments ALT (test code = ALT) 178 See_Comment [Auto mated message] The system which ge nerated this result transmit jeremías reference range : <=65. The reference range was not used to interpr et this result as vernell l/abnormal. [facility] [employer] [id number] 09:18:00 Test Item Value Reference Range Interpretation Comments AST (test code = AST) 92 See_Comment [Auto mated message] The system which ge nerated this result transmit jeremías reference range : <=37. The reference range was not used to interpr et this result as vernell l/abnormal. [facility] [id number] 09:18:00 Test Item Value Reference Range Interpretation Comments Alk Phos (test code = Alk Phos) 128 39-136 [facility] [employer] [id number] 09:18:00 Test Item Value Reference Range Interpretation Comments Bili Total (test code = Bili Total) 0.9 0.2-1.3 [facility] [id number] 09:18:00 Test Item Value Reference Range Interpretation Comments Bili Direct (test code 0.2 See_Comment [Aut omated message] The = Bili Direct) system which generated this result tra nsmitted reference range : <=0.3. The reference r daniel was not used to int erpret this result as vernell l/abnormal. [facility] [employer] [id number] 09:18:00 Test Item Value Reference Range Interpretation Comments Bili Indirect (test 0.7 See_Comment [Automa jeremías message] The code = Bili Indirect) system which generated this result tra nsmitted reference range : <=1.0. The reference r daniel was not used to int erpret this result as normal/abnormal . [facility] [employer] [id number] 09:18:00 Test Item Value Reference Range Interpretation Comments Globulin (test code = Globulin) 2.8 2.7-4.2 [facility] [id number] 09:18:00 Test Item Value Reference Range Interpretation Comments A/G Ratio (test code = A/G Ratio) 1.1 1 0.7-1.6 [facility] [id number] 09:18:00 Test Item Value Reference Range Interpretation Comments Magnesium Lvl (test code = Magnesium 1.8 1.8-2.4 Lvl) [facility] [id number] 09:18:00 Test Item Value Reference Range Interpretation Comments Phosphorus (test code = Phosphorus) 3.2 2.5-4.5 [facility] CenterHeyhejvDDQDWMHEKM2687-99-80 09:18:00 Test Item Value Reference Range Interpretation Comments WBC (test code = WBC) 3.9 3.7-10.4 [place] 235960-11-23 09:18:00 Test Item Value Reference Range Interpretation Comments RBC (test code = RBC) 3.47 4.20-5.40 [facility] CenterOlpjhutROXSNIRBSH5233-28-86 09:18:00 Test Item Value Reference Range Interpretation Comments Hgb (test code = Hgb) 11.0 12.0-16.0 [place] 235960-11-23 09:18:00 Test Item Value Reference Range Interpretation Comments Hct (test code = Hct) 32.2 36.0-48.0 [facility] CenterAlhwexvNLLSHVKBGX3934-60-71 09:18:00 Test Item Value Reference Range Interpretation Comments MCV (test code = MCV) 92.6 80.0-98.0 [facility] CenterLwkvlpdUFVNVWZEDP5487-75-94 09:18:00 Test Item Value Reference Range Interpretation Comments MCH (test code = MCH) 31.7 pg 27.0-31.0 [facility] CenterYyrtyxvEYUBMNLRPZ5524-39-92 09:18:00 Test Item Value Reference Range Interpretation Comments MCHC (test code = MCHC) 34.2 32.0-36.0 [facility] CenterKofutybYFKNTEFFOH9570-28-21 09:18:00 Test Item Value Reference Range Interpretation Comments RDW (test code = RDW) 12.6 11.5-14.5 [facility] CenterTjvkwjePOLMEHCURL7750-97-77 09:18:00 Test Item Value Reference Range Interpretation Comments Platelet (test code = Platelet) 160 133-450 [facility] CenterZzotiszBVROXRTUZR6264-57-37 09:18:00 Test Item Value Reference Range Interpretation Comments MPV (test code = MPV) 9.7 7.4-10.4 [facility] CenterAwnuwwpSLLJQDAOHR9850-87-47 09:18:00 Test Item Value Reference Range Interpretation Comments PT (test code = PT) 15.1 s 12.0-14.7 [facility] CenterCrlagilOVVHROFGBH9830-77-87 09:18:00 Test Item Value Reference Range Interpretation Comments INR (test code = INR) 1.18 1 0.85-1.17 [place] 235960-11-23 09:18:00 Test Item Value Reference Range Interpretation Comments Segs (test code = Segs) 53.6 45.0-75.0 [place] 235960-11-23 09:18:00 Test Item Value Reference Range Interpretation Comments Lymphocytes (test code = Lymphocytes) 34.7 20.0-40.0 [place] 235960-11-23 09:18:00 Test Item Value Reference Range Interpretation Comments Monocytes (test code = Monocytes) 9.0 2.0-12.0 [place] [address]-11-23 09:18:00 Test Item Value Reference Range Interpretation Comments Eosinophils (test code = 1.9 See_Comment [A utomated message] The Eosinophils) system which ge nerated this result tra nsmitted reference range : <=4.0. The reference r daniel was not used to int erpret this result as normal/abnormal . [place] 235960-11-23 09:18:00 Test Item Value Reference Range Interpretation Comments Basophils (test code = 0.8 See_Comment [Aut omated message] The Basophils) system which ge nerated this result tra nsmitted reference range : <=1.0. The reference r daniel was not used to int erpret this result as normal/abnormal . [place] [address]-11-23 09:18:00 Test Item Value Reference Range Interpretation Comments Neutrophils # (test code = Neutrophils 2.1 1.5-8.1 #) [place] [address]-11-23 09:18:00 Test Item Value Reference Range Interpretation Comments Lymphocytes # (test code = Lymphocytes 1.3 1.0-5.5 #) [place] [address]-11-23 09:18:00 Test Item Value Reference Range Interpretation Comments Monocytes # (test code 0.3 See_Comment [Aut omated message] The = Monocytes #) system which generated this result tra nsmitted reference range : <=0.8. The reference r daniel was not used to int erpret this result as normal/abnormal . [place] [address]-11-23 09:18:00 Test Item Value Reference Range Interpretation Comments Eosinophils # (test code 0.1 See_Comment [A utomated message] The = Eosinophils #) system whic h generated this result tra nsmitted reference range : <=0.5. The reference r daniel was not used to int erpret this result as normal/abnormal . [facility] [id number] 09:18:00 Test Item Value Reference Range Interpretation Comments Ca Ion WB (test code = Ca Ion WB) 1.11 1.05-1.25 [facility] CenterATHYROID [id number] 09:18:00 Test Item Value Reference Range Interpretation Comments Ca Norm WB (test code = Ca Norm WB) 1.08 1.05-1.25 [facility]2020-11-23 09:18:00 Test Item Value Reference Range Interpretation Comments Glucose Lvl (test code = Glucose Lvl) 74 70-99 [facility]2020-11-23 09:18:00 Test Item Value Reference Range Interpretation Comments BUN (test code = BUN) 5 7-22 [facility]2020-11-23 09:18:00 Test Item Value Reference Range Interpretation Comments Creatinine Lvl (test code = Creatinine 0.44 0.50-1.40 Lvl) [facility]2020-11-23 09:18:00 Test Item Value Reference Range Interpretation Comments Sodium Lvl (test code = Sodium Lvl) 138 135-145 [facility]2020-11-23 09:18:00 Test Item Value Reference Range Interpretation Comments Potassium Lvl (test code = Potassium 3.5 3.5-5.1 Lvl) [facility]2020-11-23 09:18:00 Test Item Value Reference Range Interpretation Comments Chloride Lvl (test code = Chloride Lvl) 108 95-109 [place] 447990-11-23 09:18:00 Test Item Value Reference Range Interpretation Comments CO2 (test code = CO2) 23 24-32 [facility]2020-11-23 09:18:00 Test Item Value Reference Range Interpretation Comments Calcium Lvl (test code = Calcium Lvl) 8.3 8.5-10.5 [facility]2020-11-23 09:18:00 Test Item Value Reference Range Interpretation Comments AGAP (test code = AGAP) 10.5 10.0-20.0 [address]11-23 09:18:00 Test Item Value Reference Range Interpretation Comments eGFR (test code = eGFR) 134 [address]11-23 09:18:00 Test Item Value Reference Range Interpretation Comments Calcium Lvl (test code = Calcium Lvl) 8.3 8.5-10.5 [address]11-23 09:18:00 Test Item Value Reference Range Interpretation Comments Total Protein (test code = Total 5.9 6.4-8.4 Protein) [place] [address]-23 09:18:00 Test Item Value Reference Range Interpretation Comments Albumin Lvl (test code = Albumin Lvl) 3.1 3.5-5.0 [address]11-23 09:18:00 Test Item Value Reference Range Interpretation Comments ALT (test code = ALT) 178 See_Comment [Auto mated message] The system which ge nerated this result transmit jeremías reference range : <=65. The reference range was not used to interpr et this result as vernell l/abnormal. [place] [address]-23 09:18:00 Test Item Value Reference Range Interpretation Comments AST (test code = AST) 92 See_Comment [Auto mated message] The system which ge nerated this result transmit jeremías reference range : <=37. The reference range was not used to interpr et this result as vernell l/abnormal. [address]11-23 09:18:00 Test Item Value Reference Range Interpretation Comments Alk Phos (test code = Alk Phos) 128 39-136 [address]11-23 09:18:00 Test Item Value Reference Range Interpretation Comments Bili Total (test code = Bili Total) 0.9 0.2-1.3 [address]23 09:18:00 Test Item Value Reference Range Interpretation Comments Bili Direct (test code 0.2 See_Comment [Aut omated message] The = Bili Direct) system which generated this result tra nsmitted reference range : <=0.3. The reference r daniel was not used to int erpret this result as vernell l/abnormal. [place] [address]-23 09:18:00 Test Item Value Reference Range Interpretation Comments Bili Indirect (test 0.7 See_Comment [Automa jeremías message] The code = Bili Indirect) system which generated this result tra nsmitted reference range : <=1.0. The reference r daniel was not used to int erpret this result as normal/abnormal . [facility]2020-11-23 09:18:00 Test Item Value Reference Range Interpretation Comments Globulin (test code = Globulin) 2.8 2.7-4.2 [place] 447990-11-23 09:18:00 Test Item Value Reference Range Interpretation Comments A/G Ratio (test code = A/G Ratio) 1.1 1 0.7-1.6 [place] [address]-11-23 09:18:00 Test Item Value Reference Range Interpretation Comments Magnesium Lvl (test code = Magnesium 1.8 1.8-2.4 Lvl) [place] 447990-11-23 09:18:00 Test Item Value Reference Range Interpretation Comments Phosphorus (test code = Phosphorus) 3.2 2.5-4.5 [place] [address]-11-23 09:18:00 Test Item Value Reference Range Interpretation Comments WBC (test code = WBC) 3.9 3.7-10.4 [place] [address]-11-23 09:18:00 Test Item Value Reference Range Interpretation Comments RBC (test code = RBC) 3.47 4.20-5.40 [place] [address]-11-23 09:18:00 Test Item Value Reference Range Interpretation Comments Hgb (test code = Hgb) 11.0 12.0-16.0 [place] [address]-11-23 09:18:00 Test Item Value Reference Range Interpretation Comments Hct (test code = Hct) 32.2 36.0-48.0 [place] [address]-11-23 09:18:00 Test Item Value Reference Range Interpretation Comments MCV (test code = MCV) 92.6 80.0-98.0 [place] [address]-11-23 09:18:00 Test Item Value Reference Range Interpretation Comments MCH (test code = MCH) 31.7 pg 27.0-31.0 [place] [address]-11-23 09:18:00 Test Item Value Reference Range Interpretation Comments MCHC (test code = MCHC) 34.2 32.0-36.0 [facility]ZmvtdtrQNJONFFDKJ9523-44-38 09:18:00 Test Item Value Reference Range Interpretation Comments RDW (test code = RDW) 12.6 11.5-14.5 [facility] CenterJydgwqbFBHBYJRACO0131-52-92 09:18:00 Test Item Value Reference Range Interpretation Comments Platelet (test code = Platelet) 160 133-450 [facility] CenterQhabduuDHSFHHDSDT2843-72-56 09:18:00 Test Item Value Reference Range Interpretation Comments MPV (test code = MPV) 9.7 7.4-10.4 [place] [address]960-11-23 09:18:00 Test Item Value Reference Range Interpretation Comments PT (test code = PT) 15.1 s 12.0-14.7 [place] 235960-11-23 09:18:00 Test Item Value Reference Range Interpretation Comments INR (test code = INR) 1.18 1 0.85-1.17 [facility] CenterSklsoobGEKWDCRPPW0691-00-21 09:18:00 Test Item Value Reference Range Interpretation Comments Segs (test code = Segs) 53.6 45.0-75.0 [facility] CenterTvphmxhEENHTHOBFJ8765-62-03 09:18:00 Test Item Value Reference Range Interpretation Comments Lymphocytes (test code = Lymphocytes) 34.7 20.0-40.0 [facility] CenterGhteyklNOGJVUOQZG9307-18-99 09:18:00 Test Item Value Reference Range Interpretation Comments Monocytes (test code = Monocytes) 9.0 2.0-12.0 [facility] CenterEwsylcwBFRBBEQQIL2266-10-57 09:18:00 Test Item Value Reference Range Interpretation Comments Eosinophils (test code = 1.9 See_Comment [A utomated message] The Eosinophils) system which ge nerated this result tra nsmitted reference range : <=4.0. The reference r daniel was not used to int erpret this result as normal/abnormal . [facility] CenterAlrfepbWETOEUERJO8260-79-90 09:18:00 Test Item Value Reference Range Interpretation Comments Basophils (test code = 0.8 See_Comment [Aut omated message] The Basophils) system which ge nerated this result tra nsmitted reference range : <=1.0. The reference r daniel was not used to int erpret this result as normal/abnormal . [place] [address]-11-23 09:18:00 Test Item Value Reference Range Interpretation Comments Neutrophils # (test code = Neutrophils 2.1 1.5-8.1 #) [place] 235960-11-23 09:18:00 Test Item Value Reference Range Interpretation Comments Lymphocytes # (test code = Lymphocytes 1.3 1.0-5.5 #) [place] 235960-11-23 09:18:00 Test Item Value Reference Range Interpretation Comments Monocytes # (test code 0.3 See_Comment [Aut omated message] The = Monocytes #) system which generated this result tra nsmitted reference range : <=0.8. The reference r daniel was not used to int erpret this result as normal/abnormal . [place] [address]-11-23 09:18:00 Test Item Value Reference Range Interpretation Comments Eosinophils # (test code 0.1 See_Comment [A utomated message] The = Eosinophils #) system whic h generated this result tra nsmitted reference range : <=0.5. The reference r daniel was not used to int erpret this result as normal/abnormal . [place] 024340-11-23 09:18:00 Test Item Value Reference Range Interpretation Comments Ca Ion WB (test code = Ca Ion WB) 1.11 1.05-1.25 [place] 024340-11-23 09:18:00 Test Item Value Reference Range Interpretation Comments Ca Norm WB (test code = Ca Norm WB) 1.08 1.05-1.25 [place] [address]990-11-23 09:18:00 Test Item Value Reference Range Interpretation Comments Glucose Lvl (test code = Glucose Lvl) 74 70-99 [place] 447990-11-23 09:18:00 Test Item Value Reference Range Interpretation Comments BUN (test code = BUN) 5 7-22 [place] 447990-11-23 09:18:00 Test Item Value Reference Range Interpretation Comments Creatinine Lvl (test code = Creatinine 0.44 0.50-1.40 Lvl) [place] 447990-11-23 09:18:00 Test Item Value Reference Range Interpretation Comments Sodium Lvl (test code = Sodium Lvl) 138 135-145 [place] 447990-11-23 09:18:00 Test Item Value Reference Range Interpretation Comments Potassium Lvl (test code = Potassium 3.5 3.5-5.1 Lvl) [address]11-23 09:18:00 Test Item Value Reference Range Interpretation Comments Chloride Lvl (test code = Chloride Lvl) 108 95-109 [place] [address]-11-23 09:18:00 Test Item Value Reference Range Interpretation Comments CO2 (test code = CO2) 23 24-32 [place] [address]-11-23 09:18:00 Test Item Value Reference Range Interpretation Comments Calcium Lvl (test code = Calcium Lvl) 8.3 8.5-10.5 [place] [address]-11-23 09:18:00 Test Item Value Reference Range Interpretation Comments AGAP (test code = AGAP) 10.5 10.0-20.0 [address]11-23 09:18:00 Test Item Value Reference Range Interpretation Comments eGFR (test code = eGFR) 134 [place] [address]-11-23 09:18:00 Test Item Value Reference Range Interpretation Comments Calcium Lvl (test code = Calcium Lvl) 8.3 8.5-10.5 [place] [address]-11-23 09:18:00 Test Item Value Reference Range Interpretation Comments Total Protein (test code = Total 5.9 6.4-8.4 Protein) [address]11-23 09:18:00 Test Item Value Reference Range Interpretation Comments Albumin Lvl (test code = Albumin Lvl) 3.1 3.5-5.0 [place] [address]-11-23 09:18:00 Test Item Value Reference Range Interpretation Comments ALT (test code = ALT) 178 See_Comment [Auto mated message] The system which ge nerated this result transmit jeremías reference range : <=65. The reference range was not used to interpr et this result as vernell l/abnormal. [address]11-23 09:18:00 Test Item Value Reference Range Interpretation Comments AST (test code = AST) 92 See_Comment [Auto mated message] The system which ge nerated this result transmit jeremías reference range : <=37. The reference range was not used to interpr et this result as vernell l/abnormal. [place] [address]-11-23 09:18:00 Test Item Value Reference Range Interpretation Comments Alk Phos (test code = Alk Phos) 128 39-136 [place] [address]-11-23 09:18:00 Test Item Value Reference Range Interpretation Comments Bili Total (test code = Bili Total) 0.9 0.2-1.3 [place] [address]-11-23 09:18:00 Test Item Value Reference Range Interpretation Comments Bili Direct (test code 0.2 See_Comment [Aut omated message] The = Bili Direct) system which generated this result tra nsmitted reference range : <=0.3. The reference r daniel was not used to int erpret this result as vernell l/abnormal. [address]11-23 09:18:00 Test Item Value Reference Range Interpretation Comments Bili Indirect (test 0.7 See_Comment [Automa jeremías message] The code = Bili Indirect) system which generated this result tra nsmitted reference range : <=1.0. The reference r daniel was not used to int erpret this result as normal/abnormal . [address]11-23 09:18:00 Test Item Value Reference Range Interpretation Comments Globulin (test code = Globulin) 2.8 2.7-4.2 [address]11-23 09:18:00 Test Item Value Reference Range Interpretation Comments A/G Ratio (test code = A/G Ratio) 1.1 1 0.7-1.6 [place] [address]-11-23 09:18:00 Test Item Value Reference Range Interpretation Comments Magnesium Lvl (test code = Magnesium 1.8 1.8-2.4 Lvl) [address]11-23 09:18:00 Test Item Value Reference Range Interpretation Comments Phosphorus (test code = Phosphorus) 3.2 2.5-4.[address]11-23 09:18:00 Test Item Value Reference Range Interpretation Comments WBC (test code = WBC) 3.9 3.7-10.[address]11-23 09:18:00 Test Item Value Reference Range Interpretation Comments RBC (test code = RBC) 3.47 4.20-5.40 [place] 235960-11-23 09:18:00 Test Item Value Reference Range Interpretation Comments Hgb (test code = Hgb) 11.0 12.0-16.0 [facility] CenterIbqdwpaLYQCYINSEV1441-76-03 09:18:00 Test Item Value Reference Range Interpretation Comments Hct (test code = Hct) 32.2 36.0-48.0 [facility] CenterRnhyctrISECVPEYMW6503-58-13 09:18:00 Test Item Value Reference Range Interpretation Comments MCV (test code = MCV) 92.6 80.0-98.0 [place] [address]960-11-23 09:18:00 Test Item Value Reference Range Interpretation Comments MCH (test code = MCH) 31.7 pg 27.0-31.0 [facility] CenterTaofpmfGCOOQYTAOP9936-97-72 09:18:00 Test Item Value Reference Range Interpretation Comments MCHC (test code = MCHC) 34.2 32.0-36.0 [facility] CenterOvqbjueOFVUPHUQIF5191-77-51 09:18:00 Test Item Value Reference Range Interpretation Comments RDW (test code = RDW) 12.6 11.5-14.5 [facility] CenterDvuvpkjQXKFAAFGVR8975-64-44 09:18:00 Test Item Value Reference Range Interpretation Comments Platelet (test code = Platelet) 160 133-450 [facility] CenterBimkxadWRNLZDPRHG1831-03-02 09:18:00 Test Item Value Reference Range Interpretation Comments MPV (test code = MPV) 9.7 7.4-10.4 [facility] CenterEjdjbrqBBFWXMLMGG9253-30-05 09:18:00 Test Item Value Reference Range Interpretation Comments PT (test code = PT) 15.1 s 12.0-14.7 [facility] CenterIvpzuiqGHRHRXTNYF6678-95-40 09:18:00 Test Item Value Reference Range Interpretation Comments INR (test code = INR) 1.18 1 0.85-1.17 [facility] CenterSvvmbveQGGEJSTGGC6371-99-45 09:18:00 Test Item Value Reference Range Interpretation Comments Segs (test code = Segs) 53.6 45.0-75.0 [facility] CenterQckxjrwHUBKTFLOQV4443-49-77 09:18:00 Test Item Value Reference Range Interpretation Comments Lymphocytes (test code = Lymphocytes) 34.7 20.0-40.0 [place] 235960-11-23 09:18:00 Test Item Value Reference Range Interpretation Comments Monocytes (test code = Monocytes) 9.0 2.0-12.0 [place] [address]960-11-23 09:18:00 Test Item Value Reference Range Interpretation Comments Eosinophils (test code = 1.9 See_Comment [A utomated message] The Eosinophils) system which ge nerated this result tra nsmitted reference range : <=4.0. The reference r daniel was not used to int erpret this result as normal/abnormal . [place] [address]-11-23 09:18:00 Test Item Value Reference Range Interpretation Comments Basophils (test code = 0.8 See_Comment [Aut omated message] The Basophils) system which ge nerated this result tra nsmitted reference range : <=1.0. The reference r daniel was not used to int erpret this result as normal/abnormal . [place] 235960-11-23 09:18:00 Test Item Value Reference Range Interpretation Comments Neutrophils # (test code = Neutrophils 2.1 1.5-8.1 #) [place] [address]-11-23 09:18:00 Test Item Value Reference Range Interpretation Comments Lymphocytes # (test code = Lymphocytes 1.3 1.0-5.5 #) [place] 235960-11-23 09:18:00 Test Item Value Reference Range Interpretation Comments Monocytes # (test code 0.3 See_Comment [Aut omated message] The = Monocytes #) system which generated this result tra nsmitted reference range : <=0.8. The reference r daniel was not used to int erpret this result as normal/abnormal . [place] [address]-11-23 09:18:00 Test Item Value Reference Range Interpretation Comments Eosinophils # (test code 0.1 See_Comment [A utomated message] The = Eosinophils #) system whic h generated this result tra nsmitted reference range : <=0.5. The reference r daniel was not used to int erpret this result as normal/abnormal . [facility]ATHYFORMERLY [facility]ITALLPAKOQR9588-60-58 09:18:00 Test Item Value Reference Range Interpretation Comments Ca Ion WB (test code = Ca Ion WB) 1.11 1.05-1.25 [place] 024340-11-23 09:18:00 Test Item Value Reference Range Interpretation Comments Ca Norm WB (test code = Ca Norm WB) 1.08 1.05-1.[address] [facility] [address] [facility]PAR[facility] MQWGPYG0888-67-42 09:18:00 Test Item Value Reference Range Interpretation Comments Ca Norm WB (test code = Ca Norm WB) 1.08 1.05-1.25 [place] 447990-11-23 09:18:00 Test Item Value Reference Range Interpretation Comments Glucose Lvl (test code = Glucose Lvl) 74 70-99 [place] [address]-11-23 09:18:00 Test Item Value Reference Range Interpretation Comments BUN (test code = BUN) 5 7-22 [place] 447990-11-23 09:18:00 Test Item Value Reference Range Interpretation Comments Creatinine Lvl (test code = Creatinine 0.44 0.50-1.40 Lvl) [place] 447990-11-23 09:18:00 Test Item Value Reference Range Interpretation Comments Sodium Lvl (test code = Sodium Lvl) 138 135-145 [place] 447990-11-23 09:18:00 Test Item Value Reference Range Interpretation Comments Potassium Lvl (test code = Potassium 3.5 3.5-5.1 Lvl) [place] 447990-11-23 09:18:00 Test Item Value Reference Range Interpretation Comments Chloride Lvl (test code = Chloride Lvl) 108 95-109 [place] 447990-11-23 09:18:00 Test Item Value Reference Range Interpretation Comments CO2 (test code = CO2) 23 24-32 [place] 447990-11-23 09:18:00 Test Item Value Reference Range Interpretation Comments Calcium Lvl (test code = Calcium Lvl) 8.3 8.5-10.5 [place] 447990-11-23 09:18:00 Test Item Value Reference Range Interpretation Comments AGAP (test code = AGAP) 10.5 10.0-20.0 [place] 447990-11-23 09:18:00 Test Item Value Reference Range Interpretation Comments eGFR (test code = eGFR) 134 [place] 447990-11-23 09:18:00 Test Item Value Reference Range Interpretation Comments Calcium Lvl (test code = Calcium Lvl) 8.3 8.5-10.5 [place] [address]-11-23 09:18:00 Test Item Value Reference Range Interpretation Comments Total Protein (test code = Total 5.9 6.4-8.4 Protein) [place] 447990-11-23 09:18:00 Test Item Value Reference Range Interpretation Comments Albumin Lvl (test code = Albumin Lvl) 3.1 3.5-5.0 [place] [address]-11-23 09:18:00 Test Item Value Reference Range Interpretation Comments ALT (test code = ALT) 178 <=65 [address]11-23 09:18:00 Test Item Value Reference Range Interpretation Comments AST (test code = AST) 92 <=37 [address]11-23 09:18:00 Test Item Value Reference Range Interpretation Comments Alk Phos (test code = Alk Phos) 128 39-136 [place] [address]-11-23 09:18:00 Test Item Value Reference Range Interpretation Comments Bili Total (test code = Bili Total) 0.9 0.2-1.3 [address]11-23 09:18:00 Test Item Value Reference Range Interpretation Comments Bili Direct (test code = Bili Direct) 0.2 <=0.3 [place] [address]-11-23 09:18:00 Test Item Value Reference Range Interpretation Comments Bili Indirect (test code = Bili 0.7 <=1.0 Indirect) [address]11-23 09:18:00 Test Item Value Reference Range Interpretation Comments Globulin (test code = Globulin) 2.8 2.7-4.2 [address]11-23 09:18:00 Test Item Value Reference Range Interpretation Comments A/G Ratio (test code = A/G Ratio) 1.1 1 0.7-1.6 [place] [address]-11-23 09:18:00 Test Item Value Reference Range Interpretation Comments Magnesium Lvl (test code = Magnesium 1.8 1.8-2.4 Lvl) [address]11-23 09:18:00 Test Item Value Reference Range Interpretation Comments Phosphorus (test code = Phosphorus) 3.2 2.5-4.5 [facility] CenterNvhpgnsWWQFXXPWAW4010-59-99 09:18:00 Test Item Value Reference Range Interpretation Comments WBC (test code = WBC) 3.9 3.7-10.4 [facility] CenterEmmbonqYDYFZJIBRU7863-37-24 09:18:00 Test Item Value Reference Range Interpretation Comments RBC (test code = RBC) 3.47 4.20-5.40 [facility] CenterQsidalrWSLWXRKRIS0628-43-89 09:18:00 Test Item Value Reference Range Interpretation Comments Hgb (test code = Hgb) 11.0 12.0-16.0 [facility] CenterIgxdwxtLHVIGECUHB1646-58-46 09:18:00 Test Item Value Reference Range Interpretation Comments Hct (test code = Hct) 32.2 36.0-48.0 [facility] CenterDgipsquSGVRANBEIG4683-27-20 09:18:00 Test Item Value Reference Range Interpretation Comments MCV (test code = MCV) 92.6 80.0-98.0 [facility] CenterBvrmzqjAGTLFOGXIM7594-24-68 09:18:00 Test Item Value Reference Range Interpretation Comments MCH (test code = MCH) 31.7 pg 27.0-31.0 [facility] CenterEcobnbzUAQTLHLYWU9650-15-92 09:18:00 Test Item Value Reference Range Interpretation Comments MCHC (test code = MCHC) 34.2 32.0-36.0 [facility] CenterUbbzbjxOKNUVITCJU3159-60-64 09:18:00 Test Item Value Reference Range Interpretation Comments RDW (test code = RDW) 12.6 11.5-14.5 [facility] CenterSkpatybTLHGSMTLIH8130-22-27 09:18:00 Test Item Value Reference Range Interpretation Comments Platelet (test code = Platelet) 160 133-450 [facility] CenterLwuytuaQARJHOEFEL6701-19-60 09:18:00 Test Item Value Reference Range Interpretation Comments MPV (test code = MPV) 9.7 7.4-10.4 [facility] CenterAextyivVKPWKMHIVT7925-63-06 09:18:00 Test Item Value Reference Range Interpretation Comments PT (test code = PT) 15.1 s 12.0-14.7 [facility] CenterPxwdbcsQYFVTWDUWF8587-91-99 09:18:00 Test Item Value Reference Range Interpretation Comments INR (test code = INR) 1.18 1 0.85-1.17 [facility] CenterJpfgioxZYEYYBOZYG2776-13-01 09:18:00 Test Item Value Reference Range Interpretation Comments Segs (test code = Segs) 53.6 45.0-75.0 [facility] CenterJgevczjSGGGXMDNET8051-90-64 09:18:00 Test Item Value Reference Range Interpretation Comments Lymphocytes (test code = Lymphocytes) 34.7 20.0-40.0 [facility] CenterDbtufakOIDKYIUVMD7073-46-96 09:18:00 Test Item Value Reference Range Interpretation Comments Monocytes (test code = Monocytes) 9.0 2.0-12.0 [place] [address]-11-23 09:18:00 Test Item Value Reference Range Interpretation Comments Eosinophils (test code = Eosinophils) 1.9 <=4.0 [facility] CenterJuguzioPKNKUXWVOV0916-13-95 09:18:00 Test Item Value Reference Range Interpretation Comments Basophils (test code = Basophils) 0.8 <=1.0 [facility] CenterKoetjxySKGDAQJVJM1494-20-26 09:18:00 Test Item Value Reference Range Interpretation Comments Neutrophils # (test code = Neutrophils 2.1 1.5-8.1 #) [facility] CenterTljicdmTIYTVTDVOG7432-34-72 09:18:00 Test Item Value Reference Range Interpretation Comments Lymphocytes # (test code = Lymphocytes 1.3 1.0-5.5 #) [facility] CenterJxdjxyfYITCAZEZPX6379-49-86 09:18:00 Test Item Value Reference Range Interpretation Comments Monocytes # (test code = Monocytes #) 0.3 <=0.8 [facility] CenterHjophxgTGPQVDIUWO6496-11-78 09:18:00 Test Item Value Reference Range Interpretation Comments Eosinophils # (test code = Eosinophils 0.1 <=0.5 #) [facility] HospitalPARATHYROID RKFARTM0545-26-75 09:18:00 Test Item Value Reference Range Interpretation Comments Ca Ion WB (test code = Ca Ion WB) 1.11 1.05-1.25 [facility]2020-11-23 09:18:00 Test Item Value Reference Range Interpretation Comments Glucose Lvl (test code = Glucose Lvl) 74 70-99 [facility]2020-11-23 09:18:00 Test Item Value Reference Range Interpretation Comments BUN (test code = BUN) 5 7-22 [facility]2020-11-23 09:18:00 Test Item Value Reference Range Interpretation Comments Creatinine Lvl (test code = Creatinine 0.44 0.50-1.40 Lvl) [place] [address]990-11-23 09:18:00 Test Item Value Reference Range Interpretation Comments Sodium Lvl (test code = Sodium Lvl) 138 135-145 [place] 447990-11-23 09:18:00 Test Item Value Reference Range Interpretation Comments Potassium Lvl (test code = Potassium 3.5 3.5-5.1 Lvl) [place] 447990-11-23 09:18:00 Test Item Value Reference Range Interpretation Comments Chloride Lvl (test code = Chloride Lvl) 108 95-109 [place] 447990-11-23 09:18:00 Test Item Value Reference Range Interpretation Comments CO2 (test code = CO2) 23 24-32 [place] [address]-11-23 09:18:00 Test Item Value Reference Range Interpretation Comments Calcium Lvl (test code = Calcium Lvl) 8.3 8.5-10.5 [place] 447990-11-23 09:18:00 Test Item Value Reference Range Interpretation Comments AGAP (test code = AGAP) 10.5 10.0-20.0 [place] [address]-11-23 09:18:00 Test Item Value Reference Range Interpretation Comments eGFR (test code = eGFR) 134 [place] 447990-11-23 09:18:00 Test Item Value Reference Range Interpretation Comments Calcium Lvl (test code = Calcium Lvl) 8.3 8.5-10.5 [place] 447990-11-23 09:18:00 Test Item Value Reference Range Interpretation Comments Total Protein (test code = Total 5.9 6.4-8.4 Protein) [place] [address]-11-23 09:18:00 Test Item Value Reference Range Interpretation Comments Albumin Lvl (test code = Albumin Lvl) 3.1 3.5-5.0 [place] 447990-11-23 09:18:00 Test Item Value Reference Range Interpretation Comments ALT (test code = ALT) 178 See_Comment [Auto mated message] The system which ge nerated this result transmit jeremías reference range : <=65. The reference range was not used to interpr et this result as vernell l/abnormal. [place] 447990-11-23 09:18:00 Test Item Value Reference Range Interpretation Comments AST (test code = AST) 92 See_Comment [Auto mated message] The system which ge nerated this result transmit jeremías reference range : <=37. The reference range was not used to interpr et this result as vernell l/abnormal. [place] [address]-11-23 09:18:00 Test Item Value Reference Range Interpretation Comments Alk Phos (test code = Alk Phos) 128 39-136 [place] [address]-11-23 09:18:00 Test Item Value Reference Range Interpretation Comments Bili Total (test code = Bili Total) 0.9 0.2-1.3 [address]11-23 09:18:00 Test Item Value Reference Range Interpretation Comments Bili Direct (test code 0.2 See_Comment [Aut omated message] The = Bili Direct) system which generated this result tra nsmitted reference range : <=0.3. The reference r daniel was not used to int erpret this result as vernell l/abnormal. [place] [address]-11-23 09:18:00 Test Item Value Reference Range Interpretation Comments Bili Indirect (test 0.7 See_Comment [Automa jeremías message] The code = Bili Indirect) system which generated this result tra nsmitted reference range : <=1.0. The reference r daniel was not used to int erpret this result as normal/abnormal . [place] 447990-11-23 09:18:00 Test Item Value Reference Range Interpretation Comments Globulin (test code = Globulin) 2.8 2.7-4.2 [address]11-23 09:18:00 Test Item Value Reference Range Interpretation Comments A/G Ratio (test code = A/G Ratio) 1.1 1 0.7-1.6 [address]11-23 09:18:00 Test Item Value Reference Range Interpretation Comments Magnesium Lvl (test code = Magnesium 1.8 1.8-2.4 Lvl) [address]11-23 09:18:00 Test Item Value Reference Range Interpretation Comments Phosphorus (test code = Phosphorus) 3.2 2.5-4.5 [place] 235960-11-23 09:18:00 Test Item Value Reference Range Interpretation Comments WBC (test code = WBC) 3.9 3.7-10.4 [facility]YS[facility]IC[facility]4377[facility] 09:18:00 Test Item Value Reference Range Interpretation Comments RBC (test code = RBC) 3.47 4.20-5.40 [facility]LwxjspeIWCVHDGOLR0445-25-09 09:18:00 Test Item Value Reference Range Interpretation Comments Hgb (test code = Hgb) 11.0 12.0-16.0 [facility] CenterHskeeclGFCQCLCGYX6168-40-07 09:18:00 Test Item Value Reference Range Interpretation Comments Hct (test code = Hct) 32.2 36.0-48.0 [facility] CenterMuunoinGVXHFDOWFF0063-38-66 09:18:00 Test Item Value Reference Range Interpretation Comments MCV (test code = MCV) 92.6 80.0-98.0 [facility] CenterAhugppdBTBNUXZDDH9384-40-04 09:18:00 Test Item Value Reference Range Interpretation Comments MCH (test code = MCH) 31.7 pg 27.0-31.0 [facility] CenterOmbsjrcCGJFNTQPNA8966-73-03 09:18:00 Test Item Value Reference Range Interpretation Comments MCHC (test code = MCHC) 34.2 32.0-36.0 [facility] CenterJbcikjmKGAOVPYMZT3679-47-20 09:18:00 Test Item Value Reference Range Interpretation Comments RDW (test code = RDW) 12.6 11.5-14.5 [facility] CenterAhakinyQKFSJYJQOH2756-51-35 09:18:00 Test Item Value Reference Range Interpretation Comments Platelet (test code = Platelet) 160 133-450 [facility] CenterHrgyxlsNZEOZMWETI5026-77-33 09:18:00 Test Item Value Reference Range Interpretation Comments MPV (test code = MPV) 9.7 7.4-10.4 [facility] CenterFpyixdfXTTELBSZOK9372-53-92 09:18:00 Test Item Value Reference Range Interpretation Comments PT (test code = PT) 15.1 s 12.0-14.7 [facility] CenterCwjyjjeTTOXRSVVSU1583-44-16 09:18:00 Test Item Value Reference Range Interpretation Comments INR (test code = INR) 1.18 1 0.85-1.17 [facility] CenterOflvjfiHWUVXOICDB0800-60-47 09:18:00 Test Item Value Reference Range Interpretation Comments Segs (test code = Segs) 53.6 45.0-75.0 [place] 235960-11-23 09:18:00 Test Item Value Reference Range Interpretation Comments Lymphocytes (test code = Lymphocytes) 34.7 20.0-40.0 [place] 235960-11-23 09:18:00 Test Item Value Reference Range Interpretation Comments Monocytes (test code = Monocytes) 9.0 2.0-12.0 [place] 235960-11-23 09:18:00 Test Item Value Reference Range Interpretation Comments Eosinophils (test code = 1.9 See_Comment [A utomated message] The Eosinophils) system which ge nerated this result tra nsmitted reference range : <=4.0. The reference r daniel was not used to int erpret this result as normal/abnormal . [place] [address]-11-23 09:18:00 Test Item Value Reference Range Interpretation Comments Basophils (test code = 0.8 See_Comment [Aut omated message] The Basophils) system which ge nerated this result tra nsmitted reference range : <=1.0. The reference r daniel was not used to int erpret this result as normal/abnormal . [place] 235960-11-23 09:18:00 Test Item Value Reference Range Interpretation Comments Neutrophils # (test code = Neutrophils 2.1 1.5-8.1 #) [place] [address]-11-23 09:18:00 Test Item Value Reference Range Interpretation Comments Lymphocytes # (test code = Lymphocytes 1.3 1.0-5.5 #) [place] 235960-11-23 09:18:00 Test Item Value Reference Range Interpretation Comments Monocytes # (test code 0.3 See_Comment [Aut omated message] The = Monocytes #) system which generated this result tra nsmitted reference range : <=0.8. The reference r daniel was not used to int erpret this result as normal/abnormal . [place] 235960-11-23 09:18:00 Test Item Value Reference Range Interpretation Comments Eosinophils # (test code 0.1 See_Comment [A utomated message] The = Eosinophils #) system ic h generated this result tra nsmitted reference range : <=0.5. The reference r daniel was not used to int erpret this result as normal/abnormal . [facility] 09:18:00 Test Item Value Reference Range Interpretation Comments Ca Ion WB (test code = Ca Ion WB) 1.11 1.05-1.25 [facility] [id number] 09:18:00 Test Item Value Reference Range Interpretation Comments Ca Norm WB (test code = Ca Norm WB) 1.08 1.05-1.25 [place] 447990-11-23 09:18:00 Test Item Value Reference Range Interpretation Comments Glucose Lvl (test code = Glucose Lvl) 74 70-99 [place] 447990-11-23 09:18:00 Test Item Value Reference Range Interpretation Comments BUN (test code = BUN) 5 7-22 [place] 447990-11-23 09:18:00 Test Item Value Reference Range Interpretation Comments Creatinine Lvl (test code = Creatinine 0.44 0.50-1.40 Lvl) [place] 447990-11-23 09:18:00 Test Item Value Reference Range Interpretation Comments Sodium Lvl (test code = Sodium Lvl) 138 135-145 [place] 447990-11-23 09:18:00 Test Item Value Reference Range Interpretation Comments Potassium Lvl (test code = Potassium 3.5 3.5-5.1 Lvl) [facility]2020-11-23 09:18:00 Test Item Value Reference Range Interpretation Comments Chloride Lvl (test code = Chloride Lvl) 108 95-109 [place] 447990-11-23 09:18:00 Test Item Value Reference Range Interpretation Comments CO2 (test code = CO2) 23 24-32 [place] 447990-11-23 09:18:00 Test Item Value Reference Range Interpretation Comments Calcium Lvl (test code = Calcium Lvl) 8.3 8.5-10.5 [place] 447990-11-23 09:18:00 Test Item Value Reference Range Interpretation Comments AGAP (test code = AGAP) 10.5 10.0-20.0 [place] 447990-11-23 09:18:00 Test Item Value Reference Range Interpretation Comments eGFR (test code = eGFR) 134 [place] 447990-11-23 09:18:00 Test Item Value Reference Range Interpretation Comments Calcium Lvl (test code = Calcium Lvl) 8.3 8.5-10.5 [place] [address]-23 09:18:00 Test Item Value Reference Range Interpretation Comments Total Protein (test code = Total 5.9 6.4-8.4 Protein) [address]23 09:18:00 Test Item Value Reference Range Interpretation Comments Albumin Lvl (test code = Albumin Lvl) 3.1 3.5-5.0 [place] [address]-23 09:18:00 Test Item Value Reference Range Interpretation Comments ALT (test code = ALT) 178 See_Comment [Auto mated message] The system which ge nerated this result transmit jeremías reference range : <=65. The reference range was not used to interpr et this result as vernell l/abnormal. [address]23 09:18:00 Test Item Value Reference Range Interpretation Comments AST (test code = AST) 92 See_Comment [Auto mated message] The system which ge nerated this result transmit jeremías reference range : <=37. The reference range was not used to interpr et this result as vernell l/abnormal. [address]23 09:18:00 Test Item Value Reference Range Interpretation Comments Alk Phos (test code = Alk Phos) 128 39-136 [address]23 09:18:00 Test Item Value Reference Range Interpretation Comments Bili Total (test code = Bili Total) 0.9 0.2-1.3 [address]23 09:18:00 Test Item Value Reference Range Interpretation Comments Bili Direct (test code 0.2 See_Comment [Aut omated message] The = Bili Direct) system which generated this result tra nsmitted reference range : <=0.3. The reference r daniel was not used to int erpret this result as vernell l/abnormal. [place] [address] 09:18:00 Test Item Value Reference Range Interpretation Comments Bili Indirect (test 0.7 See_Comment [Automa jeremías message] The code = Bili Indirect) system which generated this result tra nsmitted reference range : <=1.0. The reference r daniel was not used to int erpret this result as normal/abnormal . [facility]2020-11-23 09:18:00 Test Item Value Reference Range Interpretation Comments Globulin (test code = Globulin) 2.8 2.7-4.2 [place] 447990-11-23 09:18:00 Test Item Value Reference Range Interpretation Comments A/G Ratio (test code = A/G Ratio) 1.1 1 0.7-1.6 [place] 447990-11-23 09:18:00 Test Item Value Reference Range Interpretation Comments Magnesium Lvl (test code = Magnesium 1.8 1.8-2.4 Lvl) [place] 447990-11-23 09:18:00 Test Item Value Reference Range Interpretation Comments Phosphorus (test code = Phosphorus) 3.2 2.5-4.5 [place] [address]-11-23 09:18:00 Test Item Value Reference Range Interpretation Comments WBC (test code = WBC) 3.9 3.7-10.4 [place] 235960-11-23 09:18:00 Test Item Value Reference Range Interpretation Comments RBC (test code = RBC) 3.47 4.20-5.40 [place] [address]-11-23 09:18:00 Test Item Value Reference Range Interpretation Comments Hgb (test code = Hgb) 11.0 12.0-16.0 [place] [address]-11-23 09:18:00 Test Item Value Reference Range Interpretation Comments Hct (test code = Hct) 32.2 36.0-48.0 [place] [address]-11-23 09:18:00 Test Item Value Reference Range Interpretation Comments MCV (test code = MCV) 92.6 80.0-98.0 [place] [address]-11-23 09:18:00 Test Item Value Reference Range Interpretation Comments MCH (test code = MCH) 31.7 pg 27.0-31.0 [place] [address]-11-23 09:18:00 Test Item Value Reference Range Interpretation Comments MCHC (test code = MCHC) 34.2 32.0-36.0 [place] [address]-11-23 09:18:00 Test Item Value Reference Range Interpretation Comments RDW (test code = RDW) 12.6 11.5-14.5 [facility]UxvvoduKNVXQFJAQL1304-92-92 09:18:00 Test Item Value Reference Range Interpretation Comments Platelet (test code = Platelet) 160 133-450 [facility] CenterJozrqpwUKDPTYWUVP2296-44-96 09:18:00 Test Item Value Reference Range Interpretation Comments MPV (test code = MPV) 9.7 7.4-10.4 [facility] CenterFcunhfqJIRTORJGYS9261-50-79 09:18:00 Test Item Value Reference Range Interpretation Comments PT (test code = PT) 15.1 s 12.0-14.7 [place] [address]960-11-23 09:18:00 Test Item Value Reference Range Interpretation Comments INR (test code = INR) 1.18 1 0.85-1.17 [place] 235960-11-23 09:18:00 Test Item Value Reference Range Interpretation Comments Segs (test code = Segs) 53.6 45.0-75.0 [place] 235960-11-23 09:18:00 Test Item Value Reference Range Interpretation Comments Lymphocytes (test code = Lymphocytes) 34.7 20.0-40.0 [place] 235960-11-23 09:18:00 Test Item Value Reference Range Interpretation Comments Monocytes (test code = Monocytes) 9.0 2.0-12.0 [facility] CenterHckltmkECGMUBWWYW0722-54-87 09:18:00 Test Item Value Reference Range Interpretation Comments Eosinophils (test code = 1.9 See_Comment [A utomated message] The Eosinophils) system which ge nerated this result tra nsmitted reference range : <=4.0. The reference r daniel was not used to int erpret this result as normal/abnormal . [place] 235960-11-23 09:18:00 Test Item Value Reference Range Interpretation Comments Basophils (test code = 0.8 See_Comment [Aut omated message] The Basophils) system which ge nerated this result tra nsmitted reference range : <=1.0. The reference r daniel was not used to int erpret this result as normal/abnormal . [facility] CenterFpxydaoHPYDMZGMRC8874-56-93 09:18:00 Test Item Value Reference Range Interpretation Comments Neutrophils # (test code = Neutrophils 2.1 1.5-8.1 #) [place] [address]-11-23 09:18:00 Test Item Value Reference Range Interpretation Comments Lymphocytes # (test code = Lymphocytes 1.3 1.0-5.5 #) [place] [address]-11-23 09:18:00 Test Item Value Reference Range Interpretation Comments Monocytes # (test code 0.3 See_Comment [Aut omated message] The = Monocytes #) system which generated this result tra nsmitted reference range : <=0.8. The reference r daniel was not used to int erpret this result as normal/abnormal . [place] [address]-11-23 09:18:00 Test Item Value Reference Range Interpretation Comments Eosinophils # (test code 0.1 See_Comment [A utomated message] The = Eosinophils #) system whic h generated this result tra nsmitted reference range : <=0.5. The reference r daniel was not used to int erpret this result as normal/abnormal . [place] 024340-11-23 09:18:00 Test Item Value Reference Range Interpretation Comments Ca Ion WB (test code = Ca Ion WB) 1.11 1.05-1.25 [place] [address]-11-23 09:18:00 Test Item Value Reference Range Interpretation Comments Ca Norm WB (test code = Ca Norm WB) 1.08 1.05-1.25 [place] 447990-11-23 09:18:00 Test Item Value Reference Range Interpretation Comments Glucose Lvl (test code = Glucose Lvl) 74 70-99 [place] 447990-11-23 09:18:00 Test Item Value Reference Range Interpretation Comments BUN (test code = BUN) 5 7-22 [place] [address]-11-23 09:18:00 Test Item Value Reference Range Interpretation Comments Creatinine Lvl (test code = Creatinine 0.44 0.50-1.40 Lvl) [place] [address]-11-23 09:18:00 Test Item Value Reference Range Interpretation Comments Sodium Lvl (test code = Sodium Lvl) 138 135-145 [place] [address]-11-23 09:18:00 Test Item Value Reference Range Interpretation Comments Potassium Lvl (test code = Potassium 3.5 3.5-5.1 Lvl) [address]11-23 09:18:00 Test Item Value Reference Range Interpretation Comments Chloride Lvl (test code = Chloride Lvl) 108 95-109 [place] [address]-11-23 09:18:00 Test Item Value Reference Range Interpretation Comments CO2 (test code = CO2) 23 24-32 [place] [address]-11-23 09:18:00 Test Item Value Reference Range Interpretation Comments Calcium Lvl (test code = Calcium Lvl) 8.3 8.5-10.5 [place] [address]-11-23 09:18:00 Test Item Value Reference Range Interpretation Comments AGAP (test code = AGAP) 10.5 10.0-20.0 [place] [address]-11-23 09:18:00 Test Item Value Reference Range Interpretation Comments eGFR (test code = eGFR) 134 [place] [address]-11-23 09:18:00 Test Item Value Reference Range Interpretation Comments Calcium Lvl (test code = Calcium Lvl) 8.3 8.5-10.5 [place] [address]-11-23 09:18:00 Test Item Value Reference Range Interpretation Comments Total Protein (test code = Total 5.9 6.4-8.4 Protein) [place] [address]-11-23 09:18:00 Test Item Value Reference Range Interpretation Comments Albumin Lvl (test code = Albumin Lvl) 3.1 3.5-5.0 [place] [address]-11-23 09:18:00 Test Item Value Reference Range Interpretation Comments ALT (test code = ALT) 178 See_Comment [Auto mated message] The system which ge nerated this result transmit jeremías reference range : <=65. The reference range was not used to interpr et this result as vernell l/abnormal. [place] [address]-11-23 09:18:00 Test Item Value Reference Range Interpretation Comments AST (test code = AST) 92 See_Comment [Auto mated message] The system which ge nerated this result transmit jeremías reference range : <=37. The reference range was not used to interpr et this result as vernell l/abnormal. [place] [address]-11-23 09:18:00 Test Item Value Reference Range Interpretation Comments Alk Phos (test code = Alk Phos) 128 39-136 [place] [address]-11-23 09:18:00 Test Item Value Reference Range Interpretation Comments Bili Total (test code = Bili Total) 0.9 0.2-1.3 [address]11-23 09:18:00 Test Item Value Reference Range Interpretation Comments Bili Direct (test code 0.2 See_Comment [Aut omated message] The = Bili Direct) system which generated this result tra nsmitted reference range : <=0.3. The reference r daniel was not used to int erpret this result as vernell l/abnormal. [address]11-23 09:18:00 Test Item Value Reference Range Interpretation Comments Bili Indirect (test 0.7 See_Comment [Automa jeremías message] The code = Bili Indirect) system which generated this result tra nsmitted reference range : <=1.0. The reference r daniel was not used to int erpret this result as normal/abnormal . [address]11-23 09:18:00 Test Item Value Reference Range Interpretation Comments Globulin (test code = Globulin) 2.8 2.7-4.2 [address]11-23 09:18:00 Test Item Value Reference Range Interpretation Comments A/G Ratio (test code = A/G Ratio) 1.1 1 0.7-1.6 [address]11-23 09:18:00 Test Item Value Reference Range Interpretation Comments Magnesium Lvl (test code = Magnesium 1.8 1.8-2.4 Lvl) [address]11-23 09:18:00 Test Item Value Reference Range Interpretation Comments Phosphorus (test code = Phosphorus) 3.2 2.5-4.5 [address]11-23 09:18:00 Test Item Value Reference Range Interpretation Comments WBC (test code = WBC) 3.9 3.7-10.[address]11-23 09:18:00 Test Item Value Reference Range Interpretation Comments RBC (test code = RBC) 3.47 4.20-5.[address]11-23 09:18:00 Test Item Value Reference Range Interpretation Comments Hgb (test code = Hgb) 11.0 12.0-16.0 [place] 235960-11-23 09:18:00 Test Item Value Reference Range Interpretation Comments Hct (test code = Hct) 32.2 36.0-48.0 [facility]OawqrtvZPAPKVFRJL0913-31-28 09:18:00 Test Item Value Reference Range Interpretation Comments MCV (test code = MCV) 92.6 80.0-98.0 [facility] CenterZngggwcAQRWWPVKMW1851-91-96 09:18:00 Test Item Value Reference Range Interpretation Comments MCH (test code = MCH) 31.7 pg 27.0-31.0 [facility] CenterNnsdlagJEEHXUJUBQ9925-79-00 09:18:00 Test Item Value Reference Range Interpretation Comments MCHC (test code = MCHC) 34.2 32.0-36.0 [facility] CenterDbnvwrjXCXPJUHERD6367-22-48 09:18:00 Test Item Value Reference Range Interpretation Comments RDW (test code = RDW) 12.6 11.5-14.5 [facility] CenterJqqdjvmNTSAYJNXKX9302-61-52 09:18:00 Test Item Value Reference Range Interpretation Comments Platelet (test code = Platelet) 160 133-450 [facility] CenterQbtrjfwAQNSSDDWVH0260-09-69 09:18:00 Test Item Value Reference Range Interpretation Comments MPV (test code = MPV) 9.7 7.4-10.4 [facility] CenterVzkamyePTXCIPITAJ3747-60-14 09:18:00 Test Item Value Reference Range Interpretation Comments PT (test code = PT) 15.1 s 12.0-14.7 [facility] CenterIfqnzphLSDNNARORJ7280-50-89 09:18:00 Test Item Value Reference Range Interpretation Comments INR (test code = INR) 1.18 1 0.85-1.17 [place] 235960-11-23 09:18:00 Test Item Value Reference Range Interpretation Comments Segs (test code = Segs) 53.6 45.0-75.0 [place] [address]-11-23 09:18:00 Test Item Value Reference Range Interpretation Comments Lymphocytes (test code = Lymphocytes) 34.7 20.0-40.0 [place] 235960-11-23 09:18:00 Test Item Value Reference Range Interpretation Comments Monocytes (test code = Monocytes) 9.0 2.0-12.0 [place] 235960-11-23 09:18:00 Test Item Value Reference Range Interpretation Comments Eosinophils (test code = 1.9 See_Comment [A utomated message] The Eosinophils) system which ge nerated this result tra nsmitted reference range : <=4.0. The reference r daniel was not used to int erpret this result as normal/abnormal . [facility] CenterGjojzcvTLUFRPFTQY7560-05-77 09:18:00 Test Item Value Reference Range Interpretation Comments Basophils (test code = 0.8 See_Comment [Aut omated message] The Basophils) system which ge nerated this result tra nsmitted reference range : <=1.0. The reference r daniel was not used to int erpret this result as normal/abnormal . [facility] CenterSxmcaxpURVJCRCMNE1642-07-93 09:18:00 Test Item Value Reference Range Interpretation Comments Neutrophils # (test code = Neutrophils 2.1 1.5-8.1 #) [facility] CenterDzgrcbgFPIJXSGMRU0067-56-80 09:18:00 Test Item Value Reference Range Interpretation Comments Lymphocytes # (test code = Lymphocytes 1.3 1.0-5.5 #) [facility] CenterWpsqnciRKNZBTTNEA0146-20-08 09:18:00 Test Item Value Reference Range Interpretation Comments Monocytes # (test code 0.3 See_Comment [Aut omated message] The = Monocytes #) system which generated this result tra nsmitted reference range : <=0.8. The reference r daniel was not used to int erpret this result as normal/abnormal . [facility] CenterFvkczljMZOKMNWBTF2493-50-75 09:18:00 Test Item Value Reference Range Interpretation Comments Eosinophils # (test code 0.1 See_Comment [A utomated message] The = Eosinophils #) system whic h generated this result tra nsmitted reference range : <=0.5. The reference r daniel was not used to int erpret this result as normal/abnormal . [facility]PARATHY[facility]ID ITXUOIS0693-73-27 09:18:00 Test Item Value Reference Range Interpretation Comments Ca Ion WB (test code = Ca Ion WB) 1.11 1.05-1.25 [facility] THGXFIK3343-57-50 09:18:00 Test Item Value Reference Range Interpretation Comments Ca Norm WB (test code = Ca Norm WB) 1.08 1.05-1.25 [place] 447990-11-23 09:18:00 Test Item Value Reference Range Interpretation Comments Glucose Lvl (test code = Glucose Lvl) 74 70-99 [place] 447990-11-23 09:18:00 Test Item Value Reference Range Interpretation Comments BUN (test code = BUN) 5 7-22 [place] [address]-11-23 09:18:00 Test Item Value Reference Range Interpretation Comments Creatinine Lvl (test code = Creatinine 0.44 0.50-1.40 Lvl) [place] 447990-11-23 09:18:00 Test Item Value Reference Range Interpretation Comments Sodium Lvl (test code = Sodium Lvl) 138 135-145 [place] 447990-11-23 09:18:00 Test Item Value Reference Range Interpretation Comments Potassium Lvl (test code = Potassium 3.5 3.5-5.1 Lvl) [place] 447990-11-23 09:18:00 Test Item Value Reference Range Interpretation Comments Chloride Lvl (test code = Chloride Lvl) 108 95-109 [place] 447990-11-23 09:18:00 Test Item Value Reference Range Interpretation Comments CO2 (test code = CO2) 23 24-32 [place] 447990-11-23 09:18:00 Test Item Value Reference Range Interpretation Comments Calcium Lvl (test code = Calcium Lvl) 8.3 8.5-10.5 [place] 447990-11-23 09:18:00 Test Item Value Reference Range Interpretation Comments AGAP (test code = AGAP) 10.5 10.0-20.0 [place] [id number] 09:18:00 Test Item Value Reference Range Interpretation Comments eGFR (test code = eGFR) 134 [place] 447990-11-23 09:18:00 Test Item Value Reference Range Interpretation Comments Calcium Lvl (test code = Calcium Lvl) 8.3 8.5-10.5 [place] 447990-11-23 09:18:00 Test Item Value Reference Range Interpretation Comments Total Protein (test code = Total 5.9 6.4-8.4 Protein) [place] 447990-11-23 09:18:00 Test Item Value Reference Range Interpretation Comments Albumin Lvl (test code = Albumin Lvl) 3.1 3.5-5.0 [facility] [employer] [id number] 09:18:00 Test Item Value Reference Range Interpretation Comments ALT (test code = ALT) 178 See_Comment [Auto mated message] The system which ge nerated this result transmit jeremías reference range : <=65. The reference range was not used to interpr et this result as vernell l/abnormal. [facility] [employer] [id number] 09:18:00 Test Item Value Reference Range Interpretation Comments AST (test code = AST) 92 See_Comment [Auto mated message] The system which ge nerated this result transmit jeremías reference range : <=37. The reference range was not used to interpr et this result as vernell l/abnormal. [facility] [employer] [id number] 09:18:00 Test Item Value Reference Range Interpretation Comments Alk Phos (test code = Alk Phos) 128 39-136 [facility] [employer] [id number] 09:18:00 Test Item Value Reference Range Interpretation Comments Bili Total (test code = Bili Total) 0.9 0.2-1.3 [facility] [employer] [id number] 09:18:00 Test Item Value Reference Range Interpretation Comments Bili Direct (test code 0.2 See_Comment [Aut omated message] The = Bili Direct) system which generated this result tra nsmitted reference range : <=0.3. The reference r daniel was not used to int erpret this result as vernell l/abnormal. [facility] [employer] [id number] 09:18:00 Test Item Value Reference Range Interpretation Comments Bili Indirect (test 0.7 See_Comment [Automa jeremías message] The code = Bili Indirect) system which generated this result tra nsmitted reference range : <=1.0. The reference r daniel was not used to int erpret this result as normal/abnormal . [facility] [employer] [id number] 09:18:00 Test Item Value Reference Range Interpretation Comments Globulin (test code = Globulin) 2.8 2.7-4.2 [facility] [employer] [id number] 09:18:00 Test Item Value Reference Range Interpretation Comments A/G Ratio (test code = A/G Ratio) 1.1 1 0.7-1.6 [facility]2020-11-23 09:18:00 Test Item Value Reference Range Interpretation Comments Magnesium Lvl (test code = Magnesium 1.8 1.8-2.4 Lvl) [facility]2020-11-23 09:18:00 Test Item Value Reference Range Interpretation Comments Phosphorus (test code = Phosphorus) 3.2 2.5-4.5 [place] 235960-11-23 09:18:00 Test Item Value Reference Range Interpretation Comments WBC (test code = WBC) 3.9 3.7-10.4 [place] [address]-11-23 09:18:00 Test Item Value Reference Range Interpretation Comments RBC (test code = RBC) 3.47 4.20-5.40 [place] 235960-11-23 09:18:00 Test Item Value Reference Range Interpretation Comments Hgb (test code = Hgb) 11.0 12.0-16.0 [place] 235960-11-23 09:18:00 Test Item Value Reference Range Interpretation Comments Hct (test code = Hct) 32.2 36.0-48.0 [place] 235960-11-23 09:18:00 Test Item Value Reference Range Interpretation Comments MCV (test code = MCV) 92.6 80.0-98.0 [place] 235960-11-23 09:18:00 Test Item Value Reference Range Interpretation Comments MCH (test code = MCH) 31.7 pg 27.0-31.0 [place] 235960-11-23 09:18:00 Test Item Value Reference Range Interpretation Comments MCHC (test code = MCHC) 34.2 32.0-36.0 [place] 235960-11-23 09:18:00 Test Item Value Reference Range Interpretation Comments RDW (test code = RDW) 12.6 11.5-14.5 [place] [address]-11-23 09:18:00 Test Item Value Reference Range Interpretation Comments Platelet (test code = Platelet) 160 133-450 [place] 235960-11-23 09:18:00 Test Item Value Reference Range Interpretation Comments MPV (test code = MPV) 9.7 7.4-10.4 [place] 235960-11-23 09:18:00 Test Item Value Reference Range Interpretation Comments PT (test code = PT) 15.1 s 12.0-14.7 [place] 235960-11-23 09:18:00 Test Item Value Reference Range Interpretation Comments INR (test code = INR) 1.18 1 0.85-1.17 [place] 235960-11-23 09:18:00 Test Item Value Reference Range Interpretation Comments Segs (test code = Segs) 53.6 45.0-75.0 [place] 235960-11-23 09:18:00 Test Item Value Reference Range Interpretation Comments Lymphocytes (test code = Lymphocytes) 34.7 20.0-40.0 [place] 235960-11-23 09:18:00 Test Item Value Reference Range Interpretation Comments Monocytes (test code = Monocytes) 9.0 2.0-12.0 [place] 235960-11-23 09:18:00 Test Item Value Reference Range Interpretation Comments Eosinophils (test code = 1.9 See_Comment [A utomated message] The Eosinophils) system which ge nerated this result tra nsmitted reference range : <=4.0. The reference r daniel was not used to int erpret this result as normal/abnormal . [facility]GRMM[facility]15[facility] 09:18:00 Test Item Value Reference Range Interpretation Comments Basophils (test code = 0.8 See_Comment [Aut omated message] The Basophils) system which ge nerated this result tra nsmitted reference range : <=1.0. The reference r daniel was not used to int erpret this result as normal/abnormal . [facility]FrshtpoQDMHWWYWCC5852-99-62 09:18:00 Test Item Value Reference Range Interpretation Comments Neutrophils # (test code = Neutrophils 2.1 1.5-8.1 #) [place] 235960-11-23 09:18:00 Test Item Value Reference Range Interpretation Comments Lymphocytes # (test code = Lymphocytes 1.3 1.0-5.5 #) [place] 235960-11-23 09:18:00 Test Item Value Reference Range Interpretation Comments Monocytes # (test code 0.3 See_Comment [Aut omated message] The = Monocytes #) system which generated this result tra nsmitted reference range : <=0.8. The reference r daniel was not used to int erpret this result as normal/abnormal . [facility]QXBH7857-56-36 09:18:00 Test Item Value Reference Range Interpretation Comments Eosinophils # (test code 0.1 See_Comment [A utomated message] The = Eosinophils #) system whic h generated this result tra nsmitted reference range : <=0.5. The reference r daniel was not used to int erpret this result as normal/abnormal . [id number] 09:18:00 Test Item Value Reference Range Interpretation Comments Ca Ion WB (test code = Ca Ion WB) 1.11 1.05-1.25 [facility] [id number] 09:18:00 Test Item Value Reference Range Interpretation Comments Ca Norm WB (test code = Ca Norm WB) 1.08 1.05-1.25 [place] 447990-11-23 09:18:00 Test Item Value Reference Range Interpretation Comments Glucose Lvl (test code = Glucose Lvl) 74 70-99 [place] 447990-11-23 09:18:00 Test Item Value Reference Range Interpretation Comments BUN (test code = BUN) 5 7-22 [place] 447990-11-23 09:18:00 Test Item Value Reference Range Interpretation Comments Creatinine Lvl (test code = Creatinine 0.44 0.50-1.40 Lvl) [place] 447990-11-23 09:18:00 Test Item Value Reference Range Interpretation Comments Sodium Lvl (test code = Sodium Lvl) 138 135-145 [place] 447990-11-23 09:18:00 Test Item Value Reference Range Interpretation Comments Potassium Lvl (test code = Potassium 3.5 3.5-5.1 Lvl) [place] [address]-11-23 09:18:00 Test Item Value Reference Range Interpretation Comments Chloride Lvl (test code = Chloride Lvl) 108 95-109 [place] 447990-11-23 09:18:00 Test Item Value Reference Range Interpretation Comments CO2 (test code = CO2) 23 24-32 [place] 447990-11-23 09:18:00 Test Item Value Reference Range Interpretation Comments Calcium Lvl (test code = Calcium Lvl) 8.3 8.5-10.5 [place] 447990-11-23 09:18:00 Test Item Value Reference Range Interpretation Comments AGAP (test code = AGAP) 10.5 10.0-20.0 [place] [address]-11-23 09:18:00 Test Item Value Reference Range Interpretation Comments eGFR (test code = eGFR) 134 [place] [address]-11-23 09:18:00 Test Item Value Reference Range Interpretation Comments Calcium Lvl (test code = Calcium Lvl) 8.3 8.5-10.5 [place] [address]-11-23 09:18:00 Test Item Value Reference Range Interpretation Comments Total Protein (test code = Total 5.9 6.4-8.4 Protein) [place] [address]-11-23 09:18:00 Test Item Value Reference Range Interpretation Comments Albumin Lvl (test code = Albumin Lvl) 3.1 3.5-5.0 [place] 447990-11-23 09:18:00 Test Item Value Reference Range Interpretation Comments ALT (test code = ALT) 178 See_Comment [Auto mated message] The system which ge nerated this result transmit jeremías reference range : <=65. The reference range was not used to interpr et this result as vernell l/abnormal. [place] [address]-11-23 09:18:00 Test Item Value Reference Range Interpretation Comments AST (test code = AST) 92 See_Comment [Auto mated message] The system which ge nerated this result transmit jeremías reference range : <=37. The reference range was not used to interpr et this result as vernell l/abnormal. [place] 447990-11-23 09:18:00 Test Item Value Reference Range Interpretation Comments Alk Phos (test code = Alk Phos) 128 39-136 [place] [address]-11-23 09:18:00 Test Item Value Reference Range Interpretation Comments Bili Total (test code = Bili Total) 0.9 0.2-1.3 [place] [address]-11-23 09:18:00 Test Item Value Reference Range Interpretation Comments Bili Direct (test code 0.2 See_Comment [Aut omated message] The = Bili Direct) system which generated this result tra nsmitted reference range : <=0.3. The reference r daniel was not used to int erpret this result as vernell l/abnormal. [place] 447990-11-23 09:18:00 Test Item Value Reference Range Interpretation Comments Bili Indirect (test 0.7 See_Comment [Automa jeremías message] The code = Bili Indirect) system which generated this result tra nsmitted reference range : <=1.0. The reference r daniel was not used to int erpret this result as normal/abnormal . [place] 447990-11-23 09:18:00 Test Item Value Reference Range Interpretation Comments Globulin (test code = Globulin) 2.8 2.7-4.2 [place] [address]-11-23 09:18:00 Test Item Value Reference Range Interpretation Comments A/G Ratio (test code = A/G Ratio) 1.1 1 0.7-1.6 [address]11-23 09:18:00 Test Item Value Reference Range Interpretation Comments Magnesium Lvl (test code = Magnesium 1.8 1.8-2.4 Lvl) [address]11-23 09:18:00 Test Item Value Reference Range Interpretation Comments Phosphorus (test code = Phosphorus) 3.2 2.5-4.5 [place] [address]-11-23 09:18:00 Test Item Value Reference Range Interpretation Comments WBC (test code = WBC) 3.9 3.7-10.4 [place] [address]-11-23 09:18:00 Test Item Value Reference Range Interpretation Comments RBC (test code = RBC) 3.47 4.20-5.40 [place] [address]-11-23 09:18:00 Test Item Value Reference Range Interpretation Comments Hgb (test code = Hgb) 11.0 12.0-16.0 [place] [address]-11-23 09:18:00 Test Item Value Reference Range Interpretation Comments Hct (test code = Hct) 32.2 36.0-48.[address]11-23 09:18:00 Test Item Value Reference Range Interpretation Comments MCV (test code = MCV) 92.6 80.0-98.0 [place] [address]-11-23 09:18:00 Test Item Value Reference Range Interpretation Comments MCH (test code = MCH) 31.7 pg 27.0-31.0 [facility]GvpfvboUTOCYTENZX2016-30-60 09:18:00 Test Item Value Reference Range Interpretation Comments MCHC (test code = MCHC) 34.2 32.0-36.0 [place] 235960-11-23 09:18:00 Test Item Value Reference Range Interpretation Comments RDW (test code = RDW) 12.6 11.5-14.5 [place] 235960-11-23 09:18:00 Test Item Value Reference Range Interpretation Comments Platelet (test code = Platelet) 160 133-450 [facility] CenterYgncgdfRZEBGCIVBC0840-41-48 09:18:00 Test Item Value Reference Range Interpretation Comments MPV (test code = MPV) 9.7 7.4-10.4 [place] [address]-11-23 09:18:00 Test Item Value Reference Range Interpretation Comments PT (test code = PT) 15.1 s 12.0-14.7 [place] 235960-11-23 09:18:00 Test Item Value Reference Range Interpretation Comments INR (test code = INR) 1.18 1 0.85-1.17 [place] 235960-11-23 09:18:00 Test Item Value Reference Range Interpretation Comments Segs (test code = Segs) 53.6 45.0-75.0 [place] 235960-11-23 09:18:00 Test Item Value Reference Range Interpretation Comments Lymphocytes (test code = Lymphocytes) 34.7 20.0-40.0 [place] 235960-11-23 09:18:00 Test Item Value Reference Range Interpretation Comments Monocytes (test code = Monocytes) 9.0 2.0-12.0 [place] [address]-11-23 09:18:00 Test Item Value Reference Range Interpretation Comments Eosinophils (test code = 1.9 See_Comment [A utomated message] The Eosinophils) system which ge nerated this result tra nsmitted reference range : <=4.0. The reference r daniel was not used to int erpret this result as normal/abnormal . [facility] CenterStuxmoqLIBKEUOCVE2597-95-67 09:18:00 Test Item Value Reference Range Interpretation Comments Basophils (test code = 0.8 See_Comment [Aut omated message] The Basophils) system which ge nerated this result tra nsmitted reference range : <=1.0. The reference r daniel was not used to int erpret this result as normal/abnormal . [place] 235960-11-23 09:18:00 Test Item Value Reference Range Interpretation Comments Neutrophils # (test code = Neutrophils 2.1 1.5-8.1 #) [place] 235960-11-23 09:18:00 Test Item Value Reference Range Interpretation Comments Lymphocytes # (test code = Lymphocytes 1.3 1.0-5.5 #) [place] 235960-11-23 09:18:00 Test Item Value Reference Range Interpretation Comments Monocytes # (test code 0.3 See_Comment [Aut omated message] The = Monocytes #) system which generated this result tra nsmitted reference range : <=0.8. The reference r daniel was not used to int erpret this result as normal/abnormal . [facility] CenterRfftpopAORMXINNXQ3536-44-27 09:18:00 Test Item Value Reference Range Interpretation Comments Eosinophils # (test code 0.1 See_Comment [A utomated message] The = Eosinophils #) system whic h generated this result tra nsmitted reference range : <=0.5. The reference r daniel was not used to int erpret this result as normal/abnormal . [facility]2020-11-23 09:18:00 Test Item Value Reference Range Interpretation Comments Ca Ion WB (test code = Ca Ion WB) 1.11 1.05-1.25 [place] 024340-11-23 09:18:00 Test Item Value Reference Range Interpretation Comments Ca Norm WB (test code = Ca Norm WB) 1.08 1.05-1.25 [place] 447990-11-23 09:18:00 Test Item Value Reference Range Interpretation Comments Glucose Lvl (test code = Glucose Lvl) 74 70-99 [place] 447990-11-23 09:18:00 Test Item Value Reference Range Interpretation Comments BUN (test code = BUN) 5 7-22 [place] 447990-11-23 09:18:00 Test Item Value Reference Range Interpretation Comments Creatinine Lvl (test code = Creatinine 0.44 0.50-1.40 Lvl) [facility]2020-11-23 09:18:00 Test Item Value Reference Range Interpretation Comments Sodium Lvl (test code = Sodium Lvl) 138 135-145 [place] 447990-11-23 09:18:00 Test Item Value Reference Range Interpretation Comments Potassium Lvl (test code = Potassium 3.5 3.5-5.1 Lvl) [place] 447990-11-23 09:18:00 Test Item Value Reference Range Interpretation Comments Chloride Lvl (test code = Chloride Lvl) 108 95-109 [place] [address]-11-23 09:18:00 Test Item Value Reference Range Interpretation Comments CO2 (test code = CO2) 23 24-32 [place] [address]-11-23 09:18:00 Test Item Value Reference Range Interpretation Comments Calcium Lvl (test code = Calcium Lvl) 8.3 8.5-10.5 [place] 447990-11-23 09:18:00 Test Item Value Reference Range Interpretation Comments AGAP (test code = AGAP) 10.5 10.0-20.0 [place] [address]-11-23 09:18:00 Test Item Value Reference Range Interpretation Comments eGFR (test code = eGFR) 134 [place] 447990-11-23 09:18:00 Test Item Value Reference Range Interpretation Comments Calcium Lvl (test code = Calcium Lvl) 8.3 8.5-10.5 [place] 447990-11-23 09:18:00 Test Item Value Reference Range Interpretation Comments Total Protein (test code = Total 5.9 6.4-8.4 Protein) [place] 447990-11-23 09:18:00 Test Item Value Reference Range Interpretation Comments Albumin Lvl (test code = Albumin Lvl) 3.1 3.5-5.0 [place] 447990-11-23 09:18:00 Test Item Value Reference Range Interpretation Comments ALT (test code = ALT) 178 See_Comment [Auto mated message] The system which ge nerated this result transmit jeremías reference range : <=65. The reference range was not used to interpr et this result as vernell l/abnormal. [place] 447990-11-23 09:18:00 Test Item Value Reference Range Interpretation Comments AST (test code = AST) 92 See_Comment [Auto mated message] The system which ge nerated this result transmit jeremías reference range : <=37. The reference range was not used to interpr et this result as vernell l/abnormal. [place] [address]-11-23 09:18:00 Test Item Value Reference Range Interpretation Comments Alk Phos (test code = Alk Phos) 128 39-136 [place] [address]-11-23 09:18:00 Test Item Value Reference Range Interpretation Comments Bili Total (test code = Bili Total) 0.9 0.2-1.3 [address]11-23 09:18:00 Test Item Value Reference Range Interpretation Comments Bili Direct (test code 0.2 See_Comment [Aut omated message] The = Bili Direct) system which generated this result tra nsmitted reference range : <=0.3. The reference r daneil was not used to int erpret this result as vernell l/abnormal. [place] [address]-11-23 09:18:00 Test Item Value Reference Range Interpretation Comments Bili Indirect (test 0.7 See_Comment [Automa jeremías message] The code = Bili Indirect) system which generated this result tra nsmitted reference range : <=1.0. The reference r daniel was not used to int erpret this result as normal/abnormal . [place] 447990-11-23 09:18:00 Test Item Value Reference Range Interpretation Comments Globulin (test code = Globulin) 2.8 2.7-4.2 [place] [address]-11-23 09:18:00 Test Item Value Reference Range Interpretation Comments A/G Ratio (test code = A/G Ratio) 1.1 1 0.7-1.6 [address]11-23 09:18:00 Test Item Value Reference Range Interpretation Comments Magnesium Lvl (test code = Magnesium 1.8 1.8-2.4 Lvl) [address]11-23 09:18:00 Test Item Value Reference Range Interpretation Comments Phosphorus (test code = Phosphorus) 3.2 2.5-4.5 [place] [address]-11-23 09:18:00 Test Item Value Reference Range Interpretation Comments WBC (test code = WBC) 3.9 3.7-10.4 [facility] CenterHktidjfBNEACARAAV9549-89-78 09:18:00 Test Item Value Reference Range Interpretation Comments RBC (test code = RBC) 3.47 4.20-5.40 [facility] CenterLzejbfpCPAGGDBAOF3876-16-09 09:18:00 Test Item Value Reference Range Interpretation Comments Hgb (test code = Hgb) 11.0 12.0-16.0 [facility] CenterZcpzakwTRZTFZRGLW0158-96-47 09:18:00 Test Item Value Reference Range Interpretation Comments Hct (test code = Hct) 32.2 36.0-48.0 [facility] CenterNhwlivmDDCMPEWYDQ4302-43-68 09:18:00 Test Item Value Reference Range Interpretation Comments MCV (test code = MCV) 92.6 80.0-98.0 [facility] CenterFihswtqCSEPUKJYOU7551-24-88 09:18:00 Test Item Value Reference Range Interpretation Comments MCH (test code = MCH) 31.7 pg 27.0-31.0 [facility] CenterWxbjhcyKRJUSWEXFO4326-88-78 09:18:00 Test Item Value Reference Range Interpretation Comments MCHC (test code = MCHC) 34.2 32.0-36.0 [facility] CenterYlibvwePOISXSAKUG6681-79-97 09:18:00 Test Item Value Reference Range Interpretation Comments RDW (test code = RDW) 12.6 11.5-14.5 [facility] CenterAlbfcekTMPMZHNOHF0004-66-49 09:18:00 Test Item Value Reference Range Interpretation Comments Platelet (test code = Platelet) 160 133-450 [facility] CenterNgvjswoIFGTXFEUKJ4081-06-11 09:18:00 Test Item Value Reference Range Interpretation Comments MPV (test code = MPV) 9.7 7.4-10.4 [facility] CenterGkrspbrOOTFNZYHGE3858-28-28 09:18:00 Test Item Value Reference Range Interpretation Comments PT (test code = PT) 15.1 s 12.0-14.7 [facility] CenterWpuhwszVOYXIBMDJW7632-87-36 09:18:00 Test Item Value Reference Range Interpretation Comments INR (test code = INR) 1.18 1 0.85-1.17 [place] 235960-11-23 09:18:00 Test Item Value Reference Range Interpretation Comments Segs (test code = Segs) 53.6 45.0-75.0 [facility] CenterBmfihrkLXUHXACBRX0620-69-40 09:18:00 Test Item Value Reference Range Interpretation Comments Lymphocytes (test code = Lymphocytes) 34.7 20.0-40.0 [place] 235960-11-23 09:18:00 Test Item Value Reference Range Interpretation Comments Monocytes (test code = Monocytes) 9.0 2.0-12.0 [place] 235960-11-23 09:18:00 Test Item Value Reference Range Interpretation Comments Eosinophils (test code = 1.9 See_Comment [A utomated message] The Eosinophils) system which ge nerated this result tra nsmitted reference range : <=4.0. The reference r daniel was not used to int erpret this result as normal/abnormal . [place] 235960-11-23 09:18:00 Test Item Value Reference Range Interpretation Comments Basophils (test code = 0.8 See_Comment [Aut omated message] The Basophils) system which ge nerated this result tra nsmitted reference range : <=1.0. The reference r daniel was not used to int erpret this result as normal/abnormal . [facility] CenterZiytstdVANTXXKXSC7047-26-37 09:18:00 Test Item Value Reference Range Interpretation Comments Neutrophils # (test code = Neutrophils 2.1 1.5-8.1 #) [place] 235960-11-23 09:18:00 Test Item Value Reference Range Interpretation Comments Lymphocytes # (test code = Lymphocytes 1.3 1.0-5.5 #) [place] 235960-11-23 09:18:00 Test Item Value Reference Range Interpretation Comments Monocytes # (test code 0.3 See_Comment [Aut omated message] The = Monocytes #) system which generated this result tra nsmitted reference range : <=0.8. The reference r daniel was not used to int erpret this result as normal/abnormal . [place] 235960-11-23 09:18:00 Test Item Value Reference Range Interpretation Comments Eosinophils # (test code 0.1 See_Comment [A utomated message] The = Eosinophils #) system whic h generated this result tra nsmitted reference range : <=0.5. The reference r daniel was not used to int erpret this result as normal/abnormal . [facility] [id number] 09:18:00 Test Item Value Reference Range Interpretation Comments Ca Ion WB (test code = Ca Ion WB) 1.11 1.05-1.25 [facility] [id number] 09:18:00 Test Item Value Reference Range Interpretation Comments Ca Norm WB (test code = Ca Norm WB) 1.08 1.05-1.25 [facility]2020-11-23 09:18:00 Test Item Value Reference Range Interpretation Comments Glucose Lvl (test code = Glucose Lvl) 74 70-99 [place] 447990-11-23 09:18:00 Test Item Value Reference Range Interpretation Comments BUN (test code = BUN) 5 7-22 [place] 447990-11-23 09:18:00 Test Item Value Reference Range Interpretation Comments Creatinine Lvl (test code = Creatinine 0.44 0.50-1.40 Lvl) [place] 447990-11-23 09:18:00 Test Item Value Reference Range Interpretation Comments Sodium Lvl (test code = Sodium Lvl) 138 135-145 [place] 447990-11-23 09:18:00 Test Item Value Reference Range Interpretation Comments Potassium Lvl (test code = Potassium 3.5 3.5-5.1 Lvl) [facility]2020-11-23 09:18:00 Test Item Value Reference Range Interpretation Comments Chloride Lvl (test code = Chloride Lvl) 108 95-109 [facility]2020-11-23 09:18:00 Test Item Value Reference Range Interpretation Comments CO2 (test code = CO2) 23 24-32 [facility]2020-11-23 09:18:00 Test Item Value Reference Range Interpretation Comments Calcium Lvl (test code = Calcium Lvl) 8.3 8.5-10.5 [facility]2020-11-23 09:18:00 Test Item Value Reference Range Interpretation Comments AGAP (test code = AGAP) 10.5 10.0-20.0 [place] 447990-11-23 09:18:00 Test Item Value Reference Range Interpretation Comments eGFR (test code = eGFR) 134 [facility]2020-11-23 09:18:00 Test Item Value Reference Range Interpretation Comments Calcium Lvl (test code = Calcium Lvl) 8.3 8.5-10.5 [address]11-23 09:18:00 Test Item Value Reference Range Interpretation Comments Total Protein (test code = Total 5.9 6.4-8.4 Protein) [place] [address]-23 09:18:00 Test Item Value Reference Range Interpretation Comments Albumin Lvl (test code = Albumin Lvl) 3.1 3.5-5.0 [place] [address]-23 09:18:00 Test Item Value Reference Range Interpretation Comments ALT (test code = ALT) 178 See_Comment [Auto mated message] The system which ge nerated this result transmit jeremías reference range : <=65. The reference range was not used to interpr et this result as vernell l/abnormal. [place] [address]-23 09:18:00 Test Item Value Reference Range Interpretation Comments AST (test code = AST) 92 See_Comment [Auto mated message] The system which ge nerated this result transmit jeremías reference range : <=37. The reference range was not used to interpr et this result as vernell l/abnormal. [address]11-23 09:18:00 Test Item Value Reference Range Interpretation Comments Alk Phos (test code = Alk Phos) 128 39-136 [address]11-23 09:18:00 Test Item Value Reference Range Interpretation Comments Bili Total (test code = Bili Total) 0.9 0.2-1.3 [place] [address]-23 09:18:00 Test Item Value Reference Range Interpretation Comments Bili Direct (test code 0.2 See_Comment [Aut omated message] The = Bili Direct) system which generated this result tra nsmitted reference range : <=0.3. The reference r daniel was not used to int erpret this result as vernell l/abnormal. [place] [address]-23 09:18:00 Test Item Value Reference Range Interpretation Comments Bili Indirect (test 0.7 See_Comment [Automa jeremías message] The code = Bili Indirect) system which generated this result tra nsmitted reference range : <=1.0. The reference r daniel was not used to int erpret this result as normal/abnormal . [facility]2020-11-23 09:18:00 Test Item Value Reference Range Interpretation Comments Globulin (test code = Globulin) 2.8 2.7-4.2 [place] 447990-11-23 09:18:00 Test Item Value Reference Range Interpretation Comments A/G Ratio (test code = A/G Ratio) 1.1 1 0.7-1.6 [place] [address]-11-23 09:18:00 Test Item Value Reference Range Interpretation Comments Magnesium Lvl (test code = Magnesium 1.8 1.8-2.4 Lvl) [place] 447990-11-23 09:18:00 Test Item Value Reference Range Interpretation Comments Phosphorus (test code = Phosphorus) 3.2 2.5-4.5 [place] [address]-11-23 09:18:00 Test Item Value Reference Range Interpretation Comments WBC (test code = WBC) 3.9 3.7-10.4 [place] [address]-11-23 09:18:00 Test Item Value Reference Range Interpretation Comments RBC (test code = RBC) 3.47 4.20-5.40 [place] [address]-11-23 09:18:00 Test Item Value Reference Range Interpretation Comments Hgb (test code = Hgb) 11.0 12.0-16.0 [place] [address]-11-23 09:18:00 Test Item Value Reference Range Interpretation Comments Hct (test code = Hct) 32.2 36.0-48.0 [place] [address]-11-23 09:18:00 Test Item Value Reference Range Interpretation Comments MCV (test code = MCV) 92.6 80.0-98.0 [place] [address]-11-23 09:18:00 Test Item Value Reference Range Interpretation Comments MCH (test code = MCH) 31.7 pg 27.0-31.0 [place] [address]-11-23 09:18:00 Test Item Value Reference Range Interpretation Comments MCHC (test code = MCHC) 34.2 32.0-36.0 [place] [address]-11-23 09:18:00 Test Item Value Reference Range Interpretation Comments RDW (test code = RDW) 12.6 11.5-14.5 [place] 235960-11-23 09:18:00 Test Item Value Reference Range Interpretation Comments Platelet (test code = Platelet) 160 133-450 [place] 235960-11-23 09:18:00 Test Item Value Reference Range Interpretation Comments MPV (test code = MPV) 9.7 7.4-10.4 [place] 235960-11-23 09:18:00 Test Item Value Reference Range Interpretation Comments PT (test code = PT) 15.1 s 12.0-14.7 [place] [address]-11-23 09:18:00 Test Item Value Reference Range Interpretation Comments INR (test code = INR) 1.18 1 0.85-1.17 [place] [address]-11-23 09:18:00 Test Item Value Reference Range Interpretation Comments Segs (test code = Segs) 53.6 45.0-75.0 [place] [address]-11-23 09:18:00 Test Item Value Reference Range Interpretation Comments Lymphocytes (test code = Lymphocytes) 34.7 20.0-40.0 [place] [address]-11-23 09:18:00 Test Item Value Reference Range Interpretation Comments Monocytes (test code = Monocytes) 9.0 2.0-12.0 [place] 235960-11-23 09:18:00 Test Item Value Reference Range Interpretation Comments Eosinophils (test code = 1.9 See_Comment [A utomated message] The Eosinophils) system which ge nerated this result tra nsmitted reference range : <=4.0. The reference r daniel was not used to int erpret this result as normal/abnormal . [place] 235960-11-23 09:18:00 Test Item Value Reference Range Interpretation Comments Basophils (test code = 0.8 See_Comment [Aut omated message] The Basophils) system which ge nerated this result tra nsmitted reference range : <=1.0. The reference r daniel was not used to int erpret this result as normal/abnormal . [place] [address]-11-23 09:18:00 Test Item Value Reference Range Interpretation Comments Neutrophils # (test code = Neutrophils 2.1 1.5-8.1 #) [place] 235960-11-23 09:18:00 Test Item Value Reference Range Interpretation Comments Lymphocytes # (test code = Lymphocytes 1.3 1.0-5.5 #) [place] [address]-11-23 09:18:00 Test Item Value Reference Range Interpretation Comments Monocytes # (test code 0.3 See_Comment [Aut omated message] The = Monocytes #) system which generated this result tra nsmitted reference range : <=0.8. The reference r daniel was not used to int erpret this result as normal/abnormal . [place] [address]-11-23 09:18:00 Test Item Value Reference Range Interpretation Comments Eosinophils # (test code 0.1 See_Comment [A utomated message] The = Eosinophils #) system whic h generated this result tra nsmitted reference range : <=0.5. The reference r daniel was not used to int erpret this result as normal/abnormal . [place] 024340-11-23 09:18:00 Test Item Value Reference Range Interpretation Comments Ca Ion WB (test code = Ca Ion WB) 1.11 1.05-1.25 [address]11-23 09:18:00 Test Item Value Reference Range Interpretation Comments Ca Norm WB (test code = Ca Norm WB) 1.08 1.05-1.25 [place] [address]-11-23 09:18:00 Test Item Value Reference Range Interpretation Comments Glucose Lvl (test code = Glucose Lvl) 74 70-99 [place] [address]-11-23 09:18:00 Test Item Value Reference Range Interpretation Comments BUN (test code = BUN) 5 7-22 [place] [address]-11-23 09:18:00 Test Item Value Reference Range Interpretation Comments Creatinine Lvl (test code = Creatinine 0.44 0.50-1.40 Lvl) [place] [address]-11-23 09:18:00 Test Item Value Reference Range Interpretation Comments Sodium Lvl (test code = Sodium Lvl) 138 135-145 [place] [address]-11-23 09:18:00 Test Item Value Reference Range Interpretation Comments Potassium Lvl (test code = Potassium 3.5 3.5-5.1 Lvl) [place] [address]-11-23 09:18:00 Test Item Value Reference Range Interpretation Comments Chloride Lvl (test code = Chloride Lvl) 108 95-109 [place] 447990-11-23 09:18:00 Test Item Value Reference Range Interpretation Comments CO2 (test code = CO2) 23 24-32 [place] 447990-11-23 09:18:00 Test Item Value Reference Range Interpretation Comments Calcium Lvl (test code = Calcium Lvl) 8.3 8.5-10.5 [place] [address]-11-23 09:18:00 Test Item Value Reference Range Interpretation Comments AGAP (test code = AGAP) 10.5 10.0-20.0 [place] [address]-11-23 09:18:00 Test Item Value Reference Range Interpretation Comments eGFR (test code = eGFR) 134 [place] 447990-11-23 09:18:00 Test Item Value Reference Range Interpretation Comments Calcium Lvl (test code = Calcium Lvl) 8.3 8.5-10.5 [place] [address]-11-23 09:18:00 Test Item Value Reference Range Interpretation Comments Total Protein (test code = Total 5.9 6.4-8.4 Protein) [place] [address]-11-23 09:18:00 Test Item Value Reference Range Interpretation Comments Albumin Lvl (test code = Albumin Lvl) 3.1 3.5-5.0 [place] 447990-11-23 09:18:00 Test Item Value Reference Range Interpretation Comments ALT (test code = ALT) 178 See_Comment [Auto mated message] The system which ge nerated this result transmit jeremías reference range : <=65. The reference range was not used to interpr et this result as vernell l/abnormal. [place] [address]-11-23 09:18:00 Test Item Value Reference Range Interpretation Comments AST (test code = AST) 92 See_Comment [Auto mated message] The system which Credii nerated this result transmit jeremías reference range : <=37. The reference range was not used to interpr et this result as vernell l/abnormal. [place] [address]-11-23 09:18:00 Test Item Value Reference Range Interpretation Comments Alk Phos (test code = Alk Phos) 128 39-136 [place] [address]-23 09:18:00 Test Item Value Reference Range Interpretation Comments Bili Total (test code = Bili Total) 0.9 0.2-1.3 [address]11-23 09:18:00 Test Item Value Reference Range Interpretation Comments Bili Direct (test code 0.2 See_Comment [Aut omated message] The = Bili Direct) system which generated this result tra nsmitted reference range : <=0.3. The reference r daniel was not used to int erpret this result as vernell l/abnormal. [address]11-23 09:18:00 Test Item Value Reference Range Interpretation Comments Bili Indirect (test 0.7 See_Comment [Automa jeremías message] The code = Bili Indirect) system which generated this result tra nsmitted reference range : <=1.0. The reference r daniel was not used to int erpret this result as normal/abnormal . [address]11-23 09:18:00 Test Item Value Reference Range Interpretation Comments Globulin (test code = Globulin) 2.8 2.7-4.2 [address]11-23 09:18:00 Test Item Value Reference Range Interpretation Comments A/G Ratio (test code = A/G Ratio) 1.1 1 0.7-1.6 [address]11-23 09:18:00 Test Item Value Reference Range Interpretation Comments Magnesium Lvl (test code = Magnesium 1.8 1.8-2.4 Lvl) [address]11-23 09:18:00 Test Item Value Reference Range Interpretation Comments Phosphorus (test code = Phosphorus) 3.2 2.5-4.[address]11-23 09:18:00 Test Item Value Reference Range Interpretation Comments WBC (test code = WBC) 3.9 3.7-10.4 [place] [address]-11-23 09:18:00 Test Item Value Reference Range Interpretation Comments RBC (test code = RBC) 3.47 4.20-5.[address]11-23 09:18:00 Test Item Value Reference Range Interpretation Comments Hgb (test code = Hgb) 11.0 12.0-16.0 [place] [address]-11-23 09:18:00 Test Item Value Reference Range Interpretation Comments Hct (test code = Hct) 32.2 36.0-48.0 [place] 235960-11-23 09:18:00 Test Item Value Reference Range Interpretation Comments MCV (test code = MCV) 92.6 80.0-98.0 [place] [address]-11-23 09:18:00 Test Item Value Reference Range Interpretation Comments MCH (test code = MCH) 31.7 pg 27.0-31.0 [place] [address]-11-23 09:18:00 Test Item Value Reference Range Interpretation Comments MCHC (test code = MCHC) 34.2 32.0-36.0 [place] 235960-11-23 09:18:00 Test Item Value Reference Range Interpretation Comments RDW (test code = RDW) 12.6 11.5-14.5 [place] [address]-11-23 09:18:00 Test Item Value Reference Range Interpretation Comments Platelet (test code = Platelet) 160 133-450 [facility]ball[facility]BMHU[facility]AM[facility]14[facility] 09:18:00 Test Item Value Reference Range Interpretation Comments MPV (test code = MPV) 9.7 7.4-10.4 [place] [address]-11-23 09:18:00 Test Item Value Reference Range Interpretation Comments PT (test code = PT) 15.1 s 12.0-14.7 [place] 235960-11-23 09:18:00 Test Item Value Reference Range Interpretation Comments INR (test code = INR) 1.18 1 0.85-1.17 [place] [address]-11-23 09:18:00 Test Item Value Reference Range Interpretation Comments Segs (test code = Segs) 53.6 45.0-75.0 [place] [address]-11-23 09:18:00 Test Item Value Reference Range Interpretation Comments Lymphocytes (test code = Lymphocytes) 34.7 20.0-40.0 [place] [address]-11-23 09:18:00 Test Item Value Reference Range Interpretation Comments Monocytes (test code = Monocytes) 9.0 2.0-12.0 [place] 235960-11-23 09:18:00 Test Item Value Reference Range Interpretation Comments Eosinophils (test code = 1.9 See_Comment [A utomated message] The Eosinophils) system which ge nerated this result tra nsmitted reference range : <=4.0. The reference r daniel was not used to int erpret this result as normal/abnormal . [facility]FecpeopPDNBCOUXLD9140-59-45 09:18:00 Test Item Value Reference Range Interpretation Comments Basophils (test code = 0.8 See_Comment [Aut omated message] The Basophils) system which ge nerated this result tra nsmitted reference range : <=1.0. The reference r daniel was not used to int erpret this result as normal/abnormal . [facility] CenterVusdxjaEEZMVXHNBG1865-22-85 09:18:00 Test Item Value Reference Range Interpretation Comments Neutrophils # (test code = Neutrophils 2.1 1.5-8.1 #) [facility] CenterOavmfcrLQQMQCMSZO6960-80-59 09:18:00 Test Item Value Reference Range Interpretation Comments Lymphocytes # (test code = Lymphocytes 1.3 1.0-5.5 #) [facility] CenterTnkpkmwXHREGIHMKG1604-66-42 09:18:00 Test Item Value Reference Range Interpretation Comments Monocytes # (test code 0.3 See_Comment [Aut omated message] The = Monocytes #) system which generated this result tra nsmitted reference range : <=0.8. The reference r daniel was not used to int erpret this result as normal/abnormal . [facility] CenterHrulovlZVLOOETFGD1190-73-78 09:18:00 Test Item Value Reference Range Interpretation Comments Eosinophils # (test code 0.1 See_Comment [A utomated message] The = Eosinophils #) system whic h generated this result tra nsmitted reference range : <=0.5. The reference r daniel was not used to int erpret this result as normal/abnormal . [facility]ID [id number] 09:18:00 Test Item Value Reference Range Interpretation Comments Ca Ion WB (test code = Ca Ion WB) 1.11 1.05-1.[address] [facility] HospitalPARATHYROID [id number] 09:18:00 Test Item Value Reference Range Interpretation Comments Ca Norm WB (test code = Ca Norm WB) 1.08 1.05-1.[address] [facility] HospitalCHEM [id number] 09:18:00 Test Item Value Reference Range Interpretation Comments Glucose Lvl (test code = Glucose Lvl) 74 70-99 [place] 447990-11-23 09:18:00 Test Item Value Reference Range Interpretation Comments BUN (test code = BUN) 5 7-22 [place] 447990-11-23 09:18:00 Test Item Value Reference Range Interpretation Comments Creatinine Lvl (test code = Creatinine 0.44 0.50-1.40 Lvl) [place] 447990-11-23 09:18:00 Test Item Value Reference Range Interpretation Comments Sodium Lvl (test code = Sodium Lvl) 138 135-145 [place] 447990-11-23 09:18:00 Test Item Value Reference Range Interpretation Comments Potassium Lvl (test code = Potassium 3.5 3.5-5.1 Lvl) [place] 447990-11-23 09:18:00 Test Item Value Reference Range Interpretation Comments Chloride Lvl (test code = Chloride Lvl) 108 95-109 [place] 447990-11-23 09:18:00 Test Item Value Reference Range Interpretation Comments CO2 (test code = CO2) 23 24-32 [place] 447990-11-23 09:18:00 Test Item Value Reference Range Interpretation Comments Calcium Lvl (test code = Calcium Lvl) 8.3 8.5-10.5 [place] 447990-11-23 09:18:00 Test Item Value Reference Range Interpretation Comments AGAP (test code = AGAP) 10.5 10.0-20.0 [place] 447990-11-23 09:18:00 Test Item Value Reference Range Interpretation Comments eGFR (test code = eGFR) 134 [place] 447990-11-23 09:18:00 Test Item Value Reference Range Interpretation Comments Calcium Lvl (test code = Calcium Lvl) 8.3 8.5-10.5 [place] 447990-11-23 09:18:00 Test Item Value Reference Range Interpretation Comments Total Protein (test code = Total 5.9 6.4-8.4 Protein) [place] 447990-11-23 09:18:00 Test Item Value Reference Range Interpretation Comments Albumin Lvl (test code = Albumin Lvl) 3.1 3.5-5.0 [facility] [employer] [id number] 09:18:00 Test Item Value Reference Range Interpretation Comments ALT (test code = ALT) 178 See_Comment [Auto mated message] The system which ge nerated this result transmit jeremías reference range : <=65. The reference range was not used to interpr et this result as vernell l/abnormal. [facility] [employer] [id number] 09:18:00 Test Item Value Reference Range Interpretation Comments AST (test code = AST) 92 See_Comment [Auto mated message] The system which ge nerated this result transmit jeremías reference range : <=37. The reference range was not used to interpr et this result as vernell l/abnormal. [facility] [employer] [id number] 09:18:00 Test Item Value Reference Range Interpretation Comments Alk Phos (test code = Alk Phos) 128 39-136 [facility] [employer] [id number] 09:18:00 Test Item Value Reference Range Interpretation Comments Bili Total (test code = Bili Total) 0.9 0.2-1.3 [facility] [employer] [id number] 09:18:00 Test Item Value Reference Range Interpretation Comments Bili Direct (test code 0.2 See_Comment [Aut omated message] The = Bili Direct) system which generated this result tra nsmitted reference range : <=0.3. The reference r daniel was not used to int erpret this result as vernell l/abnormal. [facility] [employer] [id number] 09:18:00 Test Item Value Reference Range Interpretation Comments Bili Indirect (test 0.7 See_Comment [Automa jeremías message] The code = Bili Indirect) system which generated this result tra nsmitted reference range : <=1.0. The reference r daniel was not used to int erpret this result as normal/abnormal . [facility] [employer] [id number] 09:18:00 Test Item Value Reference Range Interpretation Comments Globulin (test code = Globulin) 2.8 2.7-4.2 [facility] [employer] [id number] 09:18:00 Test Item Value Reference Range Interpretation Comments A/G Ratio (test code = A/G Ratio) 1.1 1 0.7-1.6 [facility]2020-11-23 09:18:00 Test Item Value Reference Range Interpretation Comments Magnesium Lvl (test code = Magnesium 1.8 1.8-2.4 Lvl) [place] 447990-11-23 09:18:00 Test Item Value Reference Range Interpretation Comments Phosphorus (test code = Phosphorus) 3.2 2.5-4.5 [place] 235960-11-23 09:18:00 Test Item Value Reference Range Interpretation Comments WBC (test code = WBC) 3.9 3.7-10.4 [place] 235960-11-23 09:18:00 Test Item Value Reference Range Interpretation Comments RBC (test code = RBC) 3.47 4.20-5.40 [place] [address]-11-23 09:18:00 Test Item Value Reference Range Interpretation Comments Hgb (test code = Hgb) 11.0 12.0-16.0 [place] [address]-11-23 09:18:00 Test Item Value Reference Range Interpretation Comments Hct (test code = Hct) 32.2 36.0-48.0 [place] 235960-11-23 09:18:00 Test Item Value Reference Range Interpretation Comments MCV (test code = MCV) 92.6 80.0-98.0 [place] [address]-11-23 09:18:00 Test Item Value Reference Range Interpretation Comments MCH (test code = MCH) 31.7 pg 27.0-31.0 [place] [address]-11-23 09:18:00 Test Item Value Reference Range Interpretation Comments MCHC (test code = MCHC) 34.2 32.0-36.0 [place] [address]-11-23 09:18:00 Test Item Value Reference Range Interpretation Comments RDW (test code = RDW) 12.6 11.5-14.5 [place] [address]-11-23 09:18:00 Test Item Value Reference Range Interpretation Comments Platelet (test code = Platelet) 160 133-450 [place] 235960-11-23 09:18:00 Test Item Value Reference Range Interpretation Comments MPV (test code = MPV) 9.7 7.4-10.4 [place] [address]-11-23 09:18:00 Test Item Value Reference Range Interpretation Comments PT (test code = PT) 15.1 s 12.0-14.7 [place] 235960-11-23 09:18:00 Test Item Value Reference Range Interpretation Comments INR (test code = INR) 1.18 1 0.85-1.17 [place] 235960-11-23 09:18:00 Test Item Value Reference Range Interpretation Comments Segs (test code = Segs) 53.6 45.0-75.0 [place] [address]-11-23 09:18:00 Test Item Value Reference Range Interpretation Comments Lymphocytes (test code = Lymphocytes) 34.7 20.0-40.0 [place] [address]-11-23 09:18:00 Test Item Value Reference Range Interpretation Comments Monocytes (test code = Monocytes) 9.0 2.0-12.0 [place] [address]-11-23 09:18:00 Test Item Value Reference Range Interpretation Comments Eosinophils (test code = 1.9 See_Comment [A utomated message] The Eosinophils) system which ge nerated this result tra nsmitted reference range : <=4.0. The reference r daniel was not used to int erpret this result as normal/abnormal . [place] 235960-11-23 09:18:00 Test Item Value Reference Range Interpretation Comments Basophils (test code = 0.8 See_Comment [Aut omated message] The Basophils) system which ge nerated this result tra nsmitted reference range : <=1.0. The reference r daniel was not used to int erpret this result as normal/abnormal . [place] 235960-11-23 09:18:00 Test Item Value Reference Range Interpretation Comments Neutrophils # (test code = Neutrophils 2.1 1.5-8.1 #) [place] [address]-11-23 09:18:00 Test Item Value Reference Range Interpretation Comments Lymphocytes # (test code = Lymphocytes 1.3 1.0-5.5 #) [place] [address]-11-23 09:18:00 Test Item Value Reference Range Interpretation Comments Monocytes # (test code 0.3 See_Comment [Aut omated message] The = Monocytes #) system which generated this result tra nsmitted reference range : <=0.8. The reference r daniel was not used to int erpret this result as normal/abnormal . [facility]irsohdNVNHLKMQQR7711-[facility] 09:18:00 Test Item Value Reference Range Interpretation Comments Eosinophils # (test code 0.1 See_Comment [A utomated message] The = Eosinophils #) system [employer] h generated this result tra nsmitted reference range : <=0.5. The reference r daniel was not used to int erpret this result as normal/abnormal . [id number] 09:18:00 Test Item Value Reference Range Interpretation Comments Ca Ion WB (test code = Ca Ion WB) 1.11 1.05-1.25 [facility] [id number] 09:18:00 Test Item Value Reference Range Interpretation Comments Ca Norm WB (test code = Ca Norm WB) 1.08 1.05-1.25 [place] 447990-11-23 09:18:00 Test Item Value Reference Range Interpretation Comments Glucose Lvl (test code = Glucose Lvl) 74 70-99 [place] 447990-11-23 09:18:00 Test Item Value Reference Range Interpretation Comments BUN (test code = BUN) 5 7-22 [place] 447990-11-23 09:18:00 Test Item Value Reference Range Interpretation Comments Creatinine Lvl (test code = Creatinine 0.44 0.50-1.40 Lvl) [place] [address]-11-23 09:18:00 Test Item Value Reference Range Interpretation Comments Sodium Lvl (test code = Sodium Lvl) 138 135-145 [place] 447990-11-23 09:18:00 Test Item Value Reference Range Interpretation Comments Potassium Lvl (test code = Potassium 3.5 3.5-5.1 Lvl) [place] 447990-11-23 09:18:00 Test Item Value Reference Range Interpretation Comments Chloride Lvl (test code = Chloride Lvl) 108 95-109 [place] 447990-11-23 09:18:00 Test Item Value Reference Range Interpretation Comments CO2 (test code = CO2) 23 24-32 [place] [address]-11-23 09:18:00 Test Item Value Reference Range Interpretation Comments Calcium Lvl (test code = Calcium Lvl) 8.3 8.5-10.5 [place] [address]-11-23 09:18:00 Test Item Value Reference Range Interpretation Comments AGAP (test code = AGAP) 10.5 10.0-20.0 [place] [address]-11-23 09:18:00 Test Item Value Reference Range Interpretation Comments eGFR (test code = eGFR) 134 [place] 447990-11-23 09:18:00 Test Item Value Reference Range Interpretation Comments Calcium Lvl (test code = Calcium Lvl) 8.3 8.5-10.5 [place] [address]-11-23 09:18:00 Test Item Value Reference Range Interpretation Comments Total Protein (test code = Total 5.9 6.4-8.4 Protein) [address]11-23 09:18:00 Test Item Value Reference Range Interpretation Comments Albumin Lvl (test code = Albumin Lvl) 3.1 3.5-5.0 [place] [address]-11-23 09:18:00 Test Item Value Reference Range Interpretation Comments ALT (test code = ALT) 178 See_Comment [Auto mated message] The system which ge nerated this result transmit jeremías reference range : <=65. The reference range was not used to interpr et this result as vernell l/abnormal. [address]11-23 09:18:00 Test Item Value Reference Range Interpretation Comments AST (test code = AST) 92 See_Comment [Auto mated message] The system which ge nerated this result transmit jeremías reference range : <=37. The reference range was not used to interpr et this result as vernell l/abnormal. [place] [address]-11-23 09:18:00 Test Item Value Reference Range Interpretation Comments Alk Phos (test code = Alk Phos) 128 39-136 [address]11-23 09:18:00 Test Item Value Reference Range Interpretation Comments Bili Total (test code = Bili Total) 0.9 0.2-1.3 [address]11-23 09:18:00 Test Item Value Reference Range Interpretation Comments Bili Direct (test code 0.2 See_Comment [Aut omated message] The = Bili Direct) system which generated this result tra nsmitted reference range : <=0.3. The reference r daniel was not used to int erpret this result as vernell l/abnormal. [place] 447990-11-23 09:18:00 Test Item Value Reference Range Interpretation Comments Bili Indirect (test 0.7 See_Comment [Automa jeremías message] The code = Bili Indirect) system which generated this result tra nsmitted reference range : <=1.0. The reference r daniel was not used to int erpret this result as normal/abnormal . [place] 447990-11-23 09:18:00 Test Item Value Reference Range Interpretation Comments Globulin (test code = Globulin) 2.8 2.7-4.2 [address]11-23 09:18:00 Test Item Value Reference Range Interpretation Comments A/G Ratio (test code = A/G Ratio) 1.1 1 0.7-1.6 [address]11-23 09:18:00 Test Item Value Reference Range Interpretation Comments Magnesium Lvl (test code = Magnesium 1.8 1.8-2.4 Lvl) [address]11-23 09:18:00 Test Item Value Reference Range Interpretation Comments Phosphorus (test code = Phosphorus) 3.2 2.5-4.5 [place] [address]-11-23 09:18:00 Test Item Value Reference Range Interpretation Comments WBC (test code = WBC) 3.9 3.7-10.4 [place] [address]-11-23 09:18:00 Test Item Value Reference Range Interpretation Comments RBC (test code = RBC) 3.47 4.20-5.40 [place] [address]-11-23 09:18:00 Test Item Value Reference Range Interpretation Comments Hgb (test code = Hgb) 11.0 12.0-16.[address]11-23 09:18:00 Test Item Value Reference Range Interpretation Comments Hct (test code = Hct) 32.2 36.0-48.0 [place] [address]-11-23 09:18:00 Test Item Value Reference Range Interpretation Comments MCV (test code = MCV) 92.6 80.0-98.0 [place] [address]-11-23 09:18:00 Test Item Value Reference Range Interpretation Comments MCH (test code = MCH) 31.7 pg 27.0-31.0 [place] 235960-11-23 09:18:00 Test Item Value Reference Range Interpretation Comments MCHC (test code = MCHC) 34.2 32.0-36.0 [place] 235960-11-23 09:18:00 Test Item Value Reference Range Interpretation Comments RDW (test code = RDW) 12.6 11.5-14.5 [place] [address]-11-23 09:18:00 Test Item Value Reference Range Interpretation Comments Platelet (test code = Platelet) 160 133-450 [place] [address]-11-23 09:18:00 Test Item Value Reference Range Interpretation Comments MPV (test code = MPV) 9.7 7.4-10.4 [place] [address]-11-23 09:18:00 Test Item Value Reference Range Interpretation Comments PT (test code = PT) 15.1 s 12.0-14.7 [place] [address]-11-23 09:18:00 Test Item Value Reference Range Interpretation Comments INR (test code = INR) 1.18 1 0.85-1.17 [place] [address]-11-23 09:18:00 Test Item Value Reference Range Interpretation Comments Segs (test code = Segs) 53.6 45.0-75.0 [place] [address]-11-23 09:18:00 Test Item Value Reference Range Interpretation Comments Lymphocytes (test code = Lymphocytes) 34.7 20.0-40.0 [place] 235960-11-23 09:18:00 Test Item Value Reference Range Interpretation Comments Monocytes (test code = Monocytes) 9.0 2.0-12.0 [place] [address]-11-23 09:18:00 Test Item Value Reference Range Interpretation Comments Eosinophils (test code = 1.9 See_Comment [A utomated message] The Eosinophils) system which ge nerated this result tra nsmitted reference range : <=4.0. The reference r daniel was not used to int erpret this result as normal/abnormal . [place] 235960-11-23 09:18:00 Test Item Value Reference Range Interpretation Comments Basophils (test code = 0.8 See_Comment [Aut omated message] The Basophils) system which ge nerated this result tra nsmitted reference range : <=1.0. The reference r daniel was not used to int erpret this result as normal/abnormal . [place] 235960-11-23 09:18:00 Test Item Value Reference Range Interpretation Comments Neutrophils # (test code = Neutrophils 2.1 1.5-8.1 #) [place] 235960-11-23 09:18:00 Test Item Value Reference Range Interpretation Comments Lymphocytes # (test code = Lymphocytes 1.3 1.0-5.5 #) [place] [address]-11-23 09:18:00 Test Item Value Reference Range Interpretation Comments Monocytes # (test code 0.3 See_Comment [Aut omated message] The = Monocytes #) system which generated this result tra nsmitted reference range : <=0.8. The reference r daniel was not used to int erpret this result as normal/abnormal . [place] 235960-11-23 09:18:00 Test Item Value Reference Range Interpretation Comments Eosinophils # (test code 0.1 See_Comment [A utomated message] The = Eosinophils #) system whic h generated this result tra nsmitted reference range : <=0.5. The reference r daniel was not used to int erpret this result as normal/abnormal . [facility]2020-11-23 09:18:00 Test Item Value Reference Range Interpretation Comments Ca Ion WB (test code = Ca Ion WB) 1.11 1.05-1.25 [place] 024340-11-23 09:18:00 Test Item Value Reference Range Interpretation Comments Ca Norm WB (test code = Ca Norm WB) 1.08 1.05-1.25 [place] 447990-11-23 09:18:00 Test Item Value Reference Range Interpretation Comments Glucose Lvl (test code = Glucose Lvl) 74 70-99 [place] 447990-11-23 09:18:00 Test Item Value Reference Range Interpretation Comments BUN (test code = BUN) 5 7-22 [place] 447990-11-23 09:18:00 Test Item Value Reference Range Interpretation Comments Creatinine Lvl (test code = Creatinine 0.44 0.50-1.40 Lvl) [place] [address]-11-23 09:18:00 Test Item Value Reference Range Interpretation Comments Sodium Lvl (test code = Sodium Lvl) 138 135-145 [place] [address]-11-23 09:18:00 Test Item Value Reference Range Interpretation Comments Potassium Lvl (test code = Potassium 3.5 3.5-5.1 Lvl) [place] 447990-11-23 09:18:00 Test Item Value Reference Range Interpretation Comments Chloride Lvl (test code = Chloride Lvl) 108 95-109 [place] [address]-11-23 09:18:00 Test Item Value Reference Range Interpretation Comments CO2 (test code = CO2) 23 24-32 [place] [address]-11-23 09:18:00 Test Item Value Reference Range Interpretation Comments Calcium Lvl (test code = Calcium Lvl) 8.3 8.5-10.5 [place] 447990-11-23 09:18:00 Test Item Value Reference Range Interpretation Comments AGAP (test code = AGAP) 10.5 10.0-20.0 [place] [address]-11-23 09:18:00 Test Item Value Reference Range Interpretation Comments eGFR (test code = eGFR) 134 [place] 447990-11-23 09:18:00 Test Item Value Reference Range Interpretation Comments Calcium Lvl (test code = Calcium Lvl) 8.3 8.5-10.5 [place] 447990-11-23 09:18:00 Test Item Value Reference Range Interpretation Comments Total Protein (test code = Total 5.9 6.4-8.4 Protein) [place] 447990-11-23 09:18:00 Test Item Value Reference Range Interpretation Comments Albumin Lvl (test code = Albumin Lvl) 3.1 3.5-5.0 [place] [address]-11-23 09:18:00 Test Item Value Reference Range Interpretation Comments ALT (test code = ALT) 178 See_Comment [Auto mated message] The system which ge nerated this result transmit jeremías reference range : <=65. The reference range was not used to interpr et this result as vernell l/abnormal. [place] [address]-11-23 09:18:00 Test Item Value Reference Range Interpretation Comments AST (test code = AST) 92 See_Comment [Auto mated message] The system which ge nerated this result transmit jeremías reference range : <=37. The reference range was not used to interpr et this result as vernell l/abnormal. [place] 447990-11-23 09:18:00 Test Item Value Reference Range Interpretation Comments Alk Phos (test code = Alk Phos) 128 39-136 [place] [address]-11-23 09:18:00 Test Item Value Reference Range Interpretation Comments Bili Total (test code = Bili Total) 0.9 0.2-1.3 [address]11-23 09:18:00 Test Item Value Reference Range Interpretation Comments Bili Direct (test code 0.2 See_Comment [Aut omated message] The = Bili Direct) system which generated this result tra nsmitted reference range : <=0.3. The reference r daniel was not used to int erpret this result as vernell l/abnormal. [place] [address]-11-23 09:18:00 Test Item Value Reference Range Interpretation Comments Bili Indirect (test 0.7 See_Comment [Automa jeremías message] The code = Bili Indirect) system which generated this result tra nsmitted reference range : <=1.0. The reference r daniel was not used to int erpret this result as normal/abnormal . [address]11-23 09:18:00 Test Item Value Reference Range Interpretation Comments Globulin (test code = Globulin) 2.8 2.7-4.2 [address]11-23 09:18:00 Test Item Value Reference Range Interpretation Comments A/G Ratio (test code = A/G Ratio) 1.1 1 0.7-1.6 [address]11-23 09:18:00 Test Item Value Reference Range Interpretation Comments Magnesium Lvl (test code = Magnesium 1.8 1.8-2.4 Lvl) [address]11-23 09:18:00 Test Item Value Reference Range Interpretation Comments Phosphorus (test code = Phosphorus) 3.2 2.5-4.5 [place] [address]960-11-23 09:18:00 Test Item Value Reference Range Interpretation Comments WBC (test code = WBC) 3.9 3.7-10.4 [facility]46[facility]:18:00 Test Item Value Reference Range Interpretation Comments RBC (test code = RBC) 3.47 4.20-5.40 [facility]QuysfrkYXSIXIEWWX1232-86-53 09:18:00 Test Item Value Reference Range Interpretation Comments Hgb (test code = Hgb) 11.0 12.0-16.0 [place] 235960-11-23 09:18:00 Test Item Value Reference Range Interpretation Comments Hct (test code = Hct) 32.2 36.0-48.0 [place] [address]-11-23 09:18:00 Test Item Value Reference Range Interpretation Comments MCV (test code = MCV) 92.6 80.0-98.0 [place] 235960-11-23 09:18:00 Test Item Value Reference Range Interpretation Comments MCH (test code = MCH) 31.7 pg 27.0-31.0 [facility]OemrbseMVKVWHTVPG5052-82-35 09:18:00 Test Item Value Reference Range Interpretation Comments MCHC (test code = MCHC) 34.2 32.0-36.0 [facility] CenterTbvhcmvSQJOMHTRWM1368-69-24 09:18:00 Test Item Value Reference Range Interpretation Comments RDW (test code = RDW) 12.6 11.5-14.5 [facility] CenterRfsapeeORZKDXBKCD7208-41-63 09:18:00 Test Item Value Reference Range Interpretation Comments Platelet (test code = Platelet) 160 133-450 [facility] CenterUbbqqypYQGABQDAFT4671-10-40 09:18:00 Test Item Value Reference Range Interpretation Comments MPV (test code = MPV) 9.7 7.4-10.4 [place] [address]960-11-23 09:18:00 Test Item Value Reference Range Interpretation Comments PT (test code = PT) 15.1 s 12.0-14.7 [place] 235960-11-23 09:18:00 Test Item Value Reference Range Interpretation Comments INR (test code = INR) 1.18 1 0.85-1.17 [place] 235960-11-23 09:18:00 Test Item Value Reference Range Interpretation Comments Segs (test code = Segs) 53.6 45.0-75.[address]11-23 09:18:00 Test Item Value Reference Range Interpretation Comments Lymphocytes (test code = Lymphocytes) 34.7 20.0-40.0 [place] [address]-11-23 09:18:00 Test Item Value Reference Range Interpretation Comments Monocytes (test code = Monocytes) 9.0 2.0-12.0 [place] [address]-11-23 09:18:00 Test Item Value Reference Range Interpretation Comments Eosinophils (test code = 1.9 See_Comment [A utomated message] The Eosinophils) system which ge nerated this result tra nsmitted reference range : <=4.0. The reference r daniel was not used to int erpret this result as normal/abnormal . [address]11-23 09:18:00 Test Item Value Reference Range Interpretation Comments Basophils (test code = 0.8 See_Comment [Aut omated message] The Basophils) system which ge nerated this result tra nsmitted reference range : <=1.0. The reference r daniel was not used to int erpret this result as normal/abnormal . [place] [address]-11-23 09:18:00 Test Item Value Reference Range Interpretation Comments Neutrophils # (test code = Neutrophils 2.1 1.5-8.1 #) [place] [address]-11-23 09:18:00 Test Item Value Reference Range Interpretation Comments Lymphocytes # (test code = Lymphocytes 1.3 1.0-5.5 #) [place] 447990-11-22 12:29:00 Test Item Value Reference Range Interpretation Comments Total Protein (test code = Total 6.0 6.4-8.4 Protein) [place] [address]-11-22 12:29:00 Test Item Value Reference Range Interpretation Comments Albumin Lvl (test code = Albumin Lvl) 3.1 3.5-5.0 [place] [address]-11-22 12:29:00 Test Item Value Reference Range Interpretation Comments ALT (test code = ALT) 207 See_Comment [Auto mated message] The system which ge nerated this result transmit jeremías reference range : <=65. The reference range was not used to interpr et this result as vernell l/abnormal. [place] 447990-11-22 12:29:00 Test Item Value Reference Range Interpretation Comments AST (test code = AST) 100 See_Comment [Auto mated message] The system which ge nerated this result transmit jeremías reference range : <=37. The reference range was not used to interpr et this result as vernell l/abnormal. [facility] [id number] 12:29:00 Test Item Value Reference Range Interpretation Comments Alk Phos (test code = Alk Phos) 133 39-136 [facility] [id number] 12:29:00 Test Item Value Reference Range Interpretation Comments Bili Total (test code = Bili Total) 1.1 0.2-1.[address] [facility] [id number] 12:29:00 Test Item Value Reference Range Interpretation Comments Bili Direct (test code 0.3 See_Comment [Aut omated message] The = Bili Direct) system which generated this result tra nsmitted reference range : <=0.3. The reference r daniel was not used to int erpret this result as vernell l/abnormal. [facility] [id number] 12:29:00 Test Item Value Reference Range Interpretation Comments Bili Indirect (test 0.8 See_Comment [Automa jeremías message] The code = Bili Indirect) system which generated this result tra nsmitted reference range : <=1.0. The reference r daniel was not used to int erpret this result as normal/abnormal . [facility] [id number] 12:29:00 Test Item Value Reference Range Interpretation Comments Globulin (test code = Globulin) 2.9 2.7-4.[address] [facility] [id number] 12:29:00 Test Item Value Reference Range Interpretation Comments A/G Ratio (test code = A/G Ratio) 1.1 1 0.7-1.[address] [facility] [id number] 12:29:00 Test Item Value Reference Range Interpretation Comments Glucose Lvl (test code = Glucose Lvl) 79 70-[address] [facility] [id number] 12:29:00 Test Item Value Reference Range Interpretation Comments BUN (test code = BUN) 5 7-[address] [facility] [id number] 12:29:00 Test Item Value Reference Range Interpretation Comments Creatinine Lvl (test code = Creatinine 0.42 0.50-1.40 Lvl) [facility]2020-11-22 12:29:00 Test Item Value Reference Range Interpretation Comments Sodium Lvl (test code = Sodium Lvl) 137 135-145 [place] 447990-11-22 12:29:00 Test Item Value Reference Range Interpretation Comments Potassium Lvl (test code = Potassium 3.9 3.5-5.1 Lvl) [place] 447990-11-22 12:29:00 Test Item Value Reference Range Interpretation Comments Chloride Lvl (test code = Chloride Lvl) 110 95-109 [place] 447990-11-22 12:29:00 Test Item Value Reference Range Interpretation Comments CO2 (test code = CO2) 23 24-32 [place] 447990-11-22 12:29:00 Test Item Value Reference Range Interpretation Comments Calcium Lvl (test code = Calcium Lvl) 8.5 8.5-10.5 [facility]2020-11-22 12:29:00 Test Item Value Reference Range Interpretation Comments AGAP (test code = AGAP) 7.9 10.0-20.0 [facility]2020-11-22 12:29:00 Test Item Value Reference Range Interpretation Comments eGFR (test code = eGFR) 136 [facility]SsvdxxqYDZWOKWTCN7678-96-93 12:29:00 Test Item Value Reference Range Interpretation Comments PT (test code = PT) 15.5 s 12.0-14.7 [place] 235960-11-22 12:29:00 Test Item Value Reference Range Interpretation Comments INR (test code = INR) 1.22 1 0.85-1.17 [place] [address]-11-22 12:29:00 Test Item Value Reference Range Interpretation Comments WBC (test code = WBC) 3.7 3.7-10.4 [place] 235960-11-22 12:29:00 Test Item Value Reference Range Interpretation Comments RBC (test code = RBC) 3.57 4.20-5.40 [place] 235960-11-22 12:29:00 Test Item Value Reference Range Interpretation Comments Hgb (test code = Hgb) 11.1 12.0-16.0 [place] 235960-11-22 12:29:00 Test Item Value Reference Range Interpretation Comments Hct (test code = Hct) 32.9 36.0-48.0 [facility] CenterNigyuwrTBRQTEJPAD1836-21-00 12:29:00 Test Item Value Reference Range Interpretation Comments MCV (test code = MCV) 92.0 80.0-98.0 [place] 235960-11-22 12:29:00 Test Item Value Reference Range Interpretation Comments MCH (test code = MCH) 30.9 pg 27.0-31.0 [place] 235960-11-22 12:29:00 Test Item Value Reference Range Interpretation Comments MCHC (test code = MCHC) 33.6 32.0-36.0 [facility] CenterKncggaaAJBNTUAYVY3568-23-22 12:29:00 Test Item Value Reference Range Interpretation Comments RDW (test code = RDW) 12.5 11.5-14.5 [facility] CenterAkcpqneEWFLSTXCRL3248-55-07 12:29:00 Test Item Value Reference Range Interpretation Comments Platelet (test code = Platelet) 165 133-450 [facility] CenterVrgkihzMUZFUNMZNT2729-44-24 12:29:00 Test Item Value Reference Range Interpretation Comments MPV (test code = MPV) 9.0 7.4-10.4 [facility] CenterPrvxkgaBSEHMABTMH3459-17-92 12:29:00 Test Item Value Reference Range Interpretation Comments Segs (test code = Segs) 48.2 45.0-75.0 [facility] CenterCnxbqenYCXVWIKRBX5111-80-97 12:29:00 Test Item Value Reference Range Interpretation Comments Lymphocytes (test code = Lymphocytes) 40.5 20.0-40.0 [place] 235[place]-11-22 12:29:00 Test Item Value Reference Range Interpretation Comments Monocytes (test code = Monocytes) 6.8 2.0-12.0 [place] [address]-11-22 12:29:00 Test Item Value Reference Range Interpretation Comments Eosinophils (test code = 3.5 See_Comment [A utomated message] The Eosinophils) system which ge nerated this result tra nsmitted reference range : <=4.0. The reference r daniel was not used to int erpret this result as normal/abnormal . [facility] CenterQcylnjoVKQEBWOJHJ6112-23-94 12:29:00 Test Item Value Reference Range Interpretation Comments Basophils (test code = 1.0 See_Comment [Aut omated message] The Basophils) system which ge nerated this result tra nsmitted reference range : <=1.0. The reference r daniel was not used to int erpret this result as normal/abnormal . [facility] HospitalPtojtsrMEOEVNPLMT0646-67-80 12:29:00 Test Item Value Reference Range Interpretation Comments Neutrophils # (test code = Neutrophils 1.8 1.5-8.1 #) [facility] HospitalTojpayyUWFUDVEEZZ2773-09-72 12:29:00 Test Item Value Reference Range Interpretation Comments Lymphocytes # (test code = Lymphocytes 1.5 1.0-5.5 #) [facility] H[id number] 12:29:00 Test Item Value Reference Range Interpretation Comments Monocytes # (test code 0.3 See_Comment [Aut omated message] The = Monocytes #) system which generated this result tra nsmitted reference range : <=0.8. The reference r daniel was not used to int erpret this result as normal/abnormal . [facility] HospitalQutvxvtKNFGDNFOWS7837-59-49 12:29:00 Test Item Value Reference Range Interpretation Comments Eosinophils # (test code 0.1 See_Comment [A utomated message] The = Eosinophils #) system whic h generated this result tra nsmitted reference range : <=0.5. The reference r daniel was not used to int erpret this result as normal/abnormal . [facility]2020-11-22 12:29:00 Test Item Value Reference Range Interpretation Comments Total Protein (test code = Total 6.0 6.4-8.4 Protein) [facility] [id number] 12:29:00 Test Item Value Reference Range Interpretation Comments Albumin Lvl (test code = Albumin Lvl) 3.1 3.5-5.0 [facility]2020-11-22 12:29:00 Test Item Value Reference Range Interpretation Comments ALT (test code = ALT) 207 See_Comment [Auto mated message] The system which ge nerated this result transmit jeremías reference range : <=65. The reference range was not used to interpr et this result as vernell l/abnormal. [facility]2020-11-22 12:29:00 Test Item Value Reference Range Interpretation Comments AST (test code = AST) 100 See_Comment [Auto mated message] The system which ge nerated this result transmit jeremías reference range : <=37. The reference range was not used to interpr et this result as vernell l/abnormal. [facility] [id number] 12:29:00 Test Item Value Reference Range Interpretation Comments Alk Phos (test code = Alk Phos) 133 39-136 [facility] [id number] 12:29:00 Test Item Value Reference Range Interpretation Comments Bili Total (test code = Bili Total) 1.1 0.2-1.[address] [facility] [id number] 12:29:00 Test Item Value Reference Range Interpretation Comments Bili Direct (test code 0.3 See_Comment [Aut omated message] The = Bili Direct) system which generated this result tra nsmitted reference range : <=0.3. The reference r daniel was not used to int erpret this result as vernell l/abnormal. [facility] [id number] 12:29:00 Test Item Value Reference Range Interpretation Comments Bili Indirect (test 0.8 See_Comment [Automa jeremías message] The code = Bili Indirect) system which generated this result tra nsmitted reference range : <=1.0. The reference r daniel was not used to int erpret this result as normal/abnormal . [facility] [id number] 12:29:00 Test Item Value Reference Range Interpretation Comments Globulin (test code = Globulin) 2.9 2.7-4.2 [facility] [id number] 12:29:00 Test Item Value Reference Range Interpretation Comments A/G Ratio (test code = A/G Ratio) 1.1 1 0.7-1.6 [facility] [id number] 12:29:00 Test Item Value Reference Range Interpretation Comments Glucose Lvl (test code = Glucose Lvl) 79 70-[address] [facility] [id number] 12:29:00 Test Item Value Reference Range Interpretation Comments BUN (test code = BUN) 5 7-22 [facility] [id number] 12:29:00 Test Item Value Reference Range Interpretation Comments Creatinine Lvl (test code = Creatinine 0.42 0.50-1.40 Lvl) [place] 447990-11-22 12:29:00 Test Item Value Reference Range Interpretation Comments Sodium Lvl (test code = Sodium Lvl) 137 135-145 [place] 447990-11-22 12:29:00 Test Item Value Reference Range Interpretation Comments Potassium Lvl (test code = Potassium 3.9 3.5-5.1 Lvl) [place] 447990-11-22 12:29:00 Test Item Value Reference Range Interpretation Comments Chloride Lvl (test code = Chloride Lvl) 110 95-109 [place] 447990-11-22 12:29:00 Test Item Value Reference Range Interpretation Comments CO2 (test code = CO2) 23 24-32 [place] 447990-11-22 12:29:00 Test Item Value Reference Range Interpretation Comments Calcium Lvl (test code = Calcium Lvl) 8.5 8.5-10.5 [place] 447990-11-22 12:29:00 Test Item Value Reference Range Interpretation Comments AGAP (test code = AGAP) 7.9 10.0-20.0 [place] 447990-11-22 12:29:00 Test Item Value Reference Range Interpretation Comments eGFR (test code = eGFR) 136 [place] 235960-11-22 12:29:00 Test Item Value Reference Range Interpretation Comments PT (test code = PT) 15.5 s 12.0-14.7 [place] [address]-11-22 12:29:00 Test Item Value Reference Range Interpretation Comments INR (test code = INR) 1.22 1 0.85-1.17 [place] 235960-11-22 12:29:00 Test Item Value Reference Range Interpretation Comments WBC (test code = WBC) 3.7 3.7-10.4 [place] [address]-11-22 12:29:00 Test Item Value Reference Range Interpretation Comments RBC (test code = RBC) 3.57 4.20-5.40 [place] [address]-11-22 12:29:00 Test Item Value Reference Range Interpretation Comments Hgb (test code = Hgb) 11.1 12.0-16.0 [place] [address]-11-22 12:29:00 Test Item Value Reference Range Interpretation Comments Hct (test code = Hct) 32.9 36.0-48.0 [place] 235960-11-22 12:29:00 Test Item Value Reference Range Interpretation Comments MCV (test code = MCV) 92.0 80.0-98.0 [facility]RivfrpwTQEVIUZLHX1604-46-97 12:29:00 Test Item Value Reference Range Interpretation Comments MCH (test code = MCH) 30.9 pg 27.0-31.0 [facility] CenterDliozviHVVXUVSWXA7742-59-89 12:29:00 Test Item Value Reference Range Interpretation Comments MCHC (test code = MCHC) 33.6 32.0-36.0 [facility] CenterCxuqhnlINBKZTQXCE6861-74-73 12:29:00 Test Item Value Reference Range Interpretation Comments RDW (test code = RDW) 12.5 11.5-14.5 [place] 235960-11-22 12:29:00 Test Item Value Reference Range Interpretation Comments Platelet (test code = Platelet) 165 133-450 [facility] CenterSjgpwjjPXJXYWFXZX3341-76-86 12:29:00 Test Item Value Reference Range Interpretation Comments MPV (test code = MPV) 9.0 7.4-10.4 [facility] CenterHjruotfSDMGTEEGSP0959-89-85 12:29:00 Test Item Value Reference Range Interpretation Comments Segs (test code = Segs) 48.2 45.0-75.0 [facility] CenterFfhisxrHPFZXAIBMY8959-82-55 12:29:00 Test Item Value Reference Range Interpretation Comments Lymphocytes (test code = Lymphocytes) 40.5 20.0-40.0 [facility] CenterZeqvnkvRYXBTLZGKN3794-73-36 12:29:00 Test Item Value Reference Range Interpretation Comments Monocytes (test code = Monocytes) 6.8 2.0-12.0 [place] 235960-11-22 12:29:00 Test Item Value Reference Range Interpretation Comments Eosinophils (test code = 3.5 See_Comment [A utomated message] The Eosinophils) system which ge nerated this result tra nsmitted reference range : <=4.0. The reference r daniel was not used to int erpret this result as normal/abnormal . [place] 235960-11-22 12:29:00 Test Item Value Reference Range Interpretation Comments Basophils (test code = 1.0 See_Comment [Aut omated message] The Basophils) system which ge nerated this result tra nsmitted reference range : <=1.0. The reference r daniel was not used to int erpret this result as normal/abnormal . [facility] HospitalPdghjdeSRQFWNFSUD5506-53-04 12:29:00 Test Item Value Reference Range Interpretation Comments Neutrophils # (test code = Neutrophils 1.8 1.5-8.1 #) [facility] CenterJkoypdbQSNEOVXLFA0489-82-74 12:29:00 Test Item Value Reference Range Interpretation Comments Lymphocytes # (test code = Lymphocytes 1.5 1.0-5.5 #) [place] [address]-11-22 12:29:00 Test Item Value Reference Range Interpretation Comments Monocytes # (test code 0.3 See_Comment [Aut omated message] The = Monocytes #) system which generated this result tra nsmitted reference range : <=0.8. The reference r daniel was not used to int erpret this result as normal/abnormal . [place] 235960-11-22 12:29:00 Test Item Value Reference Range Interpretation Comments Eosinophils # (test code 0.1 See_Comment [A utomated message] The = Eosinophils #) system whic h generated this result tra nsmitted reference range : <=0.5. The reference r daniel was not used to int erpret this result as normal/abnormal . [facility] [id number] 12:29:00 Test Item Value Reference Range Interpretation Comments Total Protein (test code = Total 6.0 6.4-8.4 Protein) [facility] [id number] 12:29:00 Test Item Value Reference Range Interpretation Comments Albumin Lvl (test code = Albumin Lvl) 3.1 3.5-5.[address] [facility] [id number] 12:29:00 Test Item Value Reference Range Interpretation Comments ALT (test code = ALT) 207 See_Comment [Auto mated message] The system which ge nerated this result transmit jeremías reference range : <=65. The reference range was not used to interpr et this result as vernell l/abnormal. [facility] [id number] 12:29:00 Test Item Value Reference Range Interpretation Comments AST (test code = AST) 100 See_Comment [Auto mated message] The system which ge nerated this result transmit jeremías reference range : <=37. The reference range was not used to interpr et this result as vernell l/abnormal. [facility] [id number] 12:29:00 Test Item Value Reference Range Interpretation Comments Alk Phos (test code = Alk Phos) 133 39-136 [place] 447990-11-22 12:29:00 Test Item Value Reference Range Interpretation Comments Bili Total (test code = Bili Total) 1.1 0.2-1.3 [place] [address]-11-22 12:29:00 Test Item Value Reference Range Interpretation Comments Bili Direct (test code 0.3 See_Comment [Aut omated message] The = Bili Direct) system which generated this result tra nsmitted reference range : <=0.3. The reference r daniel was not used to int erpret this result as vernell l/abnormal. [place] 447990-11-22 12:29:00 Test Item Value Reference Range Interpretation Comments Bili Indirect (test 0.8 See_Comment [Automa jeremías message] The code = Bili Indirect) system which generated this result tra nsmitted reference range : <=1.0. The reference r daniel was not used to int erpret this result as normal/abnormal . [facility]2020-11-22 12:29:00 Test Item Value Reference Range Interpretation Comments Globulin (test code = Globulin) 2.9 2.7-4.2 [place] [address]-11-22 12:29:00 Test Item Value Reference Range Interpretation Comments A/G Ratio (test code = A/G Ratio) 1.1 1 0.7-1.6 [place] 447990-11-22 12:29:00 Test Item Value Reference Range Interpretation Comments Glucose Lvl (test code = Glucose Lvl) 79 70-[address] [facility] [id number] 12:29:00 Test Item Value Reference Range Interpretation Comments BUN (test code = BUN) 5 7-22 [place] 447990-11-22 12:29:00 Test Item Value Reference Range Interpretation Comments Creatinine Lvl (test code = Creatinine 0.42 0.50-1.40 Lvl) [place] 447990-11-22 12:29:00 Test Item Value Reference Range Interpretation Comments Sodium Lvl (test code = Sodium Lvl) 137 135-145 [facility]2020-11-22 12:29:00 Test Item Value Reference Range Interpretation Comments Potassium Lvl (test code = Potassium 3.9 3.5-5.1 Lvl) [facility]2020-11-22 12:29:00 Test Item Value Reference Range Interpretation Comments Chloride Lvl (test code = Chloride Lvl) 110 95-109 [place] 447990-11-22 12:29:00 Test Item Value Reference Range Interpretation Comments CO2 (test code = CO2) 23 24-32 [place] 447990-11-22 12:29:00 Test Item Value Reference Range Interpretation Comments Calcium Lvl (test code = Calcium Lvl) 8.5 8.5-10.5 [facility]2020-11-22 12:29:00 Test Item Value Reference Range Interpretation Comments AGAP (test code = AGAP) 7.9 10.0-20.0 [facility]2020-11-22 12:29:00 Test Item Value Reference Range Interpretation Comments eGFR (test code = eGFR) 136 [facility] CenterXcalhkkHLQHNLFIDF4557-07-93 12:29:00 Test Item Value Reference Range Interpretation Comments PT (test code = PT) 15.5 s 12.0-14.7 [facility] CenterNkbjbcrYFPVMXGKQC7828-02-81 12:29:00 Test Item Value Reference Range Interpretation Comments INR (test code = INR) 1.22 1 0.85-1.17 [place] 235960-11-22 12:29:00 Test Item Value Reference Range Interpretation Comments WBC (test code = WBC) 3.7 3.7-10.4 [place] 235960-11-22 12:29:00 Test Item Value Reference Range Interpretation Comments RBC (test code = RBC) 3.57 4.20-5.40 [place] 235960-11-22 12:29:00 Test Item Value Reference Range Interpretation Comments Hgb (test code = Hgb) 11.1 12.0-16.0 [place] 235960-11-22 12:29:00 Test Item Value Reference Range Interpretation Comments Hct (test code = Hct) 32.9 36.0-48.0 [place] 235960-11-22 12:29:00 Test Item Value Reference Range Interpretation Comments MCV (test code = MCV) 92.0 80.0-98.0 [facility] CenterXplwlptYDUKOBHXQP2182-80-46 12:29:00 Test Item Value Reference Range Interpretation Comments MCH (test code = MCH) 30.9 pg 27.0-31.0 [facility] CenterJjfxrgjRUFSDEXGAZ4883-84-21 12:29:00 Test Item Value Reference Range Interpretation Comments MCHC (test code = MCHC) 33.6 32.0-36.0 [facility] CenterZcwpisaBHTYHJISIP9824-01-82 12:29:00 Test Item Value Reference Range Interpretation Comments RDW (test code = RDW) 12.5 11.5-14.5 [facility] CenterFchhenbBCOXQOLKFK0799-50-83 12:29:00 Test Item Value Reference Range Interpretation Comments Platelet (test code = Platelet) 165 133-450 [facility] CenterYugxnfbBANGCMLJPW1641-59-83 12:29:00 Test Item Value Reference Range Interpretation Comments MPV (test code = MPV) 9.0 7.4-10.4 [facility] CenterEoscgvxHADRXYWSFM3465-62-26 12:29:00 Test Item Value Reference Range Interpretation Comments Segs (test code = Segs) 48.2 45.0-75.0 [facility] CenterCzqnblfXIDGDTVWNF4191-30-91 12:29:00 Test Item Value Reference Range Interpretation Comments Lymphocytes (test code = Lymphocytes) 40.5 20.0-40.0 [facility] CenterPswbqmkBBMQBUPOIW7335-72-79 12:29:00 Test Item Value Reference Range Interpretation Comments Monocytes (test code = Monocytes) 6.8 2.0-12.0 [place] [address]-11-22 12:29:00 Test Item Value Reference Range Interpretation Comments Eosinophils (test code = 3.5 See_Comment [A utomated message] The Eosinophils) system which ge nerated this result tra nsmitted reference range : <=4.0. The reference r daniel was not used to int erpret this result as normal/abnormal . [place] 235960-11-22 12:29:00 Test Item Value Reference Range Interpretation Comments Basophils (test code = 1.0 See_Comment [Aut omated message] The Basophils) system which ge nerated this result tra nsmitted reference range : <=1.0. The reference r daniel was not used to int erpret this result as normal/abnormal . [place] [address]-11-22 12:29:00 Test Item Value Reference Range Interpretation Comments Neutrophils # (test code = Neutrophils 1.8 1.5-8.1 #) [place] [address]-11-22 12:29:00 Test Item Value Reference Range Interpretation Comments Lymphocytes # (test code = Lymphocytes 1.5 1.0-5.5 #) [place] [address]-11-22 12:29:00 Test Item Value Reference Range Interpretation Comments Monocytes # (test code 0.3 See_Comment [Aut omated message] The = Monocytes #) system which generated this result tra nsmitted reference range : <=0.8. The reference r daniel was not used to int erpret this result as normal/abnormal . [address]11-22 12:29:00 Test Item Value Reference Range Interpretation Comments Eosinophils # (test code 0.1 See_Comment [A utomated message] The = Eosinophils #) system whic h generated this result tra nsmitted reference range : <=0.5. The reference r daniel was not used to int erpret this result as normal/abnormal . [facility] [id number] 12:29:00 Test Item Value Reference Range Interpretation Comments Total Protein (test code = Total 6.0 6.4-8.4 Protein) [address]11-22 12:29:00 Test Item Value Reference Range Interpretation Comments Albumin Lvl (test code = Albumin Lvl) 3.1 3.5-5.0 [place] [address]-11-22 12:29:00 Test Item Value Reference Range Interpretation Comments ALT (test code = ALT) 207 See_Comment [Auto mated message] The system which ge nerated this result transmit jeremías reference range : <=65. The reference range was not used to interpr et this result as vernell l/abnormal. [facility] [id number] 12:29:00 Test Item Value Reference Range Interpretation Comments AST (test code = AST) 100 See_Comment [Auto mated message] The system which ge nerated this result transmit jeremías reference range : <=37. The reference range was not used to interpr et this result as vernell l/abnormal. [facility] [id number] 12:29:00 Test Item Value Reference Range Interpretation Comments Alk Phos (test code = Alk Phos) 133 39-136 [facility]2020-11-22 12:29:00 Test Item Value Reference Range Interpretation Comments Bili Total (test code = Bili Total) 1.1 0.2-1.3 [place] 447990-11-22 12:29:00 Test Item Value Reference Range Interpretation Comments Bili Direct (test code 0.3 See_Comment [Aut omated message] The = Bili Direct) system which generated this result tra nsmitted reference range : <=0.3. The reference r daniel was not used to int erpret this result as vernell l/abnormal. [facility] [id number] 12:29:00 Test Item Value Reference Range Interpretation Comments Bili Indirect (test 0.8 See_Comment [Automa jeremías message] The code = Bili Indirect) system which generated this result tra nsmitted reference range : <=1.0. The reference r daniel was not used to int erpret this result as normal/abnormal . [facility] [id number] 12:29:00 Test Item Value Reference Range Interpretation Comments Globulin (test code = Globulin) 2.9 2.7-4.[address] [facility] [id number] 12:29:00 Test Item Value Reference Range Interpretation Comments A/G Ratio (test code = A/G Ratio) 1.1 1 0.7-1.[address] [facility] [id number] 12:29:00 Test Item Value Reference Range Interpretation Comments Glucose Lvl (test code = Glucose Lvl) 79 70-99 [facility] [id number] 12:29:00 Test Item Value Reference Range Interpretation Comments BUN (test code = BUN) 5 7-22 [facility] [id number] 12:29:00 Test Item Value Reference Range Interpretation Comments Creatinine Lvl (test code = Creatinine 0.42 0.50-1.40 Lvl) [facility]2020-11-22 12:29:00 Test Item Value Reference Range Interpretation Comments Sodium Lvl (test code = Sodium Lvl) 137 135-145 [facility]2020-11-22 12:29:00 Test Item Value Reference Range Interpretation Comments Potassium Lvl (test code = Potassium 3.9 3.5-5.1 Lvl) [place] 447990-11-22 12:29:00 Test Item Value Reference Range Interpretation Comments Chloride Lvl (test code = Chloride Lvl) 110 95-109 [place] 447990-11-22 12:29:00 Test Item Value Reference Range Interpretation Comments CO2 (test code = CO2) 23 24-32 [place] 447990-11-22 12:29:00 Test Item Value Reference Range Interpretation Comments Calcium Lvl (test code = Calcium Lvl) 8.5 8.5-10.5 [place] 447990-11-22 12:29:00 Test Item Value Reference Range Interpretation Comments AGAP (test code = AGAP) 7.9 10.0-20.0 [place] 447990-11-22 12:29:00 Test Item Value Reference Range Interpretation Comments eGFR (test code = eGFR) 136 [place] 235960-11-22 12:29:00 Test Item Value Reference Range Interpretation Comments PT (test code = PT) 15.5 s 12.0-14.7 [place] 235960-11-22 12:29:00 Test Item Value Reference Range Interpretation Comments INR (test code = INR) 1.22 1 0.85-1.17 [place] [address]-11-22 12:29:00 Test Item Value Reference Range Interpretation Comments WBC (test code = WBC) 3.7 3.7-10.4 [place] [address]-11-22 12:29:00 Test Item Value Reference Range Interpretation Comments RBC (test code = RBC) 3.57 4.20-5.40 [place] [address]-11-22 12:29:00 Test Item Value Reference Range Interpretation Comments Hgb (test code = Hgb) 11.1 12.0-16.0 [place] [address]-11-22 12:29:00 Test Item Value Reference Range Interpretation Comments Hct (test code = Hct) 32.9 36.0-48.0 [place] [address]-11-22 12:29:00 Test Item Value Reference Range Interpretation Comments MCV (test code = MCV) 92.0 80.0-98.0 [facility] CenterAjaekjeUGAMPCNUTP9437-27-49 12:29:00 Test Item Value Reference Range Interpretation Comments MCH (test code = MCH) 30.9 pg 27.0-31.0 [facility] CenterVsirnqhLCPAXZMNXQ3170-34-33 12:29:00 Test Item Value Reference Range Interpretation Comments MCHC (test code = MCHC) 33.6 32.0-36.0 [facility] CenterTzlrnezBSBKCOQYRE0534-94-30 12:29:00 Test Item Value Reference Range Interpretation Comments RDW (test code = RDW) 12.5 11.5-14.5 [facility] CenterBcwfmevDQRXWTRPWM8597-38-11 12:29:00 Test Item Value Reference Range Interpretation Comments Platelet (test code = Platelet) 165 133-450 [facility] CenterUopiqajHIGSAULRAT0029-33-39 12:29:00 Test Item Value Reference Range Interpretation Comments MPV (test code = MPV) 9.0 7.4-10.4 [facility] CenterVaqmynjTMENOWNRUF7111-80-49 12:29:00 Test Item Value Reference Range Interpretation Comments Segs (test code = Segs) 48.2 45.0-75.0 [facility] CenterBtwaczmTHWOVBFJXI4411-96-25 12:29:00 Test Item Value Reference Range Interpretation Comments Lymphocytes (test code = Lymphocytes) 40.5 20.0-40.0 [facility] CenterPwexjcsJAQODODCTZ8935-20-93 12:29:00 Test Item Value Reference Range Interpretation Comments Monocytes (test code = Monocytes) 6.8 2.0-12.0 [facility] CenterRvganheKETQMBBQNL6464-41-09 12:29:00 Test Item Value Reference Range Interpretation Comments Eosinophils (test code = 3.5 See_Comment [A utomated message] The Eosinophils) system which ge nerated this result tra nsmitted reference range : <=4.0. The reference r daniel was not used to int erpret this result as normal/abnormal . [facility] CenterJvrqbdkSQQINCMSWN0797-06-87 12:29:00 Test Item Value Reference Range Interpretation Comments Basophils (test code = 1.0 See_Comment [Aut omated message] The Basophils) system which ge nerated this result tra nsmitted reference range : <=1.0. The reference r daniel was not used to int erpret this result as normal/abnormal . [place] [address]-11-22 12:29:00 Test Item Value Reference Range Interpretation Comments Neutrophils # (test code = Neutrophils 1.8 1.5-8.1 #) [place] [address]-11-22 12:29:00 Test Item Value Reference Range Interpretation Comments Lymphocytes # (test code = Lymphocytes 1.5 1.0-5.5 #) [place] [address]-11-22 12:29:00 Test Item Value Reference Range Interpretation Comments Monocytes # (test code 0.3 See_Comment [Aut omated message] The = Monocytes #) system which generated this result tra nsmitted reference range : <=0.8. The reference r daniel was not used to int erpret this result as normal/abnormal . [place] [address]-11-22 12:29:00 Test Item Value Reference Range Interpretation Comments Eosinophils # (test code 0.1 See_Comment [A utomated message] The = Eosinophils #) system whic h generated this result tra nsmitted reference range : <=0.5. The reference r daniel was not used to int erpret this result as normal/abnormal . [facility] [id number] 12:29:00 Test Item Value Reference Range Interpretation Comments Total Protein (test code = Total 6.0 6.4-8.4 Protein) [place] [address]-11-22 12:29:00 Test Item Value Reference Range Interpretation Comments Albumin Lvl (test code = Albumin Lvl) 3.1 3.5-5.0 [place] [address]-11-22 12:29:00 Test Item Value Reference Range Interpretation Comments ALT (test code = ALT) 207 See_Comment [Auto mated message] The system which ge nerated this result transmit jeremías reference range : <=65. The reference range was not used to interpr et this result as vernell l/abnormal. [facility] [id number] 12:29:00 Test Item Value Reference Range Interpretation Comments AST (test code = AST) 100 See_Comment [Auto mated message] The system which ge nerated this result transmit jeremías reference range : <=37. The reference range was not used to interpr et this result as vernell l/abnormal. [facility] [id number] 12:29:00 Test Item Value Reference Range Interpretation Comments Alk Phos (test code = Alk Phos) 133 39-136 [facility]2020-11-22 12:29:00 Test Item Value Reference Range Interpretation Comments Bili Total (test code = Bili Total) 1.1 0.2-1.3 [facility]2020-11-22 12:29:00 Test Item Value Reference Range Interpretation Comments Bili Direct (test code 0.3 See_Comment [Aut omated message] The = Bili Direct) system which generated this result tra nsmitted reference range : <=0.3. The reference r daniel was not used to int erpret this result as vernell l/abnormal. [facility]2020-11-22 12:29:00 Test Item Value Reference Range Interpretation Comments Bili Indirect (test 0.8 See_Comment [Automa jeremías message] The code = Bili Indirect) system which generated this result tra nsmitted reference range : <=1.0. The reference r daniel was not used to int erpret this result as normal/abnormal . [facility]2020-11-22 12:29:00 Test Item Value Reference Range Interpretation Comments Globulin (test code = Globulin) 2.9 2.7-4.2 [place] 447990-11-22 12:29:00 Test Item Value Reference Range Interpretation Comments A/G Ratio (test code = A/G Ratio) 1.1 1 0.7-1.6 [place] 447990-11-22 12:29:00 Test Item Value Reference Range Interpretation Comments Glucose Lvl (test code = Glucose Lvl) 79 70-99 [facility]2020-11-22 12:29:00 Test Item Value Reference Range Interpretation Comments BUN (test code = BUN) 5 7-22 [place] 447990-11-22 12:29:00 Test Item Value Reference Range Interpretation Comments Creatinine Lvl (test code = Creatinine 0.42 0.50-1.40 Lvl) [facility]2020-11-22 12:29:00 Test Item Value Reference Range Interpretation Comments Sodium Lvl (test code = Sodium Lvl) 137 135-145 [place] 447990-11-22 12:29:00 Test Item Value Reference Range Interpretation Comments Potassium Lvl (test code = Potassium 3.9 3.5-5.1 Lvl) [facility]2020-11-22 12:29:00 Test Item Value Reference Range Interpretation Comments Chloride Lvl (test code = Chloride Lvl) 110 95-109 [place] 447990-11-22 12:29:00 Test Item Value Reference Range Interpretation Comments CO2 (test code = CO2) 23 24-32 [place] 447990-11-22 12:29:00 Test Item Value Reference Range Interpretation Comments Calcium Lvl (test code = Calcium Lvl) 8.5 8.5-10.5 [place] 447990-11-22 12:29:00 Test Item Value Reference Range Interpretation Comments AGAP (test code = AGAP) 7.9 10.0-20.0 [place] 447990-11-22 12:29:00 Test Item Value Reference Range Interpretation Comments eGFR (test code = eGFR) 136 [facility] CenterOaghjwbPCVZEGMJHQ1312-38-33 12:29:00 Test Item Value Reference Range Interpretation Comments PT (test code = PT) 15.5 s 12.0-14.7 [place] [address]-11-22 12:29:00 Test Item Value Reference Range Interpretation Comments INR (test code = INR) 1.22 1 0.85-1.17 [place] 235960-11-22 12:29:00 Test Item Value Reference Range Interpretation Comments WBC (test code = WBC) 3.7 3.7-10.4 [place] 235960-11-22 12:29:00 Test Item Value Reference Range Interpretation Comments RBC (test code = RBC) 3.57 4.20-5.40 [place] [address]-11-22 12:29:00 Test Item Value Reference Range Interpretation Comments Hgb (test code = Hgb) 11.1 12.0-16.0 [place] [address]-11-22 12:29:00 Test Item Value Reference Range Interpretation Comments Hct (test code = Hct) 32.9 36.0-48.0 [place] [address]-11-22 12:29:00 Test Item Value Reference Range Interpretation Comments MCV (test code = MCV) 92.0 80.0-98.0 [place] [address]-11-22 12:29:00 Test Item Value Reference Range Interpretation Comments MCH (test code = MCH) 30.9 pg 27.0-31.0 [facility]uhxwhJJJGCZJVED9726-51-84 12:29:00 Test Item Value Reference Range Interpretation Comments MCHC (test code = MCHC) 33.6 32.0-36.0 [facility] CenterDugzwwuLJCUSMTKRP9192-20-90 12:29:00 Test Item Value Reference Range Interpretation Comments RDW (test code = RDW) 12.5 11.5-14.5 [facility] CenterHlvydqcEYAVSODVSF1251-80-30 12:29:00 Test Item Value Reference Range Interpretation Comments Platelet (test code = Platelet) 165 133-450 [facility] CenterKcosoqqMYPQBHOTNB2539-22-70 12:29:00 Test Item Value Reference Range Interpretation Comments MPV (test code = MPV) 9.0 7.4-10.4 [facility] CenterFwnhvnxRBPQMJMZWS4221-48-68 12:29:00 Test Item Value Reference Range Interpretation Comments Segs (test code = Segs) 48.2 45.0-75.0 [facility] CenterMizbpdaZHCARABRQL3635-88-98 12:29:00 Test Item Value Reference Range Interpretation Comments Lymphocytes (test code = Lymphocytes) 40.5 20.0-40.0 [facility] CenterMmdrfjvRFJHOMVKPK7186-24-39 12:29:00 Test Item Value Reference Range Interpretation Comments Monocytes (test code = Monocytes) 6.8 2.0-12.0 [facility] CenterQboxeacGVUUDVJIJB4922-95-49 12:29:00 Test Item Value Reference Range Interpretation Comments Eosinophils (test code = 3.5 See_Comment [A utomated message] The Eosinophils) system which ge nerated this result tra nsmitted reference range : <=4.0. The reference r daniel was not used to int erpret this result as normal/abnormal . [facility] CenterXczcyylMZAUBEERRX2139-53-84 12:29:00 Test Item Value Reference Range Interpretation Comments Basophils (test code = 1.0 See_Comment [Aut omated message] The Basophils) system which ge nerated this result tra nsmitted reference range : <=1.0. The reference r daniel was not used to int erpret this result as normal/abnormal . [facility] CenterVvpeoqmFBFQJYONWX7059-72-57 12:29:00 Test Item Value Reference Range Interpretation Comments Neutrophils # (test code = Neutrophils 1.8 1.5-8.1 #) [facility] CenterRbhxsppQWFXAYDSLT6812-85-23 12:29:00 Test Item Value Reference Range Interpretation Comments Lymphocytes # (test code = Lymphocytes 1.5 1.0-5.5 #) [place] 235960-11-22 12:29:00 Test Item Value Reference Range Interpretation Comments Monocytes # (test code 0.3 See_Comment [Aut omated message] The = Monocytes #) system which generated this result tra nsmitted reference range : <=0.8. The reference r daniel was not used to int erpret this result as normal/abnormal . [place] 235960-11-22 12:29:00 Test Item Value Reference Range Interpretation Comments Eosinophils # (test code 0.1 See_Comment [A utomated message] The = Eosinophils #) system whic h generated this result tra nsmitted reference range : <=0.5. The reference r daniel was not used to int erpret this result as normal/abnormal . [facility] [id number] 12:29:00 Test Item Value Reference Range Interpretation Comments Total Protein (test code = Total 6.0 6.4-8.4 Protein) [facility] [id number] 12:29:00 Test Item Value Reference Range Interpretation Comments Albumin Lvl (test code = Albumin Lvl) 3.1 3.5-5.0 [facility] [id number] 12:29:00 Test Item Value Reference Range Interpretation Comments ALT (test code = ALT) 207 See_Comment [Auto mated message] The system which ge nerated this result transmit jeremías reference range : <=65. The reference range was not used to interpr et this result as vernell l/abnormal. [facility] [employer] [id number] 12:29:00 Test Item Value Reference Range Interpretation Comments AST (test code = AST) 100 See_Comment [Auto mated message] The system which ge nerated this result transmit jeremías reference range : <=37. The reference range was not used to interpr et this result as vernell l/abnormal. [facility] [employer] [id number] 12:29:00 Test Item Value Reference Range Interpretation Comments Alk Phos (test code = Alk Phos) 133 39-136 [place] 447990-11-22 12:29:00 Test Item Value Reference Range Interpretation Comments Bili Total (test code = Bili Total) 1.1 0.2-1.3 [place] 447990-11-22 12:29:00 Test Item Value Reference Range Interpretation Comments Bili Direct (test code 0.3 See_Comment [Aut omated message] The = Bili Direct) system which generated this result tra nsmitted reference range : <=0.3. The reference r daniel was not used to int erpret this result as vernell l/abnormal. [place] 447990-11-22 12:29:00 Test Item Value Reference Range Interpretation Comments Bili Indirect (test 0.8 See_Comment [Automa jeremías message] The code = Bili Indirect) system which generated this result tra nsmitted reference range : <=1.0. The reference r daniel was not used to int erpret this result as normal/abnormal . [facility]2020-11-22 12:29:00 Test Item Value Reference Range Interpretation Comments Globulin (test code = Globulin) 2.9 2.7-4.2 [place] 447990-11-22 12:29:00 Test Item Value Reference Range Interpretation Comments A/G Ratio (test code = A/G Ratio) 1.1 1 0.7-1.6 [place] 447990-11-22 12:29:00 Test Item Value Reference Range Interpretation Comments Glucose Lvl (test code = Glucose Lvl) 79 70-99 [facility]2020-11-22 12:29:00 Test Item Value Reference Range Interpretation Comments BUN (test code = BUN) 5 7-22 [place] 447990-11-22 12:29:00 Test Item Value Reference Range Interpretation Comments Creatinine Lvl (test code = Creatinine 0.42 0.50-1.40 Lvl) [facility]2020-11-22 12:29:00 Test Item Value Reference Range Interpretation Comments Sodium Lvl (test code = Sodium Lvl) 137 135-145 [place] 447990-11-22 12:29:00 Test Item Value Reference Range Interpretation Comments Potassium Lvl (test code = Potassium 3.9 3.5-5.1 Lvl) [place] [address]-11-22 12:29:00 Test Item Value Reference Range Interpretation Comments Chloride Lvl (test code = Chloride Lvl) 110 95-109 [place] 447990-11-22 12:29:00 Test Item Value Reference Range Interpretation Comments CO2 (test code = CO2) 23 24-32 [place] [address]-11-22 12:29:00 Test Item Value Reference Range Interpretation Comments Calcium Lvl (test code = Calcium Lvl) 8.5 8.5-10.5 [place] 447990-11-22 12:29:00 Test Item Value Reference Range Interpretation Comments AGAP (test code = AGAP) 7.9 10.0-20.0 [place] 447990-11-22 12:29:00 Test Item Value Reference Range Interpretation Comments eGFR (test code = eGFR) 136 [place] 235960-11-22 12:29:00 Test Item Value Reference Range Interpretation Comments PT (test code = PT) 15.5 s 12.0-14.7 [place] 235960-11-22 12:29:00 Test Item Value Reference Range Interpretation Comments INR (test code = INR) 1.22 1 0.85-1.17 [place] [address]-11-22 12:29:00 Test Item Value Reference Range Interpretation Comments WBC (test code = WBC) 3.7 3.7-10.4 [place] [address]-11-22 12:29:00 Test Item Value Reference Range Interpretation Comments RBC (test code = RBC) 3.57 4.20-5.40 [place] [address]-11-22 12:29:00 Test Item Value Reference Range Interpretation Comments Hgb (test code = Hgb) 11.1 12.0-16.0 [place] [address]-11-22 12:29:00 Test Item Value Reference Range Interpretation Comments Hct (test code = Hct) 32.9 36.0-48.0 [place] 235960-11-22 12:29:00 Test Item Value Reference Range Interpretation Comments MCV (test code = MCV) 92.0 80.0-98.0 [place] [address]-11-22 12:29:00 Test Item Value Reference Range Interpretation Comments MCH (test code = MCH) 30.9 pg 27.0-31.0 [facility]KwdxyctBAXCUDMUUQ6377-73-13 12:29:00 Test Item Value Reference Range Interpretation Comments MCHC (test code = MCHC) 33.6 32.0-36.0 [facility] CenterFpkslkjJPULZLNYZG4799-13-18 12:29:00 Test Item Value Reference Range Interpretation Comments RDW (test code = RDW) 12.5 11.5-14.5 [facility] CenterDxudykzHFUEEMYEDM1202-07-25 12:29:00 Test Item Value Reference Range Interpretation Comments Platelet (test code = Platelet) 165 133-450 [facility] CenterNorwxixWFGPAGRKST5702-28-96 12:29:00 Test Item Value Reference Range Interpretation Comments MPV (test code = MPV) 9.0 7.4-10.4 [facility] CenterGrifqeeGWOSLBFGFZ1527-38-38 12:29:00 Test Item Value Reference Range Interpretation Comments Segs (test code = Segs) 48.2 45.0-75.0 [facility] CenterJlynicxGVYXWECAAO3573-95-17 12:29:00 Test Item Value Reference Range Interpretation Comments Lymphocytes (test code = Lymphocytes) 40.5 20.0-40.0 [facility] CenterUjgtbjaORVNXLZOAA5189-45-37 12:29:00 Test Item Value Reference Range Interpretation Comments Monocytes (test code = Monocytes) 6.8 2.0-12.0 [facility] CenterRdeacxtUGZSSDHQFI4629-72-88 12:29:00 Test Item Value Reference Range Interpretation Comments Eosinophils (test code = 3.5 See_Comment [A utomated message] The Eosinophils) system which ge nerated this result tra nsmitted reference range : <=4.0. The reference r daniel was not used to int erpret this result as normal/abnormal . [facility] CenterBfbhjqcPJLMUZQDLU5737-56-26 12:29:00 Test Item Value Reference Range Interpretation Comments Basophils (test code = 1.0 See_Comment [Aut omated message] The Basophils) system which ge nerated this result tra nsmitted reference range : <=1.0. The reference r daniel was not used to int erpret this result as normal/abnormal . [facility] CenterWsnysvlPAFBNJOXIL5802-27-16 12:29:00 Test Item Value Reference Range Interpretation Comments Neutrophils # (test code = Neutrophils 1.8 1.5-8.1 #) [place] [address]-11-22 12:29:00 Test Item Value Reference Range Interpretation Comments Lymphocytes # (test code = Lymphocytes 1.5 1.0-5.5 #) [place] [address]-11-22 12:29:00 Test Item Value Reference Range Interpretation Comments Monocytes # (test code 0.3 See_Comment [Aut omated message] The = Monocytes #) system which generated this result tra nsmitted reference range : <=0.8. The reference r daniel was not used to int erpret this result as normal/abnormal . [place] [address]-11-22 12:29:00 Test Item Value Reference Range Interpretation Comments Eosinophils # (test code 0.1 See_Comment [A utomated message] The = Eosinophils #) system whic h generated this result tra nsmitted reference range : <=0.5. The reference r daniel was not used to int erpret this result as normal/abnormal . [facility] [id number] 12:29:00 Test Item Value Reference Range Interpretation Comments Total Protein (test code = Total 6.0 6.4-8.4 Protein) [address]11-22 12:29:00 Test Item Value Reference Range Interpretation Comments Albumin Lvl (test code = Albumin Lvl) 3.1 3.5-5.0 [place] [address]-11-22 12:29:00 Test Item Value Reference Range Interpretation Comments ALT (test code = ALT) 207 See_Comment [Auto mated message] The system which ge nerated this result transmit jeremías reference range : <=65. The reference range was not used to interpr et this result as vernell l/abnormal. [facility] [id number] 12:29:00 Test Item Value Reference Range Interpretation Comments AST (test code = AST) 100 See_Comment [Auto mated message] The system which ge nerated this result transmit jeremías reference range : <=37. The reference range was not used to interpr et this result as vernell l/abnormal. [facility] [id number] 12:29:00 Test Item Value Reference Range Interpretation Comments Alk Phos (test code = Alk Phos) 133 39-[address] [facility] [id number] 12:29:00 Test Item Value Reference Range Interpretation Comments Bili Total (test code = Bili Total) 1.1 0.2-1.3 [place] 447990-11-22 12:29:00 Test Item Value Reference Range Interpretation Comments Bili Direct (test code 0.3 See_Comment [Aut omated message] The = Bili Direct) system which generated this result tra nsmitted reference range : <=0.3. The reference r daniel was not used to int erpret this result as vernell l/abnormal. [place] 447990-11-22 12:29:00 Test Item Value Reference Range Interpretation Comments Bili Indirect (test 0.8 See_Comment [Automa jeremías message] The code = Bili Indirect) system which generated this result tra nsmitted reference range : <=1.0. The reference r daniel was not used to int erpret this result as normal/abnormal . [place] 447990-11-22 12:29:00 Test Item Value Reference Range Interpretation Comments Globulin (test code = Globulin) 2.9 2.7-4.2 [place] 447990-11-22 12:29:00 Test Item Value Reference Range Interpretation Comments A/G Ratio (test code = A/G Ratio) 1.1 1 0.7-1.6 [place] 447990-11-22 12:29:00 Test Item Value Reference Range Interpretation Comments Glucose Lvl (test code = Glucose Lvl) 79 70-99 [place] 447990-11-22 12:29:00 Test Item Value Reference Range Interpretation Comments BUN (test code = BUN) 5 7-22 [place] 447990-11-22 12:29:00 Test Item Value Reference Range Interpretation Comments Creatinine Lvl (test code = Creatinine 0.42 0.50-1.40 Lvl) [place] 447990-11-22 12:29:00 Test Item Value Reference Range Interpretation Comments Sodium Lvl (test code = Sodium Lvl) 137 135-145 [facility]2020-11-22 12:29:00 Test Item Value Reference Range Interpretation Comments Potassium Lvl (test code = Potassium 3.9 3.5-5.1 Lvl) [place] 447990-11-22 12:29:00 Test Item Value Reference Range Interpretation Comments Chloride Lvl (test code = Chloride Lvl) 110 95-109 [facility]2020-11-22 12:29:00 Test Item Value Reference Range Interpretation Comments CO2 (test code = CO2) 23 24-32 [facility] [id number] 12:29:00 Test Item Value Reference Range Interpretation Comments Calcium Lvl (test code = Calcium Lvl) 8.5 8.5-10.5 [facility]2020-11-22 12:29:00 Test Item Value Reference Range Interpretation Comments AGAP (test code = AGAP) 7.9 10.0-20.0 [facility]2020-11-22 12:29:00 Test Item Value Reference Range Interpretation Comments eGFR (test code = eGFR) 136 [facility]RhxmmeqVVWEKMBBRU7256-61-94 12:29:00 Test Item Value Reference Range Interpretation Comments PT (test code = PT) 15.5 s 12.0-14.7 [facility] CenterJhbibggSXDYDCTKBE5058-21-82 12:29:00 Test Item Value Reference Range Interpretation Comments INR (test code = INR) 1.22 1 0.85-1.17 [place] 235960-11-22 12:29:00 Test Item Value Reference Range Interpretation Comments WBC (test code = WBC) 3.7 3.7-10.4 [facility] CenterMkmtwpiRQIZCAPXGU1701-39-13 12:29:00 Test Item Value Reference Range Interpretation Comments RBC (test code = RBC) 3.57 4.20-5.40 [facility] CenterDaphkjvOBNHWJZGCY2728-78-47 12:29:00 Test Item Value Reference Range Interpretation Comments Hgb (test code = Hgb) 11.1 12.0-16.0 [place] 235960-11-22 12:29:00 Test Item Value Reference Range Interpretation Comments Hct (test code = Hct) 32.9 36.0-48.0 [place] 235960-11-22 12:29:00 Test Item Value Reference Range Interpretation Comments MCV (test code = MCV) 92.0 80.0-98.0 [place] 235960-11-22 12:29:00 Test Item Value Reference Range Interpretation Comments MCH (test code = MCH) 30.9 pg 27.0-31.0 [facility] CenterEkhedgbXFSCEMGYED4524-45-05 12:29:00 Test Item Value Reference Range Interpretation Comments MCHC (test code = MCHC) 33.6 32.0-36.0 [facility] CenterXagftqaWBEOLWNKCA8842-03-29 12:29:00 Test Item Value Reference Range Interpretation Comments RDW (test code = RDW) 12.5 11.5-14.5 [facility] CenterYuqfdonPFGXDHWOGQ5761-31-06 12:29:00 Test Item Value Reference Range Interpretation Comments Platelet (test code = Platelet) 165 133-450 [facility] CenterFvebnojFNNTGASJKT5025-94-77 12:29:00 Test Item Value Reference Range Interpretation Comments MPV (test code = MPV) 9.0 7.4-10.4 [facility] CenterKhzcptkSYGDDLVGSG6302-82-85 12:29:00 Test Item Value Reference Range Interpretation Comments Segs (test code = Segs) 48.2 45.0-75.0 [facility] CenterYmncxypDYMRTMTSZK9273-13-80 12:29:00 Test Item Value Reference Range Interpretation Comments Lymphocytes (test code = Lymphocytes) 40.5 20.0-40.0 [facility] CenterIwfjwlfPYEESCQZWL6201-53-55 12:29:00 Test Item Value Reference Range Interpretation Comments Monocytes (test code = Monocytes) 6.8 2.0-12.0 [facility] CenterFfduhrjUJYVMQEXAU6662-01-84 12:29:00 Test Item Value Reference Range Interpretation Comments Eosinophils (test code = 3.5 See_Comment [A utomated message] The Eosinophils) system which ge nerated this result tra nsmitted reference range : <=4.0. The reference r daniel was not used to int erpret this result as normal/abnormal . [facility] CenterZxsqygvSEHNCDECDQ4888-24-81 12:29:00 Test Item Value Reference Range Interpretation Comments Basophils (test code = 1.0 See_Comment [Aut omated message] The Basophils) system which ge nerated this result tra nsmitted reference range : <=1.0. The reference r daniel was not used to int erpret this result as normal/abnormal . [facility] CenterOopglprULUZQVKGST6553-71-04 12:29:00 Test Item Value Reference Range Interpretation Comments Neutrophils # (test code = Neutrophils 1.8 1.5-8.1 #) [facility] CenterPcpqiunTRFXTURFPV3801-27-37 12:29:00 Test Item Value Reference Range Interpretation Comments Lymphocytes # (test code = Lymphocytes 1.5 1.0-5.5 #) [facility]KlegcrlRYOXZSJBLF4023-20-05 12:29:00 Test Item Value Reference Range Interpretation Comments Monocytes # (test code 0.3 See_Comment [Aut omated message] The = Monocytes #) system which generated this result tra nsmitted reference range : <=0.8. The reference r daniel was not used to int erpret this result as normal/abnormal . [facility] HospitalFqxgpmpXHTZHFJKQI8550-70-80 12:29:00 Test Item Value Reference Range Interpretation Comments Eosinophils # (test code 0.1 See_Comment [A utomated message] The = Eosinophils #) system whic h generated this result tra nsmitted reference range : <=0.5. The reference r daniel was not used to int erpret this result as normal/abnormal . [facility]2020-11-22 12:29:00 Test Item Value Reference Range Interpretation Comments Total Protein (test code = Total 6.0 6.4-8.4 Protein) [facility]2020-11-22 12:29:00 Test Item Value Reference Range Interpretation Comments Albumin Lvl (test code = Albumin Lvl) 3.1 3.5-5.0 [facility]2020-11-22 12:29:00 Test Item Value Reference Range Interpretation Comments ALT (test code = ALT) 207 See_Comment [Auto mated message] The system which ge nerated this result transmit jeremías reference range : <=65. The reference range was not used to interpr et this result as vernell l/abnormal. [facility]2020-11-22 12:29:00 Test Item Value Reference Range Interpretation Comments AST (test code = AST) 100 See_Comment [Auto mated message] The system which ge nerated this result transmit jeremías reference range : <=37. The reference range was not used to interpr et this result as vernell l/abnormal. [facility]2020-11-22 12:29:00 Test Item Value Reference Range Interpretation Comments Alk Phos (test code = Alk Phos) 133 39-136 [facility] [employer] [id number] 12:29:00 Test Item Value Reference Range Interpretation Comments Bili Total (test code = Bili Total) 1.1 0.2-1.3 [place] 447990-11-22 12:29:00 Test Item Value Reference Range Interpretation Comments Bili Direct (test code 0.3 See_Comment [Aut omated message] The = Bili Direct) system which generated this result tra nsmitted reference range : <=0.3. The reference r daniel was not used to int erpret this result as vernell l/abnormal. [place] 447990-11-22 12:29:00 Test Item Value Reference Range Interpretation Comments Bili Indirect (test 0.8 See_Comment [Automa jeremías message] The code = Bili Indirect) system which generated this result tra nsmitted reference range : <=1.0. The reference r daniel was not used to int erpret this result as normal/abnormal . [place] 447990-11-22 12:29:00 Test Item Value Reference Range Interpretation Comments Globulin (test code = Globulin) 2.9 2.7-4.2 [place] 447990-11-22 12:29:00 Test Item Value Reference Range Interpretation Comments A/G Ratio (test code = A/G Ratio) 1.1 1 0.7-1.6 [place] [address]-11-22 12:29:00 Test Item Value Reference Range Interpretation Comments Glucose Lvl (test code = Glucose Lvl) 79 70-99 [facility]2020-11-22 12:29:00 Test Item Value Reference Range Interpretation Comments BUN (test code = BUN) 5 7-22 [place] 447990-11-22 12:29:00 Test Item Value Reference Range Interpretation Comments Creatinine Lvl (test code = Creatinine 0.42 0.50-1.40 Lvl) [place] [address]-11-22 12:29:00 Test Item Value Reference Range Interpretation Comments Sodium Lvl (test code = Sodium Lvl) 137 135-[address] [facility] [id number] 12:29:00 Test Item Value Reference Range Interpretation Comments Potassium Lvl (test code = Potassium 3.9 3.5-5.1 Lvl) [place] 447990-11-22 12:29:00 Test Item Value Reference Range Interpretation Comments Chloride Lvl (test code = Chloride Lvl) 110 95-[address] [facility] [id number] 12:29:00 Test Item Value Reference Range Interpretation Comments CO2 (test code = CO2) 23 24-[address] [facility] [id number] 12:29:00 Test Item Value Reference Range Interpretation Comments Calcium Lvl (test code = Calcium Lvl) 8.5 8.5-10.5 [facility]2020-11-22 12:29:00 Test Item Value Reference Range Interpretation Comments AGAP (test code = AGAP) 7.9 10.0-20.0 [facility]2020-11-22 12:29:00 Test Item Value Reference Range Interpretation Comments eGFR (test code = eGFR) 136 [facility]XnjehpeWUPWYVZLYH0051-99-20 12:29:00 Test Item Value Reference Range Interpretation Comments PT (test code = PT) 15.5 s 12.0-14.7 [facility] CenterMlkfdbyJZWZERPCFT8366-10-45 12:29:00 Test Item Value Reference Range Interpretation Comments INR (test code = INR) 1.22 1 0.85-1.17 [place] 235960-11-22 12:29:00 Test Item Value Reference Range Interpretation Comments WBC (test code = WBC) 3.7 3.7-10.4 [place] 235960-11-22 12:29:00 Test Item Value Reference Range Interpretation Comments RBC (test code = RBC) 3.57 4.20-5.40 [facility] CenterZbdpuvsZYLMGXEDFY3546-38-30 12:29:00 Test Item Value Reference Range Interpretation Comments Hgb (test code = Hgb) 11.1 12.0-16.0 [place] 235960-11-22 12:29:00 Test Item Value Reference Range Interpretation Comments Hct (test code = Hct) 32.9 36.0-48.0 [place] 235960-11-22 12:29:00 Test Item Value Reference Range Interpretation Comments MCV (test code = MCV) 92.0 80.0-98.0 [place] 235960-11-22 12:29:00 Test Item Value Reference Range Interpretation Comments MCH (test code = MCH) 30.9 pg 27.0-31.0 [place] 235960-11-22 12:29:00 Test Item Value Reference Range Interpretation Comments MCHC (test code = MCHC) 33.6 32.0-36.0 [facility] CenterKnyohykLMFEOALGPW2558-57-94 12:29:00 Test Item Value Reference Range Interpretation Comments RDW (test code = RDW) 12.5 11.5-14.5 [facility] CenterPpvrixqOLHKVOLJNN1363-69-40 12:29:00 Test Item Value Reference Range Interpretation Comments Platelet (test code = Platelet) 165 133-450 [facility] CenterRfdzfqrPZJSHPTUDA7554-31-45 12:29:00 Test Item Value Reference Range Interpretation Comments MPV (test code = MPV) 9.0 7.4-10.4 [facility] CenterMvxwigjNNBWGKQCXJ5855-04-04 12:29:00 Test Item Value Reference Range Interpretation Comments Segs (test code = Segs) 48.2 45.0-75.0 [facility] CenterQkbingfZMZXOGZFSW4521-93-19 12:29:00 Test Item Value Reference Range Interpretation Comments Lymphocytes (test code = Lymphocytes) 40.5 20.0-40.0 [facility] CenterDwxvyzcGPMOATRTZW9833-98-50 12:29:00 Test Item Value Reference Range Interpretation Comments Monocytes (test code = Monocytes) 6.8 2.0-12.0 [facility] CenterMwlwitxKNDYMEXUBH8767-67-86 12:29:00 Test Item Value Reference Range Interpretation Comments Eosinophils (test code = 3.5 See_Comment [A utomated message] The Eosinophils) system which ge nerated this result tra nsmitted reference range : <=4.0. The reference r daniel was not used to int erpret this result as normal/abnormal . [facility] CenterEegtqdiQHBNHBXNXM0505-49-42 12:29:00 Test Item Value Reference Range Interpretation Comments Basophils (test code = 1.0 See_Comment [Aut omated message] The Basophils) system which ge nerated this result tra nsmitted reference range : <=1.0. The reference r daniel was not used to int erpret this result as normal/abnormal . [facility] CenterZgdcwpaVYQOFRHYTF4299-63-74 12:29:00 Test Item Value Reference Range Interpretation Comments Neutrophils # (test code = Neutrophils 1.8 1.5-8.1 #) [facility] CenterFxlhxqdZYRTJBBUNZ3460-01-62 12:29:00 Test Item Value Reference Range Interpretation Comments Lymphocytes # (test code = Lymphocytes 1.5 1.0-5.5 #) [place] 235960-11-22 12:29:00 Test Item Value Reference Range Interpretation Comments Monocytes # (test code 0.3 See_Comment [Aut omated message] The = Monocytes #) system which generated this result tra nsmitted reference range : <=0.8. The reference r daniel was not used to int erpret this result as normal/abnormal . [facility]KLXSNIWUF2261-28-93 12:29:00 Test Item Value Reference Range Interpretation Comments Eosinophils # (test code 0.1 See_Comment [A utomated message] The = Eosinophils #) system whic h generated this result tra nsmitted reference range : <=0.5. The reference r daniel was not used to int erpret this result as normal/abnormal . [facility]2020-11-22 12:29:00 Test Item Value Reference Range Interpretation Comments Total Protein (test code = Total 6.0 6.4-8.4 Protein) [facility]2020-11-22 12:29:00 Test Item Value Reference Range Interpretation Comments Albumin Lvl (test code = Albumin Lvl) 3.1 3.5-5.0 [facility]2020-11-22 12:29:00 Test Item Value Reference Range Interpretation Comments ALT (test code = ALT) 207 See_Comment [Auto mated message] The system which ge nerated this result transmit jeremías reference range : <=65. The reference range was not used to interpr et this result as vernell l/abnormal. [facility]2020-11-22 12:29:00 Test Item Value Reference Range Interpretation Comments AST (test code = AST) 100 See_Comment [Auto mated message] The system which ge nerated this result transmit jeremías reference range : <=37. The reference range was not used to interpr et this result as vernell l/abnormal. [facility]2020-11-22 12:29:00 Test Item Value Reference Range Interpretation Comments Alk Phos (test code = Alk Phos) 133 39-136 [facility]2020-11-22 12:29:00 Test Item Value Reference Range Interpretation Comments Bili Total (test code = Bili Total) 1.1 0.2-1.3 [facility]2020-11-22 12:29:00 Test Item Value Reference Range Interpretation Comments Bili Direct (test code 0.3 See_Comment [Aut omated message] The = Bili Direct) system which generated this result tra nsmitted reference range : <=0.3. The reference r daniel was not used to int erpret this result as vernell l/abnormal. [facility] [id number] 12:29:00 Test Item Value Reference Range Interpretation Comments Bili Indirect (test 0.8 See_Comment [Automa jeremías message] The code = Bili Indirect) system which generated this result tra nsmitted reference range : <=1.0. The reference r daniel was not used to int erpret this result as normal/abnormal . [facility] [id number] 12:29:00 Test Item Value Reference Range Interpretation Comments Globulin (test code = Globulin) 2.9 2.7-4.2 [facility] [id number] 12:29:00 Test Item Value Reference Range Interpretation Comments A/G Ratio (test code = A/G Ratio) 1.1 1 0.7-1.[address] [facility] [id number] 12:29:00 Test Item Value Reference Range Interpretation Comments Glucose Lvl (test code = Glucose Lvl) 79 70-99 [facility] [id number] 12:29:00 Test Item Value Reference Range Interpretation Comments BUN (test code = BUN) 5 7-22 [facility] [id number] 12:29:00 Test Item Value Reference Range Interpretation Comments Creatinine Lvl (test code = Creatinine 0.42 0.50-1.40 Lvl) [facility] [id number] 12:29:00 Test Item Value Reference Range Interpretation Comments Sodium Lvl (test code = Sodium Lvl) 137 135-145 [facility] [id number] 12:29:00 Test Item Value Reference Range Interpretation Comments Potassium Lvl (test code = Potassium 3.9 3.5-5.1 Lvl) [facility]2020-11-22 12:29:00 Test Item Value Reference Range Interpretation Comments Chloride Lvl (test code = Chloride Lvl) 110 95-109 [facility] [id number] 12:29:00 Test Item Value Reference Range Interpretation Comments CO2 (test code = CO2) 23 24-32 [facility]2020-11-22 12:29:00 Test Item Value Reference Range Interpretation Comments Calcium Lvl (test code = Calcium Lvl) 8.5 8.5-10.5 [facility]2020-11-22 12:29:00 Test Item Value Reference Range Interpretation Comments AGAP (test code = AGAP) 7.9 10.0-20.0 [facility]2020-11-22 12:29:00 Test Item Value Reference Range Interpretation Comments eGFR (test code = eGFR) 136 [facility] CenterDcaokzhKYXQGBGUFI8773-66-88 12:29:00 Test Item Value Reference Range Interpretation Comments PT (test code = PT) 15.5 s 12.0-14.7 [place] 235960-11-22 12:29:00 Test Item Value Reference Range Interpretation Comments INR (test code = INR) 1.22 1 0.85-1.17 [place] 235960-11-22 12:29:00 Test Item Value Reference Range Interpretation Comments WBC (test code = WBC) 3.7 3.7-10.4 [place] 235960-11-22 12:29:00 Test Item Value Reference Range Interpretation Comments RBC (test code = RBC) 3.57 4.20-5.40 [facility] CenterGfqndvdCFLLGDBGHJ6165-98-08 12:29:00 Test Item Value Reference Range Interpretation Comments Hgb (test code = Hgb) 11.1 12.0-16.0 [place] 235960-11-22 12:29:00 Test Item Value Reference Range Interpretation Comments Hct (test code = Hct) 32.9 36.0-48.0 [place] 235960-11-22 12:29:00 Test Item Value Reference Range Interpretation Comments MCV (test code = MCV) 92.0 80.0-98.0 [place] 235960-11-22 12:29:00 Test Item Value Reference Range Interpretation Comments MCH (test code = MCH) 30.9 pg 27.0-31.0 [place] 235960-11-22 12:29:00 Test Item Value Reference Range Interpretation Comments MCHC (test code = MCHC) 33.6 32.0-36.0 [place] 235960-11-22 12:29:00 Test Item Value Reference Range Interpretation Comments RDW (test code = RDW) 12.5 11.5-14.5 [facility] CenterIzaupgdFFNSXYUOJS9828-82-69 12:29:00 Test Item Value Reference Range Interpretation Comments Platelet (test code = Platelet) 165 133-450 [facility] CenterEpeenqsKYNCUVVHOK3306-50-69 12:29:00 Test Item Value Reference Range Interpretation Comments MPV (test code = MPV) 9.0 7.4-10.4 [facility] CenterYmdfsrkGBJLNUWMWT3363-45-36 12:29:00 Test Item Value Reference Range Interpretation Comments Segs (test code = Segs) 48.2 45.0-75.0 [place] 235960-11-22 12:29:00 Test Item Value Reference Range Interpretation Comments Lymphocytes (test code = Lymphocytes) 40.5 20.0-40.0 [place] 235960-11-22 12:29:00 Test Item Value Reference Range Interpretation Comments Monocytes (test code = Monocytes) 6.8 2.0-12.0 [facility] CenterRycqzoeMVMROHIPQF5968-22-56 12:29:00 Test Item Value Reference Range Interpretation Comments Eosinophils (test code = 3.5 See_Comment [A utomated message] The Eosinophils) system which ge nerated this result tra nsmitted reference range : <=4.0. The reference r daniel was not used to int erpret this result as normal/abnormal . [facility] CenterMiwbdhpYZUFUCLEVK3759-02-55 12:29:00 Test Item Value Reference Range Interpretation Comments Basophils (test code = 1.0 See_Comment [Aut omated message] The Basophils) system which ge nerated this result tra nsmitted reference range : <=1.0. The reference r daniel was not used to int erpret this result as normal/abnormal . [place] 235960-11-22 12:29:00 Test Item Value Reference Range Interpretation Comments Neutrophils # (test code = Neutrophils 1.8 1.5-8.1 #) [facility] CenterFljpmyjSEUSKENAII9209-89-33 12:29:00 Test Item Value Reference Range Interpretation Comments Lymphocytes # (test code = Lymphocytes 1.5 1.0-5.5 #) [place] 235960-11-22 12:29:00 Test Item Value Reference Range Interpretation Comments Monocytes # (test code 0.3 See_Comment [Aut omated message] The = Monocytes #) system which generated this result tra nsmitted reference range : <=0.8. The reference r daniel was not used to int erpret this result as normal/abnormal . [facility] CenterOpeybjuIUEIAFMZBP4253-84-63 12:29:00 Test Item Value Reference Range Interpretation Comments Eosinophils # (test code 0.1 See_Comment [A utomated message] The = Eosinophils #) system whic h generated this result tra nsmitted reference range : <=0.5. The reference r daniel was not used to int erpret this result as normal/abnormal . [facility] [id number] 12:29:00 Test Item Value Reference Range Interpretation Comments Total Protein (test code = Total 6.0 6.4-8.4 Protein) [place] [address]-11-22 12:29:00 Test Item Value Reference Range Interpretation Comments Albumin Lvl (test code = Albumin Lvl) 3.1 3.5-5.0 [place] 447990-11-22 12:29:00 Test Item Value Reference Range Interpretation Comments ALT (test code = ALT) 207 See_Comment [Auto mated message] The system which ge nerated this result transmit jeremías reference range : <=65. The reference range was not used to interpr et this result as vernell l/abnormal. [facility] [id number] 12:29:00 Test Item Value Reference Range Interpretation Comments AST (test code = AST) 100 See_Comment [Auto mated message] The system which ge nerated this result transmit jeremías reference range : <=37. The reference range was not used to interpr et this result as vernell l/abnormal. [facility] [id number] 12:29:00 Test Item Value Reference Range Interpretation Comments Alk Phos (test code = Alk Phos) 133 39-136 [facility] [id number] 12:29:00 Test Item Value Reference Range Interpretation Comments Bili Total (test code = Bili Total) 1.1 0.2-1.3 [facility] [id number] 12:29:00 Test Item Value Reference Range Interpretation Comments Bili Direct (test code 0.3 See_Comment [Aut omated message] The = Bili Direct) system which generated this result tra nsmitted reference range : <=0.3. The reference r daniel was not used to int erpret this result as vernell l/abnormal. [facility] [id number] 12:29:00 Test Item Value Reference Range Interpretation Comments Bili Indirect (test 0.8 See_Comment [Automa jeremías message] The code = Bili Indirect) system which generated this result tra nsmitted reference range : <=1.0. The reference r daniel was not used to int erpret this result as normal/abnormal . [facility] [id number] 12:29:00 Test Item Value Reference Range Interpretation Comments Globulin (test code = Globulin) 2.9 2.7-4.2 [place] 447990-11-22 12:29:00 Test Item Value Reference Range Interpretation Comments A/G Ratio (test code = A/G Ratio) 1.1 1 0.7-1.[address] [facility] [id number] 12:29:00 Test Item Value Reference Range Interpretation Comments Glucose Lvl (test code = Glucose Lvl) 79 70-99 [facility] [id number] 12:29:00 Test Item Value Reference Range Interpretation Comments BUN (test code = BUN) 5 7-22 [facility] [id number] 12:29:00 Test Item Value Reference Range Interpretation Comments Creatinine Lvl (test code = Creatinine 0.42 0.50-1.40 Lvl) [facility] [id number] 12:29:00 Test Item Value Reference Range Interpretation Comments Sodium Lvl (test code = Sodium Lvl) 137 135-145 [facility] [id number] 12:29:00 Test Item Value Reference Range Interpretation Comments Potassium Lvl (test code = Potassium 3.9 3.5-5.1 Lvl) [facility] [id number] 12:29:00 Test Item Value Reference Range Interpretation Comments Chloride Lvl (test code = Chloride Lvl) 110 95-109 [facility] [id number] 12:29:00 Test Item Value Reference Range Interpretation Comments CO2 (test code = CO2) 23 24-32 [facility] [id number] 12:29:00 Test Item Value Reference Range Interpretation Comments Calcium Lvl (test code = Calcium Lvl) 8.5 8.5-10.5 [facility] [id number] 12:29:00 Test Item Value Reference Range Interpretation Comments AGAP (test code = AGAP) 7.9 10.0-20.0 [facility]2020-11-22 12:29:00 Test Item Value Reference Range Interpretation Comments eGFR (test code = eGFR) 136 [facility] CenterNjqfpcuLHRYFLAFFV2141-58-13 12:29:00 Test Item Value Reference Range Interpretation Comments PT (test code = PT) 15.5 s 12.0-14.7 [facility] CenterNwjplbxZWWWDEKLWJ2787-80-62 12:29:00 Test Item Value Reference Range Interpretation Comments INR (test code = INR) 1.22 1 0.85-1.17 [facility] CenterLfabmlhBGDAKXSELM9289-77-26 12:29:00 Test Item Value Reference Range Interpretation Comments WBC (test code = WBC) 3.7 3.7-10.4 [facility] CenterZwdpwiuVUXSKFQWMX5355-85-94 12:29:00 Test Item Value Reference Range Interpretation Comments RBC (test code = RBC) 3.57 4.20-5.40 [place] 235960-11-22 12:29:00 Test Item Value Reference Range Interpretation Comments Hgb (test code = Hgb) 11.1 12.0-16.0 [place] 235960-11-22 12:29:00 Test Item Value Reference Range Interpretation Comments Hct (test code = Hct) 32.9 36.0-48.0 [place] 235960-11-22 12:29:00 Test Item Value Reference Range Interpretation Comments MCV (test code = MCV) 92.0 80.0-98.0 [place] 235960-11-22 12:29:00 Test Item Value Reference Range Interpretation Comments MCH (test code = MCH) 30.9 pg 27.0-31.0 [place] 235960-11-22 12:29:00 Test Item Value Reference Range Interpretation Comments MCHC (test code = MCHC) 33.6 32.0-36.0 [place] 235960-11-22 12:29:00 Test Item Value Reference Range Interpretation Comments RDW (test code = RDW) 12.5 11.5-14.5 [place] 235960-11-22 12:29:00 Test Item Value Reference Range Interpretation Comments Platelet (test code = Platelet) 165 133-450 [place] 235960-11-22 12:29:00 Test Item Value Reference Range Interpretation Comments MPV (test code = MPV) 9.0 7.4-10.4 [place] 235960-11-22 12:29:00 Test Item Value Reference Range Interpretation Comments Segs (test code = Segs) 48.2 45.0-75.0 [place] 235960-11-22 12:29:00 Test Item Value Reference Range Interpretation Comments Lymphocytes (test code = Lymphocytes) 40.5 20.0-40.0 [place] 235960-11-22 12:29:00 Test Item Value Reference Range Interpretation Comments Monocytes (test code = Monocytes) 6.8 2.0-12.0 [place] 235960-11-22 12:29:00 Test Item Value Reference Range Interpretation Comments Eosinophils (test code = 3.5 See_Comment [A utomated message] The Eosinophils) system which ge nerated this result tra nsmitted reference range : <=4.0. The reference r daniel was not used to int erpret this result as normal/abnormal . [facility] CenterVdveyylWBMKHKMMLF4578-44-25 12:29:00 Test Item Value Reference Range Interpretation Comments Basophils (test code = 1.0 See_Comment [Aut omated message] The Basophils) system which ge nerated this result tra nsmitted reference range : <=1.0. The reference r daniel was not used to int erpret this result as normal/abnormal . [facility] CenterSoeuucyKZFFGKYIKV0288-28-76 12:29:00 Test Item Value Reference Range Interpretation Comments Neutrophils # (test code = Neutrophils 1.8 1.5-8.1 #) [place] 235960-11-22 12:29:00 Test Item Value Reference Range Interpretation Comments Lymphocytes # (test code = Lymphocytes 1.5 1.0-5.5 #) [place] 235960-11-22 12:29:00 Test Item Value Reference Range Interpretation Comments Monocytes # (test code 0.3 See_Comment [Aut omated message] The = Monocytes #) system which generated this result tra nsmitted reference range : <=0.8. The reference r daniel was not used to int erpret this result as normal/abnormal . [facility] CenterLebskyeWHOYMVCMDI8669-51-63 12:29:00 Test Item Value Reference Range Interpretation Comments Eosinophils # (test code 0.1 See_Comment [A utomated message] The = Eosinophils #) system whic h generated this result tra nsmitted reference range : <=0.5. The reference r daniel was not used to int erpret this result as normal/abnormal . [facility] [id number] 12:29:00 Test Item Value Reference Range Interpretation Comments Total Protein (test code = Total 6.0 6.4-8.4 Protein) [place] 447990-11-22 12:29:00 Test Item Value Reference Range Interpretation Comments Albumin Lvl (test code = Albumin Lvl) 3.1 3.5-5.0 [facility]2020-11-22 12:29:00 Test Item Value Reference Range Interpretation Comments ALT (test code = ALT) 207 See_Comment [Auto mated message] The system which ge nerated this result transmit jeremías reference range : <=65. The reference range was not used to interpr et this result as vernell l/abnormal. [facility] [id number] 12:29:00 Test Item Value Reference Range Interpretation Comments AST (test code = AST) 100 See_Comment [Auto mated message] The system which ge nerated this result transmit jeremías reference range : <=37. The reference range was not used to interpr et this result as vernell l/abnormal. [facility] [id number] 12:29:00 Test Item Value Reference Range Interpretation Comments Alk Phos (test code = Alk Phos) 133 39-136 [facility] [id number] 12:29:00 Test Item Value Reference Range Interpretation Comments Bili Total (test code = Bili Total) 1.1 0.2-1.3 [place] 447990-11-22 12:29:00 Test Item Value Reference Range Interpretation Comments Bili Direct (test code 0.3 See_Comment [Aut omated message] The = Bili Direct) system which generated this result tra nsmitted reference range : <=0.3. The reference r daniel was not used to int erpret this result as vernell l/abnormal. [place] 447990-11-22 12:29:00 Test Item Value Reference Range Interpretation Comments Bili Indirect (test 0.8 See_Comment [Automa jeremías message] The code = Bili Indirect) system which generated this result tra nsmitted reference range : <=1.0. The reference r daniel was not used to int erpret this result as normal/abnormal . [place] 447990-11-22 12:29:00 Test Item Value Reference Range Interpretation Comments Globulin (test code = Globulin) 2.9 2.7-4.2 [place] 447990-11-22 12:29:00 Test Item Value Reference Range Interpretation Comments A/G Ratio (test code = A/G Ratio) 1.1 1 0.7-1.6 [place] 447990-11-22 12:29:00 Test Item Value Reference Range Interpretation Comments Glucose Lvl (test code = Glucose Lvl) 79 70-99 [place] 447990-11-22 12:29:00 Test Item Value Reference Range Interpretation Comments BUN (test code = BUN) 5 7-22 [place] 447990-11-22 12:29:00 Test Item Value Reference Range Interpretation Comments Creatinine Lvl (test code = Creatinine 0.42 0.50-1.40 Lvl) [place] 447990-11-22 12:29:00 Test Item Value Reference Range Interpretation Comments Sodium Lvl (test code = Sodium Lvl) 137 135-145 [facility]2020-11-22 12:29:00 Test Item Value Reference Range Interpretation Comments Potassium Lvl (test code = Potassium 3.9 3.5-5.1 Lvl) [place] 447990-11-22 12:29:00 Test Item Value Reference Range Interpretation Comments Chloride Lvl (test code = Chloride Lvl) 110 95-109 [facility]2020-11-22 12:29:00 Test Item Value Reference Range Interpretation Comments CO2 (test code = CO2) 23 24-32 [place] 447990-11-22 12:29:00 Test Item Value Reference Range Interpretation Comments Calcium Lvl (test code = Calcium Lvl) 8.5 8.5-10.5 [facility] [id number] 12:29:00 Test Item Value Reference Range Interpretation Comments AGAP (test code = AGAP) 7.9 10.0-20.0 [facility] [id number] 12:29:00 Test Item Value Reference Range Interpretation Comments eGFR (test code = eGFR) 136 [facility] CenterGvgtlhrQNTYFDORWD3179-76-96 12:29:00 Test Item Value Reference Range Interpretation Comments PT (test code = PT) 15.5 s 12.0-14.7 [facility] CenterIyhhufzRPAVKUSKHF8533-97-51 12:29:00 Test Item Value Reference Range Interpretation Comments INR (test code = INR) 1.22 1 0.85-1.17 [place] 235960-11-22 12:29:00 Test Item Value Reference Range Interpretation Comments WBC (test code = WBC) 3.7 3.7-10.4 [facility] CenterMmbvjacRDLDPRYDEE4986-70-94 12:29:00 Test Item Value Reference Range Interpretation Comments RBC (test code = RBC) 3.57 4.20-5.40 [facility] CenterFcgwoujOZYGSEOTNY6040-68-36 12:29:00 Test Item Value Reference Range Interpretation Comments Hgb (test code = Hgb) 11.1 12.0-16.0 [facility] CenterXqhohjkNOLZLLJIZL6489-54-25 12:29:00 Test Item Value Reference Range Interpretation Comments Hct (test code = Hct) 32.9 36.0-48.0 [place] 235960-11-22 12:29:00 Test Item Value Reference Range Interpretation Comments MCV (test code = MCV) 92.0 80.0-98.0 [place] 235960-11-22 12:29:00 Test Item Value Reference Range Interpretation Comments MCH (test code = MCH) 30.9 pg 27.0-31.0 [place] 235960-11-22 12:29:00 Test Item Value Reference Range Interpretation Comments MCHC (test code = MCHC) 33.6 32.0-36.0 [place] 235960-11-22 12:29:00 Test Item Value Reference Range Interpretation Comments RDW (test code = RDW) 12.5 11.5-14.5 [place] 235960-11-22 12:29:00 Test Item Value Reference Range Interpretation Comments Platelet (test code = Platelet) 165 133-450 [facility] CenterVxmyfhiEXIPYKEZGS0212-38-30 12:29:00 Test Item Value Reference Range Interpretation Comments MPV (test code = MPV) 9.0 7.4-10.4 [place] 235960-11-22 12:29:00 Test Item Value Reference Range Interpretation Comments Segs (test code = Segs) 48.2 45.0-75.0 [facility] CenterMzugffbIGCPCSQJAN1825-25-88 12:29:00 Test Item Value Reference Range Interpretation Comments Lymphocytes (test code = Lymphocytes) 40.5 20.0-40.0 [place] 235960-11-22 12:29:00 Test Item Value Reference Range Interpretation Comments Monocytes (test code = Monocytes) 6.8 2.0-12.0 [place] 235960-11-22 12:29:00 Test Item Value Reference Range Interpretation Comments Eosinophils (test code = 3.5 See_Comment [A utomated message] The Eosinophils) system which ge nerated this result tra nsmitted reference range : <=4.0. The reference r daniel was not used to int erpret this result as normal/abnormal . [facility]ZhwcofnLKCDLCGWCH2874-67-90 12:29:00 Test Item Value Reference Range Interpretation Comments Basophils (test code = 1.0 See_Comment [Aut omated message] The Basophils) system which ge nerated this result tra nsmitted reference range : <=1.0. The reference r daniel was not used to int erpret this result as normal/abnormal . [facility] CenterLecmiqmFHHOJEXPOI9902-88-80 12:29:00 Test Item Value Reference Range Interpretation Comments Neutrophils # (test code = Neutrophils 1.8 1.5-8.1 #) [place] 235960-11-22 12:29:00 Test Item Value Reference Range Interpretation Comments Lymphocytes # (test code = Lymphocytes 1.5 1.0-5.5 #) [facility] CenterWljnebuTDJVWVHWQM4350-33-21 12:29:00 Test Item Value Reference Range Interpretation Comments Monocytes # (test code 0.3 See_Comment [Aut omated message] The = Monocytes #) system which generated this result tra nsmitted reference range : <=0.8. The reference r daniel was not used to int erpret this result as normal/abnormal . [facility]cdgmyjPAVXGCRUAW0309-43-42 12:29:00 Test Item Value Reference Range Interpretation Comments Eosinophils # (test code 0.1 See_Comment [A utomated message] The = Eosinophils #) system whic h generated this result tra nsmitted reference range : <=0.5. The reference r daniel was not used to int erpret this result as normal/abnormal . [facility]2020-11-22 12:29:00 Test Item Value Reference Range Interpretation Comments Total Protein (test code = Total 6.0 6.4-8.4 Protein) [place] 447990-11-22 12:29:00 Test Item Value Reference Range Interpretation Comments Albumin Lvl (test code = Albumin Lvl) 3.1 3.5-5.0 [facility]2020-11-22 12:29:00 Test Item Value Reference Range Interpretation Comments ALT (test code = ALT) 207 See_Comment [Auto mated message] The system which ge nerated this result transmit jeremías reference range : <=65. The reference range was not used to interpr et this result as vernell l/abnormal. [facility]2020-11-22 12:29:00 Test Item Value Reference Range Interpretation Comments AST (test code = AST) 100 See_Comment [Auto mated message] The system which ge nerated this result transmit jeremías reference range : <=37. The reference range was not used to interpr et this result as vernell l/abnormal. [facility]2020-11-22 12:29:00 Test Item Value Reference Range Interpretation Comments Alk Phos (test code = Alk Phos) 133 39-136 [place] [address]-11-22 12:29:00 Test Item Value Reference Range Interpretation Comments Bili Total (test code = Bili Total) 1.1 0.2-1.3 [place] [address]-11-22 12:29:00 Test Item Value Reference Range Interpretation Comments Bili Direct (test code 0.3 See_Comment [Aut omated message] The = Bili Direct) system which generated this result tra nsmitted reference range : <=0.3. The reference r daniel was not used to int erpret this result as vernell l/abnormal. [facility] [id number] 12:29:00 Test Item Value Reference Range Interpretation Comments Bili Indirect (test 0.8 See_Comment [Automa jeremías message] The code = Bili Indirect) system which generated this result tra nsmitted reference range : <=1.0. The reference r daniel was not used to int erpret this result as normal/abnormal . [facility]2020-11-22 12:29:00 Test Item Value Reference Range Interpretation Comments Globulin (test code = Globulin) 2.9 2.7-4.2 [place] 447990-11-22 12:29:00 Test Item Value Reference Range Interpretation Comments A/G Ratio (test code = A/G Ratio) 1.1 1 0.7-1.6 [place] 447990-11-22 12:29:00 Test Item Value Reference Range Interpretation Comments Glucose Lvl (test code = Glucose Lvl) 79 70-[address] [facility] [id number] 12:29:00 Test Item Value Reference Range Interpretation Comments BUN (test code = BUN) 5 7-22 [facility]2020-11-22 12:29:00 Test Item Value Reference Range Interpretation Comments Creatinine Lvl (test code = Creatinine 0.42 0.50-1.40 Lvl) [facility]2020-11-22 12:29:00 Test Item Value Reference Range Interpretation Comments Sodium Lvl (test code = Sodium Lvl) 137 135-145 [facility] [id number] 12:29:00 Test Item Value Reference Range Interpretation Comments Potassium Lvl (test code = Potassium 3.9 3.5-5.1 Lvl) [place] 447990-11-22 12:29:00 Test Item Value Reference Range Interpretation Comments Chloride Lvl (test code = Chloride Lvl) 110 95-109 [facility] [id number] 12:29:00 Test Item Value Reference Range Interpretation Comments CO2 (test code = CO2) 23 24-32 [place] 447990-11-22 12:29:00 Test Item Value Reference Range Interpretation Comments Calcium Lvl (test code = Calcium Lvl) 8.5 8.5-10.[address] [facility] [id number] 12:29:00 Test Item Value Reference Range Interpretation Comments AGAP (test code = AGAP) 7.9 10.0-20.0 [facility]2020-11-22 12:29:00 Test Item Value Reference Range Interpretation Comments eGFR (test code = eGFR) 136 [facility]KLOELGGBL1849[facility]67-63 12:29:00 Test Item Value Reference Range Interpretation Comments PT (test code = PT) 15.5 s 12.0-14.7 [facility] CenterDkkofqaRPLVFXLPWV6413-67-49 12:29:00 Test Item Value Reference Range Interpretation Comments INR (test code = INR) 1.22 1 0.85-1.17 [facility] CenterXqctbniGMEJJNSVII3516-89-77 12:29:00 Test Item Value Reference Range Interpretation Comments WBC (test code = WBC) 3.7 3.7-10.4 [facility] CenterOcrnqxePQNGIZKJAH0299-73-74 12:29:00 Test Item Value Reference Range Interpretation Comments RBC (test code = RBC) 3.57 4.20-5.40 [facility] CenterMqqpqjzOJRTZDOZAB2742-17-79 12:29:00 Test Item Value Reference Range Interpretation Comments Hgb (test code = Hgb) 11.1 12.0-16.0 [facility] CenterLdfzmhpMWJYXDGJEV0355-39-56 12:29:00 Test Item Value Reference Range Interpretation Comments Hct (test code = Hct) 32.9 36.0-48.0 [facility] CenterYioigrzFHTIEPDXMJ4263-14-37 12:29:00 Test Item Value Reference Range Interpretation Comments MCV (test code = MCV) 92.0 80.0-98.0 [facility] CenterPpvkwkwIEXPQDGOVQ1372-44-64 12:29:00 Test Item Value Reference Range Interpretation Comments MCH (test code = MCH) 30.9 pg 27.0-31.0 [facility] CenterXkaomzfPQNBNFISAS1182-89-84 12:29:00 Test Item Value Reference Range Interpretation Comments MCHC (test code = MCHC) 33.6 32.0-36.0 [facility] CenterNcwbdtsWHSZZOOVBL8334-03-26 12:29:00 Test Item Value Reference Range Interpretation Comments RDW (test code = RDW) 12.5 11.5-14.5 [facility]YrcrygsJGNAJTCFOS9677-14-39 12:29:00 Test Item Value Reference Range Interpretation Comments Platelet (test code = Platelet) 165 133-450 [place] 235960-11-22 12:29:00 Test Item Value Reference Range Interpretation Comments MPV (test code = MPV) 9.0 7.4-10.4 [place] 235960-11-22 12:29:00 Test Item Value Reference Range Interpretation Comments Segs (test code = Segs) 48.2 45.0-75.0 [place] 235960-11-22 12:29:00 Test Item Value Reference Range Interpretation Comments Lymphocytes (test code = Lymphocytes) 40.5 20.0-40.0 [place] 235960-11-22 12:29:00 Test Item Value Reference Range Interpretation Comments Monocytes (test code = Monocytes) 6.8 2.0-12.0 [place] 235960-11-22 12:29:00 Test Item Value Reference Range Interpretation Comments Eosinophils (test code = 3.5 See_Comment [A utomated message] The Eosinophils) system which ge nerated this result tra nsmitted reference range : <=4.0. The reference r daniel was not used to int erpret this result as normal/abnormal . [facility] CenterZgqnaopVHWXICTZBS3280-14-78 12:29:00 Test Item Value Reference Range Interpretation Comments Basophils (test code = 1.0 See_Comment [Aut omated message] The Basophils) system which ge nerated this result tra nsmitted reference range : <=1.0. The reference r daniel was not used to int erpret this result as normal/abnormal . [facility] CenterSjlzlimLJEZDTPEDY5431-03-02 12:29:00 Test Item Value Reference Range Interpretation Comments Neutrophils # (test code = Neutrophils 1.8 1.5-8.1 #) [place] 235960-11-22 12:29:00 Test Item Value Reference Range Interpretation Comments Lymphocytes # (test code = Lymphocytes 1.5 1.0-5.5 #) [place] [address]-11-22 12:29:00 Test Item Value Reference Range Interpretation Comments Monocytes # (test code 0.3 See_Comment [Aut omated message] The = Monocytes #) system which generated this result tra nsmitted reference range : <=0.8. The reference r daniel was not used to int erpret this result as normal/abnormal . [place] 235960-11-22 12:29:00 Test Item Value Reference Range Interpretation Comments Eosinophils # (test code 0.1 See_Comment [A utomated message] The = Eosinophils #) system whic h generated this result tra nsmitted reference range : <=0.5. The reference r daniel was not used to int erpret this result as normal/abnormal . [place] 447990-11-22 12:29:00 Test Item Value Reference Range Interpretation Comments Total Protein (test code = Total 6.0 6.4-8.4 Protein) [place] [address]-11-22 12:29:00 Test Item Value Reference Range Interpretation Comments Albumin Lvl (test code = Albumin Lvl) 3.1 3.5-5.0 [place] 447990-11-22 12:29:00 Test Item Value Reference Range Interpretation Comments ALT (test code = ALT) 207 See_Comment [Auto mated message] The system which ge nerated this result transmit jeremías reference range : <=65. The reference range was not used to interpr et this result as vernell l/abnormal. [place] [address]-11-22 12:29:00 Test Item Value Reference Range Interpretation Comments AST (test code = AST) 100 See_Comment [Auto mated message] The system which ge nerated this result transmit jeremías reference range : <=37. The reference range was not used to interpr et this result as vernell l/abnormal. [place] 447990-11-22 12:29:00 Test Item Value Reference Range Interpretation Comments Alk Phos (test code = Alk Phos) 133 39-136 [place] [address]-11-22 12:29:00 Test Item Value Reference Range Interpretation Comments Bili Total (test code = Bili Total) 1.1 0.2-1.3 [place] [address]-11-22 12:29:00 Test Item Value Reference Range Interpretation Comments Bili Direct (test code 0.3 See_Comment [Aut omated message] The = Bili Direct) system which generated this result tra nsmitted reference range : <=0.3. The reference r daniel was not used to int erpret this result as vernell l/abnormal. [place] [address]-11-22 12:29:00 Test Item Value Reference Range Interpretation Comments Bili Indirect (test 0.8 See_Comment [Automa jeremías message] The code = Bili Indirect) system which generated this result tra nsmitted reference range : <=1.0. The reference r daniel was not used to int erpret this result as normal/abnormal . [facility] [id number] 12:29:00 Test Item Value Reference Range Interpretation Comments Globulin (test code = Globulin) 2.9 2.7-4.2 [facility] [id number] 12:29:00 Test Item Value Reference Range Interpretation Comments A/G Ratio (test code = A/G Ratio) 1.1 1 0.7-1.6 [facility] [id number] 12:29:00 Test Item Value Reference Range Interpretation Comments Glucose Lvl (test code = Glucose Lvl) 79 70-99 [facility] [id number] 12:29:00 Test Item Value Reference Range Interpretation Comments BUN (test code = BUN) 5 7-22 [facility] [id number] 12:29:00 Test Item Value Reference Range Interpretation Comments Creatinine Lvl (test code = Creatinine 0.42 0.50-1.40 Lvl) [facility] [id number] 12:29:00 Test Item Value Reference Range Interpretation Comments Sodium Lvl (test code = Sodium Lvl) 137 135-145 [facility] [id number] 12:29:00 Test Item Value Reference Range Interpretation Comments Potassium Lvl (test code = Potassium 3.9 3.5-5.1 Lvl) [facility] [id number] 12:29:00 Test Item Value Reference Range Interpretation Comments Chloride Lvl (test code = Chloride Lvl) 110 95-109 [facility] [id number] 12:29:00 Test Item Value Reference Range Interpretation Comments CO2 (test code = CO2) 23 24-32 [facility] [id number] 12:29:00 Test Item Value Reference Range Interpretation Comments Calcium Lvl (test code = Calcium Lvl) 8.5 8.5-10.5 [facility] [id number] 12:29:00 Test Item Value Reference Range Interpretation Comments AGAP (test code = AGAP) 7.9 10.0-20.0 [facility]2020-11-22 12:29:00 Test Item Value Reference Range Interpretation Comments eGFR (test code = eGFR) 136 [facility] CenterFbiqabtGYOUNEPTQV0453-47-39 12:29:00 Test Item Value Reference Range Interpretation Comments PT (test code = PT) 15.5 s 12.0-14.7 [facility]DixscukPAEAWNXUPL2531-94-97 12:29:00 Test Item Value Reference Range Interpretation Comments INR (test code = INR) 1.22 1 0.85-1.17 [facility] CenterZoechjdIHOUPOFSEB9762-85-71 12:29:00 Test Item Value Reference Range Interpretation Comments WBC (test code = WBC) 3.7 3.7-10.4 [facility] CenterYebutxoRBATLTUVEQ7248-27-47 12:29:00 Test Item Value Reference Range Interpretation Comments RBC (test code = RBC) 3.57 4.20-5.40 [facility] CenterNcezxaaWXXGDDXSOS3438-03-44 12:29:00 Test Item Value Reference Range Interpretation Comments Hgb (test code = Hgb) 11.1 12.0-16.0 [facility] CenterRbwwyupYJXKWIOPUN3321-63-86 12:29:00 Test Item Value Reference Range Interpretation Comments Hct (test code = Hct) 32.9 36.0-48.0 [facility] CenterGrjchbyOZLTISTFVN6136-96-84 12:29:00 Test Item Value Reference Range Interpretation Comments MCV (test code = MCV) 92.0 80.0-98.0 [facility] CenterKnrtpfvBIKGKMSGOB0471-42-58 12:29:00 Test Item Value Reference Range Interpretation Comments MCH (test code = MCH) 30.9 pg 27.0-31.0 [facility] CenterOaifqjfMWZCKCSPVT3534-67-21 12:29:00 Test Item Value Reference Range Interpretation Comments MCHC (test code = MCHC) 33.6 32.0-36.0 [facility] CenterCgppiewUVIHAWCSFN3655-08-06 12:29:00 Test Item Value Reference Range Interpretation Comments RDW (test code = RDW) 12.5 11.5-14.5 [facility] CenterFxwfrzqNZDVXTFRHP0709-12-51 12:29:00 Test Item Value Reference Range Interpretation Comments Platelet (test code = Platelet) 165 133-450 [facility] CenterLwbphbwGSXUOBIOUK3371-94-04 12:29:00 Test Item Value Reference Range Interpretation Comments MPV (test code = MPV) 9.0 7.4-10.4 [facility] CenterEznkobpEJGKRXZBNV5061-24-05 12:29:00 Test Item Value Reference Range Interpretation Comments Segs (test code = Segs) 48.2 45.0-75.0 [place] 235960-11-22 12:29:00 Test Item Value Reference Range Interpretation Comments Lymphocytes (test code = Lymphocytes) 40.5 20.0-40.0 [place] 235960-11-22 12:29:00 Test Item Value Reference Range Interpretation Comments Monocytes (test code = Monocytes) 6.8 2.0-12.0 [facility] CenterLfamajcAGTJIXMPTU7300-22-89 12:29:00 Test Item Value Reference Range Interpretation Comments Eosinophils (test code = 3.5 See_Comment [A utomated message] The Eosinophils) system which ge nerated this result tra nsmitted reference range : <=4.0. The reference r daniel was not used to int erpret this result as normal/abnormal . [facility] CenterYiklywiVXRBEUUOSW6418-11-53 12:29:00 Test Item Value Reference Range Interpretation Comments Basophils (test code = 1.0 See_Comment [Aut omated message] The Basophils) system which ge nerated this result tra nsmitted reference range : <=1.0. The reference r daniel was not used to int erpret this result as normal/abnormal . [facility] CenterVhuobjoVKWMOAGSGM4627-94-93 12:29:00 Test Item Value Reference Range Interpretation Comments Neutrophils # (test code = Neutrophils 1.8 1.5-8.1 #) [facility] CenterOsbkrqpIBXROETJAC2714-36-36 12:29:00 Test Item Value Reference Range Interpretation Comments Lymphocytes # (test code = Lymphocytes 1.5 1.0-5.5 #) [place] 235960-11-22 12:29:00 Test Item Value Reference Range Interpretation Comments Monocytes # (test code 0.3 See_Comment [Aut omated message] The = Monocytes #) system which generated this result tra nsmitted reference range : <=0.8. The reference r daniel was not used to int erpret this result as normal/abnormal . [place] 235960-11-22 12:29:00 Test Item Value Reference Range Interpretation Comments Eosinophils # (test code 0.1 See_Comment [A utomated message] The = Eosinophils #) system whic h generated this result tra nsmitted reference range : <=0.5. The reference r daniel was not used to int erpret this result as normal/abnormal . [facility] [employer] [id number] 12:29:00 Test Item Value Reference Range Interpretation Comments Total Protein (test code = Total 6.0 6.4-8.4 Protein) [facility] [id number] 12:29:00 Test Item Value Reference Range Interpretation Comments Albumin Lvl (test code = Albumin Lvl) 3.1 3.5-5.0 [facility] [employer] [id number] 12:29:00 Test Item Value Reference Range Interpretation Comments ALT (test code = ALT) 207 See_Comment [Auto mated message] The system which ge nerated this result transmit jeremías reference range : <=65. The reference range was not used to interpr et this result as vernell l/abnormal. [facility] [employer] [id number] 12:29:00 Test Item Value Reference Range Interpretation Comments AST (test code = AST) 100 See_Comment [Auto mated message] The system which ge nerated this result transmit jeremías reference range : <=37. The reference range was not used to interpr et this result as vernell l/abnormal. [facility] [employer] [id number] 12:29:00 Test Item Value Reference Range Interpretation Comments Alk Phos (test code = Alk Phos) 133 39-136 [facility] [employer] [id number] 12:29:00 Test Item Value Reference Range Interpretation Comments Bili Total (test code = Bili Total) 1.1 0.2-1.3 [facility] [employer] [id number] 12:29:00 Test Item Value Reference Range Interpretation Comments Bili Direct (test code 0.3 See_Comment [Aut omated message] The = Bili Direct) system which generated this result tra nsmitted reference range : <=0.3. The reference r daniel was not used to int erpret this result as vernell l/abnormal. [facility]2020-11-22 12:29:00 Test Item Value Reference Range Interpretation Comments Bili Indirect (test 0.8 See_Comment [Automa jeremías message] The code = Bili Indirect) system which generated this result tra nsmitted reference range : <=1.0. The reference r daniel was not used to int erpret this result as normal/abnormal . [facility] [id number] 12:29:00 Test Item Value Reference Range Interpretation Comments Globulin (test code = Globulin) 2.9 2.7-4.2 [place] 447990-11-22 12:29:00 Test Item Value Reference Range Interpretation Comments A/G Ratio (test code = A/G Ratio) 1.1 1 0.7-1.6 [place] 447990-11-22 12:29:00 Test Item Value Reference Range Interpretation Comments Glucose Lvl (test code = Glucose Lvl) 79 70-99 [facility]2020-11-22 12:29:00 Test Item Value Reference Range Interpretation Comments BUN (test code = BUN) 5 7-22 [facility]2020-11-22 12:29:00 Test Item Value Reference Range Interpretation Comments Creatinine Lvl (test code = Creatinine 0.42 0.50-1.40 Lvl) [facility] [id number] 12:29:00 Test Item Value Reference Range Interpretation Comments Sodium Lvl (test code = Sodium Lvl) 137 135-145 [facility] [id number] 12:29:00 Test Item Value Reference Range Interpretation Comments Potassium Lvl (test code = Potassium 3.9 3.5-5.1 Lvl) [facility] [id number] 12:29:00 Test Item Value Reference Range Interpretation Comments Chloride Lvl (test code = Chloride Lvl) 110 95-109 [facility] [id number] 12:29:00 Test Item Value Reference Range Interpretation Comments CO2 (test code = CO2) 23 24-32 [facility] [id number] 12:29:00 Test Item Value Reference Range Interpretation Comments Calcium Lvl (test code = Calcium Lvl) 8.5 8.5-10.[address] [facility] [id number] 12:29:00 Test Item Value Reference Range Interpretation Comments AGAP (test code = AGAP) 7.9 10.0-20.0 [facility] [id number] 12:29:00 Test Item Value Reference Range Interpretation Comments eGFR (test code = eGFR) 136 [facility] CenterLjzuxhfFGGAVXBMMB8591-67-79 12:29:00 Test Item Value Reference Range Interpretation Comments PT (test code = PT) 15.5 s 12.0-14.7 [facility] CenterHjgpoweUBFCTBEXTS9727-08-31 12:29:00 Test Item Value Reference Range Interpretation Comments INR (test code = INR) 1.22 1 0.85-1.17 [facility] CenterOwctpfkOVPSYUXXFQ1281-50-01 12:29:00 Test Item Value Reference Range Interpretation Comments WBC (test code = WBC) 3.7 3.7-10.4 [facility] CenterStdpupjZXGZAYHJOE4554-08-38 12:29:00 Test Item Value Reference Range Interpretation Comments RBC (test code = RBC) 3.57 4.20-5.40 [facility] CenterCljqkfaJYJLUVLDEP8224-80-64 12:29:00 Test Item Value Reference Range Interpretation Comments Hgb (test code = Hgb) 11.1 12.0-16.0 [facility] CenterUrqfqfsPGDLQBYEJA1089-96-06 12:29:00 Test Item Value Reference Range Interpretation Comments Hct (test code = Hct) 32.9 36.0-48.0 [facility] CenterRpdwontLFECKKBSJP0832-15-65 12:29:00 Test Item Value Reference Range Interpretation Comments MCV (test code = MCV) 92.0 80.0-98.0 [facility] CenterWgbdlevILLELIKZGN3965-95-84 12:29:00 Test Item Value Reference Range Interpretation Comments MCH (test code = MCH) 30.9 pg 27.0-31.0 [facility] CenterTugwhvrZANIEXSMFR7886-71-84 12:29:00 Test Item Value Reference Range Interpretation Comments MCHC (test code = MCHC) 33.6 32.0-36.0 [facility] CenterXsndrbaVXRXCIJPGE3059-21-59 12:29:00 Test Item Value Reference Range Interpretation Comments RDW (test code = RDW) 12.5 11.5-14.5 [facility] CenterHoizuyhNTMCTTLPRQ7167-43-43 12:29:00 Test Item Value Reference Range Interpretation Comments Platelet (test code = Platelet) 165 133-450 [facility] CenterBnmalplBDFQZJIBKS6136-46-16 12:29:00 Test Item Value Reference Range Interpretation Comments MPV (test code = MPV) 9.0 7.4-10.4 [place] 235960-11-22 12:29:00 Test Item Value Reference Range Interpretation Comments Segs (test code = Segs) 48.2 45.0-75.0 [place] 235960-11-22 12:29:00 Test Item Value Reference Range Interpretation Comments Lymphocytes (test code = Lymphocytes) 40.5 20.0-40.0 [place] 235960-11-22 12:29:00 Test Item Value Reference Range Interpretation Comments Monocytes (test code = Monocytes) 6.8 2.0-12.0 [place] 235960-11-22 12:29:00 Test Item Value Reference Range Interpretation Comments Eosinophils (test code = 3.5 See_Comment [A utomated message] The Eosinophils) system which ge nerated this result tra nsmitted reference range : <=4.0. The reference r daniel was not used to int erpret this result as normal/abnormal . [facility] CenterJvlnloyRYMSTHYVLG4591-86-45 12:29:00 Test Item Value Reference Range Interpretation Comments Basophils (test code = 1.0 See_Comment [Aut omated message] The Basophils) system which ge nerated this result tra nsmitted reference range : <=1.0. The reference r daniel was not used to int erpret this result as normal/abnormal . [facility]DddyfjtVXJLBPTLUF1807-54-80 12:29:00 Test Item Value Reference Range Interpretation Comments Neutrophils # (test code = Neutrophils 1.8 1.5-8.1 #) [facility] CenterRjttsrnXPYXTXHHOL2709-12-41 12:29:00 Test Item Value Reference Range Interpretation Comments Lymphocytes # (test code = Lymphocytes 1.5 1.0-5.5 #) [place] [address]-11-22 12:29:00 Test Item Value Reference Range Interpretation Comments Monocytes # (test code 0.3 See_Comment [Aut omated message] The = Monocytes #) system which generated this result tra nsmitted reference range : <=0.8. The reference r daniel was not used to int erpret this result as normal/abnormal . [place] 235960-11-22 12:29:00 Test Item Value Reference Range Interpretation Comments Eosinophils # (test code 0.1 See_Comment [A utomated message] The = Eosinophils #) system whic h generated this result tra nsmitted reference range : <=0.5. The reference r daniel was not used to int erpret this result as normal/abnormal . [facility] [id number] 12:29:00 Test Item Value Reference Range Interpretation Comments Total Protein (test code = Total 6.0 6.4-8.4 Protein) [address]11-22 12:29:00 Test Item Value Reference Range Interpretation Comments Albumin Lvl (test code = Albumin Lvl) 3.1 3.5-5.[address] [facility] [id number] 12:29:00 Test Item Value Reference Range Interpretation Comments ALT (test code = ALT) 207 See_Comment [Auto mated message] The system which ge nerated this result transmit jeremías reference range : <=65. The reference range was not used to interpr et this result as vernell l/abnormal. [facility] [id number] 12:29:00 Test Item Value Reference Range Interpretation Comments AST (test code = AST) 100 See_Comment [Auto mated message] The system which ge nerated this result transmit jeremías reference range : <=37. The reference range was not used to interpr et this result as vernell l/abnormal. [facility] [id number] 12:29:00 Test Item Value Reference Range Interpretation Comments Alk Phos (test code = Alk Phos) 133 39-136 [facility] [id number] 12:29:00 Test Item Value Reference Range Interpretation Comments Bili Total (test code = Bili Total) 1.1 0.2-1.[address] [facility] [id number] 12:29:00 Test Item Value Reference Range Interpretation Comments Bili Direct (test code 0.3 See_Comment [Aut omated message] The = Bili Direct) system which generated this result tra nsmitted reference range : <=0.3. The reference r daniel was not used to int erpret this result as vernell l/abnormal. [facility] [id number] 12:29:00 Test Item Value Reference Range Interpretation Comments Bili Indirect (test 0.8 See_Comment [Automa jeremías message] The code = Bili Indirect) system which generated this result tra nsmitted reference range : <=1.0. The reference r daniel was not used to int erpret this result as normal/abnormal . [facility]2020-11-22 12:29:00 Test Item Value Reference Range Interpretation Comments Globulin (test code = Globulin) 2.9 2.7-4.2 [facility]2020-11-22 12:29:00 Test Item Value Reference Range Interpretation Comments A/G Ratio (test code = A/G Ratio) 1.1 1 0.7-1.6 [facility]2020-11-22 12:29:00 Test Item Value Reference Range Interpretation Comments Glucose Lvl (test code = Glucose Lvl) 79 70-99 [facility]2020-11-22 12:29:00 Test Item Value Reference Range Interpretation Comments BUN (test code = BUN) 5 7-22 [facility]2020-11-22 12:29:00 Test Item Value Reference Range Interpretation Comments Creatinine Lvl (test code = Creatinine 0.42 0.50-1.40 Lvl) [facility]2020-11-22 12:29:00 Test Item Value Reference Range Interpretation Comments Sodium Lvl (test code = Sodium Lvl) 137 135-145 [facility]2020-11-22 12:29:00 Test Item Value Reference Range Interpretation Comments Potassium Lvl (test code = Potassium 3.9 3.5-5.1 Lvl) [facility]2020-11-22 12:29:00 Test Item Value Reference Range Interpretation Comments Chloride Lvl (test code = Chloride Lvl) 110 95-109 [facility]2020-11-22 12:29:00 Test Item Value Reference Range Interpretation Comments CO2 (test code = CO2) 23 24-32 [facility]2020-11-22 12:29:00 Test Item Value Reference Range Interpretation Comments Calcium Lvl (test code = Calcium Lvl) 8.5 8.5-10.5 [facility]2020-11-22 12:29:00 Test Item Value Reference Range Interpretation Comments AGAP (test code = AGAP) 7.9 10.0-20.0 [facility]2020-11-22 12:29:00 Test Item Value Reference Range Interpretation Comments eGFR (test code = eGFR) 136 [facility] CenterUuwtleaHGOFAJDNAM7881-28-80 12:29:00 Test Item Value Reference Range Interpretation Comments PT (test code = PT) 15.5 s 12.0-14.7 [facility] CenterTqpeeqjZVJOHYDJJC5962-29-42 12:29:00 Test Item Value Reference Range Interpretation Comments INR (test code = INR) 1.22 1 0.85-1.17 [facility] CenterNvciungYKHVSEMNJR6636-23-12 12:29:00 Test Item Value Reference Range Interpretation Comments WBC (test code = WBC) 3.7 3.7-10.4 [facility] CenterNuophmlPMMNEPXFAH2296-32-11 12:29:00 Test Item Value Reference Range Interpretation Comments RBC (test code = RBC) 3.57 4.20-5.40 [facility] CenterOwddrqlBQTDXQMHRU5749-68-20 12:29:00 Test Item Value Reference Range Interpretation Comments Hgb (test code = Hgb) 11.1 12.0-16.0 [place] 235960-11-22 12:29:00 Test Item Value Reference Range Interpretation Comments Hct (test code = Hct) 32.9 36.0-48.0 [facility] CenterWmeejzmWKPCCKOMWB2618-43-49 12:29:00 Test Item Value Reference Range Interpretation Comments MCV (test code = MCV) 92.0 80.0-98.0 [facility] CenterRljuvhaQUCEQIICSN6955-36-85 12:29:00 Test Item Value Reference Range Interpretation Comments MCH (test code = MCH) 30.9 pg 27.0-31.0 [facility] CenterPvxmxpnWWGQYBYVKK8186-97-51 12:29:00 Test Item Value Reference Range Interpretation Comments MCHC (test code = MCHC) 33.6 32.0-36.0 [facility] CenterUooptujCTHEHAHJCR4808-69-08 12:29:00 Test Item Value Reference Range Interpretation Comments RDW (test code = RDW) 12.5 11.5-14.5 [facility] CenterFmlynriOTLYOXAPXT2102-12-95 12:29:00 Test Item Value Reference Range Interpretation Comments Platelet (test code = Platelet) 165 133-450 [facility] CenterCqaboqrABTAZHIHFG5233-17-15 12:29:00 Test Item Value Reference Range Interpretation Comments MPV (test code = MPV) 9.0 7.4-10.4 [facility] CenterDoakcdjNWWNASPRIT2145-59-96 12:29:00 Test Item Value Reference Range Interpretation Comments Segs (test code = Segs) 48.2 45.0-75.0 [place] [address]960-11-22 12:29:00 Test Item Value Reference Range Interpretation Comments Lymphocytes (test code = Lymphocytes) 40.5 20.0-40.0 [place] 235960-11-22 12:29:00 Test Item Value Reference Range Interpretation Comments Monocytes (test code = Monocytes) 6.8 2.0-12.0 [place] 235960-11-22 12:29:00 Test Item Value Reference Range Interpretation Comments Eosinophils (test code = 3.5 See_Comment [A utomated message] The Eosinophils) system which ge nerated this result tra nsmitted reference range : <=4.0. The reference r daniel was not used to int erpret this result as normal/abnormal . [place] [address]-11-22 12:29:00 Test Item Value Reference Range Interpretation Comments Basophils (test code = 1.0 See_Comment [Aut omated message] The Basophils) system which ge nerated this result tra nsmitted reference range : <=1.0. The reference r daniel was not used to int erpret this result as normal/abnormal . [place] [address]960-11-22 12:29:00 Test Item Value Reference Range Interpretation Comments Neutrophils # (test code = Neutrophils 1.8 1.5-8.1 #) [place] 235960-11-22 12:29:00 Test Item Value Reference Range Interpretation Comments Lymphocytes # (test code = Lymphocytes 1.5 1.0-5.5 #) [place] [address]960-11-22 12:29:00 Test Item Value Reference Range Interpretation Comments Monocytes # (test code 0.3 See_Comment [Aut omated message] The = Monocytes #) system which generated this result tra nsmitted reference range : <=0.8. The reference r daniel was not used to int erpret this result as normal/abnormal . [place] [address]960-11-22 12:29:00 Test Item Value Reference Range Interpretation Comments Eosinophils # (test code 0.1 See_Comment [A utomated message] The = Eosinophils #) system whic h generated this result tra nsmitted reference range : <=0.5. The reference r daniel was not used to int erpret this result as normal/abnormal . [facility] [id number] 12:29:00 Test Item Value Reference Range Interpretation Comments Total Protein (test code = Total 6.0 6.4-8.4 Protein) [place] [address]-11-22 12:29:00 Test Item Value Reference Range Interpretation Comments Albumin Lvl (test code = Albumin Lvl) 3.1 3.5-5.0 [place] 447990-11-22 12:29:00 Test Item Value Reference Range Interpretation Comments ALT (test code = ALT) 207 See_Comment [Auto mated message] The system which ge nerated this result transmit jeremías reference range : <=65. The reference range was not used to interpr et this result as vernell l/abnormal. [facility] [id number] 12:29:00 Test Item Value Reference Range Interpretation Comments AST (test code = AST) 100 See_Comment [Auto mated message] The system which ge nerated this result transmit jeremías reference range : <=37. The reference range was not used to interpr et this result as vernell l/abnormal. [facility] [id number] 12:29:00 Test Item Value Reference Range Interpretation Comments Alk Phos (test code = Alk Phos) 133 39-[address] [facility] [id number] 12:29:00 Test Item Value Reference Range Interpretation Comments Bili Total (test code = Bili Total) 1.1 0.2-1.3 [place] [address]-11-22 12:29:00 Test Item Value Reference Range Interpretation Comments Bili Direct (test code 0.3 See_Comment [Aut omated message] The = Bili Direct) system which generated this result tra nsmitted reference range : <=0.3. The reference r daniel was not used to int erpret this result as vernell l/abnormal. [facility] [id number] 12:29:00 Test Item Value Reference Range Interpretation Comments Bili Indirect (test 0.8 See_Comment [Automa jeremías message] The code = Bili Indirect) system which generated this result tra nsmitted reference range : <=1.0. The reference r daniel was not used to int erpret this result as normal/abnormal . [facility]2020-11-22 12:29:00 Test Item Value Reference Range Interpretation Comments Globulin (test code = Globulin) 2.9 2.7-4.2 [place] 447990-11-22 12:29:00 Test Item Value Reference Range Interpretation Comments A/G Ratio (test code = A/G Ratio) 1.1 1 0.7-1.6 [place] 447990-11-22 12:29:00 Test Item Value Reference Range Interpretation Comments Glucose Lvl (test code = Glucose Lvl) 79 70-99 [facility]2020-11-22 12:29:00 Test Item Value Reference Range Interpretation Comments BUN (test code = BUN) 5 7-22 [facility]2020-11-22 12:29:00 Test Item Value Reference Range Interpretation Comments Creatinine Lvl (test code = Creatinine 0.42 0.50-1.40 Lvl) [facility]2020-11-22 12:29:00 Test Item Value Reference Range Interpretation Comments Sodium Lvl (test code = Sodium Lvl) 137 135-145 [facility]2020-11-22 12:29:00 Test Item Value Reference Range Interpretation Comments Potassium Lvl (test code = Potassium 3.9 3.5-5.1 Lvl) [facility]2020-11-22 12:29:00 Test Item Value Reference Range Interpretation Comments Chloride Lvl (test code = Chloride Lvl) 110 95-109 [facility]2020-11-22 12:29:00 Test Item Value Reference Range Interpretation Comments CO2 (test code = CO2) 23 24-32 [place] 447990-11-22 12:29:00 Test Item Value Reference Range Interpretation Comments Calcium Lvl (test code = Calcium Lvl) 8.5 8.5-10.5 [place] 447990-11-22 12:29:00 Test Item Value Reference Range Interpretation Comments AGAP (test code = AGAP) 7.9 10.0-20.0 [place] 447990-11-22 12:29:00 Test Item Value Reference Range Interpretation Comments eGFR (test code = eGFR) 136 [facility] CenterYivqzegCWOFFFKXDI9299-28-89 12:29:00 Test Item Value Reference Range Interpretation Comments PT (test code = PT) 15.5 s 12.0-14.7 [facility] CenterDnflsuzHQRIHFWUPO3520-18-77 12:29:00 Test Item Value Reference Range Interpretation Comments INR (test code = INR) 1.22 1 0.85-1.17 [facility] CenterRbtjafuKOLNSBQRZC9306-52-73 12:29:00 Test Item Value Reference Range Interpretation Comments WBC (test code = WBC) 3.7 3.7-10.4 [facility] CenterTnynnwwRIAPNLXPWQ0104-70-82 12:29:00 Test Item Value Reference Range Interpretation Comments RBC (test code = RBC) 3.57 4.20-5.40 [facility] CenterEzwqfioYFCOMBQKPV0908-21-08 12:29:00 Test Item Value Reference Range Interpretation Comments Hgb (test code = Hgb) 11.1 12.0-16.0 [facility] CenterCgjgoaiNNVTUHKCPZ0835-22-58 12:29:00 Test Item Value Reference Range Interpretation Comments Hct (test code = Hct) 32.9 36.0-48.0 [facility] CenterAyqbpikCVIESSSMRU4107-48-45 12:29:00 Test Item Value Reference Range Interpretation Comments MCV (test code = MCV) 92.0 80.0-98.0 [facility] CenterXwugueqLGNTNLENXZ2909-79-16 12:29:00 Test Item Value Reference Range Interpretation Comments MCH (test code = MCH) 30.9 pg 27.0-31.0 [facility] CenterAdqewxyUXIHQIEKBC9946-14-24 12:29:00 Test Item Value Reference Range Interpretation Comments MCHC (test code = MCHC) 33.6 32.0-36.0 [facility] CenterNdclfghSDZQXKJCZF8739-85-14 12:29:00 Test Item Value Reference Range Interpretation Comments RDW (test code = RDW) 12.5 11.5-14.5 [facility] CenterCjqmrpqXUJFCLPBVZ0341-04-55 12:29:00 Test Item Value Reference Range Interpretation Comments Platelet (test code = Platelet) 165 133-450 [facility] CenterQpnwtrzVSWRVIXSBD1229-03-98 12:29:00 Test Item Value Reference Range Interpretation Comments MPV (test code = MPV) 9.0 7.4-10.4 [facility] CenterYsmqkyuWISSJEEVLQ6348-44-83 12:29:00 Test Item Value Reference Range Interpretation Comments Segs (test code = Segs) 48.2 45.0-75.0 [place] 235960-11-22 12:29:00 Test Item Value Reference Range Interpretation Comments Lymphocytes (test code = Lymphocytes) 40.5 20.0-40.0 [place] 235960-11-22 12:29:00 Test Item Value Reference Range Interpretation Comments Monocytes (test code = Monocytes) 6.8 2.0-12.0 [place] 235960-11-22 12:29:00 Test Item Value Reference Range Interpretation Comments Eosinophils (test code = 3.5 See_Comment [A utomated message] The Eosinophils) system which ge nerated this result tra nsmitted reference range : <=4.0. The reference r daniel was not used to int erpret this result as normal/abnormal . [place] 235960-11-22 12:29:00 Test Item Value Reference Range Interpretation Comments Basophils (test code = 1.0 See_Comment [Aut omated message] The Basophils) system which ge nerated this result tra nsmitted reference range : <=1.0. The reference r daniel was not used to int erpret this result as normal/abnormal . [facility] CenterVqxvgytKGLJBHVFYM2647-18-75 12:29:00 Test Item Value Reference Range Interpretation Comments Neutrophils # (test code = Neutrophils 1.8 1.5-8.1 #) [facility] CenterThzdbloTITLCYWTPG6585-24-84 12:29:00 Test Item Value Reference Range Interpretation Comments Lymphocytes # (test code = Lymphocytes 1.5 1.0-5.5 #) [facility] CenterOgwlrlsCNTEISQAKY8011-53-22 12:29:00 Test Item Value Reference Range Interpretation Comments Monocytes # (test code 0.3 See_Comment [Aut omated message] The = Monocytes #) system which generated this result tra nsmitted reference range : <=0.8. The reference r daniel was not used to int erpret this result as normal/abnormal . [place] 235960-11-22 12:29:00 Test Item Value Reference Range Interpretation Comments Eosinophils # (test code 0.1 See_Comment [A utomated message] The = Eosinophils #) system whic h generated this result tra nsmitted reference range : <=0.5. The reference r daniel was not used to int erpret this result as normal/abnormal . [facility]2020-11-22 12:29:00 Test Item Value Reference Range Interpretation Comments Total Protein (test code = Total 6.0 6.4-8.4 Protein) [place] [address]-11-22 12:29:00 Test Item Value Reference Range Interpretation Comments Albumin Lvl (test code = Albumin Lvl) 3.1 3.5-5.0 [place] [address]-11-22 12:29:00 Test Item Value Reference Range Interpretation Comments ALT (test code = ALT) 207 See_Comment [Auto mated message] The system which ge nerated this result transmit jeremías reference range : <=65. The reference range was not used to interpr et this result as vernell l/abnormal. [facility] [id number] 12:29:00 Test Item Value Reference Range Interpretation Comments AST (test code = AST) 100 See_Comment [Auto mated message] The system which ge nerated this result transmit jeremías reference range : <=37. The reference range was not used to interpr et this result as vernell l/abnormal. [facility] [id number] 12:29:00 Test Item Value Reference Range Interpretation Comments Alk Phos (test code = Alk Phos) 133 39-136 [facility] [id number] 12:29:00 Test Item Value Reference Range Interpretation Comments Bili Total (test code = Bili Total) 1.1 0.2-1.[address] [facility] [id number] 12:29:00 Test Item Value Reference Range Interpretation Comments Bili Direct (test code 0.3 See_Comment [Aut omated message] The = Bili Direct) system which generated this result tra nsmitted reference range : <=0.3. The reference r daniel was not used to int erpret this result as vernell l/abnormal. [facility] [id number] 12:29:00 Test Item Value Reference Range Interpretation Comments Bili Indirect (test 0.8 See_Comment [Automa jeremías message] The code = Bili Indirect) system which generated this result tra nsmitted reference range : <=1.0. The reference r daniel was not used to int erpret this result as normal/abnormal . [facility] [employer] [id number] 12:29:00 Test Item Value Reference Range Interpretation Comments Globulin (test code = Globulin) 2.9 2.7-4.2 [facility]2020-11-22 12:29:00 Test Item Value Reference Range Interpretation Comments A/G Ratio (test code = A/G Ratio) 1.1 1 0.7-1.6 [place] 447990-11-22 12:29:00 Test Item Value Reference Range Interpretation Comments Glucose Lvl (test code = Glucose Lvl) 79 70-99 [place] 447990-11-22 12:29:00 Test Item Value Reference Range Interpretation Comments BUN (test code = BUN) 5 7-22 [place] 447990-11-22 12:29:00 Test Item Value Reference Range Interpretation Comments Creatinine Lvl (test code = Creatinine 0.42 0.50-1.40 Lvl) [facility]2020-11-22 12:29:00 Test Item Value Reference Range Interpretation Comments Sodium Lvl (test code = Sodium Lvl) 137 135-145 [facility]2020-11-22 12:29:00 Test Item Value Reference Range Interpretation Comments Potassium Lvl (test code = Potassium 3.9 3.5-5.1 Lvl) [facility]2020-11-22 12:29:00 Test Item Value Reference Range Interpretation Comments Chloride Lvl (test code = Chloride Lvl) 110 95-109 [facility]2020-11-22 12:29:00 Test Item Value Reference Range Interpretation Comments CO2 (test code = CO2) 23 24-32 [facility]2020-11-22 12:29:00 Test Item Value Reference Range Interpretation Comments Calcium Lvl (test code = Calcium Lvl) 8.5 8.5-10.5 [place] 447990-11-22 12:29:00 Test Item Value Reference Range Interpretation Comments AGAP (test code = AGAP) 7.9 10.0-20.0 [facility]2020-11-22 12:29:00 Test Item Value Reference Range Interpretation Comments eGFR (test code = eGFR) 136 [place] 235960-11-22 12:29:00 Test Item Value Reference Range Interpretation Comments PT (test code = PT) 15.5 s 12.0-14.7 [place] 235960-11-22 12:29:00 Test Item Value Reference Range Interpretation Comments INR (test code = INR) 1.22 1 0.85-1.17 [facility] CenterErleahbLHXFMLJODU6375-68-38 12:29:00 Test Item Value Reference Range Interpretation Comments WBC (test code = WBC) 3.7 3.7-10.4 [facility] CenterKglknjhNKYIHJAIYQ7907-64-12 12:29:00 Test Item Value Reference Range Interpretation Comments RBC (test code = RBC) 3.57 4.20-5.40 [facility] CenterYcvbnnzYAIOBRHVLU2714-14-93 12:29:00 Test Item Value Reference Range Interpretation Comments Hgb (test code = Hgb) 11.1 12.0-16.0 [facility] CenterWhnmdnqXFLJGWMHIY0347-62-06 12:29:00 Test Item Value Reference Range Interpretation Comments Hct (test code = Hct) 32.9 36.0-48.0 [facility] CenterDxzvxyiRHAUPKZCER4649-03-27 12:29:00 Test Item Value Reference Range Interpretation Comments MCV (test code = MCV) 92.0 80.0-98.0 [facility] CenterHgiyltlWSWTGNVGRB5357-79-02 12:29:00 Test Item Value Reference Range Interpretation Comments MCH (test code = MCH) 30.9 pg 27.0-31.0 [facility] CenterVjragkzIDLLFJKECT1195-76-67 12:29:00 Test Item Value Reference Range Interpretation Comments MCHC (test code = MCHC) 33.6 32.0-36.0 [facility] CenterPlvcikoMTPTUXQSKN5745-65-82 12:29:00 Test Item Value Reference Range Interpretation Comments RDW (test code = RDW) 12.5 11.5-14.5 [facility] CenterGjemodaPUUAKWFUUN0373-89-09 12:29:00 Test Item Value Reference Range Interpretation Comments Platelet (test code = Platelet) 165 133-450 [facility] CenterKnuwcakOQPQXVIQNC0540-84-18 12:29:00 Test Item Value Reference Range Interpretation Comments MPV (test code = MPV) 9.0 7.4-10.4 [facility] CenterMptfjnuOAMNBJXXFO9362-81-17 12:29:00 Test Item Value Reference Range Interpretation Comments Segs (test code = Segs) 48.2 45.0-75.0 [facility] CenterRsbabqkMCWEPTKVKA0726-67-46 12:29:00 Test Item Value Reference Range Interpretation Comments Lymphocytes (test code = Lymphocytes) 40.5 20.0-40.0 [facility] CenterRjzgumgHMWSJODOQP6530-83-07 12:29:00 Test Item Value Reference Range Interpretation Comments Monocytes (test code = Monocytes) 6.8 2.0-12.0 [facility] CenterYjevdmeYAQNXFUUCT3834-66-32 12:29:00 Test Item Value Reference Range Interpretation Comments Eosinophils (test code = 3.5 See_Comment [A utomated message] The Eosinophils) system which ge nerated this result tra nsmitted reference range : <=4.0. The reference r daniel was not used to int erpret this result as normal/abnormal . [facility] CenterDvldjkjOGEOFGYLIB5776-16-03 12:29:00 Test Item Value Reference Range Interpretation Comments Basophils (test code = 1.0 See_Comment [Aut omated message] The Basophils) system which ge nerated this result tra nsmitted reference range : <=1.0. The reference r daniel was not used to int erpret this result as normal/abnormal . [facility] CenterJqinbcrYKTMFGJLUJ8820-45-77 12:29:00 Test Item Value Reference Range Interpretation Comments Neutrophils # (test code = Neutrophils 1.8 1.5-8.1 #) [facility] CenterJhttcamKCRFFMNWZK1604-63-92 12:29:00 Test Item Value Reference Range Interpretation Comments Lymphocytes # (test code = Lymphocytes 1.5 1.0-5.5 #) [facility] CenterDemdekwAPQXEBYBBY5387-42-25 12:29:00 Test Item Value Reference Range Interpretation Comments Monocytes # (test code 0.3 See_Comment [Aut omated message] The = Monocytes #) system which generated this result tra nsmitted reference range : <=0.8. The reference r daniel was not used to int erpret this result as normal/abnormal . [facility] CenterSzmrclnSMJLYLUOAY9951-61-99 12:29:00 Test Item Value Reference Range Interpretation Comments Eosinophils # (test code 0.1 See_Comment [A utomated message] The = Eosinophils #) system whic h generated this result tra nsmitted reference range : <=0.5. The reference r daniel was not used to int erpret this result as normal/abnormal . [facility]2020-11-22 12:29:00 Test Item Value Reference Range Interpretation Comments Total Protein (test code = Total 6.0 6.4-8.4 Protein) [facility] [id number] 12:29:00 Test Item Value Reference Range Interpretation Comments Albumin Lvl (test code = Albumin Lvl) 3.1 3.5-5.0 [facility] [id number] 12:29:00 Test Item Value Reference Range Interpretation Comments ALT (test code = ALT) 207 See_Comment [Auto mated message] The system which ge nerated this result transmit jeremías reference range : <=65. The reference range was not used to interpr et this result as evrnell l/abnormal. [facility] [employer] [id number] 12:29:00 Test Item Value Reference Range Interpretation Comments AST (test code = AST) 100 See_Comment [Auto mated message] The system which ge nerated this result transmit jeremías reference range : <=37. The reference range was not used to interpr et this result as vernell l/abnormal. [facility] [employer] [id number] 12:29:00 Test Item Value Reference Range Interpretation Comments Alk Phos (test code = Alk Phos) 133 39-136 [facility] [employer] [id number] 12:29:00 Test Item Value Reference Range Interpretation Comments Bili Total (test code = Bili Total) 1.1 0.2-1.3 [facility] [employer] [id number] 12:29:00 Test Item Value Reference Range Interpretation Comments Bili Direct (test code 0.3 See_Comment [Aut omated message] The = Bili Direct) system which generated this result tra nsmitted reference range : <=0.3. The reference r daniel was not used to int erpret this result as vernell l/abnormal. [facility] [employer] [id number] 12:29:00 Test Item Value Reference Range Interpretation Comments Bili Indirect (test 0.8 See_Comment [Automa jeremías message] The code = Bili Indirect) system which generated this result tra nsmitted reference range : <=1.0. The reference r daniel was not used to int erpret this result as normal/abnormal . [facility] [employer] [id number] 12:29:00 Test Item Value Reference Range Interpretation Comments Globulin (test code = Globulin) 2.9 2.7-4.2 [place] 447990-11-22 12:29:00 Test Item Value Reference Range Interpretation Comments A/G Ratio (test code = A/G Ratio) 1.1 1 0.7-1.6 [place] 447990-11-22 12:29:00 Test Item Value Reference Range Interpretation Comments Glucose Lvl (test code = Glucose Lvl) 79 70-99 [place] 447990-11-22 12:29:00 Test Item Value Reference Range Interpretation Comments BUN (test code = BUN) 5 7-22 [place] 447990-11-22 12:29:00 Test Item Value Reference Range Interpretation Comments Creatinine Lvl (test code = Creatinine 0.42 0.50-1.40 Lvl) [place] 447990-11-22 12:29:00 Test Item Value Reference Range Interpretation Comments Sodium Lvl (test code = Sodium Lvl) 137 135-145 [place] 447990-11-22 12:29:00 Test Item Value Reference Range Interpretation Comments Potassium Lvl (test code = Potassium 3.9 3.5-5.1 Lvl) [place] 447990-11-22 12:29:00 Test Item Value Reference Range Interpretation Comments Chloride Lvl (test code = Chloride Lvl) 110 95-109 [place] 447990-11-22 12:29:00 Test Item Value Reference Range Interpretation Comments CO2 (test code = CO2) 23 24-32 [place] 447990-11-22 12:29:00 Test Item Value Reference Range Interpretation Comments Calcium Lvl (test code = Calcium Lvl) 8.5 8.5-10.5 [place] 447990-11-22 12:29:00 Test Item Value Reference Range Interpretation Comments AGAP (test code = AGAP) 7.9 10.0-20.0 [place] 447990-11-22 12:29:00 Test Item Value Reference Range Interpretation Comments eGFR (test code = eGFR) 136 [facility]swvbtvRJVBCZJXMA5342-61-32 12:29:00 Test Item Value Reference Range Interpretation Comments PT (test code = PT) 15.5 s 12.0-14.7 [place] 235960-11-22 12:29:00 Test Item Value Reference Range Interpretation Comments INR (test code = INR) 1.22 1 0.85-1.17 [facility]URCKHVHGY9069[facility] 12:29:00 Test Item Value Reference Range Interpretation Comments WBC (test code = WBC) 3.7 3.7-10.4 [facility] MichiganJmtohmyUPJIBXLIKI4430-81-35 12:29:00 Test Item Value Reference Range Interpretation Comments RBC (test code = RBC) 3.57 4.20-5.40 [facility] MichiganKzdnhoeEZQSWKJUFM4778-13-84 12:29:00 Test Item Value Reference Range Interpretation Comments Hgb (test code = Hgb) 11.1 12.0-16.0 [facility] CenterRrioijkHRZFFSOXGW9582-53-76 12:29:00 Test Item Value Reference Range Interpretation Comments Hct (test code = Hct) 32.9 36.0-48.0 [facility] CenterUynqpljYTYDVXLXPZ1803-84-16 12:29:00 Test Item Value Reference Range Interpretation Comments MCV (test code = MCV) 92.0 80.0-98.0 [facility] CenterXxhcnfaQMLNVRBZMM1152-33-20 12:29:00 Test Item Value Reference Range Interpretation Comments MCH (test code = MCH) 30.9 pg 27.0-31.0 [facility] CenterPhzzbszHXZVUEWNKU5379-22-36 12:29:00 Test Item Value Reference Range Interpretation Comments MCHC (test code = MCHC) 33.6 32.0-36.0 [facility] CenterZogpzzlFMDTELTNBZ7392-33-90 12:29:00 Test Item Value Reference Range Interpretation Comments RDW (test code = RDW) 12.5 11.5-14.5 [facility] MichiganNoyqzfxYJEQRUZYRO9393-29-86 12:29:00 Test Item Value Reference Range Interpretation Comments Platelet (test code = Platelet) 165 133-450 [facility] CenterVxgnlixWCUQXNGQFG2868-16-34 12:29:00 Test Item Value Reference Range Interpretation Comments MPV (test code = MPV) 9.0 7.4-10.4 [facility] CenterUxpetroANWFMWSHUJ1141-02-68 12:29:00 Test Item Value Reference Range Interpretation Comments Segs (test code = Segs) 48.2 45.0-75.0 [facility] CenterBqbvicqWNKPCHIIKL5359-91-25 12:29:00 Test Item Value Reference Range Interpretation Comments Lymphocytes (test code = Lymphocytes) 40.5 20.0-40.0 [place] 235960-11-22 12:29:00 Test Item Value Reference Range Interpretation Comments Monocytes (test code = Monocytes) 6.8 2.0-12.0 [facility] CenterQkzfdipJNANGYABAX6644-26-93 12:29:00 Test Item Value Reference Range Interpretation Comments Eosinophils (test code = 3.5 See_Comment [A utomated message] The Eosinophils) system which ge nerated this result tra nsmitted reference range : <=4.0. The reference r daniel was not used to int erpret this result as normal/abnormal . [place] 235960-11-22 12:29:00 Test Item Value Reference Range Interpretation Comments Basophils (test code = 1.0 See_Comment [Aut omated message] The Basophils) system which ge nerated this result tra nsmitted reference range : <=1.0. The reference r daniel was not used to int erpret this result as normal/abnormal . [facility] CenterGpvednfZIWJRJTXPG4914-21-88 12:29:00 Test Item Value Reference Range Interpretation Comments Neutrophils # (test code = Neutrophils 1.8 1.5-8.1 #) [facility] CenterDqzzrmtLYRZAZIFWB3632-96-44 12:29:00 Test Item Value Reference Range Interpretation Comments Lymphocytes # (test code = Lymphocytes 1.5 1.0-5.5 #) [facility] CenterRyczdlwYYLAEMCGZN0752-84-20 12:29:00 Test Item Value Reference Range Interpretation Comments Monocytes # (test code 0.3 See_Comment [Aut omated message] The = Monocytes #) system which generated this result tra nsmitted reference range : <=0.8. The reference r daniel was not used to int erpret this result as normal/abnormal . [facility] HospitalQpnpswfHSWKWTPKUF8072-41-61 12:29:00 Test Item Value Reference Range Interpretation Comments Eosinophils # (test code 0.1 See_Comment [A utomated message] The = Eosinophils #) system whic h generated this result tra nsmitted reference range : <=0.5. The reference r daniel was not used to int erpret this result as normal/abnormal . [facility] HospitalCorniceVZTXU7707-44-50 12:29:00 Test Item Value Reference Range Interpretation Comments Total Protein (test code = Total 6.0 6.4-8.4 Protein) [facility] H[id number] 12:29:00 Test Item Value Reference Range Interpretation Comments Albumin Lvl (test code = Albumin Lvl) 3.1 3.5-5.0 [place] [address]-11-22 12:29:00 Test Item Value Reference Range Interpretation Comments ALT (test code = ALT) 207 See_Comment [Auto mated message] The system which ge nerated this result transmit jeremías reference range : <=65. The reference range was not used to interpr et this result as vernell l/abnormal. [facility] [id number] 12:29:00 Test Item Value Reference Range Interpretation Comments AST (test code = AST) 100 See_Comment [Auto mated message] The system which ge nerated this result transmit jeremías reference range : <=37. The reference range was not used to interpr et this result as vernell l/abnormal. [facility] [id number] 12:29:00 Test Item Value Reference Range Interpretation Comments Alk Phos (test code = Alk Phos) 133 39-136 [facility] [id number] 12:29:00 Test Item Value Reference Range Interpretation Comments Bili Total (test code = Bili Total) 1.1 0.2-1.3 [facility] [id number] 12:29:00 Test Item Value Reference Range Interpretation Comments Bili Direct (test code 0.3 See_Comment [Aut omated message] The = Bili Direct) system which generated this result tra nsmitted reference range : <=0.3. The reference r daniel was not used to int erpret this result as vernell l/abnormal. [facility] [id number] 12:29:00 Test Item Value Reference Range Interpretation Comments Bili Indirect (test 0.8 See_Comment [Automa jeremías message] The code = Bili Indirect) system which generated this result tra nsmitted reference range : <=1.0. The reference r daniel was not used to int erpret this result as normal/abnormal . [facility] [id number] 12:29:00 Test Item Value Reference Range Interpretation Comments Globulin (test code = Globulin) 2.9 2.7-4.2 [facility] [employer] [id number] 12:29:00 Test Item Value Reference Range Interpretation Comments A/G Ratio (test code = A/G Ratio) 1.1 1 0.7-1.6 [place] 447990-11-22 12:29:00 Test Item Value Reference Range Interpretation Comments Glucose Lvl (test code = Glucose Lvl) 79 70-99 [place] 447990-11-22 12:29:00 Test Item Value Reference Range Interpretation Comments BUN (test code = BUN) 5 7-22 [place] 447990-11-22 12:29:00 Test Item Value Reference Range Interpretation Comments Creatinine Lvl (test code = Creatinine 0.42 0.50-1.40 Lvl) [place] 447990-11-22 12:29:00 Test Item Value Reference Range Interpretation Comments Sodium Lvl (test code = Sodium Lvl) 137 135-145 [place] 447990-11-22 12:29:00 Test Item Value Reference Range Interpretation Comments Potassium Lvl (test code = Potassium 3.9 3.5-5.1 Lvl) [place] 447990-11-22 12:29:00 Test Item Value Reference Range Interpretation Comments Chloride Lvl (test code = Chloride Lvl) 110 95-109 [place] 447990-11-22 12:29:00 Test Item Value Reference Range Interpretation Comments CO2 (test code = CO2) 23 24-32 [facility]2020-11-22 12:29:00 Test Item Value Reference Range Interpretation Comments Calcium Lvl (test code = Calcium Lvl) 8.5 8.5-10.5 [place] 447990-11-22 12:29:00 Test Item Value Reference Range Interpretation Comments AGAP (test code = AGAP) 7.9 10.0-20.0 [place] 447990-11-22 12:29:00 Test Item Value Reference Range Interpretation Comments eGFR (test code = eGFR) 136 [facility] CenterNfuxetnLVPHHMLMCT2537-40-37 12:29:00 Test Item Value Reference Range Interpretation Comments PT (test code = PT) 15.5 s 12.0-14.7 [place] 235960-11-22 12:29:00 Test Item Value Reference Range Interpretation Comments INR (test code = INR) 1.22 1 0.85-1.17 [place] 235960-11-22 12:29:00 Test Item Value Reference Range Interpretation Comments WBC (test code = WBC) 3.7 3.7-10.4 [facility] CenterJyrmgrtPRAUSFUWIV3563-84-41 12:29:00 Test Item Value Reference Range Interpretation Comments RBC (test code = RBC) 3.57 4.20-5.40 [facility] CenterZisbkctIKRYKIIQCN4542-71-93 12:29:00 Test Item Value Reference Range Interpretation Comments Hgb (test code = Hgb) 11.1 12.0-16.0 [facility] CenterOgwxtcrCECSLPKJDN0425-71-76 12:29:00 Test Item Value Reference Range Interpretation Comments Hct (test code = Hct) 32.9 36.0-48.0 [facility] CenterCwjtxrqMZUHRDFYZC4541-84-45 12:29:00 Test Item Value Reference Range Interpretation Comments MCV (test code = MCV) 92.0 80.0-98.0 [facility] CenterQfduodjMADJYXHJWY3602-57-64 12:29:00 Test Item Value Reference Range Interpretation Comments MCH (test code = MCH) 30.9 pg 27.0-31.0 [facility] CenterGfdyhbiVNZVZKPZUW3349-47-30 12:29:00 Test Item Value Reference Range Interpretation Comments MCHC (test code = MCHC) 33.6 32.0-36.0 [facility] CenterVdzzcgvTAPQHLMFKH5273-17-83 12:29:00 Test Item Value Reference Range Interpretation Comments RDW (test code = RDW) 12.5 11.5-14.5 [facility] CenterRciupwtHLIUEAKTPG2618-91-20 12:29:00 Test Item Value Reference Range Interpretation Comments Platelet (test code = Platelet) 165 133-450 [facility] CenterSipyxmlNYKLVWTDBR4443-58-25 12:29:00 Test Item Value Reference Range Interpretation Comments MPV (test code = MPV) 9.0 7.4-10.4 [facility] CenterQvwvfzfNDZVYCMBQY6955-29-65 12:29:00 Test Item Value Reference Range Interpretation Comments Segs (test code = Segs) 48.2 45.0-75.0 [facility] CenterUunyfotYMZBCVQJTR0193-02-13 12:29:00 Test Item Value Reference Range Interpretation Comments Lymphocytes (test code = Lymphocytes) 40.5 20.0-40.0 [facility] CenterRwggrqvVFLJYWARVO4075-10-27 12:29:00 Test Item Value Reference Range Interpretation Comments Monocytes (test code = Monocytes) 6.8 2.0-12.0 [place] 235960-11-22 12:29:00 Test Item Value Reference Range Interpretation Comments Eosinophils (test code = 3.5 See_Comment [A utomated message] The Eosinophils) system which ge nerated this result tra nsmitted reference range : <=4.0. The reference r daniel was not used to int erpret this result as normal/abnormal . [facility] HospitalDhstgipLJWKXLJHWO9724-54-56 12:29:00 Test Item Value Reference Range Interpretation Comments Basophils (test code = 1.0 See_Comment [Aut omated message] The Basophils) system which ge nerated this result tra nsmitted reference range : <=1.0. The reference r daniel was not used to int erpret this result as normal/abnormal . [facility] CenterYqhdqbhBOUNXUKFQX8774-86-69 12:29:00 Test Item Value Reference Range Interpretation Comments Neutrophils # (test code = Neutrophils 1.8 1.5-8.1 #) [facility] CenterZlwjjttBFQSPDKULW2069-68-53 12:29:00 Test Item Value Reference Range Interpretation Comments Lymphocytes # (test code = Lymphocytes 1.5 1.0-5.5 #) [facility] CenterEbmsjmhGKNFVLSAOM5868-59-36 12:29:00 Test Item Value Reference Range Interpretation Comments Monocytes # (test code 0.3 See_Comment [Aut omated message] The = Monocytes #) system which generated this result tra nsmitted reference range : <=0.8. The reference r daniel was not used to int erpret this result as normal/abnormal . [facility] HospitalQruruzqLHWYZSJUVO8625-64-59 12:29:00 Test Item Value Reference Range Interpretation Comments Eosinophils # (test code 0.1 See_Comment [A utomated message] The = Eosinophils #) system whic h generated this result tra nsmitted reference range : <=0.5. The reference r daniel was not used to int erpret this result as normal/abnormal . [facility] HospitalCorniceSSGNV6653-13-32 12:29:00 Test Item Value Reference Range Interpretation Comments Total Protein (test code = Total 6.0 6.4-8.4 Protein) [facility] HospitalFlowPlay [id number] 12:29:00 Test Item Value Reference Range Interpretation Comments Albumin Lvl (test code = Albumin Lvl) 3.1 3.5-5.0 [facility] [employer] [id number] 12:29:00 Test Item Value Reference Range Interpretation Comments ALT (test code = ALT) 207 See_Comment [Auto mated message] The system which ge nerated this result transmit jeremías reference range : <=65. The reference range was not used to interpr et this result as vernell l/abnormal. [facility] [employer] [id number] 12:29:00 Test Item Value Reference Range Interpretation Comments AST (test code = AST) 100 See_Comment [Auto mated message] The system which ge nerated this result transmit jeremías reference range : <=37. The reference range was not used to interpr et this result as vernell l/abnormal. [facility] [employer] [id number] 12:29:00 Test Item Value Reference Range Interpretation Comments Alk Phos (test code = Alk Phos) 133 39-136 [facility] [employer] [id number] 12:29:00 Test Item Value Reference Range Interpretation Comments Bili Total (test code = Bili Total) 1.1 0.2-1.3 [facility] [employer] [id number] 12:29:00 Test Item Value Reference Range Interpretation Comments Bili Direct (test code 0.3 See_Comment [Aut omated message] The = Bili Direct) system which generated this result tra nsmitted reference range : <=0.3. The reference r daniel was not used to int erpret this result as vernell l/abnormal. [facility] [employer] [id number] 12:29:00 Test Item Value Reference Range Interpretation Comments Bili Indirect (test 0.8 See_Comment [Automa jeremías message] The code = Bili Indirect) system which generated this result tra nsmitted reference range : <=1.0. The reference r daniel was not used to int erpret this result as normal/abnormal . [facility] [employer] [id number] 12:29:00 Test Item Value Reference Range Interpretation Comments Globulin (test code = Globulin) 2.9 2.7-4.2 [facility] [employer] [id number] 12:29:00 Test Item Value Reference Range Interpretation Comments A/G Ratio (test code = A/G Ratio) 1.1 1 0.7-1.6 [place] [address]-11-22 12:29:00 Test Item Value Reference Range Interpretation Comments Glucose Lvl (test code = Glucose Lvl) 79 70-99 [place] 447990-11-22 12:29:00 Test Item Value Reference Range Interpretation Comments BUN (test code = BUN) 5 7-22 [place] 447990-11-22 12:29:00 Test Item Value Reference Range Interpretation Comments Creatinine Lvl (test code = Creatinine 0.42 0.50-1.40 Lvl) [place] 447990-11-22 12:29:00 Test Item Value Reference Range Interpretation Comments Sodium Lvl (test code = Sodium Lvl) 137 135-145 [place] 447990-11-22 12:29:00 Test Item Value Reference Range Interpretation Comments Potassium Lvl (test code = Potassium 3.9 3.5-5.1 Lvl) [place] 447990-11-22 12:29:00 Test Item Value Reference Range Interpretation Comments Chloride Lvl (test code = Chloride Lvl) 110 95-109 [place] 447990-11-22 12:29:00 Test Item Value Reference Range Interpretation Comments CO2 (test code = CO2) 23 24-32 [place] 447990-11-22 12:29:00 Test Item Value Reference Range Interpretation Comments Calcium Lvl (test code = Calcium Lvl) 8.5 8.5-10.5 [place] 447990-11-22 12:29:00 Test Item Value Reference Range Interpretation Comments AGAP (test code = AGAP) 7.9 10.0-20.0 [place] 447990-11-22 12:29:00 Test Item Value Reference Range Interpretation Comments eGFR (test code = eGFR) 136 [place] 235960-11-22 12:29:00 Test Item Value Reference Range Interpretation Comments PT (test code = PT) 15.5 s 12.0-14.7 [place] 235960-11-22 12:29:00 Test Item Value Reference Range Interpretation Comments INR (test code = INR) 1.22 1 0.85-1.17 [place] 235960-11-22 12:29:00 Test Item Value Reference Range Interpretation Comments WBC (test code = WBC) 3.7 3.7-10.4 [facility] CenterXqvizraEUMTRIMGDP7760-35-71 12:29:00 Test Item Value Reference Range Interpretation Comments RBC (test code = RBC) 3.57 4.20-5.40 [facility]BllqfhcXGFBOUHKND2942-17-33 12:29:00 Test Item Value Reference Range Interpretation Comments Hgb (test code = Hgb) 11.1 12.0-16.0 [facility] CenterZvuohxyOHYRJMERFI6591-75-95 12:29:00 Test Item Value Reference Range Interpretation Comments Hct (test code = Hct) 32.9 36.0-48.0 [facility] CenterHewwqyrZBPVEXALAI9768-34-96 12:29:00 Test Item Value Reference Range Interpretation Comments MCV (test code = MCV) 92.0 80.0-98.0 [facility] CenterFeogndcKTKWTTTYJE0867-69-99 12:29:00 Test Item Value Reference Range Interpretation Comments MCH (test code = MCH) 30.9 pg 27.0-31.0 [facility] CenterJsuuwbcCDDYWNXOWX6960-49-77 12:29:00 Test Item Value Reference Range Interpretation Comments MCHC (test code = MCHC) 33.6 32.0-36.0 [facility] CenterKxrbrvbWEWQLVZPWI6509-93-50 12:29:00 Test Item Value Reference Range Interpretation Comments RDW (test code = RDW) 12.5 11.5-14.5 [facility] CenterSoodpyqSIJDXHFHGS3243-98-57 12:29:00 Test Item Value Reference Range Interpretation Comments Platelet (test code = Platelet) 165 133-450 [facility] CenterEgsiqpnOQYNVTAVTX9496-65-83 12:29:00 Test Item Value Reference Range Interpretation Comments MPV (test code = MPV) 9.0 7.4-10.4 [facility] CenterAiohqxkOBPSJCWQMR1958-02-20 12:29:00 Test Item Value Reference Range Interpretation Comments Segs (test code = Segs) 48.2 45.0-75.0 [facility] CenterRfscamiGINWPSVJKA6360-30-72 12:29:00 Test Item Value Reference Range Interpretation Comments Lymphocytes (test code = Lymphocytes) 40.5 20.0-40.0 [facility] CenterIvqtrihRAHJAEOHON6961-23-57 12:29:00 Test Item Value Reference Range Interpretation Comments Monocytes (test code = Monocytes) 6.8 2.0-12.0 [place] 235960-11-22 12:29:00 Test Item Value Reference Range Interpretation Comments Eosinophils (test code = 3.5 See_Comment [A utomated message] The Eosinophils) system which ge nerated this result tra nsmitted reference range : <=4.0. The reference r daniel was not used to int erpret this result as normal/abnormal . [facility] HospitalMcvmfmaTPULPMUCJF5215-78-66 12:29:00 Test Item Value Reference Range Interpretation Comments Basophils (test code = 1.0 See_Comment [Aut omated message] The Basophils) system which ge nerated this result tra nsmitted reference range : <=1.0. The reference r daniel was not used to int erpret this result as normal/abnormal . [facility] HospitalHhvuhnbNJVXZENQLC0662-15-54 12:29:00 Test Item Value Reference Range Interpretation Comments Neutrophils # (test code = Neutrophils 1.8 1.5-8.1 #) [facility] CenterRmhythcGWNGRQNTRJ8897-23-62 12:29:00 Test Item Value Reference Range Interpretation Comments Lymphocytes # (test code = Lymphocytes 1.5 1.0-5.5 #) [facility] CenterWdkzbfcCVNZXQETVW2344-87-97 12:29:00 Test Item Value Reference Range Interpretation Comments Monocytes # (test code 0.3 See_Comment [Aut omated message] The = Monocytes #) system which generated this result tra nsmitted reference range : <=0.8. The reference r daniel was not used to int erpret this result as normal/abnormal . [facility] HospitalDzfzxgcAPPLZUCWFD6637-04-99 12:29:00 Test Item Value Reference Range Interpretation Comments Eosinophils # (test code 0.1 See_Comment [A utomated message] The = Eosinophils #) system whic h generated this result tra nsmitted reference range : <=0.5. The reference r daniel was not used to int erpret this result as normal/abnormal . [facility] [id number] 12:29:00 Test Item Value Reference Range Interpretation Comments Total Protein (test code = Total 6.0 6.4-8.4 Protein) [facility] [id number] 12:29:00 Test Item Value Reference Range Interpretation Comments Albumin Lvl (test code = Albumin Lvl) 3.1 3.5-5.0 [facility] [id number] 12:29:00 Test Item Value Reference Range Interpretation Comments ALT (test code = ALT) 207 See_Comment [Auto mated message] The system which ge nerated this result transmit jeremías reference range : <=65. The reference range was not used to interpr et this result as vernell l/abnormal. [facility] [employer] [id number] 12:29:00 Test Item Value Reference Range Interpretation Comments AST (test code = AST) 100 See_Comment [Auto mated message] The system which ge nerated this result transmit jeremías reference range : <=37. The reference range was not used to interpr et this result as vernell l/abnormal. [facility] [employer] [id number] 12:29:00 Test Item Value Reference Range Interpretation Comments Alk Phos (test code = Alk Phos) 133 39-136 [facility] [employer] [id number] 12:29:00 Test Item Value Reference Range Interpretation Comments Bili Total (test code = Bili Total) 1.1 0.2-1.3 [facility] [employer] [id number] 12:29:00 Test Item Value Reference Range Interpretation Comments Bili Direct (test code 0.3 See_Comment [Aut omated message] The = Bili Direct) system which generated this result tra nsmitted reference range : <=0.3. The reference r daniel was not used to int erpret this result as vernell l/abnormal. [facility] [employer] [id number] 12:29:00 Test Item Value Reference Range Interpretation Comments Bili Indirect (test 0.8 See_Comment [Automa jeremías message] The code = Bili Indirect) system which generated this result tra nsmitted reference range : <=1.0. The reference r daniel was not used to int erpret this result as normal/abnormal . [facility] [employer] [id number] 12:29:00 Test Item Value Reference Range Interpretation Comments Globulin (test code = Globulin) 2.9 2.7-4.2 [facility] [employer] [id number] 12:29:00 Test Item Value Reference Range Interpretation Comments A/G Ratio (test code = A/G Ratio) 1.1 1 0.7-1.6 [facility] [employer] [id number] 12:29:00 Test Item Value Reference Range Interpretation Comments Glucose Lvl (test code = Glucose Lvl) 79 70-99 [place] 447990-11-22 12:29:00 Test Item Value Reference Range Interpretation Comments BUN (test code = BUN) 5 7-22 [facility]2020-11-22 12:29:00 Test Item Value Reference Range Interpretation Comments Creatinine Lvl (test code = Creatinine 0.42 0.50-1.40 Lvl) [facility]2020-11-22 12:29:00 Test Item Value Reference Range Interpretation Comments Sodium Lvl (test code = Sodium Lvl) 137 135-145 [place] 447990-11-22 12:29:00 Test Item Value Reference Range Interpretation Comments Potassium Lvl (test code = Potassium 3.9 3.5-5.1 Lvl) [facility]2020-11-22 12:29:00 Test Item Value Reference Range Interpretation Comments Chloride Lvl (test code = Chloride Lvl) 110 95-109 [facility]2020-11-22 12:29:00 Test Item Value Reference Range Interpretation Comments CO2 (test code = CO2) 23 24-32 [facility]2020-11-22 12:29:00 Test Item Value Reference Range Interpretation Comments Calcium Lvl (test code = Calcium Lvl) 8.5 8.5-10.5 [facility]2020-11-22 12:29:00 Test Item Value Reference Range Interpretation Comments AGAP (test code = AGAP) 7.9 10.0-20.0 [facility]2020-11-22 12:29:00 Test Item Value Reference Range Interpretation Comments eGFR (test code = eGFR) 136 [facility]TbqsvwxQRPPNZMBPQ6907-32-26 12:29:00 Test Item Value Reference Range Interpretation Comments PT (test code = PT) 15.5 s 12.0-14.7 [place] 235960-11-22 12:29:00 Test Item Value Reference Range Interpretation Comments INR (test code = INR) 1.22 1 0.85-1.17 [place] 235960-11-22 12:29:00 Test Item Value Reference Range Interpretation Comments WBC (test code = WBC) 3.7 3.7-10.4 [place] 235960-11-22 12:29:00 Test Item Value Reference Range Interpretation Comments RBC (test code = RBC) 3.57 4.20-5.40 [facility] CenterDbovkctMGCWLKYAMZ8658-08-27 12:29:00 Test Item Value Reference Range Interpretation Comments Hgb (test code = Hgb) 11.1 12.0-16.0 [facility] CenterCurzwsdAZLDFUHWUQ9651-53-93 12:29:00 Test Item Value Reference Range Interpretation Comments Hct (test code = Hct) 32.9 36.0-48.0 [facility] CenterFsjiyvbIYJTJJQHMJ2631-36-37 12:29:00 Test Item Value Reference Range Interpretation Comments MCV (test code = MCV) 92.0 80.0-98.0 [facility] CenterYrgiohfQCZEYKAAES3870-68-72 12:29:00 Test Item Value Reference Range Interpretation Comments MCH (test code = MCH) 30.9 pg 27.0-31.0 [facility] CenterMevyompCJVKDIJATZ4423-39-41 12:29:00 Test Item Value Reference Range Interpretation Comments MCHC (test code = MCHC) 33.6 32.0-36.0 [facility] CenterUargbioNMHOXTILAI1230-61-22 12:29:00 Test Item Value Reference Range Interpretation Comments RDW (test code = RDW) 12.5 11.5-14.5 [facility] CenterAeehnheOGCVLHRMDZ6223-94-87 12:29:00 Test Item Value Reference Range Interpretation Comments Platelet (test code = Platelet) 165 133-450 [facility] CenterPfhkrwjPTUMJEHMQO4084-01-86 12:29:00 Test Item Value Reference Range Interpretation Comments MPV (test code = MPV) 9.0 7.4-10.4 [facility] CenterXsiiyavGXPMAEQQSR8051-95-31 12:29:00 Test Item Value Reference Range Interpretation Comments Segs (test code = Segs) 48.2 45.0-75.0 [facility] CenterUhheprcUZDKAZRBCJ8970-13-22 12:29:00 Test Item Value Reference Range Interpretation Comments Lymphocytes (test code = Lymphocytes) 40.5 20.0-40.0 [facility] CenterRnfeuzjSBKALGRYSM7160-70-96 12:29:00 Test Item Value Reference Range Interpretation Comments Monocytes (test code = Monocytes) 6.8 2.0-12.0 [facility] CenterHpqjfmaKCDGALBWIS5461-24-50 12:29:00 Test Item Value Reference Range Interpretation Comments Eosinophils (test code = 3.5 See_Comment [A utomated message] The Eosinophils) system which ge nerated this result tra nsmitted reference range : <=4.0. The reference r daniel was not used to int erpret this result as normal/abnormal . [facility] HospitalAwmpzozQGOZCYUVOX9347-57-91 12:29:00 Test Item Value Reference Range Interpretation Comments Basophils (test code = 1.0 See_Comment [Aut omated message] The Basophils) system which ge nerated this result tra nsmitted reference range : <=1.0. The reference r daniel was not used to int erpret this result as normal/abnormal . [facility] HospitalIiiteunAZOWTMHTRH7839-25-97 12:29:00 Test Item Value Reference Range Interpretation Comments Neutrophils # (test code = Neutrophils 1.8 1.5-8.1 #) [facility] CenterCjxxikuDBWHDJSOUC9618-90-01 12:29:00 Test Item Value Reference Range Interpretation Comments Lymphocytes # (test code = Lymphocytes 1.5 1.0-5.5 #) [facility] CenterNmwzuncUAGHCDDLCU2116-93-52 12:29:00 Test Item Value Reference Range Interpretation Comments Monocytes # (test code 0.3 See_Comment [Aut omated message] The = Monocytes #) system which generated this result tra nsmitted reference range : <=0.8. The reference r daniel was not used to int erpret this result as normal/abnormal . [facility] HospitalTyzgelnXUJVXCKBNV2671-78-11 12:29:00 Test Item Value Reference Range Interpretation Comments Eosinophils # (test code 0.1 See_Comment [A utomated message] The = Eosinophils #) system whic h generated this result tra nsmitted reference range : <=0.5. The reference r daniel was not used to int erpret this result as normal/abnormal . [facility]WedWuBZJND9816-14-32 12:29:00 Test Item Value Reference Range Interpretation Comments Total Protein (test code = Total 6.0 6.4-8.4 Protein) [facility] HospitalWedWuDIDMN1972-37-41 12:29:00 Test Item Value Reference Range Interpretation Comments Albumin Lvl (test code = Albumin Lvl) 3.1 3.5-5.0 [facility] HospitalWedWuOCIVQ4528-14-27 12:29:00 Test Item Value Reference Range Interpretation Comments ALT (test code = ALT) 207 <=65 [facility] HospitalWalkHubWAKE FOR[facility] HOSPITALZQSVB6634-51-52 12:29:00 Test Item Value Reference Range Interpretation Comments AST (test code = AST) 100 <=37 [place] 447990-11-22 12:29:00 Test Item Value Reference Range Interpretation Comments Alk Phos (test code = Alk Phos) 133 39-136 [facility]2020-11-22 12:29:00 Test Item Value Reference Range Interpretation Comments Bili Total (test code = Bili Total) 1.1 0.2-1.3 [place] 447990-11-22 12:29:00 Test Item Value Reference Range Interpretation Comments Bili Direct (test code = Bili Direct) 0.3 <=0.3 [place] 447990-11-22 12:29:00 Test Item Value Reference Range Interpretation Comments Bili Indirect (test code = Bili 0.8 <=1.0 Indirect) [place] 447990-11-22 12:29:00 Test Item Value Reference Range Interpretation Comments Globulin (test code = Globulin) 2.9 2.7-4.2 [place] 447990-11-22 12:29:00 Test Item Value Reference Range Interpretation Comments A/G Ratio (test code = A/G Ratio) 1.1 1 0.7-1.6 [facility]2020-11-22 12:29:00 Test Item Value Reference Range Interpretation Comments Glucose Lvl (test code = Glucose Lvl) 79 70-99 [facility]2020-11-22 12:29:00 Test Item Value Reference Range Interpretation Comments BUN (test code = BUN) 5 7-22 [place] 447990-11-22 12:29:00 Test Item Value Reference Range Interpretation Comments Creatinine Lvl (test code = Creatinine 0.42 0.50-1.40 Lvl) [facility]2020-11-22 12:29:00 Test Item Value Reference Range Interpretation Comments Sodium Lvl (test code = Sodium Lvl) 137 135-145 [facility]2020-11-22 12:29:00 Test Item Value Reference Range Interpretation Comments Potassium Lvl (test code = Potassium 3.9 3.5-5.1 Lvl) [place] 447990-11-22 12:29:00 Test Item Value Reference Range Interpretation Comments Chloride Lvl (test code = Chloride Lvl) 110 95-109 [place] 447990-11-22 12:29:00 Test Item Value Reference Range Interpretation Comments CO2 (test code = CO2) 23 24-32 [place] [address]-11-22 12:29:00 Test Item Value Reference Range Interpretation Comments Calcium Lvl (test code = Calcium Lvl) 8.5 8.5-10.5 [place] 447990-11-22 12:29:00 Test Item Value Reference Range Interpretation Comments AGAP (test code = AGAP) 7.9 10.0-20.0 [place] 447990-11-22 12:29:00 Test Item Value Reference Range Interpretation Comments eGFR (test code = eGFR) 136 [facility] CenterBmtkmyfAHTZVYXJSJ6301-02-13 12:29:00 Test Item Value Reference Range Interpretation Comments PT (test code = PT) 15.5 s 12.0-14.7 [place] 235960-11-22 12:29:00 Test Item Value Reference Range Interpretation Comments INR (test code = INR) 1.22 1 0.85-1.17 [place] [address]-11-22 12:29:00 Test Item Value Reference Range Interpretation Comments WBC (test code = WBC) 3.7 3.7-10.4 [place] 235960-11-22 12:29:00 Test Item Value Reference Range Interpretation Comments RBC (test code = RBC) 3.57 4.20-5.40 [place] 235960-11-22 12:29:00 Test Item Value Reference Range Interpretation Comments Hgb (test code = Hgb) 11.1 12.0-16.0 [place] [address]-11-22 12:29:00 Test Item Value Reference Range Interpretation Comments Hct (test code = Hct) 32.9 36.0-48.0 [place] 235960-11-22 12:29:00 Test Item Value Reference Range Interpretation Comments MCV (test code = MCV) 92.0 80.0-98.0 [place] [address]-11-22 12:29:00 Test Item Value Reference Range Interpretation Comments MCH (test code = MCH) 30.9 pg 27.0-31.0 [facility] CenterFrfwdfcONEFNZNWFM1560-91-28 12:29:00 Test Item Value Reference Range Interpretation Comments MCHC (test code = MCHC) 33.6 32.0-36.0 [facility] CenterNzicgrgFSJCXWNUEO2303-10-60 12:29:00 Test Item Value Reference Range Interpretation Comments RDW (test code = RDW) 12.5 11.5-14.5 [facility] CenterHouryzpUSRAUGKEIL9638-55-35 12:29:00 Test Item Value Reference Range Interpretation Comments Platelet (test code = Platelet) 165 133-450 [facility] CenterVywacydTMPZDWQCUE3334-22-37 12:29:00 Test Item Value Reference Range Interpretation Comments MPV (test code = MPV) 9.0 7.4-10.4 [facility] CenterVasrauoLMUFTBZTYE9895-00-83 12:29:00 Test Item Value Reference Range Interpretation Comments Segs (test code = Segs) 48.2 45.0-75.0 [facility] CenterHllzchwCINKGCKVSB6765-98-27 12:29:00 Test Item Value Reference Range Interpretation Comments Lymphocytes (test code = Lymphocytes) 40.5 20.0-40.0 [facility] CenterUlqinitEWEPWLRSRL9669-23-45 12:29:00 Test Item Value Reference Range Interpretation Comments Monocytes (test code = Monocytes) 6.8 2.0-12.0 [facility] CenterQwpnwznZXTDKWXKZQ1976-34-31 12:29:00 Test Item Value Reference Range Interpretation Comments Eosinophils (test code = Eosinophils) 3.5 <=4.0 [facility] CenterUqwtcyvVDXFQBNQMZ3908-88-49 12:29:00 Test Item Value Reference Range Interpretation Comments Basophils (test code = Basophils) 1.0 <=1.0 [facility] CenterYiweysjRAMLIAJCIN8411-79-80 12:29:00 Test Item Value Reference Range Interpretation Comments Neutrophils # (test code = Neutrophils 1.8 1.5-8.1 #) [facility] CenterXjjjqpvWNYANPEDUT6334-72-36 12:29:00 Test Item Value Reference Range Interpretation Comments Lymphocytes # (test code = Lymphocytes 1.5 1.0-5.5 #) [facility] CenterIwktptyTAYNMCWFPR0451-06-46 12:29:00 Test Item Value Reference Range Interpretation Comments Monocytes # (test code = Monocytes #) 0.3 <=0.8 [place] 235960-11-22 12:29:00 Test Item Value Reference Range Interpretation Comments Eosinophils # (test code = Eosinophils 0.1 <=0.5 #) [place] 447990-11-21 20:08:00 Test Item Value Reference Range Interpretation Comments Lactic Acid Lvl (test code = Lactic 0.7 0.5-2.2 Acid Lvl) [facility]2020-11-21 20:08:00 Test Item Value Reference Range Interpretation Comments Magnesium Lvl (test code = Magnesium 1.9 1.8-2.4 Lvl) [place] 447990-11-21 20:08:00 Test Item Value Reference Range Interpretation Comments Phosphorus (test code = Phosphorus) 2.9 2.5-4.5 [facility]2020-11-21 20:08:00 Test Item Value Reference Range Interpretation Comments Lipase Lvl (test code = Lipase Lvl) 1600 73-393 [facility]2020-11-21 20:08:00 Test Item Value Reference Range Interpretation Comments Amylase Lvl (test code = Amylase Lvl) 336 25-115 [place] 235960-11-21 20:08:00 Test Item Value Reference Range Interpretation Comments WBC (test code = WBC) 4.8 3.7-10.4 [place] 235960-11-21 20:08:00 Test Item Value Reference Range Interpretation Comments RBC (test code = RBC) 3.60 4.20-5.40 [place] 235960-11-21 20:08:00 Test Item Value Reference Range Interpretation Comments Hgb (test code = Hgb) 11.4 12.0-16.0 [place] 235960-11-21 20:08:00 Test Item Value Reference Range Interpretation Comments Hct (test code = Hct) 33.0 36.0-48.0 [place] [address]-11-21 20:08:00 Test Item Value Reference Range Interpretation Comments MCV (test code = MCV) 91.8 80.0-98.0 [place] 235960-11-21 20:08:00 Test Item Value Reference Range Interpretation Comments MCH (test code = MCH) 31.6 pg 27.0-31.0 [place] 235960-11-21 20:08:00 Test Item Value Reference Range Interpretation Comments MCHC (test code = MCHC) 34.4 32.0-36.0 [facility] CenterAgvbdrfYPELLCVTMZ1185-60-90 20:08:00 Test Item Value Reference Range Interpretation Comments RDW (test code = RDW) 12.5 11.5-14.5 [place] 235960-11-21 20:08:00 Test Item Value Reference Range Interpretation Comments Platelet (test code = Platelet) 166 133-450 [facility] CenterOiygbrlCLPMXPMFMT9851-00-79 20:08:00 Test Item Value Reference Range Interpretation Comments MPV (test code = MPV) 8.8 7.4-10.4 [facility] CenterMqiekwqDODMYBLONF7027-06-49 20:08:00 Test Item Value Reference Range Interpretation Comments PT (test code = PT) 15.6 s 12.0-14.7 [place] 235960-11-21 20:08:00 Test Item Value Reference Range Interpretation Comments INR (test code = INR) 1.23 1 0.85-1.17 [facility] CenterPalbtqxEXSDIXHAVR6628-37-99 20:08:00 Test Item Value Reference Range Interpretation Comments Segs (test code = Segs) 70.9 45.0-75.0 [facility] CenterZfsdkfjARKHUNASPF6954-30-57 20:08:00 Test Item Value Reference Range Interpretation Comments Lymphocytes (test code = Lymphocytes) 18.2 20.0-40.0 [place] 235960-11-21 20:08:00 Test Item Value Reference Range Interpretation Comments Monocytes (test code = Monocytes) 9.4 2.0-12.0 [place] 235960-11-21 20:08:00 Test Item Value Reference Range Interpretation Comments Eosinophils (test code = 1.0 See_Comment [A utomated message] The Eosinophils) system which ge nerated this result tra nsmitted reference range : <=4.0. The reference r daniel was not used to int erpret this result as normal/abnormal . [place] 235960-11-21 20:08:00 Test Item Value Reference Range Interpretation Comments Basophils (test code = 0.5 See_Comment [Aut omated message] The Basophils) system which ge nerated this result tra nsmitted reference range : <=1.0. The reference r daniel was not used to int erpret this result as normal/abnormal . [facility] CenterRzlkocyVCLEPKMQYO6235-98-07 20:08:00 Test Item Value Reference Range Interpretation Comments Neutrophils # (test code = Neutrophils 3.4 1.5-8.1 #) [facility] CenterNcgtkksVAQUOOIOQF2478-16-71 20:08:00 Test Item Value Reference Range Interpretation Comments Lymphocytes # (test code = Lymphocytes 0.9 1.0-5.5 #) [facility] CenterWvjlkeqLVLMJPJMGL6147-97-96 20:08:00 Test Item Value Reference Range Interpretation Comments Monocytes # (test code 0.4 See_Comment [Aut omated message] The = Monocytes #) system which generated this result tra nsmitted reference range : <=0.8. The reference r daniel was not used to int erpret this result as normal/abnormal . [place] 659720-11-21 20:08:00 Test Item Value Reference Range Interpretation Comments LDL (Calculated) (test code = LDL 70 (Calculated)) [place] 659720-11-21 20:08:00 Test Item Value Reference Range Interpretation Comments Trig (test code = Trig) 50 [place] [address]-11-21 20:08:00 Test Item Value Reference Range Interpretation Comments Chol (test code = Chol) 140 [place] [address]-11-21 20:08:00 Test Item Value Reference Range Interpretation Comments HDL (test code = HDL) 60 [place] [address]-11-21 20:08:00 Test Item Value Reference Range Interpretation Comments CHD Risk (test code = CHD Risk) 2.33 1 3.90-5.80 [place] 659720-11-21 20:08:00 Test Item Value Reference Range Interpretation Comments VLDL (test code = VLDL) 10 1 [place] 447990-11-21 20:08:00 Test Item Value Reference Range Interpretation Comments Glucose Lvl (test code = Glucose Lvl) 100 70-99 [facility]2020-11-21 20:08:00 Test Item Value Reference Range Interpretation Comments BUN (test code = BUN) 6 7-22 [place] 447990-11-21 20:08:00 Test Item Value Reference Range Interpretation Comments Creatinine Lvl (test code = Creatinine 0.52 0.50-1.40 Lvl) [place] 447990-11-21 20:08:00 Test Item Value Reference Range Interpretation Comments Sodium Lvl (test code = Sodium Lvl) 138 135-[address] [facility] [id number] 20:08:00 Test Item Value Reference Range Interpretation Comments Potassium Lvl (test code = Potassium 3.5 3.5-5.1 Lvl) [facility] [id number] 20:08:00 Test Item Value Reference Range Interpretation Comments Chloride Lvl (test code = Chloride Lvl) 109 95-109 [facility] [id number] 20:08:00 Test Item Value Reference Range Interpretation Comments CO2 (test code = CO2) 25 24-32 [facility] [id number] 20:08:00 Test Item Value Reference Range Interpretation Comments AGAP (test code = AGAP) 7.5 10.0-20.0 [facility] [id number] 20:08:00 Test Item Value Reference Range Interpretation Comments eGFR (test code = eGFR) 127 [facility] [id number] 20:08:00 Test Item Value Reference Range Interpretation Comments Total Protein (test code = Total 6.3 6.4-8.4 Protein) [facility] [id number] 20:08:00 Test Item Value Reference Range Interpretation Comments Albumin Lvl (test code = Albumin Lvl) 3.2 3.5-5.0 [facility] [id number] 20:08:00 Test Item Value Reference Range Interpretation Comments ALT (test code = ALT) 314 See_Comment [Auto mated message] The system which Credii nerated this result transmit jeremías reference range : <=65. The reference range was not used to interpr et this result as vernell l/abnormal. [facility] [employer] [id number] 20:08:00 Test Item Value Reference Range Interpretation Comments AST (test code = AST) 322 See_Comment [Auto mated message] The system which Credii nerated this result transmit jeremías reference range : <=37. The reference range was not used to interpr et this result as vernell l/abnormal. [facility] [employer] [id number] 20:08:00 Test Item Value Reference Range Interpretation Comments Alk Phos (test code = Alk Phos) 144 39-136 [facility] HospitalAff[facility] Health [id number] 20:08:00 Test Item Value Reference Range Interpretation Comments Bili Total (test code = Bili Total) 1.4 0.2-1.3 [place] 447990-11-21 20:08:00 Test Item Value Reference Range Interpretation Comments Bili Direct (test code 0.5 See_Comment [Aut omated message] The = Bili Direct) system which generated this result tra nsmitted reference range : <=0.3. The reference r daniel was not used to int erpret this result as vernell l/abnormal. [place] 447990-11-21 20:08:00 Test Item Value Reference Range Interpretation Comments Bili Indirect (test 0.9 See_Comment [Automa jereímas message] The code = Bili Indirect) system which generated this result tra nsmitted reference range : <=1.0. The reference r daniel was not used to int erpret this result as normal/abnormal . [facility] [id number] 20:08:00 Test Item Value Reference Range Interpretation Comments Globulin (test code = Globulin) 3.1 2.7-4.2 [place] 447990-11-21 20:08:00 Test Item Value Reference Range Interpretation Comments A/G Ratio (test code = A/G Ratio) 1.0 1 0.7-1.6 [place] 447990-11-21 20:08:00 Test Item Value Reference Range Interpretation Comments Lactic Acid Lvl (test code = Lactic 0.7 0.5-2.2 Acid Lvl) [facility] HospitalWalkHubWA[facility] FOR[facility] DAV[facility] [id number] 20:08:00 Test Item Value Reference Range Interpretation Comments Magnesium Lvl (test code = Magnesium 1.9 1.8-2.4 Lvl) [facility] HospitalWalkHubNICHOLAS [place] [id number] 20:08:00 Test Item Value Reference Range Interpretation Comments Phosphorus (test code = Phosphorus) 2.9 2.5-4.5 [place] 447990-11-21 20:08:00 Test Item Value Reference Range Interpretation Comments Lipase Lvl (test code = Lipase Lvl) 1600 73-393 [facility] HospitalT[facility] Inc[facility] [id number] 20:08:00 Test Item Value Reference Range Interpretation Comments Amylase Lvl (test code = Amylase Lvl) 336 25-115 [place] 235960-11-21 20:08:00 Test Item Value Reference Range Interpretation Comments WBC (test code = WBC) 4.8 3.7-10.4 [facility] CenterWxvfeblIHKECPMBYO4208-68-46 20:08:00 Test Item Value Reference Range Interpretation Comments RBC (test code = RBC) 3.60 4.20-5.40 [facility] CenterSfdkdoaCGCPZBCIGE7837-89-68 20:08:00 Test Item Value Reference Range Interpretation Comments Hgb (test code = Hgb) 11.4 12.0-16.0 [facility]MmvbnnmXEXBFLKWQT6174-07-45 20:08:00 Test Item Value Reference Range Interpretation Comments Hct (test code = Hct) 33.0 36.0-48.0 [facility] CenterPxowtlxJCEZIWWSVA3114-55-37 20:08:00 Test Item Value Reference Range Interpretation Comments MCV (test code = MCV) 91.8 80.0-98.0 [facility] CenterAayjccnWXRVNFBICO7079-23-72 20:08:00 Test Item Value Reference Range Interpretation Comments MCH (test code = MCH) 31.6 pg 27.0-31.0 [facility] CenterGckaftuRRYRDGEFZT0546-48-22 20:08:00 Test Item Value Reference Range Interpretation Comments MCHC (test code = MCHC) 34.4 32.0-36.0 [facility] CenterCxmyzbvMIDMMVZZAY6336-35-40 20:08:00 Test Item Value Reference Range Interpretation Comments RDW (test code = RDW) 12.5 11.5-14.5 [facility] CenterKigzzfvMAWJITASWV9205-90-76 20:08:00 Test Item Value Reference Range Interpretation Comments Platelet (test code = Platelet) 166 133-450 [facility] CenterBryiputWJMWLXORXP2856-60-97 20:08:00 Test Item Value Reference Range Interpretation Comments MPV (test code = MPV) 8.8 7.4-10.4 [facility] CenterPzddvthDZBUMTXLIU7868-65-84 20:08:00 Test Item Value Reference Range Interpretation Comments PT (test code = PT) 15.6 s 12.0-14.7 [facility] CenterZtznzxpJHGVUMXAZB9780-68-16 20:08:00 Test Item Value Reference Range Interpretation Comments INR (test code = INR) 1.23 1 0.85-1.17 [facility] CenterKbfpxdmERCJPTSTLB7933-60-28 20:08:00 Test Item Value Reference Range Interpretation Comments Segs (test code = Segs) 70.9 45.0-75.0 [facility] CenterTsglfveRYXYRYDAVW1812-83-09 20:08:00 Test Item Value Reference Range Interpretation Comments Lymphocytes (test code = Lymphocytes) 18.2 20.0-40.0 [place] 235960-11-21 20:08:00 Test Item Value Reference Range Interpretation Comments Monocytes (test code = Monocytes) 9.4 2.0-12.0 [facility] CenterZgxivqvVUIYISKOMC6523-04-08 20:08:00 Test Item Value Reference Range Interpretation Comments Eosinophils (test code = 1.0 See_Comment [A utomated message] The Eosinophils) system which ge nerated this result tra nsmitted reference range : <=4.0. The reference r daniel was not used to int erpret this result as normal/abnormal . [facility] CenterOfobettWNGKJBPOUC7679-10-96 20:08:00 Test Item Value Reference Range Interpretation Comments Basophils (test code = 0.5 See_Comment [Aut omated message] The Basophils) system which ge nerated this result tra nsmitted reference range : <=1.0. The reference r daniel was not used to int erpret this result as normal/abnormal . [facility] CenterFewpvoeKJFXYRARYM5589-26-74 20:08:00 Test Item Value Reference Range Interpretation Comments Neutrophils # (test code = Neutrophils 3.4 1.5-8.1 #) [facility] CenterGuynsioHHCLXPDUUS8888-55-47 20:08:00 Test Item Value Reference Range Interpretation Comments Lymphocytes # (test code = Lymphocytes 0.9 1.0-5.5 #) [facility] CenterZzaezbwTHPRKJFFFP1111-91-70 20:08:00 Test Item Value Reference Range Interpretation Comments Monocytes # (test code 0.4 See_Comment [Aut omated message] The = Monocytes #) system which generated this result tra nsmitted reference range : <=0.8. The reference r daniel was not used to int erpret this result as normal/abnormal . [facility]DupldskYTLNUO3193-56-87 20:08:00 Test Item Value Reference Range Interpretation Comments LDL (Calculated) (test code = LDL 70 (Calculated)) [facility] CenterFhuayvgBQJIGG0338-04-87 20:08:00 Test Item Value Reference Range Interpretation Comments Trig (test code = Trig) 50 [facility]RdkurvfOANBCM2545-55-40 20:08:00 Test Item Value Reference Range Interpretation Comments Chol (test code = Chol) [address] [facility] HospitalUhbncqaYUZZIU9620-03-34 20:08:00 Test Item Value Reference Range Interpretation Comments HDL (test code = HDL) 60 [place] 659720-11-21 20:08:00 Test Item Value Reference Range Interpretation Comments CHD Risk (test code = CHD Risk) 2.33 1 3.90-5.80 [place] 659720-11-21 20:08:00 Test Item Value Reference Range Interpretation Comments VLDL (test code = VLDL) 10 1 [facility] [address]22SHZUI4927-89-34 20:08:00 Test Item Value Reference Range Interpretation Comments Glucose Lvl (test code = Glucose Lvl) 100 70-99 [facility]2020-11-21 20:08:00 Test Item Value Reference Range Interpretation Comments BUN (test code = BUN) 6 7-22 [place] 447990-11-21 20:08:00 Test Item Value Reference Range Interpretation Comments Creatinine Lvl (test code = Creatinine 0.52 0.50-1.40 Lvl) [facility]2020-11-21 20:08:00 Test Item Value Reference Range Interpretation Comments Sodium Lvl (test code = Sodium Lvl) 138 135-[address] [facility] [id number] 20:08:00 Test Item Value Reference Range Interpretation Comments Potassium Lvl (test code = Potassium 3.5 3.5-5.1 Lvl) [facility]2020-11-21 20:08:00 Test Item Value Reference Range Interpretation Comments Chloride Lvl (test code = Chloride Lvl) 109 95-109 [place] 447990-11-21 20:08:00 Test Item Value Reference Range Interpretation Comments CO2 (test code = CO2) 25 24-[address] [facility] [id number] 20:08:00 Test Item Value Reference Range Interpretation Comments AGAP (test code = AGAP) 7.5 10.0-20.0 [facility]2020-11-21 20:08:00 Test Item Value Reference Range Interpretation Comments eGFR (test code = eGFR) 127 [facility]2020-11-21 20:08:00 Test Item Value Reference Range Interpretation Comments Total Protein (test code = Total 6.3 6.4-8.4 Protein) [facility] [id number] 20:08:00 Test Item Value Reference Range Interpretation Comments Albumin Lvl (test code = Albumin Lvl) 3.2 3.5-5.0 [facility] [id number] 20:08:00 Test Item Value Reference Range Interpretation Comments ALT (test code = ALT) 314 See_Comment [Auto mated message] The system which ge nerated this result transmit jeremías reference range : <=65. The reference range was not used to interpr et this result as vernell l/abnormal. [facility] [employer] [id number] 20:08:00 Test Item Value Reference Range Interpretation Comments AST (test code = AST) 322 See_Comment [Auto mated message] The system which ge nerated this result transmit jeremías reference range : <=37. The reference range was not used to interpr et this result as vernell l/abnormal. [facility] [employer] [id number] 20:08:00 Test Item Value Reference Range Interpretation Comments Alk Phos (test code = Alk Phos) 144 39-136 [facility] [id number] 20:08:00 Test Item Value Reference Range Interpretation Comments Bili Total (test code = Bili Total) 1.4 0.2-1.3 [facility] [id number] 20:08:00 Test Item Value Reference Range Interpretation Comments Bili Direct (test code 0.5 See_Comment [Aut omated message] The = Bili Direct) system which generated this result tra nsmitted reference range : <=0.3. The reference r daniel was not used to int erpret this result as vernell l/abnormal. [facility] [employer] [id number] 20:08:00 Test Item Value Reference Range Interpretation Comments Bili Indirect (test 0.9 See_Comment [Automa jeremías message] The code = Bili Indirect) system which generated this result tra nsmitted reference range : <=1.0. The reference r daniel was not used to int erpret this result as normal/abnormal . [facility] [employer] [id number] 20:08:00 Test Item Value Reference Range Interpretation Comments Globulin (test code = Globulin) 3.1 2.7-4.2 [place] 447990-11-21 20:08:00 Test Item Value Reference Range Interpretation Comments A/G Ratio (test code = A/G Ratio) 1.0 1 0.7-1.6 [place] 447990-11-21 20:08:00 Test Item Value Reference Range Interpretation Comments Lactic Acid Lvl (test code = Lactic 0.7 0.5-2.2 Acid Lvl) [place] 447990-11-21 20:08:00 Test Item Value Reference Range Interpretation Comments Magnesium Lvl (test code = Magnesium 1.9 1.8-2.4 Lvl) [place] 447990-11-21 20:08:00 Test Item Value Reference Range Interpretation Comments Phosphorus (test code = Phosphorus) 2.9 2.5-4.5 [place] 447990-11-21 20:08:00 Test Item Value Reference Range Interpretation Comments Lipase Lvl (test code = Lipase Lvl) 1600 73-393 [place] 447990-11-21 20:08:00 Test Item Value Reference Range Interpretation Comments Amylase Lvl (test code = Amylase Lvl) 336 25-115 [place] 235960-11-21 20:08:00 Test Item Value Reference Range Interpretation Comments WBC (test code = WBC) 4.8 3.7-10.4 [place] 235960-11-21 20:08:00 Test Item Value Reference Range Interpretation Comments RBC (test code = RBC) 3.60 4.20-5.40 [place] 235960-11-21 20:08:00 Test Item Value Reference Range Interpretation Comments Hgb (test code = Hgb) 11.4 12.0-16.0 [place] [address]-11-21 20:08:00 Test Item Value Reference Range Interpretation Comments Hct (test code = Hct) 33.0 36.0-48.0 [place] [address]-11-21 20:08:00 Test Item Value Reference Range Interpretation Comments MCV (test code = MCV) 91.8 80.0-98.0 [place] [address]-11-21 20:08:00 Test Item Value Reference Range Interpretation Comments MCH (test code = MCH) 31.6 pg 27.0-31.0 [place] 235960-11-21 20:08:00 Test Item Value Reference Range Interpretation Comments MCHC (test code = MCHC) 34.4 32.0-36.0 [place] 235960-11-21 20:08:00 Test Item Value Reference Range Interpretation Comments RDW (test code = RDW) 12.5 11.5-14.5 [place] 235960-11-21 20:08:00 Test Item Value Reference Range Interpretation Comments Platelet (test code = Platelet) 166 133-450 [facility] CenterGhqceqtHTHVKPMAJY9447-77-18 20:08:00 Test Item Value Reference Range Interpretation Comments MPV (test code = MPV) 8.8 7.4-10.4 [place] 235960-11-21 20:08:00 Test Item Value Reference Range Interpretation Comments PT (test code = PT) 15.6 s 12.0-14.7 [place] 235960-11-21 20:08:00 Test Item Value Reference Range Interpretation Comments INR (test code = INR) 1.23 1 0.85-1.17 [place] 235960-11-21 20:08:00 Test Item Value Reference Range Interpretation Comments Segs (test code = Segs) 70.9 45.0-75.0 [place] 235960-11-21 20:08:00 Test Item Value Reference Range Interpretation Comments Lymphocytes (test code = Lymphocytes) 18.2 20.0-40.0 [place] 235960-11-21 20:08:00 Test Item Value Reference Range Interpretation Comments Monocytes (test code = Monocytes) 9.4 2.0-12.0 [place] 235960-11-21 20:08:00 Test Item Value Reference Range Interpretation Comments Eosinophils (test code = 1.0 See_Comment [A utomated message] The Eosinophils) system which ge nerated this result tra nsmitted reference range : <=4.0. The reference r daniel was not used to int erpret this result as normal/abnormal . [place] 235960-11-21 20:08:00 Test Item Value Reference Range Interpretation Comments Basophils (test code = 0.5 See_Comment [Aut omated message] The Basophils) system which ge nerated this result tra nsmitted reference range : <=1.0. The reference r daniel was not used to int erpret this result as normal/abnormal . [place] 235960-11-21 20:08:00 Test Item Value Reference Range Interpretation Comments Neutrophils # (test code = Neutrophils 3.4 1.5-8.1 #) [facility] CenterBljreqbKALLNGEPIF3779-01-06 20:08:00 Test Item Value Reference Range Interpretation Comments Lymphocytes # (test code = Lymphocytes 0.9 1.0-5.5 #) [facility] CenterPcondbtHBLTVXTMEF2236-97-14 20:08:00 Test Item Value Reference Range Interpretation Comments Monocytes # (test code 0.4 See_Comment [Aut omated message] The = Monocytes #) system which generated this result tra nsmitted reference range : <=0.8. The reference r daniel was not used to int erpret this result as normal/abnormal . [place] 659720-11-21 20:08:00 Test Item Value Reference Range Interpretation Comments LDL (Calculated) (test code = LDL 70 (Calculated)) [place] 659720-11-21 20:08:00 Test Item Value Reference Range Interpretation Comments Trig (test code = Trig) 50 [place] [address]-11-21 20:08:00 Test Item Value Reference Range Interpretation Comments Chol (test code = Chol) 140 [place] 659720-11-21 20:08:00 Test Item Value Reference Range Interpretation Comments HDL (test code = HDL) 60 [place] [address]-11-21 20:08:00 Test Item Value Reference Range Interpretation Comments CHD Risk (test code = CHD Risk) 2.33 1 3.90-5.80 [place] [address]-11-21 20:08:00 Test Item Value Reference Range Interpretation Comments VLDL (test code = VLDL) 10 1 [place] 447990-11-21 20:08:00 Test Item Value Reference Range Interpretation Comments Glucose Lvl (test code = Glucose Lvl) 100 70-99 [place] 447990-11-21 20:08:00 Test Item Value Reference Range Interpretation Comments BUN (test code = BUN) 6 7-22 [place] 447990-11-21 20:08:00 Test Item Value Reference Range Interpretation Comments Creatinine Lvl (test code = Creatinine 0.52 0.50-1.40 Lvl) [place] 447990-11-21 20:08:00 Test Item Value Reference Range Interpretation Comments Sodium Lvl (test code = Sodium Lvl) 138 135-145 [place] 447990-11-21 20:08:00 Test Item Value Reference Range Interpretation Comments Potassium Lvl (test code = Potassium 3.5 3.5-5.1 Lvl) [place] 447990-11-21 20:08:00 Test Item Value Reference Range Interpretation Comments Chloride Lvl (test code = Chloride Lvl) 109 95-109 [place] 447990-11-21 20:08:00 Test Item Value Reference Range Interpretation Comments CO2 (test code = CO2) 25 24-32 [place] [address]-11-21 20:08:00 Test Item Value Reference Range Interpretation Comments AGAP (test code = AGAP) 7.5 10.0-20.0 [place] 447990-11-21 20:08:00 Test Item Value Reference Range Interpretation Comments eGFR (test code = eGFR) 127 [place] 447990-11-21 20:08:00 Test Item Value Reference Range Interpretation Comments Total Protein (test code = Total 6.3 6.4-8.4 Protein) [place] 447990-11-21 20:08:00 Test Item Value Reference Range Interpretation Comments Albumin Lvl (test code = Albumin Lvl) 3.2 3.5-5.0 [place] 447990-11-21 20:08:00 Test Item Value Reference Range Interpretation Comments ALT (test code = ALT) 314 See_Comment [Auto mated message] The system which ge nerated this result transmit jeremías reference range : <=65. The reference range was not used to interpr et this result as vernell l/abnormal. [facility] [id number] 20:08:00 Test Item Value Reference Range Interpretation Comments AST (test code = AST) 322 See_Comment [Auto mated message] The system which ge nerated this result transmit jeremías reference range : <=37. The reference range was not used to interpr et this result as vernell l/abnormal. [facility] [id number] 20:08:00 Test Item Value Reference Range Interpretation Comments Alk Phos (test code = Alk Phos) 144 39-136 [facility] [id number] 20:08:00 Test Item Value Reference Range Interpretation Comments Bili Total (test code = Bili Total) 1.4 0.2-1.3 [facility]2020-11-21 20:08:00 Test Item Value Reference Range Interpretation Comments Bili Direct (test code 0.5 See_Comment [Aut omated message] The = Bili Direct) system which generated this result tra nsmitted reference range : <=0.3. The reference r daniel was not used to int erpret this result as vernell l/abnormal. [facility] [id number] 20:08:00 Test Item Value Reference Range Interpretation Comments Bili Indirect (test 0.9 See_Comment [Automa jeremías message] The code = Bili Indirect) system which generated this result tra nsmitted reference range : <=1.0. The reference r daniel was not used to int erpret this result as normal/abnormal . [facility] [employer] [id number] 20:08:00 Test Item Value Reference Range Interpretation Comments Globulin (test code = Globulin) 3.1 2.7-4.2 [facility] [id number] 20:08:00 Test Item Value Reference Range Interpretation Comments A/G Ratio (test code = A/G Ratio) 1.0 1 0.7-1.6 [facility] [id number] 20:08:00 Test Item Value Reference Range Interpretation Comments Lactic Acid Lvl (test code = Lactic 0.7 0.5-2.2 Acid Lvl) [facility] [id number] 20:08:00 Test Item Value Reference Range Interpretation Comments Magnesium Lvl (test code = Magnesium 1.9 1.8-2.4 Lvl) [facility] [id number] 20:08:00 Test Item Value Reference Range Interpretation Comments Phosphorus (test code = Phosphorus) 2.9 2.5-4.5 [facility] [id number] 20:08:00 Test Item Value Reference Range Interpretation Comments Lipase Lvl (test code = Lipase Lvl) 1600 73-393 [facility] [id number] 20:08:00 Test Item Value Reference Range Interpretation Comments Amylase Lvl (test code = Amylase Lvl) 336 25-115 [facility] CenterUcobsqnUGYJTUPUAH0730-26-23 20:08:00 Test Item Value Reference Range Interpretation Comments WBC (test code = WBC) 4.8 3.7-10.4 [facility] CenterQietrulNUSIWUKYWV5291-14-19 20:08:00 Test Item Value Reference Range Interpretation Comments RBC (test code = RBC) 3.60 4.20-5.40 [facility] CenterPgdhljpDAFNUIGGGQ2184-89-90 20:08:00 Test Item Value Reference Range Interpretation Comments Hgb (test code = Hgb) 11.4 12.0-16.0 [facility] CenterWqfhlstXQNJEOKGDI1419-59-70 20:08:00 Test Item Value Reference Range Interpretation Comments Hct (test code = Hct) 33.0 36.0-48.0 [facility] CenterEuuyvdbBCJVUKPUCW5311-70-34 20:08:00 Test Item Value Reference Range Interpretation Comments MCV (test code = MCV) 91.8 80.0-98.0 [facility] CenterOrvseoeCFOWMLUSVP5614-74-63 20:08:00 Test Item Value Reference Range Interpretation Comments MCH (test code = MCH) 31.6 pg 27.0-31.0 [facility] CenterKnoyofwMLCOBBJJFJ2710-27-43 20:08:00 Test Item Value Reference Range Interpretation Comments MCHC (test code = MCHC) 34.4 32.0-36.0 [facility] CenterRxgnaiiJBXUWPZWWM5796-14-61 20:08:00 Test Item Value Reference Range Interpretation Comments RDW (test code = RDW) 12.5 11.5-14.5 [facility] CenterJbhadkrXDVIZMACJK9793-26-66 20:08:00 Test Item Value Reference Range Interpretation Comments Platelet (test code = Platelet) 166 133-450 [facility] CenterEsysjpiOAHCPCKEZY5308-44-82 20:08:00 Test Item Value Reference Range Interpretation Comments MPV (test code = MPV) 8.8 7.4-10.4 [facility] CenterSoshhcxJJBHASCRYF2304-16-59 20:08:00 Test Item Value Reference Range Interpretation Comments PT (test code = PT) 15.6 s 12.0-14.7 [facility] CenterAbaetknCIJUZGPPFF7536-43-49 20:08:00 Test Item Value Reference Range Interpretation Comments INR (test code = INR) 1.23 1 0.85-1.17 [facility] CenterHsmbxakTMHAEQJHQX6146-88-85 20:08:00 Test Item Value Reference Range Interpretation Comments Segs (test code = Segs) 70.9 45.0-75.0 [facility] CenterPpakksnMOKDQJBQPF8257-14-33 20:08:00 Test Item Value Reference Range Interpretation Comments Lymphocytes (test code = Lymphocytes) 18.2 20.0-40.0 [facility] CenterBnxhkwiNMCBHEZKFW0519-46-24 20:08:00 Test Item Value Reference Range Interpretation Comments Monocytes (test code = Monocytes) 9.4 2.0-12.0 [place] 235960-11-21 20:08:00 Test Item Value Reference Range Interpretation Comments Eosinophils (test code = 1.0 See_Comment [A utomated message] The Eosinophils) system which ge nerated this result tra nsmitted reference range : <=4.0. The reference r daniel was not used to int erpret this result as normal/abnormal . [facility] CenterBfkmwzsEJNLHPXEAP6188-42-67 20:08:00 Test Item Value Reference Range Interpretation Comments Basophils (test code = 0.5 See_Comment [Aut omated message] The Basophils) system which ge nerated this result tra nsmitted reference range : <=1.0. The reference r daniel was not used to int erpret this result as normal/abnormal . [facility] CenterFyfmttnMRNOXPCLSB2173-44-51 20:08:00 Test Item Value Reference Range Interpretation Comments Neutrophils # (test code = Neutrophils 3.4 1.5-8.1 #) [facility] CenterNloufhqKBBTWLPXCJ5193-74-78 20:08:00 Test Item Value Reference Range Interpretation Comments Lymphocytes # (test code = Lymphocytes 0.9 1.0-5.5 #) [place] 235960-11-21 20:08:00 Test Item Value Reference Range Interpretation Comments Monocytes # (test code 0.4 See_Comment [Aut omated message] The = Monocytes #) system which generated this result tra nsmitted reference range : <=0.8. The reference r daniel was not used to int erpret this result as normal/abnormal . [place] 659720-11-21 20:08:00 Test Item Value Reference Range Interpretation Comments LDL (Calculated) (test code = LDL 70 (Calculated)) [place] 659720-11-21 20:08:00 Test Item Value Reference Range Interpretation Comments Trig (test code = Trig) 50 [place] [address]-11-21 20:08:00 Test Item Value Reference Range Interpretation Comments Chol (test code = Chol) 140 [facility]FdejjrcUQGVAE1307-33-76 20:08:00 Test Item Value Reference Range Interpretation Comments HDL (test code = HDL) 60 [place] 659720-11-21 20:08:00 Test Item Value Reference Range Interpretation Comments CHD Risk (test code = CHD Risk) 2.33 1 3.90-5.80 [place] [address]-11-21 20:08:00 Test Item Value Reference Range Interpretation Comments VLDL (test code = VLDL) 10 1 [place] 447990-11-21 20:08:00 Test Item Value Reference Range Interpretation Comments Glucose Lvl (test code = Glucose Lvl) 100 70-99 [place] 447990-11-21 20:08:00 Test Item Value Reference Range Interpretation Comments BUN (test code = BUN) 6 7-22 [place] 447990-11-21 20:08:00 Test Item Value Reference Range Interpretation Comments Creatinine Lvl (test code = Creatinine 0.52 0.50-1.40 Lvl) [facility]2020-11-21 20:08:00 Test Item Value Reference Range Interpretation Comments Sodium Lvl (test code = Sodium Lvl) 138 135-145 [place] 447990-11-21 20:08:00 Test Item Value Reference Range Interpretation Comments Potassium Lvl (test code = Potassium 3.5 3.5-5.1 Lvl) [place] 447990-11-21 20:08:00 Test Item Value Reference Range Interpretation Comments Chloride Lvl (test code = Chloride Lvl) 109 95-109 [place] 447990-11-21 20:08:00 Test Item Value Reference Range Interpretation Comments CO2 (test code = CO2) 25 24-32 [facility]2020-11-21 20:08:00 Test Item Value Reference Range Interpretation Comments AGAP (test code = AGAP) 7.5 10.0-20.0 [facility]2020-11-21 20:08:00 Test Item Value Reference Range Interpretation Comments eGFR (test code = eGFR) 127 [place] [address]-11-21 20:08:00 Test Item Value Reference Range Interpretation Comments Total Protein (test code = Total 6.3 6.4-8.4 Protein) [address]11-21 20:08:00 Test Item Value Reference Range Interpretation Comments Albumin Lvl (test code = Albumin Lvl) 3.2 3.5-5.0 [place] [address]-11-21 20:08:00 Test Item Value Reference Range Interpretation Comments ALT (test code = ALT) 314 See_Comment [Auto mated message] The system which ge nerated this result transmit jeremías reference range : <=65. The reference range was not used to interpr et this result as vernell l/abnormal. [address]11-21 20:08:00 Test Item Value Reference Range Interpretation Comments AST (test code = AST) 322 See_Comment [Auto mated message] The system which ge nerated this result transmit jeremías reference range : <=37. The reference range was not used to interpr et this result as vernell l/abnormal. [place] [address]-11-21 20:08:00 Test Item Value Reference Range Interpretation Comments Alk Phos (test code = Alk Phos) 144 39-136 [place] [address]-11-21 20:08:00 Test Item Value Reference Range Interpretation Comments Bili Total (test code = Bili Total) 1.4 0.2-1.3 [address]11-21 20:08:00 Test Item Value Reference Range Interpretation Comments Bili Direct (test code 0.5 See_Comment [Aut omated message] The = Bili Direct) system which generated this result tra nsmitted reference range : <=0.3. The reference r daniel was not used to int erpret this result as vernell l/abnormal. [address]11-21 20:08:00 Test Item Value Reference Range Interpretation Comments Bili Indirect (test 0.9 See_Comment [Automa jeremías message] The code = Bili Indirect) system which generated this result tra nsmitted reference range : <=1.0. The reference r daniel was not used to int erpret this result as normal/abnormal . [facility] [id number] 20:08:00 Test Item Value Reference Range Interpretation Comments Globulin (test code = Globulin) 3.1 2.7-4.[address] [facility] [id number] 20:08:00 Test Item Value Reference Range Interpretation Comments A/G Ratio (test code = A/G Ratio) 1.0 1 0.7-1.[address] [facility] [id number] 20:08:00 Test Item Value Reference Range Interpretation Comments Lactic Acid Lvl (test code = Lactic 0.7 0.5-2.2 Acid Lvl) [facility] [id number] 20:08:00 Test Item Value Reference Range Interpretation Comments Magnesium Lvl (test code = Magnesium 1.9 1.8-2.4 Lvl) [facility] [id number] 20:08:00 Test Item Value Reference Range Interpretation Comments Phosphorus (test code = Phosphorus) 2.9 2.5-4.[address] [facility] [id number] 20:08:00 Test Item Value Reference Range Interpretation Comments Lipase Lvl (test code = Lipase Lvl) 1600 73-[address] [facility] [id number] 20:08:00 Test Item Value Reference Range Interpretation Comments Amylase Lvl (test code = Amylase Lvl) 336 25-115 [facility]KyxumhdQHTYNYAOJR9992-86-77 20:08:00 Test Item Value Reference Range Interpretation Comments WBC (test code = WBC) 4.8 3.7-10.4 [place] 235960-11-21 20:08:00 Test Item Value Reference Range Interpretation Comments RBC (test code = RBC) 3.60 4.20-5.40 [place] 235960-11-21 20:08:00 Test Item Value Reference Range Interpretation Comments Hgb (test code = Hgb) 11.4 12.0-16.0 [place] 235960-11-21 20:08:00 Test Item Value Reference Range Interpretation Comments Hct (test code = Hct) 33.0 36.0-48.0 [place] 235960-11-21 20:08:00 Test Item Value Reference Range Interpretation Comments MCV (test code = MCV) 91.8 80.0-98.0 [place] 235960-11-21 20:08:00 Test Item Value Reference Range Interpretation Comments MCH (test code = MCH) 31.6 pg 27.0-31.0 [facility] CenterAbnoaopRWVQINENZR9020-41-76 20:08:00 Test Item Value Reference Range Interpretation Comments MCHC (test code = MCHC) 34.4 32.0-36.0 [facility] CenterPmijfdqHEFDGOQHSA6967-14-41 20:08:00 Test Item Value Reference Range Interpretation Comments RDW (test code = RDW) 12.5 11.5-14.5 [facility] CenterTlpfxblPEXNTWQAWN6048-06-35 20:08:00 Test Item Value Reference Range Interpretation Comments Platelet (test code = Platelet) 166 133-450 [facility] CenterRgnlvqzTSNEINSUGC8863-88-56 20:08:00 Test Item Value Reference Range Interpretation Comments MPV (test code = MPV) 8.8 7.4-10.4 [facility] CenterRboyylqWJAFTSKTUJ4686-44-69 20:08:00 Test Item Value Reference Range Interpretation Comments PT (test code = PT) 15.6 s 12.0-14.7 [facility] CenterCmduxuwLPJKCSKBQW8859-53-65 20:08:00 Test Item Value Reference Range Interpretation Comments INR (test code = INR) 1.23 1 0.85-1.17 [facility] CenterXdrveajSLOOOSBIWS3010-81-81 20:08:00 Test Item Value Reference Range Interpretation Comments Segs (test code = Segs) 70.9 45.0-75.0 [facility] CenterQthqoqrHRNKMVCRZX4194-00-39 20:08:00 Test Item Value Reference Range Interpretation Comments Lymphocytes (test code = Lymphocytes) 18.2 20.0-40.0 [facility] CenterBnynzpwLEMJGGTKOL1942-02-57 20:08:00 Test Item Value Reference Range Interpretation Comments Monocytes (test code = Monocytes) 9.4 2.0-12.0 [place] 235960-11-21 20:08:00 Test Item Value Reference Range Interpretation Comments Eosinophils (test code = 1.0 See_Comment [A utomated message] The Eosinophils) system which ge nerated this result tra nsmitted reference range : <=4.0. The reference r daniel was not used to int erpret this result as normal/abnormal . [facility] CenterPpgajdbFXAWQEVYJX3692-73-09 20:08:00 Test Item Value Reference Range Interpretation Comments Basophils (test code = 0.5 See_Comment [Aut omated message] The Basophils) system which ge nerated this result tra nsmitted reference range : <=1.0. The reference r daniel was not used to int erpret this result as normal/abnormal . [facility] HospitalLgdhtcgRNXFLCCQMN3409-54-34 20:08:00 Test Item Value Reference Range Interpretation Comments Neutrophils # (test code = Neutrophils 3.4 1.5-8.1 #) [facility] CenterRfecdhrKBQRFKUZES6368-98-06 20:08:00 Test Item Value Reference Range Interpretation Comments Lymphocytes # (test code = Lymphocytes 0.9 1.0-5.5 #) [facility] CenterMdvphdeHZXXBMZIWX1777-22-75 20:08:00 Test Item Value Reference Range Interpretation Comments Monocytes # (test code 0.4 See_Comment [Aut omated message] The = Monocytes #) system which generated this result tra nsmitted reference range : <=0.8. The reference r daniel was not used to int erpret this result as normal/abnormal . [facility]XubcepxWJBHOP0974-76-91 20:08:00 Test Item Value Reference Range Interpretation Comments LDL (Calculated) (test code = LDL 70 (Calculated)) [facility] HospitalQzbyjxbSKLLSD3922-93-91 20:08:00 Test Item Value Reference Range Interpretation Comments Trig (test code = Trig) [address] [facility] HospitalVdmvwfvRFPCZB2253-25-30 20:08:00 Test Item Value Reference Range Interpretation Comments Chol (test code = Chol) [address] [facility] HospitalUsdbnokPXCIIG3280-91-93 20:08:00 Test Item Value Reference Range Interpretation Comments HDL (test code = HDL) [address] [facility] [address] HospitalCguxsamWZSYHJ5085-82-74 20:08:00 Test Item Value Reference Range Interpretation Comments CHD Risk (test code = CHD Risk) 2.33 1 3.90-5.80 [facility] HospitalVmjbvvfVUQKGP4073-22-16 20:08:00 Test Item Value Reference Range Interpretation Comments VLDL (test code = VLDL) 10 1 [facility] HospitalTamatem Inc[facility] [id number] 20:08:00 Test Item Value Reference Range Interpretation Comments Glucose Lvl (test code = Glucose Lvl) 100 70-99 [facility] [id number] 20:08:00 Test Item Value Reference Range Interpretation Comments BUN (test code = BUN) 6 7-22 [place] [address]-11-21 20:08:00 Test Item Value Reference Range Interpretation Comments Creatinine Lvl (test code = Creatinine 0.52 0.50-1.40 Lvl) [place] 447990-11-21 20:08:00 Test Item Value Reference Range Interpretation Comments Sodium Lvl (test code = Sodium Lvl) 138 135-145 [place] 447990-11-21 20:08:00 Test Item Value Reference Range Interpretation Comments Potassium Lvl (test code = Potassium 3.5 3.5-5.1 Lvl) [place] [address]-11-21 20:08:00 Test Item Value Reference Range Interpretation Comments Chloride Lvl (test code = Chloride Lvl) 109 95-109 [place] [address]-11-21 20:08:00 Test Item Value Reference Range Interpretation Comments CO2 (test code = CO2) 25 24-32 [place] [address]-11-21 20:08:00 Test Item Value Reference Range Interpretation Comments AGAP (test code = AGAP) 7.5 10.0-20.0 [place] 447990-11-21 20:08:00 Test Item Value Reference Range Interpretation Comments eGFR (test code = eGFR) 127 [place] [address]-11-21 20:08:00 Test Item Value Reference Range Interpretation Comments Total Protein (test code = Total 6.3 6.4-8.4 Protein) [place] [address]-11-21 20:08:00 Test Item Value Reference Range Interpretation Comments Albumin Lvl (test code = Albumin Lvl) 3.2 3.5-5.0 [place] 447990-11-21 20:08:00 Test Item Value Reference Range Interpretation Comments ALT (test code = ALT) 314 See_Comment [Auto mated message] The system which ge nerated this result transmit jeremías reference range : <=65. The reference range was not used to interpr et this result as vernell l/abnormal. [facility] [id number] 20:08:00 Test Item Value Reference Range Interpretation Comments AST (test code = AST) 322 See_Comment [Auto mated message] The system which ge nerated this result transmit jeremías reference range : <=37. The reference range was not used to interpr et this result as vernell l/abnormal. [place] 447990-11-21 20:08:00 Test Item Value Reference Range Interpretation Comments Alk Phos (test code = Alk Phos) 144 39-136 [place] 447990-11-21 20:08:00 Test Item Value Reference Range Interpretation Comments Bili Total (test code = Bili Total) 1.4 0.2-1.3 [place] 447990-11-21 20:08:00 Test Item Value Reference Range Interpretation Comments Bili Direct (test code 0.5 See_Comment [Aut omated message] The = Bili Direct) system which generated this result tra nsmitted reference range : <=0.3. The reference r daniel was not used to int erpret this result as vernell l/abnormal. [facility] [id number] 20:08:00 Test Item Value Reference Range Interpretation Comments Bili Indirect (test 0.9 See_Comment [Automa jeremías message] The code = Bili Indirect) system which generated this result tra nsmitted reference range : <=1.0. The reference r daniel was not used to int erpret this result as normal/abnormal . [facility] [id number] 20:08:00 Test Item Value Reference Range Interpretation Comments Globulin (test code = Globulin) 3.1 2.7-4.[address] [facility] [id number] 20:08:00 Test Item Value Reference Range Interpretation Comments A/G Ratio (test code = A/G Ratio) 1.0 1 0.7-1.[address] [facility] [id number] 20:08:00 Test Item Value Reference Range Interpretation Comments Lactic Acid Lvl (test code = Lactic 0.7 0.5-2.2 Acid Lvl) [facility] HospitalWalkHubNICHOLAS VILLE 49922FBZTF7973-30-74 20:08:00 Test Item Value Reference Range Interpretation Comments Magnesium Lvl (test code = Magnesium 1.9 1.8-2.4 Lvl) [place] 447990-11-21 20:08:00 Test Item Value Reference Range Interpretation Comments Phosphorus (test code = Phosphorus) 2.9 2.5-4.[address] [facility] [id number] 20:08:00 Test Item Value Reference Range Interpretation Comments Lipase Lvl (test code = Lipase Lvl) 1600 73393 [facility]2020-11-21 20:08:00 Test Item Value Reference Range Interpretation Comments Amylase Lvl (test code = Amylase Lvl) 336 25-115 [facility] HospitalCjeaghkTOGCVKRJTR1733-79-98 20:08:00 Test Item Value Reference Range Interpretation Comments WBC (test code = WBC) 4.8 3.7-10.4 [facility] HospitalVcrctziGVHTTXFJUW3627-14-69 20:08:00 Test Item Value Reference Range Interpretation Comments RBC (test code = RBC) 3.60 4.20-5.40 [facility] HospitalKpnyytxEJICBLZSZS7499-74-77 20:08:00 Test Item Value Reference Range Interpretation Comments Hgb (test code = Hgb) 11.4 12.0-16.[address] [facility] [address] HospitalBowncamNMZSYNIBUC1894-50-35 20:08:00 Test Item Value Reference Range Interpretation Comments Hct (test code = Hct) 33.0 36.0-48.0 [facility]VfatdhaONLFVAPXWH2450-78-85 20:08:00 Test Item Value Reference Range Interpretation Comments MCV (test code = MCV) 91.8 80.0-98.[address] [facility] HospitalPzinsxlDBIHTRYQVN5846-84-40 20:08:00 Test Item Value Reference Range Interpretation Comments MCH (test code = MCH) 31.6 pg 27.0-31.[address] [facility] [address] HospitalDlamscuOVCLMIUCWT2873-67-01 20:08:00 Test Item Value Reference Range Interpretation Comments MCHC (test code = MCHC) 34.4 32.0-36.[address] [facility] HospitalWqjxmaiHEWUJZKCGZ0712-33-20 20:08:00 Test Item Value Reference Range Interpretation Comments RDW (test code = RDW) 12.5 11.5-14.[address] [facility] HospitalLvtysluMDZYIMUBTO7719-55-91 20:08:00 Test Item Value Reference Range Interpretation Comments Platelet (test code = Platelet) 166 133-[address] [facility] HospitalOaclhqvAVHYSLCSIM6279-35-96 20:08:00 Test Item Value Reference Range Interpretation Comments MPV (test code = MPV) 8.8 7.4-10.[address] [facility] HospitalUgfwmdoJXFQYACFZA2518-33-24 20:08:00 Test Item Value Reference Range Interpretation Comments PT (test code = PT) 15.6 s 12.0-14.[address] [facility] HospitalSpoalvhDJJRFSDKJC6217-89-39 20:08:00 Test Item Value Reference Range Interpretation Comments INR (test code = INR) 1.23 1 0.85-1.17 [facility] CenterSmlbqpgXJPTNRSDOW8033-22-67 20:08:00 Test Item Value Reference Range Interpretation Comments Segs (test code = Segs) 70.9 45.0-75.0 [facility] CenterDdmebguTZGDXEMBON2569-12-64 20:08:00 Test Item Value Reference Range Interpretation Comments Lymphocytes (test code = Lymphocytes) 18.2 20.0-40.0 [facility] CenterVnbnehwXOKJQPAMOM3963-20-38 20:08:00 Test Item Value Reference Range Interpretation Comments Monocytes (test code = Monocytes) 9.4 2.0-12.0 [facility] CenterYebcbpfOVVKVVOENN7130-95-20 20:08:00 Test Item Value Reference Range Interpretation Comments Eosinophils (test code = 1.0 See_Comment [A utomated message] The Eosinophils) system which ge nerated this result tra nsmitted reference range : <=4.0. The reference r daniel was not used to int erpret this result as normal/abnormal . [facility] CenterKnwetdhXQQOILQIFI5583-90-71 20:08:00 Test Item Value Reference Range Interpretation Comments Basophils (test code = 0.5 See_Comment [Aut omated message] The Basophils) system which ge nerated this result tra nsmitted reference range : <=1.0. The reference r daniel was not used to int erpret this result as normal/abnormal . [facility] CenterBfcukecGZARMCCLTC1579-06-31 20:08:00 Test Item Value Reference Range Interpretation Comments Neutrophils # (test code = Neutrophils 3.4 1.5-8.1 #) [facility] CenterWtezyvsHNEABELKTO7425-26-30 20:08:00 Test Item Value Reference Range Interpretation Comments Lymphocytes # (test code = Lymphocytes 0.9 1.0-5.5 #) [facility] CenterWyfixriWKKXQUTYJS3296-82-04 20:08:00 Test Item Value Reference Range Interpretation Comments Monocytes # (test code 0.4 See_Comment [Aut omated message] The = Monocytes #) system which generated this result tra nsmitted reference range : <=0.8. The reference r daniel was not used to int erpret this result as normal/abnormal . [facility] HospitalUsvoqtvQLZEJE4292-27-16 20:08:00 Test Item Value Reference Range Interpretation Comments LDL (Calculated) (test code = LDL 70 (Calculated)) [facility] HospitalAyffeetXTOZGM0733-85-16 20:08:00 Test Item Value Reference Range Interpretation Comments Trig (test code = Trig) 50 [facility] HospitalJnkopouAFRHGG7839-27-18 20:08:00 Test Item Value Reference Range Interpretation Comments Chol (test code = Chol) 140 [facility] HospitalXjcwzceSMBSWX8826-05-04 20:08:00 Test Item Value Reference Range Interpretation Comments HDL (test code = HDL) 60 [facility] HospitalWbyajvoKNGVCL1326-40-11 20:08:00 Test Item Value Reference Range Interpretation Comments CHD Risk (test code = CHD Risk) 2.33 1 3.90-5.80 [facility] HospitalLljfsedZRHHPR3352-00-03 20:08:00 Test Item Value Reference Range Interpretation Comments VLDL (test code = VLDL) 10 1 [facility] [employer] [id number] 20:08:00 Test Item Value Reference Range Interpretation Comments Glucose Lvl (test code = Glucose Lvl) 100 70-99 [facility] [employer] [id number] 20:08:00 Test Item Value Reference Range Interpretation Comments BUN (test code = BUN) 6 7-22 [facility] [employer] [id number] 20:08:00 Test Item Value Reference Range Interpretation Comments Creatinine Lvl (test code = Creatinine 0.52 0.50-1.40 Lvl) [facility] [employer] [id number] 20:08:00 Test Item Value Reference Range Interpretation Comments Sodium Lvl (test code = Sodium Lvl) 138 135-145 [facility] [employer] [id number] 20:08:00 Test Item Value Reference Range Interpretation Comments Potassium Lvl (test code = Potassium 3.5 3.5-5.1 Lvl) [facility] [employer] RJHOF6884-00-15 20:08:00 Test Item Value Reference Range Interpretation Comments Chloride Lvl (test code = Chloride Lvl) 109 95-109 [facility] [employer] [id number] 20:08:00 Test Item Value Reference Range Interpretation Comments CO2 (test code = CO2) 25 24-32 [facility] HospitalT[facility] Inc[facility] [id number] 20:08:00 Test Item Value Reference Range Interpretation Comments AGAP (test code = AGAP) 7.5 10.0-20.0 [place] [address]-11-21 20:08:00 Test Item Value Reference Range Interpretation Comments eGFR (test code = eGFR) 127 [place] [address]-11-21 20:08:00 Test Item Value Reference Range Interpretation Comments Total Protein (test code = Total 6.3 6.4-8.4 Protein) [address]11-21 20:08:00 Test Item Value Reference Range Interpretation Comments Albumin Lvl (test code = Albumin Lvl) 3.2 3.5-5.0 [place] [address]-11-21 20:08:00 Test Item Value Reference Range Interpretation Comments ALT (test code = ALT) 314 See_Comment [Auto mated message] The system which ge nerated this result transmit jeremías reference range : <=65. The reference range was not used to interpr et this result as vernell l/abnormal. [address]11-21 20:08:00 Test Item Value Reference Range Interpretation Comments AST (test code = AST) 322 See_Comment [Auto mated message] The system which ge nerated this result transmit jeremías reference range : <=37. The reference range was not used to interpr et this result as vernell l/abnormal. [place] [address]-11-21 20:08:00 Test Item Value Reference Range Interpretation Comments Alk Phos (test code = Alk Phos) 144 39-136 [place] [address]-11-21 20:08:00 Test Item Value Reference Range Interpretation Comments Bili Total (test code = Bili Total) 1.4 0.2-1.3 [address]11-21 20:08:00 Test Item Value Reference Range Interpretation Comments Bili Direct (test code 0.5 See_Comment [Aut omated message] The = Bili Direct) system which generated this result tra nsmitted reference range : <=0.3. The reference r daniel was not used to int erpret this result as vernell l/abnormal. [address]11-21 20:08:00 Test Item Value Reference Range Interpretation Comments Bili Indirect (test 0.9 See_Comment [Automa jeremías message] The code = Bili Indirect) system which generated this result tra nsmitted reference range : <=1.0. The reference r daniel was not used to int erpret this result as normal/abnormal . [facility]2020-11-21 20:08:00 Test Item Value Reference Range Interpretation Comments Globulin (test code = Globulin) 3.1 2.7-4.2 [place] 447990-11-21 20:08:00 Test Item Value Reference Range Interpretation Comments A/G Ratio (test code = A/G Ratio) 1.0 1 0.7-1.6 [place] 447990-11-21 20:08:00 Test Item Value Reference Range Interpretation Comments Lactic Acid Lvl (test code = Lactic 0.7 0.5-2.2 Acid Lvl) [place] 447990-11-21 20:08:00 Test Item Value Reference Range Interpretation Comments Magnesium Lvl (test code = Magnesium 1.9 1.8-2.4 Lvl) [place] 447990-11-21 20:08:00 Test Item Value Reference Range Interpretation Comments Phosphorus (test code = Phosphorus) 2.9 2.5-4.5 [place] 447990-11-21 20:08:00 Test Item Value Reference Range Interpretation Comments Lipase Lvl (test code = Lipase Lvl) 1600 73-393 [facility]2020-11-21 20:08:00 Test Item Value Reference Range Interpretation Comments Amylase Lvl (test code = Amylase Lvl) 336 25-115 [place] 235960-11-21 20:08:00 Test Item Value Reference Range Interpretation Comments WBC (test code = WBC) 4.8 3.7-10.4 [place] 235960-11-21 20:08:00 Test Item Value Reference Range Interpretation Comments RBC (test code = RBC) 3.60 4.20-5.40 [place] 235960-11-21 20:08:00 Test Item Value Reference Range Interpretation Comments Hgb (test code = Hgb) 11.4 12.0-16.0 [place] 235960-11-21 20:08:00 Test Item Value Reference Range Interpretation Comments Hct (test code = Hct) 33.0 36.0-48.0 [place] 235960-11-21 20:08:00 Test Item Value Reference Range Interpretation Comments MCV (test code = MCV) 91.8 80.0-98.0 [facility] CenterYrcdlowVNNZPYGOWT1454-81-14 20:08:00 Test Item Value Reference Range Interpretation Comments MCH (test code = MCH) 31.6 pg 27.0-31.0 [facility] CenterKoardhlDEWZTNCONU5560-90-79 20:08:00 Test Item Value Reference Range Interpretation Comments MCHC (test code = MCHC) 34.4 32.0-36.0 [facility] CenterSvroikyFUWLJGLRPA5297-38-49 20:08:00 Test Item Value Reference Range Interpretation Comments RDW (test code = RDW) 12.5 11.5-14.5 [facility] CenterPlurjhnGUZMFLKOVS0970-65-21 20:08:00 Test Item Value Reference Range Interpretation Comments Platelet (test code = Platelet) 166 133-450 [facility] CenterPvfvwpiMSFNNOPNLV8563-22-74 20:08:00 Test Item Value Reference Range Interpretation Comments MPV (test code = MPV) 8.8 7.4-10.4 [facility] CenterOwxvixgATVCBSCXJM5476-76-98 20:08:00 Test Item Value Reference Range Interpretation Comments PT (test code = PT) 15.6 s 12.0-14.7 [facility] CenterNidfimfFRTYFHPFCN3134-61-65 20:08:00 Test Item Value Reference Range Interpretation Comments INR (test code = INR) 1.23 1 0.85-1.17 [facility] CenterQvftfycUYJJRCRCKG3543-50-91 20:08:00 Test Item Value Reference Range Interpretation Comments Segs (test code = Segs) 70.9 45.0-75.0 [facility] CenterRyikfnmXEWVRIPMHX8663-64-84 20:08:00 Test Item Value Reference Range Interpretation Comments Lymphocytes (test code = Lymphocytes) 18.2 20.0-40.0 [facility] CenterYxbokzgWQWSMEXOXK3259-09-27 20:08:00 Test Item Value Reference Range Interpretation Comments Monocytes (test code = Monocytes) 9.4 2.0-12.0 [facility] CenterIkjlnzePRIHUMYIGI3543-78-24 20:08:00 Test Item Value Reference Range Interpretation Comments Eosinophils (test code = 1.0 See_Comment [A utomated message] The Eosinophils) system which ge nerated this result tra nsmitted reference range : <=4.0. The reference r daniel was not used to int erpret this result as normal/abnormal . [facility] CenterHhwgtacFDJEHEJDAI0714-41-08 20:08:00 Test Item Value Reference Range Interpretation Comments Basophils (test code = 0.5 See_Comment [Aut omated message] The Basophils) system which ge nerated this result tra nsmitted reference range : <=1.0. The reference r daniel was not used to int erpret this result as normal/abnormal . [facility] CenterSpniygeFAFXAEMOEF3859-42-35 20:08:00 Test Item Value Reference Range Interpretation Comments Neutrophils # (test code = Neutrophils 3.4 1.5-8.1 #) [facility] CenterUacabviHKQJOWQHVH8992-37-78 20:08:00 Test Item Value Reference Range Interpretation Comments Lymphocytes # (test code = Lymphocytes 0.9 1.0-5.5 #) [facility] CenterCovywkrPFTILHWDPV4081 20:08:00 Test Item Value Reference Range Interpretation Comments Monocytes # (test code 0.4 See_Comment [Aut omated message] The = Monocytes #) system which generated this result tra nsmitted reference range : <=0.8. The reference r daniel was not used to int erpret this result as normal/abnormal . [facility] HospitalVeedgvaTMQCQK6294-70-30 20:08:00 Test Item Value Reference Range Interpretation Comments LDL (Calculated) (test code = LDL 70 (Calculated)) [place] 659720-11-21 20:08:00 Test Item Value Reference Range Interpretation Comments Trig (test code = Trig) [address] [facility] [address] HospitalGtrfidzNYOYXV8475-86-22 20:08:00 Test Item Value Reference Range Interpretation Comments Chol (test code = Chol) [address] [facility] HospitalYrmtujeJLZZRY4451-77-89 20:08:00 Test Item Value Reference Range Interpretation Comments HDL (test code = HDL) [address] [facility] HospitalQjgcwswPWFKCB0019-70-31 20:08:00 Test Item Value Reference Range Interpretation Comments CHD Risk (test code = CHD Risk) 2.33 1 3.90-5.[address] [facility] HospitalQiiwrjbFUIJKG1176-34-34 20:08:00 Test Item Value Reference Range Interpretation Comments VLDL (test code = VLDL) 10 1 [facility] [id number] 20:08:00 Test Item Value Reference Range Interpretation Comments Glucose Lvl (test code = Glucose Lvl) 100 70-99 [facility] [id number] 20:08:00 Test Item Value Reference Range Interpretation Comments BUN (test code = BUN) 6 7-22 [place] 447990-11-21 20:08:00 Test Item Value Reference Range Interpretation Comments Creatinine Lvl (test code = Creatinine 0.52 0.50-1.40 Lvl) [facility]2020-11-21 20:08:00 Test Item Value Reference Range Interpretation Comments Sodium Lvl (test code = Sodium Lvl) 138 135-145 [place] 447990-11-21 20:08:00 Test Item Value Reference Range Interpretation Comments Potassium Lvl (test code = Potassium 3.5 3.5-5.1 Lvl) [place] 447990-11-21 20:08:00 Test Item Value Reference Range Interpretation Comments Chloride Lvl (test code = Chloride Lvl) 109 95-109 [place] 447990-11-21 20:08:00 Test Item Value Reference Range Interpretation Comments CO2 (test code = CO2) 25 24-32 [place] 447990-11-21 20:08:00 Test Item Value Reference Range Interpretation Comments AGAP (test code = AGAP) 7.5 10.0-20.0 [place] 447990-11-21 20:08:00 Test Item Value Reference Range Interpretation Comments eGFR (test code = eGFR) 127 [facility]2020-11-21 20:08:00 Test Item Value Reference Range Interpretation Comments Total Protein (test code = Total 6.3 6.4-8.4 Protein) [place] 447990-11-21 20:08:00 Test Item Value Reference Range Interpretation Comments Albumin Lvl (test code = Albumin Lvl) 3.2 3.5-5.0 [place] 447990-11-21 20:08:00 Test Item Value Reference Range Interpretation Comments ALT (test code = ALT) 314 See_Comment [Auto mated message] The system which ge nerated this result transmit jeremías reference range : <=65. The reference range was not used to interpr et this result as vernell l/abnormal. [facility] [id number] 20:08:00 Test Item Value Reference Range Interpretation Comments AST (test code = AST) 322 See_Comment [Auto mated message] The system which ge nerated this result transmit jeremías reference range : <=37. The reference range was not used to interpr et this result as vernell l/abnormal. [place] 447990-11-21 20:08:00 Test Item Value Reference Range Interpretation Comments Alk Phos (test code = Alk Phos) 144 39-136 [place] [address]-11-21 20:08:00 Test Item Value Reference Range Interpretation Comments Bili Total (test code = Bili Total) 1.4 0.2-1.3 [place] [address]-11-21 20:08:00 Test Item Value Reference Range Interpretation Comments Bili Direct (test code 0.5 See_Comment [Aut omated message] The = Bili Direct) system which generated this result tra nsmitted reference range : <=0.3. The reference r daniel was not used to int erpret this result as vernell l/abnormal. [place] 447990-11-21 20:08:00 Test Item Value Reference Range Interpretation Comments Bili Indirect (test 0.9 See_Comment [Automa jeremías message] The code = Bili Indirect) system which generated this result tra nsmitted reference range : <=1.0. The reference r daniel was not used to int erpret this result as normal/abnormal . [place] 447990-11-21 20:08:00 Test Item Value Reference Range Interpretation Comments Globulin (test code = Globulin) 3.1 2.7-4.[address] [facility] [id number] 20:08:00 Test Item Value Reference Range Interpretation Comments A/G Ratio (test code = A/G Ratio) 1.0 1 0.7-1.6 [place] [address]-11-21 20:08:00 Test Item Value Reference Range Interpretation Comments Lactic Acid Lvl (test code = Lactic 0.7 0.5-2.2 Acid Lvl) [place] [address]-11-21 20:08:00 Test Item Value Reference Range Interpretation Comments Magnesium Lvl (test code = Magnesium 1.9 1.8-2.4 Lvl) [place] 447990-11-21 20:08:00 Test Item Value Reference Range Interpretation Comments Phosphorus (test code = Phosphorus) 2.9 2.5-4.5 [place] [address]-11-21 20:08:00 Test Item Value Reference Range Interpretation Comments Lipase Lvl (test code = Lipase Lvl) 1600 73-393 [facility] YEMXO1849-11-59 20:08:00 Test Item Value Reference Range Interpretation Comments Amylase Lvl (test code = Amylase Lvl) 336 25-115 [facility]YrdggkqGPLUENMYCB0186-26-54 20:08:00 Test Item Value Reference Range Interpretation Comments WBC (test code = WBC) 4.8 3.7-10.4 [facility] CenterPdodfznCONOIDBRIT7467-81-10 20:08:00 Test Item Value Reference Range Interpretation Comments RBC (test code = RBC) 3.60 4.20-5.40 [facility] CenterSerwjinFTUTHZXBWR9253-70-93 20:08:00 Test Item Value Reference Range Interpretation Comments Hgb (test code = Hgb) 11.4 12.0-16.0 [facility] CenterNauclirUWLCKAKNXJ5155-80-15 20:08:00 Test Item Value Reference Range Interpretation Comments Hct (test code = Hct) 33.0 36.0-48.0 [facility] CenterOevsjkrYOVZJHSESN0971-08-68 20:08:00 Test Item Value Reference Range Interpretation Comments MCV (test code = MCV) 91.8 80.0-98.0 [facility] CenterRvkbhkzCVJTLOUVIC4825-17-21 20:08:00 Test Item Value Reference Range Interpretation Comments MCH (test code = MCH) 31.6 pg 27.0-31.0 [facility] CenterQmqakfjVQNOIVZAJR9537-73-66 20:08:00 Test Item Value Reference Range Interpretation Comments MCHC (test code = MCHC) 34.4 32.0-36.0 [facility] CenterOugpgbeBIYPNGXLLL5339-48-93 20:08:00 Test Item Value Reference Range Interpretation Comments RDW (test code = RDW) 12.5 11.5-14.5 [facility] CenterOziohbqGSXNGPXQSX3215-58-95 20:08:00 Test Item Value Reference Range Interpretation Comments Platelet (test code = Platelet) 166 133-450 [facility] CenterWllfjbxYASBIOXZKE8966-69-52 20:08:00 Test Item Value Reference Range Interpretation Comments MPV (test code = MPV) 8.8 7.4-10.4 [facility] CenterRuewbynIJBZANJACM9179-69-10 20:08:00 Test Item Value Reference Range Interpretation Comments PT (test code = PT) 15.6 s 12.0-14.7 [facility] CenterNgiqvezFNCLWCGHXP1606-89-99 20:08:00 Test Item Value Reference Range Interpretation Comments INR (test code = INR) 1.23 1 0.85-1.17 [facility] CenterVnuulkgAWXVAZVAPD1091-01-10 20:08:00 Test Item Value Reference Range Interpretation Comments Segs (test code = Segs) 70.9 45.0-75.0 [facility] CenterAmropnvQKPPZFBYDA1176-83-72 20:08:00 Test Item Value Reference Range Interpretation Comments Lymphocytes (test code = Lymphocytes) 18.2 20.0-40.0 [facility] CenterZhzatbhSRIYKVEREZ1659-12-66 20:08:00 Test Item Value Reference Range Interpretation Comments Monocytes (test code = Monocytes) 9.4 2.0-12.0 [facility] CenterOdefyrmOCFZAVKBFB7246-91-85 20:08:00 Test Item Value Reference Range Interpretation Comments Eosinophils (test code = 1.0 See_Comment [A utomated message] The Eosinophils) system which ge nerated this result tra nsmitted reference range : <=4.0. The reference r daniel was not used to int erpret this result as normal/abnormal . [facility] CenterAzokkoeHXSJJIBRWJ6007-31-63 20:08:00 Test Item Value Reference Range Interpretation Comments Basophils (test code = 0.5 See_Comment [Aut omated message] The Basophils) system which ge nerated this result tra nsmitted reference range : <=1.0. The reference r daniel was not used to int erpret this result as normal/abnormal . [facility] CenterJflysisSDTOQAORLY2167-03-41 20:08:00 Test Item Value Reference Range Interpretation Comments Neutrophils # (test code = Neutrophils 3.4 1.5-8.1 #) [facility] CenterCyxdygyYKELJILHJO7162-28-84 20:08:00 Test Item Value Reference Range Interpretation Comments Lymphocytes # (test code = Lymphocytes 0.9 1.0-5.5 #) [facility] CenterSolaxsoUWMZWYQDKI4318-28-35 20:08:00 Test Item Value Reference Range Interpretation Comments Monocytes # (test code 0.4 See_Comment [Aut omated message] The = Monocytes #) system which generated this result tra nsmitted reference range : <=0.8. The reference r daniel was not used to int erpret this result as normal/abnormal . [facility] HospitalZrntlueZDKRGD9124-59-77 20:08:00 Test Item Value Reference Range Interpretation Comments LDL (Calculated) (test code = LDL 70 (Calculated)) [place] [address]-11-21 20:08:00 Test Item Value Reference Range Interpretation Comments Trig (test code = Trig) 50 [place] 659720-11-21 20:08:00 Test Item Value Reference Range Interpretation Comments Chol (test code = Chol) 140 [place] [address]-11-21 20:08:00 Test Item Value Reference Range Interpretation Comments HDL (test code = HDL) 60 [place] [address]-11-21 20:08:00 Test Item Value Reference Range Interpretation Comments CHD Risk (test code = CHD Risk) 2.33 1 3.90-5.80 [place] 659720-11-21 20:08:00 Test Item Value Reference Range Interpretation Comments VLDL (test code = VLDL) 10 1 [place] 447990-11-21 20:08:00 Test Item Value Reference Range Interpretation Comments Glucose Lvl (test code = Glucose Lvl) 100 70-99 [place] 447990-11-21 20:08:00 Test Item Value Reference Range Interpretation Comments BUN (test code = BUN) 6 7-22 [place] 447990-11-21 20:08:00 Test Item Value Reference Range Interpretation Comments Creatinine Lvl (test code = Creatinine 0.52 0.50-1.40 Lvl) [place] 447990-11-21 20:08:00 Test Item Value Reference Range Interpretation Comments Sodium Lvl (test code = Sodium Lvl) 138 135-145 [place] 447990-11-21 20:08:00 Test Item Value Reference Range Interpretation Comments Potassium Lvl (test code = Potassium 3.5 3.5-5.1 Lvl) [place] 447990-11-21 20:08:00 Test Item Value Reference Range Interpretation Comments Chloride Lvl (test code = Chloride Lvl) 109 95-109 [place] 447990-11-21 20:08:00 Test Item Value Reference Range Interpretation Comments CO2 (test code = CO2) 25 24-32 [place] 447990-11-21 20:08:00 Test Item Value Reference Range Interpretation Comments AGAP (test code = AGAP) 7.5 10.0-20.0 [place] 447990-11-21 20:08:00 Test Item Value Reference Range Interpretation Comments eGFR (test code = eGFR) 127 [facility]2020-11-21 20:08:00 Test Item Value Reference Range Interpretation Comments Total Protein (test code = Total 6.3 6.4-8.4 Protein) [place] [address]-11-21 20:08:00 Test Item Value Reference Range Interpretation Comments Albumin Lvl (test code = Albumin Lvl) 3.2 3.5-5.0 [place] 447990-11-21 20:08:00 Test Item Value Reference Range Interpretation Comments ALT (test code = ALT) 314 See_Comment [Auto mated message] The system which ge nerated this result transmit jeremías reference range : <=65. The reference range was not used to interpr et this result as vernell l/abnormal. [facility] [id number] 20:08:00 Test Item Value Reference Range Interpretation Comments AST (test code = AST) 322 See_Comment [Auto mated message] The system which ge nerated this result transmit jeremías reference range : <=37. The reference range was not used to interpr et this result as vernell l/abnormal. [place] [address]-11-21 20:08:00 Test Item Value Reference Range Interpretation Comments Alk Phos (test code = Alk Phos) 144 39-136 [place] 447990-11-21 20:08:00 Test Item Value Reference Range Interpretation Comments Bili Total (test code = Bili Total) 1.4 0.2-1.3 [place] [address]-11-21 20:08:00 Test Item Value Reference Range Interpretation Comments Bili Direct (test code 0.5 See_Comment [Aut omated message] The = Bili Direct) system which generated this result tra nsmitted reference range : <=0.3. The reference r daniel was not used to int erpret this result as vernell l/abnormal. [facility] [id number] 20:08:00 Test Item Value Reference Range Interpretation Comments Bili Indirect (test 0.9 See_Comment [Automa jeremías message] The code = Bili Indirect) system which generated this result tra nsmitted reference range : <=1.0. The reference r daniel was not used to int erpret this result as normal/abnormal . [facility] [id number] 20:08:00 Test Item Value Reference Range Interpretation Comments Globulin (test code = Globulin) 3.1 2.7-4.2 [facility]2020-11-21 20:08:00 Test Item Value Reference Range Interpretation Comments A/G Ratio (test code = A/G Ratio) 1.0 1 0.7-1.6 [place] 447990-11-21 20:08:00 Test Item Value Reference Range Interpretation Comments Lactic Acid Lvl (test code = Lactic 0.7 0.5-2.2 Acid Lvl) [facility]2020-11-21 20:08:00 Test Item Value Reference Range Interpretation Comments Magnesium Lvl (test code = Magnesium 1.9 1.8-2.4 Lvl) [facility]2020-11-21 20:08:00 Test Item Value Reference Range Interpretation Comments Phosphorus (test code = Phosphorus) 2.9 2.5-4.5 [facility]2020-11-21 20:08:00 Test Item Value Reference Range Interpretation Comments Lipase Lvl (test code = Lipase Lvl) 1600 73-[address] [facility] [id number] 20:08:00 Test Item Value Reference Range Interpretation Comments Amylase Lvl (test code = Amylase Lvl) 336 25-115 [facility] CenterYiqwyprYBHHZXMWBE2482-02-54 20:08:00 Test Item Value Reference Range Interpretation Comments WBC (test code = WBC) 4.8 3.7-10.4 [place] 235960-11-21 20:08:00 Test Item Value Reference Range Interpretation Comments RBC (test code = RBC) 3.60 4.20-5.40 [place] 235960-11-21 20:08:00 Test Item Value Reference Range Interpretation Comments Hgb (test code = Hgb) 11.4 12.0-16.0 [place] 235960-11-21 20:08:00 Test Item Value Reference Range Interpretation Comments Hct (test code = Hct) 33.0 36.0-48.0 [place] 235960-11-21 20:08:00 Test Item Value Reference Range Interpretation Comments MCV (test code = MCV) 91.8 80.0-98.0 [place] 235960-11-21 20:08:00 Test Item Value Reference Range Interpretation Comments MCH (test code = MCH) 31.6 pg 27.0-31.0 [place] 235960-11-21 20:08:00 Test Item Value Reference Range Interpretation Comments MCHC (test code = MCHC) 34.4 32.0-36.0 [facility] CenterEwnkirhCRBVUHCZHF8902-19-68 20:08:00 Test Item Value Reference Range Interpretation Comments RDW (test code = RDW) 12.5 11.5-14.5 [facility] CenterWasvhzaOZNVQURNQK5100-65-95 20:08:00 Test Item Value Reference Range Interpretation Comments Platelet (test code = Platelet) 166 133-450 [facility] CenterKjgynxnVPOOMPJPVS3100-23-51 20:08:00 Test Item Value Reference Range Interpretation Comments MPV (test code = MPV) 8.8 7.4-10.4 [facility] CenterOdoqtjwOMSSBSAJWU1706-83-83 20:08:00 Test Item Value Reference Range Interpretation Comments PT (test code = PT) 15.6 s 12.0-14.7 [facility] CenterMowcxacHGVNKJHSAK4685-27-00 20:08:00 Test Item Value Reference Range Interpretation Comments INR (test code = INR) 1.23 1 0.85-1.17 [place] 235960-11-21 20:08:00 Test Item Value Reference Range Interpretation Comments Segs (test code = Segs) 70.9 45.0-75.0 [facility] CenterEycydzeSBBQERLHPX8564-92-68 20:08:00 Test Item Value Reference Range Interpretation Comments Lymphocytes (test code = Lymphocytes) 18.2 20.0-40.0 [place] 235960-11-21 20:08:00 Test Item Value Reference Range Interpretation Comments Monocytes (test code = Monocytes) 9.4 2.0-12.0 [place] 235960-11-21 20:08:00 Test Item Value Reference Range Interpretation Comments Eosinophils (test code = 1.0 See_Comment [A utomated message] The Eosinophils) system which ge nerated this result tra nsmitted reference range : <=4.0. The reference r daniel was not used to int erpret this result as normal/abnormal . [facility] CenterOpmdsosHWKNXKEPNF7776-92-27 20:08:00 Test Item Value Reference Range Interpretation Comments Basophils (test code = 0.5 See_Comment [Aut omated message] The Basophils) system which ge nerated this result tra nsmitted reference range : <=1.0. The reference r daniel was not used to int erpret this result as normal/abnormal . [facility] CenterQoyvvfwXVFNPMCKRK3788-98-29 20:08:00 Test Item Value Reference Range Interpretation Comments Neutrophils # (test code = Neutrophils 3.4 1.5-8.1 #) [facility] CenterEkhjzssSPGADWTZKE0592-52-44 20:08:00 Test Item Value Reference Range Interpretation Comments Lymphocytes # (test code = Lymphocytes 0.9 1.0-5.5 #) [facility] CenterKqhlwjzMOQSJQAXUW0727-83-64 20:08:00 Test Item Value Reference Range Interpretation Comments Monocytes # (test code 0.4 See_Comment [Aut omated message] The = Monocytes #) system which generated this result tra nsmitted reference range : <=0.8. The reference r daniel was not used to int erpret this result as normal/abnormal . [facility] HospitalBhatadiSTYRLD5200-23-52 20:08:00 Test Item Value Reference Range Interpretation Comments LDL (Calculated) (test code = LDL 70 (Calculated)) [facility] HospitalOxqvwheLELBAN4475-85-48 20:08:00 Test Item Value Reference Range Interpretation Comments Trig (test code = Trig) 50 [place] 659720-11-21 20:08:00 Test Item Value Reference Range Interpretation Comments Chol (test code = Chol) [address] [facility] [address] HospitalPxoijgcNSGONH9374-64-70 20:08:00 Test Item Value Reference Range Interpretation Comments HDL (test code = HDL) [address] [facility] HospitalWznptjyBUFNJD3882-10-64 20:08:00 Test Item Value Reference Range Interpretation Comments CHD Risk (test code = CHD Risk) 2.33 1 3.90-5.[address] [facility] [address] HospitalXsodttqQCOWNM5973-48-44 20:08:00 Test Item Value Reference Range Interpretation Comments VLDL (test code = VLDL) 10 1 [facility]2020-11-21 20:08:00 Test Item Value Reference Range Interpretation Comments Glucose Lvl (test code = Glucose Lvl) 100 70-99 [facility]2020-11-21 20:08:00 Test Item Value Reference Range Interpretation Comments BUN (test code = BUN) 6 7-22 [place] 447990-11-21 20:08:00 Test Item Value Reference Range Interpretation Comments Creatinine Lvl (test code = Creatinine 0.52 0.50-1.40 Lvl) [place] 447990-11-21 20:08:00 Test Item Value Reference Range Interpretation Comments Sodium Lvl (test code = Sodium Lvl) 138 135-145 [place] 447990-11-21 20:08:00 Test Item Value Reference Range Interpretation Comments Potassium Lvl (test code = Potassium 3.5 3.5-5.1 Lvl) [place] 447990-11-21 20:08:00 Test Item Value Reference Range Interpretation Comments Chloride Lvl (test code = Chloride Lvl) 109 95-109 [place] 447990-11-21 20:08:00 Test Item Value Reference Range Interpretation Comments CO2 (test code = CO2) 25 24-32 [place] 447990-11-21 20:08:00 Test Item Value Reference Range Interpretation Comments AGAP (test code = AGAP) 7.5 10.0-20.0 [place] 447990-11-21 20:08:00 Test Item Value Reference Range Interpretation Comments eGFR (test code = eGFR) 127 [place] 447990-11-21 20:08:00 Test Item Value Reference Range Interpretation Comments Total Protein (test code = Total 6.3 6.4-8.4 Protein) [place] 447990-11-21 20:08:00 Test Item Value Reference Range Interpretation Comments Albumin Lvl (test code = Albumin Lvl) 3.2 3.5-5.0 [place] 447990-11-21 20:08:00 Test Item Value Reference Range Interpretation Comments ALT (test code = ALT) 314 See_Comment [Auto mated message] The system which ge nerated this result transmit jeremías reference range : <=65. The reference range was not used to interpr et this result as vernell l/abnormal. [place] 447990-11-21 20:08:00 Test Item Value Reference Range Interpretation Comments AST (test code = AST) 322 See_Comment [Auto mated message] The system which ge nerated this result transmit jeremías reference range : <=37. The reference range was not used to interpr et this result as vernell l/abnormal. [place] 447990-11-21 20:08:00 Test Item Value Reference Range Interpretation Comments Alk Phos (test code = Alk Phos) 144 39-136 [place] 447990-11-21 20:08:00 Test Item Value Reference Range Interpretation Comments Bili Total (test code = Bili Total) 1.4 0.2-1.3 [place] [address]-11-21 20:08:00 Test Item Value Reference Range Interpretation Comments Bili Direct (test code 0.5 See_Comment [Aut omated message] The = Bili Direct) system which generated this result tra nsmitted reference range : <=0.3. The reference r daniel was not used to int erpret this result as vernell l/abnormal. [place] 447990-11-21 20:08:00 Test Item Value Reference Range Interpretation Comments Bili Indirect (test 0.9 See_Comment [Automa jeremías message] The code = Bili Indirect) system which generated this result tra nsmitted reference range : <=1.0. The reference r daniel was not used to int erpret this result as normal/abnormal . [place] 447990-11-21 20:08:00 Test Item Value Reference Range Interpretation Comments Globulin (test code = Globulin) 3.1 2.7-4.2 [place] [address]-11-21 20:08:00 Test Item Value Reference Range Interpretation Comments A/G Ratio (test code = A/G Ratio) 1.0 1 0.7-1.6 [place] [address]-11-21 20:08:00 Test Item Value Reference Range Interpretation Comments Lactic Acid Lvl (test code = Lactic 0.7 0.5-2.2 Acid Lvl) [place] [address]-11-21 20:08:00 Test Item Value Reference Range Interpretation Comments Magnesium Lvl (test code = Magnesium 1.9 1.8-2.4 Lvl) [place] [address]-11-21 20:08:00 Test Item Value Reference Range Interpretation Comments Phosphorus (test code = Phosphorus) 2.9 2.5-4.5 [facility] [id number] 20:08:00 Test Item Value Reference Range Interpretation Comments Lipase Lvl (test code = Lipase Lvl) 1600 73-393 [facility] [id number] 20:08:00 Test Item Value Reference Range Interpretation Comments Amylase Lvl (test code = Amylase Lvl) 336 25-115 [facility]ipnrbgSBAKXCDJEH7866-[facility]-75 20:08:00 Test Item Value Reference Range Interpretation Comments WBC (test code = WBC) 4.8 3.7-10.4 [facility] MichiganLahslcjKGLYFYGQFG0380-40-20 20:08:00 Test Item Value Reference Range Interpretation Comments RBC (test code = RBC) 3.60 4.20-5.40 [facility] MichiganSwxsojlKVHCMMBXOD2048-11-00 20:08:00 Test Item Value Reference Range Interpretation Comments Hgb (test code = Hgb) 11.4 12.0-16.0 [facility] CenterKhcpcgdPUGOWCTTJK3576-54-75 20:08:00 Test Item Value Reference Range Interpretation Comments Hct (test code = Hct) 33.0 36.0-48.0 [facility]YybshzaRRWTYOYSSF5252-99-71 20:08:00 Test Item Value Reference Range Interpretation Comments MCV (test code = MCV) 91.8 80.0-98.0 [facility] MichiganVvjezkuWQSRUHITHM6766-12-29 20:08:00 Test Item Value Reference Range Interpretation Comments MCH (test code = MCH) 31.6 pg 27.0-31.0 [facility] MichiganByefrogGMBNORLYZE4175-71-29 20:08:00 Test Item Value Reference Range Interpretation Comments MCHC (test code = MCHC) 34.4 32.0-36.0 [facility] CenterRxqcizfNDFSCEZNRI7309-48-36 20:08:00 Test Item Value Reference Range Interpretation Comments RDW (test code = RDW) 12.5 11.5-14.5 [facility] MichiganUraeqmaUSRVUVPFBG0730-32-18 20:08:00 Test Item Value Reference Range Interpretation Comments Platelet (test code = Platelet) 166 133-450 [facility] MichiganQbyjcpwLEFQSDXRDF3015-44-80 20:08:00 Test Item Value Reference Range Interpretation Comments MPV (test code = MPV) 8.8 7.4-10.4 [place] 235960-11-21 20:08:00 Test Item Value Reference Range Interpretation Comments PT (test code = PT) 15.6 s 12.0-14.7 [facility] CenterDfohupoDVOCPKKRHT5222-81-71 20:08:00 Test Item Value Reference Range Interpretation Comments INR (test code = INR) 1.23 1 0.85-1.17 [facility] CenterRvaixdoZDMHBKVOQK2803-40-19 20:08:00 Test Item Value Reference Range Interpretation Comments Segs (test code = Segs) 70.9 45.0-75.0 [facility]AcxaozxCKGCWMDYLH0197-94-84 20:08:00 Test Item Value Reference Range Interpretation Comments Lymphocytes (test code = Lymphocytes) 18.2 20.0-40.0 [place] 235960-11-21 20:08:00 Test Item Value Reference Range Interpretation Comments Monocytes (test code = Monocytes) 9.4 2.0-12.0 [facility] CenterJchaztzSNDFTQUHPO3325-74-98 20:08:00 Test Item Value Reference Range Interpretation Comments Eosinophils (test code = 1.0 See_Comment [A utomated message] The Eosinophils) system which ge nerated this result tra nsmitted reference range : <=4.0. The reference r daniel was not used to int erpret this result as normal/abnormal . [facility] CenterMssweplRBBNIXFNOA6024-54-41 20:08:00 Test Item Value Reference Range Interpretation Comments Basophils (test code = 0.5 See_Comment [Aut omated message] The Basophils) system which ge nerated this result tra nsmitted reference range : <=1.0. The reference r daniel was not used to int erpret this result as normal/abnormal . [facility] CenterWauqllvBETPSJXURB3372-83-72 20:08:00 Test Item Value Reference Range Interpretation Comments Neutrophils # (test code = Neutrophils 3.4 1.5-8.1 #) [facility] CenterSycbhtsKKHOYKMFBP3475-89-86 20:08:00 Test Item Value Reference Range Interpretation Comments Lymphocytes # (test code = Lymphocytes 0.9 1.0-5.5 #) [facility] CenterXpjrqukIXUUNBCATB3376-63-17 20:08:00 Test Item Value Reference Range Interpretation Comments Monocytes # (test code 0.4 See_Comment [Aut omated message] The = Monocytes #) system which generated this result tra nsmitted reference range : <=0.8. The reference r daniel was not used to int erpret this result as normal/abnormal . [place] 659720-11-21 20:08:00 Test Item Value Reference Range Interpretation Comments LDL (Calculated) (test code = LDL 70 (Calculated)) [place] [address]-11-21 20:08:00 Test Item Value Reference Range Interpretation Comments Trig (test code = Trig) 50 [place] [address]-11-21 20:08:00 Test Item Value Reference Range Interpretation Comments Chol (test code = Chol) 140 [place] [address]-11-21 20:08:00 Test Item Value Reference Range Interpretation Comments HDL (test code = HDL) 60 [place] [address]-11-21 20:08:00 Test Item Value Reference Range Interpretation Comments CHD Risk (test code = CHD Risk) 2.33 1 3.90-5.80 [place] [address]-11-21 20:08:00 Test Item Value Reference Range Interpretation Comments VLDL (test code = VLDL) 10 1 [place] 447990-11-21 20:08:00 Test Item Value Reference Range Interpretation Comments Glucose Lvl (test code = Glucose Lvl) 100 70-99 [place] 447990-11-21 20:08:00 Test Item Value Reference Range Interpretation Comments BUN (test code = BUN) 6 7-22 [place] 447990-11-21 20:08:00 Test Item Value Reference Range Interpretation Comments Creatinine Lvl (test code = Creatinine 0.52 0.50-1.40 Lvl) [place] 447990-11-21 20:08:00 Test Item Value Reference Range Interpretation Comments Sodium Lvl (test code = Sodium Lvl) 138 135-145 [place] 447990-11-21 20:08:00 Test Item Value Reference Range Interpretation Comments Potassium Lvl (test code = Potassium 3.5 3.5-5.1 Lvl) [facility]2020-11-21 20:08:00 Test Item Value Reference Range Interpretation Comments Chloride Lvl (test code = Chloride Lvl) 109 95-109 [place] 447990-11-21 20:08:00 Test Item Value Reference Range Interpretation Comments CO2 (test code = CO2) 25 24-32 [place] [address]-11-21 20:08:00 Test Item Value Reference Range Interpretation Comments AGAP (test code = AGAP) 7.5 10.0-20.0 [place] [address]-11-21 20:08:00 Test Item Value Reference Range Interpretation Comments eGFR (test code = eGFR) 127 [facility]2020-11-21 20:08:00 Test Item Value Reference Range Interpretation Comments Total Protein (test code = Total 6.3 6.4-8.4 Protein) [place] [address]-11-21 20:08:00 Test Item Value Reference Range Interpretation Comments Albumin Lvl (test code = Albumin Lvl) 3.2 3.5-5.0 [place] [address]-11-21 20:08:00 Test Item Value Reference Range Interpretation Comments ALT (test code = ALT) 314 See_Comment [Auto mated message] The system which ge nerated this result transmit jeremías reference range : <=65. The reference range was not used to interpr et this result as vernell l/abnormal. [facility] [id number] 20:08:00 Test Item Value Reference Range Interpretation Comments AST (test code = AST) 322 See_Comment [Auto mated message] The system which ge nerated this result transmit jeremías reference range : <=37. The reference range was not used to interpr et this result as vernell l/abnormal. [facility] [id number] 20:08:00 Test Item Value Reference Range Interpretation Comments Alk Phos (test code = Alk Phos) 144 39-[address] [facility] [id number] 20:08:00 Test Item Value Reference Range Interpretation Comments Bili Total (test code = Bili Total) 1.4 0.2-1.[address] [facility] [id number] 20:08:00 Test Item Value Reference Range Interpretation Comments Bili Direct (test code 0.5 See_Comment [Aut omated message] The = Bili Direct) system which generated this result tra nsmitted reference range : <=0.3. The reference r daniel was not used to int erpret this result as vernell l/abnormal. [facility] [id number] 20:08:00 Test Item Value Reference Range Interpretation Comments Bili Indirect (test 0.9 See_Comment [Automa jeremías message] The code = Bili Indirect) system which generated this result tra nsmitted reference range : <=1.0. The reference r daniel was not used to int erpret this result as normal/abnormal . [facility] [id number] 20:08:00 Test Item Value Reference Range Interpretation Comments Globulin (test code = Globulin) 3.1 2.7-4.2 [place] 447990-11-21 20:08:00 Test Item Value Reference Range Interpretation Comments A/G Ratio (test code = A/G Ratio) 1.0 1 0.7-1.6 [place] 447990-11-21 20:08:00 Test Item Value Reference Range Interpretation Comments Lactic Acid Lvl (test code = Lactic 0.7 0.5-2.2 Acid Lvl) [facility]2020-11-21 20:08:00 Test Item Value Reference Range Interpretation Comments Magnesium Lvl (test code = Magnesium 1.9 1.8-2.4 Lvl) [facility] [id number] 20:08:00 Test Item Value Reference Range Interpretation Comments Phosphorus (test code = Phosphorus) 2.9 2.5-4.[address] [facility] [id number] 20:08:00 Test Item Value Reference Range Interpretation Comments Lipase Lvl (test code = Lipase Lvl) 1600 73-[address] [facility] [id number] 20:08:00 Test Item Value Reference Range Interpretation Comments Amylase Lvl (test code = Amylase Lvl) 336 25-115 [place] 235960-11-21 20:08:00 Test Item Value Reference Range Interpretation Comments WBC (test code = WBC) 4.8 3.7-10.4 [place] 235960-11-21 20:08:00 Test Item Value Reference Range Interpretation Comments RBC (test code = RBC) 3.60 4.20-5.40 [place] 235960-11-21 20:08:00 Test Item Value Reference Range Interpretation Comments Hgb (test code = Hgb) 11.4 12.0-16.0 [place] 235960-11-21 20:08:00 Test Item Value Reference Range Interpretation Comments Hct (test code = Hct) 33.0 36.0-48.0 [facility] CenterKpaaphpNITXOIAIDH0339-65-05 20:08:00 Test Item Value Reference Range Interpretation Comments MCV (test code = MCV) 91.8 80.0-98.0 [place] 235960-11-21 20:08:00 Test Item Value Reference Range Interpretation Comments MCH (test code = MCH) 31.6 pg 27.0-31.0 [facility] CenterDnjkahwCUFMEIBKJZ2238-11-81 20:08:00 Test Item Value Reference Range Interpretation Comments MCHC (test code = MCHC) 34.4 32.0-36.0 [facility] CenterOcwuzdyWJHTWKGZOA8542-42-23 20:08:00 Test Item Value Reference Range Interpretation Comments RDW (test code = RDW) 12.5 11.5-14.5 [place] 235960-11-21 20:08:00 Test Item Value Reference Range Interpretation Comments Platelet (test code = Platelet) 166 133-450 [facility] CenterTvklpvuRLYMYTJZCC2281-44-59 20:08:00 Test Item Value Reference Range Interpretation Comments MPV (test code = MPV) 8.8 7.4-10.4 [facility] CenterIcyxbzwJJAEROKFLD4390-80-85 20:08:00 Test Item Value Reference Range Interpretation Comments PT (test code = PT) 15.6 s 12.0-14.7 [facility] CenterSzstcknWKAZTLUEIC4309-43-48 20:08:00 Test Item Value Reference Range Interpretation Comments INR (test code = INR) 1.23 1 0.85-1.17 [facility] CenterHhcetypMWMAYJMFGA8713-71-55 20:08:00 Test Item Value Reference Range Interpretation Comments Segs (test code = Segs) 70.9 45.0-75.0 [place] 235960-11-21 20:08:00 Test Item Value Reference Range Interpretation Comments Lymphocytes (test code = Lymphocytes) 18.2 20.0-40.0 [place] 235960-11-21 20:08:00 Test Item Value Reference Range Interpretation Comments Monocytes (test code = Monocytes) 9.4 2.0-12.0 [place] 235960-11-21 20:08:00 Test Item Value Reference Range Interpretation Comments Eosinophils (test code = 1.0 See_Comment [A utomated message] The Eosinophils) system which ge nerated this result tra nsmitted reference range : <=4.0. The reference r daniel was not used to int erpret this result as normal/abnormal . [facility] CenterVjqnzpiLPTOHTSYUF1218-05-28 20:08:00 Test Item Value Reference Range Interpretation Comments Basophils (test code = 0.5 See_Comment [Aut omated message] The Basophils) system which ge nerated this result tra nsmitted reference range : <=1.0. The reference r daniel was not used to int erpret this result as normal/abnormal . [facility] CenterTkflgoaETKWSYXYJX9535-30-72 20:08:00 Test Item Value Reference Range Interpretation Comments Neutrophils # (test code = Neutrophils 3.4 1.5-8.1 #) [facility] CenterAymyrikMJFAFBDSEI2572-37-88 20:08:00 Test Item Value Reference Range Interpretation Comments Lymphocytes # (test code = Lymphocytes 0.9 1.0-5.5 #) [facility] CenterVzsyhdvJCLVUZYHBE1851-07-61 20:08:00 Test Item Value Reference Range Interpretation Comments Monocytes # (test code 0.4 See_Comment [Aut omated message] The = Monocytes #) system which generated this result tra nsmitted reference range : <=0.8. The reference r daniel was not used to int erpret this result as normal/abnormal . [facility] HospitalWmedlplACXVEH7624-55-15 20:08:00 Test Item Value Reference Range Interpretation Comments LDL (Calculated) (test code = LDL 70 (Calculated)) [facility] HospitalCanyfdrDRMAEG7554-13-68 20:08:00 Test Item Value Reference Range Interpretation Comments Trig (test code = Trig) [address] [facility] [address] [facility] HospitalVszfxpgKWKVDM9942-36-92 20:08:00 Test Item Value Reference Range Interpretation Comments Chol (test code = Chol) 140 [facility] HospitalMjtlkftBLSMIW1232-97-96 20:08:00 Test Item Value Reference Range Interpretation Comments HDL (test code = HDL) 60 [facility] HospitalWfhidbeHSNHOE6410-08-03 20:08:00 Test Item Value Reference Range Interpretation Comments CHD Risk (test code = CHD Risk) 2.33 1 3.90-5.80 [facility] HospitalAhromzaBLOLXD9915-53-66 20:08:00 Test Item Value Reference Range Interpretation Comments VLDL (test code = VLDL) 10 1 [facility]2020-11-21 20:08:00 Test Item Value Reference Range Interpretation Comments Glucose Lvl (test code = Glucose Lvl) 100 70-99 [facility]2020-11-21 20:08:00 Test Item Value Reference Range Interpretation Comments BUN (test code = BUN) 6 7-22 [place] 447990-11-21 20:08:00 Test Item Value Reference Range Interpretation Comments Creatinine Lvl (test code = Creatinine 0.52 0.50-1.40 Lvl) [facility]2020-11-21 20:08:00 Test Item Value Reference Range Interpretation Comments Sodium Lvl (test code = Sodium Lvl) 138 135-145 [facility]2020-11-21 20:08:00 Test Item Value Reference Range Interpretation Comments Potassium Lvl (test code = Potassium 3.5 3.5-5.1 Lvl) [facility] [id number] 20:08:00 Test Item Value Reference Range Interpretation Comments Chloride Lvl (test code = Chloride Lvl) 109 95-[address] [facility] [id number] 20:08:00 Test Item Value Reference Range Interpretation Comments CO2 (test code = CO2) 25 24-[address] [facility] [id number] 20:08:00 Test Item Value Reference Range Interpretation Comments AGAP (test code = AGAP) 7.5 10.0-20.[address] [facility] [id number] 20:08:00 Test Item Value Reference Range Interpretation Comments eGFR (test code = eGFR) 127 [facility] [id number] 20:08:00 Test Item Value Reference Range Interpretation Comments Total Protein (test code = Total 6.3 6.4-8.4 Protein) [facility] [id number] 20:08:00 Test Item Value Reference Range Interpretation Comments Albumin Lvl (test code = Albumin Lvl) 3.2 3.5-5.[address] [facility] [id number] 20:08:00 Test Item Value Reference Range Interpretation Comments ALT (test code = ALT) 314 See_Comment [Auto mated message] The system which ge nerated this result transmit jeremías reference range : <=65. The reference range was not used to interpr et this result as vernell l/abnormal. [facility] [id number] 20:08:00 Test Item Value Reference Range Interpretation Comments AST (test code = AST) 322 See_Comment [Auto mated message] The system which ge nerated this result transmit jeremías reference range : <=37. The reference range was not used to interpr et this result as vernell l/abnormal. [facility] [id number] 20:08:00 Test Item Value Reference Range Interpretation Comments Alk Phos (test code = Alk Phos) 144 39-136 [facility] [id number] 20:08:00 Test Item Value Reference Range Interpretation Comments Bili Total (test code = Bili Total) 1.4 0.2-1.3 [facility] [id number] 20:08:00 Test Item Value Reference Range Interpretation Comments Bili Direct (test code 0.5 See_Comment [Aut omated message] The = Bili Direct) system which generated this result tra nsmitted reference range : <=0.3. The reference r daniel was not used to int erpret this result as vernell l/abnormal. [facility] [id number] 20:08:00 Test Item Value Reference Range Interpretation Comments Bili Indirect (test 0.9 See_Comment [Automa jeremías message] The code = Bili Indirect) system which generated this result tra nsmitted reference range : <=1.0. The reference r daniel was not used to int erpret this result as normal/abnormal . [facility] [id number] 20:08:00 Test Item Value Reference Range Interpretation Comments Globulin (test code = Globulin) 3.1 2.7-4.2 [facility] [id number] 20:08:00 Test Item Value Reference Range Interpretation Comments A/G Ratio (test code = A/G Ratio) 1.0 1 0.7-1.[address] [facility] [id number] 20:08:00 Test Item Value Reference Range Interpretation Comments Lactic Acid Lvl (test code = Lactic 0.7 0.5-2.2 Acid Lvl) [facility] [id number] 20:08:00 Test Item Value Reference Range Interpretation Comments Magnesium Lvl (test code = Magnesium 1.9 1.8-2.4 Lvl) [facility]2020-11-21 20:08:00 Test Item Value Reference Range Interpretation Comments Phosphorus (test code = Phosphorus) 2.9 2.5-4.5 [facility] [id number] 20:08:00 Test Item Value Reference Range Interpretation Comments Lipase Lvl (test code = Lipase Lvl) 1600 73-393 [facility] [id number] 20:08:00 Test Item Value Reference Range Interpretation Comments Amylase Lvl (test code = Amylase Lvl) 336 25-115 [facility] CenterOsjjvvnRUNMIRASMP2250-75-88 20:08:00 Test Item Value Reference Range Interpretation Comments WBC (test code = WBC) 4.8 3.7-10.4 [facility] CenterOitwccvFVWWXSNLJT8321-06-47 20:08:00 Test Item Value Reference Range Interpretation Comments RBC (test code = RBC) 3.60 4.20-5.40 [facility] CenterSdgvfkhOSCFDDMEDB9273-78-96 20:08:00 Test Item Value Reference Range Interpretation Comments Hgb (test code = Hgb) 11.4 12.0-16.0 [facility] CenterDtbxxyhIQHOMWTMZH0169-92-42 20:08:00 Test Item Value Reference Range Interpretation Comments Hct (test code = Hct) 33.0 36.0-48.0 [facility] CenterFydzefcAKPTQDMOFA4644-23-50 20:08:00 Test Item Value Reference Range Interpretation Comments MCV (test code = MCV) 91.8 80.0-98.0 [facility] CenterWzqojppBYWHGHEZYZ9348-26-76 20:08:00 Test Item Value Reference Range Interpretation Comments MCH (test code = MCH) 31.6 pg 27.0-31.0 [facility] CenterZhrciawNMZOZVORYQ2546-24-19 20:08:00 Test Item Value Reference Range Interpretation Comments MCHC (test code = MCHC) 34.4 32.0-36.0 [facility] CenterSqssoxoSIJNTYVVNW4645-43-31 20:08:00 Test Item Value Reference Range Interpretation Comments RDW (test code = RDW) 12.5 11.5-14.5 [facility] CenterYpuuiuxPLSHCVZIFV9364-99-81 20:08:00 Test Item Value Reference Range Interpretation Comments Platelet (test code = Platelet) 166 133-450 [facility] CenterJpvbkelAOXVKVKWKA8857-49-87 20:08:00 Test Item Value Reference Range Interpretation Comments MPV (test code = MPV) 8.8 7.4-10.4 [facility] CenterZcbbcxwQNWQLLPMWF0036-07-02 20:08:00 Test Item Value Reference Range Interpretation Comments PT (test code = PT) 15.6 s 12.0-14.7 [place] 235960-11-21 20:08:00 Test Item Value Reference Range Interpretation Comments INR (test code = INR) 1.23 1 0.85-1.17 [facility] CenterVusvrqpLIWJEIPYRP3402-45-81 20:08:00 Test Item Value Reference Range Interpretation Comments Segs (test code = Segs) 70.9 45.0-75.0 [facility] CenterLkonnzyGSXDRQCQKL3623-66-72 20:08:00 Test Item Value Reference Range Interpretation Comments Lymphocytes (test code = Lymphocytes) 18.2 20.0-40.0 [place] 235960-11-21 20:08:00 Test Item Value Reference Range Interpretation Comments Monocytes (test code = Monocytes) 9.4 2.0-12.0 [place] 235960-11-21 20:08:00 Test Item Value Reference Range Interpretation Comments Eosinophils (test code = 1.0 See_Comment [A utomated message] The Eosinophils) system which ge nerated this result tra nsmitted reference range : <=4.0. The reference r daniel was not used to int erpret this result as normal/abnormal . [facility] CenterVsogevvCYZFJARTSH1333-55-86 20:08:00 Test Item Value Reference Range Interpretation Comments Basophils (test code = 0.5 See_Comment [Aut omated message] The Basophils) system which ge nerated this result tra nsmitted reference range : <=1.0. The reference r daniel was not used to int erpret this result as normal/abnormal . [facility] CenterAbcjwlwTEEVDUBOZO5874-63-54 20:08:00 Test Item Value Reference Range Interpretation Comments Neutrophils # (test code = Neutrophils 3.4 1.5-8.1 #) [facility] CenterCaljmsuQDZTWUOUJM8540-11-26 20:08:00 Test Item Value Reference Range Interpretation Comments Lymphocytes # (test code = Lymphocytes 0.9 1.0-5.5 #) [facility] CenterLdvihwxSAPNJFPVXO2588-89-41 20:08:00 Test Item Value Reference Range Interpretation Comments Monocytes # (test code 0.4 See_Comment [Aut omated message] The = Monocytes #) system which generated this result tra nsmitted reference range : <=0.8. The reference r daniel was not used to int erpret this result as normal/abnormal . [facility]RsgyrlyUVXBWV4195-46-72 20:08:00 Test Item Value Reference Range Interpretation Comments LDL (Calculated) (test code = LDL 70 (Calculated)) [place] 659720-11-21 20:08:00 Test Item Value Reference Range Interpretation Comments Trig (test code = Trig) 50 [place] [address]-11-21 20:08:00 Test Item Value Reference Range Interpretation Comments Chol (test code = Chol) 140 [place] 659720-11-21 20:08:00 Test Item Value Reference Range Interpretation Comments HDL (test code = HDL) 60 [place] 659720-11-21 20:08:00 Test Item Value Reference Range Interpretation Comments CHD Risk (test code = CHD Risk) 2.33 1 3.90-5.[address] HospitalXcedtumTCFCAP4709-42-24 20:08:00 Test Item Value Reference Range Interpretation Comments VLDL (test code = VLDL) 10 1 [facility] [id number] 20:08:00 Test Item Value Reference Range Interpretation Comments Glucose Lvl (test code = Glucose Lvl) 100 70-99 [facility] [id number] 20:08:00 Test Item Value Reference Range Interpretation Comments BUN (test code = BUN) 6 7-22 [facility] [id number] 20:08:00 Test Item Value Reference Range Interpretation Comments Creatinine Lvl (test code = Creatinine 0.52 0.50-1.40 Lvl) [facility] [id number] 20:08:00 Test Item Value Reference Range Interpretation Comments Sodium Lvl (test code = Sodium Lvl) 138 135-145 [facility] [id number] 20:08:00 Test Item Value Reference Range Interpretation Comments Potassium Lvl (test code = Potassium 3.5 3.5-5.1 Lvl) [facility] [id number] 20:08:00 Test Item Value Reference Range Interpretation Comments Chloride Lvl (test code = Chloride Lvl) 109 95-109 [facility] [place] 009270-11-21 20:08:00 Test Item Value Reference Range Interpretation Comments CO2 (test code = CO2) 25 24-32 [place] [address]-11-21 20:08:00 Test Item Value Reference Range Interpretation Comments AGAP (test code = AGAP) 7.5 10.0-20.0 [place] [address]-11-21 20:08:00 Test Item Value Reference Range Interpretation Comments eGFR (test code = eGFR) 127 [place] 447990-11-21 20:08:00 Test Item Value Reference Range Interpretation Comments Total Protein (test code = Total 6.3 6.4-8.4 Protein) [place] [address]-11-21 20:08:00 Test Item Value Reference Range Interpretation Comments Albumin Lvl (test code = Albumin Lvl) 3.2 3.5-5.0 [place] 447990-11-21 20:08:00 Test Item Value Reference Range Interpretation Comments ALT (test code = ALT) 314 See_Comment [Auto mated message] The system which ge nerated this result transmit jeremías reference range : <=65. The reference range was not used to interpr et this result as vernell l/abnormal. [place] [address]-11-21 20:08:00 Test Item Value Reference Range Interpretation Comments AST (test code = AST) 322 See_Comment [Auto mated message] The system which ge nerated this result transmit jeremías reference range : <=37. The reference range was not used to interpr et this result as vernell l/abnormal. [place] 447990-11-21 20:08:00 Test Item Value Reference Range Interpretation Comments Alk Phos (test code = Alk Phos) 144 39-136 [place] [address]-11-21 20:08:00 Test Item Value Reference Range Interpretation Comments Bili Total (test code = Bili Total) 1.4 0.2-1.3 [place] [address]-11-21 20:08:00 Test Item Value Reference Range Interpretation Comments Bili Direct (test code 0.5 See_Comment [Aut omated message] The = Bili Direct) system which generated this result tra nsmitted reference range : <=0.3. The reference r daniel was not used to int erpret this result as vernell l/abnormal. [place] 447990-11-21 20:08:00 Test Item Value Reference Range Interpretation Comments Bili Indirect (test 0.9 See_Comment [Automa jeremías message] The code = Bili Indirect) system which generated this result tra nsmitted reference range : <=1.0. The reference r daniel was not used to int erpret this result as normal/abnormal . [place] 447990-11-21 20:08:00 Test Item Value Reference Range Interpretation Comments Globulin (test code = Globulin) 3.1 2.7-4.2 [place] 447990-11-21 20:08:00 Test Item Value Reference Range Interpretation Comments A/G Ratio (test code = A/G Ratio) 1.0 1 0.7-1.6 [place] 447990-11-21 20:08:00 Test Item Value Reference Range Interpretation Comments Lactic Acid Lvl (test code = Lactic 0.7 0.5-2.2 Acid Lvl) [place] 447990-11-21 20:08:00 Test Item Value Reference Range Interpretation Comments Magnesium Lvl (test code = Magnesium 1.9 1.8-2.4 Lvl) [place] 447990-11-21 20:08:00 Test Item Value Reference Range Interpretation Comments Phosphorus (test code = Phosphorus) 2.9 2.5-4.5 [place] 447990-11-21 20:08:00 Test Item Value Reference Range Interpretation Comments Lipase Lvl (test code = Lipase Lvl) 1600 73-[address] [facility] [id number] 20:08:00 Test Item Value Reference Range Interpretation Comments Amylase Lvl (test code = Amylase Lvl) 336 25-115 [place] 235960-11-21 20:08:00 Test Item Value Reference Range Interpretation Comments WBC (test code = WBC) 4.8 3.7-10.4 [place] 235960-11-21 20:08:00 Test Item Value Reference Range Interpretation Comments RBC (test code = RBC) 3.60 4.20-5.40 [place] 235960-11-21 20:08:00 Test Item Value Reference Range Interpretation Comments Hgb (test code = Hgb) 11.4 12.0-16.0 [facility]MqzoznnMEJVQABSGT4528-55-86 20:08:00 Test Item Value Reference Range Interpretation Comments Hct (test code = Hct) 33.0 36.0-48.0 [facility] CenterWjrcgbnPNMQBVIFUA2208-60-72 20:08:00 Test Item Value Reference Range Interpretation Comments MCV (test code = MCV) 91.8 80.0-98.0 [place] 235960-11-21 20:08:00 Test Item Value Reference Range Interpretation Comments MCH (test code = MCH) 31.6 pg 27.0-31.0 [facility] CenterNoswsmwWTQIZLJXPK2368-18-59 20:08:00 Test Item Value Reference Range Interpretation Comments MCHC (test code = MCHC) 34.4 32.0-36.0 [facility] CenterDsecjamEUEQRNCINF8378-04-31 20:08:00 Test Item Value Reference Range Interpretation Comments RDW (test code = RDW) 12.5 11.5-14.5 [facility] CenterPizrkhuOXSWTAYEQM9558-09-17 20:08:00 Test Item Value Reference Range Interpretation Comments Platelet (test code = Platelet) 166 133-450 [facility] CenterGmthxzbWGFZIJZATY4198-66-70 20:08:00 Test Item Value Reference Range Interpretation Comments MPV (test code = MPV) 8.8 7.4-10.4 [facility] CenterParpohbVYNXJJARYY7112-74-55 20:08:00 Test Item Value Reference Range Interpretation Comments PT (test code = PT) 15.6 s 12.0-14.7 [facility] CenterMslxpwxIQOBOYXBZF8532-92-03 20:08:00 Test Item Value Reference Range Interpretation Comments INR (test code = INR) 1.23 1 0.85-1.17 [place] 235960-11-21 20:08:00 Test Item Value Reference Range Interpretation Comments Segs (test code = Segs) 70.9 45.0-75.0 [place] 235960-11-21 20:08:00 Test Item Value Reference Range Interpretation Comments Lymphocytes (test code = Lymphocytes) 18.2 20.0-40.0 [place] 235960-11-21 20:08:00 Test Item Value Reference Range Interpretation Comments Monocytes (test code = Monocytes) 9.4 2.0-12.0 [facility] CenterCqzygsgCZHITIFQJA3345-32-31 20:08:00 Test Item Value Reference Range Interpretation Comments Eosinophils (test code = 1.0 See_Comment [A utomated message] The Eosinophils) system which ge nerated this result tra nsmitted reference range : <=4.0. The reference r daniel was not used to int erpret this result as normal/abnormal . [facility] CenterDoapxpmKWXTMAWNQL9670-91-25 20:08:00 Test Item Value Reference Range Interpretation Comments Basophils (test code = 0.5 See_Comment [Aut omated message] The Basophils) system which ge nerated this result tra nsmitted reference range : <=1.0. The reference r daniel was not used to int erpret this result as normal/abnormal . [facility] CenterZqmjqaoSDQZJVPRKH2698-83-16 20:08:00 Test Item Value Reference Range Interpretation Comments Neutrophils # (test code = Neutrophils 3.4 1.5-8.1 #) [facility] CenterQfdytfoHUVMVFKDLJ6999-20-60 20:08:00 Test Item Value Reference Range Interpretation Comments Lymphocytes # (test code = Lymphocytes 0.9 1.0-5.5 #) [facility] CenterZbkqdrhNVBPVNGHKY7397-20-53 20:08:00 Test Item Value Reference Range Interpretation Comments Monocytes # (test code 0.4 See_Comment [Aut omated message] The = Monocytes #) system which generated this result tra nsmitted reference range : <=0.8. The reference r daniel was not used to int erpret this result as normal/abnormal . [facility]WvoxazzUVBILT0564-91-54 20:08:00 Test Item Value Reference Range Interpretation Comments LDL (Calculated) (test code = LDL 70 (Calculated)) [place] 659720-11-21 20:08:00 Test Item Value Reference Range Interpretation Comments Trig (test code = Trig) 50 [facility] CenterLkizgadRRMEBR5222-09-19 20:08:00 Test Item Value Reference Range Interpretation Comments Chol (test code = Chol) 140 [facility] CenterThdlzsiJPYPDB3782-28-14 20:08:00 Test Item Value Reference Range Interpretation Comments HDL (test code = HDL) 60 [facility] CenterPjtyytaQZZNSJ4743-79-84 20:08:00 Test Item Value Reference Range Interpretation Comments CHD Risk (test code = CHD Risk) 2.33 1 3.90-5.80 [facility] CenterZuptlprYLUFMB3237-07-33 20:08:00 Test Item Value Reference Range Interpretation Comments VLDL (test code = VLDL) 10 1 [place] 447990-11-21 20:08:00 Test Item Value Reference Range Interpretation Comments Glucose Lvl (test code = Glucose Lvl) 100 70-99 [place] 447990-11-21 20:08:00 Test Item Value Reference Range Interpretation Comments BUN (test code = BUN) 6 7-22 [place] 447990-11-21 20:08:00 Test Item Value Reference Range Interpretation Comments Creatinine Lvl (test code = Creatinine 0.52 0.50-1.40 Lvl) [facility]2020-11-21 20:08:00 Test Item Value Reference Range Interpretation Comments Sodium Lvl (test code = Sodium Lvl) 138 135-145 [facility]2020-11-21 20:08:00 Test Item Value Reference Range Interpretation Comments Potassium Lvl (test code = Potassium 3.5 3.5-5.1 Lvl) [place] 447990-11-21 20:08:00 Test Item Value Reference Range Interpretation Comments Chloride Lvl (test code = Chloride Lvl) 109 95-109 [place] 447990-11-21 20:08:00 Test Item Value Reference Range Interpretation Comments CO2 (test code = CO2) 25 24-32 [place] 447990-11-21 20:08:00 Test Item Value Reference Range Interpretation Comments AGAP (test code = AGAP) 7.5 10.0-20.0 [place] 447990-11-21 20:08:00 Test Item Value Reference Range Interpretation Comments eGFR (test code = eGFR) 127 [place] 447990-11-21 20:08:00 Test Item Value Reference Range Interpretation Comments Total Protein (test code = Total 6.3 6.4-8.4 Protein) [place] 447990-11-21 20:08:00 Test Item Value Reference Range Interpretation Comments Albumin Lvl (test code = Albumin Lvl) 3.2 3.5-5.0 [place] 447990-11-21 20:08:00 Test Item Value Reference Range Interpretation Comments ALT (test code = ALT) 314 See_Comment [Auto mated message] The system which ge nerated this result transmit jeremías reference range : <=65. The reference range was not used to interpr et this result as vernell l/abnormal. [facility] [employer] [id number] 20:08:00 Test Item Value Reference Range Interpretation Comments AST (test code = AST) 322 See_Comment [Auto mated message] The system which ge nerated this result transmit jeremías reference range : <=37. The reference range was not used to interpr et this result as vernell l/abnormal. [facility] [employer] [id number] 20:08:00 Test Item Value Reference Range Interpretation Comments Alk Phos (test code = Alk Phos) 144 39-136 [facility] [id number] 20:08:00 Test Item Value Reference Range Interpretation Comments Bili Total (test code = Bili Total) 1.4 0.2-1.3 [facility] [id number] 20:08:00 Test Item Value Reference Range Interpretation Comments Bili Direct (test code 0.5 See_Comment [Aut omated message] The = Bili Direct) system which generated this result tra nsmitted reference range : <=0.3. The reference r daniel was not used to int erpret this result as vernell l/abnormal. [facility] [employer] [id number] 20:08:00 Test Item Value Reference Range Interpretation Comments Bili Indirect (test 0.9 See_Comment [Automa jeremías message] The code = Bili Indirect) system which generated this result tra nsmitted reference range : <=1.0. The reference r daniel was not used to int erpret this result as normal/abnormal . [facility] [employer] [id number] 20:08:00 Test Item Value Reference Range Interpretation Comments Globulin (test code = Globulin) 3.1 2.7-4.2 [facility] [id number] 20:08:00 Test Item Value Reference Range Interpretation Comments A/G Ratio (test code = A/G Ratio) 1.0 1 0.7-1.6 [facility] [id number] 20:08:00 Test Item Value Reference Range Interpretation Comments Lactic Acid Lvl (test code = Lactic 0.7 0.5-2.2 Acid Lvl) [facility] [id number] 20:08:00 Test Item Value Reference Range Interpretation Comments Magnesium Lvl (test code = Magnesium 1.9 1.8-2.4 Lvl) [facility]2020-11-21 20:08:00 Test Item Value Reference Range Interpretation Comments Phosphorus (test code = Phosphorus) 2.9 2.5-4.5 [facility]2020-11-21 20:08:00 Test Item Value Reference Range Interpretation Comments Lipase Lvl (test code = Lipase Lvl) 1600 73-393 [facility]2020-11-21 20:08:00 Test Item Value Reference Range Interpretation Comments Amylase Lvl (test code = Amylase Lvl) 336 25-115 [facility] CenterQobkemxTUMMKJCLEV2959-87-61 20:08:00 Test Item Value Reference Range Interpretation Comments WBC (test code = WBC) 4.8 3.7-10.4 [facility] CenterCxsilkcCEKACKXRAG3026-47-78 20:08:00 Test Item Value Reference Range Interpretation Comments RBC (test code = RBC) 3.60 4.20-5.40 [facility] CenterLlvzzeiYDYFUNDVZA5537-18-57 20:08:00 Test Item Value Reference Range Interpretation Comments Hgb (test code = Hgb) 11.4 12.0-16.0 [place] 235960-11-21 20:08:00 Test Item Value Reference Range Interpretation Comments Hct (test code = Hct) 33.0 36.0-48.0 [facility] CenterBouphusWLGEXJLHTY1721-46-87 20:08:00 Test Item Value Reference Range Interpretation Comments MCV (test code = MCV) 91.8 80.0-98.0 [facility] CenterJxatzwkMDDJKCNQNB5198-20-14 20:08:00 Test Item Value Reference Range Interpretation Comments MCH (test code = MCH) 31.6 pg 27.0-31.0 [facility] CenterJbeivtmPEVTEHFNRG1693-08-86 20:08:00 Test Item Value Reference Range Interpretation Comments MCHC (test code = MCHC) 34.4 32.0-36.0 [facility] CenterYbygeedXENXKACAUU3924-03-58 20:08:00 Test Item Value Reference Range Interpretation Comments RDW (test code = RDW) 12.5 11.5-14.5 [place] 235960-11-21 20:08:00 Test Item Value Reference Range Interpretation Comments Platelet (test code = Platelet) 166 133-450 [facility] CenterAslyhlaICYGEGWBIO0157-47-08 20:08:00 Test Item Value Reference Range Interpretation Comments MPV (test code = MPV) 8.8 7.4-10.4 [facility] CenterEvrkrszCYCSUANFNW9692-14-78 20:08:00 Test Item Value Reference Range Interpretation Comments PT (test code = PT) 15.6 s 12.0-14.7 [facility] CenterFdauonaNODJOTDWOM6162-83-83 20:08:00 Test Item Value Reference Range Interpretation Comments INR (test code = INR) 1.23 1 0.85-1.17 [facility] CenterUxwvypcYDZMDFMYKX0848-24-74 20:08:00 Test Item Value Reference Range Interpretation Comments Segs (test code = Segs) 70.9 45.0-75.0 [facility] CenterKhvynmyFQIAZIRXPO7071-09-18 20:08:00 Test Item Value Reference Range Interpretation Comments Lymphocytes (test code = Lymphocytes) 18.2 20.0-40.0 [facility] CenterQtnvbowGRPMKSQDGL2821-07-05 20:08:00 Test Item Value Reference Range Interpretation Comments Monocytes (test code = Monocytes) 9.4 2.0-12.0 [facility] CenterHvgbnzyWXECXJTNUZ7840-58-58 20:08:00 Test Item Value Reference Range Interpretation Comments Eosinophils (test code = 1.0 See_Comment [A utomated message] The Eosinophils) system which ge nerated this result tra nsmitted reference range : <=4.0. The reference r daniel was not used to int erpret this result as normal/abnormal . [facility] CenterIqwqrlbYQMSSIXVNA5299-19-75 20:08:00 Test Item Value Reference Range Interpretation Comments Basophils (test code = 0.5 See_Comment [Aut omated message] The Basophils) system which ge nerated this result tra nsmitted reference range : <=1.0. The reference r daniel was not used to int erpret this result as normal/abnormal . [facility] CenterUunumjnSPAITMZRDP6670-49-75 20:08:00 Test Item Value Reference Range Interpretation Comments Neutrophils # (test code = Neutrophils 3.4 1.5-8.1 #) [facility] CenterAytmrtoKMIMOMNOHD3815-18-60 20:08:00 Test Item Value Reference Range Interpretation Comments Lymphocytes # (test code = Lymphocytes 0.9 1.0-5.5 #) [place] 235960-11-21 20:08:00 Test Item Value Reference Range Interpretation Comments Monocytes # (test code 0.4 See_Comment [Aut omated message] The = Monocytes #) system which generated this result tra nsmitted reference range : <=0.8. The reference r daniel was not used to int erpret this result as normal/abnormal . [facility] HospitalAlualajTQTTGR9391-45-23 20:08:00 Test Item Value Reference Range Interpretation Comments LDL (Calculated) (test code = LDL 70 (Calculated)) [place] 659720-11-21 20:08:00 Test Item Value Reference Range Interpretation Comments Trig (test code = Trig) 50 [place] 659720-11-21 20:08:00 Test Item Value Reference Range Interpretation Comments Chol (test code = Chol) 140 [facility] CenterLkieheoEMIZAV8151-54-62 20:08:00 Test Item Value Reference Range Interpretation Comments HDL (test code = HDL) 60 [place] 659720-11-21 20:08:00 Test Item Value Reference Range Interpretation Comments CHD Risk (test code = CHD Risk) 2.33 1 3.90-5.80 [place] 659720-11-21 20:08:00 Test Item Value Reference Range Interpretation Comments VLDL (test code = VLDL) 10 1 [place] 447990-11-21 20:08:00 Test Item Value Reference Range Interpretation Comments Glucose Lvl (test code = Glucose Lvl) 100 70-99 [facility]2020-11-21 20:08:00 Test Item Value Reference Range Interpretation Comments BUN (test code = BUN) 6 7-22 [place] 447990-11-21 20:08:00 Test Item Value Reference Range Interpretation Comments Creatinine Lvl (test code = Creatinine 0.52 0.50-1.40 Lvl) [place] 447990-11-21 20:08:00 Test Item Value Reference Range Interpretation Comments Sodium Lvl (test code = Sodium Lvl) 138 135-145 [facility]2020-11-21 20:08:00 Test Item Value Reference Range Interpretation Comments Potassium Lvl (test code = Potassium 3.5 3.5-5.1 Lvl) [facility]2020-11-21 20:08:00 Test Item Value Reference Range Interpretation Comments Chloride Lvl (test code = Chloride Lvl) 109 95-109 [facility]2020-11-21 20:08:00 Test Item Value Reference Range Interpretation Comments CO2 (test code = CO2) 25 24-32 [place] 447990-11-21 20:08:00 Test Item Value Reference Range Interpretation Comments AGAP (test code = AGAP) 7.5 10.0-20.0 [place] 447990-11-21 20:08:00 Test Item Value Reference Range Interpretation Comments eGFR (test code = eGFR) 127 [place] 447990-11-21 20:08:00 Test Item Value Reference Range Interpretation Comments Total Protein (test code = Total 6.3 6.4-8.4 Protein) [place] 447990-11-21 20:08:00 Test Item Value Reference Range Interpretation Comments Albumin Lvl (test code = Albumin Lvl) 3.2 3.5-5.[address] [facility] [id number] 20:08:00 Test Item Value Reference Range Interpretation Comments ALT (test code = ALT) 314 See_Comment [Auto mated message] The system which ge nerated this result transmit jeremías reference range : <=65. The reference range was not used to interpr et this result as vernell l/abnormal. [facility] [id number] 20:08:00 Test Item Value Reference Range Interpretation Comments AST (test code = AST) 322 See_Comment [Auto mated message] The system which ge nerated this result transmit jeremías reference range : <=37. The reference range was not used to interpr et this result as vernell l/abnormal. [facility] [id number] 20:08:00 Test Item Value Reference Range Interpretation Comments Alk Phos (test code = Alk Phos) 144 39-[address] [facility] [id number] 20:08:00 Test Item Value Reference Range Interpretation Comments Bili Total (test code = Bili Total) 1.4 0.2-1.[address] [facility] [id number] 20:08:00 Test Item Value Reference Range Interpretation Comments Bili Direct (test code 0.5 See_Comment [Aut omated message] The = Bili Direct) system which generated this result tra nsmitted reference range : <=0.3. The reference r daniel was not used to int erpret this result as vernell l/abnormal. [place] 447990-11-21 20:08:00 Test Item Value Reference Range Interpretation Comments Bili Indirect (test 0.9 See_Comment [Automa jeremías message] The code = Bili Indirect) system which generated this result tra nsmitted reference range : <=1.0. The reference r daniel was not used to int erpret this result as normal/abnormal . [place] 447990-11-21 20:08:00 Test Item Value Reference Range Interpretation Comments Globulin (test code = Globulin) 3.1 2.7-4.2 [place] 447990-11-21 20:08:00 Test Item Value Reference Range Interpretation Comments A/G Ratio (test code = A/G Ratio) 1.0 1 0.7-1.6 [place] 447990-11-21 20:08:00 Test Item Value Reference Range Interpretation Comments Lactic Acid Lvl (test code = Lactic 0.7 0.5-2.2 Acid Lvl) [place] 447990-11-21 20:08:00 Test Item Value Reference Range Interpretation Comments Magnesium Lvl (test code = Magnesium 1.9 1.8-2.4 Lvl) [place] 447990-11-21 20:08:00 Test Item Value Reference Range Interpretation Comments Phosphorus (test code = Phosphorus) 2.9 2.5-4.5 [place] 447990-11-21 20:08:00 Test Item Value Reference Range Interpretation Comments Lipase Lvl (test code = Lipase Lvl) 1600 73-393 [place] 447990-11-21 20:08:00 Test Item Value Reference Range Interpretation Comments Amylase Lvl (test code = Amylase Lvl) 336 25-115 [place] 235960-11-21 20:08:00 Test Item Value Reference Range Interpretation Comments WBC (test code = WBC) 4.8 3.7-10.4 [place] [address]-11-21 20:08:00 Test Item Value Reference Range Interpretation Comments RBC (test code = RBC) 3.60 4.20-5.40 [place] 235960-11-21 20:08:00 Test Item Value Reference Range Interpretation Comments Hgb (test code = Hgb) 11.4 12.0-16.0 [facility] CenterFqnguiiLXEYAMGYIE2999-74-84 20:08:00 Test Item Value Reference Range Interpretation Comments Hct (test code = Hct) 33.0 36.0-48.0 [facility] CenterAymofepYAMNRJEKVL2521-81-92 20:08:00 Test Item Value Reference Range Interpretation Comments MCV (test code = MCV) 91.8 80.0-98.0 [facility] CenterRjyuocrGAQNGWGVOU5791-36-99 20:08:00 Test Item Value Reference Range Interpretation Comments MCH (test code = MCH) 31.6 pg 27.0-31.0 [facility] CenterYjzbpjbZHYKMYCXFI7017-17-42 20:08:00 Test Item Value Reference Range Interpretation Comments MCHC (test code = MCHC) 34.4 32.0-36.0 [facility] CenterXqhrwcbFSPOFKXXWV0268-12-68 20:08:00 Test Item Value Reference Range Interpretation Comments RDW (test code = RDW) 12.5 11.5-14.5 [facility] CenterUkjbwobCTADGNSSFP9972-65-28 20:08:00 Test Item Value Reference Range Interpretation Comments Platelet (test code = Platelet) 166 133-450 [facility] CenterLloyujwQXJYUDDFFO5809-22-44 20:08:00 Test Item Value Reference Range Interpretation Comments MPV (test code = MPV) 8.8 7.4-10.4 [facility] CenterBqfltaeGFLCFINQBI0001-13-17 20:08:00 Test Item Value Reference Range Interpretation Comments PT (test code = PT) 15.6 s 12.0-14.7 [facility] CenterNvkfnymLHDYCCUCRV3915-90-60 20:08:00 Test Item Value Reference Range Interpretation Comments INR (test code = INR) 1.23 1 0.85-1.17 [facility] CenterLeumrqnPNZIIDHVGH1676-70-03 20:08:00 Test Item Value Reference Range Interpretation Comments Segs (test code = Segs) 70.9 45.0-75.0 [facility] CenterQdwgihjLAECMFAESU9614-75-26 20:08:00 Test Item Value Reference Range Interpretation Comments Lymphocytes (test code = Lymphocytes) 18.2 20.0-40.0 [facility] CenterKygucjbNUVRZHNEBP1714-62-30 20:08:00 Test Item Value Reference Range Interpretation Comments Monocytes (test code = Monocytes) 9.4 2.0-12.0 [facility] CenterQeqkkbeKIGBXLGLTZ7364-98-25 20:08:00 Test Item Value Reference Range Interpretation Comments Eosinophils (test code = 1.0 See_Comment [A utomated message] The Eosinophils) system which ge nerated this result tra nsmitted reference range : <=4.0. The reference r daniel was not used to int erpret this result as normal/abnormal . [facility] CenterTwxyyeoAZGYRZZDGZ1423-34-24 20:08:00 Test Item Value Reference Range Interpretation Comments Basophils (test code = 0.5 See_Comment [Aut omated message] The Basophils) system which ge nerated this result tra nsmitted reference range : <=1.0. The reference r daniel was not used to int erpret this result as normal/abnormal . [facility] CenterNjfepimBBNZNATGTN6050-26-77 20:08:00 Test Item Value Reference Range Interpretation Comments Neutrophils # (test code = Neutrophils 3.4 1.5-8.1 #) [facility] CenterAhohpurMFUONEDJKK7219-07-86 20:08:00 Test Item Value Reference Range Interpretation Comments Lymphocytes # (test code = Lymphocytes 0.9 1.0-5.5 #) [facility] CenterZjbtmakKJMHUGGTKY0203-15-93 20:08:00 Test Item Value Reference Range Interpretation Comments Monocytes # (test code 0.4 See_Comment [Aut omated message] The = Monocytes #) system which generated this result tra nsmitted reference range : <=0.8. The reference r daniel was not used to int erpret this result as normal/abnormal . [facility] HospitalFcmcaipCGPQSD8620-30-99 20:08:00 Test Item Value Reference Range Interpretation Comments LDL (Calculated) (test code = LDL 70 (Calculated)) [place] 659720-11-21 20:08:00 Test Item Value Reference Range Interpretation Comments Trig (test code = Trig) [address] [facility] [address] HospitalPhvtbryCYQORN2967-41-69 20:08:00 Test Item Value Reference Range Interpretation Comments Chol (test code = Chol) 140 [facility] CenterXeryjygODNDMQ2277-68-90 20:08:00 Test Item Value Reference Range Interpretation Comments HDL (test code = HDL) 60 [facility] CenterWcqpbjdNKSRVR1419-41-66 20:08:00 Test Item Value Reference Range Interpretation Comments CHD Risk (test code = CHD Risk) 2.33 1 3.90-5.[address] [facility] [address] HospitalCcutbkvKNVBFD3371-74-41 20:08:00 Test Item Value Reference Range Interpretation Comments VLDL (test code = VLDL) 10 1 [place] 447990-11-21 20:08:00 Test Item Value Reference Range Interpretation Comments Glucose Lvl (test code = Glucose Lvl) 100 70-99 [place] 447990-11-21 20:08:00 Test Item Value Reference Range Interpretation Comments BUN (test code = BUN) 6 7-22 [place] 447990-11-21 20:08:00 Test Item Value Reference Range Interpretation Comments Creatinine Lvl (test code = Creatinine 0.52 0.50-1.40 Lvl) [facility]2020-11-21 20:08:00 Test Item Value Reference Range Interpretation Comments Sodium Lvl (test code = Sodium Lvl) 138 135-145 [facility]2020-11-21 20:08:00 Test Item Value Reference Range Interpretation Comments Potassium Lvl (test code = Potassium 3.5 3.5-5.1 Lvl) [facility]2020-11-21 20:08:00 Test Item Value Reference Range Interpretation Comments Chloride Lvl (test code = Chloride Lvl) 109 95-109 [facility]2020-11-21 20:08:00 Test Item Value Reference Range Interpretation Comments CO2 (test code = CO2) 25 24-32 [place] 447990-11-21 20:08:00 Test Item Value Reference Range Interpretation Comments AGAP (test code = AGAP) 7.5 10.0-20.0 [place] 447990-11-21 20:08:00 Test Item Value Reference Range Interpretation Comments eGFR (test code = eGFR) 127 [place] 447990-11-21 20:08:00 Test Item Value Reference Range Interpretation Comments Total Protein (test code = Total 6.3 6.4-8.4 Protein) [facility]2020-11-21 20:08:00 Test Item Value Reference Range Interpretation Comments Albumin Lvl (test code = Albumin Lvl) 3.2 3.5-5.0 [facility]2020-11-21 20:08:00 Test Item Value Reference Range Interpretation Comments ALT (test code = ALT) 314 See_Comment [Auto mated message] The system which ge nerated this result transmit jeremías reference range : <=65. The reference range was not used to interpr et this result as vernell l/abnormal. [facility]2020-11-21 20:08:00 Test Item Value Reference Range Interpretation Comments AST (test code = AST) 322 See_Comment [Auto mated message] The system which ge nerated this result transmit jeremías reference range : <=37. The reference range was not used to interpr et this result as vernell l/abnormal. [facility] [employer] [id number] 20:08:00 Test Item Value Reference Range Interpretation Comments Alk Phos (test code = Alk Phos) 144 39-136 [facility] [employer] [id number] 20:08:00 Test Item Value Reference Range Interpretation Comments Bili Total (test code = Bili Total) 1.4 0.2-1.3 [facility] [employer] [id number] 20:08:00 Test Item Value Reference Range Interpretation Comments Bili Direct (test code 0.5 See_Comment [Aut omated message] The = Bili Direct) system which generated this result tra nsmitted reference range : <=0.3. The reference r daniel was not used to int erpret this result as vernell l/abnormal. [facility]2020-11-21 20:08:00 Test Item Value Reference Range Interpretation Comments Bili Indirect (test 0.9 See_Comment [Automa jeremías message] The code = Bili Indirect) system which generated this result tra nsmitted reference range : <=1.0. The reference r daniel was not used to int erpret this result as normal/abnormal . [facility] [employer] [id number] 20:08:00 Test Item Value Reference Range Interpretation Comments Globulin (test code = Globulin) 3.1 2.7-4.2 [facility]2020-11-21 20:08:00 Test Item Value Reference Range Interpretation Comments A/G Ratio (test code = A/G Ratio) 1.0 1 0.7-1.6 [facility] [employer] [id number] 20:08:00 Test Item Value Reference Range Interpretation Comments Lactic Acid Lvl (test code = Lactic 0.7 0.5-2.2 Acid Lvl) [facility]2020-11-21 20:08:00 Test Item Value Reference Range Interpretation Comments Magnesium Lvl (test code = Magnesium 1.9 1.8-2.4 Lvl) [facility]2020-11-21 20:08:00 Test Item Value Reference Range Interpretation Comments Phosphorus (test code = Phosphorus) 2.9 2.5-4.5 [facility]2020-11-21 20:08:00 Test Item Value Reference Range Interpretation Comments Lipase Lvl (test code = Lipase Lvl) 1600 73-393 [facility]2020-11-21 20:08:00 Test Item Value Reference Range Interpretation Comments Amylase Lvl (test code = Amylase Lvl) 336 25-115 [facility]InapdvqYUCXGUIDRF5437-13-31 20:08:00 Test Item Value Reference Range Interpretation Comments WBC (test code = WBC) 4.8 3.7-10.4 [facility] CenterMgxqcsaVKRCJIIDCK8342-48-14 20:08:00 Test Item Value Reference Range Interpretation Comments RBC (test code = RBC) 3.60 4.20-5.40 [facility] CenterIxsgoooLDCHXYPYAE2301-83-55 20:08:00 Test Item Value Reference Range Interpretation Comments Hgb (test code = Hgb) 11.4 12.0-16.0 [facility] CenterTcqgymsOYJODJYFDO1607-54-59 20:08:00 Test Item Value Reference Range Interpretation Comments Hct (test code = Hct) 33.0 36.0-48.0 [facility] CenterDizegphKQWLFESKRJ5027-15-07 20:08:00 Test Item Value Reference Range Interpretation Comments MCV (test code = MCV) 91.8 80.0-98.0 [place] 235960-11-21 20:08:00 Test Item Value Reference Range Interpretation Comments MCH (test code = MCH) 31.6 pg 27.0-31.0 [place] 235960-11-21 20:08:00 Test Item Value Reference Range Interpretation Comments MCHC (test code = MCHC) 34.4 32.0-36.0 [place] 235960-11-21 20:08:00 Test Item Value Reference Range Interpretation Comments RDW (test code = RDW) 12.5 11.5-14.5 [place] 235960-11-21 20:08:00 Test Item Value Reference Range Interpretation Comments Platelet (test code = Platelet) 166 133-450 [facility] CenterFbbstpqLFSWQLVAGN8470-15-62 20:08:00 Test Item Value Reference Range Interpretation Comments MPV (test code = MPV) 8.8 7.4-10.4 [place] 235960-11-21 20:08:00 Test Item Value Reference Range Interpretation Comments PT (test code = PT) 15.6 s 12.0-14.7 [place] 235960-11-21 20:08:00 Test Item Value Reference Range Interpretation Comments INR (test code = INR) 1.23 1 0.85-1.17 [place] 235960-11-21 20:08:00 Test Item Value Reference Range Interpretation Comments Segs (test code = Segs) 70.9 45.0-75.0 [place] 235960-11-21 20:08:00 Test Item Value Reference Range Interpretation Comments Lymphocytes (test code = Lymphocytes) 18.2 20.0-40.0 [place] 235960-11-21 20:08:00 Test Item Value Reference Range Interpretation Comments Monocytes (test code = Monocytes) 9.4 2.0-12.0 [facility] CenterFuvoxitWVCJVFJSFJ7951-06-54 20:08:00 Test Item Value Reference Range Interpretation Comments Eosinophils (test code = 1.0 See_Comment [A utomated message] The Eosinophils) system which ge nerated this result tra nsmitted reference range : <=4.0. The reference r daniel was not used to int erpret this result as normal/abnormal . [facility] CenterMvdlkkqYHTCPWONGO5864-60-47 20:08:00 Test Item Value Reference Range Interpretation Comments Basophils (test code = 0.5 See_Comment [Aut omated message] The Basophils) system which ge nerated this result tra nsmitted reference range : <=1.0. The reference r daniel was not used to int erpret this result as normal/abnormal . [facility] CenterEnraulfNOKTTHNTOK9810-83-96 20:08:00 Test Item Value Reference Range Interpretation Comments Neutrophils # (test code = Neutrophils 3.4 1.5-8.1 #) [facility] CenterAdchmztTNVLBEGHUW0897-67-32 20:08:00 Test Item Value Reference Range Interpretation Comments Lymphocytes # (test code = Lymphocytes 0.9 1.0-5.5 #) [facility]BdfcpkrEWJHFWZXFO9693-49-83 20:08:00 Test Item Value Reference Range Interpretation Comments Monocytes # (test code 0.4 See_Comment [Aut omated message] The = Monocytes #) system which generated this result tra nsmitted reference range : <=0.8. The reference r daniel was not used to int erpret this result as normal/abnormal . [facility] HospitalMykzkgtDYFWYF8228-53-32 20:08:00 Test Item Value Reference Range Interpretation Comments LDL (Calculated) (test code = LDL 70 (Calculated)) [facility] HospitalLtrnatpZYVSCQ9750-56-09 20:08:00 Test Item Value Reference Range Interpretation Comments Trig (test code = Trig) 50 [place] [address]-11-21 20:08:00 Test Item Value Reference Range Interpretation Comments Chol (test code = Chol) 140 [place] 659720-11-21 20:08:00 Test Item Value Reference Range Interpretation Comments HDL (test code = HDL) [address] [facility] [address] [facility] HospitalJsnyfcjTIADLB1544-38-52 20:08:00 Test Item Value Reference Range Interpretation Comments CHD Risk (test code = CHD Risk) 2.33 1 3.90-5.80 [place] 659720-11-21 20:08:00 Test Item Value Reference Range Interpretation Comments VLDL (test code = VLDL) 10 1 [place] 447990-11-21 20:08:00 Test Item Value Reference Range Interpretation Comments Glucose Lvl (test code = Glucose Lvl) 100 70-99 [facility]2020-11-21 20:08:00 Test Item Value Reference Range Interpretation Comments BUN (test code = BUN) 6 7-22 [place] 447990-11-21 20:08:00 Test Item Value Reference Range Interpretation Comments Creatinine Lvl (test code = Creatinine 0.52 0.50-1.40 Lvl) [facility]2020-11-21 20:08:00 Test Item Value Reference Range Interpretation Comments Sodium Lvl (test code = Sodium Lvl) 138 135-145 [facility]2020-11-21 20:08:00 Test Item Value Reference Range Interpretation Comments Potassium Lvl (test code = Potassium 3.5 3.5-5.1 Lvl) [facility] 38111XGLRJ3987-14-25 20:08:00 Test Item Value Reference Range Interpretation Comments Chloride Lvl (test code = Chloride Lvl) 109 95-109 [place] [address]-11-21 20:08:00 Test Item Value Reference Range Interpretation Comments CO2 (test code = CO2) 25 24-32 [place] 447990-11-21 20:08:00 Test Item Value Reference Range Interpretation Comments AGAP (test code = AGAP) 7.5 10.0-20.0 [facility] [id number] 20:08:00 Test Item Value Reference Range Interpretation Comments eGFR (test code = eGFR) 127 [facility] [id number] 20:08:00 Test Item Value Reference Range Interpretation Comments Total Protein (test code = Total 6.3 6.4-8.4 Protein) [place] [address]-11-21 20:08:00 Test Item Value Reference Range Interpretation Comments Albumin Lvl (test code = Albumin Lvl) 3.2 3.5-5.0 [facility] [id number] 20:08:00 Test Item Value Reference Range Interpretation Comments ALT (test code = ALT) 314 See_Comment [Auto mated message] The system which ge nerated this result transmit jeremías reference range : <=65. The reference range was not used to interpr et this result as vernell l/abnormal. [facility] [id number] 20:08:00 Test Item Value Reference Range Interpretation Comments AST (test code = AST) 322 See_Comment [Auto mated message] The system which ge nerated this result transmit jeremías reference range : <=37. The reference range was not used to interpr et this result as vernell l/abnormal. [facility] [employer] [id number] 20:08:00 Test Item Value Reference Range Interpretation Comments Alk Phos (test code = Alk Phos) 144 39-[address] [facility]Flow[facility] [id number] 20:08:00 Test Item Value Reference Range Interpretation Comments Bili Total (test code = Bili Total) 1.4 0.2-1.[address] [facility] [address] [id number] 20:08:00 Test Item Value Reference Range Interpretation Comments Bili Direct (test code 0.5 See_Comment [Aut omated message] The = Bili Direct) system which generated this result tra nsmitted reference range : <=0.3. The reference r daniel was not used to int erpret this result as vernell l/abnormal. [place] 447990-11-21 20:08:00 Test Item Value Reference Range Interpretation Comments Bili Indirect (test 0.9 See_Comment [Automa jeremías message] The code = Bili Indirect) system which generated this result tra nsmitted reference range : <=1.0. The reference r daniel was not used to int erpret this result as normal/abnormal . [facility]2020-11-21 20:08:00 Test Item Value Reference Range Interpretation Comments Globulin (test code = Globulin) 3.1 2.7-4.2 [place] 447990-11-21 20:08:00 Test Item Value Reference Range Interpretation Comments A/G Ratio (test code = A/G Ratio) 1.0 1 0.7-1.6 [place] [address]-11-21 20:08:00 Test Item Value Reference Range Interpretation Comments Lactic Acid Lvl (test code = Lactic 0.7 0.5-2.2 Acid Lvl) [place] 447990-11-21 20:08:00 Test Item Value Reference Range Interpretation Comments Magnesium Lvl (test code = Magnesium 1.9 1.8-2.4 Lvl) [place] 447990-11-21 20:08:00 Test Item Value Reference Range Interpretation Comments Phosphorus (test code = Phosphorus) 2.9 2.5-4.5 [place] 447990-11-21 20:08:00 Test Item Value Reference Range Interpretation Comments Lipase Lvl (test code = Lipase Lvl) 1600 73-393 [facility] [id number] 20:08:00 Test Item Value Reference Range Interpretation Comments Amylase Lvl (test code = Amylase Lvl) 336 25-115 [place] 235960-11-21 20:08:00 Test Item Value Reference Range Interpretation Comments WBC (test code = WBC) 4.8 3.7-10.4 [place] 235960-11-21 20:08:00 Test Item Value Reference Range Interpretation Comments RBC (test code = RBC) 3.60 4.20-5.40 [facility] CenterVdatcckWXXSOHCYGY1502-47-94 20:08:00 Test Item Value Reference Range Interpretation Comments Hgb (test code = Hgb) 11.4 12.0-16.0 [facility] CenterRmfcpshUAEZMJTUCC2394-51-28 20:08:00 Test Item Value Reference Range Interpretation Comments Hct (test code = Hct) 33.0 36.0-48.0 [facility] CenterNmbvuqvDGHHOUERZY2260-64-50 20:08:00 Test Item Value Reference Range Interpretation Comments MCV (test code = MCV) 91.8 80.0-98.0 [facility] CenterTgfmdabITGDWXKRFU1637-55-41 20:08:00 Test Item Value Reference Range Interpretation Comments MCH (test code = MCH) 31.6 pg 27.0-31.0 [facility] CenterKpmwxsaGQOXRUPQMB9859-34-41 20:08:00 Test Item Value Reference Range Interpretation Comments MCHC (test code = MCHC) 34.4 32.0-36.0 [facility] CenterGsftykrADYJYQRETO5951-20-14 20:08:00 Test Item Value Reference Range Interpretation Comments RDW (test code = RDW) 12.5 11.5-14.5 [facility] CenterDfnrwwaOHNRKLKGZC2564-17-16 20:08:00 Test Item Value Reference Range Interpretation Comments Platelet (test code = Platelet) 166 133-450 [facility] CenterSvrxzzpWKLFTAOJVG0452-73-03 20:08:00 Test Item Value Reference Range Interpretation Comments MPV (test code = MPV) 8.8 7.4-10.4 [facility] CenterTuyhnagCDFTJBOKKV2899-11-08 20:08:00 Test Item Value Reference Range Interpretation Comments PT (test code = PT) 15.6 s 12.0-14.7 [facility] CenterFjeekkoQCCRHZYUPD6079-65-56 20:08:00 Test Item Value Reference Range Interpretation Comments INR (test code = INR) 1.23 1 0.85-1.17 [facility] CenterVpecyttLXGIMNATTC8493-46-92 20:08:00 Test Item Value Reference Range Interpretation Comments Segs (test code = Segs) 70.9 45.0-75.0 [facility] CenterUffthjbFQBSCWRIWQ0821-44-41 20:08:00 Test Item Value Reference Range Interpretation Comments Lymphocytes (test code = Lymphocytes) 18.2 20.0-40.0 [place] 235960-11-21 20:08:00 Test Item Value Reference Range Interpretation Comments Monocytes (test code = Monocytes) 9.4 2.0-12.0 [place] 235960-11-21 20:08:00 Test Item Value Reference Range Interpretation Comments Eosinophils (test code = 1.0 See_Comment [A utomated message] The Eosinophils) system which ge nerated this result tra nsmitted reference range : <=4.0. The reference r daniel was not used to int erpret this result as normal/abnormal . [place] 235960-11-21 20:08:00 Test Item Value Reference Range Interpretation Comments Basophils (test code = 0.5 See_Comment [Aut omated message] The Basophils) system which ge nerated this result tra nsmitted reference range : <=1.0. The reference r daniel was not used to int erpret this result as normal/abnormal . [facility] CenterEcniutgIZHRVFKOKD9387-16-18 20:08:00 Test Item Value Reference Range Interpretation Comments Neutrophils # (test code = Neutrophils 3.4 1.5-8.1 #) [facility] CenterCyaldmrZTDSWHSRBB3201-77-47 20:08:00 Test Item Value Reference Range Interpretation Comments Lymphocytes # (test code = Lymphocytes 0.9 1.0-5.5 #) [facility] CenterKekappkWYVBQTRRVM9894-65-84 20:08:00 Test Item Value Reference Range Interpretation Comments Monocytes # (test code 0.4 See_Comment [Aut omated message] The = Monocytes #) system which generated this result tra nsmitted reference range : <=0.8. The reference r daniel was not used to int erpret this result as normal/abnormal . [place] 659720-11-21 20:08:00 Test Item Value Reference Range Interpretation Comments LDL (Calculated) (test code = LDL 70 (Calculated)) [place] 659720-11-21 20:08:00 Test Item Value Reference Range Interpretation Comments Trig (test code = Trig) 50 [place] 659720-11-21 20:08:00 Test Item Value Reference Range Interpretation Comments Chol (test code = Chol) 140 [place] 659720-11-21 20:08:00 Test Item Value Reference Range Interpretation Comments HDL (test code = HDL) 60 [place] 659720-11-21 20:08:00 Test Item Value Reference Range Interpretation Comments CHD Risk (test code = CHD Risk) 2.33 1 3.90-5.[address] [facility] [address] HospitalFpedpvnEEKISJ3011-45-54 20:08:00 Test Item Value Reference Range Interpretation Comments VLDL (test code = VLDL) 10 1 [facility] [id number] 20:08:00 Test Item Value Reference Range Interpretation Comments Glucose Lvl (test code = Glucose Lvl) 100 70-[address] [facility] [id number] 20:08:00 Test Item Value Reference Range Interpretation Comments BUN (test code = BUN) 6 7-22 [facility] [id number] 20:08:00 Test Item Value Reference Range Interpretation Comments Creatinine Lvl (test code = Creatinine 0.52 0.50-1.40 Lvl) [facility] [id number] 20:08:00 Test Item Value Reference Range Interpretation Comments Sodium Lvl (test code = Sodium Lvl) 138 135-145 [facility] [id number] 20:08:00 Test Item Value Reference Range Interpretation Comments Potassium Lvl (test code = Potassium 3.5 3.5-5.1 Lvl) [facility] [id number] 20:08:00 Test Item Value Reference Range Interpretation Comments Chloride Lvl (test code = Chloride Lvl) 109 95-109 [facility] [id number] 20:08:00 Test Item Value Reference Range Interpretation Comments CO2 (test code = CO2) 25 24-[address] [facility] [id number] 20:08:00 Test Item Value Reference Range Interpretation Comments AGAP (test code = AGAP) 7.5 10.0-20.[address] [facility] [id number] 20:08:00 Test Item Value Reference Range Interpretation Comments eGFR (test code = eGFR) 127 [facility] [id number] 20:08:00 Test Item Value Reference Range Interpretation Comments Total Protein (test code = Total 6.3 6.4-8.4 Protein) [facility] [id number] 20:08:00 Test Item Value Reference Range Interpretation Comments Albumin Lvl (test code = Albumin Lvl) 3.2 3.5-5.0 [facility]2020-11-21 20:08:00 Test Item Value Reference Range Interpretation Comments ALT (test code = ALT) 314 See_Comment [Auto mated message] The system which ge nerated this result transmit jeremías reference range : <=65. The reference range was not used to interpr et this result as vernell l/abnormal. [facility] [employer] [id number] 20:08:00 Test Item Value Reference Range Interpretation Comments AST (test code = AST) 322 See_Comment [Auto mated message] The system which ge nerated this result transmit jeremías reference range : <=37. The reference range was not used to interpr et this result as vernell l/abnormal. [facility]2020-11-21 20:08:00 Test Item Value Reference Range Interpretation Comments Alk Phos (test code = Alk Phos) 144 39-136 [facility]2020-11-21 20:08:00 Test Item Value Reference Range Interpretation Comments Bili Total (test code = Bili Total) 1.4 0.2-1.3 [facility] [employer] [id number] 20:08:00 Test Item Value Reference Range Interpretation Comments Bili Direct (test code 0.5 See_Comment [Aut omated message] The = Bili Direct) system which generated this result tra nsmitted reference range : <=0.3. The reference r daniel was not used to int erpret this result as vernell l/abnormal. [facility]2020-11-21 20:08:00 Test Item Value Reference Range Interpretation Comments Bili Indirect (test 0.9 See_Comment [Automa jeremías message] The code = Bili Indirect) system which generated this result tra nsmitted reference range : <=1.0. The reference r daniel was not used to int erpret this result as normal/abnormal . [facility] [employer] [id number] 20:08:00 Test Item Value Reference Range Interpretation Comments Globulin (test code = Globulin) 3.1 2.7-4.2 [facility] [employer] [id number] 20:08:00 Test Item Value Reference Range Interpretation Comments A/G Ratio (test code = A/G Ratio) 1.0 1 0.7-1.6 [facility] [employer] [id number] 20:08:00 Test Item Value Reference Range Interpretation Comments Lactic Acid Lvl (test code = Lactic 0.7 0.5-2.2 Acid Lvl) [facility]2020-11-21 20:08:00 Test Item Value Reference Range Interpretation Comments Magnesium Lvl (test code = Magnesium 1.9 1.8-2.4 Lvl) [facility]2020-11-21 20:08:00 Test Item Value Reference Range Interpretation Comments Phosphorus (test code = Phosphorus) 2.9 2.5-4.5 [facility]2020-11-21 20:08:00 Test Item Value Reference Range Interpretation Comments Lipase Lvl (test code = Lipase Lvl) 1600 73-393 [facility]2020-11-21 20:08:00 Test Item Value Reference Range Interpretation Comments Amylase Lvl (test code = Amylase Lvl) 336 25-115 [facility] CenterCcgvjowTPMFYHKYAD1934-24-44 20:08:00 Test Item Value Reference Range Interpretation Comments WBC (test code = WBC) 4.8 3.7-10.4 [place] 235960-11-21 20:08:00 Test Item Value Reference Range Interpretation Comments RBC (test code = RBC) 3.60 4.20-5.40 [place] 235960-11-21 20:08:00 Test Item Value Reference Range Interpretation Comments Hgb (test code = Hgb) 11.4 12.0-16.0 [place] 235960-11-21 20:08:00 Test Item Value Reference Range Interpretation Comments Hct (test code = Hct) 33.0 36.0-48.0 [place] 235960-11-21 20:08:00 Test Item Value Reference Range Interpretation Comments MCV (test code = MCV) 91.8 80.0-98.0 [place] 235960-11-21 20:08:00 Test Item Value Reference Range Interpretation Comments MCH (test code = MCH) 31.6 pg 27.0-31.0 [place] 235960-11-21 20:08:00 Test Item Value Reference Range Interpretation Comments MCHC (test code = MCHC) 34.4 32.0-36.0 [place] 235960-11-21 20:08:00 Test Item Value Reference Range Interpretation Comments RDW (test code = RDW) 12.5 11.5-14.5 [facility] CenterKgcafbsCHQNLUEDJI3379-84-52 20:08:00 Test Item Value Reference Range Interpretation Comments Platelet (test code = Platelet) 166 133-450 [facility] CenterIzwtxrhGCHSBXEUPO6519-61-00 20:08:00 Test Item Value Reference Range Interpretation Comments MPV (test code = MPV) 8.8 7.4-10.4 [facility] CenterNnradvpTGPYMSKXMQ2632-08-44 20:08:00 Test Item Value Reference Range Interpretation Comments PT (test code = PT) 15.6 s 12.0-14.7 [facility] CenterIfqhbbtISOXYGHAQJ3750-88-01 20:08:00 Test Item Value Reference Range Interpretation Comments INR (test code = INR) 1.23 1 0.85-1.17 [facility] CenterMpsomxkDFUWRVGMMJ3150-73-53 20:08:00 Test Item Value Reference Range Interpretation Comments Segs (test code = Segs) 70.9 45.0-75.0 [facility] CenterKajzverWIITCQFYBG7130-88-95 20:08:00 Test Item Value Reference Range Interpretation Comments Lymphocytes (test code = Lymphocytes) 18.2 20.0-40.0 [place] 235960-11-21 20:08:00 Test Item Value Reference Range Interpretation Comments Monocytes (test code = Monocytes) 9.4 2.0-12.0 [facility] CenterYiwschjGZKGZUFYZW3154-58-95 20:08:00 Test Item Value Reference Range Interpretation Comments Eosinophils (test code = 1.0 See_Comment [A utomated message] The Eosinophils) system which ge nerated this result tra nsmitted reference range : <=4.0. The reference r daniel was not used to int erpret this result as normal/abnormal . [facility] [id number] 20:08:00 Test Item Value Reference Range Interpretation Comments Basophils (test code = 0.5 See_Comment [Aut omated message] The Basophils) system which ge nerated this result tra nsmitted reference range : <=1.0. The reference r daniel was not used to int erpret this result as normal/abnormal . [place] 235960-11-21 20:08:00 Test Item Value Reference Range Interpretation Comments Neutrophils # (test code = Neutrophils 3.4 1.5-8.1 #) [facility]oluxarMVUUVIOOZQ5383-38-02 20:08:00 Test Item Value Reference Range Interpretation Comments Lymphocytes # (test code = Lymphocytes 0.9 1.0-5.5 #) [facility] CenterDzsyzhlFNNBKFJSRV5089-80-87 20:08:00 Test Item Value Reference Range Interpretation Comments Monocytes # (test code 0.4 See_Comment [Aut omated message] The = Monocytes #) system which generated this result tra nsmitted reference range : <=0.8. The reference r daniel was not used to int erpret this result as normal/abnormal . [facility]fwrurnUKPQJW0335-64-95 20:08:00 Test Item Value Reference Range Interpretation Comments LDL (Calculated) (test code = LDL 70 (Calculated)) [place] 659720-11-21 20:08:00 Test Item Value Reference Range Interpretation Comments Trig (test code = Trig) 50 [place] 659720-11-21 20:08:00 Test Item Value Reference Range Interpretation Comments Chol (test code = Chol) 140 [place] 659720-11-21 20:08:00 Test Item Value Reference Range Interpretation Comments HDL (test code = HDL) 60 [place] [address]-11-21 20:08:00 Test Item Value Reference Range Interpretation Comments CHD Risk (test code = CHD Risk) 2.33 1 3.90-5.80 [place] 659720-11-21 20:08:00 Test Item Value Reference Range Interpretation Comments VLDL (test code = VLDL) [address] [facility] [id number] 20:08:00 Test Item Value Reference Range Interpretation Comments Glucose Lvl (test code = Glucose Lvl) 100 70-99 [facility]2020-11-21 20:08:00 Test Item Value Reference Range Interpretation Comments BUN (test code = BUN) 6 7-22 [place] 447990-11-21 20:08:00 Test Item Value Reference Range Interpretation Comments Creatinine Lvl (test code = Creatinine 0.52 0.50-1.40 Lvl) [place] 447990-11-21 20:08:00 Test Item Value Reference Range Interpretation Comments Sodium Lvl (test code = Sodium Lvl) 138 135-[address] [facility] [id number] 20:08:00 Test Item Value Reference Range Interpretation Comments Potassium Lvl (test code = Potassium 3.5 3.5-5.1 Lvl) [facility] [id number] 20:08:00 Test Item Value Reference Range Interpretation Comments Chloride Lvl (test code = Chloride Lvl) 109 95-109 [place] 447990-11-21 20:08:00 Test Item Value Reference Range Interpretation Comments CO2 (test code = CO2) 25 24-32 [facility] [id number] 20:08:00 Test Item Value Reference Range Interpretation Comments AGAP (test code = AGAP) 7.5 10.0-20.0 [facility] [id number] 20:08:00 Test Item Value Reference Range Interpretation Comments eGFR (test code = eGFR) 127 [facility] [id number] 20:08:00 Test Item Value Reference Range Interpretation Comments Total Protein (test code = Total 6.3 6.4-8.4 Protein) [facility] [id number] 20:08:00 Test Item Value Reference Range Interpretation Comments Albumin Lvl (test code = Albumin Lvl) 3.2 3.5-5.0 [facility] [id number] 20:08:00 Test Item Value Reference Range Interpretation Comments ALT (test code = ALT) 314 See_Comment [Auto mated message] The system which ge nerated this result transmit jeremías reference range : <=65. The reference range was not used to interpr et this result as vernell l/abnormal. [facility] [employer] [id number] 20:08:00 Test Item Value Reference Range Interpretation Comments AST (test code = AST) 322 See_Comment [Auto mated message] The system which ge nerated this result transmit jeremías reference range : <=37. The reference range was not used to interpr et this result as vernell l/abnormal. [facility] [employer] [id number] 20:08:00 Test Item Value Reference Range Interpretation Comments Alk Phos (test code = Alk Phos) 144 39-136 [facility] [id number] 20:08:00 Test Item Value Reference Range Interpretation Comments Bili Total (test code = Bili Total) 1.4 0.2-1.3 [facility] [id number] 20:08:00 Test Item Value Reference Range Interpretation Comments Bili Direct (test code 0.5 See_Comment [Aut omated message] The = Bili Direct) system which generated this result tra nsmitted reference range : <=0.3. The reference r daniel was not used to int erpret this result as vernell l/abnormal. [facility] [id number] 20:08:00 Test Item Value Reference Range Interpretation Comments Bili Indirect (test 0.9 See_Comment [Automa jeremías message] The code = Bili Indirect) system which generated this result tra nsmitted reference range : <=1.0. The reference r daniel was not used to int erpret this result as normal/abnormal . [facility] [id number] 20:08:00 Test Item Value Reference Range Interpretation Comments Globulin (test code = Globulin) 3.1 2.7-4.[address] [facility] [id number] 20:08:00 Test Item Value Reference Range Interpretation Comments A/G Ratio (test code = A/G Ratio) 1.0 1 0.7-1.[address] [facility] [id number] 20:08:00 Test Item Value Reference Range Interpretation Comments Lactic Acid Lvl (test code = Lactic 0.7 0.5-2.2 Acid Lvl) [facility] [id number] 20:08:00 Test Item Value Reference Range Interpretation Comments Magnesium Lvl (test code = Magnesium 1.9 1.8-2.4 Lvl) [facility] [id number] 20:08:00 Test Item Value Reference Range Interpretation Comments Phosphorus (test code = Phosphorus) 2.9 2.5-4.5 [facility] [id number] 20:08:00 Test Item Value Reference Range Interpretation Comments Lipase Lvl (test code = Lipase Lvl) 1600 73-[address] [facility] [id number] 20:08:00 Test Item Value Reference Range Interpretation Comments Amylase Lvl (test code = Amylase Lvl) 336 25-115 [place] 235960-11-21 20:08:00 Test Item Value Reference Range Interpretation Comments WBC (test code = WBC) 4.8 3.7-10.4 [place] 235960-11-21 20:08:00 Test Item Value Reference Range Interpretation Comments RBC (test code = RBC) 3.60 4.20-5.40 [facility] CenterKkxwzrmVNIWXAKFQP8892-54-82 20:08:00 Test Item Value Reference Range Interpretation Comments Hgb (test code = Hgb) 11.4 12.0-16.0 [facility] CenterHnrcjbrNHKYHQSPUJ1505-19-55 20:08:00 Test Item Value Reference Range Interpretation Comments Hct (test code = Hct) 33.0 36.0-48.0 [facility] CenterXisxjmnFQHFIHCAYD0117-13-84 20:08:00 Test Item Value Reference Range Interpretation Comments MCV (test code = MCV) 91.8 80.0-98.0 [facility] CenterZqdseimLEZVAXIMLJ6721-09-50 20:08:00 Test Item Value Reference Range Interpretation Comments MCH (test code = MCH) 31.6 pg 27.0-31.0 [facility] CenterBdjmmbrVBDRCZNKCS9116-76-26 20:08:00 Test Item Value Reference Range Interpretation Comments MCHC (test code = MCHC) 34.4 32.0-36.0 [facility] CenterFepgrhwLEASOREKUS5943-78-55 20:08:00 Test Item Value Reference Range Interpretation Comments RDW (test code = RDW) 12.5 11.5-14.5 [facility] CenterByzwsscYAJMZBRYOP3861-67-52 20:08:00 Test Item Value Reference Range Interpretation Comments Platelet (test code = Platelet) 166 133-450 [facility] CenterQdlkklyERJPXTZODX0543-54-20 20:08:00 Test Item Value Reference Range Interpretation Comments MPV (test code = MPV) 8.8 7.4-10.4 [facility] CenterSmpclsjJKBBMVWKXF6246-98-87 20:08:00 Test Item Value Reference Range Interpretation Comments PT (test code = PT) 15.6 s 12.0-14.7 [facility] CenterNyqnhjzFLSQIVNSUX0487-38-67 20:08:00 Test Item Value Reference Range Interpretation Comments INR (test code = INR) 1.23 1 0.85-1.17 [facility] CenterFvmcoabNKYVKBVDGQ8822-23-41 20:08:00 Test Item Value Reference Range Interpretation Comments Segs (test code = Segs) 70.9 45.0-75.0 [facility] CenterZakkxwbYYCQNHACLF3970-96-35 20:08:00 Test Item Value Reference Range Interpretation Comments Lymphocytes (test code = Lymphocytes) 18.2 20.0-40.0 [facility] CenterUuwnjjyGPDYFAFUZI8678-49-37 20:08:00 Test Item Value Reference Range Interpretation Comments Monocytes (test code = Monocytes) 9.4 2.0-12.0 [facility] CenterHpwazdlTIMXGNWPBP9594-90-87 20:08:00 Test Item Value Reference Range Interpretation Comments Eosinophils (test code = 1.0 See_Comment [A utomated message] The Eosinophils) system which ge nerated this result tra nsmitted reference range : <=4.0. The reference r daniel was not used to int erpret this result as normal/abnormal . [facility] CenterIqfkmnaHBVBXTRJON1661-35-79 20:08:00 Test Item Value Reference Range Interpretation Comments Basophils (test code = 0.5 See_Comment [Aut omated message] The Basophils) system which ge nerated this result tra nsmitted reference range : <=1.0. The reference r danile was not used to int erpret this result as normal/abnormal . [facility] CenterHafldztIFJOHIUSOA3855-39-34 20:08:00 Test Item Value Reference Range Interpretation Comments Neutrophils # (test code = Neutrophils 3.4 1.5-8.1 #) [facility] CenterDpguthxCZJXDUMJJP8700-89-16 20:08:00 Test Item Value Reference Range Interpretation Comments Lymphocytes # (test code = Lymphocytes 0.9 1.0-5.5 #) [facility] CenterEbgxdxrTIOYKKUHPY3505-96-44 20:08:00 Test Item Value Reference Range Interpretation Comments Monocytes # (test code 0.4 See_Comment [Aut omated message] The = Monocytes #) system which generated this result tra nsmitted reference range : <=0.8. The reference r daniel was not used to int erpret this result as normal/abnormal . [facility] HospitalMpanshbPFFZHL5869-81-66 20:08:00 Test Item Value Reference Range Interpretation Comments LDL (Calculated) (test code = LDL 70 (Calculated)) [facility]ReqgedkQMCPAU6751-20-35 20:08:00 Test Item Value Reference Range Interpretation Comments Trig (test code = Trig) 50 [facility] CenterRjtorboKYNOZW3659-63-30 20:08:00 Test Item Value Reference Range Interpretation Comments Chol (test code = Chol) 140 [facility] CenterCfncpykYQBPTM8206-87-13 20:08:00 Test Item Value Reference Range Interpretation Comments HDL (test code = HDL) [address] [facility] [address] HospitalMgjqdkdUWIIIN9401-46-05 20:08:00 Test Item Value Reference Range Interpretation Comments CHD Risk (test code = CHD Risk) 2.33 1 3.90-5.[address] [facility] [address] HospitalLqnxfxlCFIRYD4436-12-33 20:08:00 Test Item Value Reference Range Interpretation Comments VLDL (test code = VLDL) 10 1 [facility]2020-11-21 20:08:00 Test Item Value Reference Range Interpretation Comments Glucose Lvl (test code = Glucose Lvl) 100 70-99 [place] 447990-11-21 20:08:00 Test Item Value Reference Range Interpretation Comments BUN (test code = BUN) 6 7-22 [facility]2020-11-21 20:08:00 Test Item Value Reference Range Interpretation Comments Creatinine Lvl (test code = Creatinine 0.52 0.50-1.40 Lvl) [facility]2020-11-21 20:08:00 Test Item Value Reference Range Interpretation Comments Sodium Lvl (test code = Sodium Lvl) 138 135-145 [facility]2020-11-21 20:08:00 Test Item Value Reference Range Interpretation Comments Potassium Lvl (test code = Potassium 3.5 3.5-5.1 Lvl) [facility]2020-11-21 20:08:00 Test Item Value Reference Range Interpretation Comments Chloride Lvl (test code = Chloride Lvl) 109 95-109 [facility]2020-11-21 20:08:00 Test Item Value Reference Range Interpretation Comments CO2 (test code = CO2) 25 24-32 [facility]2020-11-21 20:08:00 Test Item Value Reference Range Interpretation Comments AGAP (test code = AGAP) 7.5 10.0-20.0 [place] 447990-11-21 20:08:00 Test Item Value Reference Range Interpretation Comments eGFR (test code = eGFR) 127 [facility]2020-11-21 20:08:00 Test Item Value Reference Range Interpretation Comments Total Protein (test code = Total 6.3 6.4-8.4 Protein) [facility]2020-11-21 20:08:00 Test Item Value Reference Range Interpretation Comments Albumin Lvl (test code = Albumin Lvl) 3.2 3.5-5.0 [facility] [employer] [id number] 20:08:00 Test Item Value Reference Range Interpretation Comments ALT (test code = ALT) 314 See_Comment [Auto mated message] The system which ge nerated this result transmit jeremías reference range : <=65. The reference range was not used to interpr et this result as vernell l/abnormal. [facility] [employer] [id number] 20:08:00 Test Item Value Reference Range Interpretation Comments AST (test code = AST) 322 See_Comment [Auto mated message] The system which ge nerated this result transmit jeremías reference range : <=37. The reference range was not used to interpr et this result as vernell l/abnormal. [facility] [employer] [id number] 20:08:00 Test Item Value Reference Range Interpretation Comments Alk Phos (test code = Alk Phos) 144 39-136 [facility]2020-11-21 20:08:00 Test Item Value Reference Range Interpretation Comments Bili Total (test code = Bili Total) 1.4 0.2-1.3 [facility] [employer] [id number] 20:08:00 Test Item Value Reference Range Interpretation Comments Bili Direct (test code 0.5 See_Comment [Aut omated message] The = Bili Direct) system which generated this result tra nsmitted reference range : <=0.3. The reference r daniel was not used to int erpret this result as vernell l/abnormal. [facility]2020-11-21 20:08:00 Test Item Value Reference Range Interpretation Comments Bili Indirect (test 0.9 See_Comment [Automa jeremías message] The code = Bili Indirect) system which generated this result tra nsmitted reference range : <=1.0. The reference r daniel was not used to int erpret this result as normal/abnormal . [facility]2020-11-21 20:08:00 Test Item Value Reference Range Interpretation Comments Globulin (test code = Globulin) 3.1 2.7-4.2 [facility]2020-11-21 20:08:00 Test Item Value Reference Range Interpretation Comments A/G Ratio (test code = A/G Ratio) 1.0 1 0.7-1.6 [facility]2020-11-21 20:08:00 Test Item Value Reference Range Interpretation Comments Lactic Acid Lvl (test code = Lactic 0.7 0.5-2.2 Acid Lvl) [facility]2020-11-21 20:08:00 Test Item Value Reference Range Interpretation Comments Magnesium Lvl (test code = Magnesium 1.9 1.8-2.4 Lvl) [place] 447990-11-21 20:08:00 Test Item Value Reference Range Interpretation Comments Phosphorus (test code = Phosphorus) 2.9 2.5-4.5 [place] 447990-11-21 20:08:00 Test Item Value Reference Range Interpretation Comments Lipase Lvl (test code = Lipase Lvl) 1600 73-393 [facility]2020-11-21 20:08:00 Test Item Value Reference Range Interpretation Comments Amylase Lvl (test code = Amylase Lvl) 336 25-115 [facility] CenterYrcbjbwFOYGBXTOXY1761-60-97 20:08:00 Test Item Value Reference Range Interpretation Comments WBC (test code = WBC) 4.8 3.7-10.4 [place] 235960-11-21 20:08:00 Test Item Value Reference Range Interpretation Comments RBC (test code = RBC) 3.60 4.20-5.40 [facility] CenterFmwegmyFWCARSICOT0017-72-55 20:08:00 Test Item Value Reference Range Interpretation Comments Hgb (test code = Hgb) 11.4 12.0-16.0 [facility] CenterAufqotmAEOJYBJLTF8259-95-46 20:08:00 Test Item Value Reference Range Interpretation Comments Hct (test code = Hct) 33.0 36.0-48.0 [place] 235960-11-21 20:08:00 Test Item Value Reference Range Interpretation Comments MCV (test code = MCV) 91.8 80.0-98.0 [place] 235960-11-21 20:08:00 Test Item Value Reference Range Interpretation Comments MCH (test code = MCH) 31.6 pg 27.0-31.0 [facility] CenterAhaqjdtNOWSUUCVIZ1324-70-67 20:08:00 Test Item Value Reference Range Interpretation Comments MCHC (test code = MCHC) 34.4 32.0-36.0 [place] 235960-11-21 20:08:00 Test Item Value Reference Range Interpretation Comments RDW (test code = RDW) 12.5 11.5-14.5 [place] 235960-11-21 20:08:00 Test Item Value Reference Range Interpretation Comments Platelet (test code = Platelet) 166 133-450 [facility] CenterNchsnngNRKBRKVHWS6762-08-70 20:08:00 Test Item Value Reference Range Interpretation Comments MPV (test code = MPV) 8.8 7.4-10.4 [facility] CenterYtwtdpjUFFLIQGTLD4590-22-58 20:08:00 Test Item Value Reference Range Interpretation Comments PT (test code = PT) 15.6 s 12.0-14.7 [facility] CenterGvkblszLNQTHRTZMT9727-48-00 20:08:00 Test Item Value Reference Range Interpretation Comments INR (test code = INR) 1.23 1 0.85-1.17 [facility] CenterOkncxjqVMDUUDISOP1837-59-86 20:08:00 Test Item Value Reference Range Interpretation Comments Segs (test code = Segs) 70.9 45.0-75.0 [place] 235960-11-21 20:08:00 Test Item Value Reference Range Interpretation Comments Lymphocytes (test code = Lymphocytes) 18.2 20.0-40.0 [place] 235960-11-21 20:08:00 Test Item Value Reference Range Interpretation Comments Monocytes (test code = Monocytes) 9.4 2.0-12.0 [facility] CenterTysikqpAIWPGYCECP9625-75-07 20:08:00 Test Item Value Reference Range Interpretation Comments Eosinophils (test code = 1.0 See_Comment [A utomated message] The Eosinophils) system which ge nerated this result tra nsmitted reference range : <=4.0. The reference r daniel was not used to int erpret this result as normal/abnormal . [place] 235960-11-21 20:08:00 Test Item Value Reference Range Interpretation Comments Basophils (test code = 0.5 See_Comment [Aut omated message] The Basophils) system which ge nerated this result tra nsmitted reference range : <=1.0. The reference r daniel was not used to int erpret this result as normal/abnormal . [place] 235960-11-21 20:08:00 Test Item Value Reference Range Interpretation Comments Neutrophils # (test code = Neutrophils 3.4 1.5-8.1 #) [facility] CenterUqrpacnNFRCAEVIWV6407-27-44 20:08:00 Test Item Value Reference Range Interpretation Comments Lymphocytes # (test code = Lymphocytes 0.9 1.0-5.5 #) [facility] CenterDxniromYNQYHXGHQI8107-52-81 20:08:00 Test Item Value Reference Range Interpretation Comments Monocytes # (test code 0.4 See_Comment [Aut omated message] The = Monocytes #) system which generated this result tra nsmitted reference range : <=0.8. The reference r daniel was not used to int erpret this result as normal/abnormal . [facility] HospitalUlpszreNGSQOR3968-13-92 20:08:00 Test Item Value Reference Range Interpretation Comments LDL (Calculated) (test code = LDL 70 (Calculated)) [place] 659720-11-21 20:08:00 Test Item Value Reference Range Interpretation Comments Trig (test code = Trig) 50 [place] 659720-11-21 20:08:00 Test Item Value Reference Range Interpretation Comments Chol (test code = Chol) 140 [place] 659720-11-21 20:08:00 Test Item Value Reference Range Interpretation Comments HDL (test code = HDL) 60 [place] 659720-11-21 20:08:00 Test Item Value Reference Range Interpretation Comments CHD Risk (test code = CHD Risk) 2.33 1 3.90-5.80 [place] 659720-11-21 20:08:00 Test Item Value Reference Range Interpretation Comments VLDL (test code = VLDL) [address] [facility] [id number] 20:08:00 Test Item Value Reference Range Interpretation Comments Glucose Lvl (test code = Glucose Lvl) 100 70-99 [place] 447990-11-21 20:08:00 Test Item Value Reference Range Interpretation Comments BUN (test code = BUN) 6 7-22 [place] 447990-11-21 20:08:00 Test Item Value Reference Range Interpretation Comments Creatinine Lvl (test code = Creatinine 0.52 0.50-1.40 Lvl) [facility]2020-11-21 20:08:00 Test Item Value Reference Range Interpretation Comments Sodium Lvl (test code = Sodium Lvl) 138 135-145 [place] 447990-11-21 20:08:00 Test Item Value Reference Range Interpretation Comments Potassium Lvl (test code = Potassium 3.5 3.5-5.1 Lvl) [place] 447990-11-21 20:08:00 Test Item Value Reference Range Interpretation Comments Chloride Lvl (test code = Chloride Lvl) 109 95-109 [place] 447990-11-21 20:08:00 Test Item Value Reference Range Interpretation Comments CO2 (test code = CO2) 25 24-32 [place] [address]-11-21 20:08:00 Test Item Value Reference Range Interpretation Comments AGAP (test code = AGAP) 7.5 10.0-20.0 [place] 447990-11-21 20:08:00 Test Item Value Reference Range Interpretation Comments eGFR (test code = eGFR) 127 [place] 447990-11-21 20:08:00 Test Item Value Reference Range Interpretation Comments Total Protein (test code = Total 6.3 6.4-8.4 Protein) [place] 447990-11-21 20:08:00 Test Item Value Reference Range Interpretation Comments Albumin Lvl (test code = Albumin Lvl) 3.2 3.5-5.0 [facility] [id number] 20:08:00 Test Item Value Reference Range Interpretation Comments ALT (test code = ALT) 314 See_Comment [Auto mated message] The system which ge nerated this result transmit jeremías reference range : <=65. The reference range was not used to interpr et this result as vernell l/abnormal. [facility] [id number] 20:08:00 Test Item Value Reference Range Interpretation Comments AST (test code = AST) 322 See_Comment [Auto mated message] The system which ge nerated this result transmit jeremías reference range : <=37. The reference range was not used to interpr et this result as vernell l/abnormal. [facility] [id number] 20:08:00 Test Item Value Reference Range Interpretation Comments Alk Phos (test code = Alk Phos) 144 39-[address] [facility] [id number] 20:08:00 Test Item Value Reference Range Interpretation Comments Bili Total (test code = Bili Total) 1.4 0.2-1.3 [facility]2020-11-21 20:08:00 Test Item Value Reference Range Interpretation Comments Bili Direct (test code 0.5 See_Comment [Aut omated message] The = Bili Direct) system which generated this result tra nsmitted reference range : <=0.3. The reference r daniel was not used to int erpret this result as vernell l/abnormal. [facility]2020-11-21 20:08:00 Test Item Value Reference Range Interpretation Comments Bili Indirect (test 0.9 See_Comment [Automa jeremías message] The code = Bili Indirect) system which generated this result tra nsmitted reference range : <=1.0. The reference r daniel was not used to int erpret this result as normal/abnormal . [facility]2020-11-21 20:08:00 Test Item Value Reference Range Interpretation Comments Globulin (test code = Globulin) 3.1 2.7-4.2 [place] 447990-11-21 20:08:00 Test Item Value Reference Range Interpretation Comments A/G Ratio (test code = A/G Ratio) 1.0 1 0.7-1.6 [facility]2020-11-21 20:08:00 Test Item Value Reference Range Interpretation Comments Lactic Acid Lvl (test code = Lactic 0.7 0.5-2.2 Acid Lvl) [facility]2020-11-21 20:08:00 Test Item Value Reference Range Interpretation Comments Magnesium Lvl (test code = Magnesium 1.9 1.8-2.4 Lvl) [place] 447990-11-21 20:08:00 Test Item Value Reference Range Interpretation Comments Phosphorus (test code = Phosphorus) 2.9 2.5-4.5 [place] [id number] 20:08:00 Test Item Value Reference Range Interpretation Comments Lipase Lvl (test code = Lipase Lvl) 1600 73-393 [facility]2020-11-21 20:08:00 Test Item Value Reference Range Interpretation Comments Amylase Lvl (test code = Amylase Lvl) 336 25-115 [facility]pxFRKDXWEFDL3558[facility]-21 20:08:00 Test Item Value Reference Range Interpretation Comments WBC (test code = WBC) 4.8 3.7-10.4 [facility]LohjhehNCGGEOYTPA1709-75-[facility] 20:08:00 Test Item Value Reference Range Interpretation Comments RBC (test code = RBC) 3.60 4.20-5.40 [facility] CenterJramdqrWWDZYSSJBK5448-37-22 20:08:00 Test Item Value Reference Range Interpretation Comments Hgb (test code = Hgb) 11.4 12.0-16.0 [facility] CenterAiwmkeqPZDIAGWXNH4331-40-55 20:08:00 Test Item Value Reference Range Interpretation Comments Hct (test code = Hct) 33.0 36.0-48.0 [facility] CenterXzwaipfZRUDEGUBJP5109-92-01 20:08:00 Test Item Value Reference Range Interpretation Comments MCV (test code = MCV) 91.8 80.0-98.0 [facility] CenterQupdhnpXESDFHNLKL2711-76-10 20:08:00 Test Item Value Reference Range Interpretation Comments MCH (test code = MCH) 31.6 pg 27.0-31.0 [facility] CenterTktmmxyZTEIOFPSPP7852-88-80 20:08:00 Test Item Value Reference Range Interpretation Comments MCHC (test code = MCHC) 34.4 32.0-36.0 [facility] CenterGycgorkZCZBGTLVIU5786-94-72 20:08:00 Test Item Value Reference Range Interpretation Comments RDW (test code = RDW) 12.5 11.5-14.5 [facility] CenterQbqeiwzWBLCCFVSWK2818-67-79 20:08:00 Test Item Value Reference Range Interpretation Comments Platelet (test code = Platelet) 166 133-450 [facility] CenterDqhhmsiCSXTGIQKWS7685-76-91 20:08:00 Test Item Value Reference Range Interpretation Comments MPV (test code = MPV) 8.8 7.4-10.4 [facility] CenterGyeueykANHCBHXCQD8331-99-05 20:08:00 Test Item Value Reference Range Interpretation Comments PT (test code = PT) 15.6 s 12.0-14.7 [facility] CenterKhhxygcSBSYYVHSLB3071-13-17 20:08:00 Test Item Value Reference Range Interpretation Comments INR (test code = INR) 1.23 1 0.85-1.17 [facility] CenterEvmblpqXMAWPGEQKO1499-93-52 20:08:00 Test Item Value Reference Range Interpretation Comments Segs (test code = Segs) 70.9 45.0-75.0 [place] 235960-11-21 20:08:00 Test Item Value Reference Range Interpretation Comments Lymphocytes (test code = Lymphocytes) 18.2 20.0-40.0 [place] 235960-11-21 20:08:00 Test Item Value Reference Range Interpretation Comments Monocytes (test code = Monocytes) 9.4 2.0-12.0 [place] 235960-11-21 20:08:00 Test Item Value Reference Range Interpretation Comments Eosinophils (test code = 1.0 See_Comment [A utomated message] The Eosinophils) system which ge nerated this result tra nsmitted reference range : <=4.0. The reference r daniel was not used to int erpret this result as normal/abnormal . [facility] CenterWslmkiqLEGHQFGMJQ2341-00-82 20:08:00 Test Item Value Reference Range Interpretation Comments Basophils (test code = 0.5 See_Comment [Aut omated message] The Basophils) system which ge nerated this result tra nsmitted reference range : <=1.0. The reference r daniel was not used to int erpret this result as normal/abnormal . [facility] CenterIojubfpRBUVAXKRLU3814-59-87 20:08:00 Test Item Value Reference Range Interpretation Comments Neutrophils # (test code = Neutrophils 3.4 1.5-8.1 #) [facility] CenterVbcbxofORRPOEUCBM2598-25-84 20:08:00 Test Item Value Reference Range Interpretation Comments Lymphocytes # (test code = Lymphocytes 0.9 1.0-5.5 #) [facility] CenterRbwfnohWRKJHNOEKM6700-73-84 20:08:00 Test Item Value Reference Range Interpretation Comments Monocytes # (test code 0.4 See_Comment [Aut omated message] The = Monocytes #) system which generated this result tra nsmitted reference range : <=0.8. The reference r daniel was not used to int erpret this result as normal/abnormal . [place] 659720-11-21 20:08:00 Test Item Value Reference Range Interpretation Comments LDL (Calculated) (test code = LDL 70 (Calculated)) [place] 659720-11-21 20:08:00 Test Item Value Reference Range Interpretation Comments Trig (test code = Trig) 50 [facility]AfdxasoCCWLLT9183-20-27 20:08:00 Test Item Value Reference Range Interpretation Comments Chol (test code = Chol) 140 [facility]JdysldcSSELWY9465-58-96 20:08:00 Test Item Value Reference Range Interpretation Comments HDL (test code = HDL) [address] [facility] HospitalPtjhljxKTOBIM4879-31-33 20:08:00 Test Item Value Reference Range Interpretation Comments CHD Risk (test code = CHD Risk) 2.33 1 3.90-5.80 [facility] HospitalFrquaxsUNKRKJ9150-32-35 20:08:00 Test Item Value Reference Range Interpretation Comments VLDL (test code = VLDL) 10 1 [facility] [employer] [id number] 20:08:00 Test Item Value Reference Range Interpretation Comments Glucose Lvl (test code = Glucose Lvl) 100 70-99 [facility] [id number] 20:08:00 Test Item Value Reference Range Interpretation Comments BUN (test code = BUN) 6 7-22 [facility] [id number] 20:08:00 Test Item Value Reference Range Interpretation Comments Creatinine Lvl (test code = Creatinine 0.52 0.50-1.40 Lvl) [facility] [id number] 20:08:00 Test Item Value Reference Range Interpretation Comments Sodium Lvl (test code = Sodium Lvl) 138 135-145 [facility] [id number] 20:08:00 Test Item Value Reference Range Interpretation Comments Potassium Lvl (test code = Potassium 3.5 3.5-5.1 Lvl) [facility] [id number] 20:08:00 Test Item Value Reference Range Interpretation Comments Chloride Lvl (test code = Chloride Lvl) 109 95-109 [facility] [id number] 20:08:00 Test Item Value Reference Range Interpretation Comments CO2 (test code = CO2) 25 24-32 [facility] [id number] 20:08:00 Test Item Value Reference Range Interpretation Comments AGAP (test code = AGAP) 7.5 10.0-20.0 [facility] [id number] 20:08:00 Test Item Value Reference Range Interpretation Comments eGFR (test code = eGFR) 127 [facility] [id number] 20:08:00 Test Item Value Reference Range Interpretation Comments Total Protein (test code = Total 6.3 6.4-8.4 Protein) [facility]annKEN[facility]H [facility] [address]111BLKOC8622-40-00 20:08:00 Test Item Value Reference Range Interpretation Comments Albumin Lvl (test code = Albumin Lvl) 3.2 3.5-5.0 [place] [address]-11-21 20:08:00 Test Item Value Reference Range Interpretation Comments ALT (test code = ALT) 314 See_Comment [Auto mated message] The system which ge nerated this result transmit jeremías reference range : <=65. The reference range was not used to interpr et this result as vernell l/abnormal. [facility] [id number] 20:08:00 Test Item Value Reference Range Interpretation Comments AST (test code = AST) 322 See_Comment [Auto mated message] The system which ge nerated this result transmit jeremías reference range : <=37. The reference range was not used to interpr et this result as vernell l/abnormal. [facility] [id number] 20:08:00 Test Item Value Reference Range Interpretation Comments Alk Phos (test code = Alk Phos) 144 39-136 [facility] [id number] 20:08:00 Test Item Value Reference Range Interpretation Comments Bili Total (test code = Bili Total) 1.4 0.2-1.[address] [facility] [id number] 20:08:00 Test Item Value Reference Range Interpretation Comments Bili Direct (test code 0.5 See_Comment [Aut omated message] The = Bili Direct) system which generated this result tra nsmitted reference range : <=0.3. The reference r daniel was not used to int erpret this result as vernell l/abnormal. [facility] [id number] 20:08:00 Test Item Value Reference Range Interpretation Comments Bili Indirect (test 0.9 See_Comment [Automa jeremías message] The code = Bili Indirect) system which generated this result tra nsmitted reference range : <=1.0. The reference r daniel was not used to int erpret this result as normal/abnormal . [facility] [id number] 20:08:00 Test Item Value Reference Range Interpretation Comments Globulin (test code = Globulin) 3.1 2.7-4.2 [facility] [id number] 20:08:00 Test Item Value Reference Range Interpretation Comments A/G Ratio (test code = A/G Ratio) 1.0 1 0.7-1.6 [facility]2020-11-21 20:08:00 Test Item Value Reference Range Interpretation Comments Glucose Lvl (test code = Glucose Lvl) 100 70-99 [facility]2020-11-21 20:08:00 Test Item Value Reference Range Interpretation Comments BUN (test code = BUN) 6 7-22 [facility]2020-11-21 20:08:00 Test Item Value Reference Range Interpretation Comments Creatinine Lvl (test code = Creatinine 0.52 0.50-1.40 Lvl) [facility]2020-11-21 20:08:00 Test Item Value Reference Range Interpretation Comments Sodium Lvl (test code = Sodium Lvl) 138 135-145 [facility]2020-11-21 20:08:00 Test Item Value Reference Range Interpretation Comments Potassium Lvl (test code = Potassium 3.5 3.5-5.1 Lvl) [facility]2020-11-21 20:08:00 Test Item Value Reference Range Interpretation Comments Chloride Lvl (test code = Chloride Lvl) 109 95-109 [facility] HospitalWalkHubWAKE [facility] [id number] 20:08:00 Test Item Value Reference Range Interpretation Comments CO2 (test code = CO2) 25 24-32 [facility]2020-11-21 20:08:00 Test Item Value Reference Range Interpretation Comments AGAP (test code = AGAP) 7.5 10.0-20.0 [facility]2020-11-21 20:08:00 Test Item Value Reference Range Interpretation Comments eGFR (test code = eGFR) 127 [facility]2020-11-21 20:08:00 Test Item Value Reference Range Interpretation Comments Total Protein (test code = Total 6.3 6.4-8.4 Protein) [facility]2020-11-21 20:08:00 Test Item Value Reference Range Interpretation Comments Albumin Lvl (test code = Albumin Lvl) 3.2 3.5-5.0 [facility]2020-11-21 20:08:00 Test Item Value Reference Range Interpretation Comments ALT (test code = ALT) 314 <=65 [place] 447990-11-21 20:08:00 Test Item Value Reference Range Interpretation Comments AST (test code = AST) 322 <=37 [facility]2020-11-21 20:08:00 Test Item Value Reference Range Interpretation Comments Alk Phos (test code = Alk Phos) 144 39-136 [facility]2020-11-21 20:08:00 Test Item Value Reference Range Interpretation Comments Bili Total (test code = Bili Total) 1.4 0.2-1.3 [facility]2020-11-21 20:08:00 Test Item Value Reference Range Interpretation Comments Bili Direct (test code = Bili Direct) 0.5 <=0.3 [facility]2020-11-21 20:08:00 Test Item Value Reference Range Interpretation Comments Bili Indirect (test code = Bili 0.9 <=1.0 Indirect) [facility]2020-11-21 20:08:00 Test Item Value Reference Range Interpretation Comments Globulin (test code = Globulin) 3.1 2.7-4.2 [facility]2020-11-21 20:08:00 Test Item Value Reference Range Interpretation Comments A/G Ratio (test code = A/G Ratio) 1.0 1 0.7-1.6 [facility]2020-11-21 20:08:00 Test Item Value Reference Range Interpretation Comments Lactic Acid Lvl (test code = Lactic 0.7 0.5-2.2 Acid Lvl) [facility]2020-11-21 20:08:00 Test Item Value Reference Range Interpretation Comments Magnesium Lvl (test code = Magnesium 1.9 1.8-2.4 Lvl) [facility]2020-11-21 20:08:00 Test Item Value Reference Range Interpretation Comments Phosphorus (test code = Phosphorus) 2.9 2.5-4.5 [facility]2020-11-21 20:08:00 Test Item Value Reference Range Interpretation Comments Lipase Lvl (test code = Lipase Lvl) 1600 73393 [facility]2020-11-21 20:08:00 Test Item Value Reference Range Interpretation Comments Amylase Lvl (test code = Amylase Lvl) 336 25-115 [facility] MichiganRtwxupsPENNDNSSWP0906-31-71 20:08:00 Test Item Value Reference Range Interpretation Comments WBC (test code = WBC) 4.8 3.7-10.4 [facility] CenterUsvkqctTHXMOYLRBR0324-10-68 20:08:00 Test Item Value Reference Range Interpretation Comments RBC (test code = RBC) 3.60 4.20-5.40 [facility] CenterIewxdegUAGCTECJSN2891-72-25 20:08:00 Test Item Value Reference Range Interpretation Comments Hgb (test code = Hgb) 11.4 12.0-16.0 [facility] CenterOqkfxwzEVDFEJRNHH4756-28-21 20:08:00 Test Item Value Reference Range Interpretation Comments Hct (test code = Hct) 33.0 36.0-48.0 [facility] CenterRlroqsiBRQQFUSLMW4807-71-57 20:08:00 Test Item Value Reference Range Interpretation Comments MCV (test code = MCV) 91.8 80.0-98.0 [facility] CenterVfgsvcbDMLBCDDDRV1042-03-27 20:08:00 Test Item Value Reference Range Interpretation Comments MCH (test code = MCH) 31.6 pg 27.0-31.0 [facility] CenterTpobpldOJBFIDMZHC6766-20-49 20:08:00 Test Item Value Reference Range Interpretation Comments MCHC (test code = MCHC) 34.4 32.0-36.0 [facility] CenterOwrfpkzLBJDDEPKTJ4769-04-44 20:08:00 Test Item Value Reference Range Interpretation Comments RDW (test code = RDW) 12.5 11.5-14.5 [facility] CenterVqmsdkeBLQECRLCYX5489-59-68 20:08:00 Test Item Value Reference Range Interpretation Comments Platelet (test code = Platelet) 166 133-450 [facility] CenterMqkunvnUGFENZGQSU5432-73-59 20:08:00 Test Item Value Reference Range Interpretation Comments MPV (test code = MPV) 8.8 7.4-10.4 [facility] CenterDcoqijpNDPMCKIYTQ7488-65-63 20:08:00 Test Item Value Reference Range Interpretation Comments PT (test code = PT) 15.6 s 12.0-14.7 [facility] CenterGaeygprEPQWDLDWWR6863-93-14 20:08:00 Test Item Value Reference Range Interpretation Comments INR (test code = INR) 1.23 1 0.85-1.17 [facility] CenterGqugnjnCBKAFQANGM0818-90-09 20:08:00 Test Item Value Reference Range Interpretation Comments Segs (test code = Segs) 70.9 45.0-75.0 [facility] MichiganHeimdarUMTMJNPWQZ5530-17-57 20:08:00 Test Item Value Reference Range Interpretation Comments Lymphocytes (test code = Lymphocytes) 18.2 20.0-40.0 [facility] MichiganXjepwwcXBXTRUOMUY9950-12-81 20:08:00 Test Item Value Reference Range Interpretation Comments Monocytes (test code = Monocytes) 9.4 2.0-12.0 [facility] MichiganBlvhjcbIBRXNPVNGN8083-78-18 20:08:00 Test Item Value Reference Range Interpretation Comments Eosinophils (test code = Eosinophils) 1.0 <=4.0 [facility] CenterMidqqazJWROFRKLZL6559-59-13 20:08:00 Test Item Value Reference Range Interpretation Comments Basophils (test code = Basophils) 0.5 <=1.0 [facility] CenterIbirhtsIOKSIYJYUD3852-15-03 20:08:00 Test Item Value Reference Range Interpretation Comments Neutrophils # (test code = Neutrophils 3.4 1.5-8.1 #) [facility] CenterIpoqpuoIDLDVDGSSZ1898-40-56 20:08:00 Test Item Value Reference Range Interpretation Comments Lymphocytes # (test code = Lymphocytes 0.9 1.0-5.5 #) [facility] CenterAqsutkzULLXYYFLNS9491-14-48 20:08:00 Test Item Value Reference Range Interpretation Comments Monocytes # (test code = Monocytes #) 0.[address] [facility] HospitalEslcmcrGFRZIV3497-86-35 20:08:00 Test Item Value Reference Range Interpretation Comments LDL (Calculated) (test code = LDL 70 (Calculated)) [facility] HospitalJbpbmkvSERFFV4045-72-87 20:08:00 Test Item Value Reference Range Interpretation Comments Trig (test code = Trig) [address] [facility] HospitalDdswrjqTKEFAF6647-05-43 20:08:00 Test Item Value Reference Range Interpretation Comments Chol (test code = Chol) [address] [facility] HospitalFihrjryGSGQHI5844-46-63 20:08:00 Test Item Value Reference Range Interpretation Comments HDL (test code = HDL) [address] [facility] [address] HospitalObfthbrLVSFGV5800-42-87 20:08:00 Test Item Value Reference Range Interpretation Comments CHD Risk (test code = CHD Risk) 2.33 1 3.90-5.[address] [facility] [address] HospitalQqbzczjHPJDTA8873-63-13 20:08:00 Test Item Value Reference Range Interpretation Comments VLDL (test code = VLDL) 10 1 [facility] [id number] 19:32:00 Test Item Value Reference Range Interpretation Comments U Preg (test code = U Negative (08/05/20 1:32 Preg) PM[facility] [id number] 19:32:00 Test Item Value Reference Range Interpretation Comments U Preg (test code = U Negative (08/05/20 1:32 Preg) PM) [facility] [id number] 19:32:00 Test Item Value Reference Range Interpretation Comments U Preg (test code = U Negative (08/05/20 1:32 Preg) PM) [facility] [id number] 19:32:00 Test Item Value Reference Range Interpretation Comments U Preg (test code = U Negative (08/05/20 1:32 Preg) PM) [facility] [id number] 19:32:00 Test Item Value Reference Range Interpretation Comments U Preg (test code = U Negative (08/05/20 1:32 Preg) PM) [facility] [id number] 19:32:00 Test Item Value Reference Range Interpretation Comments U Preg (test code = U Negative (08/05/20 1:32 Preg) PM) [facility] [id number] 19:32:00 Test Item Value Reference Range Interpretation Comments U Preg (test code = U Negative (08/05/20 1:32 Preg) PM) [facility] [id number] 19:32:00 Test Item Value Reference Range Interpretation Comments U Preg (test code = U Negative (08/05/20 1:32 Preg) PM) [facility] [id number] 19:32:00 Test Item Value Reference Range Interpretation Comments U Preg (test code = U Negative (08/05/20 1:32 Preg) PM) [facility] [id number] 19:32:00 Test Item Value Reference Range Interpretation Comments U Preg (test code = U Negative (08/05/20 1:32 Preg) PM) [facility] [id number] 19:32:00 Test Item Value Reference Range Interpretation Comments U Preg (test code = U Negative (08/05/20 1:32 Preg) PM) [facility] [id number] 19:32:00 Test Item Value Reference Range Interpretation Comments U Preg (test code = U Negative (08/05/20 1:32 Preg) PM) [facility] [id number] 19:32:00 Test Item Value Reference Range Interpretation Comments U Preg (test code = U Negative (08/05/20 1:32 Preg) PM) [facility] [id number] 19:32:00 Test Item Value Reference Range Interpretation Comments U Preg (test code = U Negative (08/05/20 1:32 Preg) PM) [facility] [id number] 19:32:00 Test Item Value Reference Range Interpretation Comments U Preg (test code = U Negative (08/05/20 1:32 Preg) PM) [facility] [id number] 19:32:00 Test Item Value Reference Range Interpretation Comments U Preg (test code = U Negative (08/05/20 1:32 Preg) PM) [facility] [id number] 19:32:00 Test Item Value Reference Range Interpretation Comments U Preg (test code = U Negative (08/05/20 1:32 Preg) PM) [facility] [id number] 19:32:00 Test Item Value Reference Range Interpretation Comments U Preg (test code = U Negative (08/05/20 1:32 Preg) PM) [facility] [id number] 19:32:00 Test Item Value Reference Range Interpretation Comments U Preg (test code = U Negative (08/05/20 1:32 Preg) PM) [facility] [id number] 19:32:00 Test Item Value Reference Range Interpretation Comments U Preg (test code = U Negative (08/05/20 1:32 Preg) PM) [facility] [id number] 19:32:00 Test Item Value Reference Range Interpretation Comments U Preg (test code = U Negative (08/05/20 1:32 Preg) PM) [facility] [id number] 19:32:00 Test Item Value Reference Range Interpretation Comments U Preg (test code = U Negative (08/05/20 1:32 Preg) PM) [facility]annBLO[facility] [id number] 09:55:00 Test Item Value Reference Range Interpretation Comments CULTURE (BEAKER) (test No growth in 5 days code = 1095) BLOOD [id number] 20:01:00 Test Item Value Reference Range Interpretation Comments CULTURE (BEAKER) (test No growth in 5 days code = 1095) EAR CULTURE + GRAM [id number] 10:54:00 Test Item Value Reference Range Interpretation [...] gram variable (BEAKER) (test code = rods 642413) GRAM STAIN RESULT <1+ gram (BEAKER) (test code = positive cocci 507481) in pairs BASIC METABOLIC [id number] 06:46:00 Test Item Value Reference Range Interpretation [...] PATIEN TS. CBC W/PLT COUNT & AUTO [id number] 06:02:00 Test Item Value Reference Range Interpretation [...] code = 2801) URINALYSIS W/ REFLEX URINE [id number] 14:41:00 Test Item Value Reference Range Interpretation [...] SOURCE(BEAKER) (test code = 2795) BASIC METABOLIC [id number] 05:45:00 Test Item Value Reference Range Interpretation [...] PATIEN TS. CBC W/PLT COUNT & AUTO [id number] 05:11:00 Test Item Value Reference Range Interpretation [...] PERCENT (BEAKER) (test code = 2801) HEMOGLOBIN [id number] 13:15:00 Test Item Value Reference Range Interpretation Comments HEMOGLOBIN A1C (BEAKER) (test code = 5.6 % 4.3-6.1 368) BASIC METABOLIC [id number] 05:44:00 Test Item Value Reference Range Interpretation [...] S NOT APPLICABLE FOR DIALYSIS PATIEN TS. [id number] 05:16:00 Test Item Value Reference Range Interpretation [...] thrombosis and/or pulmonary embolus.HIGH RISK: Target INR is 2.5-3.5 for patients wiht mechanical heart valves.CBC W/PLT COUNT & AUTO [id number] 05:13:00 Test Item Value Reference Range Interpretation [...] PERCENT (BEAKER) (test code = 2801) SCREEN, [id number] 20:10:00 Test Item Value Reference Range Interpretation Comments TEST URINE (BEAKER) (test Negative code = 583) BASIC METABOLIC [id number] 18:39:00 Test Item Value Reference Range Interpretation [...] GFR I S NOT APPLICABLE FOR DIALYSIS JAYESH MENDOZA.
--- NOTE | 2023-07-24 21:15 | ER ---
Nurse's Notes [facility] Name: Zehra Carrillo Age: 37 yrs Sex: Female : 1985 Arrival Date: 07/24/2023 Time: 15:34 Bed IW1 Private MD: Diagnosis: Presentation: 07/24 15:56 Coronavirus screen: Vaccine status: Patient reports receiving the 2nd dose of the covid kd3 vaccine. Ebola Screen: No symptoms or risks identified at this time. Initial Sepsis Screen: Does the patient meet any 2 criteria? No. Patient's initial sepsis screen is negative. Does the patient have a suspected source of infection? No. Patient's initial sepsis screen is negative. Risk Assessment: Do you want to hurt yourself or someone else? Patient reports no desire to harm self or others. Onset of symptoms was July 24, 2023. 15:56 Method Of Arrival: Ambulatory kd3 15:56 Acuity: FRANCISCO 4 kd3 15:58 Chief complaint: Patient states: I have the flu, i have pneumonia and i have strep. Non kd3 of the antibiotics are working for me and i am not getting better. I have been on the antibiotics for over a week. Triage Assessment: 15:57 General: Appears uncomfortable, Behavior is calm, cooperative. Pain: Complains of pain kd3 in body aches and sore throat. Historical: - Allergies: 15:57 No Known Allergies; kd3 - PMHx: 15:57 ADD/ADHD; cervical cancer; constipation; Pancreatitis; kd3 - PSHx: 15:57 Cholecystectomy; radical hysterectomy; kd3 - Immunization history:: Adult Immunizations up to date. - Social history:: Smoking status: Patient denies any tobacco usage or history of. Assessment: 21:14 General: Pt left before being seen by provider. Attempted to call for her multiple kd3 times, no response. . Vital Signs: 15:56 BP 117 / 86; Pulse 81; Resp 16; Temp 100.3(O); Pulse Ox 98% ; Weight 77.56 kg; Height 5 kd3 ft. 6 in. ; 15:56 Body Mass Index 27.60 (77.56 kg, 167.64 cm) kd3 ED Course: 15:35 Patient arrived in ED. rg4 15:57 Triage completed. kd3 15:57 Arm band placed on right wrist. kd3 16:09 Anibal Varner PA is PHCP. cp 16:09 Mao Sterling DO is Attending Physician. cp Administered Medications: No medications were administered Outcome: 21:15 Patient left the ED. kd3 Signatures: Anibal Varner PA PA Melia Dyer rg4 Sun Tapia, RN RN kd3
--- NOTE | 2023-07-24 21:15 | EDPHYS ---
Physician Documentation [facility] Name: Zehra Carrillo Age: 37 yrs Sex: Female : 1985 Arrival Date: 07/24/2023 Time: 15:34 Bed IW1 Private MD: ED Physician Historical: - Allergies: 07/24 15:57 No Known Allergies; kd3 - PMHx: 15:57 ADD/ADHD; cervical cancer; constipation; Pancreatitis; kd3 - PSHx: 15:57 Cholecystectomy; radical hysterectomy; kd3 - Immunization history:: Adult Immunizations up to date. - Social history:: Smoking status: Patient denies any tobacco usage or history of. Vital Signs: 15:56 BP 117 / 86; Pulse 81; Resp 16; Temp 100.3(O); Pulse Ox 98% ; Weight 77.56 kg; Height 5 kd3 ft. 6 in. ; 15:56 Body Mass Index 27.60 (77.56 kg, 167.64 cm) kd3 MDM: 16:10 Patient medically screened. cp 17:05 ED course: patient called in lobby and no answer. cp Administered Medications: No medications were administered Disposition: 20:31 I was immediately available on-site in the Emergency Department for consultation in the ms3 care of the patient. Disposition Summary: 07/24/23 21:15 Eloped Notes: Disposition: before being seen by provider kd3 Reason: unknown kd3 Signatures: Anibal Varner PA PA cp Sims, Marcus, DO DO ms3 Sun Tapia RN RN kd3
[2023-07-24 21:20] VITALS: BP 117/86; TEMP 100.3; O2SAT 98
== END 2023-07-24 21:15 | disposition left against medical advice (07) ==
LOC: ER 15:34
DX: Z53.21 Procedure and treatment not carried out due to patient leaving prior to being seen by health care provider (principal)
CPT/HCPCS: 99281